=== PATIENT | female | born 1960 | race Caucasian/White ===

== ENCOUNTER → 2025-09-07 | Outpatient (CLI) | payer OTHER, SELFPAY ==
--- OUTSIDE RECORDS SUMMARY | 2025-09-07 07:20 | XMS RPT_ITS | CCD ---
Author Organization [facility] Care Team Providers Care Extrusion Bender Name Role Phone Kory Alejandro Primary Care Provider KARLAAUGUSTINE KORY Tom Primary Care Unavailable Javon Kory Tom Primary Care Provider Karlanathennikos Kory Tom Unavailable [phone] Flip Barbosa Unavailable Javon Kory Tom Unavailable Unavailable Unavailable Unavailable Unavailable Unavailable Primary Care Provider Unavailabl e Javon Kory Tom Primary Care Provider Javon DOLL Kory Tom Primary Care Provider [phone] Flip Barbosa Admitting Unavailable Javon, Dr. Kory Lae Primary Care Debbie vailable Flip Barbosa Referring Unavailable Flip Barbosa Attending Unavailable Dr. Kory Alejandro Primary Care Debbie vailable Flip Barbosa Attending Unavailable Abbas, Dr. Carbajal Attending Unavailable Dr. Kory Alejandro Primary Care Debbie vailable Kory Alejandro DO Primary Care Provider NORMAN DURON Attending Unavailable KORY ALEJANDRO Primary Care Unavailable Javon DOLL Kory Tom Primary Care Provider Dr. Norman Duron Attending Unav ailable Javon, Dr. Kory Lea Primary Care Debbie vailable FLIP BARBOSA Attending Unavailable Dr. Kory Alejandro Referring Debbie vailable Javon, Dr. Kory Lea Primary Care Debbie vailable FLIP BARBOSA Attending Unavailable Javon, Dr. Kory Lea Referring Debbie vailable Javon, Dr. Kory Lea Primary Care Debbie vailable NORMAN DURON Referring Unavailable GENERIC PROVIDER, NO ASSIGNED PCP Primary Care Unavailable NORMAN JUARES Attending Unavailable GENERIC PROVIDER, NO ASSIGNED PCP Primary Care Unavailable NORMAN JUARES Referring Unavailable GENERIC PROVIDER, NO ASSIGNED PCP Primary Care Unavailable NORMAN JUARES Referring Unavailable GENERIC PROVIDER, NO ASSIGNED PCP Primary Care Unavailable OZIEL ROCK, PILO BRAGA Attending Unav ailable RC, [place] Primary Care Unavailable SELF Referring Unavailable OZIEL ROCK, PILO BRAGA Attending Unav ailable LANZINGER PILO ROCK Referring Unav ailable RC, [place] Primary Care Unavailable OZIEL ROCK, PILO BRAGA Admitting Unav ailable LANZINGER , PILO BRAGA Attending Unav ailable RC, [place] Primary Care Unavailable SELF Referring Unavailable OZIEL ROCK, PILO BRAGA Attending Unav ailable RC, [place] Primary Care Unavailable SANCHEZZINGNARAYAN ROCK, PILO BRAGA Attending Unav ailable RC, [place] Primary Care Unavailable SELF Referring Unavailable KORY ALEJANDRO Attending Unavailable KORY ALEJANDRO Primary Care Unavailable JAVON, KORY Attending Unavailable KORY ALEJANDRO Primary Care Unavailable KORY ALEJANDRO Primary Care Unavailable KORY ALEJANDRO Attending Unavailable GABINO LUIS Referring Unavai angel ALEJANDRO, [facility] Primary Care Unavail able GABINO LUIS Referring Unavai labquan ALEJANDRO, [facility] Primary Care Unavail able CLINT BERNSTEIN~[phone], CLINT Bañuelos At tending Unavailable CLINT BERNSTEIN~[phone], CLINT Bañuelos Ad mitting Unavailable AA NO PCP NO PCP, NO PCP~[phone] AA NO PCP Pr imary Care Unavailable RC, ROCKY Primary Care Unavailable CORDELL HERNANDEZ Attending Unavailable RC, ROCKY Primary Care Unavailable SELF Referring Unavailable JEMMA MCKEE Attending Unavailable MIRIAN GARCIA Attending Unavailable KORY ALEJANDRO Primary Care Unavail able FLIP BARBOSA Attending Unavailable KORY ALEJANDRO Primary Care Unavail able FLIP BARBOSA Attending Unavailable GENERIC PROVIDER, NO ASSIGNED PCP Primary Care Unavailable GAURANG GIL Attending Unav ailable [facility] Care Unavail able EDGAR BARBOSAONIS K Attending Unavailable [facility] Primary Care Unavail able MARY LIM Attending Unavailable MIRIAN GARCIA Attending Unavailable GENERIC PROVIDER, NO ASSIGNED PCP Primary Care Unavailable HIGABRIELLA, FLIP K Attending Unavailable GENERIC PROVIDER, NO ASSIGNED PCP Primary Care Unavailable MIRIAN GARCIA Attending Unavailable GENERIC PROVIDER, NO ASSIGNED PCP Primary Care Unavailable DEBJAArabella, FLIP K Attending Unavailable [facility] Primary Care Unavail able HIJAZ, FLIP K Attending Unavailable [facility] Primary Care Unavail able MIRIAN GARCIA Attending Unavailable PETRILL, [facility] Primary Care Unavail able GENERIC PROVIDER, NO ASSIGNED PCP Primary Care Unavailable GENERIC PROVIDER, NO ASSIGNED PCP Primary Care Unavailable GENERIC PROVIDER, NO ASSIGNED PCP Primary Care Unavailable [facility] Primary Care Unavail able PETRILLA, [facility] Primary Care Unavail able NORMAN DURON Referring Unavailable GABINO LUIS Referring Unavai lable PETRILL, [facility] Primary Care Unavail able PETRILL, [facility] Referring Unavail able PETRILLA, [facility] Primary Care Unavail able PETRILLA, [facility] Referring Unavail able PETRILLA, [facility] Primary Care Unavail able HIJAZ, FLIP K Admitting Unavailable HIJAZ, FLIP K Attending Unavailable [facility] Primary Care Unavail able HIJAZ, FLIP K Admitting Unavailable HIJAZ, FLIP K Attending Unavailable [facility] Primary Care Unavail able NORMAN DURON Referring Unavailable NORMAN DURON Referring Unavailable REHAN MCRAE Referring Unavailable REHAN MCRAE Attending Unavailable Care Physician, No Primary Primary Care Unava ilable Allergies Allergy Classification Reported Allergen(s) Allergy Type Date of Onset Reaction(s) Facility Adhesive Tape (8 sources) Adhesive Tape Substance Allergy RI-Bgxzjfi-Ph cullen [facility] [address] Work Phone: Bupivacaine (16 sources) Bupivacaine; Translations: [Marcaine SOLN] Drug Allergy Anaphylaxis [facility] Chlorhexidine (1 source) Chlorhexidine Drug Allergy Rash [facility] Latex (1 source) Latex Substance Allergy Unknown [facility] Comment on above: allergic to powder i n gloves Lidocaine (1 source) Lidocaine Drug Allergy Anaphylaxis [facility] Nuts (not including peanuts) (9 sources) Nuts (not including peanuts) Food Allergy Other, Angioedema, Facial Swelling [facility] Comment on above: SOB Opioid Agonists (9 sources) Meperidine; Translations: [Demerol SOLN] Drug Allergy Unknown [facility] Comment on above: Pt states she was to ldshe was allergic, but does not know reaction Procaine (1 source) Procaine Drug Allergy Anaphylaxis [facility] Sulfonamides (antibiotic) (9 sources) Sulfonamides (Antibiotic); Translations: [sulfa] Drug Allergy Rash [facility] Unclassified (1 source) Tree Resp Distress, Rash [facility] Unclassified (1 source) Tape - Adhesive, Bandaids, Paper Blistering Dis. [facility] Unclassified (6 sources) Soap; Translations: [SOAP] 01-03-20 Rash, Itching [facility] Unclassified (6 sources) Perfume; Translations: [PERFUME] 01-03-20 Resp Distress, Other [facility] Comment on above: CAN'T CATCH MY EDVIN TH Unclassified (1 source) ULTRASOUND GEL- ITCHING RASH Rash, Itching [facility] Comment on above: ULTRASOUND GEL- ITCH ING RASH Unclassified (1 source) BLUE DYE- RASH, ITCHING Rash, Itching [facility] Comment on above: BLUE DYE- RASH, ITCH ING Unclassified (20 sources) Novocain SOLN; Translations: [Novocain SOLN] Allergy to drug (finding) [place]-Duvdwki-Ms [place] [address] Work Phone: Unclassified (20 sources) H-R Ultrasound Jelly GEL; Translations: [H-R Ultrasound Jelly GEL] Allergy to drug (finding) AD-Xdnmchr-Hs [place] [address] Work Phone: Unclassified (20 sources) [place]; Translations: [WALNUT] Allergy to substance (finding) 07-10-20 [facility] Other [place] [facility] Unclassified (20 sources) Latex Exam Gloves MISC; Translations: [Latex Exam Gloves MISC] Allergy to drug (finding) MB-Whmafvq-Kd [facility] [address] Work Phone: Unclassified (20 sources) Chlorhexidine CONC; Translations: [Chlorhexidine CONC] Allergy to drug (finding) JD-Hwzwovr-Wv [facility] [address] Work Phone: Unclassified (20 sources) Adhesive Tape TAPE; Translations: [Adhesive Tape TAPE] Allergy to drug (finding) EX-Dblwptx-Yp [facility] [address] Work Phone: (20 sources) Adhesive Tape Propensity to adverse reactions to drug 10-01-20 15 [place] (20 sources) Meperidine; Translations: [Demerol SOLN] Drug Allergy 10-01-20 15 Unknown [place] (4 sources) Sulfonamides (Antibiotic) Propensity to adverse reactions to drug 10-01-20 15 [place] (20 sources) Other; Translations: [OTHER] Propensity to adverse reactions 12-09-19 16 Anaphylaxis [place] (20 sources) Bupivacaine; Translations: [BUPIVACAINE HCL] Drug Allergy 07-18-20 20 [facility] Work Phone: (20 sources) pine bark extract Drug Allergy 11-01-18 70 Dermatitis, Hives, Itching, Shortness Of Breath [facility] Work Phone: (20 sources) Ultrasound Gel Propensity to adverse reactions to drug 07-02-19 96 Hives, Itching [facility] Work Phone: (20 sources) Bupivacaine; Translations: [Marcaine SOLN] Drug Allergy 07-18-20 20 [facility] (20 sources) Bupivacaine; Translations: [Bupivacaine HCl SOLN] Drug Allergy [facility] Work Phone: (20 sources) Hale nut Allergy to substance (finding) [facility] Work Phone: (20 sources) Sulfamethoxazole; Translations: [sulfa] Drug Allergy [facility] Work Phone: (20 sources) Lidocaine; Translations: [lidocaine] Drug Allergy 11-14-19 16 Anaphylaxis EN-Ummtmsp-Vj [place] [address] Work Phone: (2 sources) Sulphated Oil Drug Allergy 06-30-20 22 Rash [facility] (9 sources) Sucralfate; Translations: [Carafate] Drug Allergy [facility] [address] Work Phone: (20 sources) Chlorhexidine; Translations: [CHLORHEXIDINE] Drug Allergy 07-01-20 [facility] (20 sources) Meperidine Drug Allergy 09-04-20 22 [facility] (20 sources) Procaine; Translations: [PROCAINE] Drug Allergy 07-01-20 [facility] (20 sources) Sucralfate; Translations: [SUCRALFATE] Drug Allergy 07-01-20 [facility] (20 sources) Sulfamethoxazole; Translations: [SULFAMETHOXAZOLE ] Allergy to substance 01-02-20 [facility] (20 sources) Sulfonamides (Antibiotic) Drug Intolerance 10-01-20 15 [facility] (20 sources) Latex; Translations: [LATEX] Propensity to adverse reactions 06-24-20 22 [facility] (18 sources) Wound Dressings Drug Allergy 06-01-20 23 Rash [facility] (20 sources) moxifloxacin; Translations: [Moxifloxacin HCl TABS] Drug Allergy 07-30-20 23 Swelling, Anaphylaxis [facility] [address] Work Phone: (3 sources) Cashew nut Propensity to adverse reactions 10-07-20 23 Shortness of breath [facility] (13 sources) Blue Dyes (Parenteral) Propensity to adverse reactions 01-05-20 24 Hives, Itching [facility] (11 sources) cashew nut allergenic extract Drug Allergy 10-07-20 23 Shortness of breath [facility] (2 sources) Hale nut Propensity to adverse reactions 10-19-20 24 Shortness of breath [facility] (2 sources) Gyne-Moistrin Drug Allergy 10-19-20 24 Hives [facility] (8 sources) Bupivacaine; Translations: [BUPIVACAINE] Drug Allergy 07-01-20 22 [facility] 1 Repository (5 sources) Guamanian walnut allergenic extract; Translations: [ANDORRAN WALNUT] Drug Allergy 01-03-20 24 [facility] 1 Repository (7 sources) Hale nut; Translations: [PINE NUT] Propensity to adverse reactions to food (disorder) 11-01-18 70 [facility] 1 Repository (5 sources) Quinolones (Antibiotic); Translations: [QUINOLONES] Propensity to adverse reactions to drug (disorder) 01-03-20 24 [facility] 1 Repository (7 sources) Sulfonamides (Antibiotic); Translations: [SULFA (SULFONAMIDE ANTIBIOTICS)] Propensity to adverse reactions to drug (disorder) 07-01-20 22 [facility] 1 Repository (5 sources) Tree and shrub pollen; Translations: [TREE AND SHRUB POLLEN] Propensity to adverse reactions to drug (disorder) 01-03-20 24 [facility] 1 Repository (4 sources) AMOXICILLIN-POT CLAVULANATE; Translations: [AMOXICILLIN-POT CLAVULANATE] Propensity to adverse reactions to drug (disorder) 07-20-20 24 [facility] 1 Repository (5 sources) NUT - UNSPECIFIED; Translations: [NUT - UNSPECIFIED] Propensity to adverse reactions to food (disorder) 01-03-20 24 [facility] 1 Repository (5 sources) ADHESIVE TAPE-SILICONES; Translations: [ADHESIVE TAPE-SILICONES] Propensity to adverse reactions to drug (disorder) 01-03-20 24 [facility] 1 Repository (7 sources) BLUE DYE; Translations: [BLUE DYE] Propensity to adverse reactions to drug (disorder) 07-01-20 22 [facility] 1 Repository (2 sources) Adhesive Tape; Translations: [ADHESIVE TAPE (ROSINS)] Propensity to adverse reactions (disorder) 10-01-20 15 [facility] Repository (3 sources) moxifloxacin; Translations: [MOXIFLOXACIN] Drug Allergy 06-18-20 23 [facility] Repository (2 sources) tree nut, unspecified; Translations: [TREE NUTS] Propensity to adverse reactions to drug (disorder) 07-03-20 [facility] Repository (1 source) Adhesive agent; Translations: [Adhesive] Propensity to adverse reactions (disorder) [facility] Repository (1 source) Bupivacaine Drug Allergy [facility] Repository (1 source) Chlorhexidine Drug Allergy [facility] Repository (1 source) Lidocaine Drug Allergy [facility] Repository (1 source) Meperidine Drug Allergy [facility] Repository (1 source) Sucralfate Drug Allergy [facility] Repository (1 source) Sulfonamides (Antibiotic) Drug allergy (disorder) [facility] Repository (1 source) nut Drug allergy (disorder) [facility] Repository (1 source) Novocain Drug allergy (disorder) [facility] Repository (1 source) ultrasound coupling medium Drug allergy (disorder) [facility] Repository (1 source) pine oil; Translations: [pine oil] Food allergy (disorder) [facility] Repository (1 source) fentaNYL; Translations: [FENTANYL] Drug Allergy 09-03-20 [facility] 2 Repository Medications Current Medications Medication Drug Class(es) Dates Sig (Normalized) Sig (Original) acetaminophen 500 mg oral tablet (20 sources) Start: 08-20-2021 acetaminophen (Tylenol) 500 MG tablet Take by mouth. 08/20/2021 Active Start: 08-20-2021 Tylenol Extra Strength 500 MG Oral Tablet Quantity: 0 Refills: 0 Ordered: 20-Aug-2021 DO Start : 20-Aug-2021 Active Start: 03-25-2021 End: 04-03-2021 take 2 tablets by mouth every six hours Tylenol Extra Strength 500 mg oral tablet ; 2 tab(s) orally every 6 hours - do not combine with Tylenol #3 Quantity: 30 Refills: 0 Ordered: 25-Mar-2021 Jacinta Mclaughlin Start: 25-Mar-2021 End: 03-Apr-2021 Generic Substitution Allowed Comments: This product contains acetaminophen. Do not use with any other product containing acetaminophen to prevent possible liver damage. acetaminophen (T ylenol 8 Hour) 650 MG ER tablet Take 650 mg by mouth. 0 Active Comment on above: This product contain s acetaminophen. Do not use with any other product containing acetaminophen to prevent possible liver damage. Take 650 mg by mouth . amoxicillin 500 mg oral capsule (1 source) Penicillin-class Antibacterial Start: 10-29-20 amoxicillin (AMOXIL) 500 MG capsule Four tabs 30-60 minutes before dental procedures 24 capsule 1 10/29/2020 Active Anusol Suppositories 51% rectal suppository (obsolete) (1 source) Anusol Supposito dru 51% rectal suppository (obsolete) ; 1 suppository(ies) rectal 2 times a day, As Needed Quantity: 0 Refills: 0 Ordered: 17-Mar-2021 Josie Álvarez Generic Substitution Allowed ascorbic acid 1000 mg oral tablet (20 sources) Vitamin C take 1 tablet by mouth in the morning Ascorbic Acid (vitamin C) 1000 MG tablet Take 1,000 mg by mouth in the morning and 1,000 mg in the evening. Active V-R Vitamin C 10 00 MG TABS Quantity: 0 Refills: 0 Ordered: 26-Nov-2022 DO Active azithromycin 250 mg oral tablet (1 source) Macrolide Antimicrobial Start: 01-01-2023 End: 01-06-2023 azithromycin (Zithromax) 250 MG tablet Take 2 tabs (500 mg) by mouth today, than 1 daily for 4 days. 6 tablet 0 01/01/2023 01/06/2023 Active baclofen 10 mg oral tablet (2 sources) gamma-Aminobutyric Acid-ergic Agonist Start: 10-19-2024 baclofen (Lioresal) 10 MG tablet 10 mg tab compounded to be taken vaginally q day 30 tablet 2 10/19/2024 Active busPIRone hydrochloride 5 mg oral tablet (12 sources) Start: 05-16-2024 End: 04-23-2025 take 1 tablet by mouth twice daily busPIRone (Buspar) 5 MG tablet Take 1 tablet (5 mg) by mouth 2 times daily for 60 doses. 180 tablet 1 07/27/2024 04/23/2025 Active Calcium (13 sources) Phosphate Binder, Calcium take 1200 mg by mouth once daily CALCIUM PO Take 1,200 mg by mouth daily. Active take 1200 mg by mouth once daily CALCIUM PO Take 1,200 mg by mouth daily. 0 Active Calcium 600-5 MG-MCG tablet (13 sources) Calcium 600-5 MG-MCG tablet Take by mouth. 0 Active cefuroxime 250 mg oral tablet (1 source) Cephalosporin Antibacterial Start: 3 End: 3 take 1 tablet by mouth twice daily cefuroxime (Ceftin) 250 MG tablet Take 1 tablet (250 mg) by mouth 2 times daily for 10 days. 20 tablet 0 11/27/2022 12/07/2022 Active cloNIDine hydrochloride 0.1 mg oral tablet (20 sources) Central alpha-2 Adrenergic Agonist Start: 2 End: 4 take 1 tablet by mouth once daily cloNIDine (Catapres) 0.1 MG tablet TAKE 1 TABLET BY MOUTH EVERY DAY 90 tablet 1 10/09/2024 Active cloNIDine HCl - 0.1 MG Oral Tablet Quantity: 0 Refills: 0 Ordered: 21-Nov-2021 DO Active cloNIDine HCl (C ATAPRES) 0.1 mg tablet Take 0.1 mg by mouth. 0 Active Comment on above: Take 0.1 mg by mouth . Collagen (4 sources) take 1 capsule by mouth once daily collagen ; 1 cap(s) orally once a day Quantity: 0 Refills: 0 Ordered: 17-Mar-2021 Josie Álvarez Generic Substitution Allowed COLLAGEN PO Take by mouth 0 Active cycloSPORINE (Restasis) 0.05 % ophthalmic emulsion (2 sources) Start: 09-25-2024 take 1 drop(s) into the eye(s) every twelve hours cycloSPORINE (Restasis) 0.05 % ophthalmic emulsion Administer 1 drop into both eyes every 12 hours. 09/25/2024 Active d-biotin 2.5 mg oral tablet (1 source) take 1 tablet by mouth once daily biotin 2.5 mg oral tablet ; 1 tab(s) orally once a day Quantity: 0 Refills: 0 Ordered: 17-Mar-2021 Josie Álvarez Generic Substitution Allowed gabapentin 300 mg oral capsule (20 sources) Anti-epilepti c Agent Start: 10-11-2024 take 1 capsule by mouth three times daily gabapentin (Neurontin) 300 MG capsule TAKE 1 CAPSULE BY MOUTH THREE TIMES DAILY 90 capsule 2 10/11/2024 Active Start: 07-07-2024 gabapentin (Ne urontin) 300 MG capsule One tid 90 capsule 2 07/07/2024 Active Start: 03-30-2023 End: 07-07-2024 gabapentin (Neurontin) 300 M G capsule Take one BID 60 capsule 2 01/05/2024 Active Start: 01-01-2023 End: 01-08-2023 gabapentin (Neurontin) 300 M G capsule Take one BID 60 capsule 2 01/08/2023 Active Start: 10-01-2022 End: 01-08-2023 gabapentin (Neurontin) 100 M G capsule One q AM 30 capsule 2 10/01/2022 01/08/2023 Discontinued (Dose adjustment) Start: 10-01-2022 End: 01-01-2023 take 1 capsule by mouth once daily at bedtime gabapentin (Neurontin) 300 MG capsule TAKE 1 CAPSULE BY MOUTH EVERYDAY AT BEDTIME 30 capsule 2 10/01/2022 01/01/2023 Discontinued (Reorder) Start: 07-04-2021 End: 07-04-2022 take 1 capsule by mouth once daily at bedtime Gabapentin 300 MG Oral Capsule TAKE 1 CAPSULE BY MOUTH EVERYDAY AT BEDTIME Quantity: 30 Refills: 2 Ordered: 11-Nov-2021 Vaughn Galvan MD Start : 04-Jul-2021 Active Start: 04-21-2021 End: 12-25-2021 take 1-3 capsules by mouth at bedtime Gabapentin 100 MG Oral Capsule TAKE 1 TO 3 CAPSULES BY MOUTH AT BEDTIME Quantity: 90 Refills: 2 Ordered: 18-Aug-2021 Vaughn Galvan MD Start : 21-Apr-2021 End : 25-Dec-2021 Complete Comment on above: TAKE 1 CAPSULE BY MO UT EVERYDAY AT BEDTIME Handicap Placard MISC (1 source) Start: 08-07-2020 Handicap Placard MISC by Does not apply route DX: Hip and Lumbar Arthritis Duration: 2 years 1 each 0 08/07/2020 Active hydrocortisone acetate 25 mg rectal suppository (20 sources) Corticosteroid Start: 07-23-2020 End: 01-01-2023 hydrocortisone (Anusol-HC) 25 MG suppository Date: 07/23/2020 09:49:00 EDT 07/23/2020 Active Anusol-HC 25 MG Rectal Suppository Quantity: 0 Refills: 0 Ordered: 28-Aug-2020 DO Active hydroxychloroquine sulfate 200 mg oral tablet (9 sources) Antimalarial, Antirheumatic Agent Start: 03-28-2024 hydroxychloroquine (Plaquenil) 200 MG tablet Take 200 mg by mouth Nightly. Takes 100 mg in am 03/28/2024 Active Magnesium (20 sources) take 1 capsule by mouth once daily Magnesium 400 MG capsule Take 400 mg by mouth daily. Active take 1 capsule by mouth once yemi ly Magnesium 400 MG capsule Take 400 mg by mouth daily. 0 Active methylPREDNISolone (1 source) Corticosteroid Start: 11-27-2022 End: 12-04-2022 methylPREDNISolone (Medrol Dospak) 4 MG tablets Take as directed on package. 21 tablet 0 11/27/2022 12/04/2022 Active mometasone furoate 0.001 mg/mg topical ointment (18 sources) Corticosteroid Start: 10-01-2022 End: 10-08-2023 mometasone (Elocon) 0.1 % ointment Apply topically daily. 60 g 1 10/01/2022 10/08/2023 Active Multiple Vitamin (Multi Vitamin) tablet (20 sources) Multiple Vitamin (Multi Vitamin) tablet Every 24 hours. Active Multiple Vitamin (Multi Vitamin) tablet Every 24 hours. 0 Active Multiple Vitamins-Minerals (MULTIVITAL PO) (3 sources) Multiple Vitamins-Minerals (MULTIVITAL PO) Take by mouth 0 Active Multivitamin preparation (1 source) take 1 tablet by mouth once daily Multiple Vitamins oral tablet ; 1 tab(s) orally once a day Quantity: 0 Refills: 0 Ordered: 17-Mar-2021 Josie Álvarez Generic Substitution Allowed ondansetron 8 mg oral tablet (20 sources) Serotonin-3 Receptor Antagonist Start: 021 Ondansetron 8 MG Oral Tablet Disintegrating Quantity: 60 Refills: 0 Ordered: 09-May-2021 DO Start : 09-May-2021 Active Start: 02-12-2021 End: 10-19-2024 take 1 tablet by mouth every eight hours as needed for nausea and vomiting ondansetron (Zofran) 8 MG tablet Take 1 tablet (8 mg) by mouth every 8 hours as needed for nausea or vomiting. 20 tablet 2 10/19/2024 Active Start: 10-11-2020 take 1 tablet by qamar th every eight hours as needed for nausea ondansetron (ZOFRAN) 8 MG tablet Take 1 tablet by mouth every 8 hours as needed for Nausea or Vomiting 30 tablet 0 10/11/2020 Active Ondansetron HCl - 8 MG Oral Tablet Quantity: 0 Refills: 0 Ordered: 21-Apr-2021 DO Active Comment on above: Take 8 mg by mouth. oxyCODONE hydrochloride 5 mg oral tablet (1 source) Opioid Agonist Start: 03-25-20 End: 03-28-20 take 1 tablet by mouth every six hours oxyCODONE 5 mg oral tablet ; 1 tab(s) orally every 6 hours as needed for [id number] Quantity: 15 Refills: 0 Ordered: 25-Mar-2021 Jacinta Mclaughlin Start: 25-Mar-2021 End: 28-Mar-2021 Generic Substitution Allowed Comments: Caution federal law prohibits the transfer of this drug to any person other than the person for whom it was prescribed.It is very important that you take or use this exactly as directed. Do not skip doses or discontinue unless directed by your doctor.May cause drowsiness or dizziness.This prescription cannot be refilled.Using more of this medication than prescribed may cause serious breathing problems. Comment on above: Caution federal law prohibits the transfer of this drug to any person other than the person for whom it was prescribed.It is very important that you take or use this exactly as directed. Do not skip doses or discontinue unless directed by your doctor.May cause drowsiness or dizziness.This prescription cannot be refilled.Using more of this medication than prescribed may cause serious breathing problems. SUMAtriptan 100 mg oral tablet (20 sources) Serotonin-1b and Serotonin-1d Receptor Agonist Start: 07-03-20 End: 08-28-20 24 take 1 tablet by mouth every two hours, then take 4 tablets by mouth every week SUMAtriptan (Imitrex) 100 MG tablet TAKE 1 TABLET BY MOUTH at on set of headache, may repeat in 2 hours if needed. no more than 4 tablets per week 9 tablet 5 08/28/2024 Active Start: 01-09-2022 SUMAtriptan Sanchez ccinate 100 MG Oral Tablet Quantity: 8 Refills: 0 Ordered: 26-Jan-2022 DO Start : 09-Jan-2022 Active Start: 01-09-2022 SUMAtriptan (I MITREX) 100 mg tablet One stat and repeat in 2 hours , no more than 4 per week 0 01/09/2022 Active Start: 08-20-2021 Imitrex 6 MG/0 .5ML SOLN Quantity: 0 Refills: 0 Ordered: 20-Aug-2021 DO Start : 20-Aug-2021 Active Comment on above: One stat and repeat in 2 hours , no more than 4 per week UNABLE TO FIND (18 sources) take 6000 mg by mout h in the morning UNABLE TO FIND Take 6,000 mg by mouth in the morning and 6,000 mg in the evening. Collagen . Active take 6000 mg by mouth in the mor gokul UNABLE TO FIND Take 6,000 mg by mouth in the morning and 6,000 mg in the evening. Collagen . 0 Active vit A,C and M-zrfpzk-qajsusg s (Ocuvite) tablet (13 sources) vit A,C and E-yomaira tein-minerals (Ocuvite) tablet Active vit A,C and E-yomaira tein-minerals (Ocuvite) tablet vitamin b12 0.0667 mg/ml ora l solution (8 sources) Vitamin B12 Cyanocobalamin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 L100.0100, L3200.1100, L500.3400 #### [facility] [address] [place], [address] BUN/CRE Normal 10-20 [facility] Comment on above: Result Comment: @ PA TEINT UOSET AND WITH HOLDING SIMPLE THINGS WITH @REGISTRATION. ALINA HAS MANY NOTES. AFTER WORKING ON @ HER ORDER, MISC TESTS TOO. CALLED HER BACK. SHE WANTED @ TO LEAVE. LATE FOR APPT. I SAID I COULD DRAW. SHE SAT @ SIDEWAYS IN THE CHAIR AND WANTED HAND DRAWN I THINK. I @ ASKED HER TO TURN HER BODY AND LEGS TO BE IN FRONT SO I @ COULD LOOK AT OPTIONS AND DRAW. SHE INSTANTLY SAID GIVE ME @ MY ORDERS, AND LEFT. THAT QUICK. Performed By: #### L 500.2500, L100.0100, L3200.1100, L500.3400 #### [facility] [address] [place], [address] Calcium Normal 7.6-11.0 [facility] Comment on above: Result Comment: @ PA TEINT UOSET AND WITH HOLDING SIMPLE THINGS WITH @REGISTRATION. ALINA HAS MANY NOTES. AFTER WORKING ON @ HER ORDER, MISC TESTS TOO. CALLED HER BACK. SHE WANTED @ TO LEAVE. LATE FOR APPT. I SAID I COULD DRAW. SHE SAT @ SIDEWAYS IN THE CHAIR AND WANTED HAND DRAWN I THINK. I @ ASKED HER TO TURN HER BODY AND LEGS TO BE IN FRONT SO I @ COULD LOOK AT OPTIONS AND DRAW. SHE INSTANTLY SAID GIVE ME @ MY ORDERS, AND LEFT. THAT QUICK. Performed By: #### L 500.2500, L100.0100, L3200.1100, L500.3400 #### [facility] [address] [place], [address] CL Normal 98-108 [facility] Comment on above: Result Comment: @ PA TEINT UOSET AND WITH HOLDING SIMPLE THINGS WITH @REGISTRATION. ALINA HAS MANY NOTES. AFTER WORKING ON @ HER ORDER, MISC TESTS TOO. CALLED HER BACK. SHE WANTED @ TO LEAVE. LATE FOR APPT. I SAID I COULD DRAW. SHE SAT @ SIDEWAYS IN THE CHAIR AND WANTED HAND DRAWN I THINK. I @ ASKED HER TO TURN HER BODY AND LEGS TO BE IN FRONT SO I @ COULD LOOK AT OPTIONS AND DRAW. SHE INSTANTLY SAID GIVE ME @ MY ORDERS, AND LEFT. THAT QUICK. Performed By: #### L 500.2500, L100.0100, L3200.1100, L500.3400 #### [facility] [address] [place], [address] CO2 Normal 21.0-32.0 [facility] Comment on above: Result Comment: @ PA TEINT UOSET AND WITH HOLDING SIMPLE THINGS WITH @REGISTRATION. ALINA HAS MANY NOTES. AFTER WORKING ON @ HER ORDER, MISC TESTS TOO. CALLED HER BACK. SHE WANTED @ TO LEAVE. LATE FOR APPT. I SAID I COULD DRAW. SHE SAT @ SIDEWAYS IN THE CHAIR AND WANTED HAND DRAWN I THINK. I @ ASKED HER TO TURN HER BODY AND LEGS TO BE IN FRONT SO I @ COULD LOOK AT OPTIONS AND DRAW. SHE INSTANTLY SAID GIVE ME @ MY ORDERS, AND LEFT. THAT QUICK. Performed By: #### L 500.2500, L100.0100, L3200.1100, L500.3400 #### [facility] [address] [place], [place], [phone] CREAT,SERUM Normal 0.70-1.20 [facility] Comment on above: Result Comment: @ PA TEINT UOSET AND WITH HOLDING SIMPLE THINGS WITH @REGISTRATION. ALINA HAS MANY NOTES. AFTER WORKING ON @ HER ORDER, MISC TESTS TOO. CALLED HER BACK. SHE WANTED @ TO LEAVE. LATE FOR APPT. I SAID I COULD DRAW. SHE SAT @ SIDEWAYS IN THE CHAIR AND WANTED HAND DRAWN I THINK. I @ ASKED HER TO TURN HER BODY AND LEGS TO BE IN FRONT SO I @ COULD LOOK AT OPTIONS AND DRAW. SHE INSTANTLY SAID GIVE ME @ MY ORDERS, AND LEFT. THAT QUICK. Performed By: #### L 500.2500, L100.0100, L3200.1100, L500.3400 #### [facility] [address] [place], [address] eGFR Normal >60 [facility] Comment on above: Result Comment: @ PA TEINT UOSET AND WITH HOLDING SIMPLE THINGS WITH @REGISTRATION. ALINA HAS MANY NOTES. AFTER WORKING ON @ HER ORDER, MISC TESTS TOO. CALLED HER BACK. SHE WANTED @ TO LEAVE. LATE FOR APPT. I SAID I COULD DRAW. SHE SAT @ SIDEWAYS IN THE CHAIR AND WANTED HAND DRAWN I THINK. I @ ASKED HER TO TURN HER BODY AND LEGS TO BE IN FRONT SO I @ COULD LOOK AT OPTIONS AND DRAW. SHE INSTANTLY SAID GIVE ME @ MY ORDERS, AND LEFT. THAT QUICK. Performed By: #### L 500.2500, L100.0100, L3200.1100, L500.3400 #### [facility] [address] [place], [place], [phone] GAP Normal 5-15 [facility] Comment on above: Result Comment: @ PA TEINT UOSET AND WITH HOLDING SIMPLE THINGS WITH @REGISTRATION. ALINA HAS MANY NOTES. AFTER WORKING ON @ HER ORDER, MISC TESTS TOO. CALLED HER BACK. SHE WANTED @ TO LEAVE. LATE FOR APPT. I SAID I COULD DRAW. SHE SAT @ SIDEWAYS IN THE CHAIR AND WANTED HAND DRAWN I THINK. I @ ASKED HER TO TURN HER BODY AND LEGS TO BE IN FRONT SO I @ COULD LOOK AT OPTIONS AND DRAW. SHE INSTANTLY SAID GIVE ME @ MY ORDERS, AND LEFT. THAT QUICK. Performed By: #### L 500.2500, L100.0100, L3200.1100, L500.3400 #### [facility] [address] [place], [place], [phone] GLU Normal 70-99 [facility] Comment on above: Result Comment: @ PA TEINT UOSET AND WITH HOLDING SIMPLE THINGS WITH @REGISTRATION. ALINA HAS MANY NOTES. AFTER WORKING ON @ HER ORDER, MISC TESTS TOO. CALLED HER BACK. SHE WANTED @ TO LEAVE. LATE FOR APPT. I SAID I COULD DRAW. SHE SAT @ SIDEWAYS IN THE CHAIR AND WANTED HAND DRAWN I THINK. I @ ASKED HER TO TURN HER BODY AND LEGS TO BE IN FRONT SO I @ COULD LOOK AT OPTIONS AND DRAW. SHE INSTANTLY SAID GIVE ME @ MY ORDERS, AND LEFT. THAT QUICK. Performed By: #### L 500.2500, L100.0100, L3200.1100, L500.3400 #### [facility] [address] [place], [address] Potassium Normal 3.3-5.1 [facility] Comment on above: Result Comment: @ PA TEINT UOSET AND WITH HOLDING SIMPLE THINGS WITH @REGISTRATION. ALINA HAS MANY NOTES. AFTER WORKING ON @ HER ORDER, MISC TESTS TOO. CALLED HER BACK. SHE WANTED @ TO LEAVE. LATE FOR APPT. I SAID I COULD DRAW. SHE SAT @ SIDEWAYS IN THE CHAIR AND WANTED HAND DRAWN I THINK. I @ ASKED HER TO TURN HER BODY AND LEGS TO BE IN FRONT SO I @ COULD LOOK AT OPTIONS AND DRAW. SHE INSTANTLY SAID GIVE ME @ MY ORDERS, AND LEFT. THAT QUICK. Performed By: #### L 500.2500, L100.0100, L3200.1100, L500.3400 #### [facility] [address] [place], [address] Basic Metabolic Profile (BMP) Normal 133-145 [facility] Comment on above: Result Comment: @ PA TEINT UOSET AND WITH HOLDING SIMPLE THINGS WITH @REGISTRATION. ALINA HAS MANY NOTES. AFTER WORKING ON @ HER ORDER, MISC TESTS TOO. CALLED HER BACK. SHE WANTED @ TO LEAVE. LATE FOR APPT. I SAID I COULD DRAW. SHE SAT @ SIDEWAYS IN THE CHAIR AND WANTED HAND DRAWN I THINK. I @ ASKED HER TO TURN HER BODY AND LEGS TO BE IN FRONT SO I @ COULD LOOK AT OPTIONS AND DRAW. SHE INSTANTLY SAID GIVE ME @ MY ORDERS, AND LEFT. THAT QUICK. Performed By: #### L 500.2500, L100.0100, L3200.1100, L500.3400 #### [facility] [address] [place], [address] CBC W/Diff, Automatedon 11-0 Absolute Neut Normal 2.0-7.7 [facility] Comment on above: Result Comment: @ PA TEINT UOSET AND WITH HOLDING SIMPLE THINGS WITH @REGISTRATION. ALINA HAS MANY NOTES. AFTER WORKING ON @ HER ORDER, MISC TESTS TOO. CALLED HER BACK. SHE WANTED @ TO LEAVE. LATE FOR APPT. I SAID I COULD DRAW. SHE SAT @ SIDEWAYS IN THE CHAIR AND WANTED HAND DRAWN I THINK. I @ ASKED HER TO TURN HER BODY AND LEGS TO BE IN FRONT SO I @ COULD LOOK AT OPTIONS AND DRAW. SHE INSTANTLY SAID GIVE ME @ MY ORDERS, AND LEFT. THAT QUICK. Performed By: #### L 500.2500, L100.0100, L3200.1100, L500.3400 #### [facility] [address] [place], [address] HCT Normal 37-47 [facility] Comment on above: Result Comment: @ PA TEINT UOSET AND WITH HOLDING SIMPLE THINGS WITH @REGISTRATION. ALINA HAS MANY NOTES. AFTER WORKING ON @ HER ORDER, MISC TESTS TOO. CALLED HER BACK. SHE WANTED @ TO LEAVE. LATE FOR APPT. I SAID I COULD DRAW. SHE SAT @ SIDEWAYS IN THE CHAIR AND WANTED HAND DRAWN I THINK. I @ ASKED HER TO TURN HER BODY AND LEGS TO BE IN FRONT SO I @ COULD LOOK AT OPTIONS AND DRAW. SHE INSTANTLY SAID GIVE ME @ MY ORDERS, AND LEFT. THAT QUICK. Performed By: #### L 500.2500, L100.0100, L3200.1100, L500.3400 #### [facility] [address] [place], [address] HGB Normal 12.0-15.0 [facility] Comment on above: Result Comment: @ PA TEINT UOSET AND WITH HOLDING SIMPLE THINGS WITH @REGISTRATION. ALINA HAS MANY NOTES. AFTER WORKING ON @ HER ORDER, MISC TESTS TOO. CALLED HER BACK. SHE WANTED @ TO LEAVE. LATE FOR APPT. I SAID I COULD DRAW. SHE SAT @ SIDEWAYS IN THE CHAIR AND WANTED HAND DRAWN I THINK. I @ ASKED HER TO TURN HER BODY AND LEGS TO BE IN FRONT SO I @ COULD LOOK AT OPTIONS AND DRAW. SHE INSTANTLY SAID GIVE ME @ MY ORDERS, AND LEFT. THAT QUICK. Performed By: #### L 500.2500, L100.0100, L3200.1100, L500.3400 #### [facility] [address] [place], [address] [phone]) MCH Normal 27.0-32.0 [facility] Comment on above: Result Comment: @ PA TEINT UOSET AND WITH HOLDING SIMPLE THINGS WITH @REGISTRATION. ALINA HAS MANY NOTES. AFTER WORKING ON @ HER ORDER, MISC TESTS TOO. CALLED HER BACK. SHE WANTED @ TO LEAVE. LATE FOR APPT. I SAID I COULD DRAW. SHE SAT @ SIDEWAYS IN THE CHAIR AND WANTED HAND DRAWN I THINK. I @ ASKED HER TO TURN HER BODY AND LEGS TO BE IN FRONT SO I @ COULD LOOK AT OPTIONS AND DRAW. SHE INSTANTLY SAID GIVE ME @ MY ORDERS, AND LEFT. THAT QUICK. Performed By: #### L 500.2500, L100.0100, L3200.1100, L500.3400 #### [facility] [address] [place], [place], [phone] [facility] Normal 32-36 [facility] Comment on above: Result Comment: @ PA TEINT UOSET AND WITH HOLDING SIMPLE THINGS WITH @REGISTRATION. ALINA HAS MANY NOTES. AFTER WORKING ON @ HER ORDER, MISC TESTS TOO. CALLED HER BACK. SHE WANTED @ TO LEAVE. LATE FOR APPT. I SAID I COULD DRAW. SHE SAT @ SIDEWAYS IN THE CHAIR AND WANTED HAND DRAWN I THINK. I @ ASKED HER TO TURN HER BODY AND LEGS TO BE IN FRONT SO I @ COULD LOOK AT OPTIONS AND DRAW. SHE INSTANTLY SAID GIVE ME @ MY ORDERS, AND LEFT. THAT QUICK. Performed By: #### L 500.2500, L100.0100, L3200.1100, L500.3400 #### [facility] [address] [place], [place], [phone] [facility] Normal 81-99 [facility] Comment on above: Result Comment: @ PA TEINT UOSET AND WITH HOLDING SIMPLE THINGS WITH @REGISTRATION. ALINA HAS MANY NOTES. AFTER WORKING ON @ HER ORDER, MISC TESTS TOO. CALLED HER BACK. SHE WANTED @ TO LEAVE. LATE FOR APPT. I SAID I COULD DRAW. SHE SAT @ SIDEWAYS IN THE CHAIR AND WANTED HAND DRAWN I THINK. I @ ASKED HER TO TURN HER BODY AND LEGS TO BE IN FRONT SO I @ COULD LOOK AT OPTIONS AND DRAW. SHE INSTANTLY SAID GIVE ME @ MY ORDERS, AND LEFT. THAT QUICK. Performed By: #### L 500.2500, L100.0100, L3200.1100, L500.3400 #### [facility] [address] [place], [address] ([phone]) NEUT% Normal 47-70 [facility] Comment on above: Result Comment: @ PA TEINT UOSET AND WITH HOLDING SIMPLE THINGS WITH @REGISTRATION. ALINA HAS MANY NOTES. AFTER WORKING ON @ HER ORDER, MISC TESTS TOO. CALLED HER BACK. SHE WANTED @ TO LEAVE. LATE FOR APPT. I SAID I COULD DRAW. SHE SAT @ SIDEWAYS IN THE CHAIR AND WANTED HAND DRAWN I THINK. I @ ASKED HER TO TURN HER BODY AND LEGS TO BE IN FRONT SO I @ COULD LOOK AT OPTIONS AND DRAW. SHE INSTANTLY SAID GIVE ME @ MY ORDERS, AND LEFT. THAT QUICK. Performed By: #### L 500.2500, L100.0100, L3200.1100, L500.3400 #### [facility] [address] [place], [place], [phone] ([phone]) PLT Normal 150-450 [facility] Comment on above: Result Comment: @ PA TEINT UOSET AND WITH HOLDING SIMPLE THINGS WITH @REGISTRATION. ALINA HAS MANY NOTES. AFTER WORKING ON @ HER ORDER, MISC TESTS TOO. CALLED HER BACK. SHE WANTED @ TO LEAVE. LATE FOR APPT. I SAID I COULD DRAW. SHE SAT @ SIDEWAYS IN THE CHAIR AND WANTED HAND DRAWN I THINK. I @ ASKED HER TO TURN HER BODY AND LEGS TO BE IN FRONT SO I @ COULD LOOK AT OPTIONS AND DRAW. SHE INSTANTLY SAID GIVE ME @ MY ORDERS, AND LEFT. THAT QUICK. Performed By: #### L 500.2500, L100.0100, L3200.1100, L500.3400 #### [facility] [address] [place], [address] [phone]) RBC Normal 4.2-5.4 [facility] Comment on above: Result Comment: @ PA TEINT UOSET AND WITH HOLDING SIMPLE THINGS WITH @REGISTRATION. ALINA HAS MANY NOTES. AFTER WORKING ON @ HER ORDER, MISC TESTS TOO. CALLED HER BACK. SHE WANTED @ TO LEAVE. LATE FOR APPT. I SAID I COULD DRAW. SHE SAT @ SIDEWAYS IN THE CHAIR AND WANTED HAND DRAWN I THINK. I @ ASKED HER TO TURN HER BODY AND LEGS TO BE IN FRONT SO I @ COULD LOOK AT OPTIONS AND DRAW. SHE INSTANTLY SAID GIVE ME @ MY ORDERS, AND LEFT. THAT QUICK. Performed By: #### L 500.2500, L100.0100, L3200.1100, L500.3400 #### [facility] [address] [place], [place], [phone] RDW CV Normal 11.6-14.6 [facility] Comment on above: Result Comment: @ PA TEINT UOSET AND WITH HOLDING SIMPLE THINGS WITH @REGISTRATION. ALINA HAS MANY NOTES. AFTER WORKING ON @ HER ORDER, MISC TESTS TOO. CALLED HER BACK. SHE WANTED @ TO LEAVE. LATE FOR APPT. I SAID I COULD DRAW. SHE SAT @ SIDEWAYS IN THE CHAIR AND WANTED HAND DRAWN I THINK. I @ ASKED HER TO TURN HER BODY AND LEGS TO BE IN FRONT SO I @ COULD LOOK AT OPTIONS AND DRAW. SHE INSTANTLY SAID GIVE ME @ MY ORDERS, AND LEFT. THAT QUICK. Performed By: #### L 500.2500, L100.0100, L3200.1100, L500.3400 #### [facility] [address] [place], [place], [phone] RDW SD Normal 35.1-43.9 [facility] Comment on above: Result Comment: @ PA TEINT UOSET AND WITH HOLDING SIMPLE THINGS WITH @REGISTRATION. ALINA HAS MANY NOTES. AFTER WORKING ON @ HER ORDER, MISC TESTS TOO. CALLED HER BACK. SHE WANTED @ TO LEAVE. LATE FOR APPT. I SAID I COULD DRAW. SHE SAT @ SIDEWAYS IN THE CHAIR AND WANTED HAND DRAWN I THINK. I @ ASKED HER TO TURN HER BODY AND LEGS TO BE IN FRONT SO I @ COULD LOOK AT OPTIONS AND DRAW. SHE INSTANTLY SAID GIVE ME @ MY ORDERS, AND LEFT. THAT QUICK. Performed By: #### L 500.2500, L100.0100, L3200.1100, L500.3400 #### [facility] [address] [place], [place], [phone] WBC Normal 4.4-11.0 [facility] Comment on above: Result Comment: @ PA TEINT UOSET AND WITH HOLDING SIMPLE THINGS WITH @REGISTRATION. ALINA HAS MANY NOTES. AFTER WORKING ON @ HER ORDER, MISC TESTS TOO. CALLED HER BACK. SHE WANTED @ TO LEAVE. LATE FOR APPT. I SAID I COULD DRAW. SHE SAT @ SIDEWAYS IN THE CHAIR AND WANTED HAND DRAWN I THINK. I @ ASKED HER TO TURN HER BODY AND LEGS TO BE IN FRONT SO I @ COULD LOOK AT OPTIONS AND DRAW. SHE INSTANTLY SAID GIVE ME @ MY ORDERS, AND LEFT. THAT QUICK. Performed By: #### L 500.2500, L100.0100, L3200.1100, L500.3400 #### [facility] [address] [place], [place], [phone] Immunoglobulins G/A/M/Mann IMMUNOGLOB A QN Normal [facility] Comment on above: Order Comment: N Result Comment: @ PA TEINT UOSET AND WITH HOLDING SIMPLE THINGS WITH @REGISTRATION. ALINA HAS MANY NOTES. AFTER WORKING ON @ HER ORDER, MISC TESTS TOO. CALLED HER BACK. SHE WANTED @ TO LEAVE. LATE FOR APPT. I SAID I COULD DRAW. SHE SAT @ SIDEWAYS IN THE CHAIR AND WANTED HAND DRAWN I THINK. I @ ASKED HER TO TURN HER BODY AND LEGS TO BE IN FRONT SO I @ COULD LOOK AT OPTIONS AND DRAW. SHE INSTANTLY SAID GIVE ME @ MY ORDERS, AND LEFT. THAT QUICK. Performed By: #### L 500.2500, L100.0100, L3200.1100, L500.3400 #### [facility] [address] [place], [address] IMMUNOGLOB E QN Normal [facility] Comment on above: Order Comment: N Result Comment: @ PA TEINT UOSET AND WITH HOLDING SIMPLE THINGS WITH @REGISTRATION. ALINA HAS MANY NOTES. AFTER WORKING ON @ HER ORDER, MISC TESTS TOO. CALLED HER BACK. SHE WANTED @ TO LEAVE. LATE FOR APPT. I SAID I COULD DRAW. SHE SAT @ SIDEWAYS IN THE CHAIR AND WANTED HAND DRAWN I THINK. I @ ASKED HER TO TURN HER BODY AND LEGS TO BE IN FRONT SO I @ COULD LOOK AT OPTIONS AND DRAW. SHE INSTANTLY SAID GIVE ME @ MY ORDERS, AND LEFT. THAT QUICK. Performed By: #### L 500.2500, L100.0100, L3200.1100, L500.3400 #### [facility] [address] [place], [address] IMMUNOGLOB G [facility] Comment on above: Order Comment: N Result Comment: @ PA TEINT UOSET AND WITH HOLDING SIMPLE THINGS WITH @REGISTRATION. ALINA HAS MANY NOTES. AFTER WORKING ON @ HER ORDER, MISC TESTS TOO. CALLED HER BACK. SHE WANTED @ TO LEAVE. LATE FOR APPT. I SAID I COULD DRAW. SHE SAT @ SIDEWAYS IN THE CHAIR AND WANTED HAND DRAWN I THINK. I @ ASKED HER TO TURN HER BODY AND LEGS TO BE IN FRONT SO I @ COULD LOOK AT OPTIONS AND DRAW. SHE INSTANTLY SAID GIVE ME @ MY ORDERS, AND LEFT. THAT QUICK. Performed By: #### L 500.2500, L100.0100, L3200.1100, L500.3400 #### [facility] [address] [place], [place], [phone] IMMUNOGLOB M [facility] Comment on above: Order Comment: N Result Comment: @ PA TEINT UOSET AND WITH HOLDING SIMPLE THINGS WITH @REGISTRATION. ALINA HAS MANY NOTES. AFTER WORKING ON @ HER ORDER, MISC TESTS TOO. CALLED HER BACK. SHE WANTED @ TO LEAVE. LATE FOR APPT. I SAID I COULD DRAW. SHE SAT @ SIDEWAYS IN THE CHAIR AND WANTED HAND DRAWN I THINK. I @ ASKED HER TO TURN HER BODY AND LEGS TO BE IN FRONT SO I @ COULD LOOK AT OPTIONS AND DRAW. SHE INSTANTLY SAID GIVE ME @ MY ORDERS, AND LEFT. THAT QUICK. Performed By: #### L 500.2500, L100.0100, L3200.1100, L500.3400 #### [facility] [address] [place], [address] Liver Profileon 09-04-2025 ALB Normal 3.4-4.8 [facility] Comment on above: Result Comment: @ PA TEINT UOSET AND WITH HOLDING SIMPLE THINGS WITH @REGISTRATION. ALINA HAS MANY NOTES. AFTER WORKING ON @ HER ORDER, MISC TESTS TOO. CALLED HER BACK. SHE WANTED @ TO LEAVE. LATE FOR APPT. I SAID I COULD DRAW. SHE SAT @ SIDEWAYS IN THE CHAIR AND WANTED HAND DRAWN I THINK. I @ ASKED HER TO TURN HER BODY AND LEGS TO BE IN FRONT SO I @ COULD LOOK AT OPTIONS AND DRAW. SHE INSTANTLY SAID GIVE ME @ MY ORDERS, AND LEFT. THAT QUICK. Performed By: #### L 500.2500, L100.0100, L3200.1100, L500.3400 #### [facility] [address] [place], [address] ALK PHOS Normal 35-104 [facility] Comment on above: Result Comment: @ PA TEINT UOSET AND WITH HOLDING SIMPLE THINGS WITH @REGISTRATION. ALINA HAS MANY NOTES. AFTER WORKING ON @ HER ORDER, MISC TESTS TOO. CALLED HER BACK. SHE WANTED @ TO LEAVE. LATE FOR APPT. I SAID I COULD DRAW. SHE SAT @ SIDEWAYS IN THE CHAIR AND WANTED HAND DRAWN I THINK. I @ ASKED HER TO TURN HER BODY AND LEGS TO BE IN FRONT SO I @ COULD LOOK AT OPTIONS AND DRAW. SHE INSTANTLY SAID GIVE ME @ MY ORDERS, AND LEFT. THAT QUICK. Performed By: #### L 500.2500, L100.0100, L3200.1100, L500.3400 #### [facility] [address] [place], [place], [phone] ALT Normal <=34 [facility] Comment on above: Result Comment: @ PA TEINT UOSET AND WITH HOLDING SIMPLE THINGS WITH @REGISTRATION. ALINA HAS MANY NOTES. AFTER WORKING ON @ HER ORDER, MISC TESTS TOO. CALLED HER BACK. SHE WANTED @ TO LEAVE. LATE FOR APPT. I SAID I COULD DRAW. SHE SAT @ SIDEWAYS IN THE CHAIR AND WANTED HAND DRAWN I THINK. I @ ASKED HER TO TURN HER BODY AND LEGS TO BE IN FRONT SO I @ COULD LOOK AT OPTIONS AND DRAW. SHE INSTANTLY SAID GIVE ME @ MY ORDERS, AND LEFT. THAT QUICK. Performed By: #### L 500.2500, L100.0100, L3200.1100, L500.3400 #### [facility] [address] [place], [place], [phone] ([phone]) AST Normal <=31 [facility] Comment on above: Result Comment: @ PA TEINT UOSET AND WITH HOLDING SIMPLE THINGS WITH @REGISTRATION. ALINA HAS MANY NOTES. AFTER WORKING ON @ HER ORDER, MISC TESTS TOO. CALLED HER BACK. SHE WANTED @ TO LEAVE. LATE FOR APPT. I SAID I COULD DRAW. SHE SAT @ SIDEWAYS IN THE CHAIR AND WANTED HAND DRAWN I THINK. I @ ASKED HER TO TURN HER BODY AND LEGS TO BE IN FRONT SO I @ COULD LOOK AT OPTIONS AND DRAW. SHE INSTANTLY SAID GIVE ME @ MY ORDERS, AND LEFT. THAT QUICK. Performed By: #### L 500.2500, L100.0100, L3200.1100, L500.3400 #### [facility] [address] [place], [address] [phone] D BILI Normal 0.00-0.30 [facility] Comment on above: Result Comment: @ PA TEINT UOSET AND WITH HOLDING SIMPLE THINGS WITH @REGISTRATION. ALINA HAS MANY NOTES. AFTER WORKING ON @ HER ORDER, MISC TESTS TOO. CALLED HER BACK. SHE WANTED @ TO LEAVE. LATE FOR APPT. I SAID I COULD DRAW. SHE SAT @ SIDEWAYS IN THE CHAIR AND WANTED HAND DRAWN I THINK. I @ ASKED HER TO TURN HER BODY AND LEGS TO BE IN FRONT SO I @ COULD LOOK AT OPTIONS AND DRAW. SHE INSTANTLY SAID GIVE ME @ MY ORDERS, AND LEFT. THAT QUICK. Performed By: #### L 500.2500, L100.0100, L3200.1100, L500.3400 #### [facility] [address] [place], [address] ([phone] T BILI Normal 0.00-1.30 [facility] Comment on above: Result Comment: @ PA TEINT UOSET AND WITH HOLDING SIMPLE THINGS WITH @REGISTRATION. ALINA HAS MANY NOTES. AFTER WORKING ON @ HER ORDER, MISC TESTS TOO. CALLED HER BACK. SHE WANTED @ TO LEAVE. LATE FOR APPT. I SAID I COULD DRAW. SHE SAT @ SIDEWAYS IN THE CHAIR AND WANTED HAND DRAWN I THINK. I @ ASKED HER TO TURN HER BODY AND LEGS TO BE IN FRONT SO I @ COULD LOOK AT OPTIONS AND DRAW. SHE INSTANTLY SAID GIVE ME @ MY ORDERS, AND LEFT. THAT QUICK. Performed By: #### L 500.2500, L100.0100, L3200.1100, L500.3400 #### [facility] [address] [place], [place], [phone] T PROT Normal 5.9-8.4 [facility] Comment on above: Result Comment: @ PA TEINT UOSET AND WITH HOLDING SIMPLE THINGS WITH @REGISTRATION. ALINA HAS MANY NOTES. AFTER WORKING ON @ HER ORDER, [facility] TESTS TOO. CALLED HER BACK. SHE WANTED @ TO LEAVE. LATE FOR APPT. I SAID I COULD DRAW. SHE SAT @ SIDEWAYS IN THE CHAIR AND WANTED HAND DRAWN I THINK. I @ ASKED HER TO TURN HER BODY AND LEGS TO BE IN FRONT SO I @ COULD LOOK AT OPTIONS AND DRAW. SHE INSTANTLY SAID GIVE ME @ MY ORDERS, AND LEFT. THAT QUICK. Performed By: #### L 500.2500, L100.0100, L3200.1100, L500.3400 #### [facility] [address] [place], [place], [phone] XR HIP RIGHT WITH PELVIS WHE N PERFORMED 2 OR 3 VIEWSon 08-29-2025 XR HIP RIGHT WITH PELVIS WHEN PERFORMED 2 OR 3 VIEWS Interpreted By: Judith Cooley, STUDY: XR HIP RIGHT WITH PELVIS WHEN PERFORMED 2 OR 3 VIEWS INDICATION: Signs/Symptoms:HIP PAIN COMPARISON: XR HIP RIGHT WITH PELVIS WHEN PERFORMED 2 OR 3 VIEWS 10/19/2024. ACCESSION NUMBER(S): [id number] ORDERING CLINICIAN: NORMAN DURON FINDINGS: No acute fracture or malalignment. Patient is status post right total hip arthroplasty. No perihardware fractures or lucencies. Alignment is anatomic. Right hip joint space is well maintained. IMPRESSION: 1. Right total hip arthroplasty without hardware complication. MACRO: None. Signed by: Judith Cooley 08/30/2025 7:26 PM Dictation workstation: [id number] [facility] 2025 CNPN Telephone (OPHTSK) -- ANCA HSU ([id number]) 1960 F Date Time Provider Department 08/24/25 JEMMA MCKEE OPHJULIANK During your visit today, we recorded the following information about you: Herbert Cook 2025 10:48 AM Addendum Requested prior authorization for cyclosporine 0.05% via phone call to [employer]. Reference # [id number] Per rep, turn around time is 24 hours. Herbert Cook 2025 10:46 AM Allergies As of Date: 2025 Noted Allergy Reaction DEMORAL (MEPERIDINE) 10/01/2015 10 - Anaphylaxis PINE NUT 11/01/1969 2 - Rash 4 - Hives 9 - Itching 12 - Shortness of Breath BUPIVACAINE HCL 07/18/2020 10 - Anaphylaxis ADHESIVE TAPE (ROSINS) 10/01/2015 2 - Rash Comments: Rash and blisters, Surgical glue as well BLUE DYE 07/01/2022 4 - Hives Comments: Ultrasound gel CARAFATE (SUCRALFATE) 07/01/2022 14 - Other: See Comments Comments: Oral skin sloughing CHLORHEXIDINE 07/01/2022 14 - Other: See Comments Comments: Petechiae, blisters LATEX 06/24/2022 14 - Other: See Comments Comments: Patient is allergic to the powder in latex gloves; develops blisters LIDOCAINE 08/03/2023 10 - Anaphylaxis MARCAINE (BUPIVACAINE) 07/01/2022 10 - Anaphylaxis MOXIFLOXACIN 06/18/2023 7 - Swelling Comments: Eye drop form, eye, tongue and lips swelling NOVACAINE (PROCAINE) 07/01/2022 10 - Anaphylaxis SULFA (SULFONAMIDE ANTIBIOTICS) 07/01/2022 2 - Rash TREE NUTS 07/03/2022 10 - Anaphylaxis Comments: Walnuts WALNUT 07/10/2022 10 - Anaphylaxis Date Reviewed: 06/15/2025 Reviewed by: Matilda Green LPN - Fully Assessed Reason for Visit: Insurance Authorization [[id number]] Cmt: Restasis/Cyclosporine Prescriptions as of 2025 - cycloSPORINE (RESTASIS) 0.05 % ophthalmic emulsion Use 1 drop in both eyes two times a day. - Olopatadine (PATADAY ONCE DAILY RELIEF) 0.2 % drop Use 1 drop in both eyes once daily. - baclofen 10 mg diazePAM 10 mg lidocaine 2% vaginal suppository (CPD) Use 1 Suppository vaginally daily at bedtime. - cyanocobalamin, vitamin B-12, (VITAMIN B-12 ORAL) Take by mouth. - busPIRone (BUSPAR) 5 mg tablet Take 1 tablet (5 mg) by mouth 2 times daily for 60 doses. - hydrOXYchloroQUINE (PLAQUENIL) 200 mg tablet 200 mg at night, 100 mg in the morning - CALCIUM CARBONATE ORAL Take 1,200 mg by mouth once daily. - nortriptyline (PAMELOR) 10 mg capsule - cetirizine (ZYRTEC) 10 mg tablet Take 10 mg by mouth once daily. - mometasone (ELOCON) 0.1 % ointment APPLY TO AFFECTED AREA TOPICALLY EVERY DAY - hydrocortisone (ANUSOL-HC) 25 mg suppository 25 mg by RECTAL route as needed. - COLLAGEN MISC 6,000 mg two times a day. - folic acid 800 mcg tablet Take 800 mcg by mouth two times a week. Takes twice per day - BIOTIN ORAL Take 1 tablet by mouth once daily. Pt states she takes 5000mg - Multivitamin capsule Take 1 capsule by mouth once daily. - Ascorbic Acid 1,000 mg tablet Take 1,000 mg by mouth twice daily. - Alpha Lipoic Acid 600 mg cap Take 600 mg by mouth twice daily. - cloNIDine HCl (CATAPRES) 0.1 mg tablet Take 0.1 mg by mouth daily at bedtime. - gabapentin (NEURONTIN) 300 mg capsule Take 300 mg by mouth three times a day. - ondansetron (ZOFRAN) 8 mg tablet Take 8 mg by mouth every 8 hours as needed. - SUMAtriptan (IMITREX) 100 mg tablet One stat and repeat in 2 hours , no more than 4 per week Meds Comments as of 06/16/2023: She is using Preservative Free Artificial tears . Problem List As Of Date 2025 Noted Resolved Plantar fascial fibromatosis [M72.2] 12/26/2021 Calcaneal spur of right foot [M77.31] 12/26/2021 Migraine [G43.909] 05/21/2023 Combined forms of age-related cataract of both *06/11/2023 06/11/2023 Reflex sympathetic dystrophy of right leg [G90.*01/25/2024 Preop examination [Z01.818] 04/09/2025 Arthritis of carpometacarpal (CMC) joint of rig*04/09/2025 Carpal tunnel syndrome on right [G56.01] 04/09/2025 Positive RADHA (antinuclear antibody) [R76.89] 04/09/2025 Encounter Status:Closed by HERBERT COOK on 08/24/25 Normal [facility] CULTURE, URINE, ROUTINEon Bacteria identified Cx Nom (U) SEE NOTE Abnormal [facility] Comment on above: Result Comment: CULTURE, URINE, ROUTINE Micro Number: [id number] Test Status: Final Specimen Source: Urine Specimen Quality: Adequate Result: Greater than 100,000 CFU/mL of Escherichia coli E.coli INT ASHLEY AMOX/CLAVULANATE S <=2 AMP/SULBACTAM S <=2 CEFAZOLIN NR <=1 2 CEFEPIME S <=0.12 CEFTAZIDIME S <=0.5 CEFTRIAXONE S <=0.25 CIPROFLOXACIN S <=0.06 GENTAMICIN S <=1 IMIPENEM S <=0.25 LEVOFLOXACIN S <=0.12 MEROPENEM S <=0.25 NITROFURANTOIN S 32 PIP/TAZOBACTAM S <=4 TRIMETHOPRIM/SULFA S <=20 S = Susceptible I = Intermediate R = Resistant NS = Not susceptible SDD = Susceptible Dose Dependent * = Not Tested NR = Not Reported NN = See Therapy Comments THERAPY COMMENTS Note 1: For infections other than uncomplicated UTI caused by E. coli, K. pneumoniae or P. mirabilis: Cefazolin is resistant if ASHLEY > or = 8 mcg/mL. (Distinguishing susceptible versus intermediate for isolates with ASHLEY < or = 4 mcg/mL requires additional testing.) Note 2: For uncomplicated UTI caused by E. coli, K. pneumoniae or P. mirabilis: Cefazolin is susceptible if ASHLEY <32 mcg/mL and predicts susceptible to the oral agents cefaclor, cefdinir, cefpodoxime, cefprozil, cefuroxime, cephalexin and loracarbef. Performed By: #### 3 95, 7909 #### [facility] [place] [address] Assistant Superintendent For Curriculum: Tyler Mcrae MD NOTEon 08-20-2025 NOTE Normal [facility] Comment on above: Result Comment: This urine was analyzed for the presence of WBC, RBC, bacteria, casts, and other formed elements. Only those elements seen were reported. Performed By: #### 3 95, 7909 #### [facility] [place] [address] Assistant Superintendent For Curriculum: Tyler Mcrae MD URINALYSIS REFLEXon 08-20-20 25 Appearance (U) CLEAR Normal CLEAR [facility] Comment on above: Performed By: #### 3 95, 7909 #### [facility] [place] [address] Assistant Superintendent For Cur[employer]: Tyler Mcrae MD BACTERIA MODERATE Abnormal NONE SEEN [facility] Comment on above: Performed By: #### 3 95, 7909 #### [facility] [place] [address] Assistant Superintendent For Cur[employer]: Tyler Mcrae MD Bilirubin Ql (U) Negative Normal NEGATIVE [facility] Comment on above: Performed By: #### 3 95, 7909 #### [facility] [place] [address] Assistant Superintendent For Cur[employer]: Tyler Mcrae MD Color (U) YELLOW Normal YELLOW [facility] Comment on above: Performed By: #### 3 95, 7909 #### [facility] [place] [address] Assistant Superintendent For Cur[employer]: Tyler Mcrae MD Glucose Ql (U) Negative Normal NEGATIVE [facility] Comment on above: Performed By: #### 3 95, 7909 #### [facility] of [place] [address] Assistant Superintendent For Curriculum: Tyler Mcrae MD HYALINE CAST 0-5 Abnormal NONE SEEN [facility] Comment on above: Performed By: #### 3 95, 7909 #### [facility] of [place] [address] Assistant Superintendent For Curriculum: Tyler Mcrae MD Ketones Ql (U) Negative Normal NEGATIVE [facility] Comment on above: Performed By: #### 3 95, 7909 #### [facility] [place] [address] Assistant Superintendent For Cur[employer]ulum: Tyler Mcrae MD Leukocyte esterase Test strip Ql (U) TRACE Abnormal NEGATIVE [facility] Comment on above: Performed By: #### 3 95, 7909 #### [facility] of [place] [address] Assistant Superintendent For Curriculum: Tyler Mcrae MD Nitrite Ql (U) Positive Abnormal NEGATIVE [facility] Comment on above: Performed By: #### 3 95, 7909 #### [facility] [place] [address] Assistant Superintendent For Curriculum: Tyler Mcrae MD OCCULT BLOOD Negative Normal NEGATIVE [facility] Comment on above: Performed By: #### 3 95, 7909 #### [facility] of [place] [address] Assistant Superintendent For Curriculum: Tyler Mcrae MD pH (U) 7.0 [pH] Normal 5.0-8.0 [facility] Comment on above: Performed By: #### 3 95, 7909 #### [facility] of [place] [address] Assistant Superintendent For Curriculum: Tyler Mcrae MD Protein Ql (U) Negative Normal NEGATIVE [facility] Comment on above: Performed By: #### 3 95, 7909 #### [facility] of [address] [place] [address] Assistant Superintendent For Curriculum: Tyler Mcrae MD RBC NONE SEEN Normal < OR = 2 [facility] Comment on above: Performed By: #### 3 95, 7909 #### [facility] of [place] [address] Assistant Superintendent For Curriculum: Tyler Mcrae MD Specific gravity (U) [Rel density] 1.012 Normal 1.001-1.035 [facility] Comment on above: Performed By: #### 3 95, 7909 #### [facility] of [place] [address] Assistant Superintendent For Curriculum: Tyler Mcrae MD SQUAMOUS EPITHELIAL CELLS 0-5 Normal < OR = 5 [facility] Comment on above: Performed By: #### 3 95, 7909 #### [facility] [place] [address] Assistant Superintendent For Cur[employer]: Tyler Mcrae MD WBC 0-5 Normal < OR = 5 [facility] Comment on above: Performed By: #### 3 95, 7909 #### [facility] of [place] [address] Assistant Superintendent For Curriculum: Tyler Mcrae MD CULTURE, URINE, ROUTINEon Bacteria identified Cx Nom (U) SEE NOTE Abnormal [facility] Comment on above: Result Comment: CULTURE, URINE, ROUTINE Micro Number: [id number] Test Status: Final Specimen Source: Urine, clean catch Specimen Quality: Adequate Result: Greater than 100,000 CFU/mL of Escherichia coli E.coli INT ASHLEY AMOX/CLAVULANATE S 4 AMP/SULBACTAM S <=2 CEFAZOLIN NR <=1 2 CEFEPIME S <=0.12 CEFTAZIDIME S <=0.5 CEFTRIAXONE S <=0.25 CIPROFLOXACIN S <=0.06 GENTAMICIN S <=1 IMIPENEM S <=0.25 LEVOFLOXACIN S <=0.12 MEROPENEM S <=0.25 NITROFURANTOIN S <=16 PIP/TAZOBACTAM S <=4 TRIMETHOPRIM/SULFA S <=20 S = Susceptible I = Intermediate R = Resistant NS = Not susceptible SDD = Susceptible Dose Dependent * = Not Tested NR = Not Reported NN = See Therapy Comments THERAPY COMMENTS Note 1: For infections other than uncomplicated UTI caused by E. coli, K. pneumoniae or P. mirabilis: Cefazolin is resistant if ASHLEY > or = 8 mcg/mL. (Distinguishing susceptible versus intermediate for isolates with ASHLEY < or = 4 mcg/mL requires additional testing.) Note 2: For uncomplicated UTI caused by E. coli, K. pneumoniae or P. mirabilis: Cefazolin is susceptible if ASHLEY <32 mcg/mL and predicts susceptible to the oral agents cefaclor, cefdinir, cefpodoxime, cefprozil, cefuroxime, cephalexin and loracarbef. Performed By: #### 3 95, 7909 #### [facility] [place] [address] Assistant Superintendent For Curriculum: Tyler Mcrae MD NOTEon 07-29-2025 NOTE Normal [facility] Comment on above: Result Comment: This urine was analyzed for the presence of WBC, RBC, bacteria, casts, and other formed elements. Only those elements seen were reported. Performed By: #### 3 95, 7909 #### [facility] [place] [address] Assistant Superintendent For Cur[employer]ulum: Tyler Mcrae MD URINALYSIS REFLEXon 07-29-20 25 Appearance (U) CLOUDY Abnormal CLEAR [facility] Comment on above: Performed By: #### 3 95, 7909 #### [facility] [place] [address] Assistant Superintendent For Cur[employer]: Tyler Mcrae MD BACTERIA MANY Abnormal NONE SEEN [facility] Comment on above: Performed By: #### 3 95, 7909 #### [facility] [place] [address] Assistant Superintendent For Cur[employer]ulum: Tyler Mcrae MD Bilirubin Ql (U) Negative Normal NEGATIVE [facility] Comment on above: Performed By: #### 3 95, 7909 #### [facility] [address] Assistant Superintendent For Curriculum: Tyler Mcrae MD Color (U) YELLOW Normal YELLOW [facility] Comment on above: Performed By: #### 3 95, 7909 #### [facility] of [place] [address] Assistant Superintendent For Curriculum: Tyler Mcrae MD Glucose Ql (U) Negative Normal NEGATIVE [facility] Comment on above: Performed By: #### 3 95, 7909 #### [facility] of [place] [address] Assistant Superintendent For Curriculum: Tyler Mcrae MD HYALINE CAST 0-5 Abnormal NONE SEEN [facility] Comment on above: Performed By: #### 3 95, 7909 #### [facility] [place] [address] Assistant Superintendent For Cur[employer]ulum: Tyler Mcrae MD Ketones Ql (U) Negative Normal NEGATIVE [facility] Comment on above: Performed By: #### 3 95, 7909 #### [facility] of [place] [address] Assistant Superintendent For Curriculum: Tyler Mcrae MD Leukocyte esterase Test strip Ql (U) 3+ Abnormal NEGATIVE [facility] Comment on above: Performed By: #### 3 95, 7909 #### [facility] [place] [address] Assistant Superintendent For Curriculum: Tyler Mcrae MD Nitrite Ql (U) Negative Normal NEGATIVE [facility] Comment on above: Performed By: #### 3 95, 7909 #### [facility] of [place] [address] Assistant Superintendent For Cur[employer]ulum: Tyler Mcrae MD OCCULT BLOOD Negative Normal NEGATIVE [facility] Comment on above: Performed By: #### 3 95, 7909 #### [facility] of [place] [address] Assistant Superintendent For Curriculum: Tyler Mcrae MD pH (U) 7.5 [pH] Normal 5.0-8.0 [facility] Comment on above: Performed By: #### 3 95, 7909 #### [facility] of [place] [address] Assistant Superintendent For Curriculum: Tyler Mcrae MD Protein Ql (U) 1+ Abnormal NEGATIVE [facility] Comment on above: Performed By: #### 3 95, 7909 #### [facility] of [place] [address] Assistant Superintendent For Curriculum: Tyler Mcrae MD RBC 0-2 Normal < OR = 2 [facility] Comment on above: Performed By: #### 3 95, 7909 #### [facility] of [place] [address] Assistant Superintendent For Curriculum: Tyler Mcrae MD Specific gravity (U) [Rel density] 1.016 Normal 1.001-1.035 [facility] Comment on above: Performed By: #### 3 95, 7909 #### [facility] of [place] [address] Assistant Superintendent For Curriculum: Tyler Mcrae MD SQUAMOUS EPITHELIAL CELLS 0-5 Normal < OR = 5 [facility] Comment on above: Performed By: #### 3 95, 7909 #### [facility] of [place] [address] Assistant Superintendent For Curriculum: Tyler Mcrae MD TRIPLE PHOSPHATE CRYSTALS MANY Abnormal NONE OR FEW [facility] Comment on above: Performed By: #### 3 95, 7909 #### [facility] of [place] [address] Assistant Superintendent For Curriculum: Tyler Mcrae MD WBC (U) [#/Vol] /uL Abnormal < OR = 5 [facility] Comment on above: Performed By: #### 3 95, 7909 #### [facility] of [place] [address] Assistant Superintendent For Curriculum: Tyler Mcrae MD CULTURE, URINE, ROUTINEon CULTURE, URINE, ROUTINE SEE NOTE Abnormal [facility] Comment on above: Result Comment: CULTURE, URINE, ROUTINE Micro Number: [id number] Test Status: Final Specimen Source: Not given Specimen Quality: Adequate Result: Greater than 100,000 CFU/mL of Escherichia coli E.coli INT ASHLEY AMOX/CLAVULANATE S 4 AMP/SULBACTAM S 4 CEFAZOLIN NR <=1 2 CEFEPIME S <=0.12 CEFTAZIDIME S <=0.5 CEFTRIAXONE S <=0.25 CIPROFLOXACIN S <=0.06 GENTAMICIN S <=1 IMIPENEM S <=0.25 LEVOFLOXACIN S <=0.12 MEROPENEM S <=0.25 NITROFURANTOIN S <=16 PIP/TAZOBACTAM S <=4 TRIMETHOPRIM/SULFA S <=20 S = Susceptible I = Intermediate R = Resistant NS = Not susceptible SDD = Susceptible Dose Dependent * = Not Tested NR = Not Reported NN = See Therapy Comments THERAPY COMMENTS Note 1: For infections other than uncomplicated UTI caused by E. coli, K. pneumoniae or P. mirabilis: Cefazolin is resistant if ASHLEY > or = 8 mcg/mL. (Distinguishing susceptible versus intermediate for isolates with ASHLEY < or = 4 mcg/mL requires additional testing.) Note 2: For uncomplicated UTI caused by E. coli, K. pneumoniae or P. mirabilis: Cefazolin is susceptible if ASHLEY <32 mcg/mL and predicts susceptible to the oral agents cefaclor, cefdinir, cefpodoxime, cefprozil, cefuroxime, cephalexin and loracarbef. Performed By: #### 3 05, 7935 #### [facility] [place] [address] Assistant Superintendent For Curriculum: Tyler Mcrae MD C-REACTIVE PROTEINon 025 CRP [Mass/Vol] mg/L Normal <8.0 [facility] Comment on above: Performed By: #### 9 0741, 399, 6006 #### [facility] [address] Assistant Superintendent For Curriculum: Tyler Mcrae MD CBC (INCLUDES DIFF/PLT)on Basophils (Bld) [#/Vol] 0.049 10*3/uL Normal 0-200 [facility] Comment on above: Performed By: #### 9 4624, 809, 6399 #### [facility] of [address], [address] [place] [address] Assistant Superintendent For Curriculum: Tyler Mcrae MD Basophils/100 WBC (Bld) 0.9 % Normal [facility] Comment on above: Performed By: #### 9 2665, 809, 6399 #### [facility] of [address], [address] [place] [address] Assistant Superintendent For Curriculum: Tyler Mcrae MD Eosinophils (Bld) [#/Vol] 0.103 10*3/uL Normal 15-500 [facility] Comment on above: Performed By: #### 9 2665, 809, 6399 #### [facility] of [address], [address] [place] [address] Assistant Superintendent For Curriculum: Tyler Mcrae MD Eosinophils/100 WBC (Bld) 1.9 % Normal [facility] Comment on above: Performed By: #### 9 2665, 809, 6399 #### [facility] of [place] [address] Assistant Superintendent For Curriculum: Tyler Mcrae MD Erythrocyte distribution width (RBC) [Ratio] 12.1 % Normal 11.0-15.0 [facility] Comment on above: Performed By: #### 9 0365, 809, 6399 #### [facility] of [place] [address] Assistant Superintendent For Curriculum: Tyler Mcrae MD Hematocrit (Bld) [Volume fraction] 34.8 % Low 35.0-45.0 [facility] Comment on above: Performed By: #### 9 2665, 809, 6399 #### [facility] of [place] [address] Assistant Superintendent For Curriculum: Tyler Mcrae MD Hemoglobin (Bld) [Mass/Vol] 11.6 g/dL Low 11.7-15.5 [facility] Comment on above: Performed By: #### 9 5945, 809, 6399 #### [facility] of [address] [place] [address] Assistant Superintendent For Curriculum: Tyler Mcrae MD Lymphocytes (Bld) [#/Vol] 1.723 10*3/uL Normal 850-3900 [facility] Comment on above: Performed By: #### 9 323, 809, 6399 #### [facility] [address], [address] [place] [address] Assistant Superintendent For Curriculum: Tyler Mcrae MD Lymphocytes/100 WBC (Bld) 31.9 % Normal [facility] Comment on above: Performed By: #### 9 164, 809, 6399 #### [facility] [place] [address] Assistant Superintendent For Curriculum: Tyler Mcrae MD MCH (RBC) [Entitic mass] 31.7 pg Normal 27.0-33.0 [facility] Comment on above: Performed By: #### 9 271, 809, 6399 #### [facility] [place] [address] Assistant Superintendent For Curriculum: Tyler Mcrae MD MCHC (RBC) [Mass/Vol] 33.3 g/dL Normal 32.0-36.0 [facility] Comment on above: Result Comment: For adults, a slight decrease in the calculated MCHC value (in the range of 30 to 32 g/dL) is most likely not clinically significant; however, it should be interpreted with caution in correlation with other red cell parameters and the patient's clinical condition. Performed By: #### 9 9385, 809, 6399 #### [facility] [place] [address] Assistant Superintendent For Curriculum: Tyler Mcrae MD MCV (RBC) [Entitic vol] 95.1 fL Normal 80.0-100.0 [facility] Comment on above: Performed By: #### 9 881, 809, 6399 #### [facility] [place] [address] Assistant Superintendent For Curriculum: Tyler Mcrae MD Monocytes (Bld) [#/Vol] 0.551 10*3/uL Normal 200-950 [facility] Comment on above: Performed By: #### 9 2665, 809, 6399 #### [facility] of [place] [address] Assistant Superintendent For Curriculum: Tyler Mcrae MD Monocytes/100 WBC (Bld) 10.2 % Normal [facility] Comment on above: Performed By: #### 9 5, 809, 6399 #### [facility] of [place] [address] Assistant Superintendent For Curriculum: Tyler Mcrae MD Neutrophils (Bld) [#/Vol] 2.975 10*3/uL Normal 1911-0843 [facility] Comment on above: Performed By: #### 9 2665, 809, 6399 #### [facility] of [place] [address] Assistant Superintendent For Curriculum: Tyler Mcrae MD Neutrophils/100 WBC (Bld) 55.1 % Normal [facility] Comment on above: Performed By: #### 9 2665, 809, 6399 #### [facility] [place] [address] Assistant Superintendent For Curriculum: Tyler Mcrae MD Platelet mean volume (Bld) [Entitic vol] 9.8 fL Normal 7.5-12.5 [facility] Comment on above: Performed By: #### 9 2665, 809, 6399 #### [facility] of [place] [address] Assistant Superintendent For Curriculum: Tyler Mcrae MD Platelets (Bld) [#/Vol] 288 10*3/uL Normal 140-400 [facility] Comment on above: Performed By: #### 9 2665, 809, 6399 #### [facility] of [place] [address] Assistant Superintendent For Curriculum: Tyler Mcrae MD RBC (Bld) [#/Vol] 3.66 10*6/uL Low 3.80-5.10 [facility] Comment on above: Performed By: #### 9 2665, 809, 6399 #### [facility] [place] [address] Assistant Superintendent For Curriculum: Tyler Mcrae MD WBC (Bld) [#/Vol] 5.4 10*3/uL Normal 3.8-10.8 [facility] Comment on above: Performed By: #### 9 2665, 809, 6399 #### [facility] of [place] [address] Assistant Superintendent For Curriculum: Tyler Mcrae MD COMPREHENSIVE METABOLIC PANE L W/ANION GAPon 07-03-2025 Albumin [Mass/Vol] 4.5 g/dL Normal 3.6-5.1 [facility] Comment on above: Performed By: #### 9 2665, 809, 6399 #### [facility] of [place] [address] Assistant Superintendent For Curriculum: Tyler Mcrae MD ALP [Catalytic activity/Vol] 67 U/L Normal 37-153 [facility] Comment on above: Performed By: #### 9 2665, 809, 6399 #### [facility] [place] [address] Assistant Superintendent For Curriculum: Tyler Mcrae MD ALT [Catalytic activity/Vol] 38 U/L High 6-29 [facility] Comment on above: Performed By: #### 9 2665, 809, 6399 #### [facility] [place] [address] Assistant Superintendent For Curriculum: Tyler Mcrae MD AST [Catalytic activity/Vol] 37 U/L High 10-35 [facility] Comment on above: Performed By: #### 9 2665, 809, 6399 #### [facility] [place] [address] Assistant Superintendent For Curriculum: Tyler Mcrae MD Bilirubin [Mass/Vol] 0.3 mg/dL Normal 0.2-1.2 [facility] Comment on above: Performed By: #### 9 2665, 809, 6399 #### [facility] of [address], [address] [place] [address] Assistant Superintendent For Curriculum: Tyler Mcrae MD Calcium [Mass/Vol] 9.1 mg/dL Normal 8.6-10.4 [facility] Comment on above: Performed By: #### 9 222, 809, 6399 #### [facility] of [address], [address] [place] [address] Assistant Superintendent For Curriculum: Tyler Mcrae MD Chloride [Moles/Vol] 108 mmol/L Normal 98-110 [facility] Comment on above: Performed By: #### 9 2664, 809, 6399 #### [facility] [place] [address] Assistant Superintendent For Curriculum: Tyler Mcrae MD CO2 [Moles/Vol] 24 mmol/L Normal 20-32 [facility] Comment on above: Performed By: #### 9 515, 809, 6399 #### [facility] [place] [address] Assistant Superintendent For Curriculum: Tyler Mcrae MD Creatinine [Mass/Vol] 0.51 mg/dL Normal 0.50-1.05 [facility] Comment on above: Performed By: #### 9 472, 809, 6399 #### [facility] of [place] [address] Assistant Superintendent For Curriculum: Tyler Mcrae MD ELECTROLYTE BALANCE 12 mmol/L (calc) Normal 7-17 [facility] Comment on above: Performed By: #### 9 763, 809, 6399 #### [facility] of [place] [address] Assistant Superintendent For Curriculum: Tyler Mcrae MD GFR/1.73 sq M.predicted among non-blacks MDRD (S/P/Bld) [Vol rate/Area] 105 mL/min/{1.73_m2} Normal > OR = 60 [facility] Comment on above: Performed By: #### 9 [id number], 809, [id number] #### [facility] of [address] [place] [address] Assistant Superintendent For Curriculum: Tyler Mcrae MD Glucose [Mass/Vol] 75 mg/dL Normal 65-99 [facility] Comment on above: Result Comment: Fasting reference interval Performed By: #### 9 [id number], 809, [id number] #### [facility] of [address], [address] [place] [address] Assistant Superintendent For Curriculum: Tyler Mcrae MD Potassium [Moles/Vol] 4.0 mmol/L Normal 3.5-5.3 [facility] Comment on above: Performed By: #### 9 6225, 809, [id number] #### [facility] of [address], [address] [place] [address] Assistant Superintendent For Curriculum: Tyler Mcrae MD Protein [Mass/Vol] 6.5 g/dL Normal 6.1-8.1 [facility] Comment on above: Performed By: #### 9 3455, 809, [id number] #### [facility] of [address], [address] [place] [address] Assistant Superintendent For Curriculum: Tyler Mcrae MD Sodium [Moles/Vol] 144 mmol/L Normal 135-146 [facility] Comment on above: Performed By: #### 9 6135, 809, [id number] #### [facility] of [address], [address] [place] [address] Assistant Superintendent For Curriculum: Tyler Mcrae MD Urea nitrogen [Mass/Vol] 12 mg/dL Normal 7-25 [facility] Comment on above: Performed By: #### 9 [id number], 809, [id number] #### [facility] of [address], [address] [place] [address] Assistant Superintendent For Curriculum: Tyler Mcrae MD SED RATE BY ADRIANA Sharp 07-03-2025 SED RATE BY ADRIANA HELMS 2 mm/h Normal < OR = 30 [facility] Comment on above: Performed By: #### 9 [id number], 809, [id number] #### [facility] of [address], [address] [place] [address] Assistant Superintendent For Curriculum: Tyler Mcrae MD [place] GI ESOPHAGRAMon [place] GI ESOPHAGRAM Interpreted By: Christo Castaneda, and Marco Solorzano STUDY: [place] MODIFIED BARIUM SWALLOW STUDY; [place] GI ESOPHAGRAM;; 06/22/2025 9:15 am INDICATION: Signs/Symptoms:see dx. ,R13.10 Dysphagia, unspecified,K59.00 Constipation, unspecified,R10.13 Epigastric pain,M62.89 Other specified disorders of muscle COMPARISON: None. ACCESSION NUMBER(S): [id number]; [id number] ORDERING CLINICIAN: GABINO LUIS TECHNIQUE: Modified Barium Swallow Study completed. Informed verbal consent obtained prior to completion of exam. The study was completed per protocol with various liquid barium consistencies, pudding, solids and a 13mm barium tablet. Deviations from the MBS administration protocol were made as needed due to pt condition: pt declined 40ml thin liquid trial and took a cup sip instead. A 1.9 cm or .75 inch (outer diameter) ring was placed on the chin in the lateral view and on the lateral, left side of the neck in the a-p view in order to complete objective measurements during swallowing. The anatomic structures and function of the oropharynx, larynx, hypopharynx and cervical esophagus were evaluated. COMMUNITY INTEGRATION SPECIALIST: Jeanine Lara [facility]-COMMUNITY INTEGRATION SPECIALIST Contact info: Available via secure [employer] SPEECH FINDINGS: Reason for Referral: Pt reports that she has had dysphagia for about 10 years and that she has a history of a diverticulum (approximate level of diverticulum unknown). Pt also has a hx of gastric bypass many years ago. Pt reports that she has had sensation of pills getting stuck in the diverticulum lately, which prompted her provider to order MBS and esophagram for updated imaging. Pt eats small portions consistent with gastric bypass diet. Pt denies significant dysphagia to liquids or solids, but does report occasional coughing with PO intake. Patient Hx: anxiety, depression, complex regional pain syndrome, endometriosis, panic attack, fibromyalgia, arthritis, sinusitis, kidney disease, PTSD, tonsillectomy/adenoidectom y, pelvic floor myalgia Respiratory Status: Room air Current diet: Regular/thin Pain: Pain Scale: 0-10 Rating: did not rate FINAL SPEECH RECOMMENDATIONS DIET: - Regular (IDDSI Level 7) - Thin liquids (IDDSI Level 0) - Medications whole in liquid or puree STRATEGIES: - Upright positioning for all PO intake - Slow rate of intake - Chew food thoroughly prior to swallowing COMMUNITY INTEGRATION SPECIALIST PLAN: Skilled COMMUNITY INTEGRATION SPECIALIST Services: No further skilled COMMUNITY INTEGRATION SPECIALIST intervention is warranted for dysphagia at this time. Education Provided: No Treatment Provided Today: No Additional Medical Consults Suggested: None at this time; defer to esophagram report for any further recommendations Repeat study/ dc plan: No repeat recommended at this time; repeat MBSS as needed if symptoms of oropharyngeal dysphagia worsen. Mechanics of the Swallow Summary: ORAL PHASE: Lip Closure - No labial escape/anterior loss of bolus Tongue Control During Bolus Hold - Cohesive bolus between tongue to palatal seal Bolus prep/mastication - Timely and efficient mastication skills Bolus transport/lingual motion - Slowed Tongue Motion for A-P movement of the bolus Oral residue - Majority of bolus remaining PHARYNGEAL PHASE: Initiation of pharyngeal swallow - Bolus head at vallecular pit Soft palate elevation - No bolus between soft palate/pharyngeal wall Laryngeal elevation - Complete superior movement of thyroid cartilage with contact of arytenoids to epiglottic petiole Anterior hyoid excursion - Partial anterior movement Epiglottic movement - Complete inversion Laryngeal vestibule closure - Complete - no air/contrast in laryngeal vestibule Pharyngeal stripping wave - Complete Pharyngeal contraction (A/P view) - Unable to sufficiently visualize due to pt using natural chin tuck posture Pharyngoesophageal segment opening - Complete distension and complete duration/no obstruction of flow of bolus Tongue base retraction - Trace column of contrast or air between tongue base and pharyngeal wall Pharyngeal residue - Trace residue within or on the pharyngeal structures ESOPHAGEAL PHASE: Esophageal clearance - Esophageal retention COMMUNITY INTEGRATION SPECIALIST Impressions with Severity Rating: Pt presents with functional oropharyngeal swallow upon completion of modified barium swallow study this date. Swallowing physiology is detailed above. Pt used natural chin tuck posture and divided trials into small boluses sizes prior to swallowing (e.g., 20ml bolus was divided into 3 boluses), therefore above measurements are scored with small boluses only. Patient demonstrated penetration of thin liquid during first trial only (note that first trial is proven to be non-medical field representative of true swallow function). Penetrated contrast cleared with a spontaneous re-swallow. No further penetration was observed, and no aspiration was visualized during study. No significant pharyngeal residuals wer (more content not included)... [facility] Comment on above: Order Comment: SCHED ULED WITH PT PREP GIVEN EPIC ORDERS PT REFUSES TO DO PREP STATES THEY ARE LOOKING AT MY THROAT NOT MY STOMACH AND SAYS SHE WILL EAT PRIOR TO ESOPHAGRAM TEST FL MODIFIED BARIUM SWALLOW Librado Lisa 06-22-2025 FL MODIFIED BARIUM SWALLOW STUDY Interpreted By: Christo Leonard and Schmitz Kimberly STUDY: [place] MODIFIED BARIUM SWALLOW STUDY; [place] GI ESOPHAGRAM;; 06/22/2025 9:15 am INDICATION: Signs/Symptoms:see dx. ,R13.10 Dysphagia, unspecified,K59.00 Constipation, unspecified,R10.13 Epigastric pain,M62.89 Other specified disorders of muscle COMPARISON: None. ACCESSION NUMBER(S): [id number]; [id number] ORDERING CLINICIAN: GABINO LUIS TECHNIQUE: Modified Barium Swallow Study completed. Informed verbal consent obtained prior to completion of exam. The study was completed per protocol with various liquid barium consistencies, pudding, solids and a 13mm barium tablet. Deviations from the MBS administration protocol were made as needed due to pt condition: pt declined 40ml thin liquid trial and took a cup sip instead. A 1.9 cm or .75 inch (outer diameter) ring was placed on the chin in the lateral view and on the lateral, left side of the neck in the a-p view in order to complete objective measurements during swallowing. The anatomic structures and function of the oropharynx, larynx, hypopharynx and cervical esophagus were evaluated. COMMUNITY INTEGRATION SPECIALIST: Jeanine Lara, [facility]-COMMUNITY INTEGRATION SPECIALIST Contact info: Available via secure [employer] SPEECH FINDINGS: Reason for Referral: Pt reports that she has had dysphagia for about 10 years and that she has a history of a diverticulum (approximate level of diverticulum unknown). Pt also has a hx of gastric bypass many years ago. Pt reports that she has had sensation of pills getting stuck in the diverticulum lately, which prompted her provider to order MBS and esophagram for updated imaging. Pt eats small portions consistent with gastric bypass diet. Pt denies significant dysphagia to liquids or solids, but does report occasional coughing with PO intake. Patient Hx: anxiety, depression, complex regional pain syndrome, endometriosis, panic attack, fibromyalgia, arthritis, sinusitis, kidney disease, PTSD, tonsillectomy/adenoidectom y, pelvic floor myalgia Respiratory Status: Room air Current diet: Regular/thin Pain: Pain Scale: 0-10 Rating: did not rate FINAL SPEECH RECOMMENDATIONS DIET: - Regular (IDDSI Level 7) - Thin liquids (IDDSI Level 0) - Medications whole in liquid or puree STRATEGIES: - Upright positioning for all PO intake - Slow rate of intake - Chew food thoroughly prior to swallowing COMMUNITY INTEGRATION SPECIALIST PLAN: Skilled COMMUNITY INTEGRATION SPECIALIST Services: No further skilled COMMUNITY INTEGRATION SPECIALIST intervention is warranted for dysphagia at this time. Education Provided: No Treatment Provided Today: No Additional Medical Consults Suggested: None at this time; defer to esophagram report for any further recommendations Repeat study/ dc plan: No repeat recommended at this time; repeat MBSS as needed if symptoms of oropharyngeal dysphagia worsen. Mechanics of the Swallow Summary: ORAL PHASE: Lip Closure - No labial escape/anterior loss of bolus Tongue Control During Bolus Hold - Cohesive bolus between tongue to palatal seal Bolus prep/mastication - Timely and efficient mastication skills Bolus transport/lingual motion - Slowed Tongue Motion for A-P movement of the bolus Oral residue - Majority of bolus remaining PHARYNGEAL PHASE: Initiation of pharyngeal swallow - Bolus head at vallecular pit Soft palate elevation - No bolus between soft palate/pharyngeal wall Laryngeal elevation - Complete superior movement of thyroid cartilage with contact of arytenoids to epiglottic petiole Anterior hyoid excursion - Partial anterior movement Epiglottic movement - Complete inversion Laryngeal vestibule closure - Complete - no air/contrast in laryngeal vestibule Pharyngeal stripping wave - Complete Pharyngeal contraction (A/P view) - Unable to sufficiently visualize due to pt using natural chin tuck posture Pharyngoesophageal segment opening - Complete distension and complete duration/no obstruction of flow of bolus Tongue base retraction - Trace column of contrast or air between tongue base and pharyngeal wall Pharyngeal residue - Trace residue within or on the pharyngeal structures ESOPHAGEAL PHASE: Esophageal clearance - Esophageal retention COMMUNITY INTEGRATION SPECIALIST Impressions with Severity Rating: Pt presents with functional oropharyngeal swallow upon completion of modified barium swallow study this date. Swallowing physiology is detailed above. Pt used natural chin tuck posture and divided trials into small boluses sizes prior to swallowing (e.g., 20ml bolus was divided into 3 boluses), therefore above measurements are scored with small boluses only. Patient demonstrated penetration of thin liquid during first trial only (note that first trial is proven to be non-medical field representative of true swallow function). Penetrated contrast cleared with a spontaneous re-swallow. No further penetration was observed, and no aspiration was visualized during study. No significant pharyngeal residuals wer (more content not included)... Normal [facility] CNCOon 06-20-2025 CNCO Letter Text Normal [facility] 36on 06-15-2025 36 Rx loaded Normal [facility] CNOVon 06-15-2025 CNOV Office Visit (AGPOB3 ) -- ANCA HSU ([id number]) 1960 F Date Time Provider Department 06/15/25 8:00 AM PILO LUDWIG JR AGPOB3 During your visit today, we recorded the following information about you: Respiration Weight Height 18/minute 54.4 kg 1.626 m Pilo Ludwig Jr., MD 06/15/2025 8:24 AM Signed Patient presents with: Right Thumb - Established Patient, Follow Up, Post Op, Pain: Post op 04/09/202501/08 pain-sharp, throbbing PROCEDURE Right thumb carpometacarpal arthroplasty Right carpal tunnel release 04/09/2025 HISTORY OF PRESENT ILLNESS Anca Hsu presents for post operative follow up 9 weeks from surgery. She is doing OK today. She has started strengthening exercises. Current Concerns: Itching of her incision Pain control:Well controlled Currently taking pain medication:No Fever, chills or other signs of infection: none PHYSICAL EXAMINATION No erythema, cellulitis or drainage Incision lines are intact, no drainage noted. Scars are maturing nicely ROM: Still with limited motion of thumb, but improving Sensation:Normal sensation Brisk cap refill IMAGING No new imaging obtained. ASSESSMENT AND PLAN: Arthritis of carpometacarpal (cmc) joint of right thumb (primary encounter diagnosis) Carpal tunnel syndrome of right wrist I want her to continue to work on motion and strengthening. I will see her back as needed. Patient was instructed to call the office with any questions and/or concerns Scribe Attestation: By signing my name below, I, Anai Gary MA, attest that this documentation has been prepared under the direction and in the presence of Pilo Ludwig Jr., MD. Electronically Signed: Anai Gary MA, Scribe. June 15, 2025 8:11 AM. Clinician Attestation Statement: The information in this document, created by the medical coding instructor for me, accurately reflects the services I personally performed and the decisions made by me. I have reviewed and approved this document for accuracy. Pilo Ludwig MD Please note: This note has been produced using speech recognition software and may contain errors related to that system including grammar, punctuation, spelling, gender and words and phrases that may be inappropriate. Referring Provider: SELF [200] Allergies As of Date: 06/15/2025 Noted Allergy Reaction DEMORAL (MEPERIDINE) 10/01/2015 10 - Anaphylaxis PINE NUT 11/01/1969 2 - Rash 4 - Hives 9 - Itching 12 - Shortness of Breath BUPIVACAINE HCL 07/18/2020 10 - Anaphylaxis ADHESIVE TAPE (ROSINS) 10/01/2015 2 - Rash Comments: Rash and blisters, Surgical glue as well BLUE DYE 07/01/2022 4 - Hives Comments: Ultrasound gel CARAFATE (SUCRALFATE) 07/01/2022 14 - Other: See Comments Comments: Oral skin sloughing CHLORHEXIDINE 07/01/2022 14 - Other: See Comments Comments: Petechiae, blisters LATEX 06/24/2022 14 - Other: See Comments Comments: Patient is allergic to the powder in latex gloves; develops blisters LIDOCAINE 08/03/2023 10 - Anaphylaxis MARCAINE (BUPIVACAINE) 07/01/2022 10 - Anaphylaxis MOXIFLOXACIN 06/18/2023 7 - Swelling Comments: Eye drop form, eye, tongue and lips swelling NOVACAINE (PROCAINE) 07/01/2022 10 - Anaphylaxis SULFA (SULFONAMIDE ANTIBIOTICS) 07/01/2022 2 - Rash TREE NUTS 07/03/2022 10 - Anaphylaxis Comments: Walnuts WALNUT 07/10/2022 10 - Anaphylaxis Date Reviewed: 06/15/2025 Reviewed by: Matilda Green LPN - Fully Assessed Reason for Visit: Established Patient [175] Cmt: Post op 04/09/202501/08 pain-sharp, throbbing Follow Up [171] Cmt: Post op 04/09/202501/08 pain-sharp, throbbing Post Op [174] Cmt: Post op 04/09/202501/08 pain-sharp, throbbing Pain [78] Cmt: Post op 04/09/202501/08 pain-sharp, throbbing Primary Visit Diagnosis:Arthritis of carpometacarpal (CMC) joint of right thumb [M18.11] Other Visit Diagnosis:Carpal tunnel syndrome of right wrist [G56.01] Prescriptions as of 06/15/2025 - Olopatadine (PATADAY ONCE DAILY RELIEF) 0.2 % drop Use 1 drop in both eyes once daily. - cycloSPORINE (RESTASIS) 0.05 % ophthalmic emulsion Use 1 Drop in both eyes two times a day. - baclofen 10 mg diazePAM 10 mg lidocaine 2% vaginal suppository (CPD) Use 1 Suppository vaginally daily at bedtime. - cyanocobalamin, vitamin B-12, (VITAMIN B-12 ORAL) Take by mouth. - busPIRone (BUSPAR) 5 mg tablet Take 1 tablet (5 mg) by mouth 2 times daily for 60 doses. - hydrOXYchloroQUINE (PLAQUENIL) 200 mg tablet 200 mg at night, 100 mg in the morning - CALCIUM CARBONATE ORAL Take 1,200 mg by mouth once daily. - nortriptyline (PAMELOR) 10 mg capsule - cetirizine (ZYRTEC) 10 mg tablet Take 10 mg by mouth once daily. - mometasone (ELOCON) 0.1 % ointment APPLY TO AFFECTED AREA TOPICALLY EVERY DAY - hydrocortisone (ANUSOL-HC) 25 mg suppository 25 mg by RECTAL route as need (more content not included)... Normal [facility] CNOVon 06-08-2025 CNOV Office Visit (WALKWA ) -- ANCA HSU ([id number]) 1960 F Date Time Provider Department 06/08/25 2:00 PM CORDELL HERNANDEZ During your visit today, we recorded the following information about you: Temperature Pulse Respiration Blood pressure 98.2 degrees 76/minute 16/minute 106/73 Cordell Hernandez APRN.CNP 06/08/2025 2:52 PM Signed [facility] Subjective Anca Hsu is a 64 year old adult. Patient presents with: Ear Pain: Right ear pain. Started mildly on Wednesday night. Progressively got worse. Head aches. Chills. Body aches. Right side of face pain. HPI Right Ear Pain: - Onset: Wednesday evening. - Initially thought to be due to fluid; increased Zyrtec to BID with no relief. - Pain progressively worsened despite taking Tylenol. - History of recurrent right ear issues over the past 1.5 years. - Not wearing hearing aids today; reports a part of the hearing aid is missing. Review of Systems Ears/Nose/Mouth/Throat: (+) right ear pain Objective BP 106/73 (BP Site: Left Arm, BP Position: Sitting, BP Cuff Size: Regular Adult) Pulse 76 Temp 36.8 ?C (98.2 ?F) (Left Tympanic) Resp 16 SpO2 96% PAST MEDICAL HISTORY Diagnosis Date CRPS (complex regional pain syndrome type I) right hip and leg; RLQ Depression Fibromyalgia Generalized anxiety disorder Kidney stones Migraine headache without aura OAB (overactive bladder) Osteoarthritis of multiple joints Post traumatic stress disorder (PTSD) PAST SURGICAL HISTORY Procedure Laterality Date COLONOSCOPY 2018 Diverticulosis, hemorrhoids and colon polyps DERMABRASION REGIONAL OTHER THAN FACE Right 2019 pt denies this surgery GASTRIC BYPASS HX 2019 L'SCOPE CHOLECYSTECTOMY 2020 L'SCOPE DX W/WO BRUSHINGS/WASHINGS x 3 for endometriosis in the LIGATE FALLOPIAN TUBE 1986 PAST SURGICAL HISTORY OF 1998 Tubal reversal PAST SURGICAL HISTORY OF 2020 Removal of vaginal mesh PAST SURGICAL HISTORY OF Left 2022 ARTHROPLASTY CARPOMETACARPAL JOINTS (Left thumb carpal-metacarpal arthroplasty) (Left) DECOMPRESSION NERVE MEDIAN CARPAL TUNNEL (Left) PAST SURGICAL HISTORY OF Right 04/09/2025 Thumb Repair TOTAL HIP REPLACEMENT Right 12/2019 VAGINAL HYSTERECTOMY 2019 ovaries remain; bladder sling, rectocele repair ALLERGIES Demoral [Meperidine], [place] Nut, Bupivacaine Hcl, Adhesive Tape (Rosins), Blue Dye, Carafate [Sucralfate], Chlorhexidine, Latex, Lidocaine, Marcaine [Bupivacaine], Moxifloxacin, Novacaine [Procaine], Sulfa (Sulfonamide Antibiotics), Tree Nuts, and [place] MEDICATIONS Olopatadine (PATADAY ONCE DAILY RELIEF) 0.2 % drop Use 1 drop in both eyes once daily. cycloSPORINE (RESTASIS) 0.05 % ophthalmic emulsion Use 1 Drop in both eyes two times a day. baclofen 10 mg diazePAM 10 mg lidocaine 2% vaginal suppository (CPD) Use 1 Suppository vaginally daily at bedtime. cyanocobalamin, vitamin B-12, (VITAMIN B-12 ORAL) Take by mouth. busPIRone (BUSPAR) 5 mg tablet Take 1 tablet (5 mg) by mouth 2 times daily for 60 doses. hydrOXYchloroQUINE (PLAQUENIL) 200 mg tablet 200 mg at night, 100 mg in the morning CALCIUM CARBONATE ORAL Take 1,200 mg by mouth once daily. cetirizine (ZYRTEC) 10 mg tablet Take 10 mg by mouth once daily. mometasone (ELOCON) 0.1 % ointment APPLY TO AFFECTED AREA TOPICALLY EVERY DAY hydrocortisone (ANUSOL-HC) 25 mg suppository 25 mg by RECTAL route as needed. COLLAGEN MISC 6,000 mg two times a day. folic acid 800 mcg tablet Take 800 mcg by mouth two times a week. Takes twice per day BIOTIN ORAL Take 1 tablet by mouth once daily. Pt states she takes 5000mg Multivitamin capsule Take 1 capsule by mouth once daily. Ascorbic Acid 1,000 mg tablet Take 1,000 mg by mouth twice daily. Alpha Lipoic Acid 600 mg cap Take 600 mg by mouth twice daily. cloNIDine HCl (CATAPRES) 0.1 mg tablet Take 0.1 mg by mouth daily at bedtime. ondansetron (ZOFRAN) 8 mg tablet Take 8 mg by mouth every 8 hours as needed. SUMAtriptan (IMITREX) 100 mg tablet One stat and repeat in 2 hours , no more than 4 per week mdddpjqw-mgoetddbf-ojgtksc rtisone (CORTISPORIN) 3.5-10,000-1 mg/mL-unit/mL-% otic suspension Use 4 drops in the right ear three times a day for 5 days. nortriptyline (PAMELOR) 10 mg capsule gabapentin (NEURONTIN) 300 mg capsule Take 300 mg by mouth three times a day. FAMILY HISTORY Problem Relation Age of Onset Diabetes Mother Cervical Cancer Mother Colon Polyps Mother other (other) Father Ischemic Heart Disease Father Cervical Cancer Sister other (other) Sister Diabetes Sister Ischemic Heart Disease Sister Colon Polyps Sister Cervical Cancer Sister Diabetes Maternal Grandmother other (HTN) Maternal Grandmother other (CVA) Maternal Grandmother Breast Cancer Maternal Grandmother other (bladder cancer) Maternal Grandmother other (other) Maternal Grandfather Diabetes Maternal (more content not included)... Normal [facility] CNCOon 06-06-2025 CNCO Letter Text Normal [facility] 36on 05-23-2025 36 Attempted to call tabitha rahman. Voicemail is not set up Kory Alejandro DO 05/23/25 12:38 PM Noted concerns and I recommend small frequent carbohydrate meals and drinks. However reviewing her meds I feel we should stop the clonidine to make sure that rx is not contributing to her symptoms as it can drop her blood pressure as well. I feel that would be safe for her to do. Normal [facility] 36on 05-22-2025 36 S: Patient spoke giuseppe oliva [facility] nurse regarding dropping blood sugar B: Onset of symptoms/concern over 10 years but happening more. A: Blood sugar is 55. She is now eating a piece of chicken and drinking pineapple juice. She is only drinking 4 to 6 ounces because she had a bypass and can only take a little at a time. States she feels shaky and sweaty. No visual changes or weakness. At 1400 she had 1/4 cup of noodle with white sauce and green tea. States this is happening a lot more than before. But has never had confusion, seizure or coma. She does find she gets angry. Has appointment in July with securities adviser. Blood sugar is now 101. She is feeling better. R: Advised her to eat small frequent meals that include carbohydrates. Also advised she keep a journal of diet, blood sugars when they drop, what she eats, and when they come back up. Advised her we are here 24/05 and note will be sent to office regarding her symptoms. Patient understands care advice. No further needs at this time. Patient instructed to call back with new or worsening symptoms. Reason for Disposition [1] Blood glucose 70 mg/dL (3.9 mmol/L) or below OR symptomatic, now improved with Care Advice AND [2] cause unknown Protocols used: Diabetes - Low [id number] CNOV Office Visit (AGPOB3 ) -- ANCA HSU ([id number]) 1960 F Date Time Provider Department 05/22/25 8:00 AM PILO LUDWIG JR AGPOB3 During your visit today, we recorded the following information about you: Respiration Weight Height 18/minute 54.4 kg 1.626 m Pilo Ludwig Jr., MD 05/22/2025 8:11 AM Signed Patient presents with: Right Thumb - Post Op PROCEDURE Right thumb carpometacarpal arthroplasty Right carpal tunnel release 04/09/2025 HISTORY OF PRESENT ILLNESS Anca Hsu presents for post operative follow up 6 weeks from surgery. She is doing well. She is wearing her forearm-based splint. Current Concerns: None Pain control: States pain is 3/10 Currently taking pain medication:No Fever, chills or other signs of infection: None PHYSICAL EXAMINATION No erythema, cellulitis or drainage Incision lines are intact, no drainage noted. Scars are maturing nicely ROM: Able to touch thumb tip to other finger tips Sensation: Intact to light touch Thumb CMC joint is stable Brisk cap refill IMAGING None ASSESSMENT AND PLAN: Arthritis of carpometacarpal (cmc) joint of right thumb (primary encounter diagnosis) Carpal tunnel syndrome of right wrist I want her to come out of her splint at this time. This will help her ROM. She can start passive ROM with therapist now and can start strengthening in 2 weeks. I will see her back in 4 weeks. Pt given lifting restrictions while she is out of splint. Patient was instructed to call the office with any questions and/or concerns Clinician Attestation Statement: The information in this document, created by the medical coding instructor for me, accurately reflects the services I personally performed and the decisions made by me. I have reviewed and approved this document for accuracy. iPlo Ludwig MD Please note: This note has been produced using speech recognition software and may contain errors related to that system including grammar, punctuation, spelling, gender and words and phrases that may be inappropriate. Referring Provider: SELF [200] Allergies As of Date: 05/22/2025 Noted Allergy Reaction DEMORAL (MEPERIDINE) 10/01/2015 10 - Anaphylaxis PINE NUT 11/01/1969 2 - Rash 4 - Hives 9 - Itching 12 - Shortness of Breath BUPIVACAINE HCL 07/18/2020 10 - Anaphylaxis ADHESIVE TAPE (ROSINS) 10/01/2015 2 - Rash Comments: Rash and blisters, Surgical glue as well BLUE DYE 07/01/2022 4 - Hives Comments: Ultrasound gel CARAFATE (SUCRALFATE) 07/01/2022 14 - Other: See Comments Comments: Oral skin sloughing CHLORHEXIDINE 07/01/2022 14 - Other: See Comments Comments: Petechiae, blisters LATEX 06/24/2022 14 - Other: See Comments Comments: Patient is allergic to the powder in latex gloves; develops blisters LIDOCAINE 08/03/2023 10 - Anaphylaxis MARCAINE (BUPIVACAINE) 07/01/2022 10 - Anaphylaxis MOXIFLOXACIN 06/18/2023 7 - Swelling Comments: Eye drop form, eye, tongue and lips swelling NOVACAINE (PROCAINE) 07/01/2022 10 - Anaphylaxis SULFA (SULFONAMIDE ANTIBIOTICS) 07/01/2022 2 - Rash TREE NUTS 07/03/2022 10 - Anaphylaxis Comments: Walnuts WALNUT 07/10/2022 10 - Anaphylaxis Date Reviewed: 05/22/2025 Reviewed by: Omar Nye Tech - Fully Assessed Reason for Visit: Post Op [174] Primary Visit Diagnosis:Arthritis of carpometacarpal (CMC) joint of right thumb [M18.11] Other Visit Diagnosis:Carpal tunnel syndrome of right wrist [G56.01] Prescriptions as of 05/22/2025 - cycloSPORINE (RESTASIS) 0.05 % ophthalmic emulsion Use 1 Drop in both eyes two times a day. - baclofen 10 mg diazePAM 10 mg lidocaine 2% vaginal suppository (CPD) Use 1 Suppository vaginally daily at bedtime. - cyanocobalamin, vitamin B-12, (VITAMIN B-12 ORAL) Take by mouth. - busPIRone (BUSPAR) 5 mg tablet Take 1 tablet (5 mg) by mouth 2 times daily for 60 doses. - hydrOXYchloroQUINE (PLAQUENIL) 200 mg tablet 200 mg at night, 100 mg in the morning - CALCIUM CARBONATE ORAL Take 1,200 mg by mouth once daily. - nortriptyline (PAMELOR) 10 mg capsule - cetirizine (ZYRTEC) 10 mg tablet Take 10 mg by mouth once daily. - mometasone (ELOCON) 0.1 % ointment APPLY TO AFFECTED AREA TOPICALLY EVERY DAY - hydrocortisone (ANUSOL-HC) 25 mg suppository 25 mg by RECTAL route as needed. - COLLAGEN MISC 6,000 mg two times a day. - folic acid 800 mcg tablet Take 800 mcg by mouth two times a week. Takes twice per day - BIOTIN ORAL Take 1 tablet by mouth once daily. Pt states she takes 5000mg - Multivitamin capsule Take 1 capsule by mouth once daily. - Ascorbic Acid 1,000 mg tablet Take 1,000 mg by mouth twice daily. - Alpha Lipoic Acid 600 mg cap Take 600 mg by mouth twice daily. - cloNIDine HCl (CATAPRES) 0.1 mg tablet Take 0.1 mg by mouth daily at bedtime. - gabapentin (NEURONTIN) 300 mg capsule Take 300 mg by mouth three times (more content not included)... Normal [facility] CNCOon 05-21-2025 CNCO Letter Text Normal [facility] MUMPS ANTIBODY, IGGon 2024 MUMPS IGG ANTIBODY 2.3 Adriana Normal [facility] Comment on above: Result Comment: RAYMOND R COMMENTS: Interpretive Information: Results of 1.1 Adriana or greater = POSITIVE Results of 0.9 Adriana - 1.0 Adriana = EQUIVOCAL Results of 0.8 Adriana or less = NEGATIVE NOTES: If an equivocal result is interpreted, an antibody status is unable to be determined. Collect new specimen if clinically indicated. This is a qualitative test. The numeric antibody index reported does not correspond to antibody concentrations. Performed By: #### L [id number], [id number] ####Assistant Superintendent For Curriculum: LAINA MIRZA ([id number])[facility] ([facility])[address] [place] [address] RUBELLA ANTIBODY, IGGon RUBELLA IMMUNE STATUS (LIAISON XL) 0.951 Normal >=0.900 [facility] Comment on above: Result Comment: RAYMOND Mcleod COMMENTS: Interpretation Table: <0.900 Antibody NOT Detected >=0.900 AND <1.000 Antibody Equivocal >=1.000 Antibody Detected Performed By: #### L [id number] ####Assistant Superintendent For Curriculum: LAINA MIRZA ([id number])[facility])[address] [place] [address] RUBEOLA ANTIBODY IGGon 05-08 RUBEOLA IGG ANTIBODY 2.8 Adriana Normal [facility] Comment on above: Result Comment: RAYMOND Mcleod COMMENTS: Interpretive Information: Results of 1.1 Adriana or greater = POSITIVE Results of 0.9 Adriana - 1.0 Adriana = EQUIVOCAL Results of 0.8 Adriana or less = NEGATIVE NOTES: If an equivocal result is interpreted, an antibody status is unable to be determined. Collect new specimen if clinically indicated. This is a qualitative test. The numeric antibody index reported does not correspond to antibody concentrations. Performed By: #### L [id number], [id number] ####Assistant Superintendent For Curriculum: LAINA MIRZA ([phone])[facility])[address] [place] [address] 29on 05-07-2025 29 Addended by: JEANINE WAKEFIELD on: 05/08/2025 12:56 PM Modules accepted: Orders [facility]CA [facility]SU ([id number]) 1960 F Date Time Provider Department 04/27/25 PILO LUDWIG JR [id number] During your visit today, we recorded the following information about you: Ebonie Alfonso 04/27/2025 1:42 PM Signed ----- Message from Toyin Pavon sent at 04/27/2025 1:25 PM EDT ----- Regarding: Orthopedics / Pilo Ludwig) Hand: Finger Pain / Post Op Within 90 Day Period Orthopedics / Pilo Ludwig) Hand: Finger Pain / Post Op Within 90 Day Period Patient has been identified by name and Date of (Y/N): Y Patient: Anca Hsu Date of : 1960 Previous Provider Seen: Oziel Body Part(s) Identified: Left Thumb Diagnosis/Reason For Visit: Post Op Reason for the call/escalation: Pt calling to scheduling post op. Pt became upset with this agent because I could not schedule, and said she has already had 1 post op. Explained the process and patient hung up on me. If reason for call/escalation is discharge from ED/ER or Hospital, which facility was the patient seen at: na Was an appointment scheduled (Y/N): n Person calling if other than patient: pt Return call to if other than patient: pt Best contact number: [phone] Thank you, Toyin Houston April 27, 2025 1:26 PM Allergies As of Date: 04/27/2025 Noted Allergy Reaction DEMORAL (MEPERIDINE) 10/01/2015 10 - Anaphylaxis PINE NUT 11/01/1969 2 - Rash 4 - Hives 9 - Itching 12 - Shortness of Breath BUPIVACAINE HCL 07/18/2020 10 - Anaphylaxis ADHESIVE TAPE (ROSINS) 10/01/2015 2 - Rash Comments: Rash and blisters, Surgical glue as well BLUE DYE 07/01/2022 4 - Hives Comments: Ultrasound gel CARAFATE (SUCRALFATE) 07/01/2022 14 - Other: See Comments Comments: Oral skin sloughing CHLORHEXIDINE 07/01/2022 14 - Other: See Comments Comments: Petechiae, blisters LATEX 06/24/2022 14 - Other: See Comments Comments: Patient is allergic to the powder in latex gloves; develops blisters LIDOCAINE 08/03/2023 10 - Anaphylaxis MARCAINE (BUPIVACAINE) 07/01/2022 10 - Anaphylaxis MOXIFLOXACIN 06/18/2023 7 - Swelling Comments: Eye drop form, eye, tongue and lips swelling NOVACAINE (PROCAINE) 07/01/2022 10 - Anaphylaxis SULFA (SULFONAMIDE ANTIBIOTICS) 07/01/2022 2 - Rash TREE NUTS 07/03/2022 10 - Anaphylaxis Comments: Walnuts WALNUT 07/10/2022 10 - Anaphylaxis Date Reviewed: 04/20/2025 Reviewed by: Omar Nye Tech - Fully Assessed Reason for Visit: Post Op [174] Cmt: Follow up/appt. Prescriptions as of 04/27/2025 - cycloSPORINE (RESTASIS) 0.05 % ophthalmic emulsion Use 1 Drop in both eyes two times a day. - baclofen 10 mg diazePAM 10 mg lidocaine 2% vaginal suppository (CPD) Use 1 Suppository vaginally daily at bedtime. - cyanocobalamin, vitamin B-12, (VITAMIN B-12 ORAL) Take by mouth. - busPIRone (BUSPAR) 5 mg tablet Take 1 tablet (5 mg) by mouth 2 times daily for 60 doses. - hydrOXYchloroQUINE (PLAQUENIL) 200 mg tablet 200 mg at night, 100 mg in the morning - CALCIUM CARBONATE ORAL Take 1,200 mg by mouth once daily. - nortriptyline (PAMELOR) 10 mg capsule - cetirizine (ZYRTEC) 10 mg tablet Take 10 mg by mouth once daily. - mometasone (ELOCON) 0.1 % ointment APPLY TO AFFECTED AREA TOPICALLY EVERY DAY - hydrocortisone (ANUSOL-HC) 25 mg suppository 25 mg by RECTAL route as needed. - COLLAGEN MISC 6,000 mg two times a day. - folic acid 800 mcg tablet Take 800 mcg by mouth two times a week. Takes twice per day - BIOTIN ORAL Take 1 tablet by mouth once daily. Pt states she takes 5000mg - Multivitamin capsule Take 1 capsule by mouth once daily. - Ascorbic Acid 1,000 mg tablet Take 1,000 mg by mouth twice daily. - Alpha Lipoic Acid 600 mg cap Take 600 mg by mouth twice daily. - cloNIDine HCl (CATAPRES) 0.1 mg tablet Take 0.1 mg by mouth daily at bedtime. - gabapentin (NEURONTIN) 300 mg capsule Take 300 mg by mouth three times a day. - ondansetron (ZOFRAN) 8 mg tablet Take 8 mg by mouth every 8 hours as needed. - SUMAtriptan (IMITREX) 100 mg tablet One stat and repeat in 2 hours , no more than 4 per week Meds Comments as of 06/16/2023: She is using Preservative Free Artificial tears . Problem List As Of Date 04/27/2025 Noted Resolved Plantar fascial fibromatosis [M72.2] 12/26/2021 Calcaneal spur of right foot [M77.31] 12/26/2021 Migraine [G43.909] 05/21/2023 Combined forms of age-related cataract of both *06/11/2023 06/11/2023 Reflex sympathetic dystrophy of right leg [G90.*01/25/2024 Preop examination [Z01.818] 04/09/2025 Arthritis of carpometacarpal (CMC) joint of rig*04/09/2025 Carpal tunnel syndrome on right [G56.01] 04/09/2025 Positive RADHA (antinuclear antibody) [R76.8] 04/09/2025 Encounter Status:Closed by [facility]ONIE AL[facility]ONSO [facility] (AGPOB3 ) -- ANCA HSU ([id number]) 1960 F Date Time Provider Department 04/20/25 8:15 AM PILO LUDWIG JR During your visit today, we recorded the following information about you: Respiration Weight Height 18/minute 54.4 kg 1.626 m Pilo Ludwig Jr., MD 05/02/2025 3:40 PM Addendum Patient presents with: Right Thumb - Post Op PROCEDURE Right thumb carpometacarpal arthroplasty Right carpal tunnel release 04/09/2025 HISTORY OF PRESENT ILLNESS Anca Hsu presents for post operative follow up 11 days from surgery. She is wearing her brace. Current Concerns: Pain Pain control: Not controlled Currently taking pain medication: No Fever, chills or other signs of infection: None PHYSICAL EXAMINATION No erythema, cellulitis or drainage Incision lines are intact, no drainage noted. Scars are maturing nicely ROM: not tested Sensation:Normal sensation Brisk cap refill IMAGING No new imaging obtained. ASSESSMENT AND PLAN: Arthritis of carpometacarpal (cmc) joint of right thumb (primary encounter diagnosis) Carpal tunnel syndrome of right wrist I will send her to [facility] for a forearm based thumb spica brace. I will see her back in 4 weeks. Pt education provided on lifting restrictions Patient was instructed to call the office with any questions and/or concerns Scribe Attestation: By signing my name below, I, Anai Gary MA, attest that this documentation has been prepared under the direction and in the presence of Pilo Ludwig Jr., MD. Electronically Signed: Anai Gary MA, Scribe. April 20, 2025 8:25 AM. Clinician Attestation Statement: The information in this document, created by the medical coding instructor for me, accurately reflects the services I personally performed and the decisions made by me. I have reviewed and approved this document for accuracy. Pilo Ludwig MD Please note: This note has been produced using speech recognition software and may contain errors related to that system including grammar, punctuation, spelling, gender and words and phrases that may be inappropriate. Referring Provider: PILO LUDWIG JR [[id number]] Allergies As of Date: 04/20/2025 Noted Allergy Reaction DEMORAL (MEPERIDINE) 10/01/2015 10 - Anaphylaxis PINE NUT 11/01/1969 2 - Rash 4 - Hives 9 - Itching 12 - Shortness of Breath BUPIVACAINE HCL 07/18/2020 10 - Anaphylaxis ADHESIVE TAPE (ROSINS) 10/01/2015 2 - Rash Comments: Rash and blisters, Surgical glue as well BLUE DYE 07/01/2022 4 - Hives Comments: Ultrasound gel CARAFATE (SUCRALFATE) 07/01/2022 14 - Other: See Comments Comments: Oral skin sloughing CHLORHEXIDINE 07/01/2022 14 - Other: See Comments Comments: Petechiae, blisters LATEX 06/24/2022 14 - Other: See Comments Comments: Patient is allergic to the powder in latex gloves; develops blisters LIDOCAINE 08/03/2023 10 - Anaphylaxis MARCAINE (BUPIVACAINE) 07/01/2022 10 - Anaphylaxis MOXIFLOXACIN 06/18/2023 7 - Swelling Comments: Eye drop form, eye, tongue and lips swelling NOVACAINE (PROCAINE) 07/01/2022 10 - Anaphylaxis SULFA (SULFONAMIDE ANTIBIOTICS) 07/01/2022 2 - Rash TREE NUTS 07/03/2022 10 - Anaphylaxis Comments: Walnuts WALNUT 07/10/2022 10 - Anaphylaxis Date Reviewed: 04/20/2025 Reviewed by: Omar Nye Tech - Fully Assessed Reason for Visit: Post Op [174] Primary Visit Diagnosis:Arthritis of carpometacarpal (CMC) joint of right thumb [M18.11] Other Visit Diagnosis:Carpal tunnel syndrome of right wrist [G56.01] Order(s):CONSULT TO [facility]NETIC [facility]ALER [19991109] Order #: [id number]: 1 FUTURE Prescriptions as of 05/02/2025 - cycloSPORINE (RESTASIS) 0.05 % ophthalmic emulsion Use 1 Drop in both eyes two times a day. - baclofen 10 mg diazePAM 10 mg lidocaine 2% vaginal suppository (CPD) Use 1 Suppository vaginally daily at bedtime. - cyanocobalamin, vitamin B-12, (VITAMIN B-12 ORAL) Take by mouth. - busPIRone (BUSPAR) 5 mg tablet Take 1 tablet (5 mg) by mouth 2 times daily for 60 doses. - hydrOXYchloroQUINE (PLAQUENIL) 200 mg tablet 200 mg at night, 100 mg in the morning - CALCIUM CARBONATE ORAL Take 1,200 mg by mouth once daily. - nortriptyline (PAMELOR) 10 mg capsule - cetirizine (ZYRTEC) 10 mg tablet Take 10 mg by mouth once daily. - mometasone (ELOCON) 0.1 % ointment APPLY TO AFFECTED AREA TOPICALLY EVERY DAY - hydrocortisone (ANUSOL-HC) 25 mg suppository 25 mg by RECTAL route as needed. - COLLAGEN MISC 6,000 mg two times a day. - folic acid 800 mcg tablet Take 800 mcg by mouth two times a week. Takes twice per day - BIOTIN ORAL Take 1 tablet by mouth once daily. Pt states she takes 5000mg - Multivitamin capsule Take 1 capsule by mouth once daily. - Ascorbic Acid 1,000 mg tablet Take 1,000 mg by mouth twice daily. - Alpha Lipoic Acid 600 mg c (more content not included)... [facility] Tele[facility] (AGPOB3) -- ANCA HSU ([id number]) 1960 F Date Time Provider Department 04/13/25 PILO LUDWIG JR POB3 During your visit today, we recorded the following information about you: Ebonie Alfonso 04/13/2025 11:10 AM Signed S/P Rt thumb arthroplasty 04/09. Complaint of continued pain along with nausea. Patient states Percocet/Zofran does not seem to be helping. She is requesting Tylenol #3 for pain medication. Please advise? Amarilys Alfredo PA-C 04/13/2025 3:56 PM Signed Tylenol 3 prescription signed. Amarilys Alfredo PA-C April 13, 2025 3:56 PM Allergies As of Date: 04/13/2025 Noted Allergy Reaction DEMORAL (MEPERIDINE) 10/01/2015 10 - Anaphylaxis PINE NUT 11/01/1969 2 - Rash 4 - Hives 9 - Itching 12 - Shortness of Breath BUPIVACAINE HCL 07/18/2020 10 - Anaphylaxis ADHESIVE TAPE (ROSINS) 10/01/2015 2 - Rash Comments: Rash and blisters, Surgical glue as well BLUE DYE 07/01/2022 4 - Hives Comments: Ultrasound gel CARAFATE (SUCRALFATE) 07/01/2022 14 - Other: See Comments Comments: Oral skin sloughing CHLORHEXIDINE 07/01/2022 14 - Other: See Comments Comments: Petechiae, blisters LATEX 06/24/2022 14 - Other: See Comments Comments: Patient is allergic to the powder in latex gloves; develops blisters LIDOCAINE 08/03/2023 10 - Anaphylaxis MARCAINE (BUPIVACAINE) 07/01/2022 10 - Anaphylaxis MOXIFLOXACIN 06/18/2023 7 - Swelling Comments: Eye drop form, eye, tongue and lips swelling NOVACAINE (PROCAINE) 07/01/2022 10 - Anaphylaxis SULFA (SULFONAMIDE ANTIBIOTICS) 07/01/2022 2 - Rash TREE NUTS 07/03/2022 10 - Anaphylaxis Comments: Walnuts WALNUT 07/10/2022 10 - Anaphylaxis Date Reviewed: 04/09/2025 Reviewed by: Fabiola Romeo RN - Fully Assessed Reason for Visit: Post Op [174] Cmt: Pain Primary Visit Diagnosis:Arthritis of carpometacarpal (CMC) joint of right thumb [M18.11] Order(s):acetaminophen-cod eine (TYLENOL-COD #3) 300-30 mg per tabletTake 1 tablet by mouth every 6 hours as needed for up to 3 days.Disp: 12 tabletRfl: 0 Prescriptions as of 04/13/2025 - acetaminophen-codeine (TYLENOL-COD #3) 300-30 mg per tablet Take 1 tablet by mouth every 6 hours as needed for up to 3 days. - cycloSPORINE (RESTASIS) 0.05 % ophthalmic emulsion Use 1 Drop in both eyes two times a day. - baclofen 10 mg diazePAM 10 mg lidocaine 2% vaginal suppository (CPD) Use 1 Suppository vaginally daily at bedtime. - cyanocobalamin, vitamin B-12, (VITAMIN B-12 ORAL) Take by mouth. - busPIRone (BUSPAR) 5 mg tablet Take 1 tablet (5 mg) by mouth 2 times daily for 60 doses. - hydrOXYchloroQUINE (PLAQUENIL) 200 mg tablet 200 mg at night, 100 mg in the morning - CALCIUM CARBONATE ORAL Take 1,200 mg by mouth once daily. - nortriptyline (PAMELOR) 10 mg capsule TAKE 1-2 CAPSULE ORALLY AT BEDTIME - cetirizine (ZYRTEC) 10 mg tablet Take 10 mg by mouth once daily. - mometasone (ELOCON) 0.1 % ointment APPLY TO AFFECTED AREA TOPICALLY EVERY DAY - hydrocortisone (ANUSOL-HC) 25 mg suppository 25 mg by RECTAL route as needed. - COLLAGEN MISC 6,000 mg two times a day. - folic acid 800 mcg tablet Take 800 mcg by mouth two times a week. Takes twice per day - BIOTIN ORAL Take 1 tablet by mouth once daily. Pt states she takes 5000mg - Multivitamin capsule Take 1 capsule by mouth once daily. - Ascorbic Acid 1,000 mg tablet Take 1,000 mg by mouth twice daily. - Alpha Lipoic Acid 600 mg cap Take 600 mg by mouth twice daily. - cloNIDine HCl (CATAPRES) 0.1 mg tablet Take 0.1 mg by mouth daily at bedtime. - gabapentin (NEURONTIN) 300 mg capsule Take 300 mg by mouth three times a day. - ondansetron (ZOFRAN) 8 mg tablet Take 8 mg by mouth every 8 hours as needed. - SUMAtriptan (IMITREX) 100 mg tablet One stat and repeat in 2 hours , no more than 4 per week Meds Comments as of 06/16/2023: She is using Preservative Free Artificial tears . Problem List As Of Date 04/13/2025 Noted Resolved Plantar fascial fibromatosis [M72.2] 12/26/2021 Calcaneal spur of right foot [M77.31] 12/26/2021 Migraine [G43.909] 05/21/2023 Combined forms of age-related cataract of both *06/11/2023 06/11/2023 Reflex sympathetic dystrophy of right leg [G90.*01/25/2024 Preop examination [Z01.818] 04/09/2025 Arthritis of carpometacarpal (CMC) joint of rig*04/09/2025 Carpal tunnel syndrome on right [G56.01] 04/09/2025 Positive RADHA (antinuclear antibody) [R76.8] 04/09/2025 Prescriptions ordered this encounter Disp Refills Start End ACETAMINOPHEN 300 MG-CODEINE 30 MG T* 12 t* 0 04/13/2025 04/16/2025 Route: PO Sig: Take 1 tablet by mouth every 6 hours as needed for up to 3 days. Encounter Status:Closed by EBONIE ALFONSO on 04/13/25 [facility] ANES POSTPROC EVALon 025 ANES POSTPROC EVAL HNO ID: [id number] Author: AMILCAR GRACE MD Service: Anesthesiology Author Type: Anesthesiologist Type: Anesthesia Postprocedure Evaluation Filed: 04/09/2025 13:27 Note Text: POST ANESTHESIA EVALUATION NOTE : 1960 Procedure Summary Date: 04/09/25 Room / Location: [address] Anesthesia Start: 829 Anesthesia Stop: 1002 Procedure: ARTHROPLASTY CARPOMETACARPAL JOINTS Left Thumb CMC Arthrop[lasty (Left: Finger thumb) Diagnosis: Arthritis of carpometacarpal (CMC) joint of right thumb Carpal tunnel syndrome on right (Arthritis of carpometacarpal (CMC) joint of right thumb [M18.11]) (Carpal tunnel syndrome on right [G56.01]) Surgeons: Pilo Ludwig Jr., MD Responsible Provider: Amilcar Grace MD Anesthesia Type: general ASA Status: 2 Anesthesia Type: general Airway Type: LMA Last Vitals Vitals Value Taken Time BP 108/77 04/09/25 1210 Temp 36.4 ?C (97.5 ?F) 04/09/25 0958 HR SpO2 70 04/09/25 1150 Resp 16 04/09/25 1210 SpO2 98 % 04/09/25 1210 Post Anesthesia Patient Status Patient Evaluation: PACU. PACU/ICU Patient Condition: stable. Anticipated Disposition: phase 2 then home. Neurological Status: aware and responsive. Pulmonary Status: breathing comfortably on room air Airway Control: returned to baseline unsupported. Cardiovascular Status: stable. Pain Management: clinically adequate Postoperative Hydration: acceptable. Intraoperative Events: no significant anesthesia events Post Operative Nausea/Vomiting Status: no significant post operative nausea or vomiting Recommendation: further care per PACU/ICU/floor team. Anesthesia Observations No Documentation SIGNATURE: Amilcar Grace MD PATIENT NAME: Anca Hsu DATE: April 09, 2025 TIME: 1:27 PM CSN: [id number] Normal [facility] ANES PRE-OPon 04-09-2025 ANES PRE-OP HNO ID: [id number] Author: TERENCE LOMELI MD Service: Anesthesiology Author Type: Anesthesiologist Type: Anesthesia Preprocedure Evaluation Filed: 04/09/2025 07:48 Note Text: ANESTHESIOLOGY DAY OF SURGERY NOTE : 1960 Procedure Information Date/Time: 04/09/25829 Procedure: ARTHROPLASTY CARPOMETACARPAL JOINTS Left Thumb CMC Arthrop[lasty (Left: Finger thumb) Location: [facility] / [facility] Surgeons: Pilo Ludwig Jr., MD Estimated body mass index is 20.6 kg/m? as calculated from the following: Height as of this encounter: 162.6 cm (5' 4). Weight as of this encounter: 54.4 kg (120 lb). Most recent hematocrit and potassium results: Hematocrit 37.4 08/12/2023 Potassium 4.0 08/12/2023 Relevant Problems CARDIO (+) Migraine headache without aura NEURO-PSYCH (+) Migraine headache without aura Patient has local anesthesia allergy. Declines nerve block I - PHYSICAL EVALUATION AIRWAY Patient intubated: No. Tracheostomy tube not present Mallampati: III. TM distance: >3 FB. Neck ROM: full ROM without neurological symptoms. Mouth opening: adequate. Short neck: no. Thick neck: no DENTAL Dental findings: missing tooth/teeth. II - ANESTHESIA PLAN ASA Score: 2 Anesthetic Plan: general Airway type: LMA The patient is not a current smoker. (former) NPO Status: adequate Beta Denisa Monitoring Plan Monitoring plan: standard ASA. Post Procedure Analgesic Plan Postoperative analgesic plan: multimodal analgesia. Informed Consent Anesthetic risks, benefits, alternatives, personnel and consent discussed: yes. Patient / Responsible Alliance Party agrees to proceed: yes Patient / Surrogate agrees to blood products: Yes Potential Anesthesia issues that may suggest increased risk of complications or contraindication to planned procedure: none. Vitals Value Taken Time BP 118/74 04/09/25 0736 Pulse 71 04/09/25 0736 Resp 16 04/09/2536 Temp 37 ?C (98.6 ?F) 04/09/25 07 SpO2 98 % 04/09/25735 No current facility-administered medications on file as of 04/09/2025. Outpatient Medications as of 04/09/2025 Medication Sig baclofen 10 mg diazePAM 10 mg lidocaine 2% vaginal suppository (CPD) Use 1 Suppository vaginally daily at bedtime. cyanocobalamin, vitamin B-12, (VITAMIN B-12 ORAL) Take by mouth. busPIRone (BUSPAR) 5 mg tablet Take 1 tablet (5 mg) by mouth 2 times daily for 60 doses. hydrOXYchloroQUINE (PLAQUENIL) 200 mg tablet 200 mg at night, 100 mg in the morning CALCIUM CARBONATE ORAL Take 1,200 mg by mouth once daily. cetirizine (ZYRTEC) 10 mg tablet Take 10 mg by mouth once daily. mometasone (ELOCON) 0.1 % ointment APPLY TO AFFECTED AREA TOPICALLY EVERY DAY hydrocortisone (ANUSOL-HC) 25 mg suppository 25 mg by RECTAL route as needed. COLLAGEN MISC 6,000 mg two times a day. folic acid 800 mcg tablet Take 800 mcg by mouth two times a week. Takes twice per day BIOTIN ORAL Take 1 tablet by mouth once daily. Pt states she takes 5000mg Multivitamin capsule Take 1 capsule by mouth once daily. Ascorbic Acid 1,000 mg tablet Take 1,000 mg by mouth twice daily. Alpha Lipoic Acid 600 mg cap Take 600 mg by mouth twice daily. cloNIDine HCl (CATAPRES) 0.1 mg tablet Take 0.1 mg by mouth daily at bedtime. gabapentin (NEURONTIN) 300 mg capsule Take 300 mg by mouth three times a day. nortriptyline (PAMELOR) 10 mg capsule TAKE 1-2 CAPSULE ORALLY AT BEDTIME (Patient not taking: Reported on 06/13/2024) ondansetron (ZOFRAN) 8 mg tablet Take 8 mg by mouth every 8 hours as needed. SUMAtriptan (IMITREX) 100 mg tablet One stat and repeat in 2 hours , no more than 4 per week I have interviewed and examined the patient. I have reviewed the medical record and/or the pre-anesthesia evaluation, pertinent labs, and test results. This contains updated information obtained within 48 hours of Surgery/Procedure. SIGNATURE: Treence Lomeli MD PATIENT NAME: Anca Hsu DATE: April 09, 2025 TIME: 7:46 AM CSN: [id number] [facility] HISTORY PHYSICALon HISTORY PHYSICAL HNO ID: [id number] Author: JE RENO APRN.[employer] PROFESSOR Service: ? Author Type: Nurse Practitioner Type: H&P Filed: 04/09/2025 08:05 Note Text: HISTORY AND PHYSICAL EXAMINATION SERVICE DATE: 04/09/2025 SERVICE TIME: 7:23 AM PRIMARY CARE PHYSICIAN: Rocky Tatum DO (Inactive) REASON FOR VISIT: Anca Hsu is a 64 year old adult who is scheduled for Procedure(s): ARTHROPLASTY CARPOMETACARPAL JOINTS Left Thumb CMC Arthrop[lasty (Left) at the request of Dr. Ludwig for routine HANDP. The reason for this visit is to perform a comprehensive review of the patient's past medical history, assess their current health status and obtain any additional testing required based on anesthesia guidelines. We will also identify any potential anesthesia problems or contraindications to the planned procedure. The patient has the following: ACTIVE PROBLEM LIST Plantar Fascial Fibromatosis Calcaneal Spur of Right Foot Migraine Headache Without Aura Reflex Sympathetic Dystrophy of Right Leg Subjective CHIEF COMPLAINT: Arthritis of carpometacarpal (CMC) joint of right thumb [M18.11] Carpal tunnel syndrome on right [G56.01] HPI: Anca Hsu is a 64 year old adult who presents to [facility] for the above procedure. Patient c/o right hand numbness and tingling and pain at right thumb pain for a couple of years. She is s/p left CTR about 2 years ago with good outcome. Patient is agreeable to the procedure. METS: Climb a flight of stairs or walk up a hill (5.50 METs) Patient denies any CP/SOB with above activity. PAST MEDICAL HISTORY Diagnosis Date CRPS (complex regional pain syndrome type I) right hip and leg; RLQ Depression Fibromyalgia Generalized anxiety disorder Kidney stones Migraine headache without aura OAB (overactive bladder) Osteoarthritis of multiple joints Post traumatic stress disorder (PTSD) PAST SURGICAL HISTORY Procedure Laterality Date COLONOSCOPY 2017 Diverticulosis, hemorrhoids and colon polyps DERMABRASION REGIONAL OTHER THAN FACE Right 2019 pt denies this surgery GASTRIC BYPASS HX 2019 L'SCOPE CHOLECYSTECTOMY 2020 L'SCOPE DX W/WO BRUSHINGS/WASHINGS x 3 for endometriosis in the LIGATE FALLOPIAN TUBE 1986 PAST SURGICAL HISTORY OF 1998 Tubal reversal PAST SURGICAL HISTORY OF 2020 Removal of vaginal mesh PAST SURGICAL HISTORY OF Left 2022 ARTHROPLASTY CARPOMETACARPAL JOINTS (Left thumb carpal-metacarpal arthroplasty) (Left) DECOMPRESSION NERVE MEDIAN CARPAL TUNNEL (Left) TOTAL HIP REPLACEMENT Right 12/2019 VAGINAL HYSTERECTOMY 2019 ovaries remain; bladder sling, rectocele repair FAMILY HISTORY Problem Relation Age of Onset Diabetes Mother Cervical Cancer Mother Colon Polyps Mother other (other) Father Ischemic Heart Disease Father Cervical Cancer Sister other (other) Sister Diabetes Sister Ischemic Heart Disease Sister Colon Polyps Sister Cervical Cancer Sister Diabetes Maternal Grandmother other (HTN) Maternal Grandmother other (CVA) Maternal Grandmother Breast Cancer Maternal Grandmother other (bladder cancer) Maternal Grandmother other (other) Maternal Grandfather Diabetes Maternal Grandfather Ischemic Heart Disease Maternal Grandfather Diabetes Paternal Grandmother Diabetes Paternal Grandfather Diabetes Daughter Colon Cancer No Family History SOCIAL HISTORY: Social History Tobacco Use Smoking status: Former Current packs/day: 0.00 Types: Cigarettes Start date: 1971 Quit date: 1991 Years since quittin.4 Smokeless tobacco: Never Vaping Use Vaping status: Never Used Substance Use Topics Alcohol use: Yes Comment: occasional social occasion-rare Drug use: Never Prior to Admission medications as of 01/09/25 0826 Medication Sig Last Dose Taking cycloSPORINE (RESTASIS) 0.05 % ophthalmic emulsion Use 1 Drop in both eyes two times a day. 04/09/2025 at 5:00 AM Yes baclofen 10 mg diazePAM 10 mg lidocaine 2% vaginal suppository (CPD) Use 1 Suppository vaginally daily at bedtime. 04/08/2025 Yes cyanocobalamin, vitamin B-12, (VITAMIN B-12 ORAL) Take by mouth. 04/08/2025 Yes busPIRone (BUSPAR) 5 mg tablet Take 1 tablet (5 mg) by mouth 2 times daily for 60 doses. 04/09/2025 at 5:00 AM Yes hydrOXYchloroQUINE (PLAQUENIL) 200 mg tablet 200 mg at night, 100 mg in the morning 04/09/2025 at 5:00 AM Yes CALCIUM CARBONATE ORAL Take 1,200 mg by mouth once daily. 04/08/2025 Yes cetirizine (ZYRTEC) 10 mg tablet Take 10 mg by mouth once daily. 04/08/2025 Yes mometasone (ELOCON) 0.1 % ointment APPLY TO AFFECTED AREA TOPICALLY EVERY DAY 04/08/2025 Yes hydrocortisone (ANUSOL-HC) 25 mg suppository 25 mg by RECTAL route as needed. Past Week Yes COLLAGEN MISC 6,000 mg two times a day. 04/08/2025 Yes folic acid 800 mcg tablet Take 800 mcg by mouth two times a week. Takes twice per day 04/08/2025 Yes BIOTIN ORAL Take 1 tablet by mouth once daily. Pt states she takes 5000mg 04/08/2025 Yes Multivitamin capsule Ta (more content not included)... [facility] NURSING PROGon 04-09-2025 NURSING PROG HNO ID: [id number] Author: FABIOLA ROMEO RN Service: ? Author Type: Registered Nurse Type: Nursing Progress Note Filed: 04/09/2025 12:36 Note Text: Patient refusing assistance with straight catherizing self She said she will do it at home. Patient became angry verbally lashing out at me. Refusing to sign discharge instructions and refusing to check her belongings. Patient behavior odd and aggressive. Willem aware will let Dr Ludwig know. [facility] OPERATIVE NOon 04-09-2025 OPERATIVE NO HNO ID: [id number] Author: PILO LUDWIG JR, MD Service: Hand Surgery Author Type: Physician Type: Operative Report Filed: 04/09/2025 10:02 Note Text: HAND SURGERY OPERATIVE NOTE LOG ID: [id number] Surgery/Procedure Date: 04/09/2025 Incision/Procedure Start Time: 8:47 AM Incision Close/Procedure End Time: 9:50 AM Surgeon(s)/Proceduralist(s ) and Floatman(s): Surgeons and Role: * Pilo Ludwig Jr., MD - Primary No Additional Staff Procedure(s): Procedure(s) (LRB): Right thumb carpometacarpal arthroplasty Right carpal tunnel release Anesthesia: General Pre-Op/Pre-Procedure Diagnosis: Right thumb CMC arthritis and right carpal tunnel syndrome Post-Op/Post-Procedure Diagnosis: Right thumb CMC arthritis and right carpal tunnel syndrome Implant: * No implants in log * Fluids: Per anesthesia record Estimated Blood Loss: Minimal Specimens: None Findings: See below Complications: None Special medications: 2 g Ancef CLINICAL SCENARIO: This is a 64 year oldqxt-onqk-wzl adult, who presented to my office with signs and symptoms consistent with right thumb CMC arthritis and right carpal tunnel syndrome. She failed conservative measures. I did offer her right thumb carpometacarpal arthroplasty and right carpal tunnel release. I explained the risks, benefits, options, potential complications of surgery. She understood these risks and agreed to proceed. DESCRIPTION OF PROCEDURE: The patient's right thumb was marked with indelible ink in the preoperative holding area. Regional block was performed by the anesthesia staff. A Huddle was performed in the pre-surgical room. She was then brought to the operating room area and placed in supine position. A padded tourniquet was placed in the right upper extremity. Time-out procedure performed, and appropriate preoperative antibiotics were given. After adequate IV sedation was given, we prepped and draped the right upper extremity in sterile fashion. Using an Esmarch bandage to exsanguinate the right upper extremity, insufflated the tourniquet to 250 mmHg. Total tourniquet time was less than 60 minutes. I started by making a longitudinal incision on the radial border of the ring finger just proximal to Villalobos's cardinal line. Dissection was carried down through the subcutaneous tissue and down through the superficial palmar fascia. A self-retaining retractor was placed. I identified and divided the transverse carpal ligament distally into the palmar fat. I used a freer elevator to protect the median nerve and continued division of the transverse carpal ligament proximally to the wrist. I then freed the superficial attachments of the median nerve to the transverse carpal ligament. The wound was copiously irrigated and made hemostatic. I reapproximated the wound with 3 interrupted horizontal mattress sutures of 4-0 chromic. I then made a longitudinal incision on the border of glabrous and nonglabrous skin of the thumb metacarpal and continued this proximally across the volar wrist crease. I dissected down through subcutaneous tissue and identified and protected superficial nerves. I then sharply dissected the thenar musculature off the volar aspect of the CMC capsule. I identified the FCR tendon just proximal to its insertion in the trapezial tunnel. I used a small rongeur to remove the overlying trapezial ridge of the FCR tendon. I then made an L-shaped arthrotomy into the volar capsule of the CMC joint. I dissected circumferentially around the trapezium and removed the trapezium with a large rongeur. I then dissected dorsal to the EPB tendon 1 cm distal to the proximal articular surface of thumb metacarpal. I advanced a 1.45 mm K-wire retrograde and obliquely aiming for the ulnar one-third junction of the proximal articular surface of thumb metacarpal. I placed another hole parallel to this. I placed a JuggerKnot bone anchor in the base of the index metacarpal and brought the Maxbraid suture through the prior drill holes. I then tied the suture over the bone bridge, thus suspending the thumb metacarpal in proper reduction. There was good clinical position of the thumb. I then desufflated the tourniquet. Hemostasis was achieved, and the wound was copiously irrigated. I reapproximated the volar capsule with multiple tkxakk-wi-mpqpa sutures of 3-0 Ethibond. The thenar musculature was repaired with multiple [id number]-jq-[id number] sutures of 4-0 Vicryl. Skin was closed with buried subcutaneous sutures of 4-0 Vicryl and a running subcuticular stitch of 4-0 Monocryl. Steri-Strips and dry sterile dressing were applied. The patient was placed in a thumb spica splint. All sponge and needle counts were correct at the end of the case. DISPOSITION: The patient discharged home. She was given prescription of pain medication and instructions to call my office or return to the emergency room if any increasing pain, questions, or (more content not included)... Normal [facility] Office Visiton 04-02-2025 Follow-up visit [id number] [place] Hsu 1960 [facility] Provider Department [place] 04/02/2025 [id number] ALEJANDRO [facility] Family History Problem Relation Age of Onset Cervical cancer Mother 29 Rheum arthritis Mother Diabetes Mother Comments: diet cont, alive age 84 Heart failure Mother Kidney disease Father Comments: stroke Dementia Father Comments: age 87 in 06/24 Atrial fibrillation Father Melanoma Father Diabetes Sister Comments: oral rx and insulin Multiple sclerosis Sister Cervical cancer Sister COPD Sister Comments: smoker Heart attack Sister Comments: alive age 63 Parkinsonism Sister Comments: alive age 56 Alcohol abuse Sister Comments: not close Cervical cancer Sister No Known Problems Daughter Clotting disorder Son Other Son Comments: POTS Other Cousin Comments: Spinal musc atrophy, age 8 months Pes cavus Other Family Status - Relation Status Age at Mother Alive Father Sister Alive Sister Alive Daughter Son Cousin Other Level of Service:38050 [place] OFFICE/OUTPATIENT ESTABLISHED LOW MDM 20 MIN Reason for Visit and Comments: Follow-up [262728] - Med check pt refused weight Normal [facility] Progress Noteon 04-02-2025 Progress Note [facility] - [address] [facility] [address] Visit type: Established Patient Reason for Visit: Follow-up (Med check pt refused weight) Assessment / Plan: Anca was seen today for follow-up. Diagnoses and all orders for this visit: Other irritable bowel syndrome (Primary) Comments: stable, cont Buspar - Complex regional pain syndrome type 1 of right lower extremity Comments: Stable, continue gabapentin Other migraine without status migrainosus, not intractable Other orders - gabapentin (Neurontin) 300 MG capsule; TAKE 1 CAPSULE BY MOUTH THREE TIMES DAILY - busPIRone (Buspar) 5 MG tablet; Take 1 tablet (5 mg) by mouth 3 times daily. - SUMAtriptan (Imitrex) 100 MG tablet; TAKE 1 TABLET BY MOUTH at on set of headache, may repeat in 2 hours if needed. no more than 4 tablets per week Subjective: Patient ID: Anca Hsu is a 64 y.o. female. HPI patient for gabapentin refills for complex regional pain syndrome. Of note had a muscle spasm of the neck and shoulder and that has resolved. Shoulder x-ray showed no arthritis and had moderate disc disease of her C-spine. She feels no further workup necessary. Review of Systems apparently did see GI this past winter and had an ultrasound of the abdomen that did not show any changes except renal stones. Liver functions are slightly off but I cannot find the results of those. History of abnormal LFTs since 2018. GI not recommending colonoscopy. Patient continued on BuSpar 3 times daily for IBS symptoms. 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 Does have a lot of stress with her who has metastatic cancer as well as a issue with swelling of his 1 arm. Her daughter and sons are well. Allergies[1] Current Medications[2] Problem List[3] Social History Tobacco Use Smoking status: Former Current packs/day: 0.00 Types: Cigarettes Quit date: 09/13/1991 Years since quittin.5 Smokeless tobacco: Never Substance Use Topics Alcohol use: Yes Surgical History[4] Family History[5] Objective: BP 101/67 (BP Location: Left arm, Patient Position: Sitting, BP Cuff Size: Large adult) Pulse 65 Temp 36.9 ?C (98.4 ?F) (Temporal) Ht 5' 3 (1.6 m) SpO2 97% BMI 20.90 kg/m? Physical Exam she appears well. Alert and pleasant. No obvious neck masses. No adenopathy. Heart is regular without gallops or murmurs or ectopy. Lungs are clear. Abdomen not examined because she is would not lie back. No obvious extremity pallor or cyanosis. No lower extremity exam done due to patient sensitivity. [1] Allergies Allergen Reactions Lidocaine Anaphylaxis Other reaction(s): Unknown Moxifloxacin Swelling and Anaphylaxis Lips and tongue swelling and eye lid Hale Hives, Itching, Shortness of breath and Dermatitis Other reaction(s): Dermatitis, shortness of breath Hale Nuts Shortness of breath Bupivacaine Other reaction(s): anaphylaxis Bupivacaine Hcl Other reaction(s): anaphylaxis Chlorhexidine Other reaction(s): petichiae rash Latex Other reaction(s): hives Other reaction(s): hives Meperidine Other reaction(s): Other (See Comments) Mental sx Meperidine Hcl Other reaction(s): ? Procaine Other reaction(s): anaphylaxis Sucralfate Other reaction(s): Other (See Comments) Skin came off in mouth Sulfa Antibiotics Sulfamethoxazole Ultrasound Gel Hives and Itching Blue Dyes (Parenteral) Hives and Itching Wound Dressings Rash [2] Current Outpatient Medications: acetaminophen (Tylenol) 500 MG tablet, Take by mouth., Disp: , Rfl: Alpha-Lipoic Acid 600 MG capsule, Take 600 mg by mouth., Disp: , Rfl: Ascorbic Acid (vitamin C) 1000 MG tablet, Take 1,000 mg by mouth in the morning and 1,000 mg in the evening., Disp: , Rfl: biotin 10 MG capsule, Every 24 hours., Disp: , Rfl: CALCIUM PO, Take 1,200 mg by mouth daily., Disp: , Rfl: cloNIDine (Catapres) 0.1 MG tablet, TAKE 1 TABLET BY MOUTH EVERY DAY, Disp: 90 tablet, Rfl: 1 cycloSPORINE (Restasis) 0.05 % ophthalmic emulsion, Administer 1 drop into both eyes every 12 hours., Disp: , Rfl: estradiol (Estrace) 0.1 MG/GM vaginal cream, Place 1 gm sized amount vaginally nightly for 2 weeks and then 3 times a week thereafter., Disp: , Rfl: hydrocortisone (Anusol-HC) 25 MG suppository, Insert 1 suppository (25 mg) into the rectum 2 times daily., Disp: 12 suppository, Rfl: 1 hydroxychloroquine (Plaquenil) 200 MG tablet, Take 200 mg by mouth Nightly. Takes 100 mg in am, Disp: , Rfl: Magnesium 400 MG capsule, Take 400 mg by mouth daily., Disp: , Rfl: Multiple Vitamin (Multi Vitamin) tablet, Every 24 hours., Disp: , Rfl: ondansetron (Zofran) 4 MG tablet, Take 1 tablet (4 mg) by mouth every 8 hours as needed for nausea or vomiting for up to 7 days., Disp: 20 tablet, Rfl: 0 UNABLE TO FIND, Take 6,000 mg by mouth in the morning and 6,000 mg in the evening. Col (more content not included)... Normal [facility] C-REACTIVE PROTEINon 025 CRP [Mass/Vol] mg/L Normal <8.0 [facility] Comment on above: Performed By: #### 3 95, 7909 #### [facility] [address], [address] [place] [address] Assistant Superintendent For Curriculum: Tyler Mcrae MD CBC (INCLUDES DIFF/PLT)on Basophils (Bld) [#/Vol] 0.053 10*3/uL Normal 0-200 [facility] Comment on above: Performed By: #### 3 95, 7909 #### [facility] [place] [address] Assistant Superintendent For Curriculum: Tyler Mcrae MD Basophils/100 WBC (Bld) 0.8 % Normal [facility] Comment on above: Performed By: #### 3 95, 7909 #### [facility] [place] [address] Assistant Superintendent For Curriculum: Tyler Mcrae MD Eosinophils (Bld) [#/Vol] 0.099 10*3/uL Normal 15-500 [facility] Comment on above: Performed By: #### 3 95, 7909 #### [facility] [place] [address] Assistant Superintendent For Curriculum: Tyler Mcrae MD Eosinophils/100 WBC (Bld) 1.5 % Normal [facility] Comment on above: Performed By: #### 3 95, 7909 #### [facility] of [place] [address] Assistant Superintendent For Curriculum: Tyler Mcrae MD Erythrocyte distribution width (RBC) [Ratio] 12.4 % Normal 11.0-15.0 [facility] Comment on above: Performed By: #### 3 95, 7909 #### [facility] [place] [address] Assistant Superintendent For Curriculum: Tyler Mcrae MD Hematocrit (Bld) [Volume fraction] 39.7 % Normal 35.0-45.0 [facility] Comment on above: Performed By: #### 3 95, 7909 #### [facility] [place] [address] Assistant Superintendent For Curriculum: Tyler Mcrae MD Hemoglobin (Bld) [Mass/Vol] 13.1 g/dL Normal 11.7-15.5 [facility] Comment on above: Performed By: #### 3 95, 7909 #### [facility] [place] [address] Assistant Superintendent For Curriculum: Tyler Mcrae MD Lymphocytes (Bld) [#/Vol] 1.327 10*3/uL Normal 850-3900 [facility] Comment on above: Performed By: #### 3 95, 7909 #### [facility] [place] [address] Assistant Superintendent For Curriculum: Tyler Mcrae MD Lymphocytes/100 WBC (Bld) 20.1 % Normal [facility] Comment on above: Performed By: #### 3 95, 7909 #### [facility] [place] [address] Assistant Superintendent For Curriculum: Tyler Mcrae MD MCH (RBC) [Entitic mass] 32.0 pg Normal 27.0-33.0 [facility] Comment on above: Performed By: #### 3 , 7909 #### [facility] of [place] [address] Assistant Superintendent For Curriculum: Tyler Mcrae MD MCHC (RBC) [Mass/Vol] 33.0 g/dL Normal 32.0-36.0 [facility] Comment on above: Result Comment: For adults, a slight decrease in the calculated MCHC value (in the range of 30 to 32 g/dL) is most likely not clinically significant; however, it should be interpreted with caution in correlation with other red cell parameters and the patient's clinical condition. Performed By: #### 3 , 7909 #### [facility] of [place] [address] Assistant Superintendent For Curriculum: Tyler Mcrae MD MCV (RBC) [Entitic vol] 97.1 fL Normal 80.0-100.0 [facility] Comment on above: Performed By: #### 3 , 7909 #### [facility] [place] [address] Assistant Superintendent For Curriculum: Tyler Mcrae MD Monocytes (Bld) [#/Vol] 0.488 10*3/uL Normal 200-950 [facility] Comment on above: Performed By: #### 3 95, 7909 #### [facility] [place] [address] Assistant Superintendent For Curriculum: Tyler Mcrae MD Monocytes/100 WBC (Bld) 7.4 % Normal [facility] Comment on above: Performed By: #### 3 , 7909 #### [facility] [place] [address] Assistant Superintendent For Curriculum: Tyler Mcrae MD Neutrophils (Bld) [#/Vol] 4.633 10*3/uL Normal 6404-3469 [facility] Comment on above: Performed By: #### 3 , 7909 #### [facility] [place] [address] Assistant Superintendent For Curriculum: Tyler Mcrae MD Neutrophils/100 WBC (Bld) 70.2 % Normal [facility] Comment on above: Performed By: #### 3 95, 7909 #### [facility] [place] [address] Assistant Superintendent For Curriculum: Tyler Mcrae MD Platelet mean volume (Bld) [Entitic vol] 10.3 fL Normal 7.5-12.5 [facility] Comment on above: Performed By: #### 3 95, 7909 #### [facility] [place] [address] Assistant Superintendent For Curriculum: Tyler Mcrae MD Platelets (Bld) [#/Vol] 306 10*3/uL Normal 140-400 [facility] Comment on above: Performed By: #### 3 95, 7909 #### [facility] [place] [address] Assistant Superintendent For Curriculum: Tyler Mcrae MD RBC (Bld) [#/Vol] 4.09 10*6/uL Normal 3.80-5.10 [facility] Comment on above: Performed By: #### 3 95, 7909 #### [facility] [place] [address] Assistant Superintendent For Curriculum: Tyler Mcrae MD WBC (Bld) [#/Vol] 6.6 10*3/uL Normal 3.8-10.8 [facility] Comment on above: Performed By: #### 3 95, 7909 #### [facility] [place] [address] Assistant Superintendent For Curriculum: Tyler Mcrae MD COMPREHENSIVE METABOLIC PANE L W/ANION GAPon 03-29-2025 Albumin [Mass/Vol] 4.6 g/dL Normal 3.6-5.1 [facility] Comment on above: Order Comment: FASTI NG:UNKNOWNFASTING: UNKNOWN Performed By: #### 3 95, 7909 #### [facility] of [place] [address] Assistant Superintendent For Curriculum: Tyler Mcrae MD ALP [Catalytic activity/Vol] 81 U/L Normal 37-153 [facility] Comment on above: Order Comment: FASTI NG:UNKNOWNFASTING: UNKNOWN Performed By: #### 3 95, 7909 #### [facility] [place] [address] Assistant Superintendent For Curriculum: Tyler Mcrae MD ALT [Catalytic activity/Vol] 36 U/L High 6-29 [facility] Comment on above: Order Comment: FASTI NG:UNKNOWNFASTING: UNKNOWN Performed By: #### 3 95, 7909 #### [facility] [place] [address] Assistant Superintendent For Curriculum: Tyler Mcrae MD AST [Catalytic activity/Vol] 34 U/L Normal 10-35 [facility] Comment on above: Order Comment: FASTI NG:UNKNOWNFASTING: UNKNOWN Performed By: #### 3 95, 7909 #### [facility] [place] [address] Assistant Superintendent For Curriculum: Tyler Mcrae MD Bilirubin [Mass/Vol] 0.3 mg/dL Normal 0.2-1.2 [facility] Comment on above: Order Comment: FASTI NG:UNKNOWNFASTING: UNKNOWN Performed By: #### 3 95, 7909 #### [facility] [place] [address] Assistant Superintendent For Curriculum: Tyler Mcrae MD Calcium [Mass/Vol] 9.7 mg/dL Normal 8.6-10.4 [facility] Comment on above: Order Comment: FASTI NG:UNKNOWNFASTING: UNKNOWN Performed By: #### 3 95, 7909 #### [facility] [place] [address] Assistant Superintendent For Curriculum: Tyler Mcrae MD Chloride [Moles/Vol] 106 mmol/L Normal 98-110 [facility] Comment on above: Order Comment: FASTI NG:UNKNOWNFASTING: UNKNOWN Performed By: #### 3 95, 7909 #### [facility] [place] [address] Assistant Superintendent For Curriculum: Tyler Mcrae MD CO2 [Moles/Vol] 24 mmol/L Normal 20-32 [facility] Comment on above: Order Comment: FASTI NG:UNKNOWNFASTING: UNKNOWN Performed By: #### 3 95, 7909 #### [facility] [place] [address] Assistant Superintendent For Curriculum: Tyler Mcrae MD Creatinine [Mass/Vol] 0.56 mg/dL Normal 0.50-1.05 [facility] Comment on above: Order Comment: FASTI NG:UNKNOWNFASTING: UNKNOWN Performed By: #### 3 95, 7909 #### [facility] [place] [address] Assistant Superintendent For Curriculum: Tyler Mcrae MD ELECTROLYTE BALANCE 11 mmol/L (calc) Normal 7-17 [facility] Comment on above: Order Comment: FASTI NG:UNKNOWNFASTING: UNKNOWN Performed By: #### 3 95, 7909 #### [facility] [place] [address] Assistant Superintendent For Curriculum: Tyler Mcrae MD GFR/1.73 sq M.predicted among non-blacks MDRD (S/P/Bld) [Vol rate/Area] 102 mL/min/{1.73_m2} Normal > OR = 60 [facility] Comment on above: Order Comment: FASTI NG:UNKNOWNFASTING: UNKNOWN Performed By: #### 3 95, 7909 #### [facility] [place] [address] Assistant Superintendent For Curriculum: Tyler Mcrae MD Glucose [Mass/Vol] 69 mg/dL Normal 65-99 [facility] Comment on above: Order Comment: FASTI NG:UNKNOWNFASTING: UNKNOWN Result Comment: Fasting reference interval Performed By: #### 3 95, 7909 #### [facility] [place] [address] Assistant Superintendent For Curriculum: Tyler Mcrae MD Potassium [Moles/Vol] 3.8 mmol/L Normal 3.5-5.3 [facility] Comment on above: Order Comment: FASTI NG:UNKNOWNFASTING: UNKNOWN Performed By: #### 3 95, 7909 #### [facility] [place] [address] Assistant Superintendent For Curriculum: Tyler Mcrae MD Protein [Mass/Vol] 7.0 g/dL Normal 6.1-8.1 [facility] Comment on above: Order Comment: FASTI NG:UNKNOWNFASTING: UNKNOWN Performed By: #### 3 95, 7909 #### [facility] [place] [address] Assistant Superintendent For Curriculum: Tyler Mcrae MD Sodium [Moles/Vol] 141 mmol/L Normal 135-146 [facility] Comment on above: Order Comment: FASTI NG:UNKNOWNFASTING: UNKNOWN Performed By: #### 3 95, 7909 #### [facility] [place] [address] Assistant Superintendent For Curriculum: Tyler Mcrae MD Urea nitrogen [Mass/Vol] 11 mg/dL Normal 7-25 [facility] Comment on above: Order Comment: FASTI NG:UNKNOWNFASTING: UNKNOWN Performed By: #### 3 95, 7909 #### [facility] [place] [address] Assistant Superintendent For Curriculum: Tyler Mcrae MD SED RATE BY MODIFIED TIANNA Sharp 03-29-2025 SED RATE BY MODIFIED [facility] Normal [facility] Comment on above: Result Comment: UNAB LE TO REPORT Initial testing necessitated a repeat, but there was insufficient sample to perform. Performed By: #### 3 95, 7909 #### [facility] [place] [address] Assistant Superintendent For Curriculum: Tyler yDe 03-13-2025 CNPN Telephone (AGPOB1) -- ANCA HSU ([id number]) 1960 F Date Time Provider Department 03/13/25 OZIEL ROCK, PILO BRAGA AGPOB1 During your visit today, we recorded the following information about you: Jacque Everett 03/13/2025 11:03 AM Signed Called the patient in regards to her post op therapy appt, when in the office patient stated she did not want to use [facility] OT stated she has a therapist she sees and would like to set up her own appt with them. I was not able to reach the patient or leave a voicemail will try her again. Jacque Cody 03/21/2025 2:07 PM Addendum Spoke to the patient she does want to be scheduled for post op OT at any of our locations. Patient states she will schedule her own post op therapy appointment with a therapist of her choice but was not able to give me that information. Per her surgery sheet Dr Ludwig would like her to be seen 3-5 days with one of our hand specialists after her surgery that is scheduled for 04/03/25. Please advise Thanks! Jacque Everett Allergies As of Date: 03/13/2025 Noted Allergy Reaction DEMORAL (MEPERIDINE) 10/01/2015 10 - Anaphylaxis PINE NUT 11/01/1969 2 - Rash 4 - Hives 9 - Itching 12 - Shortness of Breath BUPIVACAINE HCL 07/18/2020 10 - Anaphylaxis ADHESIVE TAPE (ROSINS) 10/01/2015 2 - Rash Comments: Rash and blisters, Surgical glue as well BLUE DYE 07/01/2022 4 - Hives Comments: Ultrasound gel CARAFATE (SUCRALFATE) 07/01/2022 14 - Other: See Comments Comments: Oral skin sloughing CHLORHEXIDINE 07/01/2022 14 - Other: See Comments Comments: Petechiae, blisters LATEX 06/24/2022 14 - Other: See Comments Comments: Patient is allergic to the powder in latex gloves; develops blisters LIDOCAINE 08/03/2023 10 - Anaphylaxis MARCAINE (BUPIVACAINE) 07/01/2022 10 - Anaphylaxis MOXIFLOXACIN 06/18/2023 7 - Swelling Comments: Eye drop form, eye, tongue and lips swelling NOVACAINE (PROCAINE) 07/01/2022 10 - Anaphylaxis SULFA (SULFONAMIDE ANTIBIOTICS) 07/01/2022 2 - Rash TREE NUTS 07/03/2022 10 - Anaphylaxis Comments: Walnuts WALNUT 07/10/2022 10 - Anaphylaxis Date Reviewed: 01/09/2025 Reviewed by: Mora Sutton Tech - Fully Assessed Reason for Visit: Appointment [186] Cmt: Post Op Therapy Prescriptions as of 03/21/2025 - baclofen 10 mg diazePAM 10 mg lidocaine 2% vaginal suppository (CPD) Use 1 Suppository vaginally daily at bedtime. - cycloSPORINE (RESTASIS) 0.05 % ophthalmic emulsion Use 1 Drop in both eyes two times a day. - cyanocobalamin, vitamin B-12, (VITAMIN B-12 ORAL) Take by mouth. - busPIRone (BUSPAR) 5 mg tablet Take 1 tablet (5 mg) by mouth 2 times daily for 60 doses. - hydrOXYchloroQUINE (PLAQUENIL) 200 mg tablet Take 1.5 tablets (300 mg) by mouth once daily. - CALCIUM CARBONATE ORAL Take 1,200 mg by mouth once daily. - nortriptyline (PAMELOR) 10 mg capsule TAKE 1-2 CAPSULE ORALLY AT BEDTIME - cetirizine (ZYRTEC) 10 mg tablet Take 10 mg by mouth once daily. - mometasone (ELOCON) 0.1 % ointment APPLY TO AFFECTED AREA TOPICALLY EVERY DAY - hydrocortisone (ANUSOL-HC) 25 mg suppository 25 mg by RECTAL route as needed. - COLLAGEN MISC 6,000 mg two times a day. - folic acid 800 mcg tablet Take 800 mcg by mouth two times a week. Takes twice per day - BIOTIN ORAL Take 1 tablet by mouth once daily. Pt states she takes 5000mg - Multivitamin capsule Take 1 capsule by mouth once daily. - Ascorbic Acid 1,000 mg tablet Take 1,000 mg by mouth twice daily. - Alpha Lipoic Acid 600 mg cap Take 600 mg by mouth twice daily. - cloNIDine HCl (CATAPRES) 0.1 mg tablet Take 0.1 mg by mouth daily at bedtime. - gabapentin (NEURONTIN) 300 mg capsule Take 300 mg by mouth three times a day. - ondansetron (ZOFRAN) 8 mg tablet Take 8 mg by mouth every 8 hours as needed. - SUMAtriptan (IMITREX) 100 mg tablet One stat and repeat in 2 hours , no more than 4 per week Meds Comments as of 06/16/2023: She is using Preservative Free Artificial tears . Problem List As Of Date 03/13/2025 Noted Resolved Plantar fascial fibromatosis [M72.2] 12/26/2021 Calcaneal spur of right foot [M77.31] 12/26/2021 Migraine headache without aura [G43.009] 05/21/2023 Combined forms of age-related cataract of both *06/11/2023 06/11/2023 Reflex sympathetic dystrophy of right leg [G90.*01/25/2024 Encounter Status:Closed by JACQUE EVERETT on 03/13/25 [facility] 03-08-2025 36 A letter was mailed to last known address. [facility] 03-07-2025 36 Called patient to ad vise but patients voicemail not set up. Actions message sent to patient. [facility] 03-06-2025 36 S: Patient spoke wit [facility] nurse regarding vomiting. B: Onset of symptoms/concern Patient states that she has trigger point injection and had 300 units botox. Vomiting began after surgery. She is concerned about not being able to take Gabapentin, Buspar, Clonidine and Plaquenil. A: Patient states that she is unable to keep anything down, including fluids. She reports 10at least episodes of emesis within the last 24 hours. R: Patient advised to go to ER for evaluation, she states that she is unable to go as she is unable to get there. She would like to know what symptoms of withdrawal from these medications she should look for. Withdrawal symptoms from these medication reviewed with patient, she verbalize understanding. Patient also advised to contact her surgeon who performed the procedure to let them know about excessive vomiting beginning after surgery. Care advice reviewed with patient. Patient understands care advice. No further needs at this time. Reason for Disposition [1] SEVERE vomiting (e.g., 6 or more times/day) AND [2] present > 8 hours (Exception: Patient sounds well, is drinking liquids, does not sound dehydrated, and vomiting has lasted less than 24 hours.) Protocols used: [id number] 03-[facility]2025 29 Addended by: KIERAN TORREZ on: 03/01/2025 10:16 AM Modules accepted: Orders Normal [facility] 03-01-2025 36 Orders cancelled Normal [facility] 36 Since patient refusi ng to sched MRI can orders be closed [facility] [id number] 36 Name of caller: Jones lucas Contact phone number: [phone] Relationship to Patient: [facility] Radiology Provider: Kory Alejandro DO Practice: [facility] Chief Complaint/Reason for Call: Corina with [facility] reports that pt is no longer wanting to have her MR cervical spine wo contrast (Order [id number]) Done at [facility]. Best time of day caller can be reached: any Patient advised that office/PCP has 24-48 business hours to return their call: n/a Normal [facility] BI MAMMO BILATERAL SCREENING TOMOSYNTHESISon 02-22-2025 BI MAMMO BILATERAL SCREENING TOMOSYNTHESIS Interpreted By: Saba Medina, STUDY: BI MAMMO BILATERAL SCREENING TOMOSYNTHESIS; 02/22/2025 1:50 pm ACCESSION NUMBER(S): [id number] ORDERING CLINICIAN: SELF MAMMOGRAM INDICATION: Screening. Patient asked only minimal touching for positioning during exam. ,Z12.31 Encounter for screening mammogram for malignant neoplasm of breast COMPARISON: There are no studies for comparison. FINDINGS: 2D and tomosynthesis images were reviewed at 1 mm slice thickness. Density: The breasts are heterogeneously dense, which may obscure small masses. Only a left craniocaudal image was obtained. Patient indicated she was finished with the study and left the department. IMPRESSION: Incomplete study. Left craniocaudal image performed. Recommendation is for the patient to complete the study. We are here to help the patient in any way possible. BI-RADS CATEGORY: BI-RADS Category: 0 Incomplete; Need Additional Imaging Evaluation Recommendation: Technical Repeat. Recommended Date: Immediate. Laterality: Bilateral. For any future breast imaging appointments, please call [phone] ([phone]). MACRO: None Signed by: Saba Medina 02/22/2025 2:24 PM Dictation workstation: [id number] [facility] 02-21-2025 36 Faxed orders with au th and clinicals to [facility]'s MRI dept. They will contact pt to sched test. Normal [facility] 36on 02-20-2025 36 Updated orders for MRI-Cervical pended for dx and signature. [facility] and they will contact pt to sched. Sedation MRIs are only done on Wed Normal [facility] [id number] 02-16-2025 [id number] Noted Normal [facility] 36on 02-16-2025 36 noted Normal [facility] 36 Sabrina Last spok e with patient and she says she only uses [facility] and she would like to go there. [facility] [id number] 02-14-2025 [id number] All addressed in ano ther encounter [facility] [id number] Chintan Strong You; [facility] Clinical Support Staff3 weeks ago Can someone call an MRI department and see if there is such a procedure where a patient is given a short term sedative hypnotic like Versed to do a cervical spine MRI. Unaware of what facility does this type of MRI. You will need to contact other facilities to check. [facility] 36on 02-14-2025 36 Chintan Strong; [facility] Clinical Support Staff3 weeks ago Can someone call an MRI department and see if there is such a procedure where a patient is given a short term sedative hypnotic like Versed to do a cervical spine MRI. Unaware of what facility does this type of MRI. You will need to contact other facilities to check. Normal [facility] CULTURE, URINE, ROUTINEon Bacteria identified Cx Nom (U) SEE NOTE Abnormal [facility] Comment on above: Result Comment: CULTURE, URINE, ROUTINE Micro Number: [id number] Test Status: Final Specimen Source: Urine Specimen Quality: Adequate Result: Greater than 100,000 CFU/mL of Escherichia coli E.coli INT ASHLEY AMOX/CLAVULANATE S <=2 AMP/SULBACTAM S <=2 CEFAZOLIN NR <=4 2 CEFEPIME S <=0.12 CEFTAZIDIME S <=1 CEFTRIAXONE S <=0.25 CIPROFLOXACIN S <=0.06 GENTAMICIN S <=1 IMIPENEM S <=0.25 LEVOFLOXACIN S <=0.12 MEROPENEM S <=0.25 NITROFURANTOIN S <=16 PIP/TAZOBACTAM S <=4 TRIMETHOPRIM/SULFA S <=20 S = Susceptible I = Intermediate R = Resistant NS = Not susceptible SDD = Susceptible Dose Dependent * = Not Tested NR = Not Reported NN = See Therapy Comments THERAPY COMMENTS Note 1: For infections other than uncomplicated UTI caused by E. coli, K. pneumoniae or P. mirabilis: Cefazolin is resistant if ASHLEY > or = 8 mcg/mL. (Distinguishing susceptible versus intermediate for isolates with ASHLEY < or = 4 mcg/mL requires additional testing.) Note 2: For uncomplicated UTI caused by E. coli, K. pneumoniae or P. mirabilis: Cefazolin is susceptible if ASHLEY <32 mcg/mL and predicts susceptible to the oral agents cefaclor, cefdinir, cefpodoxime, cefprozil, cefuroxime, cephalexin and loracarbef. Performed By: #### 3 95, 7909 #### [facility] [place] [address] Assistant Superintendent For Curriculum: Tylre Mcrae MD REFLEXIVE URINE CULTUREon REFLEXIVE URINE CULTURE Normal [facility] Comment on above: Result Comment: CULT URE INDICATED - RESULTS TO FOLLOW Performed By: #### 3 , 7909 #### [facility] [place] [address] Assistant Superintendent For Curriculum: Tyler Mcrae MD URINALYSIS, COMPLETE W/REFLE X TO CULTUREon 02-10-2025 Appearance (U) CLEAR Normal CLEAR [facility] Comment on above: Performed By: #### 3 95, 7909 #### [facility] [place] [address] Assistant Superintendent For Curriculum: Tyler Mcrae MD BACTERIA MANY Abnormal NONE SEEN [facility] Comment on above: Performed By: #### 3 95, 7909 #### [facility] [place] [address] Assistant Superintendent For Curriculum: Tyler Mcrae MD Bilirubin Ql (U) Negative Normal NEGATIVE [facility] Comment on above: Performed By: #### 3 95, 7909 #### [facility] [place] [address] Assistant Superintendent For Curriculum: Tyler Mcrae MD Color (U) YELLOW Normal YELLOW [facility] Comment on above: Performed By: #### 3 95, 7909 #### [facility] [place] [address] Assistant Superintendent For Curriculum: Tyler Mcrae MD Glucose Ql (U) Negative Normal NEGATIVE [facility] Comment on above: Performed By: #### 3 95, 7909 #### [facility] [place] [address] Assistant Superintendent For Curriculum: Tyler Mcrae MD HYALINE CAST 6-10 Abnormal NONE SEEN [facility] Comment on above: Performed By: #### 3 95, 7909 #### [facility] [place] [address] Assistant Superintendent For Curriculum: Tyler Mcrae MD Ketones Ql (U) Negative Normal NEGATIVE [facility] Comment on above: Performed By: #### 3 95, 7909 #### [facility] [place] [address] Assistant Superintendent For Curriculum: Tyler Mcrae MD Leukocyte esterase Test strip Ql (U) 2+ Abnormal NEGATIVE [facility] Comment on above: Performed By: #### 3 95, 7909 #### [facility] [place] [address] Assistant Superintendent For Curriculum: Tyler Mcrae MD Nitrite Ql (U) Positive Abnormal NEGATIVE [facility] Comment on above: Performed By: #### 3 95, 7909 #### [facility] [place] [address] Assistant Superintendent For Curriculum: Tyler Mcrae MD NOTE Normal [facility] Comment on above: Result Comment: This urine was analyzed for the presence of WBC, RBC, bacteria, casts, and other formed elements. Only those elements seen were reported. Performed By: #### 3 95, 7909 #### [facility] of [address], [address] [place] [address] Assistant Superintendent For Curriculum: Tyler Mcrae MD OCCULT BLOOD Negative Normal NEGATIVE [facility] Comment on above: Performed By: #### 3 95, 7909 #### [facility] of [address], [address] [place] [address] Assistant Superintendent For Curriculum: Tyler Mcrae MD pH (U) 6.5 [pH] Normal 5.0-8.0 [facility] Comment on above: Performed By: #### 3 95, 7909 #### [facility] of [place] [address] Assistant Superintendent For Curriculum: Tyler Mcrae MD Protein Ql (U) Negative Normal NEGATIVE [facility] Comment on above: Performed By: #### 3 95, 7909 #### [facility] of [place] [address] Assistant Superintendent For Curriculum: Tyler Mcrae MD RBC NONE SEEN Normal < OR = 2 [facility] Comment on above: Performed By: #### 3 95, 7909 #### [facility] of [place] [address] Assistant Superintendent For Curriculum: Tyler Mcrae MD Specific gravity (U) [Rel density] 1.010 Normal 1.001-1.035 [facility] Comment on above: Performed By: #### 3 95, 7909 #### [facility] of [place] [address] Assistant Superintendent For Curriculum: Tyler Mcrae MD SQUAMOUS EPITHELIAL CELLS 0-5 Normal < OR = 5 [facility] Comment on above: Performed By: #### 3 95, 7909 #### [facility] of [place] [address] Assistant Superintendent For Curriculum: Tyler Mcrae MD WBC 10-20 Abnormal < OR = 5 [facility] Comment on above: Performed By: #### 3 95, 7909 #### [facility] of [address] [place] [address] Assistant Superintendent For Curriculum: Tyler Mcrae MD Basic metabolic 2000 panelon 02-08-2025 Anion gap [Moles/Vol] 16 mmol/L Normal 10-20 [facility] Comment on above: Performed By: #### 2 4321-2 #### GABINO Velarde ([id number]) [facility] ([facility]) [address] [place] [address] Calcium [Mass/Vol] 9.8 mg/dL Normal 8.6-10.6 [facility] Comment on above: Performed By: #### 2 4321-2 #### GABINO PETERSON L ([id number]) [facility] ([facility]) [id number] [place] [address] Chloride [Moles/Vol] 102 mmol/L Normal 98-107 [facility] Comment on above: Performed By: #### 2 4321-2 #### GABINO PETERSON L ([id number]) [facility] ([facility]) [address] [place] [address] CO2 [Moles/Vol] 27 mmol/L Normal 21-32 [facility] Comment on above: Performed By: #### 2 4321-2 #### GABINO PETERSON L ([id number]) [facility] ([facility]) [address] [place] [address] Creatinine [Mass/Vol] 0.59 mg/dL Normal 0.50-1.05 [facility] Comment on above: Performed By: #### 2 4321-2 #### GABINO PETERSON L ([id number]) [facility] ([facility]) [address] [place] [address] GFR/1.73 sq M.predicted MDRD (S/P/Bld) [Vol rate/Area] mL/min/{1.73_m2} Normal >60 [facility] Comment on above: Result Comment: Calc ulations of estimated GFR are performed using the 2020 CKD-EPI Study Refit equation without the race variable for the IDMS-Traceable creatinine methods. https://jasn.asnjournals.org/content//ASN.2004626 988 Performed By: #### 2 4321-2 #### GABINO Velarde ([id number]) [facility] ([facility]) [id number] [place] [address] Glucose [Mass/Vol] 98 mg/dL Normal 74-99 [facility] Comment on above: Performed By: #### 2 4321-2 #### GABINO Velarde ([id number]) [facility] ([facility]) [id number] [place] [address] Potassium [Moles/Vol] 3.7 mmol/L Normal 3.5-5.3 [facility] Comment on above: Performed By: #### 2 4321-2 #### GABINO Velarde ([id number]) [facility] ([facility]) [id number] [place] [address] Sodium [Moles/Vol] 141 mmol/L Normal 136-145 [facility] Comment on above: Performed By: #### 2 4321-2 #### GABINO Velarde ([id number]) [facility] ([facility]) [address] [place] [address] Urea nitrogen [Mass/Vol] 13 mg/dL Normal 6-23 [facility] Comment on above: Performed By: #### 2 4321-2 #### GABINO Velarde ([id number]) [facility] ([facility]) [id number] [place] [address] CBC panel Auto (Bld)on 02-08 Erythrocyte distribution width (RBC) [Ratio] 12.7 % Normal 11.5-14.5 [facility] Comment on above: Performed By: #### 5 8410-2 #### GABINO PETERSON L ([id number]) [facility] ([facility]) [id number] [place] [address] Hematocrit (Bld) [Volume fraction] 42.6 % Normal 36.0-46.0 [facility] Comment on above: Performed By: #### 5 8410-2 #### GABINO Velarde ([id number]) [facility] ([facility]) [address] [place] [address] Hemoglobin (Bld) [Mass/Vol] 13.3 g/dL Normal 12.0-16.0 [facility] Comment on above: Performed By: #### 5 8410-2 #### GABINO Velarde ([id number]) [facility] ([facility]) [address] [place] [address] MCH (RBC) [Entitic mass] 31.5 pg Normal 26.0-34.0 [facility] Comment on above: Performed By: #### 5 8410-2 #### GABINO Velarde ([id number]) [facility] ([facility]) [address] [place] [address] 85252 MCHC (RBC) [Mass/Vol] 31.2 g/dL Low 32.0-36.0 [facility] Comment on above: Performed By: #### 5 8410-2 #### GABINO Velarde ([id number]) [facility] ([facility]) [address] [place] [address] MCV (RBC) [Entitic vol] 101 fL High 80-100 [facility] Comment on above: Performed By: #### 5 8410-2 #### GABINO Velarde ([id number]) [facility] ([facility]) [address] [place] [address]52 Nucleated RBC/100 WBC (Bld) [Ratio] 0.0 /100 WBCs Normal 0.0-0.0 [facility] Comment on above: Performed By: #### 5 8410-2 #### GABINO Velarde ([id number]) [facility] ([facility]) [address] [place] [address] Platelets (Bld) [#/Vol] 338 x10*3/uL Normal 150-450 [facility] Comment on above: Performed By: #### 5 8410-2 #### GABINO Velarde ([id number]) [facility] ([facility]) [address] [place] [address] RBC (Bld) [#/Vol] 4.22 x10*6/uL Normal 4.00-5.20 [facility] Comment on above: Performed By: #### 5 8410-2 #### GABINO Velarde ([id number]) [facility] ([facility]) [address] [place] [address] WBC (Bld) [#/Vol] 7.5 x10*3/uL Normal 4.4-11.3 [facility] Comment on above: Performed By: #### 5 8410-2 #### GABINO Velarde ([id number]) [facility] ([facility]) [address] [place] [address] Office Visiton 02-08-2025 Follow-up visit [id number] Jamaica Hsu 1960 F [facility] Provider Department [place] 02/08/2025 [id number] ALEJANDRO [facility] Family History Problem Relation Age of Onset Cervical cancer Mother 29 Rheum arthritis Mother Diabetes Mother Comments: diet cont, alive age 84 Heart failure Mother Kidney disease Father Comments: stroke Dementia Father Comments: age 87 in 06/24 Atrial fibrillation Father Melanoma Father Diabetes Sister Comments: oral rx and insulin Multiple sclerosis Sister Cervical cancer Sister COPD Sister Comments: smoker Heart attack Sister Comments: alive age 63 Parkinsonism Sister Comments: alive age 56 Alcohol abuse Sister Comments: not close Cervical cancer Sister No Known Problems Daughter Clotting disorder Son Other Son Comments: POTS Other Cousin Comments: Spinal musc atrophy, age 8 months Pes cavus Other Family Status - Relation Status Age at Mother Alive Father Sister Alive Sister Alive Daughter Son Cousin Other Level of Service:99811 [place] OFFICE/OUTPATIENT ESTABLISHED LOW MDM 20 MIN Reason for Visit and Comments: Follow-up [965127] - Statement of health verification and health status Normal [facility] Progress Noteon 02-08-2025 Progress Note [facility] [place] [address] [place] [address] Visit type: Established Patient Reason for Visit: Follow-up (Statement of health verification and health status ) Assessment / Plan: Anca was seen today for follow-up. Diagnoses and all orders for this visit: Encounter for physical examination related to employment (Primary) Other migraine without status migrainosus, not intractable MCTD (mixed connective tissue disease) (HCC) Complex regional pain syndrome type 1 of right lower extremity Other irritable bowel syndrome Comments: Worsening, GI recommend trial of increasing BuSpar to 5 mg 3 times a day Other orders - busPIRone (Buspar) 5 MG tablet; Take 1 tablet (5 mg) by mouth 2 times daily for 540 doses. 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 Obtain chest x-ray for tuberculosis screening in late July Subjective: Patient ID: Anca Hsu is a 64 y.o. female. 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 Recently saw GI for follow-up on IBS and they recommend increasing buspirone to 5 mg 3 times daily. Review of Systems no constitutional symptoms. Weight has been stable. No new cardiac or pulmonary concerns. No change in her bowels otherwise. Not due for any endoscopies. Of note she does not get breast cancer screening. 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 Has stable migraine treatment. Issues with chronic right leg pain due to her complex regional pain syndrome but reasonably controlled with gabapentin and clonidine. Allergies Allergen Reactions Lidocaine Anaphylaxis Other reaction(s): Unknown Moxifloxacin Swelling and Anaphylaxis Lips and tongue swelling and eye lid Hale Hives, Itching, Shortness of breath and Dermatitis Other reaction(s): Dermatitis, shortness of breath Hale Nuts Shortness of breath Bupivacaine Other reaction(s): anaphylaxis Bupivacaine Hcl Other reaction(s): anaphylaxis Chlorhexidine Other reaction(s): petichiae rash Latex Other reaction(s): hives Other reaction(s): hives Meperidine Other reaction(s): Other (See Comments) Mental sx Meperidine Hcl Other reaction(s): ? Procaine Other reaction(s): anaphylaxis Sucralfate Other reaction(s): Other (See Comments) Skin came off in mouth Sulfa Antibiotics Sulfamethoxazole Ultrasound Gel Hives and Itching Blue Dyes (Parenteral) Hives and Itching Wound Dressings Rash Current Outpatient Medications on File Prior to Visit Medication Sig Dispense Refill acetaminophen (Tylenol) 500 MG tablet Take by mouth. Alpha-Lipoic Acid 600 MG capsule Take 600 mg by mouth. Ascorbic Acid (vitamin C) 1000 MG tablet Take 1,000 mg by mouth in the morning and 1,000 mg in the evening. biotin 10 MG capsule Every 24 hours. CALCIUM PO Take 1,200 mg by mouth daily. cloNIDine (Catapres) 0.1 MG tablet TAKE 1 TABLET BY MOUTH EVERY DAY 90 tablet 1 cycloSPORINE (Restasis) 0.05 % ophthalmic emulsion Administer 1 drop into both eyes every 12 hours. estradiol (Estrace) 0.1 MG/GM vaginal cream Place 1 gm sized amount vaginally nightly for 2 weeks and then 3 times a week thereafter. gabapentin (Neurontin) 300 MG capsule TAKE 1 CAPSULE BY MOUTH THREE TIMES DAILY 90 capsule 2 hydrocortisone (Anusol-HC) 25 MG suppository Insert 1 suppository (25 mg) into the rectum 2 times daily. 12 suppository 1 hydroxychloroquine (Plaquenil) 200 MG tablet Take 200 mg by mouth Nightly. Takes 100 mg in am Magnesium 400 MG capsule Take 400 mg by mouth daily. Multiple Vitamin (Multi Vitamin) tablet Every 24 hours. ondansetron (Zofran) 8 MG tablet Take 1 tablet (8 mg) by mouth every 8 hours as needed for nausea or vomiting. 20 tablet 2 SUMAtriptan (Imitrex) 100 MG tablet TAKE 1 TABLET BY MOUTH at on set of headache, may repeat in 2 hours if needed. no more than 4 tablets per week 9 tablet 5 UNABLE TO FIND Take 6,000 mg by mouth in the morning and 6,000 mg in the evening. Collagen . vit A,C and B-ytvwuj-bpyvyjun (Ocuvite) tablet [DISCONTINUED] baclofen (Lioresal) 10 MG tablet 10 mg tab compounded to be taken vaginally q day 30 tablet 2 [DISCONTINUED] busPIRone (Buspar) 5 MG tablet Take 1 tablet (5 mg) by mouth 2 times daily for 540 doses. 180 tablet 1 No current facility-administered medications on file prior to visit. Patient Active Problem List Diagnosis Fatty liver Osteoarthritis of right hip Lumbar degenerative disc disease Migraine headache Hearing aid worn Complex regional pain syndrome type 1 of right lower extremity Varicose veins of right lower extremity Lumbar foraminal stenosis History of depression Family history of diabetes mellitus (DM) Ex-smoker Fibromyalgia Osteopen (more content not included)... Normal [facility] AMBEROVdennis 01-09-2025 [facility] Office Visit (AGPOB3 ) -- ANCA HSU ([id number]) 1960 F Date Time Provider Department 01/09/25 8:15 AM PILO LUDWIG JR AGPOB3 During your visit today, we recorded the following information about you: Respiration Weight Height 18/minute 54.4 kg 1.626 m Pilo Ludwig Jr., MD 01/09/2025 8:55 AM Signed 01/09/2025 :1960 Anca Hsu HISTORY OF CHIEF COMPLAINT: The patient complains of pain at the base of the right thumb. There was no recent injury or traumatic event that preceded the symptoms. There is pain with any forceful gripping or grasping motion of the hand. Specifically there is pain when taking lids off a jars or even turning doorknobs. The patient denies any numbness or tingling and otherwise has no complaints today. PAST MEDICAL HISTORY Diagnosis Date CRPS (complex regional pain syndrome type I) right hip and leg; RLQ Depression Fibromyalgia Generalized anxiety disorder Kidney stones Migraine headache without aura OAB (overactive bladder) Osteoarthritis of multiple joints Post traumatic stress disorder (PTSD) PAST SURGICAL HISTORY Procedure Laterality Date COLONOSCOPY 2018 Diverticulosis, hemorrhoids and colon polyps DERMABRASION REGIONAL OTHER THAN FACE Right 2019 GASTRIC BYPASS HX 2019 L'SCOPE CHOLECYSTECTOMY 2020 L'SCOPE DX W/WO BRUSHINGS/WASHINGS x 3 for endometriosis in the LIGATE FALLOPIAN TUBE 1986 PAST SURGICAL HISTORY OF 1998 Tubal reversal PAST SURGICAL HISTORY OF 2020 Removal of vaginal mesh TOTAL HIP REPLACEMENT Right 12/2019 VAGINAL HYSTERECTOMY 2019 ovaries remain; bladder sling, rectocele repair Social History Tobacco Use Smoking status: Former Current packs/day: 0.00 Types: Cigarettes Start date: 1971 Quit date: 1991 Years since quittin.2 Smokeless tobacco: Never Vaping Use Vaping status: Never Used Substance Use Topics Alcohol use: Yes Comment: occasional social occasion-rare Drug use: Never Medications: Current Outpatient Medications Medication Sig Dispense Refill baclofen 10 mg diazePAM 10 mg lidocaine 2% vaginal suppository (CPD) Use 1 Suppository vaginally daily at bedtime. cycloSPORINE (RESTASIS) 0.05 % ophthalmic emulsion Use 1 Drop in both eyes two times a day. 180 Each 0 cyanocobalamin, vitamin B-12, (VITAMIN B-12 ORAL) Take by mouth. busPIRone (BUSPAR) 5 mg tablet Take 1 tablet (5 mg) by mouth 2 times daily for 60 doses. hydrOXYchloroQUINE (PLAQUENIL) 200 mg tablet Take 1.5 tablets (300 mg) by mouth once daily. CALCIUM CARBONATE ORAL Take 1,200 mg by mouth once daily. cetirizine (ZYRTEC) 10 mg tablet Take 10 mg by mouth once daily. mometasone (ELOCON) 0.1 % ointment APPLY TO AFFECTED AREA TOPICALLY EVERY DAY hydrocortisone (ANUSOL-HC) 25 mg suppository 25 mg by RECTAL route as needed. COLLAGEN MISC 6,000 mg two times a day. folic acid 800 mcg tablet Take 800 mcg by mouth two times a week. Takes twice per day BIOTIN ORAL Take 1 tablet by mouth once daily. Pt states she takes 5000mg Multivitamin capsule Take 1 capsule by mouth once daily. Ascorbic Acid 1,000 mg tablet Take 1,000 mg by mouth twice daily. Alpha Lipoic Acid 600 mg cap Take 600 mg by mouth twice daily. cloNIDine HCl (CATAPRES) 0.1 mg tablet Take 0.1 mg by mouth daily at bedtime. ondansetron (ZOFRAN) 8 mg tablet Take 8 mg by mouth every 8 hours as needed. SUMAtriptan (IMITREX) 100 mg tablet One stat and repeat in 2 hours , no more than 4 per week nortriptyline (PAMELOR) 10 mg capsule TAKE 1-2 CAPSULE ORALLY AT BEDTIME (Patient not taking: Reported on 06/13/2024) gabapentin (NEURONTIN) 300 mg capsule Take 300 mg by mouth three times a day. No current facility-administered medications for this visit. ALLERGIES Allergen Reactions Demoral [Meperidine] Anaphylaxis Hale Nut Rash, Hives, Itching, Shortness of Breath Bupivacaine Hcl Anaphylaxis Adhesive Tape (Maura* Rash Rash and blisters, Surgical glue as well Blue Dye Hives Ultrasound gel Carafate [Sucralfat* Other: See Comments Oral skin sloughing Chlorhexidine Other: See Comments Petechiae, blisters Latex Other: See Comments Patient is allergic to the powder in latex gloves; develops blisters Lidocaine Anaphylaxis Marcaine [Bupivacai* Anaphylaxis Moxifloxacin Swelling Eye drop form, eye, tongue and lips swelling Novacaine [Procaine] Anaphylaxis Sulfa (Sulfonamide * Rash Tree Nuts Anaphylaxis Walnuts [place] Anaphylaxis Resp 18 Ht 162.6 cm (5' 4) Wt 54.4 kg (120 lb) BMI 20.60 kg/m? PHYSICAL EXAMINATION: General: Anca is a well developed, well nourished adult Psyche: Anca is alert and oriented and cooperative to our examination Skin: Skin condition is healthy without rashes or erythema. Cadiovascular: There is a palpable radial pulse and brisk cap refill distally. Neck: Supple with no JVD Lymph: There (more content not included)... Normal [facility] US ABDOMEN COMPLETEon 2024 US ABDOMEN COMPLETE Interpreted By: Giuliano Noel, STUDY: US ABDOMEN COMPLETE; 01/01/2025 10:55 am INDICATION: 64 y/o F with Signs/Symptoms:SEE DX. ,K58.9 Irritable bowel syndrome, unspecified,K76.0 Fatty (change of) liver, not elsewhere classified COMPARISON: None. ACCESSION NUMBER(S): [id number] ORDERING CLINICIAN: GABINO LUIS TECHNIQUE: Routine ultrasound of the abdomen was performed. Static images were obtained for remote interpretation. FINDINGS: LIVER: Craniocaudal length: 15.3 cm, Within normal limits of size for age Echogenicity: Normal. Mass: None. BILE DUCTS: Intrahepatic ducts: Non-dilated Common bile duct diameter: 4 mm GALLBLADDER: Surgically absent. PANCREAS: Visualized portions are unremarkable. SPLEEN: Craniocaudal length: 10.2 cm, Within normal limits of size for age. No focal splenic lesion. RIGHT KIDNEY: Craniocaudal length: 10.6 cm, Within normal limits of size for age. No hydronephrosis, hydroureter or focal renal lesion. Multiple hyperechoic foci measuring up to 4 mm. LEFT KIDNEY: Craniocaudal length: 11.8 cm, Within normal limits of size for age. No hydronephrosis, hydroureter or focal renal lesion. Multiple hyperechoic foci measuring up to 4 mm. ABDOMINAL AORTA AND IVC: Visualized portions are unremarkable. PERITONEAL FLUID: None. IMPRESSION: Nonobstructive nephrolithiasis. No hydronephrosis. Status post cholecystectomy. MACRO: None Signed by: Giuliano Calderon 01/01/2025 5:49 PM Dictation workstation: [id number] [facility] XR CERVICAL SPINE COMPLETE 4 -5 VIEWSon 01-01-2025 XR CERVICAL SPINE COMPLETE 4-5 VIEWS Interpreted By: Krishna Byrne, STUDY: XR CERVICAL SPINE COMPLETE 4-5 VIEWS; ; 01/01/2025 11:24 am INDICATION: Signs/Symptoms:PAINFUL RUE. ,M79.601 Pain in right arm,G89.29 Other chronic pain COMPARISON: None. ACCESSION NUMBER(S): [id number] ORDERING CLINICIAN: KORY ALEJANDRO FINDINGS: Cervical spine, four views There is moderate multilevel disc space narrowing with osteophytosis in the mid to lower cervical spine worse at C6-7. There is mild facet disease. There is no fracture. There is no spondylolisthesis. The neural foramina are patent IMPRESSION: Moderate spondylotic changes in the mid to lower cervical spine worse at C6-7. No acute abnormality MACRO: None Signed by: Krishna Byrne 01/01/2025 6:07 PM Dictation workstation: [id number] [facility] XR SHOULDER RIGHT 2+ VIEWSon 01-01-2025 XR SHOULDER RIGHT 2+ VIEWS Interpreted By: Krishna Byrne, STUDY: XR SHOULDER RIGHT 2+ VIEWS; ; 01/01/2025 11:24 am INDICATION: Signs/Symptoms:PAINFUL SHOULDER. ,M25.511 Pain in right shoulder,G89.29 Other chronic pain COMPARISON: None. ACCESSION NUMBER(S): [id number] ORDERING CLINICIAN: KORY ALEJANDRO FINDINGS: Right shoulder, three views There is no fracture. There is no dislocation. There are no degenerative changes. There is no lytic or sclerotic lesion. There is no soft tissue abnormality seen. IMPRESSION: Normal radiographs of the right shoulder MACRO: None Signed by: Krishna Byrne 01/01/2025 5:39 PM Dictation workstation: [id number] [facility] Marnie 12-07-2024 CNPN Telephone (NREUS2) -- ANCA HSU ([id number]) 1960 F Date Time Provider Department 12/07/24 RUFINA MARCOS NREUS2 During your visit today, we recorded the following information about you: Rufina Marcos, Research Coordinator 12/07/2024 1:26 PM Signed Self referred patient interested in research stduy. 12.07.2024: called and spoke with Anca about the research study. Mentioned to patient that the study is currently on an enrollment hold but we would contact her once enrollment is back up and going. Patient agreed to that. Patient also agreed to have informed consent form sent to her via email for her to review while waiting for enrollment to start back up Allergies As of Date: 12/07/2024 Noted Allergy Reaction DEMORAL (MEPERIDINE) 10/01/2015 10 - Anaphylaxis PINE NUT 11/01/1969 2 - Rash 4 - Hives 9 - Itching 12 - Shortness of Breath BUPIVACAINE HCL 07/18/2020 10 - Anaphylaxis ADHESIVE TAPE (ROSINS) 10/01/2015 2 - Rash Comments: Rash and blisters, Surgical glue as well BLUE DYE 07/01/2022 4 - Hives Comments: Ultrasound gel CARAFATE (SUCRALFATE) 07/01/2022 14 - Other: See Comments Comments: Oral skin sloughing CHLORHEXIDINE 07/01/2022 14 - Other: See Comments Comments: Petechiae, blisters LATEX 06/24/2022 14 - Other: See Comments Comments: Patient is allergic to the powder in latex gloves; develops blisters LIDOCAINE 08/03/2023 10 - Anaphylaxis MARCAINE (BUPIVACAINE) 07/01/2022 10 - Anaphylaxis MOXIFLOXACIN 06/18/2023 7 - Swelling Comments: Eye drop form, eye, tongue and lips swelling NOVACAINE (PROCAINE) 07/01/2022 10 - Anaphylaxis SULFA (SULFONAMIDE ANTIBIOTICS) 07/01/2022 2 - Rash TREE NUTS 07/03/2022 10 - Anaphylaxis Comments: Walnuts WALNUT 07/10/2022 10 - Anaphylaxis Date Reviewed: 06/13/2024 Reviewed by: Sabrina Magana MA - Fully Assessed Reason for Visit: Research [[id number]] Cmt: [id number] Effects of Ketamine on Pain Learning Prescriptions as of 12/07/2024 - cycloSPORINE (RESTASIS) 0.05 % ophthalmic emulsion Use 1 Drop in both eyes two times a day. - cyanocobalamin, vitamin B-12, (VITAMIN B-12 ORAL) Take by mouth. - busPIRone (BUSPAR) 5 mg tablet Take 1 tablet (5 mg) by mouth 2 times daily for 60 doses. - hydrOXYchloroQUINE (PLAQUENIL) 200 mg tablet Take 1.5 tablets (300 mg) by mouth once daily. - CALCIUM CARBONATE ORAL Take 1,200 mg by mouth once daily. - nortriptyline (PAMELOR) 10 mg capsule TAKE 1-2 CAPSULE ORALLY AT BEDTIME - cetirizine (ZYRTEC) 10 mg tablet Take 10 mg by mouth once daily. - mometasone (ELOCON) 0.1 % ointment APPLY TO AFFECTED AREA TOPICALLY EVERY DAY - hydrocortisone (ANUSOL-HC) 25 mg suppository 25 mg by RECTAL route as needed. - COLLAGEN MISC 6,000 mg two times a day. - folic acid 800 mcg tablet Take 800 mcg by mouth two times a week. Takes twice per day - BIOTIN ORAL Take 1 tablet by mouth once daily. Pt states she takes 5000mg - Multivitamin capsule Take 1 capsule by mouth once daily. - Ascorbic Acid 1,000 mg tablet Take 1,000 mg by mouth twice daily. - Alpha Lipoic Acid 600 mg cap Take 600 mg by mouth twice daily. - cloNIDine HCl (CATAPRES) 0.1 mg tablet Take 0.1 mg by mouth daily at bedtime. - gabapentin (NEURONTIN) 300 mg capsule Take 300 mg by mouth twice daily. - ondansetron (ZOFRAN) 8 mg tablet Take 8 mg by mouth every 8 hours as needed. - SUMAtriptan (IMITREX) 100 mg tablet One stat and repeat in 2 hours , no more than 4 per week Meds Comments as of 06/16/2023: She is using Preservative Free Artificial tears . Problem List As Of Date 12/07/2024 Noted Resolved Plantar fascial fibromatosis [M72.2] 12/26/2021 Calcaneal spur of right foot [M77.31] 12/26/2021 Migraine headache without aura [G43.009] 05/21/2023 Combined forms of age-related cataract of both *06/11/2023 06/11/2023 Reflex sympathetic dystrophy of right leg [G90.*01/25/2024 Encounter Status:Closed by RUFINA MARCOS on 12/07/24 Normal [facility] Bacteria identifiedon 2023 Bacteria identified Cx Nom (U) Test: Urine Culture Specimen Source: Clean Catch/Voided Specimen Type: Urine Specimen Date: 10/30/2024 1640 Result Date: 11/02/2024 1216 Result Status: Final result Abnormal: Yes Resulting Lab: [facility] [address] [place] [address] CULTURE >=100,000 CFU/mL Escherichia coli (Abnormal) SUSCEPTIBILITY Escherichia coli METHOD MICROSCAN --------- AMPICILLIN <=8.000 ug/ml Susceptible CEFAZOLIN <=2 ug/ml Susceptible CEFAZOLIN (UNCOMPLICATED UTIS ONLY) <=2 ug/ml Susceptible CIPROFLOXACIN <=0.250 ug/ml Susceptible GENTAMICIN <=2.000 ug/ml Susceptible NITROFURANTOIN <=32 ug/ml Susceptible PIPERACILLIN/TAZOBACTAM <=8.000 ug/ml Susceptible TRIMETHOPRIM/SULFAMETHOXAZ OLE <=2/38 ug/ml Susceptible Abnormal [facility] Comment on above: Performed By: #### 6 30-4 #### GABINO Velarde ([id number]) [facility] ([facility]) [address] [place] [address] Bacteria identifiedon 2023 Bacteria identified Cx Nom (U) Test: Urine Culture Specimen Source: Clean Catch/Voided Specimen Type: Urine Specimen Date: 10/26/2024 0900 Result Date: 10/28/2024 145 Result Status: Final result Abnormal: No Resulting Lab: [facility] [address] [place], [place] [id number] CULTURE Growth indicates contamination with mixed bacterial jose. Repeat culture if clinically indicated. Normal [facility] Comment on above: Performed By: #### 6 30-4 #### GABINO Velarde ([id number]) [facility] ([facility]) [address] [place] [address] Basic metabolic 2000 panelon 10-23-2024 Anion gap [Moles/Vol] 15 mmol/L Normal 10-20 [facility] Comment on above: Performed By: #### 2 4321-2 #### GABINO Velarde ([id number]) [facility] ([facility]) [address] [place] [address]344 Calcium [Mass/Vol] 9.5 mg/dL Normal 8.6-10.6 [facility] Comment on above: Performed By: #### 2 4321-2 #### GABINO Velarde ([id number]) [facility] ([facility]) [address] [place] [address]443 Chloride [Moles/Vol] 107 mmol/L Normal 98-107 [facility] Comment on above: Performed By: #### 2 4321-2 #### GABINO Velarde ([id number]) [facility] ([facility]) [address] [place] [address] 27647 CO2 [Moles/Vol] 26 mmol/L Normal 21-32 [facility] Comment on above: Performed By: #### 2 4321-2 #### GABINO Velarde ([id number]) [facility] ([facility]) [address] [place] [address] Creatinine [Mass/Vol] 0.54 mg/dL Normal 0.50-1.05 [facility] Comment on above: Performed By: #### 2 4321-2 #### GABINO Velarde ([id number]) [facility] ([facility]) [id number] [place] [address] GFR/1.73 sq M.predicted MDRD (S/P/Bld) [Vol rate/Area] mL/min/{1.73_m2} Normal >60 [facility] Comment on above: Result Comment: Calc ulations of estimated GFR are performed using the 2020 CKD-EPI Study Refit equation without the race variable for the IDMS-Traceable creatinine methods. https://jasn.asnjournals.org/content/early/ASN.8317089 988 Performed By: #### 2 4321-2 #### GABINO Velarde ([id number]) [facility] ([facility]) [id number] [place] [address]323 Glucose [Mass/Vol] 92 mg/dL Normal 74-99 [facility] Comment on above: Performed By: #### 2 4321-2 #### GABINO Velarde ([id number]) [facility] ([facility]) [id number] [place] [address]29 Potassium [Moles/Vol] 3.7 mmol/L Normal 3.5-5.3 [facility] Comment on above: Performed By: #### 2 4321-2 #### GABINO PETERSON L ([id number]) [facility] ([facility]) [id number] [place] [address] 03745 Sodium [Moles/Vol] 144 mmol/L Normal 136-145 [facility] Comment on above: Performed By: #### 2 4321-2 #### GABINO Velarde ([id number]) [facility] ([facility]) [id number] [place] [address] 62309 Urea nitrogen [Mass/Vol] 12 mg/dL Normal 6-23 [facility] Comment on above: Performed By: #### 2 4321-2 #### GABINO Velarde ([id number]) [facility] ([facility]) [address] [place] [address] C peptideon 10-23-2024 C peptide [Mass/Vol] 1.3 ng/mL Normal 0.7-3.9 [facility] Comment on above: Performed By: #### 1 986-9 #### GABINO Velarde ([id number]) [facility] ([facility]) [id number] [place] [address]046 Insulinon 10-23-2024 Insulin Qn 9 u[IU]/mL Normal 3-25 [facility] Comment on above: Order Comment: Refer ence values apply to fasting specimens. Performed By: #### 2 0448-7 #### GABINO Velarde ([id number]) [facility] [facility] ([facility]) [id number] [place] [address] Proinsulin^post 12H CFston 1 12-24-2023 Proinsulin post 12 Hr fast [Moles/Vol] <2.0 Normal <=7.2 [facility] Comment on above: Result Comment: Perf ormed By: [facility] [address] [place] [address] 22575 Founder And Ceo: Allan Dawson MD, PhD CLIA Number: [id number] Performed By: #### 2 4323-8 #### GABINO Velarde ([id number]) [facility] ([facility]) [id number] [place] [address] 16080 Thyroxine.freeon 10-23-2024 Free T4 [Mass/Vol] 1.13 ng/dL Normal 0.78-1.48 [facility] Comment on above: Order Comment: Thyro xine Free testing is performed using different testing methodology at [facility] than at other [facility]. Direct result comparisons should only be made within the same method. Performed By: #### 3 024-7 #### GABINO Velarde ([id number]) [facility] ([facility]) [address] [place] [address] Triiodothyronineon 4 T3 [Mass/Vol] 83 ng/dL Normal 60-200 [facility] Comment on above: Performed By: #### 3 053-6 #### GABINO Velarde ([id number]) [facility] ([facility]) [address] [place] 1980[address] XR HIP RIGHT WITH PELVIS WHE N PERFORMED 2 OR 3 VIEWSon 10-19-2024 XR HIP RIGHT WITH PELVIS WHEN PERFORMED 2 OR 3 VIEWS Interpreted By: Krishna Byrne, STUDY: XR HIP RIGHT WITH PELVIS WHEN PERFORMED 2 OR 3 VIEWS; ; 10/19/2024 10:27 am INDICATION: Signs/Symptoms:pain. ,Z96.641 Presence of right artificial hip joint COMPARISON: 08/11/2024 ACCESSION NUMBER(S): [id number] ORDERING CLINICIAN: NORMAN JUARES FINDINGS: Right hip, three views Right total hip arthroplasty in place. There is no periprosthetic fracture or lucency. There is no dislocation. Mild osteophytosis in the left hip. IMPRESSION: No hardware failure about the right total hip arthroplasty MACRO: None Signed by: Krishna Byrne 10/20/2024 10:12 PM Dictation workstation: [id number] [facility] XR KNEE RIGHT 3 VIEWSon 10-01 XR KNEE RIGHT 3 VIEWS Interpreted By: Krishna Byrne, STUDY: XR KNEE RIGHT 3 VIEWS; ; 10/19/2024 10:27 am INDICATION: Signs/Symptoms:pain. ,M25.561 Pain in right knee COMPARISON: None. ACCESSION NUMBER(S): [id number] ORDERING CLINICIAN: NORMAN JUARES FINDINGS: Right knee, three views There is mild osteophytosis in the medial compartment. The lateral and patellofemoral compartments are within normal limits. There is no effusion seen. There is no fracture or dislocation seen IMPRESSION: Mild medial compartment osteoarthritis. MACRO: None Signed by: Krishna Byrne 10/20/2024 10:09 PM Dictation workstation: [id number] [facility] Bacteria identifiedon 2023 Bacteria identified Cx Nom (U) Test: Urine Culture Specimen Source: Clean Catch/Voided Specimen Type: Urine Specimen Date: 09/21/2024844 Result Date: 09/24/2024901 Result Status: Final result Abnormal: Yes Resulting Lab: [facility] [address] [place] [address] CULTURE >100,000 Escherichia coli (Abnormal) SUSCEPTIBILITY Escherichia coli METHOD MICROSCAN --------- AMPICILLIN <=8.000 ug/ml Susceptible CEFAZOLIN <=2 ug/ml Susceptible CEFAZOLIN (UNCOMPLICATED UTIS ONLY) <=2 ug/ml Susceptible CIPROFLOXACIN <=0.250 ug/ml Susceptible GENTAMICIN <=2.000 ug/ml Susceptible NITROFURANTOIN <=32 ug/ml Susceptible PIPERACILLIN/TAZOBACTAM <=8.000 ug/ml Susceptible TRIMETHOPRIM/SULFAMETHOXAZ OLE <=2/38 ug/ml Susceptible Abnormal [facility] Comment on above: Performed By: #### 6 30-4 #### GABINO Velarde ([id number]) [facility] ([facility]) [address] [place] [address] C reactive proteinon 024 CRP [Mass/Vol] mg/L Normal <1.00 [facility] Comment on above: Performed By: #### 1 988-5 #### GABINO Velarde ([id number]) [facility] ([facility]) [address] [place], [place] [address] CBC W Auto Differential pane l (Bld)on 09-19-2024 Basophils (Bld) [#/Vol] 0.05 x10*3/uL Normal 0.00-0.10 [facility] Comment on above: Performed By: #### 5 7021-8 #### GABINO Velarde ([id number]) [facility] ([facility]) [address] [place] [address] 00152 Basophils/100 WBC (Bld) 0.9 % Normal 0.0-2.0 [facility] Comment on above: Performed By: #### 5 7021-8 #### GABINO Velarde ([id number]) [facility] ([facility]) [address] [place] [address] 54796 Eosinophils (Bld) [#/Vol] 0.17 x10*3/uL Normal 0.00-0.70 [facility] Comment on above: Performed By: #### 5 7021-8 #### GABINO Velarde ([id number]) [facility] ([facility]) [address] [place] [address] 95119 Eosinophils/100 WBC (Bld) 3.1 % Normal 0.0-6.0 [facility] Comment on above: Performed By: #### 5 7021-8 #### GABINO Velarde ([id number]) [facility] ([facility]) [address] [place] [address] 62568 Erythrocyte distribution width (RBC) [Ratio] 12.6 % Normal 11.5-14.5 [facility] Comment on above: Performed By: #### 5 7021-8 #### GABINO Velarde ([id number]) [facility] ([facility]) [address] [place] [address] 03571 Hematocrit (Bld) [Volume fraction] 35.1 % Low 36.0-46.0 [facility] Comment on above: Performed By: #### 5 7021-8 #### GABINO Velarde ([id number]) [facility] ([facility]) [address] [place] [address] 31876 Hemoglobin (Bld) [Mass/Vol] 11.1 g/dL Low 12.0-16.0 [facility] Comment on above: Performed By: #### 5 7021-8 #### GABINO Velarde ([id number]) [facility] ([facility]) [address] [place] [address] 29218 Immature granulocytes (Bld) [#/Vol] 0.01 x10*3/uL Normal 0.00-0.70 [facility] Comment on above: Performed By: #### 5 7021-8 #### GABINO Velarde ([id number]) [facility] ([facility]) [address] [place] [address] 19925 Immature granulocytes/100 WBC (Bld) 0.2 % Normal 0.0-0.9 [facility] Comment on above: Result Comment: Lizzy ture Granulocyte Count (IG) includes promyelocytes, myelocytes and metamyelocytes but does not include bands. Percent differential counts (%) should be interpreted in the context of the absolute cell counts (cells/UL). Performed By: #### 5 7021-8 #### GABINO Velarde ([id number]) [facility] ([facility]) [address] [place] [address] 90117 Lymphocytes (Bld) [#/Vol] 1.67 x10*3/uL Normal 1.20-4.80 [facility] Comment on above: Performed By: #### 5 7021-8 #### GABINO Velarde ([id number]) [facility] ([facility]) [address] [place] [address] 63664 Lymphocytes/100 WBC (Bld) 30.7 % Normal 13.0-44.0 [facility] Comment on above: Performed By: #### 5 7021-8 #### GABINO Velarde ([id number]) [facility] ([facility]) [address] [place] [address] 00605 MCH (RBC) [Entitic mass] 31.1 pg Normal 26.0-34.0 [facility] Comment on above: Performed By: #### 5 7021-8 #### GABINO Velarde ([id number]) [facility] ([facility]) [address] [place] [address] 18425 MCHC (RBC) [Mass/Vol] 31.6 g/dL Low 32.0-36.0 [facility] Comment on above: Performed By: #### 5 7021-8 #### GABINO Velarde ([id number]) [facility] ([facility]) [address] [place] [address] MCV (RBC) [Entitic vol] 98 fL Normal 80-100 [facility] Comment on above: Performed By: #### 5 7021-8 #### GABINO Velarde ([id number]) [facility] ([facility]) [address] [place] [address] 19363 Monocytes (Bld) [#/Vol] 0.63 x10*3/uL Normal 0.10-1.00 [facility] Comment on above: Performed By: #### 5 7021-8 #### GABINO Velarde ([id number]) [facility] ([facility]) [address] [place] [address] 57145 Monocytes/100 WBC (Bld) 11.6 % Normal 2.0-10.0 [facility] Comment on above: Performed By: #### 5 7021-8 #### GABINO Velarde ([id number]) [facility] ([facility]) [address] [place] [address] 28916 Neutrophils (Bld) [#/Vol] 2.91 x10*3/uL Normal 1.20-7.70 [facility] Comment on above: Result Comment: Perc ent differential counts (%) should be interpreted in the context of the absolute cell counts (cells/uL). Performed By: #### 5 7021-8 #### GABINO Velarde ([id number]) [facility] ([facility]) [address] [place] [address] 62028 Neutrophils/100 WBC (Bld) 53.5 % Normal 40.0-80.0 [facility] Comment on above: Performed By: #### 5 7021-8 #### GABINO Velarde ([id number]) [facility] ([facility]) [address] [place] [address] 51179 Nucleated RBC/100 WBC (Bld) [Ratio] 0.0 /100 WBCs Normal 0.0-0.0 [facility] Comment on above: Performed By: #### 5 7021-8 #### GABINO Velarde ([id number]) [facility] ([facility]) [address] [place] [address] Platelets (Bld) [#/Vol] 257 x10*3/uL Normal 150-450 [facility] Comment on above: Performed By: #### 5 7021-8 #### GABINO Velarde ([id number]) [facility] ([facility]) [address] [place] [address] 60546 RBC (Bld) [#/Vol] 3.57 x10*6/uL Low 4.00-5.20 [facility] Comment on above: Performed By: #### 5 7021-8 #### GABINO Velarde ([id number]) [facility] ([facility]) [address] [place] [address] 49076 WBC (Bld) [#/Vol] 5.4 x10*3/uL Normal 4.4-11.3 [facility] Comment on above: Performed By: #### 5 7021-8 #### GABINO Velarde ([id number]) [facility] ([facility]) [address] [place] [address] 85635 Comprehensive metabolic 2000 panelon 09-19-2024 Albumin BCP dye [Mass/Vol] 4.3 g/dL Normal 3.4-5.0 [facility] Comment on above: Performed By: #### 2 4323-8 #### GABINO Velarde ([id number]) [facility] ([facility]) [id number] [place] [address] 68564 ALP [Catalytic activity/Vol] 72 U/L Normal 33-136 [facility] Comment on above: Performed By: #### 2 4323-8 #### GABINO Velarde ([id number]) [facility] ([facility]) [address] [place] [address] 40043 ALT With P-5'-P [Catalytic activity/Vol] 45 U/L Normal 7-45 [facility] Comment on above: Result Comment: Tiffany ents treated with Sulfasalazine may generate falsely decreased results for ALT. Performed By: #### 2 4323-8 #### GABINO Velarde ([id number]) [facility] ([facility]) [address] [place] [address] Anion gap [Moles/Vol] 10 mmol/L Normal 10-20 [facility] Comment on above: Performed By: #### 2 4323-8 #### GABINO Velarde ([id number]) [facility] ([facility]) [address] [place] [address] 46828 AST With P-5'-P [Catalytic activity/Vol] 39 U/L Normal 9-39 [facility] Comment on above: Performed By: #### 2 4323-8 #### GABINO Velarde ([id number]) [facility] ([facility]) [address] [place] [address] 65713 Bilirubin [Mass/Vol] 0.3 mg/dL Normal 0.0-1.2 [facility] Comment on above: Performed By: #### 2 4323-8 #### GABINO Velarde ([id number]) [facility] ([facility]) [address] [place] [address] Calcium [Mass/Vol] 9.1 mg/dL Normal 8.6-10.6 [facility] Comment on above: Performed By: #### 2 4323-8 #### GABINO Velarde ([id number]) [facility] ([facility]) [address] [place] [address] Chloride [Moles/Vol] 106 mmol/L Normal 98-107 [facility] Comment on above: Performed By: #### 2 4323-8 #### GABINO Velarde ([id number]) [facility] ([facility]) [address] [place] [address] 68941 CO2 [Moles/Vol] 31 mmol/L Normal 21-32 [facility] Comment on above: Performed By: #### 2 4323-8 #### GABINO Velarde ([id number]) [facility] ([facility]) [address] [place] [address] Creatinine [Mass/Vol] 0.49 mg/dL Low 0.50-1.05 [facility] Comment on above: Performed By: #### 2 4323-8 #### GABINO Velarde ([id number]) [facility] ([facility]) [address] [place] [address] 51003 GFR/1.73 sq M.predicted MDRD (S/P/Bld) [Vol rate/Area] mL/min/{1.73_m2} Normal >60 [facility] Comment on above: Result Comment: Calc ulations of estimated GFR are performed using the 2020 CKD-EPI Study Refit equation without the race variable for the IDMS-Traceable creatinine methods. https://jasn.asnjournals.org/content/early/ASN.9692797 988 Performed By: #### 2 4323-8 #### GABINO Velarde ([id number]) [facility] ([facility]) [address] [place] [address] 45766 Glucose [Mass/Vol] 85 mg/dL Normal 74-99 [facility] Comment on above: Performed By: #### 2 4323-8 #### GABINO Velarde ([id number]) [facility] ([facility]) [address] [place] [address] 88473 Potassium [Moles/Vol] 4.1 mmol/L Normal 3.5-5.3 [facility] Comment on above: Performed By: #### 2 4323-8 #### GABINO Velarde ([id number]) [facility] ([facility]) [address] [place] [address] Protein [Mass/Vol] 6.2 g/dL Low 6.4-8.2 [facility] Comment on above: Performed By: #### 2 4323-8 #### GABINO Velarde ([id number]) [facility] ([facility]) [address] [place] [address] 28812 Sodium [Moles/Vol] 143 mmol/L Normal 136-145 [facility] Comment on above: Performed By: #### 2 4323-8 #### GABINO Velarde ([id number]) [facility] ([facility]) [address] [place] [address] 62597 Urea nitrogen [Mass/Vol] 10 mg/dL Normal 6-23 [facility] Comment on above: Performed By: #### 2 4323-8 #### GABINO Velarde ([id number]) [facility] ([facility]) [address] [place] [address] 58434 ESR Westergren method (Bld) [Velocity]on 09-19-2024 ESR (Bld) [Velocity] mm/h Normal 0-30 [facility] Comment on above: Performed By: #### 4 537-7 #### TRISTEN JULIEN ([id number]) [facility] ([facility]) [address] [place] [address] 02913 XR HIP RIGHT WITH PELVIS WHE N PERFORMED 2 OR 3 VIEWSon 08-11-2024 XR HIP RIGHT WITH PELVIS WHEN PERFORMED 2 OR 3 VIEWS Interpreted By: Krishna Byrne, STUDY: XR HIP RIGHT WITH PELVIS WHEN PERFORMED 2 OR 3 VIEWS; ; 08/11/2024 1:48 pm INDICATION: Signs/Symptoms:OSTEOARTHRI TIS. ,M16.11 Unilateral primary osteoarthritis, right hip COMPARISON: 01/20/2023 ACCESSION NUMBER(S): [id number] ORDERING CLINICIAN: NORMAN DURON FINDINGS: Right hip, three views Total hip arthroplasty in place. There is no periprosthetic fracture or lucency. There is no dislocation. Mild degenerative change the left hip IMPRESSION: No hardware failure about the right total hip arthroplasty MACRO: None Signed by: Krishna Byrne 08/12/2024 8:12 AM Dictation workstation: [id number] [facility] ECG 12-LEADon 01-04-2024 ECG 12-LEAD Ventricular Rate 86 Atrial Rate 86 P-R Interval 128 QRS Duration 80 Q-T Interval 358 QTC Calculation(Bazett) 428 P Kunkle 73 R Kunkle 74 T Kunkle 59 QRS Count 14 Q Onset 222 P Onset 158 P Offset 210 T Offset 401 QTC Fredericia 403 Diagnosis Normal sinus rhythm Normal ECG When compared with ECG of 05-JAN-2023 13:43, Nonspecific T wave abnormality no longer evident in Inferior leads Confirmed by Hunter Fontenot ([id number]) on 01/07/2024 2:31:11 PM Normal [facility] XR HIP RIGHT 2-3 VIEW W PELV Janey 09-05-2023 XR HIP RIGHT 2-3 VIEW W PELVIS EXAM DESCRIPTION: One x-ray view of the pelvis into x-ray views of the right hip CLINICAL HISTORY: ARTHRITIS right hip pain Comparison: None Findings: Right total hip replacement is present. Prosthetic components are in satisfactory position with no sign of hardware loosening or malfunction. There is no fracture. Alignment of the right hip is normal. Bones of the pelvis are unremarkable. Left hip is remarkable for bilateral acetabular spur formation. Left hip joint space is maintained. IMPRESSION: Right total hip replacement with no sign of complication. Electronically signed by: Joselo Claudio MD 09/05/2023 08:12 AM EST Technologist: TSR Dictated By: JOSELO CLAUDIO MD Signed By: JOSELO CLAUDIO MD Signed Out: 09/05/23 08:12:40 Normal [facility] CBC AND DIFFERENTIALon 07-30 % AUTOMATED IMMATURE GRAN 0.3 % Normal 0.0 - 0.9 [facility] Comment on above: Result Comment: Lizzy ture Granulocyte Count (IG) includes promyelocytes, myelocytes and metamyelocytes but does not include bands. Percent differential counts (%) should be interpreted in the context of the absolute cell counts (cells/L). Performed By: #### C BCDF #### [facility] [address] [place] [address] Basophils (Bld) [#/Vol] 0.06 10*3/uL Normal 0.00 - 0.10 [facility] Comment on above: Performed By: #### C BCDF #### [facility] [address] [place] [address] Basophils/100 WBC (Bld) 1.6 % Normal 0.0 - 2.0 [facility] Comment on above: Performed By: #### C BCDF #### [facility] [address] [place] [address] Eosinophils (Bld) [#/Vol] 0.10 10*3/uL Normal 0.00 - 0.70 [facility] Comment on above: Performed By: #### C BCDF #### [facility] [address] [place] [address] Eosinophils/100 WBC (Bld) 2.6 % Normal 0.0 - 6.0 [facility] Comment on above: Performed By: #### C BCDF #### [facility] [address] [place] [address] Erythrocyte distribution width (RBC) [Ratio] 13.1 % Normal 11.5 - 14.5 [facility] Comment on above: Performed By: #### C BCDF #### [facility] [address] [place] [address] Hematocrit (Bld) [Volume fraction] 40.4 % Normal 36.0 - 46.0 [facility] Comment on above: Performed By: #### C BCDF #### [facility] [address] [place] [address] Hemoglobin (Bld) [Mass/Vol] 12.6 g/dL Normal 12.0 - 16.0 [facility] Comment on above: Performed By: #### C BCDF #### [facility] [address] [place] [address] Lymphocytes (Bld) [#/Vol] 1.26 10*3/uL Normal 1.20 - 4.80 [facility] Comment on above: Performed By: #### C BCDF #### [facility] [address] [place] [address] Lymphocytes/100 WBC (Bld) 32.6 % Normal 13.0 - 44.0 [facility] Comment on above: Performed By: #### C BCDF #### [facility] [address] [place] [address] MCHC (RBC) [Mass/Vol] 31.2 g/dL Low 32.0 - 36.0 [facility] Comment on above: Performed By: #### C BCDF #### [facility] [address] [place] [address] MCV (RBC) [Entitic vol] 99 fL Normal 80 - 100 [facility] Comment on above: Performed By: #### C BCDF #### [facility] [address] [place] [address] Monocytes (Bld) [#/Vol] 0.48 10*3/uL Normal 0.10 - 1.00 [facility] Comment on above: Performed By: #### C BCDF #### [facility] [address] [place] [address] Monocytes/100 WBC (Bld) 12.4 % Normal 2.0 - 10.0 [facility] Comment on above: Performed By: #### C BCDF #### [facility] [address] [place] [address] Neutrophils (Bld) [#/Vol] 1.96 10*3/uL Normal 1.20 - 7.70 [facility] Comment on above: Performed By: #### C BCDF #### [facility] [address] [place] [address] Neutrophils/100 WBC (Bld) 50.5 % Normal 40.0 - 80.0 [facility] Comment on above: Performed By: #### C BCDF #### [facility] [address] [place] [address] NUCLEATED RBC 0.0 /100 WBC Normal 0.0-0.0 [facility] Comment on above: Performed By: #### C BCDF #### [facility] [address] [place] [address] Platelets (Bld) [#/Vol] 331 10*3/uL Normal 150 - 450 [facility] Comment on above: Performed By: #### C BCDF #### [facility] [address] [place] [address] RBC 4.10 x10E12/L Normal 4.00 - 5.20 [facility] Comment on above: Performed By: #### C BCDF #### [facility] [address] [place] [address] WBC (Bld) [#/Vol] 3.9 10*3/uL Low 4.4 - 11.3 [facility] Comment on above: Performed By: #### C BCDF #### [facility] [address] [place] [address] COMPREHENSIVE PANELon 2022 Albumin [Mass/Vol] 4.5 g/dL Normal 3.4 - 5.0 [facility] Comment on above: Performed By: #### C MP #### [facility] [address] [place] [address] ALP [Catalytic activity/Vol] 86 U/L Normal 33 - 136 [facility] Comment on above: Performed By: #### C MP #### [facility] [address] [place] [address] ALT [Catalytic activity/Vol] 32 U/L Normal 7 - 45 [facility] Comment on above: Result Comment: Tiffany ents treated with Sulfasalazine may generate falsely decreased results for ALT. Performed By: #### C MP #### [facility] [address] [place] [address] Anion gap [Moles/Vol] 12 mmol/L Normal 10 - 20 [facility] Comment on above: Performed By: #### C MP #### [facility] [address] [place] [address] AST [Catalytic activity/Vol] 28 U/L Normal 9 - 39 [facility] Comment on above: Performed By: #### C MP #### [facility] [address] [place] [address] Bilirubin [Mass/Vol] 0.3 mg/dL Normal 0.0 - 1.2 [facility] Comment on above: Performed By: #### C MP #### [facility] [address] [place] [address] Calcium [Mass/Vol] 9.7 mg/dL Normal 8.6 - 10.6 [facility] Comment on above: Performed By: #### C MP #### [facility] [address] [place] [address] Chloride [Moles/Vol] 105 mmol/L Normal 98 - 107 [facility] Comment on above: Performed By: #### C MP #### [facility] [facility] [address] [place] [address] Creatinine [Mass/Vol] 0.53 mg/dL Normal 0.50 - 1.05 [facility] Comment on above: Performed By: #### C MP #### [facility] [address] [place] [address] eGFR FEMALE >90 Normal >90 [facility] Comment on above: Result Comment: CALC ULATIONS OF ESTIMATED GFR ARE PERFORMED USING THE 2020 CKD-EPI STUDY REFIT EQUATION WITHOUT THE RACE VARIABLE FOR THE IDMS-TRACEABLE CREATININE METHODS. https://jasn.asnjournals.org/content/early//ASN.9668583 988 Performed By: #### C MP #### [facility] [address] [place] [address] Glucose [Mass/Vol] 77 mg/dL Normal 74 - 99 [facility] Comment on above: Performed By: #### C MP #### [facility] [address] [place] [address] HCO3 (Bld) [Moles/Vol] 31 mmol/L Normal 21 - 32 [facility] Comment on above: Performed By: #### C MP #### [facility] [address] [place] [address] Potassium [Moles/Vol] 4.0 mmol/L Normal 3.5 - 5.3 [facility] Comment on above: Performed By: #### C MP #### [facility] [address] [place] [address] Protein [Mass/Vol] 7.1 g/dL Normal 6.4 - 8.2 [facility] Comment on above: Performed By: #### C MP #### [facility] [address] [place] [address] Sodium [Moles/Vol] 144 mmol/L Normal 136 - 145 [facility] Comment on above: Performed By: #### C MP #### [facility] [address] [place] [address] Urea nitrogen [Mass/Vol] 14 mg/dL Normal 6 - 23 [facility] Comment on above: Performed By: #### C MP #### [facility] [address] [place] [address] Complete Blood Count + Diffe mateo 07-30-2023 Basophils/100 WBC (Bld) 1.6 % 0.0 - 2.0 WN-Nuosmcc-H [facility]laCor[facility] [employer] [facility] [address] Work Phone: [phone] Erythrocyte distribution width (RBC) [Ratio] 13.1 % See Below OL-Xhonave-S [facility]laCor[facility] [employer] [facility] [address] Work Phone: Comment on above: Reference Range: 11. 5 - 14.5 Hematocrit (Bld) [Volume fraction] 40.4 % See Below MO-Gnykcwz-O [facility]laCor[facility] [employer] [facility] [address] Work Phone: Comment on above: Reference Range: 36. 0 - 46.0 Hemoglobin (Bld) [Mass/Vol] 12.6 g/dL See Below FL-Fugibpy-T [facility]laCor[facility] [employer] [facility] [address] Work Phone: Comment on above: Reference Range: 12. 0 - 16.0 Lymphocytes/100 WBC (Bld) 32.6 % See Below BH-Cvtuetb-T estFunguy [employer] [facility] [address] Work Phone: Comment on above: Reference Range: 13. 0 - 44.0 MCHC (RBC) [Mass/Vol] 31.2 g/dL below low threshold See Below NN-Xmxatzn-V [employer]laCorban [employer] [facility] [address] Work Phone: Comment on above: Reference Range: 32. 0 - 36.0 MCV (RBC) [Entitic vol] 99 fL 80 - 100 KG-Bofmjfg-V [facility]laCorban [employer] [facility] [address] Work Phone: [phone] Monocytes/100 WBC (Bld) 12.4 % 2.0 - 10.0 AD-Ligeipd-T [facility]laCor[facility] [employer] [facility] [address] Work Phone: [phone] Neutrophils/100 WBC (Bld) 50.5 % See Below AR-Opjszzl-D estlabenedicto [facility] [address] Work Phone: [phone] Comment on above: Reference Range: 40. 0 - 80.0 Platelets (Bld) [#/Vol] 331 10*3/uL 150 - 450 QO-Zxtyhcr-P antonia [facility] [address] Work Phone: [phone] RBC (Bld) [#/Vol] 4.10 {x10E12/L} See Below MG -Urology-W antonia [facility] [address] Work Phone: [phone] Comment on above: Reference Range: 4.0 0 - 5.20 WBC (Bld) [#/Vol] 3.9 10*3/uL below low threshold 4.4 - 11.3 PK-Flbahnw-P [place]ia [facility] [address] Work Phone: [phone] Complete Blood Count + Differential 0.06 {x10E9/L} See Below RL-Ldddmny-O ninowibenedicto [facility] [address] Work Phone: [phone] Comment on above: Reference Range: 0.0 0 - 0.10 Complete Blood Count + Differential 0.10 {x10E9/L} See Below YB-Yhtnrgr-C ninowibenedicto [facility] [address] Work Phone: [phone] Comment on above: Reference Range: 0.0 0 - 0.70 Complete Blood Count + Differential 0.48 {x10E9/L} See Below NN-Lecfuqb-R ninowibenedicto [facility] [address] Work Phone: Comment on above: Reference Range: 0.1 0 - 1.00 Complete Blood Count + Differential 1.26 {x10E9/L} See Below LH-Wgdrspn-Z an[place]ia [facility] [address] Work Phone: Comment on above: Reference Range: 1.2 0 - 4.80 Complete Blood Count + Differential 1.96 {x10E9/L} See Below LG-Iqovfoz-O [place] [facility] [address] Work Phone: Comment on above: Reference Range: 1.2 0 - 7.70 Complete Blood Count + Differential 2.6 % 0.0 - 6.0 AC-Fthqxnz-Y [facility] [address] Work Phone: Complete Blood Count + Differential 0.3 % 0.0 - 0.9 TY[facility]vcdk[facility] [address] Work Phone: Comment on above: Immature Granulocyte Count (IG) includes promyelocytes, myelocytes and metamyelocytes but does not include bands. Percent differential counts (%) should be interpreted in the context of the absolute cell counts (cells/L). Complete Blood Count + Differential 0.0 {/100_WBC} 0.0-0.0 HQ[facility]pqvyyn[facility] [address] Work Phone: FOLATE, SERUMon 07-30-2023 Folate [Mass/Vol] ng/mL Normal >5.0 [facility] Comment on above: Result Comment: Low <3.4 Borderline 3.4-5.0 Normal >5.0 . Biotin interference may cause falsely elevated results. Patients taking a Biotin dose of up to 5 mg/day should refrain from taking Biotin for 24 hours before sample collection. Providers may contact their local laboratory for further information. Performed By: #### F OLA2 #### [facility] [address] [place] [address] Folate, Serumon 07-30-2023 Folate [Mass/Vol] ng/mL >5.0 MG[facility]rol ogy[facility] [address] Work Phone: Comment on above: Low <3.4Borderline 3 .4-5.0Normal >5.0. Biotin interference may cause falsely elevated results. Patients taking a Biotin dose of up to 5 mg/day should refrain from taking Biotin for 24 hours before sample collection. Providers may contact their local laboratory for further information. IRON + TIBCon 07-30-2023 % SATURATION 13 % Low 25 - 45 [facility] Comment on above: Performed By: #### I RONT #### [facility] [address] [place] [address] Iron [Mass/Vol] 58 ug/dL Normal 35 - 150 [facility] Comment on above: Performed By: #### I RONT #### [facility] [address] [place] [address] TIBC 437 ug/dL Normal 240 - 445 [facility] Comment on above: Performed By: #### Carlo MCCRACKEN #### [facility] [address] [place] [address] Laboratory - Chemistry and C hemistry - challengeon 07-30-2023 Albumin BCP dye [Mass/Vol] 4.5 g/dL 3.4 - 5.0 DR-Jzoznjn-Y [place] [facility] [address] Work Phone: [phone] ALP [Catalytic activity/Vol] 86 U/L 33 - 136 CZ-Pmazyzw-W [place] [address]15701 Work Phone: [phone] ALT With P-5'-P [Catalytic activity/Vol] 32 U/L 7 - 45 UE-Tbwanhl-E [place] [facility] [address] Work Phone: Comment on above: Patients treated wit h Sulfasalazine may generate falsely decreased results for ALT. Anion gap [Moles/Vol] 12 mmol/L 10 - 20 WM-Qxxkiaz-B [place] [facility] [address] Work Phone: AST With P-5'-P [Catalytic activity/Vol] 28 U/L 9 - 39 TB-Tkkaodo-R [place] [facility] [address] Work Phone: Bilirubin [Mass/Vol] 0.3 mg/dL 0.0 - 1.2 MG-U rology-W [place] [facility] [address] Work Phone: Calcium [Mass/Vol] 9.7 mg/dL 8.6 - 10.6 MG-Uro logy-W [place] [facility] [address] Work Phone: Chloride [Moles/Vol] 105 mmol/L 98 - 107 MG-U rology-W [place] [facility] [address] Work Phone: CO2 [Moles/Vol] 31 mmol/L 21 - 32 [facility] [address] Work Phone: Creatinine [Mass/Vol] 0.53 mg/dL See Below ZD[facility]pbmku[facility] [address] Work Phone: Comment on above: Reference Range: 0.5 0 - 1.05 Glucose [Mass/Vol] 77 mg/dL 74 - 99 MG-Uro logy-W estlabenedicto [facility] [address] Work Phone: Iron [Mass/Vol] 58 ug/dL 35 - 150 MG-Urolog y-[place] 1227201 Work Phone: Iron binding capacity [Mass/Vol] 437 ug/dL 240 - 445 YH-Wdjpbwd-I [place] 1227201 Work Phone: Potassium [Moles/Vol] 4.0 mmol/L 3.5 - 5.3 [place]-Lecnbwe-H [place] [address]01 Work Phone: Protein [Mass/Vol] 7.1 g/dL 6.4 - 8.2 MG-Uro logy-W [place] 7644101 Work Phone: Sodium [Moles/Vol] 144 mmol/L 136 - 145 MG-Uro logy-W [place] 7644101 Work Phone: Urea nitrogen [Mass/Vol] 14 mg/dL 6 - 23 TR-Dtzusda-D [place] 7644101 Work Phone: MAGNESIUMon 07-30-2023 Magnesium [Mass/Vol] 2.55 mg/dL High 1.60 - 2.40 [facility] Comment on above: Performed By: #### M G #### [facility] [address] [place] [address] Magnesium, Serumon 3 Magnesium [Mass/Vol] 2.55 mg/dL above high threshold See Below ZL[facility]icmwsq[facility] [address] Work Phone: Comment on above: Reference Range: 1.6 0 - 2.40 No Panel Informationon 07-30 >90 >90 QU-Zxbtohk-L [place] 1227201 Work Phone: Comment on above: CALCULATIONS OF LEW MATED GFR ARE PERFORMED USING THE 2020 CKD-EPI STUDY REFIT EQUATION WITHOUT THE RACE VARIABLE FOR THE IDMS-TRACEABLE CREATININE METHODS.https://jasn.asnjournals.org/content//ASN .9163738215 13 % below low threshold 25 - 45 SD-Djgaluu-Q [place] [facility] [address] Work Phone: VITAMIN B12on 07-30-2023 Cobalamin (Vitamin B12) [Mass/Vol] 391 pg/mL Normal 211 - 911 [facility] Comment on above: Performed By: #### V TB12 #### [facility] [address] [place] [address] Vitamin B12, Serumon 023 Cobalamin (Vitamin B12) [Mass/Vol] 391 pg/mL 211 - 911 WF-Fkrwdjn-K [place] [facility] [address] Work Phone: IO UA (automated w/o microsc opy)on 07-29-2023 Protein (U) [Mass/Vol] Negative DX-Rgmjlwj-E [place] [facility] [address] Work Phone: IO UA (automated w/o microscopy) Negative GG-Qodxfir-R [place] [facility] [address] Work Phone: IO UA (automated w/o microscopy) Normal (0.2-1.0 mg/dl) MG-Urolog y-W [place] [facility] [address] Work Phone: IO UA (automated w/o microscopy) 6.0 1 BX-Vevdpsc-F [place] [facility] [address] Work Phone: IO UA (automated w/o microscopy) 1.020 1 HY-Qdguger-V [place] [facility] [address] Work Phone: IO UA (automated w/o microscopy) Clear HR-Moxhekh-L [place] [facility] [address] Work Phone: IO UA (automated w/o microscopy) Yellow FJ-Qttoqwa-W [place] [facility] [address] Work Phone: [facility] Visit [facility]o n 07-29-2023 Follow-up visit Diagnoses/Problems Assessed Urinary frequency (788.41) (R35.0) 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 Stage IV prolapse, 1a. POP-Q 07/22/22: Aa: -3. Ba: -3 C: -8 Gh: 1.5. Pb: 3.5 TVL: 9 Ap: -3. Bp: -3. 1b. s/p robotic TLH, BSO sacrocolpopexy, midurethral sling, posterior repair, perineoplasty 06/2020 1c. POP-Q 11/14/20: Aa: -3. Ba: -3 C: -7 Gh: 2. Pb: 4 TVL: 9 Ap: -3. Bp: -3. (mesh erosion noted on this exam) 1d. s/p robotic excision of sacrocolpopexy mesh on 03/25/21 2. UUI confirmed on UDS - refractory to myrbetriq and trospium 20 mg QD 2a. s/p cystoscopy and intradetrusor Botox injections 100 units 01/12/23 2b. s/p cystoscopy and intradetrusor Botox injections 200 units 07/20/23 3. Nephrolithiasis 3a. Bilateral hydronephrosis, no obstructing stones on CTU 02/03/22 and 10/23/21 4. CRPS 5. Iatrophobia 6. Pelvic pain - started PFPT 02/18/22 Today's Visit: Last seen by myself in the OR 07/20/23 for intradetrusor cystoscopic Botox injection 200 units. 62 y/o female presents for follow-up of her symptoms. She reports that she has been doing well since Botox, and she has had 100% improvement in frequency and incontinence. She had some difficulty voiding last week that has now resolved. Prior to Botox injections, her NTF 3-4x. Currently, NTF x0. Her family member near [place] recently . Refer to allergies section of this note for allergies. Patient is a former smoker. Plan: She declined PVR today. I would like her to call us if she has UTI symptoms. We discussed how long Botox may last for her before symptoms regress. She reports that she had trouble getting previously for black discharge, so I would like her to call Janine or Lisbeth if she has any questions or concerns, and she may ask to speak with me if she has difficulty making an appointment. She could also contact us via [employer] after EPIC transition. F/u 6 months. All questions and concerns were addressed. Patient verbalizes understanding and has no other questions at this time. IKelsy, am scribing for and in the presence of Dr. Barbosa. I, Flip Barbosa, agree that all documentation by the scribe, Kelsy Abrams, was under my direction and is an accurate representation of the discussion, physical exam, assessment and plan. Chief Complaint POV History of Present Illness Testing results: PVR results not available and UA results not available. 1. Stage IV prolapse, 1a. POP-Q 07/22/22: Aa: -3. Ba: -3 C: -8 Gh: 1.5. Pb: 3.5 TVL: 9 Ap: -3. Bp: -3. 1b. s/p robotic TLH, BSO sacrocolpopexy, midurethral sling, posterior repair, perineoplasty 06/2020 1c. POP-Q 11/14/20: Aa: -3. Ba: -3 C: -7 Gh: 2. Pb: 4 TVL: 9 Ap: -3. Bp: -3. (mesh erosion noted on this exam) 1d. s/p robotic excision of sacrocolpopexy mesh on 03/25/21 2. UUI confirmed on UDS - refractory to myrbetriq and trospium 20 mg QD 2a. s/p cystoscopy and intradetrusor Botox injections 100 units 01/12/23 2b. s/p cystoscopy and intradetrusor Botox injections 200 units 07/20/23 3. Nephrolithiasis 3a. Bilateral hydronephrosis, no obstructing stones on CTU 02/03/22 and 10/23/21 4. CRPS 5. Iatrophobia 6. Pelvic pain - started PFPT 02/18/22 Today's Visit: Last seen by myself in the OR 07/20/23 for intradetrusor cystoscopic Botox injection 200 units. 62 y/o female presents for follow-up of her symptoms. She reports that she has been doing well since Botox, and she has had 100% improvement in frequency and incontinence. She had some difficulty voiding last week that has now resolved. Prior to Botox injections, her NTF 3-4x. Currently, NTF x0. Her family member near [place] recently . Refer to allergies section of this note for allergies. Patient is a former smoker. Review of Systems Constitutional: No fever, No chills and No fatigue. Eyes: No vision problems and No dryness of the eyes. ENT: No dry mouth, No hearing loss and No nosebleeds. Cardiovascular: No chest pain, No palpitations and No orthopnea. Respiratory: No shortness of breath, No cough and No wheezing. Gastrointestinal: No abdominal pain, No constipation, No nausea, No diarrhea, No vomiting and No melena. Genitourinary: As noted in HPI. Musculoskeletal: No back pain, No myalgias, No muscle weakness, No joint swelling and No leg edema. Integumentary: No rashes, No skin lesion and No itching. Neurological: No headache, No numbness and No dizziness. Psychiatric: No sleep disturbances, No anxiety and No depression. Endocrine: No hot flashes, No loss of hair and No hirsutism. Hematologic/Lymphatic: No swollen glands, No tendency for easy bleeding and No tendency for easy bruising. All other systems have been reviewed and are negative for complaint. Please refer to intake forms, which have been scanned into the chart. Active Problems Problems Abdominal pain, epigastric (789.06) (R10.13) Age-related nuclear cataract of both eyes (366.16) (H25.13) Allergy (995.3) (T78.40XA) Anxiety dis (more content not included)... Normal Touchworks Cult, Urineon 07-07-2023 Bacteria identified Cx Nom (U) PATIENT: ANCA HSU LOCATION: [id number] BILL#: [id number] : 62 AGE: SEX: F ORDERED BY: LFIP BARBOSA SOURCE: URINE Abnormal IS-Paeyzyj-G [place] [address] Work Phone: URINE CULTURE,BACTERIALon URINE CULTURE,BACTERIAL PATIENT: ANCA HSU LOCATION: [facility] BILL#: [id number] : 62 AGE: SEX: F ORDERED BY: FLIP BARBOSA SOURCE: URINE COLLECTED: 07/07/23 07:31 ANTIBIOTICS AT JOSE.: RECEIVED : 07/08/23 01:57 SITE: Clean Catch/Voided R E S U L T S URINE CULTURE,BACTERIAL FINAL 07/12/23 08:58 ISOLATE1 : Aerococcus urinae >100,000 CFU/ML Organism Aero urinae Antibiotic ASHLEY INTRP Penicillin 0.032 S Vancomycin 0.5 S Ciprofloxacin =4.0 R Levofloxacin 2.0 S Ampicillin S S=SUSCEPTIBLE I=INTERMEDIATE R=RESISTANT SDD=SUSCEPTIBLE DOSE DEPENDENT NS=NONSUSCEPTIBLE X=REPORTED IN ERROR Normal [facility] Comment on above: Performed By: #### U [facility] #### [facility] [address] [place] [address] ECG 12 leadon 05-19-2023 [facility] IO UA (automated w/o microsc opy)on 01-28-2023 Protein (U) [Mass/Vol] Negative DJ-Hqwfmny-G [facility]la[facility] [address] Work Phone: IO UA (automated w/o microscopy) Trace LS-Cosihbj-Z estlaCorban [employer] [facility] [address] Work Phone: IO UA (automated w/o microscopy) Negative NP-Vzarujn-I [facility] [facility] [address] Work Phone: IO UA (automated w/o microscopy) Normal (0.2-1.0 mg/dl) MG-Urolog y-W [facility] [address] Work Phone: IO UA (automated w/o microscopy) 6.0 1 NQ-Tszmxgs-M [employer] [facility] [address] Work Phone: IO UA (automated w/o microscopy) 1.025 1 SE-Uboetum-Y [employer]laCor[facility] [employer] [facility] [address] Work Phone: IO UA (automated w/o microscopy) Clear HW-Xccpiog-U [facility] [address] Work Phone: IO UA (automated w/o microscopy) Yellow GH-Ubgysnq-S [employer] [address] Work Phone: IO Ultrasound, measurement p ost-void resid urine and/or bl cap; no imagon 01-28-2023 IO Ultrasound, measurement post-void resid urine and/or bl cap; no imag 225 mL GS-Zjeaeil-J [employer] [address] Work Phone: Office Visit ([facility])o n 01-28-2023 Follow-up visit Diagnoses/Problems Assessed Incomplete emptying of bladder (788.21) (R33.9) Orders Incomplete emptying of bladder IO UA (automated w/o microscopy); Status:Resulted - Requires Verification,Retrospective By Protocol Authorization; Done: 28Jan2023 10:00AM IO Ultrasound, measurement post-void resid urine and/or bl cap; no imag; Status:Resulted - Requires Verification,Retrospective By Protocol Authorization; Done: [id number] 09:50AM Provider Impressions 1. Stage IV prolapse, 1a. POP-Q 07/22/22: Aa: -3. Ba: -3 C: -8 Gh: 1.5. Pb: 3.5 TVL: 9 Ap: -3. Bp: -3. 1b. s/p robotic TLH, BSO sacrocolpopexy, midurethral sling, posterior repair, perineoplasty 06/2020 1c. POP-Q 11/14/20: Aa: -3. Ba: -3 C: -7 Gh: 2. Pb: 4 TVL: 9 Ap: -3. Bp: -3. (mesh erosion noted on this exam) 1d. s/p robotic excision of sacrocolpopexy mesh on 03/25/21 2. UUI confirmed on UDS - refractory to myrbetriq and trospium 20 mg QD 2a. s/p cystoscopy and intradetrusor Botox injections 100 units 01/12/23 3. Nephrolithiasis 3a. Bilateral hydronephrosis, no obstructing stones on CTU 02/03/22 and 10/23/21 4. CRPS 5. Iatrophobia 6. Pelvic pain - started PFPT 02/18/22 Today's Visit: Last seen by myself in the OR 01/12/23. 62 year old female presents for post-operative evaluation s/p cystoscopy and intradetrusor Botox injections 100 units 01/12/23. Her urinary incontinence has improved significantly. She is not waking up at night anymore and she no longer has to wear pull ups. She is very happy with her current symptoms. She is planning an MRI for evaluation of her hip/groin pain and her orthopedist questioned if this may be related to her pelvic organ prolapse repair. She has multiple allergies/adverse reactions, see allergy tab. Denies gross hematuria, dysuria, nocturia, flank pain, and bothersome frequency or urgency. Patient is a former smoker. Plan: PVR today was 225 cc. UA today showed trace leukocytes. We discussed her myofascial pelvic pain. I am doubtful that this is related to her prior pelvic surgery. Her upcoming MRI will help to evaluate if this is related to her hips. I asked her to double void to try to improve bladder emptying. I asked her to call my office if she develops any UTI symptoms. I asked her to follow up with me in 6 months for re-evaluation or sooner as needed. All questions were answered. All questions and concerns were addressed. Patient verbalizes understanding and has no other questions at this time. I, Rafael Sanchez, am scribing for and in the presence of Dr. Barbosa. I, Flip Barbosa, agree that all documentation by the scribe, Rafael Sanchez, was under my direction and is an accurate representation of the discussion, physical exam, assessment and plan. Chief Complaint OAB s/p Botox 01/12/23 History of Present Illness Testing results: PVR results available and reviewed and UA results available and reviewed. 1. Stage IV prolapse, 1a. POP-Q 07/22/22: Aa: -3. Ba: -3 C: -8 Gh: 1.5. Pb: 3.5 TVL: 9 Ap: -3. Bp: -3. 1b. s/p robotic TLH, BSO sacrocolpopexy, midurethral sling, posterior repair, perineoplasty 06/2020 1c. POP-Q 11/14/20: Aa: -3. Ba: -3 C: -7 Gh: 2. Pb: 4 TVL: 9 Ap: -3. Bp: -3. (mesh erosion noted on this exam) 1d. s/p robotic excision of sacrocolpopexy mesh on 03/25/21 2. UUI confirmed on UDS - refractory to myrbetriq and trospium 20 mg QD 2a. s/p cystoscopy and intradetrusor Botox injections 100 units 01/12/23 3. Nephrolithiasis 3a. Bilateral hydronephrosis, no obstructing stones on CTU 02/03/22 and 10/23/21 4. CRPS 5. Iatrophobia 6. Pelvic pain - started PFPT 02/18/22 Today's Visit: Last seen by myself in the OR 01/12/23. 62 year old female presents for post-operative evaluation s/p cystoscopy and intradetrusor Botox injections 100 units 01/12/23. Her urinary incontinence has improved significantly. She is not waking up at night anymore and she no longer has to wear pull ups. She is very happy with her current symptoms. She is planning an MRI for evaluation of her hip/groin pain and her orthopedist questioned if this may be related to her pelvic organ prolapse repair. She has multiple allergies/adverse reactions, see allergy tab. Denies gross hematuria, dysuria, nocturia, flank pain, and bothersome frequency or urgency. Patient is a former smoker. Review of Systems Please refer to intake forms, which have been scanned into the chart. 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 Normal Touchworks HIP, UNILATERAL W/PELVIS WHE N PERFORMED 2-3 VIEWSon 01-20-2023 HIP, UNILATERAL W/PELVIS WHEN PERFORMED 2-3 VIEWS Patient Name: ANCA HSU STUDY: HIP, UNILATERAL W/PELVIS WHEN PERFORMED 2-3 VIEWS; 01/20/2023 10:04 am INDICATION: PRIMARY OSTEOARTHRITIS OF RIGHT HIP. COMPARISON: None. ACCESSION NUMBER(S): [id number] ORDERING CLINICIAN: NORMAN DURON FINDINGS: Four views right hip: Status post right total hip arthroplasty There is good position of the acetabular prosthesis in the chinik acetabulum. There is good position of the femoral head prosthesis in the acetabular prosthesis. There is central position of the femoral stem in the proximal medullary cavity of the right femur. There is no perihardware lucency. There is no fracture or dislocation. There is moderate spurring along the superolateral margin of the left acetabulum with preservation of the joint space. IMPRESSION: Status post right total hip arthroplasty. Electronically signed by: KISHORE MEZA MD Normal [facility] Radiologyon 01-20-2023 XR Pelvis and Hip - left 2 Views Normal LW-Ytfzono-U [place] [address] Work Phone: Order Reconciliationon 01-12 Order Reconciliation Page 1 Discharge Reconciliation Document Reconciliation Type: Discharge requested on behalf of Heather Nunez (Physician) done by Heather Nunez ( (Fellow)) Discharge - Reconciliation: 12-Jan-2023 11:48 by: Heather Nunez ( (Fellow)) Home Medications EnteredHOME MEDICATIONS AT DISCHARGE DateReconciliation Comment/ Additional Information Alpha Lipoic Acid 600 mg oral capsule 1 cap(s) orally 2 times a day 14-Jul-2021 15:23 Alpha Lipoic Acid 600 mg oral capsule 1 cap(s) orally 2 times a day 14-Jul-2021 15:23 Alpha Lipoic Acid 600 mg oral capsule is continued as Alpha Lipoic Acid 600 mg oral capsule Anusol Suppositories 51% rectal suppository (obsolete) 1 suppository(ies) rectal 2 times a day, As Needed 17-Mar-2021 07:49 Anusol Suppositories 51% rectal suppository (obsolete) 1 suppository(ies) rectal 2 times a day, As Needed 17-Mar-2021 07:49 Anusol Suppositories 51% rectal suppository (obsolete) is continued as Anusol Suppositories 51% rectal suppository (obsolete) biotin 49172 microgram(s) orally once a day 04-Jan-2023 15:12 biotin 28137 microgram(s) orally once a day 04-Jan-2023 15:12 biotin is continued as biotin collagen 1 cap(s) orally 2 times a day 05-Jan-2023 13:32 collagen 1 cap(s) orally 2 times a day 05-Jan-2023 13:32 collagen is continued as collagen gabapentin 300 mg oral capsule 1 cap(s) orally 2 times a day 05-Jan-2023 13:33 gabapentin 300 mg oral capsule 1 cap(s) orally 2 times a day 05-Jan-2023 13:33 gabapentin 300 mg oral capsule is continued as gabapentin 300 mg oral capsule Multiple Vitamins oral tablet 1 tab(s) orally once a day 17-Mar-2021 07:47 Multiple Vitamins oral tablet 1 tab(s) orally once a day 17-Mar-2021 07:47 Multiple Vitamins oral tablet is continued as Multiple Vitamins oral tablet ondansetron 8 mg oral tablet orally 3 times a day, As Needed 05-Jan-2023 13:34 ondansetron 8 mg oral tablet orally 3 times a day, As Needed 05-Jan-2023 13:34 ondansetron 8 mg oral tablet is continued as ondansetron 8 mg oral tablet SUMAtriptan 100 mg oral tablet 1 tab(s) orally once, As Needed 04-Jan-2023 15:14 SUMAtriptan 100 mg oral tablet 1 tab(s) orally once, As Needed 04-Jan-2023 15:14 SUMAtriptan 100 mg oral tablet is continued as SUMAtriptan 100 mg oral tablet Tylenol 500 mg oral tablet 2 tab(s) orally every 6 hours, As Needed 04-Jan-2023 15:15 Tylenol 500 mg oral tablet 2 tab(s) orally every 6 hours, As Needed 04-Jan-2023 15:15 Tylenol 500 mg oral tablet is continued as Tylenol 500 mg oral tablet Vitamin C 1000 mg oral tablet 1 tab(s) orally once a day 04-Jan-2023 15:15 Vitamin C 1000 mg oral tablet 1 tab(s) orally once a day 04-Jan-2023 15:15 Vitamin C 1000 mg oral tablet is continued as Vitamin C 1000 mg oral tablet Current OrdersDateHOME MEDICATIONS AT DISCHARGE DateReconciliation Comment/ Additional Information Botulinum Toxin Type A Injectable (BOTOX)DOSE = 100 unit(s) IntraDermal OnceClinician Notes: to O.R. 07-Jan-2023 11:06 Botulinum Toxin Type A Injectable is not required ceFAZolin 2 gram/ D5W 100 mL Premix IVPB (ANCEF)OnceRecommended Infusion Time: 30 minute(s)Clinician Notes: x 1 dose pre-op 07-Jan-2023 11:06 ceFAZolin 2 gram/ D5W 100 mL Premix IVPB is not required fentaNYL Injectable (SUBLIMAZE)DOSE = 25 microgram(s) IntraVenous Push Every 5 Minutes, PRN Pain - Severe (7-10) (PACU) if unable to take oralClinician Notes: Jessica-operative order ONLYMax total of 200 micrograms regardless of dose. 12-Jan-2023 11:20 fentaNYL Injectable is not required fentaNYL Injectable (SUBLIMAZE)DOSE = 50 microgram(s) IntraVenous Push Every 5 Minutes, PRN Pain - Mod (4-6) (PACU) if unable to take oralClinician Notes: Jessica-operative order ONLYMax total of 200 micrograms regardless of dose. 12-Jan-2023 11:20 fentaNYL Injectable is not required HYDROmorphone Injectable (DILAUDID)DOSE = 0.5 mg IntraVenous Push Every 5 Minutes, PRN Pain - Severe (7-10) (PACU)Clinician Notes: Jessica-operative order ONLYMax total of 4 mg regardless of dose. 12-Jan-2023 11:20 HYDROmorphone Injectable is not required Metoclopramide Injectable (REGLAN)DOSE = 10 mg IntraVenous Push Once, PRN PONV, first lineClinician Notes: Jessica-operative order ONLY 12-Jan-2023 11:20 Metoclopramide Injectable is not required oxyCODONE Immediate Release Tablet (OXYIR, ROXICODONE)DOSE = 10 mg Oral Every 4 Hours, PRN Pain - Severe (7-10) (PACU) when able to take oralClinician Notes: Jessica-operative order ONLY 12-Jan-2023 11:20 oxyCODONE Immediate Release is not required oxyCODONE Immediate Release Tablet (OXYIR, ROXICODONE)DOSE = 5 mg Oral Every 4 Hours, PRN Pain - Mod (4-6) (PACU) when able to take OralClinician Notes: Jessica-operative order ONLY 12-Jan-2023 11:20 oxyCODONE Immediate Release is not required Prochlorperazine Injectable (COMPAZINE)DOSE = 5 mg IntraVenous Push Once, PRN persistent post-op nausea/vomitingClinician Notes: Jessica-operat (more content not included)... Normal [facility] Cult, Urineon 01-05-2023 Bacteria identified Cx Nom (U) [facility]bb[facility] [address] Work Phone: Laboratory - Chemistry and C hemistry - challengeon 01-05-2023 Anion gap [Moles/Vol] 11 mmol/L 10 - 20 QM-Accyclt-W [place] [facility] [address] Work Phone: Calcium [Mass/Vol] 9.1 mg/dL 8.6 - 10.3 MG-Uro logy-[place] [id number] Work Phone: Chloride [Moles/Vol] 106 mmol/L 98 - 107 MG-U rology-W an[place] [id number] Work Phone: CO2 [Moles/Vol] 26 mmol/L 21 - 32 MG-Urolog y-W [place] [facility] [address] Work Phone: Creatinine [Mass/Vol] 0.47 mg/dL below low threshold See Below NO-Zppghiv-O ninowike [place] [id number] Work Phone: Comment on above: Reference Range: 0.5 0 - 1.05 Glucose [Mass/Vol] 164 mg/dL above high threshold 74 - 99 FR-Prhkydc-W [place] [id number] Work Phone: Potassium [Moles/Vol] 3.4 mmol/L below low threshold 3.5 - 5.3 AD-Vlfibki-N [place] [id number] Work Phone: Sodium [Moles/Vol] 140 mmol/L 136 - 145 MG-Uro logy-W anton[place] [id number] Work Phone: Urea nitrogen [Mass/Vol] 14 mg/dL 6 - 23 FB-Mzlxade-Q [place] [id number] Work Phone: Laboratory - Hematology and Cell countson 01-05-2023 Erythrocyte distribution width (RBC) [Ratio] 12.6 % See Below QZ-Qszfjpg-Q ninowibenedicto [place] [id number] Work Phone: Comment on above: Reference Range: 11. 5 - 14.5 Hematocrit (Bld) [Volume fraction] 35.4 % below low threshold See Below PG-Tbyvzxy-X estlabenedicto [place] [id number] Work Phone: Comment on above: Reference Range: 36. 0 - 46.0 Hemoglobin (Bld) [Mass/Vol] 11.3 g/dL below low threshold See Below GF-Hooboqo-Y estlabenedicto [place] [id number] Work Phone: Comment on above: Reference Range: 12. 0 - 16.0 MCHC (RBC) [Mass/Vol] 31.9 g/dL below low threshold See Below OM-Ugkxccr-E [place] [id number] Work Phone: Comment on above: Reference Range: 32. 0 - 36.0 MCV (RBC) [Entitic vol] 95 fL 80 - 100 OD-Qnheabk-G estwibenedicto [place] [id number] Work Phone: Platelets (Bld) [#/Vol] 355 10*3/uL 150 - 450 PD-Ritcwxn-S estlabenedicto [place] [id number] Work Phone: RBC (Bld) [#/Vol] 3.73 {x10E12/L} below low threshold See Below SM-Mnmvmtj-Z [place] [id number] Work Phone: Comment on above: Reference Range: 4.0 0 - 5.20 WBC (Bld) [#/Vol] 5.2 10*3/uL 4.4 - 11.3 [facility] [address] Work Phone: No Panel Informationon 01-05 0.0 {/100_WBC} 0.0 - 0.0 MG-Urology -[place] [id number] Work Phone: >90 >90 CF-Wuqyeja-G [place] [id number] Work Phone: Comment on above: CALCULATIONS OF LEW MATED GFR ARE PERFORMED USING THE 2020 CKD-EPI STUDY REFIT EQUATION WITHOUT THE RACE VARIABLE FOR THE IDMS-TRACEABLE CREATININE METHODS.https://jasn.asnjournals.org/content//ASN .0971222647 [email or web address] [email or web address]/jammieweb.[email or web address] ?RetrieveTestByDateTime?Pa bagugOU=[id number]&Date=&Time=13%3a43%3a42% 3a00&TestType=ECG&Site=12& OutputType=PDF&Ext=PDF RV-Zjgtlpi-Q [place] [address] Work Phone: Normal sinus rhythm MG-Ur ology-[place] [address] Work Phone: Abnormal GP-Dgrksjm-A [place] [address] Work Phone: [phone] VI-Cbyzzam-H [place] [address] Work Phone: [phone] JV-Nzwcwkd-S [place] [address] Work Phone: [phone] WE-Gclxcfr-B [place] [address] Work Phone: 158 1 BW-Krnwndr-T [place] [address] Work Phone: [phone] 1 VP-Guxowdp-M [place] [address] Work Phone: 15 1 DW-Xkiisln-E [place] [address] Work Phone: 29 1 JP-Akukwmw-I [place] [address] Work Phone: 67 1 XS-Xzmpomj-W [place] [address] Work Phone: 71 1 VL-Yjyrzay-T [place] [address] Work Phone: [phone] LH-Sfwphmo-X [place] [address] Work Phone: [phone] UC-Jmirunt-S [place] [address] Work Phone: 78 1 RI-Yeojdxb-R [place] [address] Work Phone: 130 1 RQ-Yrmrvhk-C [place] [address] Work Phone: [phone] 1 HB-Tfqdrvm[place] [address] Work Phone: Office Visit ([facility])o n 11-26-2022 Follow-up visit Diagnoses/Problems Assessed Pelvic pain in female (625.9) (R10.2) Detrusor overactivity (596.51) (N32.81) Orders Detrusor overactivity Start: Solifenacin Succinate 10 MG Oral Tablet (VESIcare); TAKE 1 TABLET Bedtime Patient Discussion/Summary 1. Stage IV prolapse, 1a. POP-Q 07/22/22: Aa: -3. Ba: -3 C: -8 Gh: 1.5. Pb: 3.5 TVL: 9 Ap: -3. Bp: -3. 1b. s/p robotic TLH, BSO sacrocolpopexy, midurethral sling, posterior repair, perineoplasty 06/2020 1c. POP-Q 11/14/20: Aa: -3. Ba: -3 C: -7 Gh: 2. Pb: 4 TVL: 9 Ap: -3. Bp: -3. (mesh erosion noted on this exam) 1d. s/p robotic excision of sacrocolpopexy mesh on 03/25/21 2. UUI confirmed on UDS - refractory to myrbetriq 2a. On Trospium 20 mg QD 3. Nephrolithiasis 3a. Bilateral hydronephrosis, no obstructing stones on CTU 02/03/22 and 10/23/21 4. CRPS 5. Iatrophobia 6. Pelvic pain - started PFPT 02/18/22 Today's Visit: Last seen by myself 05/28/22. 62 year old female presents for routine follow up. Unfortunately, she fractured her pelvis and has not been able to participate in PFPT since August 2022. She reports nocturnal enuresis on a frequent basis. She practices timed voiding every 2 hours during the day as to mitigate her urge incontinence but has experienced leakage when getting out of her truck. She is taking trospium without significant benefit. Additionally, she reports vaginal pressure when standing on her feet for long periods of time and suspects her prolapse may have recurred. 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 She has multiple allergies/adverse reactions, see allergy tab. Patient is a former smoker. Plan: On exam, there was no evidence of pelvic organ prolapse, though she could not bear down fully due to discomfort. There was significant tenderness upon palpation of the right sided levator muscles. 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 We discussed nocturnal enuresis. I suspect her symptoms are of an overactive bladder etiology, as seen on UDS 08/28/20. However, trospium is not providing sufficient relief. So, I recommended that she discontinue trospium and try solifenacin 10 mg QD. If her symptoms are refractory to this medication, I would recommend consideration of advanced therapies such as Botox injections or sacral neuromodulation. I asked her to call my nurse Pilar to re-evaluate symptoms in 4-6 weeks. All questions and concerns were addressed. Patient verbalizes understanding and has no other questions at this time. I, Rafael Sanchez, am scribing for and in the presence of Dr. Barbosa. I, Flip Barbosa, agree that all documentation by the scribe, Rafael Sanchez, was under my direction and is an accurate representation of the discussion, physical exam, assessment and plan. Chief Complaint 6 month f/u History of Present Illness Testing results: PVR results not available and UA results not available. 1. Stage IV prolapse, 1a. POP-Q 07/22/22: Aa: -3. Ba: -3 C: -8 Gh: 1.5. Pb: 3.5 TVL: 9 Ap: -3. Bp: -3. 1b. s/p robotic TLH, BSO sacrocolpopexy, midurethral sling, posterior repair, perineoplasty 06/2020 1c. POP-Q 11/14/20: Aa: -3. Ba: -3 C: -7 Gh: 2. Pb: 4 TVL: 9 Ap: -3. Bp: -3. (mesh erosion noted on this exam) 1d. s/p robotic excision of sacrocolpopexy mesh on 03/25/21 2. UUI confirmed on UDS - refractory to myrbetriq 2a. On Trospium 20 mg QD 3. Nephrolithiasis 3a. Bilateral hydronephrosis, no obstructing stones on CTU 02/03/22 and 10/23/21 4. CRPS 5. Iatrophobia 6. Pelvic pain - started PFPT 02/18/22 Today's Visit: Last seen by myself 05/28/22. 62 year old female presents for routine follow up. Unfortunately, she fractured her pelvis and has not been able to participate in PFPT since August 2022. She reports nocturnal enuresis on a frequent basis. She practices timed voiding every 2 hours during the day as to mitigate her urge incontinence but has experienced leakage when getting out of her truck. She is taking trospium without significant benefit. Additionally, she reports vaginal pressure when standing on her feet for long periods of time and suspects her prolapse may have recurred. 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 She has multiple allergies/adverse reactions, see allergy tab. Patient is a former smoker. Review of Systems Constitutional: No fever, No chills and No fatigue. Eyes: No vision problems and No dryness of the eyes. ENT: No dry mouth, No hearing loss and No nosebleeds. Cardiovascular: No chest pain, No palpitations and No orthopnea. Respiratory: No shortness of breath, No cough and No wheezing. Gastrointestinal: No abdominal pain, No constipation, No nausea, No diarrhea, No vomiting and No melena. Genitourinary: As noted in HPI. Musculoskeletal: No back pain, No myalgias, No muscle weakness, No joint swelling and No leg edema. Integumentary: No rashes, No skin lesion and No itching. Neurological: No headache, No numbness and No dizziness. Psychiatric: No sleep disturbances, No anxiety and No depression. (more content not included)... Normal [place] 07-02-2022 [facility] HNO ID: [id number] Author: RT Paola(R) Service: Radiology Author Type: Technologist Type: [facility] Filed: 07/01/2022 11:14 PM Note Text: Radiology Service Progress Note PATIENT NAME: Anca Hsu DATE OF SERVICE: July 01, 2022 TIME: 11:13 PM PATIENT IDENTITY VERIFICATION COMPLETED USING TWO (2) IDENTIFIERS: Name and Date of confirmed by patient verbally and Name and Date of confirmed by identification band. FALL SCREENING: Has the patient had 2 falls in the last year or 1 fall with injury or currently using an Ambulatory Assistive Device (Walker, Cane, Wheelchair, Crutches, etc.)? Emergency Room Patient: Screened in ED PATIENT GENDER DATA: Female. status: : No status: NO. PATIENT RELEVANT IMPLANT DATA REVIEWED: Not Applicable RADIOLOGY DEPARTMENT: General X-ray: Exam(s) Completed: Upper Extremity X-Ray(s): Hand, bilateral PERIPHERAL IV DATA: Not applicable SIGNED BY: RT Paola(R) July 01, 2022 11:13 PM [facility] ED NOTEon 07-02-2022 ED NOTE HNO ID: [id number] Author: Darlyn Peraza RN Service: ? Author Type: Registered Nurse Type: ED Notes Filed: 07/02/2022 1:15 AM Note Text: Discharge to home with family, finger splint applied to right hand,will follow up with PCP and return sooner if condition worsens. No further questions at this time [facility] ED NOTE HNO ID: [id number] Author: Darlyn Peraza RN Service: ? Author Type: Registered Nurse Type: ED Notes Filed: 07/02/2022 12:35 AM Note Text: Cleaned wound and placed bacitracin on and Band-Aids. [facility] ED NOTE HNO ID: [id number] Author: Libby Peterson RN Service: ? Author Type: Registered Nurse Type: ED Notes Filed: 07/01/2022 11:03 PM Note Text: Patient arrived via private car with complaints of dog bite, to left and right hand. Patient own dog bite her when she was attempting to place medicine in dogs ear. [facility] ED PROV NOTEon 07-02-2022 ED PROV NOTE HNO ID: [id number] Author: Patricia Mendiola MD Service: ? Author Type: Physician Type: ED Provider Notes Filed: 07/02/2022 1:57 AM Note Text: ED Provider Note Patient Name: Anca Hsu : 1960 SERVICE DATE: 07/01/22 History Patient presents with: Dog Bite Patient presents with bilateral hand puncture wounds due to her puppy biting her just prior to arrival. Patient is unsure of Td status. She is refusing tdap up date. Her dog is an inside dog. Shots up to date. No past medical history on file. No past surgical history on file. No family history on file. Social History Tobacco Use Smoking status: Former Types: Cigarettes Smokeless tobacco: Never Substance and Sexual Activity Alcohol use: Yes Comment: occ Drug use: Never Sexual activity: Not on file ALLERGIES Allergen Reactions Demoral [Meperidine] Unknown Hale Nut Rash, Hives, Itching, Shortness of Breath Bupivacaine Hcl Other: See Comments Adhesive Tape (Maura* Rash Blue Dye Unknown Ultrasound gel Carafate [Sucralfat* Other: See Comments Chlorhexidine Other: See Comments Petechiae, blisters Marcaine [Bupivacai* Other: See Comments Novacaine [Procaine] Other: See Comments Sulfa (Sulfonamide * Rash Review of Systems Respiratory: Negative for shortness of breath. Cardiovascular: Negative for leg swelling. Gastrointestinal: Negative for abdominal pain. Genitourinary: Negative for difficulty urinating. Skin: Positive for wound. Negative for color change and pallor. Neurological: Negative for weakness. Psychiatric/Behavioral: Negative for agitation and behavioral problems. Physical Exam Vitals [07/01/22 2252] BP Pulse Temp Temp src Resp SpO2 Weight Height 116/71 75 -- -- 18 97 % 54.4 kg (120 lb) -- Physical Exam Vitals and nursing note reviewed. Constitutional: Appearance: Normal appearance. HENT: Head: Normocephalic and atraumatic. Musculoskeletal: Hands: Comments: Multiple puncture wounds to both her hands, right worse then left. Right middle finger with swelling and tenderness diffusely. Pain with range of motion at MIP, PIP, and DIP Skin: General: Skin is warm and dry. Capillary Refill: Capillary refill takes less than 2 seconds. Neurological: Mental Status: She is alert and oriented to person, place, and time. Psychiatric: Attention and Perception: Attention normal. Mood and Affect: Affect is angry. Speech: Speech normal. Behavior: Behavior is agitated. Cognition and Memory: Cognition normal. Diagnostic Testing ED Labs Ordered and Reviewed - No data to display XR HAND GENERAL 3V PA/LAT/OBL RIGHT Final Result IMPRESSION: 1. Right hand: No foreign body or fracture. 2. Left hand: No foreign body or fracture. Manufacturer'S Representative: PSCB Transcribe Date/Time: Jul 02 2022 12:57A Dictated by : CARMENZA WOODWARD MD This examination was interpreted and the report reviewed and electronically signed by: CARMENZA WOODWARD MD on Jul 02 2022 12:59AM EST XR HAND GENERAL 3V PA/LAT/OBL LEFT Final Result IMPRESSION: 1. Right hand: No foreign body or fracture. 2. Left hand: No foreign body or fracture. Manufacturer'S Representative: PSCKeerthi Transcribe Date/Time: Jul 02 2022 12:57A Dictated by : CARMENZA WOODWARD MD This examination was interpreted and the report reviewed and electronically signed by: CARMENZA WOODWARD MD on Jul 02 2022 12:59AM EST Procedures ED Course / Clinical Impression ED Course as of 07/02/22 0150 Others' Documentation WedJul 01, 2022 2303 Pt refused to see a Dr Maury LU aware [SHANNON] ED Course User Index [SHANNON] Karen Krishna PA-C Clinical Impressions as of 07/02/22 0150 Dog bite of right hand, initial encounter Dog bite of left hand, initial encounter MDM / Disposition / Plan Nurses notes and old chart reviewed Patient very agitated and angry. Initially told Paul she would not see her. Once I saw her she was very agitated and angry. I attempted to de escalate but she was very angry about her allergies not being documented. I had brought giovanny to soak her wounds with initially but she was allergic to this. I asked her then if she was allergic to hydrogen peroxide or saline. She stated she allergic to stupidity. Patient here for multiple puncture wounds to her bilateral hands Td status unknown and refusing shot today. Xray bilateral hands were normal Cleaned and soaked in saline/hydrogen peroxide. Bacitracin placed Metal splint placed on right middle finger Rx augmentin empirically. Xrays were taking over 2 hours to be read so I offered to call her at home with results which I did The patient was DISCHARGED: Counseled patient regarding radiology results AND suspected diagnosis AND need for follow-up. Discharged home with verbal and written instructions. They were instructed to return as needed for persistent or worsening symptoms or any new concerns. Condition at time of disposition: stable SIGNATURE: (more content not included)... Normal [facility] XR HAND 3V PA/LAT/OBL LTon 0 07-02-2022 XR HAND 3V PA/LAT/OBL LT * * *Final Report* * * DATE OF EXAM: Jul 01 2022 11:15PM MDX 5345 - XR HAND 3V PA/LAT/OBL LT / PROCEDURE REASON: Abnormal xray - foreign body * * * * Physician Interpretation * * * * EXAM: XR HAND 3V PA/LAT/OBL LT, XR HAND 3V PA/LAT/OBL RT COMPARISON: No relevant prior available PATIENT HISTORY: Abnormal xray - foreign body TECHNIQUE: Bilateral hand PA, oblique, and lateral views FINDINGS: Right hand: No radiopaque foreign body. Joint spacing and alignment are normal. No acute fracture. Left hand: No radiopaque foreign body. Joint spacing and alignment are normal. No acute fracture. IMPRESSION: 1. Right hand: No foreign body or fracture. 2. Left hand: No foreign body or fracture. Manufacturer'S Representative: S[employer] Transcribe Date/Time: Jul 02 2022 12:57A Dictated by : CARMENZA WOODWARD MD This examination was interpreted and the report reviewed and electronically signed by: CARMENZA WOODWARD MD on Jul 02 2022 12:59AM EST [id number] [facility] XR HAND 3V PA/LAT/OBL RTon 0 07-02-2022 XR HAND 3V PA/LAT/OBL RT * * *Final Report* * * DATE OF EXAM: Jul 01 2022 11:15PM MDX 5346 - XR HAND 3V PA/LAT/OBL RT / PROCEDURE REASON: Abnormal xray - foreign body * * * * Physician Interpretation * * * * EXAM: XR HAND 3V PA/LAT/OBL LT, XR HAND 3V PA/LAT/OBL RT COMPARISON: No relevant prior available PATIENT HISTORY: Abnormal xray - foreign body TECHNIQUE: Bilateral hand PA, oblique, and lateral views FINDINGS: Right hand: No radiopaque foreign body. Joint spacing and alignment are normal. No acute fracture. Left hand: No radiopaque foreign body. Joint spacing and alignment are normal. No acute fracture. IMPRESSION: 1. Right hand: No foreign body or fracture. 2. Left hand: No foreign body or fracture. Manufacturer'S Representative: Sionex Transcribe Date/Time: Jul 02 2022 12:57A Dictated by : CARMENZA WOODWARD MD This examination was interpreted and the report reviewed and electronically signed by: CARMENZA WOODWARD MD on Jul 02 2022 12:59AM EST [id number] Normal [facility] IO UA (automated w/o microsc opy)on 05-28-2022 Protein (U) [Mass/Vol] Negative FH-Mnrmesn-J est[place] [employer] [address] Work Phone: IO UA (automated w/o microscopy) Negative [facility] [address] Work Phone: IO UA (automated w/o microscopy) Normal (0.2-1.0 mg/dl) [facility] [address] Work Phone: IO UA (automated w/o microscopy) 5.5 1 CF-Qjkxbrs-J [facility] Direct [facility] [address] Work Phone: IO UA (automated w/o microscopy) 1.030 1 BH[facility]vhlr[facility] [address] Work Phone: IO UA (automated w/o microscopy) Clear IW[facility]jyax[facility] [address] Work Phone: IO UA (automated w/o microscopy) Yellow GL-Xefdnfm-B [employer] [address] Work Phone: Tobacco Screening.on 022 Fall risk assessment b) One or more fall s in the last year MG-Neurology -[facility] Work Phone: Tobacco use status [facility] b) No [facility] Work Phone: Complete Blood Count + Diffe rentialon 04-13-2022 Basophils/100 WBC (Bld) 1.3 % 0.0 - 2.0 LC-Souehge-U estlaConnectToHome [id number] Work Phone: Erythrocyte distribution width (RBC) [Ratio] 12.3 % See Below CG[facility]glbr[facility] [address] Work Phone: Comment on above: Reference Range: 11. 5 - 14.5 Hematocrit (Bld) [Volume fraction] 34.2 % below low threshold See Below HQ[facility]xlfnuz[facility] [address] Work Phone: [phone] Comment on above: Reference Range: 36. 0 - 46.0 Hemoglobin (Bld) [Mass/Vol] 11.4 g/dL below low threshold See Below GM-Nkaivrx-X [facility] [address] Work Phone: [phone] Comment on above: Reference Range: 12. 0 - 16.0 Lymphocytes/100 WBC (Bld) 24.0 % See Below XN-Bsubtgn[facility]B [facility] [address] Work Phone: [phone] Comment on above: Reference Range: 13. 0 - 44.0 MCHC (RBC) [Mass/Vol] 33.3 g/dL See Below NZ-Vkahczw-C [facility] [address] Work Phone: [phone] Comment on above: Reference Range: 32. 0 - 36.0 MCV (RBC) [Entitic vol] 95 fL 80 - 100 KK-Izetkck-B [facility] [address] Work Phone: Monocytes/100 WBC (Bld) 10.3 % 2.0 - 10.0 NF[facility]Alwvefy[facility] Work Phone: Neutrophils/100 WBC (Bld) 62.1 % See Below ME-Iqtqtin-W [facility] [address] Work Phone: Comment on above: Reference Range: 40. 0 - 80.0 Platelets (Bld) [#/Vol] 232 10*3/uL 150 - 450 QL-Swtjaol-G [facility] [address] Work Phone: RBC (Bld) [#/Vol] 3.59 {x10E12/L} below low threshold See Below XA-Pwutjta-R estwibenedicto [facility] [address] Work Phone: Comment on above: Reference Range: 4.0 0 - 5.20 WBC (Bld) [#/Vol] 4.8 10*3/uL 4.4 - 11.3 MG-Uro logy-W [facility] [address] Work Phone: [phone] Complete Blood Count + Differential 0.06 {x10E9/L} See Below MB-Gdtweki-A [facility] [address] Work Phone: Comment on above: Reference Range: 0.0 0 - 0.10 Complete Blood Count + Differential 0.09 {x10E9/L} See Below PY-Wpsyjun-G [facility] [address] Work Phone: Comment on above: Reference Range: 0.0 0 - 0.70 Complete Blood Count + Differential 0.49 {x10E9/L} See Below ED-Vgciucw-B [facility] [address] Work Phone: Comment on above: Reference Range: 0.1 0 - 1.00 Complete Blood Count + Differential 1.14 {x10E9/L} below low threshold See Below NO-Ytmauvm-P [facility] [address] Work Phone: Comment on above: Reference Range: 1.2 0 - 4.80 Complete Blood Count + Differential 2.95 {x10E9/L} See Below CB-Odhxdak-V [facility] [address] Work Phone: Comment on above: Reference Range: 1.2 0 - 7.70 Complete Blood Count + Differential 1.9 % 0.0 - 6.0 PB-Jlatjsu-D [facility] [address] Work Phone: Complete Blood Count + Differential 0.4 % 0.0 - 0.9 EK-Kwbjigp-M [place] [address] Work Phone: Comment on above: Immature Granulocyte Count (IG) includes promyelocytes, myelocytes and metamyelocytes but does not include bands. Percent differential counts (%) should be interpreted in the context of the absolute cell counts (cells/L). Complete Blood Count + Differential 0.0 {/100_WBC} 0.0-0.0 QC-Tfaolrq-Z [facility] [address] Work Phone: Hepatic Function Panelon Albumin BCP dye [Mass/Vol] 4.2 g/dL 3.4 - 5.0 MW-Xgkytcz-D [place] [id number] Work Phone: ALP [Catalytic activity/Vol] 77 U/L 33 - 136 QC-Riwgiih-L [place] [id number] Work Phone: ALT With P-5'-P [Catalytic activity/Vol] 67 U/L above high threshold 7 - 45 XR-Elmssdi-N [place] [id number] Work Phone: Comment on above: Patients treated wit h Sulfasalazine may generate falsely decreased results for ALT. AST With P-5'-P [Catalytic activity/Vol] 50 U/L above high threshold 9 - 39 ED-Qfmcyfc-G [facility] [address] Work Phone: Bilirubin [Mass/Vol] 0.4 mg/dL 0.0 - 1.2 MG-U rology-W [place] [id number] Work Phone: Bilirubin.direct [Mass/Vol] 0.1 mg/dL 0.0 - 0.3 YL-Esdefrn-O [place] 1227201 Work Phone: Protein [Mass/Vol] 6.5 g/dL 6.4 - 8.2 MG-Uro logy-W [place] [id number] Work Phone: Tobacco Screening.on Fall risk assessment a) No falls within the last year OR-Gckvfjc-E arma MAC2 303 Work Phone: Tobacco use status CPHS b) No FB-Gjnunet-O arma MAC2 303 Work Phone: Tobacco Screening.on Fall risk assessment b) One or more fall s in the last year GL-Xhayodn-B arma MAC2 303 Work Phone: Tobacco use status CPHS b) No UJ-Tvceban-O arma MAC2 303 Work Phone: IO UA (automated w/o microsc opy)on 02-19-2022 Protein (U) [Mass/Vol] Negative AS-Natgozw-H [place] [id number] Work Phone: IO UA (automated w/o microscopy) Negative SQ-Midahos-K [place] [id number] Work Phone: IO UA (automated w/o microscopy) Normal (0.2-1.0 mg/dl) MG-Urolog y[facility] [address] Work Phone: IO UA (automated w/o microscopy) 6.0 1 KQ-Ckachgq-U [place] [id number] Work Phone: IO UA (automated w/o microscopy) 1.030 1 KY-Thgrovf-N [facility] [address] Work Phone: IO UA (automated w/o microscopy) (+)small - 15 XH-Ecwpety-L [place] [id number] Work Phone: IO UA (automated w/o microscopy) Clear YF-Itlaqzq-J [place] [address] Work Phone: IO UA (automated w/o microscopy) Yellow OM-Osyciaa-K [place] [id number] Work Phone: No Panel Informationon 02-02 ZJ-Uojzwdz-G arma MAC2 303 Work Phone: [email or web address] provat [email or web address]/Android App Review Sourcekey.aspx?={[email or web address] [id number] CA7} QE-Khgxlor-K arma MAC2 303 Work Phone: FL-Nscwavh-H arma MAC2 303 Work Phone: Coronavirus 2019 RNA by PCR, Screening Asymptomticon 02-01-2022 Coronavirus 2019 RNA by PCR, Screening Asymptomtic Not detected Normal See Below AM-Eyxrinb-C arma MAC2 303 Work Phone: Comment on above: SOURCE: Nasal, Nasop haryngealReference Range: Not Detected.This test has received FDA Emergency Use Authorization (EUA) and has been verified by [facility]. This test is only authorized for the duration of time that circumstances exist to justify the authorization of the emergency use of in vitro diagnostic tests for the detection of SARS-CoV-2 virus and/or diagnosis of COVID-19 infection under section 564(b)(1) of the Act, 21 U.S.C. 360bbb-3(b)(1), unless the authorization is terminated or revoked sooner. [facility] is certified under CLIA-88 as qualified to perform high complexity testing. Testing is performed in the [facility] laboratory located at [address] [place] [address].SARS-CoV-2/Flu/RSV Multiplex Test: Fact sheet for providers: https://www.fda.gov/media/440307/downloadFact sheet for patients: https://www.fda.gov/media/979345/download Tobacco Screening.on 022 Tobacco use status CP b) No CK-Pdtnobd-L arma MAC2 303 Work Phone: Laboratory - Chemistry and C hemistry - challengeon 12-10-2021 Anion gap [Moles/Vol] 14 mmol/L 10 - 20 TZ-Txrthhj-E [employer] [address] Work Phone: Calcium [Mass/Vol] 9.4 mg/dL 8.6 - 10.6 MG-Uro logy-W [employer] [facility] [address] Work Phone: Chloride [Moles/Vol] 107 mmol/L 98 - 107 MG-U rology-W [employer] [facility] [address] Work Phone: CO2 [Moles/Vol] 25 mmol/L 21 - 32 MG-Urolog y-W [employer] [address] Work Phone: Creatinine [Mass/Vol] 0.50 mg/dL See Below AS-Nkniomk-X [employer] [facility] [place] [id number] Work Phone: Comment on above: Reference Range: 0.5 0 - 1.05 Glucose [Mass/Vol] 73 mg/dL below low threshold 74 - 99 FG-Xfzwoef-F [facility] [address] Work Phone: Potassium [Moles/Vol] 4.3 mmol/L 3.5 - 5.3 JN-Efirvev-G [place] [id number] Work Phone: Sodium [Moles/Vol] 142 mmol/L 136 - 145 MG-Uro logy-W [place] [id number] Work Phone: Urea nitrogen [Mass/Vol] 16 mg/dL 6 - 23 UO-Hgvhnhn-S [place] [address] Work Phone: Mumps IgG Antibodyon 022 MuV IgG (S) [Titer] Positive MG-Ur ology-W [place] [address] Work Phone: Comment on above: INTERPRETATIVE COMME NT NEGATIVE: No IgG antibodies specific to Mumps detected. It is likely that the patient has not had a previous exposure to Mumps through infection or vaccination. Alternatively, the patient may have been exposed to Mumps but a failure to respond may indicate immunodeficiency. EQUIVOCAL:Equivocal results; obtain additional sample for retesting. POSITIVE: IgG antibody to Mumps detected. This may indicate that the patient was exposed to Mumps through infection or vaccination.The interpretation of serological tests should take into accountthe immunological status of the patient. Test results forpatients, including immunocompromised patients, neonates, andpediatric patients, reflect their capacity to respondimmunologically to the virus as well as their exposure to thepathogen. Patients treated with IVIG may demonstrate alteredresults in serological assays. No Panel Informationon 12-10 >90 >90 FN-Cvubcto-D [facility] [address] Work Phone: Comment on above: CALCULATIONS OF LEW MATED GFR ARE PERFORMED USING THE 2020 CKD-EPI STUDY REFIT EQUATION WITHOUT THE RACE VARIABLE FOR THE IDMS-TRACEABLE CREATININE METHODS.https://jasn.asnjournals.org/content/early//ASN .6320380498 Please click on the link to view the study images Normal ZM[facility]Twzozih[facility]D [facility] [address] Work Phone: Rubella IgG Antibodyon 12-10 Rubella virus IgG IA Ql Positive IB-Mdjqhrl-O [facility] [address] Work Phone: Comment on above: INTERPRETATIVE COMME NT NEGATIVE: No IgG antibodies specific to Rubella detected. It is likely that the patient has not had a previous exposure to Rubella through infection or vaccination. Alternatively, the patient may have been exposed to Rubella but a failure to respond may indicate immunodeficiency. EQUIVOCAL:Equivocal results; obtain additional sample for retesting. POSITIVE: IgG antibody to Rubella detected. This may indicate that the patient was exposed to Rubella through infection or vaccination.The interpretation of serological tests should take into accountthe immunological status of the patient. Test results forpatients, including immunocompromised patients, neonates, andpediatric patients, reflect their capacity to respondimmunologically to the virus as well as their exposure to thepathogen. Patients treated with IVIG may demonstrate alteredresults in serological assays. Rubeola IgG Antibodyon 12-10 MeV IgG IA Ql (S) Positive MG-Urol ogy-W [facility] [address] Work Phone: Comment on above: INTERPRETATIVE COMME NT NEGATIVE: No IgG antibodies specific to Measles detected. It is likely that the patient has not had a previous exposure to Measles through infection or vaccination. Alternatively, the patient may have been exposed to Measles but a failure to respond may indicate immunodeficiency. EQUIVOCAL:Equivocal results; obtain additional sample for retesting. POSITIVE: IgG antibody to Measles detected. This may indicate that the patient was exposed to Measles through infection or vaccination.The interpretation of serological tests should take into accountthe immunological status of the patient. Test results forpatients, including immunocompromised patients, neonates, andpediatric patients, reflect their capacity to respondimmunologically to the virus as well as their exposure to thepathogen. Patients treated with IVIG may demonstrate alteredresults in serological assays. GI UPPER GI W SBFTon 31-2 022 GI UPPER GI W SBFT Patient Name: ANCA HSU STUDY: Double-contrast upper GI series with small-bowel follow-through dated 12/01/2021. INDICATION: Pain. COMPARISON: None. ACCESSION NUMBER(S): [id number] ORDERING CLINICIAN: SOLOMON WATKINS TECHNIQUE: Intelligence Intern radiograph of the abdomen was obtained. The patient was then asked to drink liquid barium solution while the esophagus stomach and duodenal sweep were assessed under active fluoroscopy. The patient was then given additional and serial radiography of the abdomen was obtained. FINDINGS: The visualized lungs are clear. There is a nonspecific nonobstructive bowel gas pattern. The patient is status post gastric bypass. Contrast readily passes down the esophagus into the stomach pouch and immediately into the efferent limb. The esophageal mucosa is unremarkable. The gastric mucosa is unremarkable. After approximately 1 hour, the contrast head progressed through to the midportion of the small bowel, without evidence of significant mucosal abnormality or dilatation. At this point, the patient refused to continue with the examination and left the department. IMPRESSION: 1. Postoperative changes status post gastric bypass. 2. Contrast seen to readily passed into the stomach pouch and into the small bowel without evidence of obstruction. 3. Incomplete small-bowel follow-through, as above. Electronically signed by: CHRISTO LEONARD MD [facility] No Panel Informationon 12-01 Normal BU-Bbaouhr-R arma MAC2 303 Work Phone: Blood Pressure Cuff Sizeon 0 11-27-2021 Blood Pressure Cuff Size Adult UH-Awegfyl-C arma MAC2 303 Work Phone: Complete Blood Count + Diffe rentialon 11-27-2021 Basophils/100 WBC (Bld) 1.3 % 0.0 - 2.0 HA-Hwfujdd-A arma MAC2 303 Work Phone: Erythrocyte distribution width (RBC) [Ratio] 12.3 % See Below AZ-Ipgsnso-P arma MAC2 303 Work Phone: Comment on above: Reference Range: 11. 5 - 14.5 Hematocrit (Bld) [Volume fraction] 38.7 % See Below YV-Cxkmery-W arma MAC2 303 Work Phone: Comment on above: Reference Range: 36. 0 - 46.0 Hemoglobin (Bld) [Mass/Vol] 12.3 g/dL See Below FY-Nrwudsi-N arma MAC2 303 Work Phone: Comment on above: Reference Range: 12. 0 - 16.0 Lymphocytes/100 WBC (Bld) 23.8 % See Below KH-Cwryzvn-D arma MAC2 303 Work Phone: Comment on above: Reference Range: 13. 0 - 44.0 MCHC (RBC) [Mass/Vol] 31.8 g/dL below low threshold See Below AK-Ycbqiwp-N arma MAC2 303 Work Phone: Comment on above: Reference Range: 32. 0 - 36.0 MCV (RBC) [Entitic vol] 100 fL 80 - 100 QP-Wppwydb-W arma MAC2 303 Work Phone: Monocytes/100 WBC (Bld) 8.9 % 2.0 - 10.0 RR-Gsglryh-H arma MAC2 303 Work Phone: Neutrophils/100 WBC (Bld) 65.4 % See Below MN-Fmhwbta-H arma MAC2 303 Work Phone: Comment on above: Reference Range: 40. 0 - 80.0 Platelets (Bld) [#/Vol] 239 10*3/uL 150 - 450 ON-Wnietdu-T arma MAC2 303 Work Phone: RBC (Bld) [#/Vol] 3.86 {x10E12/L} below low threshold See Below JO-Ypwvekm-L arma MAC2 303 Work Phone: Comment on above: Reference Range: 4.0 0 - 5.20 WBC (Bld) [#/Vol] 4.5 10*3/uL 4.4 - 11.3 MG-Moni shubham-P arma MAC2 303 Work Phone: Complete Blood Count + Differential 0.06 {x10E9/L} See Below LR-Gusqsny-Q arma MAC2 303 Work Phone: Comment on above: Reference Range: 0.0 0 - 0.10 Complete Blood Count + Differential 0.02 {x10E9/L} See Below OY-Blrvjlj-F arma MAC2 303 Work Phone: Comment on above: Reference Range: 0.0 0 - 0.70 Complete Blood Count + Differential 0.40 {x10E9/L} See Below JZ-Ujylpsi-A arma MAC2 303 Work Phone: Comment on above: Reference Range: 0.1 0 - 1.00 Complete Blood Count + Differential 1.07 {x10E9/L} below low threshold See Below YW-Hhbdyiv-W arma MAC2 303 Work Phone: Comment on above: Reference Range: 1.2 0 - 4.80 Complete Blood Count + Differential 2.93 {x10E9/L} See Below CN-Uqxfnyc-T arma MAC2 303 Work Phone: Comment on above: Reference Range: 1.2 0 - 7.70 Complete Blood Count + Differential 0.4 % 0.0 - 6.0 CD-Ezpjsjh-D arma MAC2 303 Work Phone: Complete Blood Count + Differential 0.2 % 0.0 - 0.9 VW-Kzmjymj-L arma MAC2 303 Work Phone: Comment on above: Immature Granulocyte Count (IG) includes promyelocytes, myelocytes and metamyelocytes but does not include bands. Percent differential counts (%) should be interpreted in the context of the absolute cell counts (cells/L). Complete Blood Count + Differential 0.0 {/100_WBC} 0.0-0.0 WV-Lneojrl-H arma MAC2 303 Work Phone: Copper, Serumon 11-27-2021 Copper [Mass/Vol] 88 ug/dL 80-158 MG-Surg preeti-P arma MAC2 303 Work Phone: Comment on above: Detection Limit = 5T est(s) [id number], Serum or Plasma; [id number]-[id number], Plasma or Serumwas developed and its performance characteristics determinedby [facility]. It has not been cleared or approved by the Foodand Drug Administration. Ferritin, Serumon 11-27-2021 Ferritin [Mass/Vol] 48 ug/L 8 - 150 MG-Sanchez rgery-P arma MAC2 303 Work Phone: Folate, Serumon 11-27-2021 Folate [Mass/Vol] ng/mL >5.0 MG-Surg preeti-P arma MAC2 303 Work Phone: Comment on above: Low <3.4Borderline 3 .4-5.0Normal >5.0. Biotin interference may cause falsely elevated results. Patients taking a Biotin dose of up to 5 mg/day should refrain from taking Biotin for 24 hours before sample collection. Providers may contact their local laboratory for further information. Laboratory - Chemistry and C hemistry - challengeon 11-27-2021 Albumin BCP dye [Mass/Vol] 4.6 g/dL 3.4 - 5.0 ZP-Ttvcarh-I arma MAC2 303 Work Phone: ALP [Catalytic activity/Vol] 86 U/L 33 - 136 RH-Ismtqyv-V arma MAC2 303 Work Phone: ALT With P-5'-P [Catalytic activity/Vol] 74 U/L above high threshold 7 - 45 QJ-Oorzpsi-Y arma MAC2 303 Work Phone: Comment on above: Patients treated wit h Sulfasalazine may generate falsely decreased results for ALT. Anion gap [Moles/Vol] 15 mmol/L 10 - 20 JO-Qbobroy-Y arma MAC2 303 Work Phone: AST With P-5'-P [Catalytic activity/Vol] 54 U/L above high threshold 9 - 39 AS-Wzmhggk-O arma MAC2 303 Work Phone: Comment on above: MILD HEMOLYSIS DETEC ORION. The result may be falsely elevated due tohemolysis or other interferents. Clinical correlation is recommended.Repeat testing may be considered. Bilirubin [Mass/Vol] 0.4 mg/dL 0.0 - 1.2 MG-S urgery-P arma MAC2 303 Work Phone: Calcium [Mass/Vol] 9.6 mg/dL 8.6 - 10.6 MG-Moni shubham-P arma MAC2 303 Work Phone: Chloride [Moles/Vol] 105 mmol/L 98 - 107 MG-S urgery-P arma MAC2 303 Work Phone: CO2 [Moles/Vol] 27 mmol/L 21 - 32 MG-Surger y-P arma MAC2 303 Work Phone: Creatinine [Mass/Vol] 0.54 mg/dL See Below FB-Xaipkvx-B arma MAC2 303 Work Phone: Comment on above: Reference Range: 0.5 0 - 1.05 Glucose [Mass/Vol] 117 mg/dL above high threshold 74 - 99 YR-Blvjauj-L arma MAC2 303 Work Phone: Iron [Mass/Vol] 107 ug/dL 35 - 150 MG-Surger y-P arma MAC2 303 Work Phone: Comment on above: MILD HEMOLYSIS DETEC ORION. The result may be falsely elevated due tohemolysis or other interferents. Clinical correlation is recommended.Repeat testing may be considered. Iron binding capacity [Mass/Vol] 366 ug/dL 240 - 445 NB-Ipitadr-E arma MAC2 303 Work Phone: Potassium [Moles/Vol] 4.0 mmol/L 3.5 - 5.3 UL-Iagggxx-C arma MAC2 303 Work Phone: Comment on above: MILD HEMOLYSIS DETEC ORION. The result may be falsely elevated due tohemolysis or other interferents. Clinical correlation is recommended.Repeat testing may be considered. Protein [Mass/Vol] 7.2 g/dL 6.4 - 8.2 MG-Moni shubham-P arma MAC2 303 Work Phone: Sodium [Moles/Vol] 143 mmol/L 136 - 145 MG-Moni shubham-P arma MAC2 303 Work Phone: Thiamine (Bld) [Mass/Vol] 128 nmol/L 70-180 RK-Qqxwdob-J arma MAC2 303 Work Phone: Comment on above: INTERPRETIVE INFORMA TION: Vitamin B1, Whole BloodThis assay measures the concentration of thiamine diphosphate (TDP), the primary active form of vitamin B1. Approximately 90 percent of vitamin B1 present in whole blood is TDP. Thiamine and thiamine monophosphate, which comprise the remaining 10 percent, are not measured.This test was developed and its performance characteristics determined by [facility]. It has not been cleared or approved by the US Food and Drug Administration. This test was performed in a CLIA certified laboratory and is intended for clinical purposes.Performed By: [facility] [place] [address] [id number] Director: Kirsten Rg MD Urea nitrogen [Mass/Vol] 15 mg/dL 6 - 23 MT-Vjygyll-F arma MAC2 303 Work Phone: Lipid Panelon 11-27-2021 Cholesterol [Mass/Vol] Canceled ZJ-Lqpgbkp-R arma MAC2 303 Work Phone: Comment on above: . AGE DESIRABLE BORD PRASANTH HIGH HIGH 0-19 Y 0 - 169 170 - 199 >/= 200 20-24 Y 0 - 189 190 - 224 >/= 225 >24 Y 0 - 199 200 - 239 >/= 240 All ranges are based on fasting samples. Specific therapeutic targets will vary based on patient-specific cardiac risk.. Pediatric guidelines reference:Pediatrics 2011, 128(S5). Adult guidelines reference: NCEP ATPIII Guidelines, PRIMO 2001, 258:2486-97. Venipuncture immediately after or during the administration of Metamizole may lead to falsely low results. Testing should be performed immediately prior to Metamizole dosing. Cholesterol in HDL [Mass/Vol] Canceled PG-Vbwelvk-Q arma MAC2 303 Work Phone: Comment on above: . AGE VERY LOW LOW N ORMAL HIGH 0-19 Y < 35 < 40 40-45 ---- 20- 24 Y ---- < 40 >45 ---- >24 Y ---- < 40 40-60 >60. Cholesterol in LDL [Mass/Vol] Canceled IQ-Vtubwcp-G arma MAC2 303 Work Phone: Comment on above: . NEAR BORD AGE TE RABLE OPTIMAL HIGH HIGH VERY HIGH 0-19 Y 0 - 109 --- 110-129 >/= 130 ---- 20-24 Y 0 - 119 --- 120-159 >/= 160 ---- >24 Y 0 - 99 100-129 130-159 160-189 >/=190. Cholesterol non HDL [Mass/Vol] Canceled HR-Iabvjnb-F arma MAC2 303 Work Phone: Comment on above: AGE DESIRABLE BORDER LINE HIGH HIGH VERY HIGH 0-19 Y 0 - 119 120 - 144 >/= 145 >/= 160 20-24 Y 0 - 149 150 - 189 >/= 190 ---- >24 Y 30 MG/DL ABOVE LDL CHOLESTEROL GOAL. Triglyceride [Mass/Vol] Canceled YG-Rnuyxqg-E arma MAC2 303 Work Phone: Comment on above: . AGE DESIRABLE BORD PRASANTH HIGH HIGH VERY HIGH 0 D-90 D 19 - 174 ---- ---- ----91 D- 9 Y 0 - 74 75 - 99 >/= 100 ---- 10-19 Y 0 - 89 90 - 129 >/= 130 ---- 20-24 Y 0 - 114 115 - 149 >/= 150 ---- >24 Y 0 - 149 150 - 199 200- 499 >/= 500. Venipuncture immediately after or during the administration of Metamizole may lead to falsely low results. Testing should be performed immediately prior to Metamizole dosing. Lipid Panel Canceled EN-Vfoustd-H arma MAC2 303 Work Phone: No Panel Informationon 11-27 >90 >90 ZQ-Nivsvsa-C arma MAC2 303 Work Phone: Comment on above: CALCULATIONS OF LEW MATED GFR ARE PERFORMED USING THE 2020 CKD-EPI STUDY REFIT EQUATION WITHOUT THE RACE VARIABLE FOR THE IDMS-TRACEABLE CREATININE METHODS.https://jasn.asnjournals.org/content//ASN .9406543030 29 % 25 - 45 DV-Tmclfli-P arma MAC2 303 Work Phone: Parathormone Intact, Serumon 11-27-2021 Parathyrin.intact [Mass/Vol] 37.7 pg/mL See Below VO-Chuyvey-X arma MAC2 303 Work Phone: Comment on above: Reference Range: 18. 5 - 88.0 Prealbumin, Serumon 11-27-19 Prealbumin Nephelometry [Mass/Vol] 18.6 mg/dL See Below NF-Masctgl-Q arma MAC2 303 Work Phone: Comment on above: Reference Range: 18. 0 - 40.0 Selenium, Serumon 11-27-2021 Selenium [Mass/Vol] 123.3 ug/L 23.0-190.0 MG-Sanchez rgery-P arma MAC2 303 Work Phone: Comment on above: INTERPRETIVE INFORMA TION: Selenium, Serum or PlasmaElevated results may be due to contamination from skin or other collection-related issues, including the use of a noncertified metal-free collection/transport tube. If contamination concerns exist due to elevated levels of serum/plasma selenium, confirmation with a second specimen collected in a certified metal-free tube is recommended.Serum selenium levels can be used in the determination of deficiency or toxicity. Plasma and serum contains 75 percent of the selenium measured in whole blood and reflects recent dietary intake. Selenium deficiency can occur endemically or as a result of sustained TPN or restricted diets and has been associated with cardiomyopathy and may exacerbate hypothyroidism. Selenium toxicity is relatively rare. Excess intake of selenium can result in symptoms consistent with selenosis and include gastrointestinal upset, hair loss, white blotchy nails, and mild nerve damage. This test was developed and its performance characteristics determined by [facility]. It has not been cleared or approved by the US Food and Drug Administration. This test was performed in a CLIA certified laboratory and is intended for clinical purposes.Performed By: [facility] [place] [address] [id number] Director: Kirsten Rg MD Vitamin A, Serumon 2 Retinol [Mass/Vol] 32.2 ug/dL 22.0-69.5 MG-Moni shubham-P arma MAC2 303 Work Phone: Comment on above: Reference intervals for vitamin A determined from [facility] internalstudies. Individuals with vitamin A less than 20 ug/dL are consideredvitamin A deficient and those with serum concentrations less than10 ug/dL are considered severely deficient.This test was developed and its performance characteristicsdetermined by [facility]. It has not been cleared or approvedby the Food and Drug Administration. Vitamin B12, Serumon 022 Cobalamin (Vitamin B12) [Mass/Vol] pg/mL Abnormal 211 - 911 CP-Iduizzk-U arma MAC2 303 Work Phone: Vitamin B6, Serumon 11-27-19 22 Pyridoxine [Mass/Vol] 160.6 nmol/L above high threshold 20.0-125.0 DC-Xcpupja-K arma MAC2 303 Work Phone: Comment on above: INTERPRETIVE INFORMA TION: Vitamin B6 (Pyridoxal 5-Phosphate)Pyridoxal 5'-phosphate measured in a specimen collected following an 8-hour or overnight fast accurately indicates vitamin B6 nutritional status. Non-fasting specimen concentration reflects recent vitamin intake.This test was developed and its performance characteristics determined by [facility]. It has not been cleared or approved by the [place] Food and Drug Administration. This test was performed in a CLIA certified laboratory and is intended for clinical purposes.Performed By: [facility] [place] [id number] Director: Kirsten Rg MD Vitamin D 25-Hydroxyon 11-27 25-hydroxyvitamin D3 [Mass/Vol] 36 ng/mL HM-Yqxkafc-L arma MAC2 303 Work Phone: Comment on above: .DEFICIENCY: < 20 NG /MLINSUFFICIENCY: 20-29 NG/MLSUFFICIENCY: 30-100 NG/MLTHIS ASSAY ACCURATELY QUANTIFIES THE SUM OFVITAMIN D3, 25-HYDROXY AND VIT D2,25-HYDROXY. Vitamin K, Levelon 2 Phytonadione [Mass/Vol] 0.32 ng/mL 0.10-2.20 US-Mfeqpzx-G arma MAC2 303 Work Phone: Comment on above: Test(s) 654688-Dpjid in K1was developed and its performance characteristics determinedby [employer]. It has not been cleared or approved by the Foodand Drug Administration. Zinc, Serumon 11-27-2021 Zinc [Mass/Vol] 67 ug/dL 44-115 MG-Surger y-P arma MAC2 303 Work Phone: Comment on above: Detection Limit = 5T est(s) 929693-Qevnfc, Serum or Plasma; 174989-Rnhn, Plasma or Serumwas developed and its performance characteristics determinedby [employer]. It has not been cleared or approved by the Foodand Drug Administration. CT Urography with 3D Volume Rendered Imagingon 10-23-2021 CT Urography with 3D Volume Rendered Imaging Normal CX-Yuetcex-R [facility]laCorban [facility] [address] Work Phone: Laboratory - Chemistry and C hemistry - challengeon 10-21-2021 Anion gap [Moles/Vol] 10 mmol/L 10 - 20 RL-Pbvctti-W [facility]laCorban [facility] [address] Work Phone: Calcium [Mass/Vol] 9.2 mg/dL 8.6 - 10.6 MG-Uro logy-W [facility] [place] [id number] Work Phone: Chloride [Moles/Vol] 109 mmol/L above high threshold 98 - 107 HH-Vdjobim-R [facility]laCorban [facility] [place] [id number] Work Phone: CO2 [Moles/Vol] 29 mmol/L 21 - 32 MG-Urolog y-W [facility]laCor[facility] [address] Work Phone: Creatinine [Mass/Vol] 0.50 mg/dL See Below EM-Oxsdckg-G [facility] [place] [id number] Work Phone: Comment on above: Reference Range: 0.5 0 - 1.05 Glucose [Mass/Vol] 138 mg/dL above high threshold 74 - 99 IR-Igvszrb-C [facility]laCor[facility] [address] Work Phone: Potassium [Moles/Vol] 4.3 mmol/L 3.5 - 5.3 GR-Nlvhvgb-W [facility]laCor[facility] [address] Work Phone: Sodium [Moles/Vol] 144 mmol/L 136 - 145 MG-Uro logy-W [employer] [place] [id number] Work Phone: Urea nitrogen [Mass/Vol] 17 mg/dL 6 - 23 WX[facility]xuc[facility] [address] Work Phone: No Panel Informationon 10-21 >60 >60 CB-Znbiaus-N estlabenedicto [facility] [address] Work Phone: Comment on above: CALCULATIONS OF LEW MATED GFR ARE PERFORMED USING THE MDRD STUDY EQUATION FOR THE IDMS-TRACEABLE CREATININE METHODS. CLIN CHEM 2007;53:766-72 IO UA (automated w/o microsc opy)on 10-09-2021 Protein (U) [Mass/Vol] Negative FR-Bhkmnfu-B estlabenedicto [facility] [address] Work Phone: IO UA (automated w/o microscopy) Negative EM-Zydolqk-E estwibenedicto [facility] [address] Work Phone: IO UA (automated w/o microscopy) Normal (0.2-1.0 mg/dl) MG-Urolog y-W estlabenedicto [facility] [address] Work Phone: IO UA (automated w/o microscopy) 6.0 1 HI-Fhohgsf-Y estlabenedicto [facility] [address] Work Phone: IO UA (automated w/o microscopy) 1.030 1 YX-Ndklhhv-C estwibenedicto [facility] [address] Work Phone: IO UA (automated w/o microscopy) Trace TF-Hddshkm-N estlabenedicto [facility] [address] Work Phone: IO UA (automated w/o microscopy) Clear US-Nupulbe-N estlabenedicto [facility] [address] Work Phone: IO UA (automated w/o microscopy) Yellow IU-Emokpec-H estlabenedicto [facility] [address] Work Phone: IO Ultrasound, measurement p ost-void resid urine and/or bl cap; no imagon 10-09-2021 IO Ultrasound, measurement post-void resid urine and/or bl cap; no imag 0 mL MV-Sfcrota-Z [facility]laCor[facility] [address] Work Phone: Tobacco Screening.on 021 Fall risk assessment b) One or more fall s in the last year [facility] Work Phone: Tobacco use status CPHS b) No [facility] Work Phone: Hepatic Function Panelon Albumin BCP dye [Mass/Vol] 4.2 g/dL 3.4 - 5.0 PI-Yisxhci-I [place] [id number] Work Phone: ALP [Catalytic activity/Vol] 89 U/L 33 - 136 KV-Ybbxeci-S [place] [id number] Work Phone: ALT With P-5'-P [Catalytic activity/Vol] 55 U/L above high threshold 7 - 45 NV-Zjfeyhb-S [place] [id number] Work Phone: Comment on above: Patients treated wit h Sulfasalazine may generate falsely decreased results for ALT. AST With P-5'-P [Catalytic activity/Vol] 37 U/L 9 - 39 UD-Tjudftx-L [facility] [address] Work Phone: Bilirubin [Mass/Vol] 0.3 mg/dL 0.0 - 1.2 MG-U rology-W [place] [id number] Work Phone: Bilirubin.direct [Mass/Vol] 0.1 mg/dL 0.0 - 0.3 XE-Fujnwcg-Z [place] [id number] Work Phone: Protein [Mass/Vol] 6.4 g/dL 6.4 - 8.2 MG-Uro logy-W [place] 1227201 Work Phone: Hepatitis B Surface Antibody on 09-16-2021 HBV surface Ag IA Ql 47.1 {mIU/mL} <10 M G-Urology-W [place] [id number] Work Phone: Comment on above: SOURCE: INTERPRETIVE CRITERIA:<10 mIU/mL....NONREACTIVE >=10 mIU/mL...REACTIVE . Biotin interference may cause falsely decreased results. Patients taking a Biotin dose of up to 5 mg/day should refrain from taking Biotin for 24 hours before sample collection. Providers may contact their local laboratory for further information. Hepatitis C Antibody Teston 09-16-2021 Hepatitis C Antibody Test Non-Reactive See Below [facility] [address] Work Phone: Comment on above: SOURCE: Reference Ra nge: NONREACTIVE Results from patients taking biotin supplements or receiving high-dose biotin therapy should be interpreted with caution due to possible interference with this test. Providers may contact their local laboratory for further information. SOURCE: Reference Ra nge: NONREACTIVE Biotin interference may cause falsely decreased results. Patients taking a Biotin dose of up to 5 mg/day should refrain from taking Biotin for 24 hours before sample collection. Providers may contact their local laboratory for further information. No Panel Informationon 09-16 Negative NEGATIVE BR-Beuwzup-D [facility]laCorban [facility] [address] Work Phone: Complete Blood Count + Diffe rentialon 08-28-2021 Basophils/100 WBC (Bld) 0.6 % 0.0 - 2.0 [facility]-Pain Management-[facility] [employer] Work Phone: Erythrocyte distribution width (RBC) [Ratio] 13.0 % See Below MP[facility] [address] Work Phone: Comment on above: Reference Range: 11. 5 - 14.5 Hematocrit (Bld) [Volume fraction] 38.1 % See Below MP-Pain Management[facility] [employer] Work Phone: Comment on above: Reference Range: 36. 0 - 46.0 Hemoglobin (Bld) [Mass/Vol] 12.1 g/dL See Below MP-Pain Management-[facility] [employer] Work Phone: Comment on above: Reference Range: 12. 0 - 16.0 Lymphocytes/100 WBC (Bld) 10.3 % See Below MP-Pain Management-[facility] [employer] Work Phone: Comment on above: Reference Range: 13. 0 - 44.0 MCHC (RBC) [Mass/Vol] 31.8 g/dL below low threshold See Below MP[facility] [facility] [place] Work Phone: Comment on above: Reference Range: 32. 0 - 36.0 MCV (RBC) [Entitic vol] 100 fL 80 - 100 MP-[facility] [place] Work Phone: Monocytes/100 WBC (Bld) 11.6 % 2.0 - 10.0 MP[facility] [place] Work Phone: Neutrophils/100 WBC (Bld) 76.4 % See Below MP[facility] [facility] [place] Work Phone: Comment on above: Reference Range: 40. 0 - 80.0 Platelets (Bld) [#/Vol] 254 10*3/uL 150 - 450 MP-[facility] [place] Work Phone: RBC (Bld) [#/Vol] 3.81 {x10E12/L} below low threshold See Below MP-[facility] [facility] [place] Work Phone: Comment on above: Reference Range: 4.0 0 - 5.20 WBC (Bld) [#/Vol] 6.5 10*3/uL 4.4 - 11.3 MP-Jarad n Management-[facility] [place] Work Phone: Complete Blood Count + Differential 0.04 {x10E9/L} See Below MP-[facility] [facility] [place] Work Phone: Comment on above: Reference Range: 0.0 0 - 0.10 Reference Range: 0.0 0 - 0.70 Complete Blood Count + Differential 0.75 {x10E9/L} See Below MP-Pain Management-[facility] [place] Work Phone: Comment on above: Reference Range: 0.1 0 - 1.00 Complete Blood Count + Differential 0.67 {x10E9/L} below low threshold See Below MP-Pain Management-[facility] [employer] Work Phone: Comment on above: Reference Range: 1.2 0 - 4.80 Complete Blood Count + Differential 4.96 {x10E9/L} See Below MP[facility] [address] Work Phone: Comment on above: Reference Range: 1.2 0 - 7.70 Complete Blood Count + Differential 0.6 % 0.0 - 6.0 MP-Pain Management-[facility] [employer] Work Phone: Complete Blood Count + Differential 0.5 % 0.0 - 0.9 MP-[facility] [address] Work Phone: Comment on above: Immature Granulocyte Count (IG) includes promyelocytes, myelocytes and metamyelocytes but does not include bands. Percent differential counts (%) should be interpreted in the context of the absolute cell counts (cells/L). Complete Blood Count + Differential 0.0 {/100_WBC} 0.0-0.0 MP-[facility] [address] Work Phone: Hepatic Function Panelon Albumin BCP dye [Mass/Vol] 4.3 g/dL 3.4 - 5.0 MP-Pain Management-[facility] [employer] Work Phone: ALP [Catalytic activity/Vol] 91 U/L 33 - 136 MP-Pain Management-[facility] [employer] Work Phone: ALT With P-5'-P [Catalytic activity/Vol] 60 U/L above high threshold 7 - 45 MP-Pain Management[facility] [address] Work Phone: Comment on above: Patients treated wit h Sulfasalazine may generate falsely decreased results for ALT. AST With P-5'-P [Catalytic activity/Vol] 33 U/L 9 - 39 MP-Pain [facility] Work Phone: Bilirubin [Mass/Vol] 0.5 mg/dL 0.0 - 1.2 MP-P ain Management-P [facility] Work Phone: Bilirubin.direct [Mass/Vol] 0.1 mg/dL 0.0 - 0.3 MP-Pain Management-[facility] Work Phone: Protein [Mass/Vol] 6.7 g/dL 6.4 - 8.2 MP-Jarad n Management-[facility] [place] Work Phone: Radiologyon 08-13-2021 XR Chest 2 Views Normal [facility] Work Phone: XR Chest 2 Views Please click on the link to view the study images Normal MG-Ophthalmo logy-[employer] Work Phone: Radiologyon 08-07-2021 US Kidney - bilateral Normal [facility] Work Phone: Complete Blood Count + Diffe rentialon 07-24-2021 Basophils/100 WBC (Bld) 1.2 % 0.0 - 2.0 IW-Vsxwswj-A [facility] [address] Work Phone: Erythrocyte distribution width (RBC) [Ratio] 12.7 % See Below EJ-Nxnhiad-Q [facility] [address] Work Phone: Comment on above: Reference Range: 11. 5 - 14.5 Hematocrit (Bld) [Volume fraction] 38.7 % See Below FW-Wfnttmg-M [facility] [address] Work Phone: Comment on above: Reference Range: 36. 0 - 46.0 Hemoglobin (Bld) [Mass/Vol] 12.5 g/dL See Below XB-Gdvifqj-V [facility] [address] Work Phone: Comment on above: Reference Range: 12. 0 - 16.0 Lymphocytes/100 WBC (Bld) 22.5 % See Below QC-Lclpzcx[facility] [address] Work Phone: [phone] Comment on above: Reference Range: 13. 0 - 44.0 MCHC (RBC) [Mass/Vol] 32.3 g/dL See Below MK-Wkodikh-U [place] [address] Work Phone: [phone] Comment on above: Reference Range: 32. 0 - 36.0 MCV (RBC) [Entitic vol] 99 fL 80 - 100 KW-Butdmeh-R [place] [address] Work Phone: [phone] Monocytes/100 WBC (Bld) 11.3 % 2.0 - 10.0 WX-Rwkawpc-O [place] [address] Work Phone: [phone] Neutrophils/100 WBC (Bld) 63.5 % See Below OC-Zqgjcip-G an[place]ia [facility] [address] Work Phone: Comment on above: Reference Range: 40. 0 - 80.0 Platelets (Bld) [#/Vol] 261 10*3/uL 150 - 450 UJ-Mxzhjez-A [place] [address] Work Phone: [phone] RBC (Bld) [#/Vol] 3.91 {x10E12/L} below low threshold See Below ZY-Vcmxbjr-O [place] [address] Work Phone: [phone] Comment on above: Reference Range: 4.0 0 - 5.20 WBC (Bld) [#/Vol] 3.5 10*3/uL below low threshold 4.4 - 11.3 PF-Rfrxsnd-O [place] [address] Work Phone: [phone] Complete Blood Count + Differential 0.04 {x10E9/L} See Below JO-Ruxvuta-P [place] [address] Work Phone: Comment on above: Reference Range: 0.0 0 - 0.10 Reference Range: 0.0 0 - 0.70 Complete Blood Count + Differential 0.39 {x10E9/L} See Below FF-Uvqnnps-D [place] [address] Work Phone: [phone] Comment on above: Reference Range: 0.1 0 - 1.00 Complete Blood Count + Differential 0.78 {x10E9/L} below low threshold See Below IP-Kyqqjfd-E [facility] [place] [address] Work Phone: Comment on above: Reference Range: 1.2 0 - 4.80 Complete Blood Count + Differential 2.20 {x10E9/L} See Below DI-Zzhtrkp-P [place] [address] Work Phone: Comment on above: Reference Range: 1.2 0 - 7.70 Complete Blood Count + Differential 1.2 % 0.0 - 6.0 KA-Sprakpx-R [place] [address] Work Phone: Complete Blood Count + Differential 0.3 % 0.0 - 0.9 NA-Gacabpo-G [place] [address] Work Phone: Comment on above: Immature Granulocyte Count (IG) includes promyelocytes, myelocytes and metamyelocytes but does not include bands. Percent differential counts (%) should be interpreted in the context of the absolute cell counts (cells/L). Complete Blood Count + Differential 0.0 {/100_WBC} 0.0-0.0 DS-Rhqtubw-Q [place] [address] Work Phone: Ferritin, Serumon 07-24-2021 Ferritin [Mass/Vol] 41 ug/L 8 - 150 MG-Ur ology-W [place] [address] Work Phone: Folate, Serumon 07-24-2021 Folate [Mass/Vol] 13.6 ng/mL >5.0 MG-Urol ogy-W [place] [address] Work Phone: Comment on above: Low <3.4Borderline 3 .4-5.0Normal >5.0. Biotin interference may cause falsely elevated results. Patients taking a Biotin dose of up to 5 mg/day should refrain from taking Biotin for 24 hours before sample collection. Providers may contact their local laboratory for further information. IO UA (automated w/o microsc opy)on 07-24-2021 Protein (U) [Mass/Vol] Negative YN[facility]fpfynd[facility] [address] Work Phone: IO UA (automated w/o microscopy) Negative XY-Ttqoqcs[facility] [address] Work Phone: IO UA (automated w/o microscopy) Normal (0.2-1.0 mg/dl) MG-Urolog y-W [facility] [address] Work Phone: IO UA (automated w/o microscopy) 5.5 1 MK-Ynmcrjo-N [facility] [address] Work Phone: IO UA (automated w/o microscopy) 1.020 1 TT-Pacyxlj-H [facility] [address] Work Phone: IO UA (automated w/o microscopy) Trace JN-Xquurcy-Q [place] [address] Work Phone: IO UA (automated w/o microscopy) Clear QW-Qdowgnm-K [facility] [address] Work Phone: IO UA (automated w/o microscopy) Yellow DS-Zanejqi-B [facility] [address] Work Phone: Laboratory - Chemistry and C hemistry - challengeon 07-24-2021 Albumin BCP dye [Mass/Vol] 4.5 g/dL 3.4 - 5.0 TT-Kknexnj-V [facility] [address] Work Phone: ALP [Catalytic activity/Vol] 98 U/L 33 - 110 SZ-Zdcaipw-Z [facility] [address] Work Phone: ALT With P-5'-P [Catalytic activity/Vol] 83 U/L above high threshold 7 - 45 PB-Izlrycu-Q [place] [id number] Work Phone: Comment on above: Patients treated wit h Sulfasalazine may generate falsely decreased results for ALT. Anion gap [Moles/Vol] 10 mmol/L 10 - 20 [place]uy[facility] Work Phone: AST With P-5'-P [Catalytic activity/Vol] 56 U/L above high threshold 9 - 39 QM-Sxhmgko-R [place] 7644101 Work Phone: Bilirubin [Mass/Vol] 0.4 mg/dL 0.0 - 1.2 MG-U rology-W [place] 7644101 Work Phone: Calcium [Mass/Vol] 9.5 mg/dL 8.6 - 10.6 MG-Uro logy-W [place] 7644101 Work Phone: Chloride [Moles/Vol] 108 mmol/L above high threshold 98 - 107 QA-Ulliemj-R [place] 7644101 Work Phone: CO2 [Moles/Vol] 31 mmol/L 21 - 32 MG-Urolog y-W [place] 7644101 Work Phone: Creatinine [Mass/Vol] 0.55 mg/dL See Below UM-Civoybv-B [place] 7644101 Work Phone: Comment on above: Reference Range: 0.5 0 - 1.05 Glucose [Mass/Vol] 108 mg/dL above high threshold 74 - 99 DP-Ftodhsf-Z [place] 7644101 Work Phone: Potassium [Moles/Vol] 3.9 mmol/L 3.5 - 5.3 XC-Xnbksqb-Z [place] 7644101 Work Phone: Protein [Mass/Vol] 7.0 g/dL 6.4 - 8.2 MG-Uro logy-W [place] 7644101 Work Phone: Sodium [Moles/Vol] 145 mmol/L 136 - 145 MG-Uro logy-W [place] 7644101 Work Phone: Urea nitrogen [Mass/Vol] 13 mg/dL 6 - 23 MO-Utdwgwi-R [place] 7644101 Work Phone: Magnesium, Serumon 09-23-202 1 Magnesium [Mass/Vol] 2.10 mg/dL See Below MG[facility] [address] Work Phone: Comment on above: Reference Range: 1.6 0 - 2.40 No Panel Informationon 07-24 >60 >60 JW-Echhcqr-P ninowibenedicto [facility] [address] Work Phone: Comment on above: CALCULATIONS OF LEW MATED GFR ARE PERFORMED USING THE MDRD STUDY EQUATION FOR THE IDMS-TRACEABLE CREATININE METHODS. CLIN CHEM 2007;53:766-72 TSH - Thyroid Stimulating Ho rmone, Serumon 07-24-2021 TSH Qn 1.79 m[IU]/L See Below TV-Whxoyrw-M ninowibenedicto [facility] [address] Work Phone: Comment on above: Reference Range: 0.4 4 - 3.98 TSH testing is performed using different testing methodology at [facility] than at other [facility]. Direct result comparisons should only be made within the same method. Thyroxine, Serum (T4)on 07-03 T4 [Mass/Vol] 8.6 ug/dL 4.5 - 11.1 [facility] [address] Work Phone: Triiodothyronine, Level (T3) on 07-24-2021 T3 [Mass/Vol] 98 ng/dL 60 - 200 [facility] [address] Work Phone: Vitamin B12, Serumon Cobalamin (Vitamin B12) [Mass/Vol] pg/mL Abnormal 211 - 911 RI[facility]hggfw[facility] [address] Work Phone: Tobacco Screening.on 021 Fall risk assessment a) No falls within the last year [facility] Work Phone: Fall risk assessment b) One or more fall s in the last year KJ[facility]wkuru[facility] [address] Work Phone: Tobacco use status CPHS b) No [facility] Work Phone: Tobacco Screening.on 021 Fall risk assessment b) One or more fall s in the last year [facility] Work Phone: Tobacco use status CP b) No [facility] Work Phone: Tobacco Screening.on 021 Fall risk assessment a) No falls within the last year SR-Iawagug-D [place] [address] Work Phone: Tobacco use status [facility] b) No BS-Nsjdtvf-J [place] [address] Work Phone: Tobacco Screening.on 021 Fall risk assessment a) No falls within the last year WW-Oraktsr-I [place] [address] Work Phone: Tobacco use status [facility] b) No RL-Jucbxgz-J [place] [address] Work Phone: Coronavirus 2019 RNA by PCR, Screening Asymptomticon 03-25-2021 Coronavirus 2019 RNA by PCR, Screening Asymptomtic Not detected Normal See Below ZE-Erpqhyw-M [place] [employer] [address] Work Phone: Comment on above: SOURCE: Nasal, Nasop haryngealReference Range: Not Detected.This assay is designed to detect the RdRp gene of SARS-CoV-2 via nucleic acid amplification. A Not Detected result does not preclude COVID-19 infection since the adequacy of sample collection and/or low viral burden may result in presence of viral nucleic acids below the clinical sensitivity of this test method. Fact sheet for providers: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 height 160 cm Kory Javon DO Work Phone: [facility] 07-07-2024 07:27-0400 Body temperature 97 [degF] Kory Alejandro DO Work Phone: [facility] 07-07-2024 07:27-0400 Diastolic blood pressure 78 mm[Hg] Kory Karlalla DO Work Phone: [facility] 07-07-2024 07:27-0400 Heart rate 72 /min Kory Karlalla DO Work Phone: [facility] 07-07-2024 07:27-0400 SaO2% (BldA) [Mass fraction] 98 % Kory Karlalla DO Work Phone: [facility] 07-07-2024 07:27-0400 Systolic blood pressure 119 mm[Hg] Kory Karlalla DO Work Phone: [facility] 05-16-2024 06:48-0400 Body height 160 cm Kory Tavarezlla DO Work Phone: [facility] 05-16-2024 06:48-0400 Body temperature 97 [degF] Kory Tavarezlla DO Work Phone: [facility] 05-16-2024 06:48-0400 Diastolic blood pressure 70 mm[Hg] Kory Tavarezlla DO Work Phone: [facility] 05-16-2024 06:48-0400 Heart rate 74 /min Kory Tavarezlla DO Work Phone: [facility] 05-16-2024 06:48-0400 SaO2% (BldA) [Mass fraction] 98 % Kory Karlalla DO Work Phone: [facility] 05-16-2024 06:48-0400 Systolic blood pressure 102 mm[Hg] Kory Karlalla DO Work Phone: [facility] 01-05-2024 07:08-0500 Diastolic blood pressure 74 mm[Hg] Kory Karlalla DO Work Phone: [facility] 01-05-2024 07:08-0500 Systolic blood pressure 112 mm[Hg] Kory Tavarezlla DO Work Phone: [facility] 10-08-2023 08:34-0500 Body height 160 cm Kory Tavarezlla DO Work Phone: [facility] 10-08-2023 08:34-0500 Body temperature 97.9 [degF] Kory Tavarezlla DO Work Phone: [facility] 10-08-2023 08:34-0500 Diastolic blood pressure 60 mm[Hg] Kory Tavarezlla DO Work Phone: [facility] 10-08-2023 08:34-0500 Heart rate 86 /min Kory Tavarezlla DO Work Phone: [facility] 10-08-2023 08:34-0500 SaO2% (BldA) [Mass fraction] 98 % Kory Tavarezlla DO Work Phone: [facility] 10-08-2023 08:34-0500 Systolic blood pressure 94 mm[Hg] Kory Tavarezlla DO Work Phone: [facility] 07-30-2023 07:28-0400 Body height 160 cm Kory Smitha DO Work Phone: [facility] 07-30-2023 07:28-0400 Body temperature 98.71 [degF] Kory Smitha DO Work Phone: [facility] 07-30-2023 07:28-0400 Diastolic blood pressure 62 mm[Hg] Kory Smitha DO Work Phone: [facility] 07-30-2023 07:28-0400 Heart rate 69 /min Kory Smitha DO Work Phone: [facility] 07-30-2023 07:28-0400 SaO2% (BldA) [Mass fraction] 99 % Kory Tavarezlla DO Work Phone: [facility] 07-30-2023 07:28-0400 Systolic blood pressure 91 mm[Hg] Kory Tavarezlla DO Work Phone: [facility] 07-29-2023 09:05-0400 Body height 160.02 cm Kory Vaishali Tavarezaugustine Work Phone: CX-Ssxhudx-Bvvbguu monica [facility] [address] Work Phone: 07-29-2023 09:05-0400 Body mass index (BMI) [Ratio] 21.08 kg/m2 Kory Alejandro Work Phone: OK-Ywbhkhd-Oujuwex e [facility] [address] Work Phone: 07-29-2023 09:05-0400 Body surface area Derived from formula 1.55 m2 Kory Alejandro Work Phone: AS-Bkqoikm-Vwiolcx e [facility] [address] Work Phone: 07-29-2023 09:05-0400 Body temperature 96.3 [degF] Kory Alejandro Work Phone: RR-Btpcryq-Xomclba e [facility] [address] Work Phone: 07-29-2023 09:05-0400 Body weight 53.98 kg Kory Alejandro Work Phone: ZI-Credtac-Amyifhb e [facility] [address] Work Phone: 07-29-2023 09:05-0400 Diastolic blood pressure 70 mm[Hg] Kory Alejandro Work Phone: DT-Hrpanog-Irosoeu e [facility] [address] Work Phone: 07-29-2023 09:05-0400 Heart rate 73 /min Kory Alejandro Work Phone: XF-Gyufggi-Jqahedn e [facility] [address] Work Phone: 07-29-2023 09:05-0400 Systolic blood pressure 124 mm[Hg] Kory Alejandro Work Phone: CN-Bnmggkj-Mnqxqes e [employer] [address] Work Phone: 06-02-2023 07:29-0400 Body height 160 cm Kory Alejandro DO Work Phone: [facility] 06-02-2023 07:29-0400 Body temperature 97.7 [degF] Kory Alejandro DO Work Phone: [facility] 06-02-2023 07:29-0400 Diastolic blood pressure 69 mm[Hg] Kory Smitha DO Work Phone: [facility] 06-02-2023 07:29-0400 Heart rate 79 /min Kory Smitha DO Work Phone: [facility] 06-02-2023 07:29-0400 SaO2% (BldA) [Mass fraction] 99 % Kory Alejandro DO Work Phone: [facility] 06-02-2023 07:29-0400 Systolic blood pressure 116 mm[Hg] Kory Alejandro DO Work Phone: [facility] 05-19-2023 06:59-0400 Body height 160 cm Kory Smitha DO Work Phone: [facility] 05-19-2023 06:59-0400 Body temperature 99.1 [degF] Kory Alejandro DO Work Phone: [facility] 05-19-2023 06:59-0400 Diastolic blood pressure 69 mm[Hg] Kory Alejandro DO Work Phone: [facility] 05-19-2023 06:59-0400 Heart rate 72 /min Kory Alejandro DO Work Phone: [facility] 05-19-2023 06:59-0400 SaO2% (BldA) [Mass fraction] 99 % Kory Smitha DO Work Phone: [facility] 05-19-2023 06:59-0400 Systolic blood pressure 105 mm[Hg] Kory Smitha DO Work Phone: [facility] 04-27-2023 07:45-0400 Body height 160 cm Kory Smitha DO Work Phone: [facility] 04-27-2023 07:45-0400 Body temperature 98.6 [degF] Kory Smitha DO Work Phone: [facility] 04-27-2023 07:45-0400 Diastolic blood pressure 63 mm[Hg] Kory Alejandro DO Work Phone: [facility] 04-27-2023 07:45-0400 Heart rate 68 /min Kory Alejandro DO Work Phone: [facility] 04-27-2023 07:45-0400 SaO2% (BldA) [Mass fraction] 100 % Kory Alejandro DO Work Phone: [facility] 04-27-2023 07:45-0400 Systolic blood pressure 93 mm[Hg] Kory Alejandro DO Work Phone: [facility] 01-28-2023 09:40-0400 Body height 160.02 cm Kory Alejandro Work Phone: WG-Hjsvudw-Bpfkdzd e [place] [address] Work Phone: 01-28-2023 09:40-0400 Body mass index (BMI) [Ratio] 21.08 kg/m2 Kory Alejandro Work Phone: XC-Ygsgfcv-Efiinpn e [place] [address] Work Phone: 01-28-2023 09:40-0400 Body surface area Derived from formula 1.55 m2 Kory Alejandro Work Phone: MO-Bolsowz-Hjovnmb e [place] [address] Work Phone: 01-28-2023 09:40-0400 Body temperature 97.9 [degF] Kory Alejandro Work Phone: HW-Ozmfrei-Rbxzuun e [employer] [address] Work Phone: 01-28-2023 09:40-0400 Body weight 53.98 kg Kory Alejandro Work Phone: QX-Akpsbak-Zmfcmzu e [employer] [address] Work Phone: 01-28-2023 09:40-0400 Diastolic blood pressure 80 mm[Hg] Kory Alejandro Work Phone: YC-Oyhofpr-Ywbtcgb e [facility] [address] Work Phone: 01-28-2023 09:40-0400 Systolic blood pressure 113 mm[Hg] Kory Alejandro Work Phone: NR-Pyqmfht-Qbiyixj e [facility] [address] Work Phone: 01-01-2023 07:58-0500 Body height 160 cm Kory Alejandro DO Work Phone: [facility] 01-01-2023 07:58-0500 Body temperature 97.9 [degF] Kory Smitha DO Work Phone: [facility] 01-01-2023 07:58-0500 Diastolic blood pressure 65 mm[Hg] Kory Smitha DO Work Phone: [facility] 01-01-2023 07:58-0500 Heart rate 86 /min Kory Alejandro DO Work Phone: [facility] 01-01-2023 07:58-0500 SaO2% (BldA) [Mass fraction] 99 % Kory Smitha DO Work Phone: [facility] 01-01-2023 07:58-0500 Systolic blood pressure 103 mm[Hg] Kory Smitha DO Work Phone: [facility] 11-27-2022 06:56-0500 Body height 160 cm Kory Smitha DO Work Phone: [employer] [facility] 11-27-2022 06:56-0500 Body temperature 97.81 [degF] Kory Smitha DO Work Phone: [facility] [facility] 11-27-2022 06:56-0500 Diastolic blood pressure 65 mm[Hg] Kory Smitha DO Work Phone: [facility] 11-27-2022 06:56-0500 Heart rate 71 /min Kory Smitha DO Work Phone: [facility] 11-27-2022 06:56-0500 SaO2% (BldA) [Mass fraction] 98 % Kory Alejandro DO Work Phone: [facility] 11-27-2022 06:56-0500 Systolic blood pressure 100 mm[Hg] Kory Alejandro DO Work Phone: [facility] 11-26-2022 08:23-0500 Body height 160.02 cm Kory Alejandro Work Phone: YT-Hvmdgdw-Flqurum e 2206 Work Phone: 11-26-2022 08:23-0500 Body mass index (BMI) [Ratio] 21.08 kg/m2 Kory Alejandro Work Phone: IV-Qobmxas-Ykhsqnx e 2206 Work Phone: 11-26-2022 08:23-0500 Body surface area Derived from formula 1.55 m2 Kory Alejandro Work Phone: SL-Ecvchhj-Hqcsofi e 2206 Work Phone: 11-26-2022 08:23-0500 Body temperature 97.3 [degF] Kory Alejandro Work Phone: KV-Rbpgltm-Yjaqfjx e 2206 Work Phone: 11-26-2022 08:23-0500 Body weight 53.98 kg Kory Alejandro Work Phone: DQ-Vwtjkqz-Wtnpggs e 2206 Work Phone: 11-26-2022 08:23-0500 Diastolic blood pressure 71 mm[Hg] Kory Alejandro Work Phone: YM-Ciowvhb-Inrqopp e 2206 Work Phone: 11-26-2022 08:23-0500 Heart rate 76 /min Kory Alejandro Work Phone: AU-Uwzkwgu-Rmbqmmr e 2206 Work Phone: 11-26-2022 08:23-0500 Systolic blood pressure 107 mm[Hg] Kory Alejandro Work Phone: DY-Nfmlosw-Ydaeyfp e 2207 Work Phone: 06-30-2022 08:17-0400 Body height 161.3 cm Pilo Ludwig Jr., MD Work Phone: [facility] 06-30-2022 08:17-0400 Body weight 54.43 kg Pilo Ludwig Jr., MD Work Phone: [facility] 06-30-2022 08:17-0400 Respiratory rate 18 /min Pilo Ludwig Jr., MD Work Phone: [facility] 05-28-2022 08:48-0400 Body height 160.02 cm Kory Alejandro Work Phone: NO-Lkkbsep-Pdrfy [place] Work Phone: 05-28-2022 08:48-0400 Diastolic blood pressure 69 mm[Hg] Kory Smitha Work Phone: TD-Uvghlzo-Cjuce [place] Work Phone: 05-28-2022 08:48-0400 Heart rate 85 /min Kory Smitha Work Phone: LD-Cyowkuj-Eprqz [place] Work Phone: 05-28-2022 08:48-0400 Systolic blood pressure 105 mm[Hg] Kory Smitha Work Phone: WJ-Autckrn-Jowmk [place] Work Phone: 04-24-2022 09:28-0400 Body height 160.02 cm Kory Smitha Work Phone: ZA-Hatusvgky-Nsxvu ban [facility] Work Phone: 04-24-2022 09:28-0400 Body mass index (BMI) [Ratio] 21.08 kg/m2 Kory Smitha Work Phone: JV-Ygkbitlne-Zjmck ban [facility] Work Phone: 04-24-2022 09:28-0400 Body surface area Derived from formula 1.55 m2 Kory Alejandro Work Phone: DW-Ppchrinqu-Yomch [facility] Work Phone: 04-24-2022 09:28-0400 Body weight 53.98 kg Kory Alejandro Work Phone: NO-Szotlrrpc-Pccxd ban [facility] Work Phone: 04-24-2022 09:28-0400 Diastolic blood pressure 68 mm[Hg] Kory Alejandro Work Phone: IA-Otbqzfmrl-Eckos [facility] Work Phone: 04-24-2022 09:28-0400 Diastolic blood pressure 63 mm[Hg] Kory Alejandro Work Phone: ID-Yagjfmluq-Ttlpl [facility] Work Phone: 04-24-2022 09:28-0400 Diastolic blood pressure 70 mm[Hg] Kory Alejandro Work Phone: YN-Mgmmhmkrz-Iskng [facility] Work Phone: 04-24-2022 09:28-0400 Systolic blood pressure 110 mm[Hg] Kory Alejandro Work Phone: BJ-Wxcpkdieb-Zbfqh [facility] Work Phone: 04-24-2022 09:28-0400 Systolic blood pressure 104 mm[Hg] Kory Alejandro Work Phone: UV-Psrtdxnsw-Xidys [facility] Work Phone: 04-24-2022 09:28-0400 Systolic blood pressure 99 mm[Hg] Kory Alejandro Work Phone: HR-Nekfgibcw-Tphjt [facility] Work Phone: 04-24-2022 09:28-0400 72 1 Kory Alejandro Work Phone: QA-Vymlwlhsu-Agxyy [facility] Work Phone: Comment on above: [employer] 04-24-2022 09:28-0400 69 1 Kory Alejandro Work Phone: WB-Byesmovpi-Arkhy ban [facility] Work Phone: Comment on above: [employer] 04-24-2022 09:28-0400 82 1 Kory Alejandro Work Phone: PN-Yskdsqyum-Qydys ban [facility] Work Phone: Comment on above: [employer] 03-05-2022 08:35-0400 Body height 160.02 cm Kory Alejandro Work Phone: PK-Twgocmb-Rsgrk MAC2 303 Work Phone: 03-05-2022 08:35-0400 Body mass index (BMI) [Ratio] 21.08 kg/m2 Kory Alejandro Work Phone: TP-Utbocof-Bqkct MAC2 303 Work Phone: 03-05-2022 08:35-0400 Body surface area Derived from formula 1.55 m2 Kory Alejandro Work Phone: YV-Ojtqpci-Tiqgt MAC2 303 Work Phone: 03-05-2022 08:35-0400 Body weight 53.98 kg Kory Alejandro Work Phone: FI-Cvavfzw-Stxvk MAC2 303 Work Phone: 03-05-2022 08:35-0400 Diastolic blood pressure 73 mm[Hg] Kory Alejandro Work Phone: ZP-Isginze-Oqzje MAC[address] Work Phone: 03-05-2022 08:35-0400 Heart rate 89 /min Kory Alejandro Work Phone: BP-Jjpvnxf-Ucidy [address] Work Phone: 03-05-2022 08:35-0400 Systolic blood pressure 121 mm[Hg] Kory Alejandro Work Phone: VX-Voqrscg-Jqqgc MAC[address] 303 Work Phone: 03-04-2022 15:27-0400 Diastolic blood pressure 70 mm[Hg] Kory Alejandro Work Phone: RH-Fadeszo-Kqaxl MAC[address] 303 Work Phone: 03-04-2022 15:27-0400 Heart rate 79 /min Kory Alejandro Work Phone: YT-Admciyk-Jaxre MAC[address] 303 Work Phone: 03-04-2022 15:27-0400 SaO2% (BldA) [Mass fraction] 99 % Kory Alejandro Work Phone: RI-Cojuoke-Sjvob MAC[address] 303 Work Phone: 03-04-2022 15:27-0400 Systolic blood pressure 104 mm[Hg] Kory Alejandro Work Phone: WC-Voujazg-Wjjla [facility] 303 Work Phone: 02-19-2022 08:55-0400 Body height 160.02 cm Kory Alejandro Work Phone: PG-Uocvfnd-Iqodyey e [place] [address] Work Phone: 02-19-2022 08:55-0400 Body temperature 97.3 [degF] Kory Alejandro Work Phone: DM-Pzmqpkj-Jomgdav e [employer] [address] Work Phone: 02-19-2022 08:55-0400 Diastolic blood pressure 65 mm[Hg] Kory Alejandro Work Phone: OX-Mmoumuf-Oizdogu e [employer] [address] Work Phone: 02-19-2022 08:55-0400 Heart rate 73 /min Kory Alejandro Work Phone: VN-Rslxuno-Xinsgnp e [facility] [address] Work Phone: 02-19-2022 08:55-0400 Systolic blood pressure 101 mm[Hg] Kory Alejandro Work Phone: VD-Pgpmllb-Hsrepnv e [facility] [address] Work Phone: 12-25-2021 09:53-0500 Body height 161.29 cm Kory Alejandro Work Phone: PH-Ppvqiaj-Fnggc MAC2 303 Work Phone: 12-25-2021 09:53-0500 Body mass index (BMI) [Ratio] 20.75 kg/m2 Kory Alejandro Work Phone: XZ-Bgxkdsr-Unvqg MAC[address] 303 Work Phone: 12-25-2021 09:53-0500 Body surface area Derived from formula 1.56 m2 Kory Alejandro Work Phone: PT-Otuqqbm-Vzsgr [facility] 303 Work Phone: 12-25-2021 09:53-0500 Body weight 53.98 kg Kory Alejandro Work Phone: EH-Zreespv-Qetds MAC[address] 303 Work Phone: 12-25-2021 09:53-0500 Diastolic blood pressure 79 mm[Hg] Kory Alejandro Work Phone: TK-Qkzhamu-Dwpqh MAC[address] 303 Work Phone: 12-25-2021 09:53-0500 Heart rate 85 /min Kory Alejandro Work Phone: KF-Emrkwth-Cspvi [facility] 303 Work Phone: 12-25-2021 09:53-0500 Systolic blood pressure 121 mm[Hg] Kory Alejandro Work Phone: RK-Huqfzyc-Ynjcn [facility] Work Phone: 11-27-2021 10:23-0500 Body height 161.29 cm Kory Alejandro Work Phone: AL-Zzgysmn-Asroq [facility] [address] Work Phone: 11-27-2021 10:23-0500 Body mass index (BMI) [Ratio] 20.75 kg/m2 Kory Alejandro Work Phone: QZ-Nrblyaa-Msraf [facility] [address] Work Phone: 11-27-2021 10:23-0500 Body surface area Derived from formula 1.56 m2 Kory Alejandro Work Phone: CF-Srilldy-Cxsuv [facility] Work Phone: 11-27-2021 10:23-0500 Body weight 53.98 kg Kory Alejandro Work Phone: ZU-Pkgqnbo-Rgusq [facility] Work Phone: 11-27-2021 10:23-0500 Diastolic blood pressure 82 mm[Hg] Kory Alejandro Work Phone: HJ-Pdyatav-Dajmo [facility] Work Phone: 11-27-2021 10:23-0500 Heart rate 77 /min Kory Alejandro Work Phone: MG-Wlrnciv-Wdigf MAC[address] Work Phone: 11-27-2021 10:23-0500 Systolic blood pressure 119 mm[Hg] Kory Alejandro Work Phone: HH-Veiakqx-Uybfv MAC[address] 303 Work Phone: 11-06-2021 09:12-0500 Body height 162.56 cm Kory Alejandro Work Phone: [facility] Work Phone: 11-06-2021 09:12-0500 Body mass index (BMI) [Ratio] 20.25 kg/m2 Kory Alejandro Work Phone: [facility] [address] Work Phone: 11-06-2021 09:12-0500 Body surface area Derived from formula 1.56 m2 Kory Alejandro Work Phone: [facility] [address] Work Phone: 11-06-2021 09:12-0500 Body weight 53.52 kg Kory Alejandro Work Phone: [facility] [address] Work Phone: 11-06-2021 09:12-0500 Diastolic blood pressure 76 mm[Hg] Kory Alejandro Work Phone: [facility] [address] Work Phone: 11-06-2021 09:12-0500 Heart rate 95 /min Kory Alejandro Work Phone: [facility] [address] Work Phone: 11-06-2021 09:12-0500 Respiratory rate 18 /min Kory Alejandro Work Phone: [facility] [address] Work Phone: 11-06-2021 09:12-0500 SaO2% (BldA) [Mass fraction] 97 % Kory Alejandro Work Phone: [facility] [address] Work Phone: 11-06-2021 09:12-0500 Systolic blood pressure 129 mm[Hg] Kory Alejandro Work Phone: [facility] [address] Work Phone: 10-09-2021 08:41-0500 Body height 162.56 cm Kory Alejandro Work Phone: BO-Sjjgrtm-Rcaedif e [employer] [address] Work Phone: 10-09-2021 08:41-0500 Body mass index (BMI) [Ratio] 20.25 kg/m2 Kory Alejandro Work Phone: OB-Anhxfut-Wonlsro e [employer] [address] Work Phone: 10-09-2021 08:41-0500 Body surface area Derived from formula 1.56 m2 Kory Alejandro Work Phone: NL-Aofmabr-Vavqxdo e [employer] [address] Work Phone: 10-09-2021 08:41-0500 Body temperature 98.1 [degF] Kory Alejandro Work Phone: LB-Mtnrrqn-Dfbspkz e [employer] [address] Work Phone: 10-09-2021 08:41-0500 Body weight 53.52 kg Kory Alejandro Work Phone: HI-Uyfvbhj-Rpbozgj e [place] [address] Work Phone: 10-09-2021 08:41-0500 Diastolic blood pressure 75 mm[Hg] Kory Alejandro Work Phone: ZY-Betdzkk-Xdjehdk e [employer] [address] Work Phone: 10-09-2021 08:41-0500 Heart rate 80 /min Kory Alejandro Work Phone: AB-Iabvgsd-Dejvoij e [employer] [address] Work Phone: 10-09-2021 08:41-0500 Systolic blood pressure 116 mm[Hg] Koyr Alejandro Work Phone: HD-Arackrx-Hupwlxm e [employer] [address] Work Phone: 10-02-2021 09:49-0500 8 1 Kory Alejandro Work Phone: [facility] Work Phone: Comment on above: [employer] 08-28-2021 07:38-0400 Diastolic blood pressure 81 mm[Hg] Kory Alejandro Work Phone: [facility] 300 DO Work Phone: 08-28-2021 07:38-0400 Heart rate 101 /min Kory Alejandro Work Phone: [facility] 300 DO Work Phone: 08-28-2021 07:38-0400 Systolic blood pressure 126 mm[Hg] Kory Alejandro Work Phone: [facility] 300 DO Work Phone: 08-28-2021 07:38-0400 Systolic blood pressure pt refused weight so no bmi Kory Alejandro Work Phone: [facility] 300 DO Work Phone: 08-20-2021 12:26-0400 Diastolic blood pressure 68 mm[Hg] Kory Alejandro Work Phone: DD-Uwuzpzdeph-Bzmk na Work Phone: 08-20-2021 12:26-0400 Heart rate 96 /min Kory Alejandro Work Phone: NX-Hegjojcoes-Ebut na Work Phone: 08-20-2021 12:26-0400 SaO2% (BldA) [Mass fraction] 98 % Kory Alejandro Work Phone: WB-Licoekrsdv-Hmcc na Work Phone: 08-20-2021 12:26-0400 Systolic blood pressure 128 mm[Hg] Kory Smitha Work Phone: TU-Ehgtmixbgb-Hwno na Work Phone: 07-24-2021 11:55-0400 Body height 162.56 cm Kory Alejandro Work Phone: DL-Lhmnmnl-Nhmmdyn e [employer] [address] Work Phone: 07-24-2021 11:55-0400 Body mass index (BMI) [Ratio] 20.25 kg/m2 Kory Alejandro Work Phone: ZU-Aiyborb-Kvoewjk e [employer] [address] Work Phone: 07-24-2021 11:55-0400 Body surface area Derived from formula 1.56 m2 Kory Alejandro Work Phone: EB-Lodlejm-Eutjqos e [employer] [address] Work Phone: 07-24-2021 11:55-0400 Body temperature 98.1 [degF] Kory Alejandro Work Phone: WZ-Hkqfinn-Iankatd e [employer] [address] Work Phone: 07-24-2021 11:55-0400 Body weight 53.52 kg Kory Alejandro Work Phone: CN-Afheduf-Yvgmuqx e [employer] [address] Work Phone: 07-24-2021 11:55-0400 Diastolic blood pressure 72 mm[Hg] Kory Alejandro Work Phone: FJ-Nkckxln-Sebytoo e [employer] [address] Work Phone: 07-24-2021 11:55-0400 Heart rate 77 /min Kory Alejandro Work Phone: WW-Eezeaal-Hzsgtuo e [employer] [address] Work Phone: 07-24-2021 11:55-0400 Systolic blood pressure 113 mm[Hg] Kory Alejandro Work Phone: KI-Rdkteat-Srlxrez e [employer] [address] Work Phone: 07-04-2021 14:14-0400 Body height 162.56 cm Kory Alejandro Work Phone: [facility] Work Phone: 07-04-2021 14:14-0400 Body mass index (BMI) [Ratio] 20.25 kg/m2 Kory Alejandro Work Phone: [facility] Work Phone: 07-04-2021 14:14-0400 Body surface area Derived from formula 1.56 m2 Kory Alejandro Work Phone: [facility] Work Phone: 07-04-2021 14:14-0400 Body temperature 98.6 [degF] Kory Alejandro Work Phone: [facility] Work Phone: 07-04-2021 14:14-0400 Body weight 53.52 kg Kory Alejandro Work Phone: [facility] Work Phone: 07-04-2021 14:14-0400 Diastolic blood pressure 72 mm[Hg] Kory Alejandro Work Phone: [facility] Work Phone: 07-04-2021 14:14-0400 Heart rate 71 /min Kory Alejandro Work Phone: [facility] Work Phone: 07-04-2021 14:14-0400 Respiratory rate 18 /min Kory Alejandro Work Phone: [facility] Work Phone: 07-04-2021 14:14-0400 SaO2% (BldA) [Mass fraction] 98 % Kory Alejandro Work Phone: [facility] Work Phone: 07-04-2021 14:14-0400 Systolic blood pressure 117 mm[Hg] Kory Alejandro Work Phone: [facility] Work Phone: 05-21-2021 08:35-0400 Body height 161.29 cm Kory Smitha Work Phone: [facility] Work Phone: 05-21-2021 08:35-0400 Body mass index (BMI) [Ratio] 20.4 kg/m2 Kory Smitha Work Phone: [facility] Work Phone: 05-21-2021 08:35-0400 Body surface area Derived from formula 1.55 m2 Kory Smitha Work Phone: [facility] Work Phone: 05-21-2021 08:35-0400 Body temperature 37.3 [degF] Kory Smitha Work Phone: [facility] Work Phone: 05-21-2021 08:35-0400 Body weight 53.07 kg Kory Smitha Work Phone: [facility] Work Phone: 05-21-2021 08:35-0400 Diastolic blood pressure 59 mm[Hg] Kory Smitha Work Phone: [facility] Work Phone: 05-21-2021 08:35-0400 Heart rate 77 /min Kory Smitha Work Phone: [facility] Work Phone: 05-21-2021 08:35-0400 Respiratory rate 18 /min Kory Tavarezlla Work Phone: [facility] Work Phone: 05-21-2021 08:35-0400 Systolic blood pressure 101 mm[Hg] Kory Tavarezlla Work Phone: [facility] Work Phone: 04-21-2021 08:16-0400 Body height 161.29 cm Kory Alejandro Work Phone: LU-Mgkejhn-Lmsxjts e [employer] [address] Work Phone: 04-21-2021 08:16-0400 Body mass index (BMI) [Ratio] 20.92 kg/m2 Kory Alejandro Work Phone: HS-Pgllrla-Bbgksqq e [employer] [address] Work Phone: 04-21-2021 08:16-0400 Body surface area Derived from formula 1.57 m2 Kory Alejandro Work Phone: XW-Ahfftzb-Kwtwoxo e [employer] [address] Work Phone: 04-21-2021 08:16-0400 Body temperature 36.7 [degF] Kory Alejandro Work Phone: KJ-Ysgxwgz-Gfuaoff e [employer] [address] Work Phone: 04-21-2021 08:16-0400 Body weight 54.43 kg Kory Alejandro Work Phone: JN-Mxaiwul-Lputufh e [employer] [address] Work Phone: 04-21-2021 08:16-0400 Diastolic blood pressure 77 mm[Hg] Kory Alejandro Work Phone: XT-Chziegv-Yadrlsk e [employer] [id number] Work Phone: 04-21-2021 08:16-0400 Heart rate 85 /min Kory Alejandro Work Phone: NW-Habetot-Xmodmaw e [employer] [address] Work Phone: 04-21-2021 08:16-0400 Respiratory rate 18 /min Kory Alejandro Work Phone: MQ-Vxwvfsw-Ppgaehl e [employer] [address] Work Phone: 04-21-2021 08:16-0400 Systolic blood pressure 124 mm[Hg] Kory Alejandro Work Phone: RN-Wihdlrc-Aphjssk e [employer] [id number] Work Phone: 04-10-2021 13:15-0400 Body height 160.02 cm Kory Alejandro Work Phone: GH-Hcltjlr-Tezdhqv e [employer] [id number] Work Phone: 04-10-2021 13:15-0400 Body mass index (BMI) [Ratio] 20.73 kg/m2 Kory Alejandro Work Phone: LV-Lrdejhd-Uhgnuqx e [employer] [id number] Work Phone: 04-10-2021 13:15-0400 Body surface area Derived from formula 1.54 m2 Kory Alejandro Work Phone: LD-Angrgsi-Qlpterl e [employer] [id number] Work Phone: 04-10-2021 13:15-0400 Body temperature 98.6 [degF] Kory Alejandro Work Phone: VG-Iquasey-Tpaotix e [employer] [address] Work Phone: 04-10-2021 13:15-0400 Body weight 53.07 kg Kory Alejandro Work Phone: IN-Nqmdgok-Wdlpywi e [employer] [address] Work Phone: 04-10-2021 13:15-0400 Diastolic blood pressure 68 mm[Hg] Kory Alejandro Work Phone: HI-Iszmyyq-Izozodm e [employer] [id number] Work Phone: 04-10-2021 13:15-0400 Heart rate 76 /min Kory Alejandro Work Phone: NX-Vteyawq-Bvjtxfl e [employer] [address] Work Phone: 04-10-2021 13:15-0400 Systolic blood pressure 105 mm[Hg] Kory Alejandro Work Phone: EX-Cgmdwpg-Bkjhnur e [place] [address] Work Phone: 03-26-2021 09:25-0400 Body temperature 100.22 [degF] Kory Alejandro Other Phone: [facility] 03-26-2021 09:25-0400 Diastolic blood pressure 70 mm[Hg] Kory Alejandro Other Phone: [facility] 03-26-2021 09:25-0400 Heart rate 86 /min Kory Alejandro Other Phone: [facility] 03-26-2021 09:25-0400 Respiratory rate 20 /min Kory Alejandro Other Phone: [facility] 03-26-2021 09:25-0400 SaO2% (BldA) [Mass fraction] 96 % Kory Alejandro Other Phone: [facility] 03-26-2021 09:25-0400 Systolic blood pressure 115 mm[Hg] Kory Alejandro Other Phone: [facility] 01-27-2021 23:40-0400 Body Temperature 97.9 [degF] Dangelo Ring [facility] Work Phone: 01-27-2021 23:40-0400 BP Diastolic 89 mm[Hg] Dangelo Ring [facility] Work Phone: 01-27-2021 23:40-0400 BP Systolic 124 mm[Hg] Dangelo Ring [facility] Work Phone: 01-27-2021 23:40-0400 Pulse (Heart Rate) 88 /min Dangelo Ring [facility] Work Phone: 01-27-2021 23:40-0400 Pulse Oximetry 97 % Dangelo Ring [facility] Work Phone: 01-27-2021 23:40-0400 Respiratory Rate 16 /min Dangelo Ring [facility] Work Phone: 10-05-2019 20:25-0500 Body Temperature 97.59 [degF] Saleem UnderwoodDi[facility] CenterCommunity [facility]els[facility] [place] 10-05-2019 20:25-0500 BP Diastolic 97 mm[Hg] [facility] [place] 10-05-2019 20:25-0500 BP Systolic 143 mm[Hg] Sale[facility] [place] 10-05-2019 20:25-0500 Pulse (Heart Rate) 71 /min [facility] [place] 10-05-2019 20:25-0500 Pulse Oximetry 100 % [facility] [place] 10-05-2019 20:25-0500 Respiratory Rate 18 /min Saleem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 [facility] 06-27-2025 Note HNO ID: [id number] Author: MALIKA WAY MA Service: ? Author Type: Dispatcher [employer]ley Type: Progress Notes Filed: 06/27/2025 13:19 Note Text: POPULATION HEALTH NAVIGATION OUTREACH Action/FYI Patient responded to [employer] message and declines all assistance and would like to not be contacted again. PCP updated to No PCP. Anca Hsu to Me (Selected Message) TM 06/27/25 1:[address], I will never ever come back there. I had one appointment with that doctor and he falsified documentations on my initial visit. He said he was an expert in CRPS and sees thousands of them and CRPS is rare and so he's lying he said also I had no hearing loss. I wear bilateral hearing aids. He totally blew that out of water, i'm on medication that needs to be seen every three months by a physician and a year is not three months. Take me off your email list. I don't want hear anything else about doctors there after that experience. Anca Hsu Reason for Outreach Returned Call/MyChart Patient Contacted: Spoke to patient/parent/or legal guardian Patient identified by name and date of : Yes Returned call/MyChart actions taken: Patient declined: Patient Declines Navigation Scheduling / Outreach PCP field updated Navigation Signature: Malika Way MA June 27, 2025 1:13 PM [facility] 06-18-2025 Note HNO ID: [id number] Author: MALIKA WAY MA Service: ? Author Type: Dispatcher [employer] Trolley Type: Progress Notes Filed: 06/18/2025 15:33 Note Text: POPULATION HEALTH NAVIGATION OUTREACH Action/FYI Attempted to contact patient, no answer, and unable to leave a message requesting a return call to verify/update PCP. MyChart message also sent. Reason for Outreach Attribution: Provider Off-boarding Care Gaps due: Establish Care Appointment Patient Contacted: Unable or unnecessary to reach patient: Unable to leave message MyChart message sent Navigation Signature: Malika Way MA June 18, 2025 3:32 PM [facility] 06-18-2025 Note Patient Outreach (NE TNAV) ANCA HSU ([id number]) 1960 F Date Time Provider Department 06/18/[address] During your visit today, we recorded the following information about you: Malika Way MA 06/18/2025 3:33 PM Signed POPULATION HEALTH NAVIGATION OUTREACH Action/FYI Attempted to contact patient, no answer, and unable to leave a message requesting a return call to verify/update PCP. [employer] message also sent. Reason for Outreach Attribution: Provider Off-boarding Care Gaps due: Establish Care Appointment Patient Contacted: Unable or unnecessary to reach patient: Unable to leave message MyChart message sent Navigation Signature: Maliak Way MA June 18, 2025 3:[address] MA 06/27/2025 1:19 PM Addendum POPULATION HEALTH NAVIGATION OUTREACH Action/FYI Patient responded to Actions message and declines all assistance and would like to not be contacted again. PCP updated to No PCP. Anca Hsu to Me (Selected Message) TM 06/27/25 1:[address], I will never ever come back there. I had one appointment with that doctor and he falsified documentations on my initial visit. He said he was an expert in CRPS and sees thousands of them and CRPS is rare and so he's lying he said also I had no hearing loss. I wear bilateral hearing aids. He totally blew that out of water, i'm on medication that needs to be seen every three months by a physician and a year is not three months. Take me off your email list. I don't want hear anything else about doctors there after that experience. Anca Hsu Reason for Outreach Returned Call/MyChart Patient Contacted: Spoke to patient/parent/or legal guardian Patient identified by name and date of : Yes Returned call/MyChart actions taken: Patient declined: Patient Declines Navigation Scheduling / Outreach PCP field updated Navigation Signature: Malika Way MA June 27, 2025 1:13 PM Allergies As of Date: 06/18/2025 Noted Allergy Reaction DEMORAL (MEPERIDINE) 10/01/2015 10 - Anaphylaxis PINE NUT 11/01/1969 2 - Rash 4 - Hives 9 - Itching 12 - Shortness of Breath BUPIVACAINE HCL 07/18/2020 10 - Anaphylaxis ADHESIVE TAPE (ROSINS) 10/01/2015 2 - Rash Comments: Rash and blisters, Surgical glue as well BLUE DYE 07/01/2022 4 - Hives Comments: Ultrasound gel CARAFATE (SUCRALFATE) 07/01/2022 14 - Other: See Comments Comments: Oral skin sloughing CHLORHEXIDINE 07/01/2022 14 - Other: See Comments Comments: Petechiae, blisters LATEX 06/24/2022 14 - Other: See Comments Comments: Patient is allergic to the powder in latex gloves; develops blisters LIDOCAINE 08/03/2023 10 - Anaphylaxis MARCAINE (BUPIVACAINE) 07/01/2022 10 - Anaphylaxis MOXIFLOXACIN 06/18/2023 7 - Swelling Comments: Eye drop form, eye, tongue and lips swelling NOVACAINE (PROCAINE) 07/01/2022 10 - Anaphylaxis SULFA (SULFONAMIDE ANTIBIOTICS) 07/01/2022 2 - Rash TREE NUTS 07/03/2022 10 - Anaphylaxis Comments: Walnuts WALNUT 07/10/2022 10 - Anaphylaxis Date Reviewed: 06/15/2025 Reviewed by: Matilda Green LPN - Fully Assessed Reason for Visit: Population Health Navigation Outreach [3910] Cmt: PCP Offboarding - Dr. Rocky Tatum Prescriptions as of 06/27/2025 - Olopatadine (PATADAY ONCE DAILY RELIEF) 0.2 % drop Use 1 drop in both eyes once daily. - cycloSPORINE (RESTASIS) 0.05 % ophthalmic emulsion Use 1 Drop in both eyes two times a day. - baclofen 10 mg diazePAM 10 mg lidocaine 2% vaginal suppository (CPD) Use 1 Suppository vaginally daily at bedtime. - cyanocobalamin, vitamin B-12, (VITAMIN B-12 ORAL) Take by mouth. - busPIRone (BUSPAR) 5 mg tablet Take 1 tablet (5 mg) by mouth 2 times daily for 60 doses. - hydrOXYchloroQUINE (PLAQUENIL) 200 mg tablet 200 mg at night, 100 mg in the morning - CALCIUM CARBONATE ORAL Take 1,200 mg by mouth once daily. - nortriptyline (PAMELOR) 10 mg capsule - cetirizine (ZYRTEC) 10 mg tablet Take 10 mg by mouth once daily. - mometasone (ELOCON) 0.1 % ointment APPLY TO AFFECTED AREA TOPICALLY EVERY DAY - hydrocortisone (ANUSOL-HC) 25 mg suppository 25 mg by RECTAL route as needed. - COLLAGEN MISC 6,000 mg two times a day. - folic acid 800 mcg tablet Take 800 mcg by mouth two times a week. Takes twice per day - BIOTIN ORAL Take 1 tablet by mouth once daily. Pt states she takes 5000mg - Multivitamin capsule Take 1 capsule by mouth once daily. - Ascorbic Acid 1,000 mg tablet Take 1,000 mg by mouth twice daily. - Alpha Lipoic Acid 600 mg cap Take 600 mg by mouth twice daily. - cloNIDine HCl (CATAPRES) 0.1 mg tablet Take 0.1 mg by mouth daily at bedtime. - gabapentin (NEURONTIN) 300 mg capsule Take 300 mg by mouth three times a day. - ondansetron (ZOFRAN) 8 mg tablet Take 8 mg by mouth every 8 hours as needed. - SUMAtriptan (more content not included)... [facility] 06-15-2025 Note HNO ID: [id number] Author: PILO LUDWIG JR, MD Service: ? Author Type: Physician Type: Progress Notes Filed: 06/15/2025 08:24 Note Text: Patient presents with: Right Thumb - Established Patient, Follow Up, Post Op, Pain: Post op 04/09/202501/08 pain-sharp, throbbing PROCEDURE Right thumb carpometacarpal arthroplasty Right carpal tunnel release 04/09/2025 HISTORY OF PRESENT ILLNESS Anca Hsu presents for post operative follow up 9 weeks from surgery. She is doing OK today. She has started strengthening exercises. Current Concerns: Itching of her incision Pain control:Well controlled Currently taking pain medication:No Fever, chills or other signs of infection: none PHYSICAL EXAMINATION No erythema, cellulitis or drainage Incision lines are intact, no drainage noted. Scars are maturing nicely ROM: Still with limited motion of thumb, but improving Sensation:Normal sensation Brisk cap refill IMAGING No new imaging obtained. ASSESSMENT AND PLAN: Arthritis of carpometacarpal (cmc) joint of right thumb (primary encounter diagnosis) Carpal tunnel syndrome of right wrist I want her to continue to work on motion and strengthening. I will see her back as needed. Patient was instructed to call the office with any questions and/or concerns Scribe Attestation: By signing my name below, I, Anai Gary MA, attest that this documentation has been prepared under the direction and in the presence of Pilo Ludwig Jr., MD. Electronically Signed: Anai Gary MA, Scribe. June 15, 2025 8:11 AM. Clinician Attestation Statement: The information in this document, created by the medical coding instructor for me, accurately reflects the services I personally performed and the decisions made by me. I have reviewed and approved this document for accuracy. Pilo Ludwig MD Please note: This note has been produced using speech recognition software and may contain errors related to that system including grammar, punctuation, spelling, gender and words and phrases that may be inappropriate. [facility] 06-08-2025 Note HNO ID: [id number] Author: CORDELL HERNANDEZ APRN.[employer] PROFESSOR Service: ? Author Type: Nurse Practitioner Type: Progress Notes Filed: 06/08/2025 14:52 Note Text: [facility] Subjective Anca Hsu is a 64 year old adult. Patient presents with: Ear Pain: Right ear pain. Started mildly on Wednesday night. Progressively got worse. Head aches. Chills. Body aches. Right side of face pain. HPI Right Ear Pain: - Onset: Wednesday evening. - Initially thought to be due to fluid; increased Zyrtec to BID with no relief. - Pain progressively worsened despite taking Tylenol. - History of recurrent right ear issues over the past 1.5 years. - Not wearing hearing aids today; reports a part of the hearing aid is missing. Review of Systems Ears/Nose/Mouth/Throat: (+) right ear pain Objective BP 106/73 (BP Site: Left Arm, BP Position: Sitting, BP Cuff Size: Regular Adult) Pulse 76 Temp 36.8 ?C (98.2 ?F) (Left Tympanic) Resp 16 SpO2 96% PAST MEDICAL HISTORY Diagnosis Date CRPS (complex regional pain syndrome type I) right hip and leg; RLQ Depression Fibromyalgia Generalized anxiety disorder Kidney stones Migraine headache without aura OAB (overactive bladder) Osteoarthritis of multiple joints Post traumatic stress disorder (PTSD) PAST SURGICAL HISTORY Procedure Laterality Date COLONOSCOPY 2018 Diverticulosis, hemorrhoids and colon polyps DERMABRASION REGIONAL OTHER THAN FACE Right 2019 pt denies this surgery GASTRIC BYPASS HX 2019 L'SCOPE CHOLECYSTECTOMY 2020 L'SCOPE DX W/WO BRUSHINGS/WASHINGS x 3 for endometriosis in the LIGATE FALLOPIAN TUBE 1986 PAST SURGICAL HISTORY OF 1998 Tubal reversal PAST SURGICAL HISTORY OF 2020 Removal of vaginal mesh PAST SURGICAL HISTORY OF Left 2022 ARTHROPLASTY CARPOMETACARPAL JOINTS (Left thumb carpal-metacarpal arthroplasty) (Left) DECOMPRESSION NERVE MEDIAN CARPAL TUNNEL (Left) PAST SURGICAL HISTORY OF Right 04/09/2025 Thumb Repair TOTAL HIP REPLACEMENT Right 12/2019 VAGINAL HYSTERECTOMY 2019 ovaries remain; bladder sling, rectocele repair ALLERGIES Demoral [Meperidine], [place] Nut, Bupivacaine Hcl, Adhesive Tape (Rosins), Blue Dye, Carafate [Sucralfate], Chlorhexidine, Latex, Lidocaine, Marcaine [Bupivacaine], Moxifloxacin, Novacaine [Procaine], Sulfa (Sulfonamide Antibiotics), Tree Nuts, and [place] MEDICATIONS Olopatadine (PATADAY ONCE DAILY RELIEF) 0.2 % drop Use 1 drop in both eyes once daily. cycloSPORINE (RESTASIS) 0.05 % ophthalmic emulsion Use 1 Drop in both eyes two times a day. baclofen 10 mg diazePAM 10 mg lidocaine 2% vaginal suppository (CPD) Use 1 Suppository vaginally daily at bedtime. cyanocobalamin, vitamin B-12, (VITAMIN B-12 ORAL) Take by mouth. busPIRone (BUSPAR) 5 mg tablet Take 1 tablet (5 mg) by mouth 2 times daily for 60 doses. hydrOXYchloroQUINE (PLAQUENIL) 200 mg tablet 200 mg at night, 100 mg in the morning CALCIUM CARBONATE ORAL Take 1,200 mg by mouth once daily. cetirizine (ZYRTEC) 10 mg tablet Take 10 mg by mouth once daily. mometasone (ELOCON) 0.1 % ointment APPLY TO AFFECTED AREA TOPICALLY EVERY DAY hydrocortisone (ANUSOL-HC) 25 mg suppository 25 mg by RECTAL route as needed. COLLAGEN MISC 6,000 mg two times a day. folic acid 800 mcg tablet Take 800 mcg by mouth two times a week. Takes twice per day BIOTIN ORAL Take 1 tablet by mouth once daily. Pt states she takes 5000mg Multivitamin capsule Take 1 capsule by mouth once daily. Ascorbic Acid 1,000 mg tablet Take 1,000 mg by mouth twice daily. Alpha Lipoic Acid 600 mg cap Take 600 mg by mouth twice daily. cloNIDine HCl (CATAPRES) 0.1 mg tablet Take 0.1 mg by mouth daily at bedtime. ondansetron (ZOFRAN) 8 mg tablet Take 8 mg by mouth every 8 hours as needed. SUMAtriptan (IMITREX) 100 mg tablet One stat and repeat in 2 hours , no more than 4 per week zpmjthfs-cgkfrbwbf-kteivbrgrgimo e (CORTISPORIN) 3.5-10,000-1 mg/mL-unit/mL-% otic suspension Use 4 drops in the right ear three times a day for 5 days. nortriptyline (PAMELOR) 10 mg capsule gabapentin (NEURONTIN) 300 mg capsule Take 300 mg by mouth three times a day. FAMILY HISTORY Problem Relation Age of Onset Diabetes Mother Cervical Cancer Mother Colon Polyps Mother other (other) Father Ischemic Heart Disease Father Cervical Cancer Sister other (other) Sister Diabetes Sister Ischemic Heart Disease Sister Colon Polyps Sister Cervical Cancer Sister Diabetes Maternal Grandmother other (HTN) Maternal Grandmother other (CVA) Maternal Grandmother Breast Cancer Maternal Grandmother other (bladder cancer) Maternal Grandmother other (other) Maternal Grandfather Diabetes Maternal Grandfather Ischemic Heart Disease Maternal Grandfather Diabetes Paternal Grandmother Diabetes Paternal Grandfather Diabetes Daughter Colon Cancer No Family History Social History Tobacco Use Smoking status: Former Current packs/day: 0.00 Types: (more content not included)... [facility] 05-29-2025 Note HNO ID: [id number] Author: JEMMA MCKEE MD Service: ? Author Type: Physician Type: Progress Notes Filed: 05/29/2025 09:54 Note Text: Assessment and Plan 1. Dry eye syndrome both eyes -Main complaint is scratchy sensation right eye > left eye Dry Eye Treatment: Artificial tears Effective?: Partially 2. Combined forms of age-related cataract of both eyes -reports worsening vision - has changed glasses 3 times this year. They work at the beginning then vision blurry again (sees Dr. Booth) -significant glare at night -s/p TORIC posterior chamber intraocular lens (PCIOL) right eye 06/11/23 -looks good -poor compliance with drops 3. Anxiety -unable to do refraction, dilation, or any testing today -severe - will need general anesthesia -has had many reactions to drugs before 4. Ptosis both eyes -makes it difficult to read at night 5. Hydroxychloroquine use - Indication: mixed connective tissue disease - no signs of toxicity today on exam - OCT: normal - Visual Field 10-2: normal - has been using plaquenil 200 mg daily - The recommended dosage is the lower of 5 mg/kg/day based on real body weight or 6.5 mg/kg/day based on ideal body weight as described in the most recent AAO plaquenil screening guidelines - Risk factors for toxicity include daily dose and duration of use, renal disease, tamoxifen use, history of retinal or macular disease - Anca Hsu has no previous weight in system Plan: -continue Restasis twice a day both eyes -will try pataday both eyes for grittiness and allergies -precautions -seeing Dr. 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 I have seen and examined Anca Hsu. I have discussed the case and the management of this patient's care with the Resident/Fellow, if applicable. I also have reviewed and agree with the assessment and plan as stated above and agree with all of its relevant components. Jemma Mckee MD [facility] 05-22-2025 Note HNO ID: [id number] Author: PILO LUDWIG JR, MD Service: ? Author Type: Physician Type: Progress Notes Filed: 05/22/2025 08:11 Note Text: Patient presents with: Right Thumb - Post Op PROCEDURE Right thumb carpometacarpal arthroplasty Right carpal tunnel release 04/09/2025 HISTORY OF PRESENT ILLNESS Anca Hsu presents for post operative follow up 6 weeks from surgery. She is doing well. She is wearing her forearm-based splint. Current Concerns: None Pain control: States pain is 3/10 Currently taking pain medication:No Fever, chills or other signs of infection: None PHYSICAL EXAMINATION No erythema, cellulitis or drainage Incision lines are intact, no drainage noted. Scars are maturing nicely ROM: Able to touch thumb tip to other finger tips Sensation: Intact to light touch Thumb CMC joint is stable Brisk cap refill IMAGING None ASSESSMENT AND PLAN: Arthritis of carpometacarpal (cmc) joint of right thumb (primary encounter diagnosis) Carpal tunnel syndrome of right wrist I want her to come out of her splint at this time. This will help her ROM. She can start passive ROM with therapist now and can start strengthening in 2 weeks. I will see her back in 4 weeks. Pt given lifting restrictions while she is out of splint. Patient was instructed to call the office with any questions and/or concerns Clinician Attestation Statement: The information in this document, created by the medical coding instructor for me, accurately reflects the services I personally performed and the decisions made by me. I have reviewed and approved this document for accuracy. Pilo Ludwig MD Please note: This note has been produced using speech recognition software and may contain errors related to that system including grammar, punctuation, spelling, gender and words and phrases that may be inappropriate. [facility] 04-20-2025 Note HNO ID: [id number] Author: OMAR NYE Tech Service: ? Author Type: Propagator Type: Progress Notes Filed: 04/20/2025 11:54 Note Text: The patient was very unpleasant and hostile today with myself. She refused to answer several questions asked for charting purpose, for example when going over medications, allergies, and pain, and as well refused a current weight. She was also very condescending, angry, overall not cooperative. When asked, patient refused to remove brace even after assistance was offered. Notified provider of above prior to going into room. Gypsy Virk [facility] 04-20-2025 Note HNO ID: [id number] Author: PILO LUDWIG JR, MD Service: ? Author Type: Physician Type: Progress Notes Filed: 05/19/2025 07:27 Note Text: Patient presents with: Right Thumb - Post Op PROCEDURE Right thumb carpometacarpal arthroplasty Right carpal tunnel release 04/09/2025 HISTORY OF PRESENT ILLNESS Anca Hsu presents for post operative follow up 11 days from surgery. She is wearing her brace. Current Concerns: Pain Pain control: Not controlled Currently taking pain medication: No Fever, chills or other signs of infection: None PHYSICAL EXAMINATION No erythema, cellulitis or drainage Incision lines are intact, no drainage noted. Scars are maturing nicely ROM: not tested Sensation:Normal sensation Brisk cap refill IMAGING No new imaging obtained. ASSESSMENT AND PLAN: Arthritis of carpometacarpal (cmc) joint of right thumb (primary encounter diagnosis) Carpal tunnel syndrome of right wrist I will send her to [facility] for a forearm based thumb spica brace. I will see her back in 4 weeks. Patient was instructed to call the office with any questions and/or concerns Scribe Attestation: By signing my name below, I, Anai Gary MA, attest that this documentation has been prepared under the direction and in the presence of Pilo Ludwig Jr., MD. Electronically Signed: Anai Gary MA, Scribe. April 20, 2025 8:25 AM. Clinician Attestation Statement: The information in this document, created by the medical coding instructor for me, accurately reflects the services I personally performed and the decisions made by me. I have reviewed and approved this document for accuracy. Pilo Ludwig MD Please note: This note has been produced using speech recognition software and may contain errors related to that system including grammar, punctuation, spelling, gender and words and phrases that may be inappropriate. [facility] 04-09-2025 Note HNO ID: [id number] Author: FABIOLA ROMEO RN Service: ? Author Type: Registered Nurse Type: Nursing Progress Note Filed: 04/09/2025 12:12 Note Text: Patient not wanting to use ice [facility] 04-09-2025 Note HNO ID: [id number] Author: FABIOLA ROMEO RN Service: ? Author Type: Registered Nurse Type: Nursing Progress Note Filed: 04/09/2025 12:06 Note Text: Patient into chair without difficulty Hearing aides in patient states she is ready for discharge [facility] 04-09-2025 Note HNO ID: [id number] Author: DENISE TORRES APRN.CHAIN SALES CONSULTANT Service: ? Author Type: Nurse Advertising Coordinator Type: Anesthesia Procedure Notes Filed: 04/09/2025 08:52 Note Text: ANESTHESIOLOGY PROCEDURE NOTE Airway General Information Procedure Start Time/Medication Administration: 04/09/2025 8:35 AM Procedure End Time: 04/09/2025 8:37 AM Patient location during procedure: OR Consent Obtained: Yes Patient identity confirmed: arm band Staffing Anesthesiologist: Terence Lomeli MD CHAIN SALES CONSULTANT: Torres, Denise, HAIR WORKER.CHAIN SALES CONSULTANT Performed by: CHAIN SALES CONSULTANT Indications and Patient Condition Indications for airway management: anesthesia and airway protection Preoxygenated: yes anesthesia circuit Patient position: sniffing Method: asleep Final Airway Details Final airway type: supraglottic airway Number of attempts at approach: 1 Final Supraglottic Airway: i-gel Size 1 Seal Adequate: yes Failed airway: no SIGNATURE: Denise Torres APRN.CRNA PATIENT NAME: Anca Hsu DATE: April 09, 2025 TIME: 8:51 AM CSN: [id number] [facility] 03-19-2025 Note HNO ID: [id number] Author: ALEKSANDR RICHEY APRN.CNP Service: Anesthesiology Author Type: Nurse Practitioner Type: Progress Notes Filed: 03/19/2025 14:07 Note Text: Summary: Anesthseia Reviewed allergy list with Dr. De La Torre. Noted allergy to lidocaine. Unable to have block. Also reviewed case from 07/2022. Patient stated she was in excruciating pain after surgery in 2021- patient discussed with Dr. Ludwig. Per Dr. Gavin patient may have narcotics and tylenol in PACU. [facility] 01-09-2025 Note HNO ID: [id number] Author: PLIO LUDWIG JR, MD Service: ? Author Type: Physician Type: Progress Notes Filed: 01/09/2025 08:55 Note Text: 01/09/2025 :1960 Anca Hsu HISTORY OF CHIEF COMPLAINT: The patient complains of pain at the base of the right thumb. There was no recent injury or traumatic event that preceded the symptoms. There is pain with any forceful gripping or grasping motion of the hand. Specifically there is pain when taking lids off a jars or even turning doorknobs. The patient denies any numbness or tingling and otherwise has no complaints today. PAST MEDICAL HISTORY Diagnosis Date CRPS (complex regional pain syndrome type I) right hip and leg; RLQ Depression Fibromyalgia Generalized anxiety disorder Kidney stones Migraine headache without aura OAB (overactive bladder) Osteoarthritis of multiple joints Post traumatic stress disorder (PTSD) PAST SURGICAL HISTORY Procedure Laterality Date COLONOSCOPY 2018 Diverticulosis, hemorrhoids and colon polyps DERMABRASION REGIONAL OTHER THAN FACE Right 2020 GASTRIC BYPASS HX 2019 L'SCOPE CHOLECYSTECTOMY 2020 L'SCOPE DX W/WO BRUSHINGS/WASHINGS x 3 for endometriosis in the LIGATE FALLOPIAN TUBE 1986 PAST SURGICAL HISTORY OF 1998 Tubal reversal PAST SURGICAL HISTORY OF 2020 Removal of vaginal mesh TOTAL HIP REPLACEMENT Right 12/2019 VAGINAL HYSTERECTOMY 2019 ovaries remain; bladder sling, rectocele repair Social History Tobacco Use Smoking status: Former Current packs/day: 0.00 Types: Cigarettes Start date: 1971 Quit date: 1991 Years since quittin.2 Smokeless tobacco: Never Vaping Use Vaping status: Never Used Substance Use Topics Alcohol use: Yes Comment: occasional social occasion-rare Drug use: Never Medications: Current Outpatient Medications Medication Sig Dispense Refill baclofen 10 mg diazePAM 10 mg lidocaine 2% vaginal suppository (CPD) Use 1 Suppository vaginally daily at bedtime. cycloSPORINE (RESTASIS) 0.05 % ophthalmic emulsion Use 1 Drop in both eyes two times a day. 180 Each 0 cyanocobalamin, vitamin B-12, (VITAMIN B-12 ORAL) Take by mouth. busPIRone (BUSPAR) 5 mg tablet Take 1 tablet (5 mg) by mouth 2 times daily for 60 doses. hydrOXYchloroQUINE (PLAQUENIL) 200 mg tablet Take 1.5 tablets (300 mg) by mouth once daily. CALCIUM CARBONATE ORAL Take 1,200 mg by mouth once daily. cetirizine (ZYRTEC) 10 mg tablet Take 10 mg by mouth once daily. mometasone (ELOCON) 0.1 % ointment APPLY TO AFFECTED AREA TOPICALLY EVERY DAY hydrocortisone (ANUSOL-HC) 25 mg suppository 25 mg by RECTAL route as needed. COLLAGEN MISC 6,000 mg two times a day. folic acid 800 mcg tablet Take 800 mcg by mouth two times a week. Takes twice per day BIOTIN ORAL Take 1 tablet by mouth once daily. Pt states she takes 5000mg Multivitamin capsule Take 1 capsule by mouth once daily. Ascorbic Acid 1,000 mg tablet Take 1,000 mg by mouth twice daily. Alpha Lipoic Acid 600 mg cap Take 600 mg by mouth twice daily. cloNIDine HCl (CATAPRES) 0.1 mg tablet Take 0.1 mg by mouth daily at bedtime. ondansetron (ZOFRAN) 8 mg tablet Take 8 mg by mouth every 8 hours as needed. SUMAtriptan (IMITREX) 100 mg tablet One stat and repeat in 2 hours , no more than 4 per week nortriptyline (PAMELOR) 10 mg capsule TAKE 1-2 CAPSULE ORALLY AT BEDTIME (Patient not taking: Reported on 06/13/2024) gabapentin (NEURONTIN) 300 mg capsule Take 300 mg by mouth three times a day. No current facility-administered medications for this visit. ALLERGIES Allergen Reactions Demoral [Meperidine] Anaphylaxis Hale Nut Rash, Hives, Itching, Shortness of Breath Bupivacaine Hcl Anaphylaxis Adhesive Tape (Maura* Rash Rash and blisters, Surgical glue as well Blue Dye Hives Ultrasound gel Carafate [Sucralfat* Other: See Comments Oral skin sloughing Chlorhexidine Other: See Comments Petechiae, blisters Latex Other: See Comments Patient is allergic to the powder in latex gloves; develops blisters Lidocaine Anaphylaxis Marcaine [Bupivacai* Anaphylaxis Moxifloxacin Swelling Eye drop form, eye, tongue and lips swelling Novacaine [Procaine] Anaphylaxis Sulfa (Sulfonamide * Rash Tree Nuts Anaphylaxis Walnuts [place] Anaphylaxis Resp 18 Ht 162.6 cm (5' 4) Wt 54.4 kg (120 lb) BMI 20.60 kg/m? PHYSICAL EXAMINATION: General: Anca is a well developed, well nourished adult Psyche: Anca is alert and oriented and cooperative to our examination Skin: Skin condition is healthy without rashes or erythema. Cadiovascular: There is a palpable radial pulse and brisk cap refill distally. Neck: Supple with no JVD Lymph: There is no palpable epitrochlear Pulmonary: Anca has non labored breathing. There is no evidence of cyanosis. There is no clubbing of his fingernails. Anca has no pursed lips. Neuro: Anca is alert and oriented x3. There are no focal neurologic deficits. (more content not included)... [facility] 11-13-2024 Telephone encounter Note Referral to Dr Nichols pended for dx and doctor's signature [facility] 11-13-2024 Miscellaneous Notes Referral to Dr Nichols pended for dx and doctor's signature Pt sent message in my chart ----- Message from Kory Alejandro DO sent at 11/04/2024 9:27 AM EST ----- Call patient and tell her recent labs for workup for hypoglycemia are negative. There is no evidence of thyroid issues, renal issues or overactive pancreatic insulin levels that would drive her glucose levels down. So I am unsure of the cause of her recurrent hypoglycemic events, and recommend an Endocrinology consult if she agrees. Get me list of endocrinologists she may see if she agrees to referral. documented in this encounter [facility] 11-06-2024 Telephone encounter Note Pt sent message in my chart [facility] 11-06-2024 Telephone encounter Note ----- Message from Kory Alejandro DO sent at 11/04/2024 9:27 AM EST ----- Call patient and tell her recent labs for workup for hypoglycemia are negative. There is no evidence of thyroid issues, renal issues or overactive pancreatic insulin levels that would drive her glucose levels down. So I am unsure of the cause of her recurrent hypoglycemic events, and recommend an Endocrinology consult if she agrees. Get me list of endocrinologists she may see if she agrees to referral. [facility] 10-26-2024 Note HNO ID: [id number] Author: MARCI WILL PT Service: ? Author Type: Physical Therapist Type: Progress Notes Filed: 10/26/2024 10:12 Note Text: 10/26/2024 [facility] PHYSICAL THERAPY DISCONTINUANCE OF CARE Plan of Care Period: Start of Care Date: 01/25/24 Last Visit Date: 03/20/2024 Therapy Program: The following is a summary of the interventions provided for this episode of care; Therapeutic exercise and Neuromuscular re-education Assessment: The following is the goal status: Goals for Episode of Care: Updated 03/20/24 Porter in home exercise program. NOT MET, program initiated 03/20/24 Patient will decrease pain rating by 2 points to meet minimal clinical important difference for numeric pain rating scale. NOT TESTED Patient will improve 5 time sit to stand to < or = 35 seconds to demonstrate improvement in functional lower extremity strength. NOT TESTED Normal gait. NOT MET Patient Goals: decrease pain - NOT MET Based on the most recent progress report, patient was progressing slower than expected toward functional goals based on pain levels and documented subjective information on progress. Reason for Discontinuation of Care: Patient has not returned to therapy or scheduled additional follow-up appointments. Marci Will, PT [facility] 10-19-2024 History of Present illness Narrative Images from the original note were not included. [facility] - [address] [facility] [id number] Visit type: Established Patient Reason for Visit: Follow-up (3 months ) Assessment / Plan: Anca was seen today for follow-up. Diagnoses and all orders for this visit: Complex regional pain syndrome type 1 of right lower extremity (Primary) Comments: Uncontrolled patient defers alternate referral or med change, continue gabapentin and clonidine MCTD (mixed connective tissue disease) (HCC) Comments: Apparently stable on Plaquenil Hypoglycemia Comments: Unsure of etiology, urged patient for workup for lab. She will think about it Orders: - C-Peptide; Future - Proinsulin; Future - Insulin; Future - T4, free; Future - T3; Future - Basic metabolic panel; Future - C-Peptide - Proinsulin - Insulin - T4, free - T3 - Basic metabolic panel Other migraine without status migrainosus, not intractable Other orders - ondansetron (Zofran) 8 MG tablet; Take 1 tablet (8 mg) by mouth every 8 hours as needed for nausea or vomiting. - baclofen (Lioresal) 10 MG tablet; 10 mg tab compounded to be taken vaginally q day Subjective: Patient ID: Anca Hsu is a 64 y.o. female. HPI patient has chronic right hip and leg pain on gabapentin for complex regional pain syndrome presents for refill on that product. Also taking clonidine. Not really content with quality of pain relief but deferring med changes. Of note she plans to make an appointment for orthopedic surgeon at the recommendations of her previous hip surgeon Dr. Duron. Review of Systems apparently diagnosed with mixed connective tissue disease by at [facility]. Plaquenil 300 mg a day being pretty well-tolerated. 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 Her Lynn is very ill with metastatic cancer. 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 Had profound hypoglycemia at last lab in July. It was at 1:00 in the afternoon she apparently eaten as well and her glucose level was 46. Remaining lab was generally well. History of hypoglycemic reactions through the years. No meds that would cause that. She has gained weight in the last years and eats pretty appropriately. Allergies Allergen Reactions Lidocaine Anaphylaxis Other reaction(s): Unknown Moxifloxacin Swelling and Anaphylaxis Lips and tongue swelling and eye lid Nuts [Cashew Nut Oil] Shortness of breath Other reaction(s): Tongue swelling Walnuts Hale Hives, Itching, Shortness of breath and Dermatitis Other reaction(s): Dermatitis, shortness of breath Hale Nuts Shortness of breath Bupivacaine Other reaction(s): anaphylaxis Bupivacaine Hcl Other reaction(s): anaphylaxis Chlorhexidine Other reaction(s): petichiae rash Gyne-Moistrin Hives Latex Other reaction(s): hives Other reaction(s): hives Meperidine Other reaction(s): Other (See Comments) Mental sx Meperidine Hcl Other reaction(s): ? Procaine Other reaction(s): anaphylaxis Sucralfate Other reaction(s): Other (See Comments) Skin came off in mouth Sulfa Antibiotics Sulfamethoxazole Ultrasound Gel Hives and Itching Blue Dyes (Parenteral) Hives and Itching Wound Dressings Rash Current Outpatient Medications on File Prior to Visit Medication Sig Dispense Refill cycloSPORINE (Restasis) 0.05 % ophthalmic emulsion Administer 1 drop into both eyes every 12 hours. [DISCONTINUED] nortriptyline (Pamelor) 10 MG capsule Take 10 mg by mouth Nightly. [DISCONTINUED] tamsulosin (Flomax) 0.4 MG 24 hr capsule Take 0.4 mg by mouth daily. acetaminophen (Tylenol) 500 MG tablet Take by mouth. Alpha-Lipoic Acid 600 MG capsule Take 600 mg by mouth. Ascorbic Acid (vitamin C) 1000 MG tablet Take 1,000 mg by mouth in the morning and 1,000 mg in the evening. biotin 10 MG capsule Every 24 hours. busPIRone (Buspar) 5 MG tablet Take 1 tablet (5 mg) by mouth 2 times daily for 60 doses. 180 tablet 1 CALCIUM PO Take 1,200 mg by mouth daily. cloNIDine (Catapres) 0.1 MG tablet TAKE 1 TABLET BY MOUTH EVERY DAY 90 tablet 1 gabapentin (Neurontin) 300 MG capsule TAKE 1 CAPSULE BY MOUTH THREE TIMES DAILY 90 capsule 2 hydrocortisone (Anusol-HC) 25 MG suppository Date: 07/23/2020 09:49:00 EDT hydroxychloroquine (Plaquenil) 200 MG tablet Take 200 mg by mouth Nightly. Takes 100 mg in am Magnesium 400 MG capsule Take 400 mg by mouth daily. Multiple Vitamin (Multi Vitamin) tablet Every 24 hours. SUMAtriptan (Imitrex) 100 MG tablet TAKE 1 TABLET BY MOUTH at on set of headache, may repeat in 2 hours if needed. no more than 4 tablets per week 9 tablet 5 UNABLE TO FIND Take 6,000 mg by mouth in the morning and 6,000 mg in the evening. Collagen . vit A,C and B-ovhaut-ywecydkr (Ocuvite) tablet [DISCONTINUED] ondansetron (Zofran) 8 MG tablet Take 1 tablet (8 mg) by mouth every 8 hours as needed for nausea or vomiting. 20 tablet 2 No current facility-administered medications on file prior to visit. Patient Active Problem List Diagnosis Fatty liver Osteoarthritis of right hip Lumbar degenerative disc disease Migraine headache Hearing aid worn Complex regional pain syndrome type 1 of right lower extremity Varicose veins of right lower extremity Lumbar foraminal stenosis History of depression Family history of diabetes mellitus (DM) Ex-smoker Fibromyalgia Osteopenia History of bariatric surgery Gotti's palsy Social History Tobacco Use Smoking status: Former Current packs/day: 0.00 Types: Cigarettes Quit date: 09/13/1991 Years since quittin.1 Smokeless tobacco: Never Substance Use Topics Alcohol use: Yes Past Surgical History: Procedure Laterality Date BLADDER REPAIR 06/2020 [facility] CATARACT EXTRACTION 06/2023 CHOLECYSTECTOMY 03/2021 Dr. Hercules COLONOSCOPY 12/2017 [place] - small polyp - rech due 2022- pt defering CYSTOCELE REPAIR 06/2020 EXPLORATORY LAPAROTOMY 1996 endometriosis GASTRIC BYPASS 2018 in [place] OTHER SURGICAL HISTORY tubal reversal PARTIAL HYSTERECTOMY 06/2020 still has ovaries/ [place]- Dr. Quesada Aposalist PELVIC LAPAROSCOPY 03/[address] Barbosa RECTOCELE REPAIR 06/2020 [facility] SALPINGECTOMY 06/2020 TONSILLECTOMY AND ADENOIDECTOMY (HISTORICAL) TOTAL HIP ARTHROPLASTY Right 09/2020 Dr. Duron TUBAL LIGATION 1987 UPPER GASTROINTESTINAL ENDOSCOPY 11/[address] Mtz UPPER GASTROINTESTINAL ENDOSCOPY 2017 [place]- mild gastritis UPPER GASTROINTESTINAL ENDOSCOPY 01/2022 Dr[facility] Gaxiola, [facility] Family History Problem Relation Name Age of Onset Cervical cancer Mother Felisa Bolanos 29 Rheum arthritis Mother Felisa Bolanos Diabetes Mother Felisa Bolanos diet cont, alive age 84 Heart failure Mother Felisa Bolanos Kidney disease Father Florian Bolanos stroke Dementia Father Florian Bolanos age 87 in 06/24 Atrial fibrillation Father Florian Bolanos Cancer Father Florian Bolanos melanoma Diabetes Sister Aline oral rx and insulin Multiple sclerosis Sister Aline Cervical cancer Sister Aline COPD Sister Aline smoker Heart attack Sister Aline alive age 63 Parkinsonism Sister Kae alive age 56 Alcohol abuse Sister Kae not close Cervical cancer Sister Kae Clotting disorder Son Link Other Son Link POTS Other Cousin Spinal musc atrophy, age 8 months Pes cavus Other Objective: There were no vitals taken for this visit. Physical Exam exam was unchanged. Blood pressure 118/72. Pulse in the 80s. No acute distress. No neck masses or adenopathy. No thyroid lesions. Heart is regular without ectopy or murmurs. Lungs are clear. Abdomen scaphoid without obvious masses hepatosplenomegaly ascites or adenopathy. She has a small small skin breakdown of the umbilicus but not Yennifer. White hip is flexed and painful to move. She has chronic trace edema of that calf and foot on the right side. Unable to do thorough exam of the right leg and foot due to her sensitivity. documented in this encounter [facility] 10-09-2024 Telephone encounter Note Recent Visits Date Type Provider Dept 07/07/24 Office Visit Kory Alejandro DO [facility] 05/16/24 Office Visit Kory Alejandro DO [facility] 01/05/24 Office Visit Kory Alejandro DO [facility] Showing recent visits within past 365 days and meeting all other requirements Future Appointments Date Type Provider Dept 10/19/24 Appointment DO [facility] 01/01/25 Appointment Kory Alejandro DO [facility] Showing future appointments within next 90 days and meeting all other requirements Requested Prescriptions Pending Prescriptions Disp Refills cloNIDine (Catapres) 0.1 MG tablet [Pharmacy Med Name: clonidine HCl 0.1 mg tablet] 30 tablet 5 Sig: TAKE 1 TABLET BY MOUTH EVERY DAY Provider: Kory Alejandro DO Verified pharmacy: yes Verified day(s) supplied: yes Verified refill(s) needed (previous prescription showing no refills in chart): Yes Have you received any controlled medications from any other provider? N/A Overdue for visit: No If yes - patient scheduled? Yes Most recent labs completed in chart? Yes Hypertension: No results found for: NA, K, EGFR, BUN, CREATININE [facility] 10-09-2024 Miscellaneous Notes Recent Visits Date Type Provider Dept 07/07/24 Office Visit Kory Alejandro, DO [facility] 05/16/24 Office Visit Kory Alejandro, DO [facility] 01/05/24 Office Visit Kory Alejandro, DO [facility] Showing recent visits within past 365 days and meeting all other requirements Future Appointments Date Type Provider Dept 10/19/24 Appointment Kory Alejandro, DO [facility] 01/01/25 Appointment Kory Alejandro DO [facility] Showing future appointments within next 90 days and meeting all other requirements Requested Prescriptions Pending Prescriptions Disp Refills cloNIDine (Catapres) 0.1 MG tablet [Pharmacy Med Name: clonidine HCl 0.1 mg tablet] 30 tablet 5 Sig: TAKE 1 TABLET BY MOUTH EVERY DAY Provider: Kory Alejandro DO Verified pharmacy: yes Verified day(s) supplied: yes Verified refill(s) needed (previous prescription showing no refills in chart): Yes Have you received any controlled medications from any other provider? N/A Overdue for visit: No If yes - patient scheduled? Yes Most recent labs completed in chart? Yes Hypertension: No results found for: NA, K, EGFR, BUN, CREATININE documented in this encounter [facility] 08-28-2024 Telephone encounter Note Recent Visits Date Type Provider Dept 07/07/24 Office Visit Kory Alejandro, DO [facility] 05/16/24 Office Visit Kory Alejandro DO [facility] 01/05/24 Office Visit Kory Alejandro DO [facility] 10/08/23 Office Visit Kory Alejandro DO [facility] Showing recent visits within past 365 days and meeting all other requirements Future Appointments Date Type Provider Dept 10/19/24 Appointment Kory AlejandroDO [facility] Showing future appointments within next 90 days and meeting all other requirements Requested Prescriptions Pending Prescriptions Disp Refills SUMAtriptan (Imitrex) 100 MG tablet [Pharmacy Med Name: sumatriptan 100 mg tablet] 9 tablet 2 Sig: TAKE 1 TABLET BY MOUTH at on set of headache, may repeat in 2 hours if needed. no more than 4 tablets per week Provider: Kory Alejandro DO Verified pharmacy: yes Verified day(s) supplied: yes Verified refill(s) needed (previous prescription showing no refills in chart): Yes Have you received any controlled medications from any other provider? N/A Overdue for visit: No If yes - patient scheduled? Yes Most recent labs completed in chart? No None [facility] 08-28-2024 Miscellaneous Notes Recent Visits Date Type Provider Dept 07/07/24 Office Visit Kory Vaishali Javon, DO [facility] 05/16/24 Office Visit Kory Alejandro DO [facility] 01/05/24 Office Visit Kory Alejandro, DO [facility] 10/08/23 Office Visit Kory Alejandro DO [facility] Showing recent visits within past 365 days and meeting all other requirements Future Appointments Date Type Provider Dept 10/19/24 Appointment Kory Alejandro DO [facility] Showing future appointments within next 90 days and meeting all other requirements Requested Prescriptions Pending Prescriptions Disp Refills SUMAtriptan (Imitrex) 100 MG tablet [Pharmacy Med Name: sumatriptan 100 mg tablet] 9 tablet 2 Sig: TAKE 1 TABLET BY MOUTH at on set of headache, may repeat in 2 hours if needed. no more than 4 tablets per week Provider: Kory Alejandro DO Verified pharmacy: yes Verified day(s) supplied: yes Verified refill(s) needed (previous prescription showing no refills in chart): Yes Have you received any controlled medications from any other provider? N/A Overdue for visit: No If yes - patient scheduled? Yes Most recent labs completed in chart? No None documented in this encounter [facility] 07-27-2024 Telephone encounter Note Recent Visits Date Type Provider Dept 07/07/24 Office Visit Kory Alejandro DO [facility] 05/16/24 Office Visit Kory Alejandro DO [facility] 01/05/24 Office Visit Kory Alejandro DO [facility] 10/08/23 Office Visit Kory Alejandro, DO [facility] 07/30/23 Office Visit Kory Alejandro, DO [facility] Showing recent visits within past 365 days and meeting all other requirements Future Appointments Date Type Provider Dept 10/19/24 Appointment Kory Alejandro DO [facility] Showing future appointments within next 90 days and meeting all other requirements Requested Prescriptions Pending Prescriptions Disp Refills busPIRone (Buspar) 5 MG tablet [Pharmacy Med Name: buspirone 5 mg tablet] 180 tablet 1 Sig: Take 1 tablet (5 mg) by mouth 2 times daily for 60 doses. Provider: Kory Alejandro DO Verified pharmacy: yes Verified day(s) supplied: yes Verified refill(s) needed (previous prescription showing no refills in chart): Yes Have you received any controlled medications from any other provider? N/A Overdue for visit: N/A If yes - patient scheduled? N/A Most recent labs completed in chart? [facility] 07-27-[facility] Miscellaneous Notes Recent Visits Date Type Provider Dept 07/07/24 Office Visit Kory Alejandro, DO [facility] 05/16/24 Office Visit Kory Alejandro, DO [facility] 01/05/24 Office Visit Kory Alejandro, DO [facility] 10/08/23 Office Visit Kory Alejandro, DO [facility] 07/30/23 Office Visit Kory Alejandro, DO [facility] Showing recent visits within past 365 days and meeting all other requirements Future Appointments Date Type Provider Dept 10/19/24 Appointment Kory AlejandroDO [facility] Showing future appointments within next 90 days and meeting all other requirements Requested Prescriptions Pending Prescriptions Disp Refills busPIRone (Buspar) 5 MG tablet [Pharmacy Med Name: buspirone 5 mg tablet] 180 tablet 1 Sig: Take 1 tablet (5 mg) by mouth 2 times daily for 60 doses. Provider: Kory Alejandro DO Verified pharmacy: yes Verified day(s) supplied: yes Verified refill(s) needed (previous prescription showing no refills in chart): Yes Have you received any controlled medications from any other provider? N/A Overdue for visit: N/A If yes - patient scheduled? N/A Most recent labs completed in chart? N/A documented in this encounter [facility] 07-13-2024 Telephone encounter Note Noted [facility] 07-13-2024 Miscellaneous Notes Noted Name of caller: Anca Contact phone number: [phone] Relationship to Patient: patient Provider: Javon Practice: [facility] Chief Complaint/Reason for Call: Patient called in to schedule a work physical for a job that begins on 07/19/24. Advised patient PCP had no availability within this time frame but offered to schedule for Ceferino Hanna's next available appointment. Patient was very upset by this and replied you expect me to see an unqualified medical personnel then hung up on me. FYI. Best time of day caller can be reached: n/a Patient advised that office/PCP has 24-48 business hours to return their call: N/A documented in this encounter [facility] 07-12-2024 Telephone encounter Note Name of caller: Anca Contact phone number: [phone] Relationship to Patient: patient Provider: Javon Practice: [facility] Chief Complaint/Reason for Call: Patient called in to schedule a work physical for a job that begins on 07/19/24. Advised patient PCP had no availability within this time frame but offered to schedule for Ceferino Hanna's next available appointment. Patient was very upset by this and replied you expect me to see an unqualified medical personnel then hung up on me. FYI. Best time of day caller can be reached: n/a Patient advised that office/PCP has 24-48 business hours to return their call: N/A [facility] 07-07-2024 Telephone encounter Note Pt did not want to pay co-pay till after visit [facility] 07-07-2024 Miscellaneous Notes Pt did not want to pay co-pay till after visit documented in this encounter [facility] 07-07-2024 History of Present illness Narrative Images from the original note were not included. [facility] [address] [place] [address] [facility] [id number] Visit type: Established Patient Reason for Visit: Follow-up (Med check ) and Surgical Consult (Bladder botox ) Assessment / Plan: Anca was seen today for follow-up and surgical consult. Diagnoses and all orders for this visit: Preoperative clearance (Primary) - ECG 12 lead; Future - ECG 12 lead Complex regional pain syndrome type 1 of right lower extremity Comments: Uncontrolled pain, increase gabapentin 3 times daily continue clonidine Orders: - XR chest 2 views; Future OAB (overactive bladder) History of bariatric surgery Comments: Noted, needs labs done Orders: - CBC auto differential; Future - Comprehensive metabolic panel; Future - TSH; Future - Vitamin B12; Future - Ferritin; Future - Vitamin D Deficiency Screening (Vit D 25); Future - Magnesium; Future - Folate; Future - CBC auto differential - Comprehensive metabolic panel - TSH - Vitamin B12 - Ferritin - Vitamin D Deficiency Screening (Vit D 25) - Magnesium - Folate Screening-pulmonary TB Moderate right ankle sprain, subsequent encounter Comments: Tevin wrap as tolerated. Other orders - gabapentin (Neurontin) 300 MG capsule; One tid Subjective: Patient ID: Anca Hsu is a 63 y.o. female. HPI patient with presents for preop clearance for overactive bladder Botox injections. Apparently has been getting up therapy for a while. Gets Versed for twilight anesthesia. Apparently on Plaquenil for inflammatory arthritis. No details evident. She apparently also sprained her right ankle and had x-rays that were negative. Quite ecchymotic after her daughter's dog leash wrapped around the ankle and foot. Do not have access to the x-ray report. Review of Systems pain in the right leg and foot and ankle was worse. Would like to know pain med options for her regional pain syndrome. Quite debilitated. 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 Of note BuSpar was offered for test anxiety but did help her IBS. No new cardiac or pulmonary concerns. No history of anesthesia reactions. Allergies Allergen Reactions Lidocaine Anaphylaxis Other reaction(s): Unknown Moxifloxacin Swelling and Anaphylaxis Lips and tongue swelling and eye lid Nuts [Cashew Nut Oil] Shortness of breath Other reaction(s): Tongue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 Wound Dressings Rash Current Outpatient Medications on File Prior to Visit Medication Sig Dispense Refill acetaminophen (Tylenol) 500 MG tablet Take by mouth. Alpha-Lipoic Acid 600 MG capsule Take 600 mg by mouth. Ascorbic Acid (vitamin C) 1000 MG tablet Take 1,000 mg by mouth in the morning and 1,000 mg in the evening. biotin 10 MG capsule Every 24 hours. Calcium 600-5 MG-MCG tablet Take by mouth. hydrocortisone (Anusol-HC) 25 MG suppository Date: 07/23/2020 09:49:00 EDT Magnesium 400 MG capsule Take 400 mg by mouth daily. mometasone (Elocon) 0.1 % ointment Apply topically daily. 60 g 1 Multiple Vitamin (Multi Vitamin) tablet Every 24 hours. UNABLE TO FIND Take 6,000 mg by mouth in the morning and 6,000 mg in the evening. Collagen . [DISCONTINUED] cloNIDine (Catapres) 0.1 MG tablet One everyday 30 tablet 5 [DISCONTINUED] gabapentin (Neurontin) 300 MG capsule Take one BID 60 capsule 2 [DISCONTINUED] ondansetron (Zofran) 8 MG tablet Take 1 tablet by mouth every 8 hours as needed. [DISCONTINUED] SUMAtriptan (Imitrex) 100 MG tablet TAKE 1 TABLET BY MOUTH NOW THEN REPEAT IN 2 HOURS. NO MORE THAN 4 TABS PER WEEK No current facility-administered medications on file prior to visit. Patient Active Problem List Diagnosis Fatty liver Osteoarthritis of right hip Lumbar degenerative disc disease Migraine headache Hearing aid worn Complex regional pain syndrome type 1 of right lower extremity Varicose veins of right lower extremity Lumbar foraminal stenosis History of depression Family history of diabetes mellitus (DM) Ex-smoker Fibromyalgia Osteopenia History of bariatric surgery Social History Tobacco Use Smoking status: Former Types: Cigarettes Quit date: 09/13/1991 Years since quittin.0 Smokeless tobacco: Never Substance Use Topics Alcohol use: Yes Past Surgical History: Procedure Laterality Date BLADDER REPAIR 06/18/2020 [facility] CATARACT EXTRACTION 06/2023 CHOLECYSTECTOMY 03/2021 Dr. Hercules COLONOSCOPY 12/2017 [place] - small polyp - rech due 2022 CYSTOCELE REPAIR 06/18/2020 EXPLORATORY LAPAROTOMY 1996 endometriosis GASTRIC BYPASS 11/2018 in [place] OTHER SURGICAL HISTORY tubal reversal PARTIAL HYSTERECTOMY 06/2020 still has ovaries/ [place]- Dr. Quesada Aposalist PELVIC LAPAROSCOPY 03/[address] Barbosa RECTOCELE REPAIR 06/18/2020 [facility] SALPINGECTOMY 06/18/2020 TONSILLECTOMY AND ADENOIDECTOMY (HISTORICAL) TOTAL HIP ARTHROPLASTY Right 09/2020 Dr. Duron TUBAL LIGATION 1987 UPPER GASTROINTESTINAL ENDOSCOPY 11/[address] Mtz UPPER GASTROINTESTINAL ENDOSCOPY 12/2017 [place]- mild gastritis UPPER [facility]TEST[facility] History Problem Relation Name Age of Onset Cervical cancer Mother eFlisa Bolanos 29 Rheum arthritis Mother Felisa Bolanos Diabetes Mother Felisa Bolanos diet cont, alive age 82 Kidney disease Father Florian Bolanos Dementia Father Florian Bolanos alive age 85 Atrial fibrillation Father Florian Morrisoncom Cancer Father Florian Bolanos melanoma Diabetes Sister Aline oral rx and insulin Multiple sclerosis Sister Aline Cervical cancer Sister Aline COPD Sister Aline smoker Heart attack Sister Aline alive age 63 Parkinsonism Sister Kae alive age 56 Alcohol abuse Sister Kae Cervical cancer Sister Kae Pes cavus Other Other Cousin Spinal musc atrophy, age 8 months Objective: BP 94/60 Pulse 86 Temp 36.6 C (97.9 F) (Temporal) Ht 5' 3 (1.6 m) SpO2 98% BMI 20.90 kg/m Physical Exam Exam is unchanged. No acute ENT findings. EACs are clear. Normal eardrums. Clear PND. No neck masses JVD adenopathy or carotid bruits. Heart is rate without gallops or murmurs. No ectopy. Lungs are clear. Abdomen soft scaphoid tender in lower quadrants. No acute findings. No hepatosplenomegaly or obvious masses. Lower extremities are unchanged but exam incomplete due to her sensitivity. Reviewed recent lab. Cannot find recent CT of the head done in 2022.. Apparently was negative. documented in this encounter [facility] 08-02-2023 Telephone encounter Note Referral pended for doctor's signature [facility] 08-02-2023 Miscellaneous Notes Referral pended for doctor's signature Images from the original note were not included. Kory Tom Javon, DO You 30 minutes ago (10:29 AM) EP Please post referral to Dr. Nino, the disc recordist the patient prefers documented in this encounter [facility] 08-02-2023 Telephone encounter Note Images from the original note were not included. Kory Tom Javon, DO You 30 minutes ago (10:29 AM) EP Please post referral to Dr. Nino, the disc recordist the patient prefers [facility] 07-30-2023 History of Present illness Narrative Images from the original note were not included. [facility] [address] [place] [address] [facility] [id number] Visit type: Established Patient Reason for Visit: Follow-up (3 month med check, wants labs) Assessment / Plan: Anca was seen today for follow-up. Diagnoses and all orders for this visit: Complex regional pain syndrome type 1 of right lower extremity (Primary) Comments: Unchanged, continue gabapentin and clonidine History of bariatric surgery Comments: Relatively stable, check lab Orders: - CBC auto differential; Future - Comprehensive metabolic panel; Future - Iron and TIBC; Future - Vitamin B12; Future - Magnesium; Future - Folate RBC; Future - CBC auto differential - Comprehensive metabolic panel - Iron and TIBC - Vitamin B12 - Magnesium - Folate RBC Anxiety and depression Comments: Recurrent, she defers citalopram as it was offered. Sprain of medial collateral ligament of right knee, subsequent encounter Comments: Improving, encouraged sleeve and OTC diclofenac gel Other orders - gabapentin (Neurontin) 300 MG capsule; Take one BID Subjective: Patient ID: Anca Hsu is a 62 y.o. female. HPI patient with history of complex regional pain syndrome affecting the right lower leg and a history of migraines presents for follow-up for gabapentin refill. Recently had consultation with [facility] neurologist for migraines but no change in medicines noted. She was disappointed in that consultation. Apparently fell at work as she slipped on some water and had a valgus stress of the right knee. She also bruised her right hip. X-rays of the right hip and right knee at [place] [facility] apparently were unremarkable. Mild ecchymosis apparently is improving Review of Systems no change in quality of right leg pain. She feels gabapentin is effective but she would like some lab work for follow-up on her gastric bypass years ago. She did place an email few weeks ago for concerns about a mental breakdown. Presently having multiple concerns about her own health and her 's health with metastatic cancer. 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 But today she defers any medicinal intervention. Allergies Allergen Reactions Lidocaine Anaphylaxis Other reaction(s): Unknown Hale Hives, Itching and Shortness of breath Other reaction(s): Dermatitis, shortness of breath Bupivacaine Other reaction(s): anaphylaxis Bupivacaine Hcl Other reaction(s): anaphylaxis Chlorhexidine Other reaction(s): petichiae rash Latex Other reaction(s): hives Meperidine Other reaction(s): Other (See Comments) Mental sx Meperidine Hcl Other reaction(s): ? Moxifloxacin Swelling Lips and tongue swelling and eye lid Procaine Other reaction(s): anaphylaxis Sucralfate Other reaction(s): Other (See Comments) Skin came off in mouth Sulfa Antibiotics Sulfamethoxazole Ultrasound Gel Hives and Itching Wound Dressings Rash Current Outpatient Medications on File Prior to Visit Medication Sig Dispense Refill acetaminophen (Tylenol) 500 MG tablet Take by mouth. Alpha-Lipoic Acid 600 MG capsule Take 600 mg by mouth. Ascorbic Acid (vitamin C) 1000 MG tablet Take 1,000 mg by mouth in the morning and 1,000 mg in the evening. biotin 10 MG capsule Every 24 hours. Calcium 600-5 MG-MCG tablet Take by mouth. cloNIDine (Catapres) 0.1 MG tablet One everyday 30 tablet 5 hydrocortisone (Anusol-HC) 25 MG suppository Date: 07/23/2020 09:49:00 EDT Magnesium 400 MG capsule Take 400 mg by mouth daily. mometasone (Elocon) 0.1 % ointment Apply topically daily. 60 g 1 Multiple Vitamin (Multi Vitamin) tablet Every 24 hours. ondansetron (Zofran) 8 MG tablet Take 1 tablet by mouth every 8 hours as needed. SUMAtriptan (Imitrex) 100 MG tablet TAKE 1 TABLET BY MOUTH NOW THEN REPEAT IN 2 HOURS. NO MORE THAN 4 TABS PER WEEK UNABLE TO FIND Take 6,000 mg by mouth in the morning and 6,000 mg in the evening. Collagen . [DISCONTINUED] gabapentin (Neurontin) 300 MG capsule Take one BID 60 capsule 2 [DISCONTINUED] moxifloxacin (Vigamox) 0.5 % ophthalmic solution USE 1 DROP IN THE RIGHT EYE FOUR TIMES DAILY. PLEASE START 2 DAYS PRIOR TO YOUR SURGICAL DATE No current facility-administered medications on file prior to visit. Patient Active Problem List Diagnosis Fatty liver Osteoarthritis of right hip Lumbar degenerative disc disease Migraine headache Hearing aid worn Complex regional pain syndrome type 1 of right lower extremity Varicose veins of right lower extremity Lumbar foraminal stenosis History of depression Family history of diabetes mellitus (DM) Ex-smoker Fibromyalgia Osteopenia History of bariatric surgery Social History Tobacco Use Smoking status: Former Types: Cigarettes Quit date: 09/13/1991 Years since quittin.8 Smokeless tobacco: Never Substance Use Topics Alcohol use: Yes Past Surgical History: Procedure Laterality Date BLADDER REPAIR 06/18/2020 [facility] CATARACT EXTRACTION 06/2023 CHOLECYSTECTOMY 03/2021 Dr. Hercules COLONOSCOPY 12/2017 [place] - small polyp - rech due 2022 CYSTOCELE REPAIR 06/18/2020 EXPLORATORY LAPAROTOMY 1996 endometriosis GASTRIC BYPASS 11/2018 in [place] OTHER SURGICAL HISTORY tubal reversal PARTIAL HYSTERECTOMY 06/2020 still has ovaries/ [place]- Dr. Quesada Aposalist PELVIC LAPAROSCOPY 03/[address] Barbosa RECTOCELE REPAIR 06/18/2020 [facility] SALPINGECTOMY 06/18/2020 TONSILLECTOMY AND ADENOIDECTOMY (HISTORICAL) TOTAL HIP ARTHROPLASTY Right 09/2020 Dr. Duron TUBAL LIGATION 1987 UPPER GASTROINTESTINAL ENDOSCOPY 11/[address] Mtz UPPER GASTROINTESTINAL ENDOSCOPY 12/2017 [place]- mild gastritis UPPER [facility] Family History Problem Relation Name Age of Onset Cervical cancer Mother Felisa Bolanos 29 Rheum arthritis Mother Felisa Bolanos Diabetes Mother Felisa Bolanos diet cont, alive age 82 Kidney disease Father Florian Bolanos Dementia Father Florian Bolanos alive age 85 Atrial fibrillation Father Florian Bolanos Cancer Father Florian Bolanos melanoma Diabetes Sister Aline oral rx and insulin Multiple sclerosis Sister Aline Cervical cancer Sister Aline COPD Sister Aline smoker Heart attack Sister Aline alive age 63 Parkinsonism Sister Kae alive age 56 Alcohol abuse Sister Kae Cervical cancer Sister Kae Pes cavus Other Other Cousin Spinal musc atrophy, age 8 months Objective: BP 91/62 Pulse 69 Temp 37.1 C (98.7 F) (Temporal) Ht 5' 3 (1.6 m) SpO2 99% BMI 20.90 kg/m Physical Exam blood pressure is noted to be slightly low. She defers stopping clonidine. No neck masses adenopathy thyroid lesions or carotid bruits. Heart is regular without ectopy or murmurs. Lungs are clear. Abdomen sensitive to touch diffusely but without hepatosplenomegaly masses ascites or adenopathy. Attempted treatment exam of the right knee but she cannot pull her pant legs up. She has some MCL laxity bilaterally and a sense of right knee effusion and pain along the medial tibia. Chronic edema of the right leg is unchanged. Did review recent neurology notes and ophthalmology notes. No x-rays of her hip and knee in the record documented in this encounter [facility] 06-02-2023 History of Present illness Narrative Images from the original note were not included. [facility] [address] [facility] [address] Visit type: Established Patient Reason for Visit: Annual Exam Assessment / Plan: Anca was seen today for annual exam. Diagnoses and all orders for this visit: Annual physical exam (Primary) Comments: Stable for clinics. She defers mammogram, breast exam, colonoscopy referral. Osteopenia, unspecified location Comments: Calcium vitamin D, careful with kidney stones. She defers Prolia Other migraine without status migrainosus, not intractable Complex regional pain syndrome type 1 of right lower extremity Comments: Stable, gabapentin Primary osteoarthritis of right hip Comments: Stable, postop seroma, follow-up with orthopedics as recommended History of renal calculi Stable exam, stable for clinic rotations. Recheck 3 months for gabapentin. Recommend to call for mammogram and colonoscopy referral. She defers any other intervention for her osteoporosis Subjective: Patient ID: Anca Hsu is a 62 y.o. female. 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 Review of Systems no changes in her prior history. Had to put off for cataract surgery for various reasons. No changes clinically. Non-smoker. No alcohol abuse. Has a lot of stress with her 's dying of metastatic cancer. No change in family history. No change in ENT. No sore throat cough. Intermittent left-sided neck ache goes away. Not associate with adenopathy or signs of infection. No exertional chest pain cough or wheezing. No heartburn or dysphagia. 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 Not interested in colonoscopy referral. No melena or blood. No vaginal bleeding. No change in right hip and leg pain. not heard back from orthopedic surgery. Allergies Allergen Reactions Lidocaine Anaphylaxis Other reaction(s): Unknown Hale Hives, Itching and Shortness of breath Other reaction(s): Dermatitis, shortness of breath Bupivacaine Other reaction(s): anaphylaxis Bupivacaine Hcl Other reaction(s): anaphylaxis Chlorhexidine Other reaction(s): petichiae rash Latex Other reaction(s): hives Meperidine Other reaction(s): Other (See Comments) Mental sx Meperidine Hcl Other reaction(s): ? Procaine Other reaction(s): anaphylaxis Sucralfate Other reaction(s): Other (See Comments) Skin came off in mouth Sulfa Antibiotics Sulfamethoxazole Ultrasound Gel Hives and Itching Wound Dressings Rash Current Outpatient Medications on File Prior to Visit Medication Sig Dispense Refill acetaminophen (Tylenol) 500 MG tablet Take by mouth. Alpha-Lipoic Acid 600 MG capsule Take 600 mg by mouth. Ascorbic Acid (vitamin C) 1000 MG tablet Take 1,000 mg by mouth in the morning and 1,000 mg in the evening. biotin 10 MG capsule Every 24 hours. Calcium 600-5 MG-MCG tablet Take by mouth. cloNIDine (Catapres) 0.1 MG tablet One everyday 30 tablet 5 gabapentin (Neurontin) 300 MG capsule Take one BID 60 capsule 2 hydrocortisone (Anusol-HC) 25 MG suppository Date: 07/23/2020 09:49:00 EDT Magnesium 400 MG capsule Take 400 mg by mouth daily. mometasone (Elocon) 0.1 % ointment Apply topically daily. 60 g 1 Multiple Vitamin (Multi Vitamin) tablet Every 24 hours. ondansetron (Zofran) 8 MG tablet Take 1 tablet by mouth every 8 hours as needed. SUMAtriptan (Imitrex) 100 MG tablet TAKE 1 TABLET BY MOUTH NOW THEN REPEAT IN 2 HOURS. NO MORE THAN 4 TABS PER WEEK UNABLE TO FIND Take 6,000 mg by mouth in the morning and 6,000 mg in the evening. Collagen . moxifloxacin (Vigamox) 0.5 % ophthalmic solution USE 1 DROP IN THE RIGHT EYE FOUR TIMES DAILY. PLEASE START 2 DAYS PRIOR TO YOUR SURGICAL DATE [DISCONTINUED] Emollient (Collagen) cream Every 24 hours. No current facility-administered medications on file prior to visit. Patient Active Problem List Diagnosis Fatty liver Osteoarthritis of right hip Lumbar degenerative disc disease Migraine headache Hearing aid worn Complex regional pain syndrome type 1 of right lower extremity Varicose veins of right lower extremity Lumbar foraminal stenosis History of depression Family history of diabetes mellitus (DM) Ex-smoker Fibromyalgia Osteopenia Social History Tobacco Use Smoking status: Former Types: Cigarettes Quit date: 09/13/1991 Years since quittin.7 Smokeless tobacco: Never Substance Use Topics Alcohol use: Yes Past Surgical History: Procedure Laterality Date BLADDER REPAIR 06/18/2020 [facility]rology CHOLECYSTECTOMY 03/2021 Dr. Hercules COLONOSCOPY 12/2017 [place] - small polyp - rech due 2022 CYSTOCELE REPAIR 06/18/2020 EXPLORATORY LAPAROTOMY 1996 endometriosis GASTRIC BYPASS 11/2018 in [place] OTHER SURGICAL HISTORY tubal reversal PARTIAL HYSTERECTOMY 06/2020 still has ovaries/ [place]- Dr. Quesada Aposalist PELVIC LAPAROSCOPY 03/[address] Barbosa RECTOCELE REPAIR 06/18/2020 [facility]rology SALPINGECTOMY 06/18/2020 TONSILLECTOMY AND ADENOIDECTOMY (HISTORICAL) TOTAL HIP ARTHROPLASTY Right 09/2020 Dr. Duron TUBAL LIGATION 1987 UPPER GASTROINTESTINAL ENDOSCOPY 11/[address] Mtz UPPER GASTROINTESTINAL ENDOSCOPY 12/2017 Isamar- mild gastritis UPPER GASTROINTESTINAL ENDOSCOPY 01/2022 Dr. Gaxiola [facility] Family History Problem Relation Name Age of Onset Cervical cancer Mother Felisa Bolanos 29 Rheum arthritis Mother Felisa Bolanos Diabetes Mother Felisa Bolanos diet cont, alive age 82 Kidney disease Father Florian Bolanos Dementia Father Florian Bolanos alive age 85 Atrial fibrillation Father Florian Bolanos Cancer Father Florian Bolanos melanoma Diabetes Sister Aline oral rx and insulin Multiple sclerosis Sister Aline Cervical cancer Sister Aline COPD Sister Aline smoker Heart attack Sister Aline alive age 63 Parkinsonism Sister Kae alive age 56 Alcohol abuse Sister Kae Cervical cancer Sister Kae Pes cavus Other Other Cousin Spinal musc atrophy, age 8 months Objective: BP 116/69 Pulse 79 Temp 36.5 C (97.7 F) (Temporal) Ht 5' 3 (1.6 m) SpO2 99% BMI 20.90 kg/m Physical Exam No change in exam. No thyroid or neck masses. No appreciable adenopathy or carotid bruits. Normal eardrums. Oropharynx clear. Heart is rate without gallops or murmurs. Lungs are clear. Abdomen soft tender in lower quadrants but without masses hepatosplenomegaly ascites bruits or adenopathy. Right hip is flexed and internally rotated. Sensitive to touch. Extremities have trace edema bilaterally. No no change in exam. Detailed exam of the foot and leg was not done. Reviewed recent records including back and hip x-rays orthopedic consultation. Recent renal function normal. Mildly chronically anemic all time but no changes in recent lab. She appears well for her clinical rotations documented in this encounter [facility] 05-19-2023 History of Present illness Narrative Images from the original note were not included. [facility] [address] [place] [id number] Visit type: Established Patient Reason for Visit: Surgical Consult Assessment / Plan: Anca was seen today for surgical consult. Diagnoses and all orders for this visit: Cataract of right eye, unspecified cataract type (Primary) Fibromyalgia History of migraine Complex regional pain syndrome type 1 of right lower extremity Preoperative clearance - ECG 12 lead; Future - Basic metabolic panel; Future - Basic metabolic panel Subjective: Patient ID: Anca Hsu is a 62 y.o. female. HPI preop Right Cataract per Reinaldo Granados in June. Symptomatic of decreased visual acuity especially at night. Feeling about the same orthopedic nicole and migraine nicole. Gabapentin and clonidine fairly effective. Review of Systems denies recent earache sore throat fever or purulent rhinorrhea. No cough chest pain or palpitation. Has a sense of mild swelling of the lateral aspect of the left side of the neck underneath the left jaw. No real mass feeling. No dysphagia or emesis. No abdominal pain. No warm or diarrhea. No dysuria. No change in quality of right hip and leg pain. Reviewed past medical and surgical history. Reviewed family history. Non-smoker for many years. No alcohol abuse Allergies Allergen Reactions Lidocaine Anaphylaxis Other reaction(s): Unknown Hale Hives, Itching and Shortness of breath Other reaction(s): Dermatitis, shortness of breath Bupivacaine Other reaction(s): anaphylaxis Bupivacaine Hcl Other reaction(s): anaphylaxis Chlorhexidine Other reaction(s): petichiae rash Meperidine Other reaction(s): Other (See Comments) Mental sx Meperidine Hcl Other reaction(s): ? Procaine Other reaction(s): anaphylaxis Sucralfate Other reaction(s): Other (See Comments) Skin came off in mouth Sulfa Antibiotics Sulfamethoxazole Ultrasound Gel Hives and Itching Current Outpatient Medications on File Prior to Visit Medication Sig Dispense Refill acetaminophen (Tylenol) 500 MG tablet Take by mouth. Alpha-Lipoic Acid 600 MG capsule Take 600 mg by mouth. Ascorbic Acid (vitamin C) 1000 MG tablet Take 1,000 mg by mouth in the morning and 1,000 mg in the evening. biotin 10 MG capsule Every 24 hours. Calcium 600-5 MG-MCG tablet Take by mouth. cloNIDine (Catapres) 0.1 MG tablet One everyday 30 tablet 5 Emollient (Collagen) cream Every 24 hours. gabapentin (Neurontin) 300 MG capsule Take one BID 60 capsule 2 hydrocortisone (Anusol-HC) 25 MG suppository Date: 07/23/2020 09:49:00 EDT Magnesium 400 MG capsule Take 400 mg by mouth daily. mometasone (Elocon) 0.1 % ointment Apply topically daily. 60 g 1 Multiple Vitamin (Multi Vitamin) tablet Every 24 hours. ondansetron (Zofran) 8 MG tablet Take 1 tablet by mouth every 8 hours as needed. SUMAtriptan (Imitrex) 100 MG tablet TAKE 1 TABLET BY MOUTH NOW THEN REPEAT IN 2 HOURS. NO MORE THAN 4 TABS PER WEEK No current facility-administered medications on file prior to visit. Patient Active Problem List Diagnosis Fatty liver Osteoarthritis of right hip Lumbar degenerative disc disease History of migraine Migraine headache Hearing aid worn Complex regional pain syndrome type 1 of right lower extremity Varicose veins of right lower extremity Lumbar foraminal stenosis History of depression Family history of diabetes mellitus (DM) Ex-smoker Fibromyalgia Social History Tobacco Use Smoking status: Former Types: Cigarettes Quit date: 09/13/1991 Years since quittin.7 Smokeless tobacco: Never Substance Use Topics Alcohol use: Yes Past Surgical History: Procedure Laterality Date BLADDER REPAIR 06/18/2020 [facility]rology CHOLECYSTECTOMY 03/2021 Dr. Hercules COLONOSCOPY 12/2017 [place] - small polyp - rech due 2022 CYSTOCELE REPAIR 06/18/2020 EXPLORATORY LAPAROTOMY 1996 endometriosis GASTRIC BYPASS 11/2018 in [place] OTHER SURGICAL HISTORY tubal reversal PARTIAL HYSTERECTOMY 06/2020 still has ovaries/ [place]- Dr. Quesada Aposalist PELVIC LAPAROSCOPY 03/[address] Barbosa RECTOCELE REPAIR 06/18/2020 [facility]rology SALPINGECTOMY 06/18/2020 TONSILLECTOMY AND ADENOIDECTOMY (HISTORICAL) TOTAL HIP ARTHROPLASTY Right 09/2020 Dr. Duron TUBAL LIGATION 1987 UPPER GASTROINTESTINAL ENDOSCOPY 11/[address] Mtz UPPER GASTROINTESTINAL ENDOSCOPY 12/2017 [place]- mild gastritis UPPER GASTR[facility]INTESTINAL END[facility] History Problem Relation Name Age of Onset Cervical cancer Mother Felisa Bolanos Rheum arthritis Mother Felisa Bolanos Diabetes Mother Felisa Bolanos diet cont, alive age 81 Kidney disease Father Florian Bolanos Dementia Father Florian Bolanos alive age 83 Atrial fibrillation Father Florian [place] Cancer Father Florian Bolanos melanoma Diabetes Sister Aline Multiple sclerosis Sister Aline Cervical cancer Sister Aline COPD Sister Aline Parkinsonism Sister Kae Alcohol abuse Sister Kae Cervical cancer Sister Kae Objective: BP 105/69 (BP Location: Left arm, Patient Position: Sitting, BP Cuff Size: Adult long) Pulse 72 Temp 37.3 C (99.1 F) (Temporal) Ht 5' 3 (1.6 m) SpO2 99% BMI 20.90 kg/m Physical Exam Right cataract evident. Extremities. No oral lesions. Some tenderness underneath the angle of the left jaw but no mass lesions. No asymmetric salivary glands adenopathy. No thyroid lesions. Normal eardrums. No skin changes. Heart is regular without gallops or murmurs. Lungs are clear. Abdomen soft scaphoid without pain splenomegaly masses or adenopathy. No extremity exam grossly unchanged, EKG sinus rhythm without acute changes. documented in this encounter [facility] [place] 04-27-2023 History of Present illness Narrative Images from the original note were not included. [facility] [id number] Visit type: Established Patient Reason for Visit: Follow-up (3 month med check) Assessment / Plan: Anca was seen today for follow-up. Diagnoses and all orders for this visit: Complex regional pain syndrome type 1 of right lower extremity (Primary) Comments: Uncontrolled. Patient defers also reaching out to contact her orthopedist for his plans for further intervention. Continue gabapentin. Other orders - cloNIDine (Catapres) 0.1 MG tablet; One everyday - gabapentin (Neurontin) 300 MG capsule; Take one BID Subjective: Patient ID: Anca Hsu is a 62 y.o. female. 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 Apparently saw Dr. Duron orthopedist who did an MRI which showed a possible seroma and/or ganglion of the iliopsoas tendon. Apparently he was to contact her after speaking to interventional radiologist for potential treatment options. She is disappointed she has not heard from that group since April 05. Review of Systems nothing has changed. Her pain is quite intense along the anterior aspect of the thigh especially with lifting her leg. Sense of weakness and tingling and pain to the lower leg and foot. 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 Is under training to get her advanced degree in nursing as well. 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 She does a lot of stuff around the house. Allergies Allergen Reactions Lidocaine Anaphylaxis Other reaction(s): Unknown Hale Hives, Itching and Shortness of breath Other reaction(s): Dermatitis, shortness of breath Bupivacaine Other reaction(s): anaphylaxis Bupivacaine Hcl Other reaction(s): anaphylaxis Chlorhexidine Other reaction(s): petichiae rash Meperidine Other reaction(s): Other (See Comments) Mental sx Meperidine Hcl Other reaction(s): ? Procaine Other reaction(s): anaphylaxis Sucralfate Other reaction(s): Other (See Comments) Skin came off in mouth Sulfa Antibiotics Sulfamethoxazole Ultrasound Gel Hives and Itching Current Outpatient Medications on File Prior to Visit Medication Sig Dispense Refill acetaminophen (Tylenol) 500 MG tablet Take by mouth. Alpha-Lipoic Acid 600 MG capsule Take 600 mg by mouth. Ascorbic Acid (vitamin C) 1000 MG tablet Take 1,000 mg by mouth in the morning and 1,000 mg in the evening. biotin 10 MG capsule Every 24 hours. Calcium 600-5 MG-MCG tablet Take by mouth. Emollient (Collagen) cream Every 24 hours. hydrocortisone (Anusol-HC) 25 MG suppository Date: 07/23/2020 09:49:00 EDT Magnesium 400 MG capsule Take 400 mg by mouth daily. mometasone (Elocon) 0.1 % ointment Apply topically daily. 60 g 1 Multiple Vitamin (Multi Vitamin) tablet Every 24 hours. ondansetron (Zofran) 8 MG tablet Take 1 tablet by mouth every 8 hours as needed. SUMAtriptan (Imitrex) 100 MG tablet TAKE 1 TABLET BY MOUTH NOW THEN REPEAT IN 2 HOURS. NO MORE THAN 4 TABS PER WEEK [DISCONTINUED] cloNIDine (Catapres) 0.1 MG tablet One everyday 30 tablet 5 [DISCONTINUED] gabapentin (Neurontin) 300 MG capsule Take one BID 60 capsule 1 No current facility-administered medications on file prior to visit. Patient Active Problem List Diagnosis Fatty liver Osteoarthritis of right hip Lumbar degenerative disc disease History of migraine Migraine headache Hearing aid worn Complex regional pain syndrome type 1 of right lower extremity Varicose veins of right lower extremity Lumbar foraminal stenosis History of depression Family history of diabetes mellitus (DM) Ex-smoker Fibromyalgia Social History Tobacco Use Smoking status: Former Types: Cigarettes Quit date: 09/13/1991 Years since quittin.6 Smokeless tobacco: Never Substance Use Topics Alcohol use: Yes Past Surgical History: Procedure Laterality Date BLADDER REPAIR 06/18/2020 [facility] CHOLECYSTECTOMY 03/2021 Dr. Hercules COLONOSCOPY 12/2017 [place] - small polyp - rech due 2022 CYSTOCELE REPAIR 06/18/2020 EXPLORATORY LAPAROTOMY 1996 endometriosis GASTRIC BYPASS 11/2018 in [place] OTHER SURGICAL HISTORY tubal reversal PARTIAL HYSTERECTOMY 06/2020 still has ovaries/ [place]- Dr. Quesada Aposalist PELVIC LAPAROSCOPY 03/[address] Barbosa RECTOCELE REPAIR 06/18/2020 [facility] SALPINGECTOMY 06/18/2020 TONSILLECTOMY AND ADENOIDECTOMY (HISTORICAL) TOTAL HIP ARTHROPLASTY Right 09/2020 Dr. Duron TUBAL LIGATION 1987 UPPER GASTROINTESTINAL ENDOSCOPY 11/[address] Mtz UPPER GASTROINTESTINAL ENDOSCOPY 12/2017 [place]- mild gastritis UPPER GASTR[facility]INTESTINAL END[facility]COPY [facility] Family History Problem Relation Name Age of Onset Cervical cancer Mother Felisa Bolanos Rheum arthritis Mother Felisa Bolanos Diabetes Mother Felisa Bolanos diet cont, alive age 81 Kidney disease Father Florian [place] Dementia Father Florian Luis Miguel alive age 83 Atrial fibrillation Father Florian Luis Miguel Cancer Father Florian Morrisoncom melanoma Diabetes Sister Multiple sclerosis Sister Cervical cancer Sister COPD Sister Parkinsonism Sister Alcohol abuse Sister Cervical cancer Sister Objective: BP 93/63 Pulse 68 Temp 37 C (98.6 F) (Temporal) Ht 5' 3 (1.6 m) SpO2 100% BMI 20.90 kg/m Physical Exam her exam appears to be unchanged. Flexion of the right thigh is very painful. Any attempted rotation is very painful. Her right lower leg and foot and toe weakness is still evident. Foot is slightly cooler, but not cyanotic. Time spent reviewing orthopedic consultation notes. Discussed also stress with her 's health. Encouragement given. documented in this encounter [facility] 03-08-2023 Telephone encounter Note Updated orders pended for dx and doctor's signature [facility] 03-08-2023 Miscellaneous Notes Updated orders pended for dx and doctor's signature documented in this encounter [facility] 03-08-2023 Note Addended by: KIERAN TORREZ on: 03/08/2023 08:21 AM Modules accepted: Orders [facility] 03-08-2023 Note Addended by: KIERAN TORREZ on: 03/08/2023 08:21 AM Modules accepted: Orders [facility] 03-08-2023 Miscellaneous Notes Addended by: KIERAN TORREZ on: 03/08/2023 08:21 AM Modules accepted: Orders Addended by: KORY ALEJANDRO on: 02/04/2023 05:31 PM Modules accepted: Orders Addended by: KIERAN TORREZ on: 02/04/2023 05:18 PM Modules accepted: Orders Updated orders pended for signature. Please address the sedation section. Orders pended for dx and doctor's signature documented in this encounter [facility] 02-04-2023 Note Addended by: KORY LEMOS on: 02/04/2023 05:31 PM Modules accepted: Orders [facility] 02-04-2023 Note Addended by: KORY LEMOS on: 02/04/2023 05:31 PM Modules accepted: Orders [facility] 02-04-2023 Note Addended by: KORY LEMOS on: 02/04/2023 05:31 PM Modules accepted: Orders [facility] 02-04-2023 Note Addended by: KORY LEMOS on: 02/04/2023 05:31 PM Modules accepted: Orders [facility] 02-04-2023 Note Addended by: KORY LEMOS on: 02/04/2023 05:31 PM Modules accepted: Orders [facility] 02-04-2023 Miscellaneous Notes Addended by: KORY ALEJANDRO on: 02/04/2023 05:31 PM Modules accepted: Orders Addended by: KIERAN TORREZ on: 02/04/2023 05:18 PM Modules accepted: Orders Updated orders pended for signature. Please address the sedation section. Orders pended for dx and doctor's signature documented in this encounter [facility] 02-04-2023 Note Addended by: KIERAN TORREZ on: 02/04/2023 05:18 PM Modules accepted: Orders [facility] 02-04-2023 Note Addended by: KIERAN TORREZ on: 02/04/2023 05:18 PM Modules accepted: Orders [facility] 02-04-2023 Note Addended by: KIERAN TORREZ on: 02/04/2023 05:18 PM Modules accepted: Orders [facility] 02-04-2023 Note Addended by: KIERAN TORREZ on: 02/04/2023 05:18 PM Modules accepted: Orders [facility] 02-04-2023 Note Addended by: KIERAN TORREZ on: 02/04/2023 05:18 PM Modules accepted: Orders [facility] 02-04-2023 Telephone encounter Note Updated orders pended for signature. Please address the sedation section. [facility] 02-04-2023 Telephone encounter Note Orders pended for dx and doctor's signature T [facility] 01-12-2023 Note Post Operative Note: PreOp Diagnosis: OAB Post-Procedure Diagnosis: same Procedure: 1. intradetrusor botox injection 100 units 2. cystoscopy Surgeon: Carlton Barbosa Resident/Fellow/Other Floatman: Nini Camacho Anesthesia: MAC Estimated Blood Loss (mL): none Blood Replacement: none Specimen: no Complications: none Findings: normal bladder anatomy Patient Returned To/Condition: PACU/stable Operative Report Dictated: Dictation: not applicable - note contains Operative Report Operative Report: PROCEDURE IN DETAIL: The patient was interviewed in the preop holding area by the surgical team, where the risks, benefits, and indication of the procedure were reviewed. She was then transferred to the operating suite where the patient was properly identified and the procedure was confirmed. When adequate anesthesia was obtained, the patient was prepped and draped in a dorsal lithotomy position. A time-out was performed. Preoperative antibiotics were given. A solution of 100 U of Botox in 10 mL of normal saline was created. The cystoscope was then inserted into the bladder and the urine was emptied. The bladder was then filled with approximately 250 mL of normal saline, and the entire 100 U of the botox solution was injected into the bladder muscle in a grid-like pattern under direct visualization. Visible blood vessels were avoided. After hemostasis was confirmed, the bladder was emptied. The cystoscope was removed. The patient was then awakened from anesthesia, having tolerated procedure well, and was taken to the recovery room in stable condition. All sponge, needle, and instrument counts were correct at the end the case. Heather Nunez MD, Fellow Dr. Barbosa was present for all critical portions of the procedure. Attestation: Note Completion: I am a:Resident/Fellow Attending AttestationI was present for the entire procedure Electronic Signatures: Flip Barbosa () (Signed 12-Jan-2023 14:32) Authored: Note Completion Co-Signer: Post Operative Note, Note Completion Heather Nunez (Fellow)) (Signed 12-Jan-2023 11:56) Authored: Post Operative Note, Note Completion Last Updated: 12-Jan-2023 14:32 by Flip Barbosa) [facility] 01-12-2023 Note This report has been cancelled. [facility] 01-12-2023 Note History & Physical R eviewed: I have reviewed the History and Physical dated: 12-Jan-2023 History and Physical reviewed and relevant findings noted. Patient examined to review pertinent physical findings.: No significant changes Home Medications Reviewed: no changes noted Allergies Reviewed: no changes noted ERAS (Enhanced Recovery After Surgery): ERAS Patient: no Consent: COVID-19 Consent: COVID-19 Risk ConsentSurgeon has reviewed lagos risks related to the risk of danitza COVID-19 and if they contract COVID-19 what the risks are. Attestation: Note Completion: I am a: Resident/Fellow Attending AttestationI saw and evaluated the patient. I personally obtained the lagos and critical portions of the history and physical exam or was physically present for lagos and critical portions performed by the resident/fellow. I reviewed the resident/fellows documentation and discussed the patient with the resident/fellow. I agree with the resident/fellows medical decision making as documented in the note. I personally evaluated the patient [id number] Electronic Signatures: Flip Barbosa) (Signed 12-Jan-2023 14:27) Authored: Note Completion Co-Signer: History & Physical Reviewed, ERAS, Consent, Note Completion Jacinta Camacho (Resident)) (Signed 11-Jan-2023 13:01) Authored: History & Physical Reviewed, ERAS, Consent, Note Completion Last Updated: 12-Jan-2023 14:27 by Flip Barbosa) [facility] 01-08-2023 Telephone encounter Note Placed call to patient. Was able to speak to patient. All concerns in message have been addressed. [facility] 01-08-2023 Miscellaneous Notes Placed call to patient. Was able to speak to patient. All concerns in message have been addressed. Call patient to tell her the prescription was completed today. Rx loaded documented in this encounter [facility] 01-08-2023 Telephone encounter Note Call patient to tell her the prescription was completed today. [facility] 01-08-2023 Telephone encounter Note Rx loaded [facility] 01-01-2023 History of Present illness Narrative Images from the original note were not included. [facility] [address] [address] Visit type: Established Patient Reason for Visit: Follow-up (3 month med check) Assessment / Plan: Anca was seen today for follow-up. Diagnoses and all orders for this visit: Pneumonia of right lower lobe due to infectious organism (Primary) Comments: New onset, check x-ray and Zpack Orders: - XR chest 2 views; Future Complex regional pain syndrome type 1 of right lower extremity Comments: Unstable, continue clonidine and increase gabapentin to 300 twice daily, OARRS report done Other orders - gabapentin (Neurontin) 300 MG capsule; Increase to one BID - cloNIDine (Catapres) 0.1 MG tablet; One everyday - azithromycin (Zithromax) 250 MG tablet; Take 2 tabs (500 mg) by mouth today, than 1 daily for 4 days. Subjective: Patient ID: Anca Hsu is a 62 y.o. female. HPI patient presents for refill for gabapentin and clonidine for complex regional pain syndrome which is affected her right hip leg and foot. Of note still waiting for reevaluation by Dr. Duron for chronic hip pain. MRI of the hip apparently has not been authorized by her insurance company. Still quite stable and affecting her gait. Review of Systems does have few day history of cough. Minimally productive of yellow phlegm. No chest pain pleurisy or sense of shortness of breath or fever. No recent nausea vomiting or diarrhea. No recent falls or sense of more weakness in her leg or foot. She does feel gabapentin only partially effective. Allergies Allergen Reactions Lidocaine Anaphylaxis Other reaction(s): Unknown Hale Hives, Itching and Shortness of breath Other reaction(s): Dermatitis, shortness of breath Bupivacaine Other reaction(s): anaphylaxis Bupivacaine Hcl Other reaction(s): anaphylaxis Chlorhexidine Other reaction(s): petichiae rash Meperidine Other reaction(s): Other (See Comments) Mental sx Meperidine Hcl Other reaction(s): ? Procaine Other reaction(s): anaphylaxis Sucralfate Other reaction(s): Other (See Comments) Skin came off in mouth Sulfa Antibiotics Sulfamethoxazole Ultrasound Gel Hives and Itching Current Outpatient Medications on File Prior to Visit Medication Sig Dispense Refill acetaminophen (Tylenol 8 Hour) 650 MG ER tablet Take 650 mg by mouth. acetaminophen (Tylenol) 500 MG tablet Take by mouth. Ascorbic Acid (vitamin C) 1000 MG tablet Take 1,000 mg by mouth in the morning and 1,000 mg in the evening. biotin 10 MG capsule Every 24 hours. gabapentin (Neurontin) 100 MG capsule One q AM 30 capsule 2 hydrocortisone (Anusol-HC) 25 MG suppository Date: 07/23/2020 09:49:00 EDT Magnesium 400 MG capsule Take 400 mg by mouth daily. mometasone (Elocon) 0.1 % ointment Apply topically daily. 60 g 1 Multiple Vitamin (Multi Vitamin) tablet Every 24 hours. ondansetron (Zofran) 8 MG tablet Take 1 tablet by mouth every 8 hours as needed. SUMAtriptan (Imitrex) 100 MG tablet TAKE 1 TABLET BY MOUTH NOW THEN REPEAT IN 2 HOURS. NO MORE THAN 4 TABS PER WEEK [DISCONTINUED] cloNIDine (Catapres) 0.1 MG tablet One q day 30 tablet 5 [DISCONTINUED] gabapentin (Neurontin) 300 MG capsule TAKE 1 CAPSULE BY MOUTH EVERYDAY AT BEDTIME 30 capsule 2 Alpha-Lipoic Acid 600 MG capsule Take 600 mg by mouth. Cyanocobalamin (Vitamin B-12) 1000 MCG/15ML liquid Take by mouth. [DISCONTINUED] Emollient (Collagen) cream Every 24 hours. [DISCONTINUED] Estrogens Conjugated (Premarin) vaginal cream Insert into the vagina. [DISCONTINUED] hydrocortisone (Anusol-HC) 25 MG suppository Insert into the rectum. [DISCONTINUED] solifenacin (VESIcare) 10 MG tablet Take 1 tablet by mouth Nightly. [DISCONTINUED] trospium (Sanctura) 20 MG tablet Every 24 hours. No current facility-administered medications on file prior to visit. Patient Active Problem List Diagnosis Fatty liver Osteoarthritis of right hip Lumbar degenerative disc disease History of migraine Migraine headache Hearing aid worn Complex regional pain syndrome type 1 of right lower extremity Varicose veins of right lower extremity Lumbar foraminal stenosis History of depression Family history of diabetes mellitus (DM) Ex-smoker Fibromyalgia Social History Tobacco Use Smoking status: Former Types: Cigarettes Quit date: 09/13/1991 Years since quittin.3 Smokeless tobacco: Never Substance Use Topics Alcohol use: Yes Past Surgical History: Procedure Laterality Date BLADDER REPAIR 06/18/2020 [facility] CHOLECYSTECTOMY 03/2021 Dr. Hercules COLONOSCOPY 12/2017 [place] - small polyp - rech due 2022 CYSTOCELE REPAIR 06/18/2020 EXPLORATORY LAPAROTOMY 1996 endometriosis GASTRIC BYPASS 11/2018 in [place] OTHER SURGICAL HISTORY tubal reversal PARTIAL HYSTERECTOMY 06/2020 still has ovaries/ [place]- Dr. Quesada Aposalist PELVIC LAPAROSCOPY 03/[address] Barbosa RECTOCELE REPAIR 06/18/2020 [facility] SALPINGECTOMY 06/18/2020 TONSILLECTOMY AND ADENOIDECTOMY (HISTORICAL) TOTAL HIP ARTHROPLASTY Right 09/2020 Dr. Duron TUBAL LIGATION 1987 UPPER GASTROINTESTINAL ENDOSCOPY 11/[address] Mtz UPPER GASTROINTESTINAL ENDOSCOPY 12/2017 [place]- mild gastritis [facility]PPER [facility] Problem Relation Name Age of Onset Cervical cancer Mother Felisa Bolanos Rheum arthritis Mother Felisa Bolanos Diabetes Mother Felisa Bolanos diet cont, alive age 81 Kidney disease Father Florian Morrisoncom Dementia Father Florian Morrisoncom alive age 83 Atrial fibrillation Father Florian Morrisoncom Cancer Father Florian Morrisoncom melanoma Diabetes Sister Multiple sclerosis Sister Cervical cancer Sister COPD Sister Parkinsonism Sister Alcohol abuse Sister Cervical cancer Sister Objective: BP 103/65 Pulse 86 Temp 36.6 C (97.9 F) (Temporal) Ht 5' 3 (1.6 m) SpO2 99% BMI 20.90 kg/m Physical Exam Alert and oriented. Not air hungry. Not acutely ill in appearance. Nonicteric. Clear PND. Normal eardrums. No neck masses or adenopathy. Heart is regular gallops or murmurs or ectopy. Lungs are diminished in the right base with upper rhonchi. Some crackles and mild expiratory wheezes in right base. No retractions. Abdomen soft and nontender good bowel sounds no hepatosplenomegaly or masses. She walks with a painful gait. Her right hip incision is clean and dry without induration or edema. documented in this encounter [facility] 01-01-2023 Instructions Kory Alejandro DO - 01/01/2023 8:00 AM EST Call with worsening symptoms of respiratory infection. Await chest x-ray documented in this encounter [facility] 11-27-2022 History of Present illness Narrative Images from the original note were not included. [facility] [address] [facility] [address] Visit type: Established Patient Reason for Visit: Earache (Pain in right ear but hears crackles in both ears ) Subjective: Patient ID: Anca Hsu is a 62 y.o. female. HPI patient presents a few days of a crackling feeling in her ears that has worsened to having right-sided ear pain. She wears hearing aids. No otorrhea. Some sinus congestion. Has some pain and swelling of the right jaw and angle of the neck a few days ago. History of mild septal deviation. Not a lot of allergies. Taking Zyrtec and Benadryl without relief. Review of Systems had a fever a while back. No chest pain wheezing. No vomiting or diarrhea. Recent labs show chronic mild anemia. Normal B12 and iron levels. Liver functions normal. Having ongoing right hip and pelvis pain. Still has not heard from orthopedist in regards to MRI scheduling. No change in quality of pain. She is rather comfortable on gabapentin. Also is due for colonoscopy for follow-up polyps in December but she is deferring that study. Bowels are unchanged. No melena or blood or mucus. Allergies Allergen Reactions Lidocaine Anaphylaxis Other reaction(s): Unknown Hale Hives, Itching and Shortness of breath Other reaction(s): Dermatitis, shortness of breath Bupivacaine Other reaction(s): anaphylaxis Bupivacaine Hcl Other reaction(s): anaphylaxis Chlorhexidine Other reaction(s): petichiae rash Meperidine Other reaction(s): Other (See Comments) Mental sx Meperidine Hcl Other reaction(s): ? Procaine Other reaction(s): anaphylaxis Sucralfate Other reaction(s): Other (See Comments) Skin came off in mouth Sulfa Antibiotics Ultrasound Gel Hives and Itching Current Outpatient Medications on File Prior to Visit Medication Sig Dispense Refill acetaminophen (Tylenol 8 Hour) 650 MG ER tablet Take 650 mg by mouth. Alpha-Lipoic Acid 600 MG capsule Take 600 mg by mouth. Ascorbic Acid (vitamin C) 1000 MG tablet Take 1,000 mg by mouth in the morning and 1,000 mg in the evening. biotin 10 MG capsule Every 24 hours. cloNIDine (Catapres) 0.1 MG tablet One q day 30 tablet 5 Emollient (Collagen) cream Every 24 hours. gabapentin (Neurontin) 100 MG capsule One q AM 30 capsule 2 gabapentin (Neurontin) 300 MG capsule TAKE 1 CAPSULE BY MOUTH EVERYDAY AT BEDTIME 30 capsule 2 hydrocortisone (Anusol-HC) 25 MG suppository Date: 07/23/2020 09:49:00 EDT Magnesium 400 MG capsule Take 400 mg by mouth daily. mometasone (Elocon) 0.1 % ointment Apply topically daily. 60 g 1 Multiple Vitamin (Multi Vitamin) tablet Every 24 hours. ondansetron (Zofran) 8 MG tablet Take 1 tablet by mouth every 8 hours as needed. SUMAtriptan (Imitrex) 100 MG tablet TAKE 1 TABLET BY MOUTH NOW THEN REPEAT IN 2 HOURS. NO MORE THAN 4 TABS PER WEEK trospium (Sanctura) 20 MG tablet Every 24 hours. No current facility-administered medications on file prior to visit. Patient Active Problem List Diagnosis Fatty liver Osteoarthritis of right hip Lumbar degenerative disc disease History of migraine Migraine headache Hearing aid worn Complex regional pain syndrome type 1 of right lower extremity Varicose veins of right lower extremity Lumbar foraminal stenosis History of depression Family history of diabetes mellitus (DM) Ex-smoker Fibromyalgia Social History Tobacco Use Smoking status: Former Types: Cigarettes Quit date: 09/13/1991 Years since quittin.2 Smokeless tobacco: Never Substance Use Topics Alcohol use: Yes Past Surgical History: Procedure Laterality Date BLADDER REPAIR 06/18/2020 [facility] CHOLECYSTECTOMY 03/2021 Dr. Hercules COLONOSCOPY 12/2017 [place] - small polyp - rech due 2022 CYSTOCELE REPAIR 06/18/2020 EXPLORATORY LAPAROTOMY 1996 endometriosis GASTRIC BYPASS 11/2018 in [place] HYSTERECTOMY 06/18/2020 still has ovaries/ [place]- Dr. Quesada Aposalist OTHER SURGICAL HISTORY tubal reversal PELVIC LAPAROSCOPY 03/[address] Barbosa RECTOCELE REPAIR 06/18/2020 [facility] SALPINGECTOMY 06/18/2020 TONSILLECTOMY AND ADENOIDECTOMY (HISTORICAL) TOTAL HIP ARTHROPLASTY Right 09/2020 Dr. Duron TUBAL LIGATION 1987 UPPER GASTROINTESTINAL ENDOSCOPY 11/[address] Mtz UPPER GASTROINTESTINAL ENDOSCOPY 12/2017 [place]- mild gastritis [facility]PP[facility] Family History Problem Relation Name Age of Onset Diabetes Sister Cervical cancer Mother Luis Miguel Rheum arthritis Mother [place] Kidney disease Father [place] Parkinsonism Sister Diabetes Mother [place] diet cont, alive age 81 Dementia Father [place] alive age 83 Alcohol abuse Sister Cervical cancer Sister Atrial fibrillation Father Luis Miguel Cancer Father [place] melanoma Multiple sclerosis Sister Cervical cancer Sister COPD Sister Objective: BP 100/65 (BP Location: Left arm, Patient Position: Sitting, BP Cuff Size: Large adult) Pulse 71 Temp 36.6 C (97.8 F) (Temporal) Ht 5' 3 (1.6 m) SpO2 98% BMI 20.90 kg/m Physical Exam nontoxic. Well-hydrated. Slight right septal deviation. Clear PND. No oral masses. No adenopathy. Left eardrum and EAC are normal. Right EAC is patent. Has mild dull retraction of the right eardrum. Mild effusion noted. Heart is regular. Lungs are clear. Abdomen soft nontender in the upper abdomen without hepatosplenomegaly or masses. She defers lower abdominal exam. Assessment / Plan: Anca was seen today for earache. Diagnoses and all orders for this visit: Eustachian tube dysfunction, right (Primary) Acute otitis media, unspecified otitis media type Other orders - cefuroxime (Ceftin) 250 MG tablet; Take 1 tablet (250 mg) by mouth 2 times daily for 10 days. - methylPREDNISolone (Medrol Dospak) 4 MG tablets; Take as directed on package. Patient to call for colonoscopy when ready. Obtain reports of orthopedic consultation from last fall. documented in this encounter [facility] 07-22-2022 History of Present illness Narrative Testing results: PVR results not available and UA results not available.1. Stage IV prolapse,1a. POP-Q 07/22/22: Aa: -3. Ba: -3 C: -8 Gh: 1.5. Pb: 3.5 TVL: 9 Ap: -3. Bp: -3.1b. s/p robotic TLH, BSO sacrocolpopexy, midurethral sling, posterior repair, perineoplasty . POP-Q 11/14/20: Aa: -3. Ba: -3 C: -7 Gh: 2. Pb: 4 TVL: 9 Ap: -3. Bp: -3. (mesh erosion noted on this exam)1d. s/p robotic excision of sacrocolpopexy mesh on . UUI confirmed on UDS - refractory to [id number]. On Trospium 20 mg QD3. [id number]. Bilateral hydronephrosis, no obstructing stones on CTU 02/03/22 and . CRPS5. Iatrophobia6. Pelvic pain - started PFPT 02/18/22Today's Visit:Last seen by myself 05/28/22. 62 year old female presents for routine follow up. Unfortunately, she fractured her pelvis and has not been able to participate in PFPT since August 2022. She reports nocturnal enuresis on a frequent basis. She practices timed voiding every 2 hours during the day as to mitigate her urge incontinence but has experienced leakage when getting out of her truck. She is taking trospium without significant benefit. Additionally, she reports vaginal pressure when standing on her feet for long periods of time and suspects her prolapse may have recurred. 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 She has multiple allergies/adverse reactions, see allergy tab. Patient is a former smoker. [id number] Work Phone: 07-22-2022 History of Present illness Narrative Testing results: PVR results not available and UA results not available.1. Stage IV prolapse,1a. POP-Q 07/22/22: Aa: -3. Ba: -3 C: -8 Gh: 1.5. Pb: 3.5 TVL: 9 Ap: -3. Bp: -3.1b. s/p robotic TLH, BSO sacrocolpopexy, midurethral sling, posterior repair, perineoplasty . POP-Q 11/14/20: Aa: -3. Ba: -3 C: -7 Gh: 2. Pb: 4 TVL: 9 Ap: -3. Bp: -3. (mesh erosion noted on this exam)1d. s/p robotic excision of sacrocolpopexy mesh on . UUI confirmed on UDS - refractory to whziofxcr2e. On Trospium 20 mg QD3. Kklhoquejmijmnc5r. Bilateral hydronephrosis, no obstructing stones on CTU 02/03/22 and . CRPS5. Iatrophobia6. Pelvic pain - started PFPT 02/18/22Today's Visit:Last seen by myself 05/28/22. 62 year old female presents for routine follow up. Unfortunately, she fractured her pelvis and has not been able to participate in PFPT since August 2022. She reports nocturnal enuresis on a frequent basis. She practices timed voiding every 2 hours during the day as to mitigate her urge incontinence but has experienced leakage when getting out of her truck. She is taking trospium without significant benefit. Additionally, she reports vaginal pressure when standing on her feet for long periods of time and suspects her prolapse may have recurred. 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 She has multiple allergies/adverse reactions, see allergy tab. Patient is a former smoker. [id number] [id number] Work Phone: 07-22-2022 History of Present illness Narrative Testing results: PVR results available and reviewed and UA results available and reviewed.1. Stage IV prolapse,1a. POP-Q 07/22/22: Aa: -3. Ba: -3 C: -8 Gh: 1.5. Pb: 3.5 TVL: 9 Ap: -3. Bp: -3.1b. s/p robotic TLH, BSO sacrocolpopexy, midurethral sling, posterior repair, perineoplasty . POP-Q 11/14/20: Aa: -3. Ba: -3 C: -7 Gh: 2. Pb: 4 TVL: 9 Ap: -3. Bp: -3. (mesh erosion noted on this exam)1d. s/p robotic excision of sacrocolpopexy mesh on . UUI confirmed on UDS - refractory to myrbetriq and trospium 20 mg QD2a. s/p cystoscopy and intradetrusor Botox injections 100 units . Anqxugsxezjgolj7r. Bilateral hydronephrosis, no obstructing stones on CTU 02/03/22 and . CRPS5. Iatrophobia6. Pelvic pain - started PFPT 02/18/22Today's Visit:Last seen by myself in the OR 01/12/23. 62 year old female presents for post-operative evaluation s/p cystoscopy and intradetrusor Botox injections 100 units 01/12/23. Her urinary incontinence has improved significantly. She is not waking up at night anymore and she no longer has to wear pull ups. She is very happy with her current symptoms. She is planning an MRI for evaluation of her hip/groin pain and her orthopedist questioned if this may be related to her pelvic organ prolapse repair. She has multiple allergies/adverse reactions, see allergy tab. Denies gross hematuria, dysuria, nocturia, flank pain, and bothersome frequency or urgency. Patient is a former smoker. [id number] [id number] Work Phone: 07-22-2022 History of Present illness Narrative Testing results: PVR results available and reviewed and UA results available and reviewed.1. Stage IV prolapse,1a. POP-Q 07/22/22: Aa: -3. Ba: -3 C: -8 Gh: 1.5. Pb: 3.5 TVL: 9 Ap: -3. Bp: -3.1b. s/p robotic TLH, BSO sacrocolpopexy, midurethral sling, posterior repair, perineoplasty . POP-Q 11/14/20: Aa: -3. Ba: -3 C: -7 Gh: 2. Pb: 4 TVL: 9 Ap: -3. Bp: -3. (mesh erosion noted on this exam)1d. s/p robotic excision of sacrocolpopexy mesh on . UUI confirmed on UDS - refractory to myrbetriq and trospium 20 mg QD2a. s/p cystoscopy and intradetrusor Botox injections 100 units . Ntydysnappzqjxx9s. Bilateral hydronephrosis, no obstructing stones on CTU 02/03/22 and . CRPS5. Iatrophobia6. Pelvic pain - started PFPT 02/18/22Today's Visit:Last seen by myself in the OR 01/12/23. 62 year old female presents for post-operative evaluation s/p cystoscopy and intradetrusor Botox injections 100 units 01/12/23. Her urinary incontinence has improved significantly. She is not waking up at night anymore and she no longer has to wear pull ups. She is very happy with her current symptoms. She is planning an MRI for evaluation of her hip/groin pain and her orthopedist questioned if this may be related to her pelvic organ prolapse repair. She has multiple allergies/adverse reactions, see allergy tab. Denies gross hematuria, dysuria, nocturia, flank pain, and bothersome frequency or urgency. Patient is a former smoker. [facility] [id number] Work Phone: 07-22-2022 History of Present illness Narrative Testing results: PVR 0, PVR results available and reviewed and UA results available and reviewed.1. Stage IV prolapse,1a. POP-Q 07/22/22: Aa: -3. Ba: -3 C: -8 Gh: 1.5. Pb: 3.5 TVL: 9 Ap: -3. Bp: -3.1b. s/p robotic TLH, BSO sacrocolpopexy, midurethral sling, posterior repair, perineoplasty . POP-Q 11/14/20: Aa: -3. Ba: -3 C: -7 Gh: 2. Pb: 4 TVL: 9 Ap: -3. Bp: -3. (mesh erosion noted on this exam)1d. s/p robotic excision of sacrocolpopexy mesh on . UUI confirmed on UDS2a. On Trospium 20 mg QD3. Iojuyvmwhinhpok2a. Bilateral hydronephrosis, no obstructing stones on CTU 02/03/22 and . CRPS5. Iatrophobia6. Pelvic pain - started PFPT 02/18/22Today's Visit:Last seen by myself 02/19/22. 61 year old female presents for routine follow up. She was considering a clinical trial involving metabolic evaluation with 24 hour urine collection at [facility], but she did not qualify.. Last visit, she noted sensation of sandpaper in her vagina as well as vaginal pain described as burning with and without urination. Premarin was recommended but she has not used it. Patient is instead interested in hyaluronic acid. She has continued with PFPT at [place] but only once per month since her referred visits were completed. Her bowel movements have improved significantly and she is now regular. Her stress incontinence has also improved significantly and she can now lift groceries without leaking. She continues with pelvic pain described as burning which causes her to stand up. This has not changed, but she is planning to begin biofeedback therapy. Additionally, she passed more kidney stones with minor flank pain and mild gross hematuria. She had been keeping her fluid intake high. [facility] Work Phone: 07-22-2022 History of Present illness Narrative Testing results: PVR results not available and UA results not available.1. Stage IV prolapse,1a. POP-Q 07/22/22: Aa: -3. Ba: -3 C: -8 Gh: 1.5. Pb: 3.5 TVL: 9 Ap: -3. Bp: -3.1b. s/p robotic TLH, BSO sacrocolpopexy, midurethral sling, posterior repair, perineoplasty . POP-Q 11/14/20: Aa: -3. Ba: -3 C: -7 Gh: 2. Pb: 4 TVL: 9 Ap: -3. Bp: -3. (mesh erosion noted on this exam)1d. s/p robotic excision of sacrocolpopexy mesh on . UUI confirmed on UDS - refractory to myrbetriq and trospium 20 mg QD2a. s/p cystoscopy and intradetrusor Botox injections 100 units b. s/p cystoscopy and intradetrusor Botox injections 200 units . Gcgjpgknmrxxlpv6u. Bilateral hydronephrosis, no obstructing stones on CTU 02/03/22 and . CRPS5. Iatrophobia6. Pelvic pain - started PFPT 02/18/22Today's Visit:Last seen by myself in the OR 07/20/23 for intradetrusor cystoscopic Botox injection 200 units. 62 y/o female presents for follow-up of her symptoms. She reports that she has been doing well since Botox, and she has had 100% improvement in frequency and incontinence. She had some difficulty voiding last week that has now resolved. Prior to Botox injections, her NTF 3-4x. Currently, NTF x0. Her family member near [place] recently . Refer to allergies section of this note for allergies. Patient is a former smoker. [facility] [id number] Work Phone: 07-22-2022 History of Present illness Narrative Testing results: PVR results not available and UA results not available.1. Stage IV prolapse,1a. POP-Q 07/22/22: Aa: -3. Ba: -3 C: -8 Gh: 1.5. Pb: 3.5 TVL: 9 Ap: -3. Bp: -3.1b. s/p robotic TLH, BSO sacrocolpopexy, midurethral sling, posterior repair, perineoplasty . POP-Q 11/14/20: Aa: -3. Ba: -3 C: -7 Gh: 2. Pb: 4 TVL: 9 Ap: -3. Bp: -3. (mesh erosion noted on this exam)1d. s/p robotic excision of sacrocolpopexy mesh on . UUI confirmed on UDS - refractory to myrbetriq and trospium 20 mg QD2a. s/p cystoscopy and intradetrusor Botox injections 100 units b. s/p cystoscopy and intradetrusor Botox injections 200 units . Tjidkpdhktuqihn7y. Bilateral hydronephrosis, no obstructing stones on CTU 02/03/22 and . CRPS5. Iatrophobia6. Pelvic pain - started PFPT 02/18/22Today's Visit:Last seen by myself in the OR 07/20/23 for intradetrusor cystoscopic Botox injection 200 units. 62 y/o female presents for follow-up of her symptoms. She reports that she has been doing well since Botox, and she has had 100% improvement in frequency and incontinence. She had some difficulty voiding last week that has now resolved. Prior to Botox injections, her NTF 3-4x. Currently, NTF x0. Her family member near [place] recently . Refer to allergies section of this note for allergies. Patient is a former smoker. [facility] [id number] Work Phone: 06-30-2022 History of Present illness Narrative 06/30/2022 :1960 Anca Castillo Hsu HISTORY OF CHIEF COMPLAINT: The patient complains of pain at the base of the both thumb. There was no recent injury or traumatic event that preceded the symptoms. There is pain with any forceful gripping or grasping motion of the hand. Specifically there is pain when taking lids off a jars or even turning doorknobs. The patient denies any numbness or tingling and otherwise has no complaints today. History reviewed. No pertinent past medical history. History reviewed. No pertinent surgical history. Social History Tobacco Use Smoking status: Former Types: Cigarettes Smokeless tobacco: Never Substance Use Topics Alcohol use: Yes Comment: occ Drug use: Never Medications: Current Outpatient Medications Medication Sig Dispense Refill biotin 100 mg/gram powd Take by mouth. collagen, bovine, 100 % powd Take by mouth. acetaminophen 650 mg CR tablet Take 650 mg by mouth. Alpha Lipoic Acid 600 mg cap Take 600 mg by mouth. cloNIDine HCl (CATAPRES) 0.1 mg tablet Take 0.1 mg by mouth. gabapentin (NEURONTIN) 300 mg capsule TAKE 1 CAPSULE BY MOUTH EVERYDAY AT BEDTIME magnesium oxide,aspartate,citr (TRIPLE MAGNESIUM COMPLEX) 400 mg magnesium cap Take 400 mg by mouth. ondansetron (ZOFRAN) 8 mg tablet Take 8 mg by mouth. SUMAtriptan (IMITREX) 100 mg tablet One stat and repeat in 2 hours , no more than 4 per week trospium (SANCTURA) 20 mg tablet Take 20 mg by mouth twice daily. No current facility-administered medications for this visit. ALLERGIES Allergen Reactions Demoral [Meperidine] Unknown Sulphated Oil Rash Resp 18 Ht 161.3 cm (5' 3.5) Wt 54.4 kg (120 lb) BMI 20.92 kg/m PHYSICAL EXAMINATION: General: she is a well developed, well nourished female Psyche: she is alert and oriented and cooperative to our examination Skin: Skin condition is healthy without rashes or erythema. Cadiovascular: There is a palpable radial pulse and brisk cap refill distally. Neck: Supple with no JVD Lymph: There is no palpable epitrochlear Pulmonary: she has non labored breathing. There is no evidence of cyanosis. There is no clubbing of his fingernails. she has no pursed lips. Neuro: she is alert and oriented x3. There are no focal neurologic deficits. See sensation exam below. Head: Normocephalic and atraumatic Musculoskeletal: There is no swelling or ecchymosis. There are no skin lacerations or abrasions. There are no Heberden's or Patty's nodes. There is no boutonniere or swan-neck deformity of the fingers. There is no ulnar drift of the fingers. There is no intrinsic muscular atrophy. There is a positive shoulder sign over the thumb CMC joint. There is no dorsal subluxation of the ulnar head. There is a positive CMC grind test. There is pain on hyper abduction and hyper opposition of the thumb CMC joint. There is a negative Felicia's maneuver and no active triggering of the thumb. There is full range of motion of the elbow, wrist and fingers. Sensation is intact to light touch distally and vascular exam is normal with brisk cap refill distally. ASSESSMENT: 1. Arthritis of carpometacarpal (CMC) joint of left thumb 2. Arthritis of carpometacarpal (CMC) joint of right thumb PLAN: The patient has severe allergies to local anesthetics and is not a good candidate for a steroid injection. I did offer her a left thumb carpometacarpal arthroplasty. I explained the risks, benefits and potential complications of surgery. She has a history of complex regional pain syndrome from her hip surgery and this is certainly a risk with upper extremity surgery. We had a long discussion about how we would treat CRPS after surgery. She understands these risks and agrees to proceed. She will need a general anesthetic. Please note: This note has been produced using speech recognition software and may contain errors related to that system including grammar, punctuation, spelling, gender and words and phrases that may be inappropriate. documented in this encounter [facility] 02-12-2022 History of Present illness Narrative Episode Visit Count: 6 Therapist That Will Oversee The Plan Of Care: Arely Jeronimo Start of Care Date: 12/26/21 Onset Date: 08/03/20 (recently re-injured in Nov) Patient Identified by Name and Date of : Yes REHABILITATION AND SPORTS THERAPY PHYSICAL THERAPY TREATMENT NOTE ASSESSMENT: Anca Hsu tolerated the session with no issues. She demonstrated no changes in s/s. The patient will continue to benefit from ongoing skilled physical therapy to progress toward set goals. PLAN FOR NEXT VISIT: assess response to nerve glides, joint mobilizations SUBJECTIVE: Pt reports that she was in pain after her last visit. Pain: Pain Pain Level: 6 Pain Location: Ankle - Right OBJECTIVE MEASURES WITH LEVEL OF FUNCTION: TTP R navicular and R tib post LE Strength R Knee Extension (L3): 4-/5 R Knee Flexion: 3-/5 R Ankle Dorsiflexion (L4): 2-/5 R Ankle Plantar Flexion: 3+/5 R Ankle Inversion: 2+/5 R Ankle Eversion: 2+/5 TREATMENT: Therapeutic Exercise: 1: *ankle circles 2: *DF/PF 3: *sidelying nerve glides 4: prone prop x 5 min Skilled Intervention: Patient was educated in proper exercise technique and purpose for exercises. Skilled judgment was provided in selection of appropriate interventions. Manual Therapy: 1: STM R tib post Skilled Intervention: Manual skills to improve joint mobility, ROM, and decrease pain. Utilized anatomy knowledge of the therapist, and assessment of patient's response to intervention. Billing Therapeutic Exercise Treatment Minutes: 20 Manual TherapyTreatment Minutes: 18 Total Treatment Time Minutes (timed/untimed): 40 Arely Jeronimo PT documented in this encounter [facility] 02-03-2022 History of Present illness Narrative Episode Visit Count: 5 Therapist That Will Oversee The Plan Of Care: Mehran Start of Care Date: 12/26/21 Onset Date: 08/03/20 (recently re-injured in Nov) REHABILITATION AND SPORTS THERAPY PHYSICAL THERAPY TREATMENT NOTE ASSESSMENT: Anca Hsu tolerated the session with decreased tolerance due to increased R foot and ankle pain. Session limited due to intolerance to exercises. The patient will continue to benefit from ongoing skilled physical therapy to progress toward set goals. PLAN FOR NEXT VISIT: progress BLE mobility and strength as tolerated SUBJECTIVE: Patient confused why she was scheduled with therapist this date. Patient reports increased pain with HEP and feels like they are a waste of time. Resistant to wanting to warm up on bike. 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 Patient reports falling outside of hospital (passed out) and fell onto left knee. She reports having with her to help. Unclear if she hit her head. She reports scraping her leg. Pain: Pain Pain Level: 3 Pain Location: Foot - Right Pain Level 2: 7 Pain Location 2: Hip - Right OBJECTIVE MEASURES WITH LEVEL OF FUNCTION: Cannot tolerate laying supine and requires pillow to sit on due to sacral pain. TREATMENT: Therapeutic Exercise: 5: LAQ 3' hold 10x 2 7: seated heel/toe december 10 x 2 8: seated hip abd/add 5' 10 x 1 9: R ankle alphabet 10 x 2 10: R ankle cirles 20x each Skilled Intervention: Patient was educated in proper exercise technique and purpose for exercises. Skilled judgment was provided in selection of appropriate interventions. Billing Therapeutic Exercise Treatment Minutes: 40 Total Treatment Time Minutes (timed and untimed codes) : 45 Eliza Perez PT documented in this encounter [facility] 01-27-2022 History of Present illness Narrative Episode Visit Count: 4 Therapist That Will Oversee The Plan Of Care: Mehran Start of Care Date: 12/26/21 Onset Date: 08/03/20 (recently re-injured in Nov) REHABILITATION AND SPORTS THERAPY PHYSICAL THERAPY PROGRESS REPORT PLAN OF CARE UPDATE: Assessment: Anca Hsu demonstrates no improvement in rising from a chair, standing, walking, physical activities and recreational activities. She has made no progress toward PT goals. Patient continues to present with impairments in ADL's, balance, gait, independence in exercise, overall function, range of motion, strength and tissue tenderness that interfere with standing;walking;recreational activities;physical activities;working . Current prognosis is Fair due to: clinical presentation;multiple co- morbidities;advanced age;chronic nature of impairments;limited support system . Little to no progress made since starting PT and feels like her pain is worse . She does not perform HEP due to increased pain with them. She will benefit from continued skilled therapy services to meet the updated goals for this plan of care as noted below. Goals for Episode of Care: created on 12/26/21 through 03/22/22 Porter in home exercise program.- NOT MET Patient will decrease pain rating by 2 points to meet minimal clinical important difference for numeric pain rating scale.- NO CHANGE Patient will increase active ROM of R foot/ankle to 75% WFL to allow pt to to improve performance of ADLs, to improve gait mechanics / gait pattern and to decrease falls risks .-NO CHANGE Patient will demonstrate increase in RLEs strength to 3-/5 during manual muscle testing in order to improve function for basic self-care tasks, home management tasks, leisure / recreation skills, light functional tasks and prior functional tasks.- NO CHANGE Patient will be able to demonstrate improved gait with minimal foot pain for 15-30+ minutes in order to perform occupational duties and/or perform ADLs/FAs with greater ease. - NO CHANGE Patient Goals: decrease pain, improve ankle/foot function Planned Interventions, Frequency, and Duration: 1x/week, 6 weeks Total Number of Visits Planned: 6 Patient to be seen for Therapeutic exercise (43675);Neuromuscular re-education (78782);Manual therapy (58702);Therapeutic activities (79277);Self-detention management (39252);Aquatic PT (86175);Gait Training (71699);Patient/Family/Caregiver Education;Group Therapy (05224) PLAN FOR NEXT VISIT: initiate land PT for general R ankle AROM/strength/pain control SUBJECTIVE: Patient was seen 2x in pool and feels like her pain is worse. She reports that the pool is too cold. Denies working on HEP because they hurt her foot more. Patient was angry because she was sitting in the waiting room 15 min prior to appt time, unaware that her appt time was at 8 am opposed to 7:45. Functional Limitations: standing;walking;recreational activities;physical activities;working Pain: Pain Pain Level: 7 Pain Location: Foot - Right Pain Level 2: 5 Pain Location 2: Hip - Right PROMIS Scales T-scores: mean of general population = 50. 5 points is clinically meaningfully difference Percentiles provide an indication of how the patient's score ranks in relation to the general population. Higher percentile rankings indicate better function/quality of life. 50th percentile is the average of the general population and indicates half of respondents had a worse score. T-scores: mean of general population = 50. 5 points is clinically meaningfully difference Percentiles provide an indication of how the patient's score ranks in relation to the general population. Higher percentile rankings indicate better function/quality of life. 50th percentile is the average of the general population and indicates half of respondents had a worse score. OBJECTIVE MEASURES WITH LEVEL OF FUNCTION: Ankle Observations Ankle Brace/Support: None R Foot Observations: resting ankle inversion LE AROM R Knee Extension: 0 Degrees R Knee Flexion: 130 Degrees R Ankle Dorsiflexion: 5 Degrees R Ankle Plantar Flexion: 50 Degrees R Ankle Inversion: 35 R Ankle Eversion: 5 LE Flexibility R Gastrocnemius Flexibility: significant tightness L Gastrocnemius Flexibility: min LE Strength R Hip Extension: 3/5 R Hip Flexion (L2): 3-/5 R Hip ABduction: 3/5 R Knee Extension (L3): 4-/5 R Knee Flexion: 3-/5 R Ankle Dorsiflexion (L4): 2-/5 R Ankle Plantar Flexion: 3+/5 R Ankle Inversion: 2+/5 R Ankle Eversion: 2+/5 Gait Weight Bearing Status: FWB Gait: Independent Gait Device: None Gait Deviations: Right Lower Extremity;General Deviations Gait Deviations Right Lower Extremity: Heel strike during initial stance decreased;Knee flexion during stance increased;Lacks hip extension beyond mid-stance;Push off during terminal stance decreased;Stance time decreased;Trendelenburg;Weight bearing decreased General Deviations/Observations: Antalgic gait;Maru decreased;Loss of Balance;Step length decreased;Wide base of support TREATMENT: Therapeutic Exercise: 1: AROM R ankle 10 x 2 DF/PF, inversion/eversion 2: standing hip abd 5x 2 3: standing HS curls 5 x 2 4: AROM R ankle circles 10x 2 5: re-assessment 6: marching in place 1 hip at time 5 x 2 7: discussion of importance of performing HEP for progression in therapy Skilled Intervention: Patient was educated in proper exercise technique and purpose for exercises. Reviewed and educated patient on additions/changes for home exercise program similar to todays session. Skilled judgment was provided in selection of appropriate interventions. Discussed with pt the results of the reassessment, goal status, and updated POC. Answered all pt questions and educated pt regarding progress in therapy and updated POC. Pt agreeable to updated plan. Billing Aquatic Therapy Treatment Minutes: 25 Total Treatment Time Minutes (timed and untimed codes) : 30 Eliza Perez, PT documented in this encounter [facility] 01-15-2022 History of Present illness Narrative Episode Visit Count: 3 Therapist That Will Oversee The Plan Of Care: Ana Start of Care Date: 12/26/21 Onset Date: 08/03/20 (recently re-injured in Nov) Patient Identified by Name and Date of : Yes REHABILITATION AND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 Status:Active Family history of malignant neoplasm of urinary bladder: Grandmother(V16.52, Z80.52) Status:Active Family history of cervical c ancer: Mother, Sibling, Aunt(V16.49, Z80.49) Status:Active Blood clot in vein: Father, Grandfather Status:Active Family history of coronary a rtery disease: Father, Grandfather(V17.3, Z82.49) Status:Active Family history of substance abuse: Sibling, Aunt(V17.0, Z81.4) Status:Active Family history of thyroid di sease: Grandmother, Aunt(V18.19, Z83.49) Status:Active Family history of myocardial infarction: Grandfather(V17.3, Z82.49) Status:Active Family history of malignant neoplasm: Uncle(V16.9, Z80.9) Status:Active Unknown Family Member Name Dates Details Family history of migraine h eadaches: Mother, Sibling(V17.2, Z82.0) Status:Active Family history of diabetes m ellitus: Mother, Sibling, Grandmother, Grandfather, Aunt, Uncle(V18.0, Z83.3) Status:Active Family history of glaucoma: Mother(V19.11, Z83.511) Status:Active Family history of hypertensi on: Father, Grandmother, Grandfather(V17.49, Z82.49) Status:Active Family history of hyperlipid emia: Father(V18.19, Z83.438) Status:Active Seizures: Sibling Status:Active Family history of chronic ob structive pulmonary disease: Sibling(V17.6, Z82.5) Status:Active Bowel disease: Sibling Status:Active Family history of kidney dis ease: Sibling(V18.69, Z84.1) Status:Active Family history of cerebrovas cular accident (CVA): Grandmother(V17.1, Z82.3) Status:Active Family history of malignant neoplasm of breast: Grandmother(V16.3, Z80.3) Status:Active Family history of malignant neoplasm of urinary bladder: Grandmother(V16.52, Z80.52) Status:Active Family history of cervical c ancer: Mother, Sibling, Aunt(V16.49, Z80.49) Status:Active Blood clot in vein: Father, Grandfather Status:Active Family history of coronary a rtery disease: Father, Grandfather(V17.3, Z82.49) Status:Active Family history of substance abuse: Sibling, Aunt(V17.0, Z81.4) Status:Active Family history of thyroid di sease: Grandmother, Aunt(V18.19, Z83.49) Status:Active Family history of malignant neoplasm: Uncle(V16.9, Z80.9) Status:Active Family history of myocardial infarction: Grandfather(V17.3, Z82.49) Status:Active Unknown Family Member Name Dates Details Family history of migraine h eadaches: Mother, Sibling(V17.2, Z82.0) Status:Active Family history of diabetes m ellitus: Mother, Sibling, Grandmother, Grandfather, Aunt, Uncle(V18.0, Z83.3) Status:Active Family history of glaucoma: Mother(V19.11, Z83.511) Status:Active Family history of hypertensi on: Father, Grandmother, Grandfather(V17.49, Z82.49) Status:Active Family history of hyperlipid emia: Father(V18.19, Z83.438) Status:Active Seizures: Sibling Status:Active Family history of chronic ob structive pulmonary disease: Sibling(V17.6, Z82.5) Status:Active Bowel disease: Sibling Status:Active Family history of kidney dis ease: Sibling(V18.69, Z84.1) Status:Active Family history of cerebrovas cular accident (CVA): Grandmother(V17.1, Z82.3) Status:Active Family history of malignant neoplasm of breast: Grandmother(V16.3, Z80.3) Status:Active Family history of malignant neoplasm of urinary bladder: Grandmother(V16.52, Z80.52) Status:Active Family history of cervical c ancer: Mother, Sibling, Aunt(V16.49, Z80.49) Status:Active Blood clot in vein: Father, Grandfather Status:Active Family history of coronary a rtery disease: Father, Grandfather(V17.3, Z82.49) Status:Active Family history of substance abuse: Sibling, Aunt(V17.0, Z81.4) Status:Active Family history of thyroid di sease: Grandmother, Aunt(V18.19, Z83.49) Status:Active Family history of malignant neoplasm: Uncle(V16.9, Z80.9) Status:Active Family history of myocardial infarction: Grandfather(V17.3, Z82.49) Status:Active Unknown Family Member Name Dates Details Family history of migraine h eadaches: Mother, Sibling(V17.2, Z82.0) Status:Active Family history of diabetes m ellitus: Mother, Sibling, Grandmother, Grandfather, Aunt, Uncle(V18.0, Z83.3) Status:Active Family history of glaucoma: Mother(V19.11, Z83.511) Status:Active Family history of hypertensi on: Father, Grandmother, Grandfather(V17.49, Z82.49) Status:Active Family history of hyperlipid emia: Father(V18.19, Z83.438) Status:Active Seizures: Sibling Status:Active Family history of chronic ob structive pulmonary disease: Sibling(V17.6, Z82.5) Status:Active Bowel disease: Sibling Status:Active Family history of kidney dis ease: Sibling(V18.69, Z84.1) Status:Active Family history of cerebrovas cular accident (CVA): Grandmother(V17.1, Z82.3) Status:Active Family history of malignant neoplasm of breast: Grandmother(V16.3, Z80.3) Status:Active Family history of malignant neoplasm of urinary bladder: Grandmother(V16.52, Z80.52) Status:Active Family history of cervical c ancer: Mother, Sibling, Aunt(V16.49, Z80.49) Status:Active Blood clot in vein: Father, Grandfather Status:Active Family history of coronary a rtery disease: Father, Grandfather(V17.3, Z82.49) Status:Active Family history of substance abuse: Sibling, Aunt(V17.0, Z81.4) Status:Active Family history of thyroid di sease: Grandmother, Aunt(V18.19, Z83.49) Status:Active Family history of myocardial infarction: Grandfather(V17.3, Z82.49) Status:Active Family history of malignant neoplasm: Uncle(V16.9, Z80.9) Status:Active Unknown Family Member Name Dates Details Family history of migraine h eadaches: Mother, Sibling(V17.2, Z82.0) Status:Active Family history of diabetes m ellitus: Mother, Sibling, Grandmother, Grandfather, Aunt, Uncle(V18.0, Z83.3) Status:Active Family history of glaucoma: Mother(V19.11, Z83.511) Status:Active Family history of hypertensi on: Father, Grandmother, Grandfather(V17.49, Z82.49) Status:Active Family history of hyperlipid emia: Father(V18.19, Z83.438) Status:Active Seizures: Sibling Status:Active Family history of chronic ob structive pulmonary disease: Sibling(V17.6, Z82.5) Status:Active Bowel disease: Sibling Status:Active Family history of kidney dis ease: Sibling(V18.69, Z84.1) Status:Active Family history of cerebrovas cular accident (CVA): Grandmother(V17.1, Z82.3) Status:Active Family history of malignant neoplasm of breast: Grandmother(V16.3, Z80.3) Status:Active Family history of malignant neoplasm of urinary bladder: Grandmother(V16.52, Z80.52) Status:Active Family history of cervical c ancer: Mother, Sibling, Aunt(V16.49, Z80.49) Status:Active Blood clot in vein: Father, Grandfather Status:Active Family history of coronary a rtery disease: Father, Grandfather(V17.3, Z82.49) Status:Active Family history of substance abuse: Sibling, Aunt(V17.0, Z81.4) Status:Active Family history of thyroid di sease: Grandmother, Aunt(V18.19, Z83.49) Status:Active Family history of myocardial infarction: Grandfather(V17.3, Z82.49) Status:Active Family history of malignant neoplasm: Uncle(V16.9, Z80.9) Status:Active Unknown Family Member Name Dates Details Family history of migraine h eadaches: Mother, Sibling(V17.2, Z82.0) Status:Active Family history of diabetes m ellitus: Mother, Sibling, Grandmother, Grandfather, Aunt, Uncle(V18.0, Z83.3) Status:Active Family history of glaucoma: Mother(V19.11, Z83.511) Status:Active Family history of hypertensi on: Father, Grandmother, Grandfather(V17.49, Z82.49) Status:Active Family history of hyperlipid emia: Father(V18.19, Z83.438) Status:Active Seizures: Sibling Status:Active Family history of chronic ob structive pulmonary disease: Sibling(V17.6, Z82.5) Status:Active Bowel disease: Sibling Status:Active Family history of kidney dis ease: Sibling(V18.69, Z84.1) Status:Active Family history of cerebrovas cular accident (CVA): Grandmother(V17.1, Z82.3) Status:Active Family history of malignant neoplasm of breast: Grandmother(V16.3, Z80.3) Status:Active Family history of malignant neoplasm of urinary bladder: Grandmother(V16.52, Z80.52) Status:Active Family history of cervical c ancer: Mother, Sibling, Aunt(V16.49, Z80.49) Status:Active Blood clot in vein: Father, Grandfather Status:Active Family history of coronary a rtery disease: Father, Grandfather(V17.3, Z82.49) Status:Active Family history of substance abuse: Sibling, Aunt(V17.0, Z81.4) Status:Active Family history of thyroid di sease: Grandmother, Aunt(V18.19, Z83.49) Status:Active Family history of myocardial infarction: Grandfather(V17.3, Z82.49) Status:Active Family history of malignant neoplasm: Uncle(V16.9, Z80.9) Status:Active Unknown Family Member Name Dates Details Family history of migraine h eadaches: Mother, Sibling(V17.2, Z82.0) Status:Active Family history of diabetes m ellitus: Mother, Sibling, Grandmother, Grandfather, Aunt, Uncle(V18.0, Z83.3) Status:Active Family history of glaucoma: Mother(V19.11, Z83.511) Status:Active Family history of hypertensi on: Father, Grandmother, Grandfather(V17.49, Z82.49) Status:Active Family history of hyperlipid emia: Father(V18.19, Z83.438) Status:Active Seizures: Sibling Status:Active Family history of chronic ob structive pulmonary disease: Sibling(V17.6, Z82.5) Status:Active Bowel disease: Sibling Status:Active Family history of kidney dis ease: Sibling(V18.69, Z84.1) Status:Active Family history of cerebrovas cular accident (CVA): Grandmother(V17.1, Z82.3) Status:Active Family history of malignant neoplasm of breast: Grandmother(V16.3, Z80.3) Status:Active Family history of malignant neoplasm of urinary bladder: Grandmother(V16.52, Z80.52) Status:Active Family history of cervical c ancer: Mother, Sibling, Aunt(V16.49, Z80.49) Status:Active Blood clot in vein: Father, Grandfather Status:Active Family history of coronary a rtery disease: Father, Grandfather(V17.3, Z82.49) Status:Active Family history of substance abuse: Sibling, Aunt(V17.0, Z81.4) Status:Active Family history of thyroid di sease: Grandmother, Aunt(V18.19, Z83.49) Status:Active Family history of myocardial infarction: Grandfather(V17.3, Z82.49) Status:Active Family history of malignant neoplasm: Uncle(V16.9, Z80.9) Status:Active Unknown Family Member Name Dates Details Family history of migraine h eadaches: Mother, Sibling(V17.2, Z82.0) Status:Active Family history of diabetes m ellitus: Mother, Sibling, Grandmother, Grandfather, Aunt, Uncle(V18.0, Z83.3) Status:Active Family history of glaucoma: Mother(V19.11, Z83.511) Status:Active Family history of hypertensi on: Father, Grandmother, Grandfather(V17.49, Z82.49) Status:Active Family history of hyperlipid emia: Father(V18.19, Z83.438) Status:Active Seizures: Sibling Status:Active Family history of chronic ob structive pulmonary disease: Sibling(V17.6, Z82.5) Status:Active Bowel disease: Sibling Status:Active Family history of kidney dis ease: Sibling(V18.69, Z84.1) Status:Active Family history of cerebrovas cular accident (CVA): Grandmother(V17.1, Z82.3) Status:Active Family history of malignant neoplasm of breast: Grandmother(V16.3, Z80.3) Status:Active Family history of malignant neoplasm of urinary bladder: Grandmother(V16.52, Z80.52) Status:Active Family history of cervical c ancer: Mother, Sibling, Aunt(V16.49, Z80.49) Status:Active Blood clot in vein: Father, Grandfather Status:Active Family history of coronary a rtery disease: Father, Grandfather(V17.3, Z82.49) Status:Active Family history of substance abuse: Sibling, Aunt(V17.0, Z81.4) Status:Active Family history of thyroid di sease: Grandmother, Aunt(V18.19, Z83.49) Status:Active Family history of myocardial infarction: Grandfather(V17.3, Z82.49) Status:Active Family history of malignant neoplasm: Uncle(V16.9, Z80.9) Status:Active Unknown Family Member Name Dates Details Family history of migraine h eadaches: Mother, Sibling(V17.2, Z82.0) Status:Active Family history of diabetes m ellitus: Mother, Sibling, Grandmother, Grandfather, Aunt, Uncle(V18.0, Z83.3) Status:Active Family history of glaucoma: Mother(V19.11, Z83.511) Status:Active Family history of hypertensi on: Father, Grandmother, Grandfather(V17.49, Z82.49) Status:Active Family history of hyperlipid emia: Father(V18.19, Z83.438) Status:Active Seizures: Sibling Status:Active Family history of chronic ob structive pulmonary disease: Sibling(V17.6, Z82.5) Status:Active Bowel disease: Sibling Status:Active Family history of kidney dis ease: Sibling(V18.69, Z84.1) Status:Active Family history of cerebrovas cular accident (CVA): Grandmother(V17.1, Z82.3) Status:Active Family history of malignant neoplasm of breast: Grandmother(V16.3, Z80.3) Status:Active Family history of malignant neoplasm of urinary bladder: Grandmother(V16.52, Z80.52) Status:Active Family history of cervical c ancer: Mother, Sibling, Aunt(V16.49, Z80.49) Status:Active Blood clot in vein: Father, Grandfather Status:Active Family history of coronary a rtery disease: Father, Grandfather(V17.3, Z82.49) Status:Active Family history of substance abuse: Sibling, Aunt(V17.0, Z81.4) Status:Active Family history of thyroid di sease: Grandmother, Aunt(V18.19, Z83.49) Status:Active Family history of myocardial infarction: Grandfather(V17.3, Z82.49) Status:Active Family history of malignant neoplasm: Uncle(V16.9, Z80.9) Status:Active Unknown Family Member Name Dates Details Family history of migraine h eadaches: Mother, Sibling(V17.2, Z82.0) Status:Active Family history of diabetes m ellitus: Mother, Sibling, Grandmother, Grandfather, Aunt, Uncle(V18.0, Z83.3) Status:Active Family history of glaucoma: Mother(V19.11, Z83.511) Status:Active Family history of hypertensi on: Father, Grandmother, Grandfather(V17.49, Z82.49) Status:Active Family history of hyperlipid emia: Father(V18.19, Z83.438) Status:Active Seizures: Sibling Status:Active Family history of chronic ob structive pulmonary disease: Sibling(V17.6, Z82.5) Status:Active Bowel disease: Sibling Status:Active Family history of kidney dis ease: Sibling(V18.69, Z84.1) Status:Active Family history of cerebrovas cular accident (CVA): Grandmother(V17.1, Z82.3) Status:Active Family history of malignant neoplasm of breast: Grandmother(V16.3, Z80.3) Status:Active Family history of malignant neoplasm of urinary bladder: Grandmother(V16.52, Z80.52) Status:Active Family history of cervical c ancer: Mother, Sibling, Aunt(V16.49, Z80.49) Status:Active Blood clot in vein: Father, Grandfather Status:Active Family history of coronary a rtery disease: Father, Grandfather(V17.3, Z82.49) Status:Active Family history of substance abuse: Sibling, Aunt(V17.0, Z81.4) Status:Active Family history of thyroid di sease: Grandmother, Aunt(V18.19, Z83.49) Status:Active Family history of myocardial infarction: Grandfather(V17.3, Z82.49) Status:Active Family history of malignant neoplasm: Uncle(V16.9, Z80.9) Status:Active Unknown Family Member Name Dates Details Family history of migraine h eadaches: Mother, Sibling(V17.2, Z82.0) Status:Active Family history of diabetes m ellitus: Mother, Sibling, Grandmother, Grandfather, Aunt, Uncle(V18.0, Z83.3) Status:Active Family history of glaucoma: Mother(V19.11, Z83.511) Status:Active Family history of hypertensi on: Father, Grandmother, Grandfather(V17.49, Z82.49) Status:Active Family history of hyperlipid emia: Father(V18.19, Z83.438) Status:Active Seizures: Sibling Status:Active Family history of chronic ob structive pulmonary disease: Sibling(V17.6, Z82.5) Status:Active Bowel disease: Sibling Status:Active Family history of kidney dis ease: Sibling(V18.69, Z84.1) Status:Active Family history of cerebrovas cular accident (CVA): Grandmother(V17.1, Z82.3) Status:Active Family history of malignant neoplasm of breast: Grandmother(V16.3, Z80.3) Status:Active Family history of malignant neoplasm of urinary bladder: Grandmother(V16.52, Z80.52) Status:Active Family history of cervical c ancer: Mother, Sibling, Aunt(V16.49, Z80.49) Status:Active Blood clot in vein: Father, Grandfather Status:Active Family history of coronary a rtery disease: Father, Grandfather(V17.3, Z82.49) Status:Active Family history of substance abuse: Sibling, Aunt(V17.0, Z81.4) Status:Active Family history of thyroid di sease: Grandmother, Aunt(V18.19, Z83.49) Status:Active Family history of myocardial infarction: Grandfather(V17.3, Z82.49) Status:Active Family history of malignant neoplasm: Uncle(V16.9, Z80.9) Status:Active Unknown Family Member Name Dates Details Family history of migraine h eadaches: Mother, Sibling(V17.2, Z82.0) Status:Active Family history of diabetes m ellitus: Mother, Sibling, Grandmother, Grandfather, Aunt, Uncle(V18.0, Z83.3) Status:Active Family history of glaucoma: Mother(V19.11, Z83.511) Status:Active Family history of hypertensi on: Father, Grandmother, Grandfather(V17.49, Z82.49) Status:Active Family history of hyperlipid emia: Father(V18.19, Z83.438) Status:Active Seizures: Sibling Status:Active Family history of chronic ob structive pulmonary disease: Sibling(V17.6, Z82.5) Status:Active Bowel disease: Sibling Status:Active Family history of kidney dis ease: Sibling(V18.69, Z84.1) Status:Active Family history of cerebrovas cular accident (CVA): Grandmother(V17.1, Z82.3) Status:Active Family history of malignant neoplasm of breast: Grandmother(V16.3, Z80.3) Status:Active Family history of malignant neoplasm of urinary bladder: Grandmother(V16.52, Z80.52) Status:Active Family history of cervical c ancer: Mother, Sibling, Aunt(V16.49, Z80.49) Status:Active Blood clot in vein: Father, Grandfather Status:Active Family history of coronary a rtery disease: Father, Grandfather(V17.3, Z82.49) Status:Active Family history of substance abuse: Sibling, Aunt(V17.0, Z81.4) Status:Active Family history of thyroid di sease: Grandmother, Aunt(V18.19, Z83.49) Status:Active Family history of myocardial infarction: Grandfather(V17.3, Z82.49) Status:Active Family history of malignant neoplasm: Uncle(V16.9, Z80.9) Status:Active Seasonal allergies: Mother, Father Status:Active Family history of eczema: Fa ther(V19.4, Z84.0) Status:Active Family history of cardiac di sorder: Father(V17.49, Z82.49) Status:Active Sinus problem: Father Status:Active Food allergy: Mother Status:Active Family history of bronchitis : Sister(V17.6, Z83.6) Status:Active Unknown Family Member Name Dates Details Family history of migraine h eadaches: Mother, Sibling(V17.2, Z82.0) Status:Active Family history of diabetes m ellitus: Mother, Sibling, Grandmother, Grandfather, Aunt, Uncle(V18.0, Z83.3) Status:Active Family history of glaucoma: Mother(V19.11, Z83.511) Status:Active Family history of hypertensi on: Father, Grandmother, Grandfather(V17.49, Z82.49) Status:Active Family history of hyperlipid emia: Father(V18.19, Z83.438) Status:Active Seizures: Sibling Status:Active Family history of chronic ob structive pulmonary disease: Sibling(V17.6, Z82.5) Status:Active Bowel disease: Sibling Status:Active Family history of kidney dis ease: Sibling(V18.69, Z84.1) Status:Active Family history of cerebrovas cular accident (CVA): Grandmother(V17.1, Z82.3) Status:Active Family history of malignant neoplasm of breast: Grandmother(V16.3, Z80.3) Status:Active Family history of malignant neoplasm of urinary bladder: Grandmother(V16.52, Z80.52) Status:Active Family history of cervical c ancer: Mother, Sibling, Aunt(V16.49, Z80.49) Status:Active Blood clot in vein: Father, Grandfather Status:Active Family history of coronary a rtery disease: Father, Grandfather(V17.3, Z82.49) Status:Active Family history of substance abuse: Sibling, Aunt(V17.0, Z81.4) Status:Active Family history of thyroid di sease: Grandmother, Aunt(V18.19, Z83.49) Status:Active Family history of myocardial infarction: Grandfather(V17.3, Z82.49) Status:Active Family history of malignant neoplasm: Uncle(V16.9, Z80.9) Status:Active Seasonal allergies: Mother, Father Status:Active Family history of eczema: Fa ther(V19.4, Z84.0) Status:Active Family history of cardiac di sorder: Father(V17.49, Z82.49) Status:Active Sinus problem: Father Status:Active Food allergy: Mother Status:Active Family history of bronchitis : Sister(V17.6, Z83.6) Status:Active Unknown Family Member Name Dates Details Family history of migraine h eadaches: Mother, Sibling(V17.2, Z82.0) Status:Active Family history of diabetes m ellitus: Mother, Sibling, Grandmother, Grandfather, Aunt, Uncle(V18.0, Z83.3) Status:Active Family history of glaucoma: Mother(V19.11, Z83.511) Status:Active Family history of hypertensi on: Father, Grandmother, Grandfather(V17.49, Z82.49) Status:Active Family history of hyperlipid emia: Father(V18.19, Z83.438) Status:Active Seizures: Sibling Status:Active Family history of chronic ob structive pulmonary disease: Sibling(V17.6, Z82.5) Status:Active Bowel disease: Sibling Status:Active Family history of kidney dis ease: Sibling(V18.69, Z84.1) Status:Active Family history of cerebrovas cular accident (CVA): Grandmother(V17.1, Z82.3) Status:Active Family history of malignant neoplasm of breast: Grandmother(V16.3, Z80.3) Status:Active Family history of malignant neoplasm of urinary bladder: Grandmother(V16.52, Z80.52) Status:Active Family history of cervical c ancer: Mother, Sibling, Aunt(V16.49, Z80.49) Status:Active Blood clot in vein: Father, Grandfather Status:Active Family history of coronary a rtery disease: Father, Grandfather(V17.3, Z82.49) Status:Active Family history of substance abuse: Sibling, Aunt(V17.0, Z81.4) Status:Active Family history of thyroid di sease: Grandmother, Aunt(V18.19, Z83.49) Status:Active Family history of myocardial infarction: Grandfather(V17.3, Z82.49) Status:Active Family history of malignant neoplasm: Uncle(V16.9, Z80.9) Status:Active Seasonal allergies: Mother, Father Status:Active Family history of eczema: Fa ther(V19.4, Z84.0) Status:Active Family history of cardiac di sorder: Father(V17.49, Z82.49) Status:Active Sinus problem: Father Status:Active Food allergy: Mother Status:Active Family history of bronchitis : Sister(V17.6, Z83.6) Status:Active Unknown Family Member Name Dates Details Family history of migraine h eadaches: Mother, Sibling(V17.2, Z82.0) Status:Active Family history of diabetes m ellitus: Mother, Sibling, Grandmother, Grandfather, Aunt, Uncle(V18.0, Z83.3) Status:Active Family history of glaucoma: Mother(V19.11, Z83.511) Status:Active Family history of hypertensi on: Father, Grandmother, Grandfather(V17.49, Z82.49) Status:Active Family history of hyperlipid emia: Father(V18.19, Z83.438) Status:Active Seizures: Sibling Status:Active Family history of chronic ob structive pulmonary disease: Sibling(V17.6, Z82.5) Status:Active Bowel disease: Sibling Status:Active Family history of kidney dis ease: Sibling(V18.69, Z84.1) Status:Active Family history of cerebrovas cular accident (CVA): Grandmother(V17.1, Z82.3) Status:Active Family history of malignant neoplasm of breast: Grandmother(V16.3, Z80.3) Status:Active Family history of malignant neoplasm of urinary bladder: Grandmother(V16.52, Z80.52) Status:Active Family history of cervical c ancer: Mother, Sibling, Aunt(V16.49, Z80.49) Status:Active Blood clot in vein: Father, Grandfather Status:Active Family history of coronary a rtery disease: Father, Grandfather(V17.3, Z82.49) Status:Active Family history of substance abuse: Sibling, Aunt(V17.0, Z81.4) Status:Active Family history of thyroid di sease: Grandmother, Aunt(V18.19, Z83.49) Status:Active Family history of myocardial infarction: Grandfather(V17.3, Z82.49) Status:Active Family history of malignant neoplasm: Uncle(V16.9, Z80.9) Status:Active Seasonal allergies: Mother, Father Status:Active Family history of eczema: Fa ther(V19.4, Z84.0) Status:Active Family history of cardiac di sorder: Father(V17.49, Z82.49) Status:Active Sinus problem: Father Status:Active Food allergy: Mother Status:Active Family history of bronchitis : Sister(V17.6, Z83.6) Status:Active Unknown Family Member Name Dates Details Family history of migraine h eadaches: Mother, Sibling(V17.2, Z82.0) Status:Active Family history of diabetes m ellitus: Mother, Sibling, Grandmother, Grandfather, Aunt, Uncle(V18.0, Z83.3) Status:Active Family history of glaucoma: Mother(V19.11, Z83.511) Status:Active Family history of hypertensi on: Father, Grandmother, Grandfather(V17.49, Z82.49) Status:Active Family history of hyperlipid emia: Father(V18.19, Z83.438) Status:Active Seizures: Sibling Status:Active Family history of chronic ob structive pulmonary disease: Sibling(V17.6, Z82.5) Status:Active Bowel disease: Sibling Status:Active Family history of kidney dis ease: Sibling(V18.69, Z84.1) Status:Active Family history of cerebrovas cular accident (CVA): Grandmother(V17.1, Z82.3) Status:Active Family history of malignant neoplasm of breast: Grandmother(V16.3, Z80.3) Status:Active Family history of malignant neoplasm of urinary bladder: Grandmother(V16.52, Z80.52) Status:Active Family history of cervical c ancer: Mother, Sibling, Aunt(V16.49, Z80.49) Status:Active Blood clot in vein: Father, Grandfather Status:Active Family history of coronary a rtery disease: Father, Grandfather(V17.3, Z82.49) Status:Active Family history of substance abuse: Sibling, Aunt(V17.0, Z81.4) Status:Active Family history of thyroid di sease: Grandmother, Aunt(V18.19, Z83.49) Status:Active Family history of myocardial infarction: Grandfather(V17.3, Z82.49) Status:Active Family history of malignant neoplasm: Uncle(V16.9, Z80.9) Status:Active Seasonal allergies: Mother, Father Status:Active Family history of eczema: Fa ther(V19.4, Z84.0) Status:Active Family history of cardiac di sorder: Father(V17.49, Z82.49) Status:Active Sinus problem: Father Status:Active Food allergy: Mother Status:Active Family history of bronchitis : Sister(V17.6, Z83.6) Status:Active Unknown Family Member Name Dates Details Family history of hyperlipid emia: Father(V18.19, Z83.438) Status:Active Seizures: Sibling Status:Active Family history of chronic ob structive pulmonary disease: Sibling(V17.6, Z82.5) Status:Active Bowel disease: Sibling Status:Active Family history of kidney dis ease: Sibling(V18.69, Z84.1) Status:Active Family history of cerebrovas cular accident (CVA): Grandmother(V17.1, Z82.3) Status:Active Family history of malignant neoplasm of breast: Grandmother(V16.3, Z80.3) Status:Active Family history of malignant neoplasm of urinary bladder: Grandmother(V16.52, Z80.52) Status:Active Family history of cervical c ancer: Mother, Sibling, Aunt(V16.49, Z80.49) Status:Active Blood clot in vein: Father, Grandfather Status:Active Family history of coronary a rtery disease: Father, Grandfather(V17.3, Z82.49) Status:Active Family history of substance abuse: Sibling, Aunt(V17.0, Z81.4) Status:Active Family history of thyroid di sease: Grandmother, Aunt(V18.19, Z83.49) Status:Active Family history of myocardial infarction: Grandfather(V17.3, Z82.49) Status:Active Family history of malignant neoplasm: Uncle(V16.9, Z80.9) Status:Active Seasonal allergies: Mother, Father Status:Active Family history of eczema: Fa ther(V19.4, Z84.0) Status:Active Family history of cardiac di sorder: Father(V17.49, Z82.49) Status:Active Sinus problem: Father Status:Active Food allergy: Mother Status:Active Family history of bronchitis : Sister(V17.6, Z83.6) Status:Active Family history of hypertensi on: Father, Grandmother, Grandfather(V17.49, Z82.49) Status:Active Family history of glaucoma: Mother(V19.11, Z83.511) Status:Active Family history of diabetes m ellitus: Mother, Sibling, Grandmother, Grandfather, Aunt, Uncle(V18.0, Z83.3) Status:Active Family history of migraine h eadaches: Mother, Sibling(V17.2, Z82.0) Status:Active Unknown Family Member Name Dates Details Family history of migraine h eadaches: Mother, Sibling(V17.2, Z82.0) Status:Active Family history of diabetes m ellitus: Mother, Sibling, Grandmother, Grandfather, Aunt, Uncle(V18.0, Z83.3) Status:Active Family history of glaucoma: Mother(V19.11, Z83.511) Status:Active Family history of hypertensi on: Father, Grandmother, Grandfather(V17.49, Z82.49) Status:Active Family history of hyperlipid emia: Father(V18.19, Z83.438) Status:Active Seizures: Sibling Status:Active Family history of chronic ob structive pulmonary disease: Sibling(V17.6, Z82.5) Status:Active Bowel disease: Sibling Status:Active Family history of kidney dis ease: Sibling(V18.69, Z84.1) Status:Active Family history of cerebrovas cular accident (CVA): Grandmother(V17.1, Z82.3) Status:Active Family history of malignant neoplasm of breast: Grandmother(V16.3, Z80.3) Status:Active Family history of malignant neoplasm of urinary bladder: Grandmother(V16.52, Z80.52) Status:Active Family history of cervical c ancer: Mother, Sibling, Aunt(V16.49, Z80.49) Status:Active Blood clot in vein: Father, Grandfather Status:Active Family history of coronary a rtery disease: Father, Grandfather(V17.3, Z82.49) Status:Active Family history of substance abuse: Sibling, Aunt(V17.0, Z81.4) Status:Active Family history of thyroid di sease: Grandmother, Aunt(V18.19, Z83.49) Status:Active Family history of myocardial infarction: Grandfather(V17.3, Z82.49) Status:Active Family history of malignant neoplasm: Uncle(V16.9, Z80.9) Status:Active Seasonal allergies: Mother, Father Status:Active Family history of eczema: Fa ther(V19.4, Z84.0) Status:Active Family history of cardiac di sorder: Father(V17.49, Z82.49) Status:Active Sinus problem: Father Status:Active Food allergy: Mother Status:Active Family history of bronchitis : Sister(V17.6, Z83.6) Status:Active Unknown Family Member Name Dates Details Family history of migraine h eadaches: Mother, Sibling(V17.2, Z82.0) Status:Active Family history of diabetes m ellitus: Mother, Sibling, Grandmother, Grandfather, Aunt, Uncle(V18.0, Z83.3) Status:Active Family history of glaucoma: Mother(V19.11, Z83.511) Status:Active Family history of hypertensi on: Father, Grandmother, Grandfather(V17.49, Z82.49) Status:Active Family history of hyperlipid emia: Father(V18.19, Z83.438) Status:Active Seizures: Sibling Status:Active Family history of chronic ob structive pulmonary disease: Sibling(V17.6, Z82.5) Status:Active Bowel disease: Sibling Status:Active Family history of kidney dis ease: Sibling(V18.69, Z84.1) Status:Active Family history of cerebrovas cular accident (CVA): Grandmother(V17.1, Z82.3) Status:Active Family history of malignant neoplasm of breast: Grandmother(V16.3, Z80.3) Status:Active Family history of malignant neoplasm of urinary bladder: Grandmother(V16.52, Z80.52) Status:Active Family history of cervical c ancer: Mother, Sibling, Aunt(V16.49, Z80.49) Status:Active Blood clot in vein: Father, Grandfather Status:Active Family history of coronary a rtery disease: Father, Grandfather(V17.3, Z82.49) Status:Active Family history of substance abuse: Sibling, Aunt(V17.0, Z81.4) Status:Active Family history of thyroid di sease: Grandmother, Aunt(V18.19, Z83.49) Status:Active Family history of myocardial infarction: Grandfather(V17.3, Z82.49) Status:Active Family history of malignant neoplasm: Uncle(V16.9, Z80.9) Status:Active Seasonal allergies: Mother, Father Status:Active Family history of eczema: Fa ther(V19.4, Z84.0) Status:Active Family history of cardiac di sorder: Father(V17.49, Z82.49) Status:Active Sinus problem: Father Status:Active Food allergy: Mother Status:Active Family history of bronchitis : Sister(V17.6, Z83.6) Status:Active Unknown Family Member Name Dates Details Family history of migraine h eadaches: Mother, Sibling(V17.2, Z82.0) Status:Active Family history of diabetes m ellitus: Mother, Sibling, Grandmother, Grandfather, Aunt, Uncle(V18.0, Z83.3) Status:Active Family history of glaucoma: Mother(V19.11, Z83.511) Status:Active Family history of hypertensi on: Father, Grandmother, Grandfather(V17.49, Z82.49) Status:Active Family history of hyperlipid emia: Father(V18.19, Z83.438) Status:Active Seizures: Sibling Status:Active Family history of chronic ob structive pulmonary disease: Sibling(V17.6, Z82.5) Status:Active Bowel disease: Sibling Status:Active Family history of kidney dis ease: Sibling(V18.69, Z84.1) Status:Active Family history of cerebrovas cular accident (CVA): Grandmother(V17.1, Z82.3) Status:Active Family history of malignant neoplasm of breast: Grandmother(V16.3, Z80.3) Status:Active Family history of malignant neoplasm of urinary bladder: Grandmother(V16.52, Z80.52) Status:Active Family history of cervical c ancer: Mother, Sibling, Aunt(V16.49, Z80.49) Status:Active Blood clot in vein: Father, Grandfather Status:Active Family history of coronary a rtery disease: Father, Grandfather(V17.3, Z82.49) Status:Active Family history of substance abuse: Sibling, Aunt(V17.0, Z81.4) Status:Active Family history of thyroid di sease: Grandmother, Aunt(V18.19, Z83.49) Status:Active Family history of myocardial infarction: Grandfather(V17.3, Z82.49) Status:Active Family history of malignant neoplasm: Uncle(V16.9, Z80.9) Status:Active Seasonal allergies: Mother, Father Status:Active Family history of eczema: Fa ther(V19.4, Z84.0) Status:Active Family history of cardiac di sorder: Father(V17.49, Z82.49) Status:Active Sinus problem: Father Status:Active Food allergy: Mother Status:Active Family history of bronchitis : Sister(V17.6, Z83.6) Status:Active Unknown Family Member Name Dates Details Family history of migraine h eadaches: Mother, Sibling(V17.2, Z82.0) Status:Active Family history of diabetes m ellitus: Mother, Sibling, Grandmother, Grandfather, Aunt, Uncle(V18.0, Z83.3) Status:Active Family history of glaucoma: Mother(V19.11, Z83.511) Status:Active Family history of hypertensi on: Father, Grandmother, Grandfather(V17.49, Z82.49) Status:Active Family history of hyperlipid emia: Father(V18.19, Z83.438) Status:Active Seizures: Sibling Status:Active Family history of chronic ob structive pulmonary disease: Sibling(V17.6, Z82.5) Status:Active Bowel disease: Sibling Status:Active Family history of kidney dis ease: Sibling(V18.69, Z84.1) Status:Active Family history of cerebrovas cular accident (CVA): Grandmother(V17.1, Z82.3) Status:Active Family history of malignant neoplasm of breast: Grandmother(V16.3, Z80.3) Status:Active Family history of malignant neoplasm of urinary bladder: Grandmother(V16.52, Z80.52) Status:Active Family history of cervical c ancer: Mother, Sibling, Aunt(V16.49, Z80.49) Status:Active Blood clot in vein: Father, Grandfather Status:Active Family history of coronary a rtery disease: Father, Grandfather(V17.3, Z82.49) Status:Active Family history of substance abuse: Sibling, Aunt(V17.0, Z81.4) Status:Active Family history of thyroid di sease: Grandmother, Aunt(V18.19, Z83.49) Status:Active Family history of myocardial infarction: Grandfather(V17.3, Z82.49) Status:Active Family history of malignant neoplasm: Uncle(V16.9, Z80.9) Status:Active Seasonal allergies: Mother, Father Status:Active Family history of eczema: Fa ther(V19.4, Z84.0) Status:Active Family history of cardiac di sorder: Father(V17.49, Z82.49) Status:Active Sinus problem: Father Status:Active Food allergy: Mother Status:Active Family history of bronchitis : Sister(V17.6, Z83.6) Status:Active Unknown Family Member Name Dates Details Family history of migraine h eadaches: Mother, Sibling(V17.2, Z82.0) Status:Active Family history of diabetes m ellitus: Mother, Sibling, Grandmother, Grandfather, Aunt, Uncle(V18.0, Z83.3) Status:Active Family history of glaucoma: Mother(V19.11, Z83.511) Status:Active Family history of hypertensi on: Father, Grandmother, Grandfather(V17.49, Z82.49) Status:Active Family history of hyperlipid emia: Father(V18.19, Z83.438) Status:Active Seizures: Sibling Status:Active Family history of chronic ob structive pulmonary disease: Sibling(V17.6, Z82.5) Status:Active Bowel disease: Sibling Status:Active Family history of kidney dis ease: Sibling(V18.69, Z84.1) Status:Active Family history of cerebrovas cular accident (CVA): Grandmother(V17.1, Z82.3) Status:Active Family history of malignant neoplasm of breast: Grandmother(V16.3, Z80.3) Status:Active Family history of malignant neoplasm of urinary bladder: Grandmother(V16.52, Z80.52) Status:Active Family history of cervical c ancer: Mother, Sibling, Aunt(V16.49, Z80.49) Status:Active Blood clot in vein: Father, Grandfather Status:Active Family history of coronary a rtery disease: Father, Grandfather(V17.3, Z82.49) Status:Active Family history of substance abuse: Sibling, Aunt(V17.0, Z81.4) Status:Active Family history of thyroid di sease: Grandmother, Aunt(V18.19, Z83.49) Status:Active Family history of myocardial infarction: Grandfather(V17.3, Z82.49) Status:Active Family history of malignant neoplasm: Uncle(V16.9, Z80.9) Status:Active Seasonal allergies: Mother, Father Status:Active Family history of eczema: Fa ther(V19.4, Z84.0) Status:Active Family history of cardiac di sorder: Father(V17.49, Z82.49) Status:Active Sinus problem: Father Status:Active Food allergy: Mother Status:Active Family history of bronchitis : Sister(V17.6, Z83.6) Status:Active Unknown Family Member Name Dates Details Family history of bronchitis : Sister(V17.6, Z83.6) Status:Active Food allergy: Mother Status:Active Sinus problem: Father Status:Active Family history of cardiac di sorder: Father(V17.49, Z82.49) Status:Active Family history of eczema: Fa ther(V19.4, Z84.0) Status:Active Seasonal allergies: Mother, Father Status:Active Family history of thyroid di sease: Grandmother, Aunt(V18.19, Z83.49) Status:Active Family history of substance abuse: Sibling, Aunt(V17.0, Z81.4) Status:Active Family history of malignant neoplasm of urinary bladder: Grandmother(V16.52, Z80.52) Status:Active Family history of malignant neoplasm of breast: Grandmother(V16.3, Z80.3) Status:Active Family history of cerebrovas cular accident (CVA): Grandmother(V17.1, Z82.3) Status:Active Family history of kidney dis ease: Sibling(V18.69, Z84.1) Status:Active Bowel disease: Sibling Status:Active Family history of chronic ob structive pulmonary disease: Sibling(V17.6, Z82.5) Status:Active Seizures: Sibling Status:Active Family history of hyperlipid emia: Father(V18.19, Z83.438) Status:Active Family history of hypertensi on: Father, Grandmother, Grandfather(V17.49, Z82.49) Status:Active Family history of glaucoma: Mother(V19.11, Z83.511) Status:Active Family history of diabetes m ellitus: Mother, Sibling, Grandmother, Grandfather, Aunt, Uncle(V18.0, Z83.3) Status:Active Family history of migraine h eadaches: Mother, Sibling(V17.2, Z82.0) Status:Active Family history of cervical c ancer: Mother, Sibling, Aunt(V16.49, Z80.49) Status:Active Blood clot in vein: Father, Grandfather Status:Active Family history of coronary a rtery disease: Father, Grandfather(V17.3, Z82.49) Status:Active Family history of myocardial infarction: Grandfather(V17.3, Z82.49) Status:Active Family history of malignant neoplasm: Uncle(V16.9, Z80.9) Status:Active Unknown Family Member Name Dates Details Family history of migraine h eadaches: Mother, Sibling(V17.2, Z82.0) Status:Active Family history of diabetes m ellitus: Mother, Sibling, Grandmother, Grandfather, Aunt, Uncle(V18.0, Z83.3) Status:Active Family history of glaucoma: Mother(V19.11, Z83.511) Status:Active Family history of hypertensi on: Father, Grandmother, Grandfather(V17.49, Z82.49) Status:Active Family history of hyperlipid emia: Father(V18.19, Z83.438) Status:Active Seizures: Sibling Status:Active Family history of chronic ob structive pulmonary disease: Sibling(V17.6, Z82.5) Status:Active Bowel disease: Sibling Status:Active Family history of kidney dis ease: Sibling(V18.69, Z84.1) Status:Active Family history of cerebrovas cular accident (CVA): Grandmother(V17.1, Z82.3) Status:Active Family history of malignant neoplasm of breast: Grandmother(V16.3, Z80.3) Status:Active Family history of malignant neoplasm of urinary bladder: Grandmother(V16.52, Z80.52) Status:Active Family history of cervical c ancer: Mother, Sibling, Aunt(V16.49, Z80.49) Status:Active Blood clot in vein: Father, Grandfather Status:Active Family history of coronary a rtery disease: Father, Grandfather(V17.3, Z82.49) Status:Active Family history of substance abuse: Sibling, Aunt(V17.0, Z81.4) Status:Active Family history of thyroid di sease: Grandmother, Aunt(V18.19, Z83.49) Status:Active Family history of myocardial infarction: Grandfather(V17.3, Z82.49) Status:Active Family history of malignant neoplasm: Uncle(V16.9, Z80.9) Status:Active Seasonal allergies: Mother, Father Status:Active Family history of eczema: Fa ther(V19.4, Z84.0) Status:Active Family history of cardiac di sorder: Father(V17.49, Z82.49) Status:Active Sinus problem: Father Status:Active Food allergy: Mother Status:Active Family history of bronchitis : Sister(V17.6, Z83.6) Status:Active Unknown Family Member Name Dates Details Family history of migraine h eadaches: Mother, Sibling(V17.2, Z82.0) Status:Active Family history of diabetes m ellitus: Mother, Sibling, Grandmother, Grandfather, Aunt, Uncle(V18.0, Z83.3) Status:Active Family history of glaucoma: Mother(V19.11, Z83.511) Status:Active Family history of hypertensi on: Father, Grandmother, Grandfather(V17.49, Z82.49) Status:Active Family history of hyperlipid emia: Father(V18.19, Z83.438) Status:Active Seizures: Sibling Status:Active Family history of chronic ob structive pulmonary disease: Sibling(V17.6, Z82.5) Status:Active Bowel disease: Sibling Status:Active Family history of kidney dis ease: Sibling(V18.69, Z84.1) Status:Active Family history of cerebrovas cular accident (CVA): Grandmother(V17.1, Z82.3) Status:Active Family history of malignant neoplasm of breast: Grandmother(V16.3, Z80.3) Status:Active Family history of malignant neoplasm of urinary bladder: Grandmother(V16.52, Z80.52) Status:Active Family history of cervical c ancer: Mother, Sibling, Aunt(V16.49, Z80.49) Status:Active Blood clot in vein: Father, Grandfather Status:Active Family history of coronary a rtery disease: Father, Grandfather(V17.3, Z82.49) Status:Active Family history of substance abuse: Sibling, Aunt(V17.0, Z81.4) Status:Active Family history of thyroid di sease: Grandmother, Aunt(V18.19, Z83.49) Status:Active Family history of myocardial infarction: Grandfather(V17.3, Z82.49) Status:Active Family history of malignant neoplasm: Uncle(V16.9, Z80.9) Status:Active Seasonal allergies: Mother, Father Status:Active Family history of eczema: Fa ther(V19.4, Z84.0) Status:Active Family history of cardiac di sorder: Father(V17.49, Z82.49) Status:Active Sinus problem: Father Status:Active Food allergy: Mother Status:Active Family history of bronchitis : Sister(V17.6, Z83.6) Status:Active Unknown Family Member Name Dates Details Family history of migraine h eadaches: Mother, Sibling(V17.2, Z82.0) Status:Active Family history of diabetes m ellitus: Mother, Sibling, Grandmother, Grandfather, Aunt, Uncle(V18.0, Z83.3) Status:Active Family history of glaucoma: Mother(V19.11, Z83.511) Status:Active Family history of hypertensi on: Father, Grandmother, Grandfather(V17.49, Z82.49) Status:Active Family history of hyperlipid emia: Father(V18.19, Z83.438) Status:Active Seizures: Sibling Status:Active Family history of chronic ob structive pulmonary disease: Sibling(V17.6, Z82.5) Status:Active Bowel disease: Sibling Status:Active Family history of kidney dis ease: Sibling(V18.69, Z84.1) Status:Active Family history of cerebrovas cular accident (CVA): Grandmother(V17.1, Z82.3) Status:Active Family history of malignant neoplasm of breast: Grandmother(V16.3, Z80.3) Status:Active Family history of malignant neoplasm of urinary bladder: Grandmother(V16.52, Z80.52) Status:Active Family history of cervical c ancer: Mother, Sibling, Aunt(V16.49, Z80.49) Status:Active Blood clot in vein: Father, Grandfather Status:Active Family history of coronary a rtery disease: Father, Grandfather(V17.3, Z82.49) Status:Active Family history of substance abuse: Sibling, Aunt(V17.0, Z81.4) Status:Active Family history of thyroid di sease: Grandmother, Aunt(V18.19, Z83.49) Status:Active Family history of myocardial infarction: Grandfather(V17.3, Z82.49) Status:Active Family history of malignant neoplasm: Uncle(V16.9, Z80.9) Status:Active Seasonal allergies: Mother, Father Status:Active Family history of eczema: Fa ther(V19.4, Z84.0) Status:Active Family history of cardiac di sorder: Father(V17.49, Z82.49) Status:Active Sinus problem: Father Status:Active Food allergy: Mother Status:Active Family history of bronchitis : Sister(V17.6, Z83.6) Status:Active Unknown Family Member Name Dates Details Family history of migraine h eadaches: Mother, Sibling(V17.2, Z82.0) Status:Active Family history of diabetes m ellitus: Mother, Sibling, Grandmother, Grandfather, Aunt, Uncle(V18.0, Z83.3) Status:Active Family history of glaucoma: Mother(V19.11, Z83.511) Status:Active Family history of hypertensi on: Father, Grandmother, Grandfather(V17.49, Z82.49) Status:Active Family history of hyperlipid emia: Father(V18.19, Z83.438) Status:Active Seizures: Sibling Status:Active Family history of chronic ob structive pulmonary disease: Sibling(V17.6, Z82.5) Status:Active Bowel disease: Sibling Status:Active Family history of kidney dis ease: Sibling(V18.69, Z84.1) Status:Active Family history of cerebrovas cular accident (CVA): Grandmother(V17.1, Z82.3) Status:Active Family history of malignant neoplasm of breast: Grandmother(V16.3, Z80.3) Status:Active Family history of malignant neoplasm of urinary bladder: Grandmother(V16.52, Z80.52) Status:Active Family history of cervical c ancer: Mother, Sibling, Aunt(V16.49, Z80.49) Status:Active Blood clot in vein: Father, Grandfather Status:Active Family history of coronary a rtery disease: Father, Grandfather(V17.3, Z82.49) Status:Active Family history of substance abuse: Sibling, Aunt(V17.0, Z81.4) Status:Active Family history of thyroid di sease: Grandmother, Aunt(V18.19, Z83.49) Status:Active Family history of myocardial infarction: Grandfather(V17.3, Z82.49) Status:Active Family history of malignant neoplasm: Uncle(V16.9, Z80.9) Status:Active Seasonal allergies: Mother, Father Status:Active Family history of eczema: Fa ther(V19.4, Z84.0) Status:Active Family history of cardiac di sorder: Father(V17.49, Z82.49) Status:Active Sinus problem: Father Status:Active Food allergy: Mother Status:Active Family history of bronchitis : Sister(V17.6, Z83.6) Status:Active Unknown Family Member Name Dates Details Family history of migraine h eadaches: Mother, Sibling(V17.2, Z82.0) Status:Active Family history of diabetes m ellitus: Mother, Sibling, Grandmother, Grandfather, Aunt, Uncle(V18.0, Z83.3) Status:Active Family history of glaucoma: Mother(V19.11, Z83.511) Status:Active Family history of hypertensi on: Father, Grandmother, Grandfather(V17.49, Z82.49) Status:Active Family history of hyperlipid emia: Father(V18.19, Z83.438) Status:Active Seizures: Sibling Status:Active Family history of chronic ob structive pulmonary disease: Sibling(V17.6, Z82.5) Status:Active Bowel disease: Sibling Status:Active Family history of kidney dis ease: Sibling(V18.69, Z84.1) Status:Active Family history of cerebrovas cular accident (CVA): Grandmother(V17.1, Z82.3) Status:Active Family history of malignant neoplasm of breast: Grandmother(V16.3, Z80.3) Status:Active Family history of malignant neoplasm of urinary bladder: Grandmother(V16.52, Z80.52) Status:Active Family history of cervical c ancer: Mother, Sibling, Aunt(V16.49, Z80.49) Status:Active Blood clot in vein: Father, Grandfather Status:Active Family history of coronary a rtery disease: Father, Grandfather(V17.3, Z82.49) Status:Active Family history of substance abuse: Sibling, Aunt(V17.0, Z81.4) Status:Active Family history of thyroid di sease: Grandmother, Aunt(V18.19, Z83.49) Status:Active Family history of myocardial infarction: Grandfather(V17.3, Z82.49) Status:Active Family history of malignant neoplasm: Uncle(V16.9, Z80.9) Status:Active Seasonal allergies: Mother, Father Status:Active Family history of eczema: Fa ther(V19.4, Z84.0) Status:Active Family history of cardiac di sorder: Father(V17.49, Z82.49) Status:Active Sinus problem: Father Status:Active Food allergy: Mother Status:Active Family history of bronchitis : Sister(V17.6, Z83.6) Status:Active Unknown Family Member Name Dates Details Family history of migraine h eadaches: Mother, Sibling(V17.2, Z82.0) Status:Active Family history of diabetes m ellitus: Mother, Sibling, Grandmother, Grandfather, Aunt, Uncle(V18.0, Z83.3) Status:Active Family history of glaucoma: Mother(V19.11, Z83.511) Status:Active Family history of hypertensi on: Father, Grandmother, Grandfather(V17.49, Z82.49) Status:Active Family history of hyperlipid emia: Father(V18.19, Z83.438) Status:Active Seizures: Sibling Status:Active Family history of chronic ob structive pulmonary disease: Sibling(V17.6, Z82.5) Status:Active Bowel disease: Sibling Status:Active Family history of kidney dis ease: Sibling(V18.69, Z84.1) Status:Active Family history of cerebrovas cular accident (CVA): Grandmother(V17.1, Z82.3) Status:Active Family history of malignant neoplasm of breast: Grandmother(V16.3, Z80.3) Status:Active Family history of malignant neoplasm of urinary bladder: Grandmother(V16.52, Z80.52) Status:Active Family history of cervical c ancer: Mother, Sibling, Aunt(V16.49, Z80.49) Status:Active Blood clot in vein: Father, Grandfather Status:Active Family history of coronary a rtery disease: Father, Grandfather(V17.3, Z82.49) Status:Active Family history of substance abuse: Sibling, Aunt(V17.0, Z81.4) Status:Active Family history of thyroid di sease: Grandmother, Aunt(V18.19, Z83.49) Status:Active Family history of myocardial infarction: Grandfather(V17.3, Z82.49) Status:Active Family history of malignant neoplasm: Uncle(V16.9, Z80.9) Status:Active Seasonal allergies: Mother, Father Status:Active Family history of eczema: Fa ther(V19.4, Z84.0) Status:Active Family history of cardiac di sorder: Father(V17.49, Z82.49) Status:Active Sinus problem: Father Status:Active Food allergy: Mother Status:Active Family history of bronchitis : Sister(V17.6, Z83.6) Status:Active Unknown Family Member Name Dates Details Family history of migraine h eadaches: Mother, Sibling(V17.2, Z82.0) Status:Active Family history of diabetes m ellitus: Mother, Sibling, Grandmother, Grandfather, Aunt, Uncle(V18.0, Z83.3) Status:Active Family history of glaucoma: Mother(V19.11, Z83.511) Status:Active Family history of hypertensi on: Father, Grandmother, Grandfather(V17.49, Z82.49) Status:Active Family history of hyperlipid emia: Father(V18.19, Z83.438) Status:Active Seizures: Sibling Status:Active Family history of chronic ob structive pulmonary disease: Sibling(V17.6, Z82.5) Status:Active Bowel disease: Sibling Status:Active Family history of kidney dis ease: Sibling(V18.69, Z84.1) Status:Active Family history of cerebrovas cular accident (CVA): Grandmother(V17.1, Z82.3) Status:Active Family history of malignant neoplasm of breast: Grandmother(V16.3, Z80.3) Status:Active Family history of malignant neoplasm of urinary bladder: Grandmother(V16.52, Z80.52) Status:Active Family history of cervical c ancer: Mother, Sibling, Aunt(V16.49, Z80.49) Status:Active Blood clot in vein: Father, Grandfather Status:Active Family history of coronary a rtery disease: Father, Grandfather(V17.3, Z82.49) Status:Active Family history of substance abuse: Sibling, Aunt(V17.0, Z81.4) Status:Active Family history of thyroid di sease: Grandmother, Aunt(V18.19, Z83.49) Status:Active Family history of myocardial infarction: Grandfather(V17.3, Z82.49) Status:Active Family history of malignant neoplasm: Uncle(V16.9, Z80.9) Status:Active Seasonal allergies: Mother, Father Status:Active Family history of eczema: Fa ther(V19.4, Z84.0) Status:Active Family history of cardiac di sorder: Father(V17.49, Z82.49) Status:Active Sinus problem: Father Status:Active Food allergy: Mother Status:Active Family history of bronchitis : Sister(V17.6, Z83.6) Status:Active Unknown Family Member Name Dates Details Family history of migraine h eadaches: Mother, Sibling(V17.2, Z82.0) Status:Active Family history of diabetes m ellitus: Mother, Sibling, Grandmother, Grandfather, Aunt, Uncle(V18.0, Z83.3) Status:Active Family history of glaucoma: Mother(V19.11, Z83.511) Status:Active Family history of hypertensi on: Father, Grandmother, Grandfather(V17.49, Z82.49) Status:Active Family history of hyperlipid emia: Father(V18.19, Z83.438) Status:Active Seizures: Sibling Status:Active Family history of chronic ob structive pulmonary disease: Sibling(V17.6, Z82.5) Status:Active Bowel disease: Sibling Status:Active Family history of kidney dis ease: Sibling(V18.69, Z84.1) Status:Active Family history of cerebrovas cular accident (CVA): Grandmother(V17.1, Z82.3) Status:Active Family history of malignant neoplasm of breast: Grandmother(V16.3, Z80.3) Status:Active Family history of malignant neoplasm of urinary bladder: Grandmother(V16.52, Z80.52) Status:Active Family history of cervical c ancer: Mother, Sibling, Aunt(V16.49, Z80.49) Status:Active Blood clot in vein: Father, Grandfather Status:Active Family history of coronary a rtery disease: Father, Grandfather(V17.3, Z82.49) Status:Active Family history of substance abuse: Sibling, Aunt(V17.0, Z81.4) Status:Active Family history of thyroid di sease: Grandmother, Aunt(V18.19, Z83.49) Status:Active Family history of myocardial infarction: Grandfather(V17.3, Z82.49) Status:Active Family history of malignant neoplasm: Uncle(V16.9, Z80.9) Status:Active Seasonal allergies: Mother, Father Status:Active Family history of eczema: Fa ther(V19.4, Z84.0) Status:Active Family history of cardiac di sorder: Father(V17.49, Z82.49) Status:Active Sinus problem: Father Status:Active Food allergy: Mother Status:Active Family history of bronchitis : Sister(V17.6, Z83.6) Status:Active Unknown Family Member Name Dates Details Family history of migraine h eadaches: Mother, Sibling(V17.2, Z82.0) Status:Active Family history of diabetes m ellitus: Mother, Sibling, Grandmother, Grandfather, Aunt, Uncle(V18.0, Z83.3) Status:Active Family history of glaucoma: Mother(V19.11, Z83.511) Status:Active Family history of hypertensi on: Father, Grandmother, Grandfather(V17.49, Z82.49) Status:Active Family history of hyperlipid emia: Father(V18.19, Z83.438) Status:Active Seizures: Sibling Status:Active Family history of chronic ob structive pulmonary disease: Sibling(V17.6, Z82.5) Status:Active Bowel disease: Sibling Status:Active Family history of kidney dis ease: Sibling(V18.69, Z84.1) Status:Active Family history of cerebrovas cular accident (CVA): Grandmother(V17.1, Z82.3) Status:Active Family history of malignant neoplasm of breast: Grandmother(V16.3, Z80.3) Status:Active Family history of malignant neoplasm of urinary bladder: Grandmother(V16.52, Z80.52) Status:Active Family history of cervical c ancer: Mother, Sibling, Aunt(V16.49, Z80.49) Status:Active Blood clot in vein: Father, Grandfather Status:Active Family history of coronary a rtery disease: Father, Grandfather(V17.3, Z82.49) Status:Active Family history of substance abuse: Sibling, Aunt(V17.0, Z81.4) Status:Active Family history of thyroid di sease: Grandmother, Aunt(V18.19, Z83.49) Status:Active Family history of myocardial infarction: Grandfather(V17.3, Z82.49) Status:Active Family history of malignant neoplasm: Uncle(V16.9, Z80.9) Status:Active Seasonal allergies: Mother, Father Status:Active Family history of eczema: Fa ther(V19.4, Z84.0) Status:Active Family history of cardiac di sorder: Father(V17.49, Z82.49) Status:Active Sinus problem: Father Status:Active Food allergy: Mother Status:Active Family history of bronchitis : Sister(V17.6, Z83.6) Status:Active Unknown Family Member Name Dates Details Family history of migraine h eadaches: Mother, Sibling(V17.2, Z82.0) Status:Active Family history of diabetes m ellitus: Mother, Sibling, Grandmother, Grandfather, Aunt, Uncle(V18.0, Z83.3) Status:Active Family history of glaucoma: Mother(V19.11, Z83.511) Status:Active Family history of hypertensi on: Father, Grandmother, Grandfather(V17.49, Z82.49) Status:Active Family history of hyperlipid emia: Father(V18.19, Z83.438) Status:Active Seizures: Sibling Status:Active Family history of chronic ob structive pulmonary disease: Sibling(V17.6, Z82.5) Status:Active Bowel disease: Sibling Status:Active Family history of kidney dis ease: Sibling(V18.69, Z84.1) Status:Active Family history of cerebrovas cular accident (CVA): Grandmother(V17.1, Z82.3) Status:Active Family history of malignant neoplasm of breast: Grandmother(V16.3, Z80.3) Status:Active Family history of malignant neoplasm of urinary bladder: Grandmother(V16.52, Z80.52) Status:Active Family history of cervical c ancer: Mother, Sibling, Aunt(V16.49, Z80.49) Status:Active Blood clot in vein: Father, Grandfather Status:Active Family history of coronary a rtery disease: Father, Grandfather(V17.3, Z82.49) Status:Active Family history of substance abuse: Sibling, Aunt(V17.0, Z81.4) Status:Active Family history of thyroid di sease: Grandmother, Aunt(V18.19, Z83.49) Status:Active Family history of myocardial infarction: Grandfather(V17.3, Z82.49) Status:Active Family history of malignant neoplasm: Uncle(V16.9, Z80.9) Status:Active Seasonal allergies: Mother, Father Status:Active Family history of eczema: Fa ther(V19.4, Z84.0) Status:Active Family history of cardiac di sorder: Father(V17.49, Z82.49) Status:Active Sinus problem: Father Status:Active Food allergy: Mother Status:Active Family history of bronchitis : Sister(V17.6, Z83.6) Status:Active Unknown Family Member Name Dates Details Family history of migraine h eadaches: Mother, Sibling(V17.2, Z82.0) Status:Active Family history of diabetes m ellitus: Mother, Sibling, Grandmother, Grandfather, Aunt, Uncle(V18.0, Z83.3) Status:Active Family history of glaucoma: Mother(V19.11, Z83.511) Status:Active Family history of hypertensi on: Father, Grandmother, Grandfather(V17.49, Z82.49) Status:Active Family history of hyperlipid emia: Father(V18.19, Z83.438) Status:Active Seizures: Sibling Status:Active Family history of chronic ob structive pulmonary disease: Sibling(V17.6, Z82.5) Status:Active Bowel disease: Sibling Status:Active Family history of kidney dis ease: Sibling(V18.69, Z84.1) Status:Active Family history of cerebrovas cular accident (CVA): Grandmother(V17.1, Z82.3) Status:Active Family history of malignant neoplasm of breast: Grandmother(V16.3, Z80.3) Status:Active Family history of malignant neoplasm of urinary bladder: Grandmother(V16.52, Z80.52) Status:Active Family history of cervical c ancer: Mother, Sibling, Aunt(V16.49, Z80.49) Status:Active Blood clot in vein: Father, Grandfather Status:Active Family history of coronary a rtery disease: Father, Grandfather(V17.3, Z82.49) Status:Active Family history of substance abuse: Sibling, Aunt(V17.0, Z81.4) Status:Active Family history of thyroid di sease: Grandmother, Aunt(V18.19, Z83.49) Status:Active Family history of myocardial infarction: Grandfather(V17.3, Z82.49) Status:Active Family history of malignant neoplasm: Uncle(V16.9, Z80.9) Status:Active Seasonal allergies: Mother, Father Status:Active Family history of eczema: Fa ther(V19.4, Z84.0) Status:Active Family history of cardiac di sorder: Father(V17.49, Z82.49) Status:Active Sinus problem: Father Status:Active Food allergy: Mother Status:Active Family history of bronchitis : Sister(V17.6, Z83.6) Status:Active Unknown Family Member Name Dates Details Family history of migraine h eadaches: Mother, Sibling(V17.2, Z82.0) Status:Active Family history of diabetes m ellitus: Mother, Sibling, Grandmother, Grandfather, Aunt, Uncle(V18.0, Z83.3) Status:Active Family history of glaucoma: Mother(V19.11, Z83.511) Status:Active Family history of hypertensi on: Father, Grandmother, Grandfather(V17.49, Z82.49) Status:Active Family history of hyperlipid emia: Father(V18.19, Z83.438) Status:Active Seizures: Sibling Status:Active Family history of chronic ob structive pulmonary disease: Sibling(V17.6, Z82.5) Status:Active Bowel disease: Sibling Status:Active Family history of kidney dis ease: Sibling(V18.69, Z84.1) Status:Active Family history of cerebrovas cular accident (CVA): Grandmother(V17.1, Z82.3) Status:Active Family history of malignant neoplasm of breast: Grandmother(V16.3, Z80.3) Status:Active Family history of malignant neoplasm of urinary bladder: Grandmother(V16.52, Z80.52) Status:Active Family history of cervical c ancer: Mother, Sibling, Aunt(V16.49, Z80.49) Status:Active Blood clot in vein: Father, Grandfather Status:Active Family history of coronary a rtery disease: Father, Grandfather(V17.3, Z82.49) Status:Active Family history of substance abuse: Sibling, Aunt(V17.0, Z81.4) Status:Active Family history of thyroid di sease: Grandmother, Aunt(V18.19, Z83.49) Status:Active Family history of myocardial infarction: Grandfather(V17.3, Z82.49) Status:Active Family history of malignant neoplasm: Uncle(V16.9, Z80.9) Status:Active Seasonal allergies: Mother, Father Status:Active Family history of eczema: Fa ther(V19.4, Z84.0) Status:Active Family history of cardiac di sorder: Father(V17.49, Z82.49) Status:Active Sinus problem: Father Status:Active Food allergy: Mother Status:Active Family history of bronchitis : Sister(V17.6, Z83.6) Status:Active Unknown Family Member Name Dates Details Family history of migraine h eadaches: Mother, Sibling(V17.2, Z82.0) Status:Active Family history of diabetes m ellitus: Mother, Sibling, Grandmother, Grandfather, Aunt, Uncle(V18.0, Z83.3) Status:Active Family history of glaucoma: Mother(V19.11, Z83.511) Status:Active Family history of hypertensi on: Father, Grandmother, Grandfather(V17.49, Z82.49) Status:Active Family history of hyperlipid emia: Father(V18.19, Z83.438) Status:Active Seizures: Sibling Status:Active Family history of chronic ob structive pulmonary disease: Sibling(V17.6, Z82.5) Status:Active Bowel disease: Sibling Status:Active Family history of kidney dis ease: Sibling(V18.69, Z84.1) Status:Active Family history of cerebrovas cular accident (CVA): Grandmother(V17.1, Z82.3) Status:Active Family history of malignant neoplasm of breast: Grandmother(V16.3, Z80.3) Status:Active Family history of malignant neoplasm of urinary bladder: Grandmother(V16.52, Z80.52) Status:Active Family history of cervical c ancer: Mother, Sibling, Aunt(V16.49, Z80.49) Status:Active Blood clot in vein: Father, Grandfather Status:Active Family history of coronary a rtery disease: Father, Grandfather(V17.3, Z82.49) Status:Active Family history of substance abuse: Sibling, Aunt(V17.0, Z81.4) Status:Active Family history of thyroid di sease: Grandmother, Aunt(V18.19, Z83.49) Status:Active Family history of myocardial infarction: Grandfather(V17.3, Z82.49) Status:Active Family history of malignant neoplasm: Uncle(V16.9, Z80.9) Status:Active Seasonal allergies: Mother, Father Status:Active Family history of eczema: Fa ther(V19.4, Z84.0) Status:Active Family history of cardiac di sorder: Father(V17.49, Z82.49) Status:Active Sinus problem: Father Status:Active Food allergy: Mother Status:Active Family history of bronchitis : Sister(V17.6, Z83.6) Status:Active Unknown Family Member Name Dates Details Family history of migraine h eadaches: Mother, Sibling(V17.2, Z82.0) Status:Active Family history of diabetes m ellitus: Mother, Sibling, Grandmother, Grandfather, Aunt, Uncle(V18.0, Z83.3) Status:Active Family history of glaucoma: Mother(V19.11, Z83.511) Status:Active Family history of hypertensi on: Father, Grandmother, Grandfather(V17.49, Z82.49) Status:Active Family history of hyperlipid emia: Father(V18.19, Z83.438) Status:Active Seizures: Sibling Status:Active Family history of chronic ob structive pulmonary disease: Sibling(V17.6, Z82.5) Status:Active Bowel disease: Sibling Status:Active Family history of kidney dis ease: Sibling(V18.69, Z84.1) Status:Active Family history of cerebrovas cular accident (CVA): Grandmother(V17.1, Z82.3) Status:Active Family history of malignant neoplasm of breast: Grandmother(V16.3, Z80.3) Status:Active Family history of malignant neoplasm of urinary bladder: Grandmother(V16.52, Z80.52) Status:Active Family history of cervical c ancer: Mother, Sibling, Aunt(V16.49, Z80.49) Status:Active Blood clot in vein: Father, Grandfather Status:Active Family history of coronary a rtery disease: Father, Grandfather(V17.3, Z82.49) Status:Active Family history of substance abuse: Sibling, Aunt(V17.0, Z81.4) Status:Active Family history of thyroid di sease: Grandmother, Aunt(V18.19, Z83.49) Status:Active Family history of myocardial infarction: Grandfather(V17.3, Z82.49) Status:Active Family history of malignant neoplasm: Uncle(V16.9, Z80.9) Status:Active Seasonal allergies: Mother, Father Status:Active Family history of eczema: Fa ther(V19.4, Z84.0) Status:Active Family history of cardiac di sorder: Father(V17.49, Z82.49) Status:Active Sinus problem: Father Status:Active Food allergy: Mother Status:Active Family history of bronchitis : Sister(V17.6, Z83.6) Status:Active Unknown Family Member Name Dates Details Family history of migraine h eadaches: Mother, Sibling(V17.2, Z82.0) Status:Active Family history of diabetes m ellitus: Mother, Sibling, Grandmother, Grandfather, Aunt, Uncle(V18.0, Z83.3) Status:Active Family history of glaucoma: Mother(V19.11, Z83.511) Status:Active Family history of hypertensi on: Father, Grandmother, Grandfather(V17.49, Z82.49) Status:Active Family history of hyperlipid emia: Father(V18.19, Z83.438) Status:Active Seizures: Sibling Status:Active Family history of chronic ob structive pulmonary disease: Sibling(V17.6, Z82.5) Status:Active Bowel disease: Sibling Status:Active Family history of kidney dis ease: Sibling(V18.69, Z84.1) Status:Active Family history of cerebrovas cular accident (CVA): Grandmother(V17.1, Z82.3) Status:Active Family history of malignant neoplasm of breast: Grandmother(V16.3, Z80.3) Status:Active Family history of malignant neoplasm of urinary bladder: Grandmother(V16.52, Z80.52) Status:Active Family history of cervical c ancer: Mother, Sibling, Aunt(V16.49, Z80.49) Status:Active Blood clot in vein: Father, Grandfather Status:Active Family history of coronary a rtery disease: Father, Grandfather(V17.3, Z82.49) Status:Active Family history of substance abuse: Sibling, Aunt(V17.0, Z81.4) Status:Active Family history of thyroid di sease: Grandmother, Aunt(V18.19, Z83.49) Status:Active Family history of myocardial infarction: Grandfather(V17.3, Z82.49) Status:Active Family history of malignant neoplasm: Uncle(V16.9, Z80.9) Status:Active Seasonal allergies: Mother, Father Status:Active Family history of eczema: Fa ther(V19.4, Z84.0) Status:Active Family history of cardiac di sorder: Father(V17.49, Z82.49) Status:Active Sinus problem: Father Status:Active Food allergy: Mother Status:Active Family history of bronchitis : Sister(V17.6, Z83.6) Status:Active Unknown Family Member Name Dates Details Family history of migraine h eadaches: Mother, Sibling(V17.2, Z82.0) Status:Active Family history of diabetes m ellitus: Mother, Sibling, Grandmother, Grandfather, Aunt, Uncle(V18.0, Z83.3) Status:Active Family history of glaucoma: Mother(V19.11, Z83.511) Status:Active Family history of hypertensi on: Father, Grandmother, Grandfather(V17.49, Z82.49) Status:Active Family history of hyperlipid emia: Father(V18.19, Z83.438) Status:Active Seizures: Sibling Status:Active Family history of chronic ob structive pulmonary disease: Sibling(V17.6, Z82.5) Status:Active Bowel disease: Sibling Status:Active Family history of kidney dis ease: Sibling(V18.69, Z84.1) Status:Active Family history of cerebrovas cular accident (CVA): Grandmother(V17.1, Z82.3) Status:Active Family history of malignant neoplasm of breast: Grandmother(V16.3, Z80.3) Status:Active Family history of malignant neoplasm of urinary bladder: Grandmother(V16.52, Z80.52) Status:Active Family history of cervical c ancer: Mother, Sibling, Aunt(V16.49, Z80.49) Status:Active Blood clot in vein: Father, Grandfather Status:Active Family history of coronary a rtery disease: Father, Grandfather(V17.3, Z82.49) Status:Active Family history of substance abuse: Sibling, Aunt(V17.0, Z81.4) Status:Active Family history of thyroid di sease: Grandmother, Aunt(V18.19, Z83.49) Status:Active Family history of myocardial infarction: Grandfather(V17.3, Z82.49) Status:Active Family history of malignant neoplasm: Uncle(V16.9, Z80.9) Status:Active Seasonal allergies: Mother, Father Status:Active Family history of eczema: Fa ther(V19.4, Z84.0) Status:Active Family history of cardiac di sorder: Father(V17.49, Z82.49) Status:Active Sinus problem: Father Status:Active Food allergy: Mother Status:Active Family history of bronchitis : Sister(V17.6, Z83.6) Status:Active Unknown Family Member Name Dates Details Family history of migraine h eadaches: Mother, Sibling(V17.2, Z82.0) Status:Active Family history of diabetes m ellitus: Mother, Sibling, Grandmother, Grandfather, Aunt, Uncle(V18.0, Z83.3) Status:Active Family history of glaucoma: Mother(V19.11, Z83.511) Status:Active Family history of hypertensi on: Father, Grandmother, Grandfather(V17.49, Z82.49) Status:Active Family history of hyperlipid emia: Father(V18.19, Z83.438) Status:Active Seizures: Sibling Status:Active Family history of chronic ob structive pulmonary disease: Sibling(V17.6, Z82.5) Status:Active Bowel disease: Sibling Status:Active Family history of kidney dis ease: Sibling(V18.69, Z84.1) Status:Active Family history of cerebrovas cular accident (CVA): Grandmother(V17.1, Z82.3) Status:Active Family history of malignant neoplasm of breast: Grandmother(V16.3, Z80.3) Status:Active Family history of malignant neoplasm of urinary bladder: Grandmother(V16.52, Z80.52) Status:Active Family history of cervical c ancer: Mother, Sibling, Aunt(V16.49, Z80.49) Status:Active Blood clot in vein: Father, Grandfather Status:Active Family history of coronary a rtery disease: Father, Grandfather(V17.3, Z82.49) Status:Active Family history of substance abuse: Sibling, Aunt(V17.0, Z81.4) Status:Active Family history of thyroid di sease: Grandmother, Aunt(V18.19, Z83.49) Status:Active Family history of myocardial infarction: Grandfather(V17.3, Z82.49) Status:Active Family history of malignant neoplasm: Uncle(V16.9, Z80.9) Status:Active Seasonal allergies: Mother, Father Status:Active Family history of eczema: Fa ther(V19.4, Z84.0) Status:Active Family history of cardiac di sorder: Father(V17.49, Z82.49) Status:Active Sinus problem: Father Status:Active Food allergy: Mother Status:Active Family history of bronchitis : Sister(V17.6, Z83.6) Status:Active Unknown Family Member Name Dates Details Family history of migraine h eadaches: Mother, Sibling(V17.2, Z82.0) Status:Active Family history of diabetes m ellitus: Mother, Sibling, Grandmother, Grandfather, Aunt, Uncle(V18.0, Z83.3) Status:Active Family history of glaucoma: Mother(V19.11, Z83.511) Status:Active Family history of hypertensi on: Father, Grandmother, Grandfather(V17.49, Z82.49) Status:Active Family history of hyperlipid emia: Father(V18.19, Z83.438) Status:Active Seizures: Sibling Status:Active Family history of chronic ob structive pulmonary disease: Sibling(V17.6, Z82.5) Status:Active Bowel disease: Sibling Status:Active Family history of kidney dis ease: Sibling(V18.69, Z84.1) Status:Active Family history of cerebrovas cular accident (CVA): Grandmother(V17.1, Z82.3) Status:Active Family history of malignant neoplasm of breast: Grandmother(V16.3, Z80.3) Status:Active Family history of malignant neoplasm of urinary bladder: Grandmother(V16.52, Z80.52) Status:Active Family history of cervical c ancer: Mother, Sibling, Aunt(V16.49, Z80.49) Status:Active Blood clot in vein: Father, Grandfather Status:Active Family history of coronary a rtery disease: Father, Grandfather(V17.3, Z82.49) Status:Active Family history of substance abuse: Sibling, Aunt(V17.0, Z81.4) Status:Active Family history of thyroid di sease: Grandmother, Aunt(V18.19, Z83.49) Status:Active Family history of myocardial infarction: Grandfather(V17.3, Z82.49) Status:Active Family history of malignant neoplasm: Uncle(V16.9, Z80.9) Status:Active Seasonal allergies: Mother, Father Status:Active Family history of eczema: Fa ther(V19.4, Z84.0) Status:Active Family history of cardiac di sorder: Father(V17.49, Z82.49) Status:Active Sinus problem: Father Status:Active Food allergy: Mother Status:Active Family history of bronchitis : Sister(V17.6, Z83.6) Status:Active Unknown Family Member Name Dates Details Family history of migraine h eadaches: Mother, Sibling(V17.2, Z82.0) Status:Active Family history of diabetes m ellitus: Mother, Sibling, Grandmother, Grandfather, Aunt, Uncle(V18.0, Z83.3) Status:Active Family history of glaucoma: Mother(V19.11, Z83.511) Status:Active Family history of hypertensi on: Father, Grandmother, Grandfather(V17.49, Z82.49) Status:Active Family history of hyperlipid emia: Father(V18.19, Z83.438) Status:Active Seizures: Sibling Status:Active Family history of chronic ob structive pulmonary disease: Sibling(V17.6, Z82.5) Status:Active Bowel disease: Sibling Status:Active Family history of kidney dis ease: Sibling(V18.69, Z84.1) Status:Active Family history of cerebrovas cular accident (CVA): Grandmother(V17.1, Z82.3) Status:Active Family history of malignant neoplasm of breast: Grandmother(V16.3, Z80.3) Status:Active Family history of malignant neoplasm of urinary bladder: Grandmother(V16.52, Z80.52) Status:Active Family history of cervical c ancer: Mother, Sibling, Aunt(V16.49, Z80.49) Status:Active Blood clot in vein: Father, Grandfather Status:Active Family history of coronary a rtery disease: Father, Grandfather(V17.3, Z82.49) Status:Active Family history of substance abuse: Sibling, Aunt(V17.0, Z81.4) Status:Active Family history of thyroid di sease: Grandmother, Aunt(V18.19, Z83.49) Status:Active Family history of myocardial infarction: Grandfather(V17.3, Z82.49) Status:Active Family history of malignant neoplasm: Uncle(V16.9, Z80.9) Status:Active Seasonal allergies: Mother, Father Status:Active Family history of eczema: Fa ther(V19.4, Z84.0) Status:Active Family history of cardiac di sorder: Father(V17.49, Z82.49) Status:Active Sinus problem: Father Status:Active Food allergy: Mother Status:Active Family history of bronchitis : Sister(V17.6, Z83.6) Status:Active Unknown Family Member Name Dates Details Family history of migraine h eadaches: Mother, Sibling(V17.2, Z82.0) Status:Active Family history of diabetes m ellitus: Mother, Sibling, Grandmother, Grandfather, Aunt, Uncle(V18.0, Z83.3) Status:Active Family history of glaucoma: Mother(V19.11, Z83.511) Status:Active Family history of hypertensi on: Father, Grandmother, Grandfather(V17.49, Z82.49) Status:Active Family history of hyperlipid emia: Father(V18.19, Z83.438) Status:Active Seizures: Sibling Status:Active Family history of chronic ob structive pulmonary disease: Sibling(V17.6, Z82.5) Status:Active Bowel disease: Sibling Status:Active Family history of kidney dis ease: Sibling(V18.69, Z84.1) Status:Active Family history of cerebrovas cular accident (CVA): Grandmother(V17.1, Z82.3) Status:Active Family history of malignant neoplasm of breast: Grandmother(V16.3, Z80.3) Status:Active Family history of malignant neoplasm of urinary bladder: Grandmother(V16.52, Z80.52) Status:Active Family history of cervical c ancer: Mother, Sibling, Aunt(V16.49, Z80.49) Status:Active Blood clot in vein: Father, Grandfather Status:Active Family history of coronary a rtery disease: Father, Grandfather(V17.3, Z82.49) Status:Active Family history of substance abuse: Sibling, Aunt(V17.0, Z81.4) Status:Active Family history of thyroid di sease: Grandmother, Aunt(V18.19, Z83.49) Status:Active Family history of myocardial infarction: Grandfather(V17.3, Z82.49) Status:Active Family history of malignant neoplasm: Uncle(V16.9, Z80.9) Status:Active Seasonal allergies: Mother, Father Status:Active Family history of eczema: Fa ther(V19.4, Z84.0) Status:Active Family history of cardiac di sorder: Father(V17.49, Z82.49) Status:Active Sinus problem: Father Status:Active Food allergy: Mother Status:Active Family history of bronchitis : Sister(V17.6, Z83.6) Status:Active Unknown Family Member Name Dates Details Family history of migraine h eadaches: Mother, Sibling(V17.2, Z82.0) Status:Active Family history of diabetes m ellitus: Mother, Sibling, Grandmother, Grandfather, Aunt, Uncle(V18.0, Z83.3) Status:Active Family history of glaucoma: Mother(V19.11, Z83.511) Status:Active Family history of hypertensi on: Father, Grandmother, Grandfather(V17.49, Z82.49) Status:Active Family history of hyperlipid emia: Father(V18.19, Z83.438) Status:Active Seizures: Sibling Status:Active Family history of chronic ob structive pulmonary disease: Sibling(V17.6, Z82.5) Status:Active Bowel disease: Sibling Status:Active Family history of kidney dis ease: Sibling(V18.69, Z84.1) Status:Active Family history of cerebrovas cular accident (CVA): Grandmother(V17.1, Z82.3) Status:Active Family history of malignant neoplasm of breast: Grandmother(V16.3, Z80.3) Status:Active Family history of malignant neoplasm of urinary bladder: Grandmother(V16.52, Z80.52) Status:Active Blood clot in vein: Father, Grandfather Status:Active Family history of coronary a rtery disease: Father, Grandfather(V17.3, Z82.49) Status:Active Family history of cervical c ancer: Mother, Sibling, Aunt(V16.49, Z80.49) Status:Active Family history of thyroid di sease: Grandmother, Aunt(V18.19, Z83.49) Status:Active Family history of substance abuse: Sibling, Aunt(V17.0, Z81.4) Status:Active Family history of myocardial infarction: Grandfather(V17.3, Z82.49) Status:Active Family history of malignant neoplasm: Uncle(V16.9, Z80.9) Status:Active Seasonal allergies: Mother, Father Status:Active Family history of eczema: Fa ther(V19.4, Z84.0) Status:Active Family history of cardiac di sorder: Father(V17.49, Z82.49) Status:Active Sinus problem: Father Status:Active Food allergy: Mother Status:Active Family history of bronchitis : Sister(V17.6, Z83.6) Status:Active Unknown Family Member Name Dates Details Family history of migraine h eadaches: Mother, Sibling(V17.2, Z82.0) Status:Active Family history of diabetes m ellitus: Mother, Sibling, Grandmother, Grandfather, Aunt, Uncle(V18.0, Z83.3) Status:Active Family history of glaucoma: Mother(V19.11, Z83.511) Status:Active Family history of hypertensi on: Father, Grandmother, Grandfather(V17.49, Z82.49) Status:Active Family history of hyperlipid emia: Father(V18.19, Z83.438) Status:Active Seizures: Sibling Status:Active Family history of chronic ob structive pulmonary disease: Sibling(V17.6, Z82.5) Status:Active Bowel disease: Sibling Status:Active Family history of kidney dis ease: Sibling(V18.69, Z84.1) Status:Active Family history of cerebrovas cular accident (CVA): Grandmother(V17.1, Z82.3) Status:Active Family history of malignant neoplasm of breast: Grandmother(V16.3, Z80.3) Status:Active Family history of malignant neoplasm of urinary bladder: Grandmother(V16.52, Z80.52) Status:Active Family history of cervical c ancer: Mother, Sibling, Aunt(V16.49, Z80.49) Status:Active Blood clot in vein: Father, Grandfather Status:Active Family history of coronary a rtery disease: Father, Grandfather(V17.3, Z82.49) Status:Active Family history of substance abuse: Sibling, Aunt(V17.0, Z81.4) Status:Active Family history of thyroid di sease: Grandmother, Aunt(V18.19, Z83.49) Status:Active Family history of myocardial infarction: Grandfather(V17.3, Z82.49) Status:Active Family history of malignant neoplasm: Uncle(V16.9, Z80.9) Status:Active Seasonal allergies: Mother, Father Status:Active Family history of eczema: Fa ther(V19.4, Z84.0) Status:Active Family history of cardiac di sorder: Father(V17.49, Z82.49) Status:Active Sinus problem: Father Status:Active Food allergy: Mother Status:Active Family history of bronchitis : Sister(V17.6, Z83.6) Status:Active Unknown Family Member Name Dates Details Family history of migraine h eadaches: Mother, Sibling(V17.2, Z82.0) Status:Active Family history of diabetes m ellitus: Mother, Sibling, Grandmother, Grandfather, Aunt, Uncle(V18.0, Z83.3) Status:Active Family history of glaucoma: Mother(V19.11, Z83.511) Status:Active Family history of hypertensi on: Father, Grandmother, Grandfather(V17.49, Z82.49) Status:Active Family history of hyperlipid emia: Father(V18.19, Z83.438) Status:Active Seizures: Sibling Status:Active Family history of chronic ob structive pulmonary disease: Sibling(V17.6, Z82.5) Status:Active Bowel disease: Sibling Status:Active Family history of kidney dis ease: Sibling(V18.69, Z84.1) Status:Active Family history of cerebrovas cular accident (CVA): Grandmother(V17.1, Z82.3) Status:Active Family history of malignant neoplasm of breast: Grandmother(V16.3, Z80.3) Status:Active Family history of malignant neoplasm of urinary bladder: Grandmother(V16.52, Z80.52) Status:Active Family history of cervical c ancer: Mother, Sibling, Aunt(V16.49, Z80.49) Status:Active Blood clot in vein: Father, Grandfather Status:Active Family history of coronary a rtery disease: Father, Grandfather(V17.3, Z82.49) Status:Active Family history of substance abuse: Sibling, Aunt(V17.0, Z81.4) Status:Active Family history of thyroid di sease: Grandmother, Aunt(V18.19, Z83.49) Status:Active Family history of myocardial infarction: Grandfather(V17.3, Z82.49) Status:Active Family history of malignant neoplasm: Uncle(V16.9, Z80.9) Status:Active Seasonal allergies: Mother, Father Status:Active Family history of eczema: Fa ther(V19.4, Z84.0) Status:Active Family history of cardiac di sorder: Father(V17.49, Z82.49) Status:Active Sinus problem: Father Status:Active Food allergy: Mother Status:Active Family history of bronchitis : Sister(V17.6, Z83.6) Status:Active Unknown Family Member Name Dates Details Family history of migraine h eadaches: Mother, Sibling(V17.2, Z82.0) Status:Active Family history of diabetes m ellitus: Mother, Sibling, Grandmother, Grandfather, Aunt, Uncle(V18.0, Z83.3) Status:Active Family history of glaucoma: Mother(V19.11, Z83.511) Status:Active Family history of hypertensi on: Father, Grandmother, Grandfather(V17.49, Z82.49) Status:Active Family history of hyperlipid emia: Father(V18.19, Z83.438) Status:Active Seizures: Sibling Status:Active Family history of chronic ob structive pulmonary disease: Sibling(V17.6, Z82.5) Status:Active Bowel disease: Sibling Status:Active Family history of kidney dis ease: Sibling(V18.69, Z84.1) Status:Active Family history of cerebrovas cular accident (CVA): Grandmother(V17.1, Z82.3) Status:Active Family history of malignant neoplasm of breast: Grandmother(V16.3, Z80.3) Status:Active Family history of malignant neoplasm of urinary bladder: Grandmother(V16.52, Z80.52) Status:Active Family history of cervical c ancer: Mother, Sibling, Aunt(V16.49, Z80.49) Status:Active Blood clot in vein: Father, Grandfather Status:Active Family history of coronary a rtery disease: Father, Grandfather(V17.3, Z82.49) Status:Active Family history of substance abuse: Sibling, Aunt(V17.0, Z81.4) Status:Active Family history of thyroid di sease: Grandmother, Aunt(V18.19, Z83.49) Status:Active Family history of myocardial infarction: Grandfather(V17.3, Z82.49) Status:Active Family history of malignant neoplasm: Uncle(V16.9, Z80.9) Status:Active Seasonal allergies: Mother, Father Status:Active Family history of eczema: Fa ther(V19.4, Z84.0) Status:Active Family history of cardiac di sorder: Father(V17.49, Z82.49) Status:Active Sinus problem: Father Status:Active Food allergy: Mother Status:Active Family history of bronchitis : Sister(V17.6, Z83.6) Status:Active Unknown Family Member Name Dates Details Family history of migraine h eadaches: Mother, Sibling(V17.2, Z82.0) Status:Active Family history of diabetes m ellitus: Mother, Sibling, Grandmother, Grandfather, Aunt, Uncle(V18.0, Z83.3) Status:Active Family history of glaucoma: Mother(V19.11, Z83.511) Status:Active Family history of hypertensi on: Father, Grandmother, Grandfather(V17.49, Z82.49) Status:Active Family history of hyperlipid emia: Father(V18.19, Z83.438) Status:Active Seizures: Sibling Status:Active Family history of chronic ob structive pulmonary disease: Sibling(V17.6, Z82.5) Status:Active Bowel disease: Sibling Status:Active Family history of kidney dis ease: Sibling(V18.69, Z84.1) Status:Active Family history of cerebrovas cular accident (CVA): Grandmother(V17.1, Z82.3) Status:Active Family history of malignant neoplasm of breast: Grandmother(V16.3, Z80.3) Status:Active Family history of malignant neoplasm of urinary bladder: Grandmother(V16.52, Z80.52) Status:Active Family history of cervical c ancer: Mother, Sibling, Aunt(V16.49, Z80.49) Status:Active Blood clot in vein: Father, Grandfather Status:Active Family history of coronary a rtery disease: Father, Grandfather(V17.3, Z82.49) Status:Active Family history of substance abuse: Sibling, Aunt(V17.0, Z81.4) Status:Active Family history of thyroid di sease: Grandmother, Aunt(V18.19, Z83.49) Status:Active Family history of myocardial infarction: Grandfather(V17.3, Z82.49) Status:Active Family history of malignant neoplasm: Uncle(V16.9, Z80.9) Status:Active Seasonal allergies: Mother, Father Status:Active Family history of eczema: Fa ther(V19.4, Z84.0) Status:Active Family history of cardiac di sorder: Father(V17.49, Z82.49) Status:Active Sinus problem: Father Status:Active Food allergy: Mother Status:Active Family history of bronchitis : Sister(V17.6, Z83.6) Status:Active Unknown Family Member Name Dates Details Family history of migraine h eadaches: Mother, Sibling(V17.2, Z82.0) Status:Active Family history of diabetes m ellitus: Mother, Sibling, Grandmother, Grandfather, Aunt, Uncle(V18.0, Z83.3) Status:Active Family history of glaucoma: Mother(V19.11, Z83.511) Status:Active Family history of hypertensi on: Father, Grandmother, Grandfather(V17.49, Z82.49) Status:Active Family history of hyperlipid emia: Father(V18.19, Z83.438) Status:Active Seizures: Sibling Status:Active Family history of chronic ob structive pulmonary disease: Sibling(V17.6, Z82.5) Status:Active Bowel disease: Sibling Status:Active Family history of kidney dis ease: Sibling(V18.69, Z84.1) Status:Active Family history of cerebrovas cular accident (CVA): Grandmother(V17.1, Z82.3) Status:Active Family history of malignant neoplasm of breast: Grandmother(V16.3, Z80.3) Status:Active Family history of malignant neoplasm of urinary bladder: Grandmother(V16.52, Z80.52) Status:Active Family history of cervical c ancer: Mother, Sibling, Aunt(V16.49, Z80.49) Status:Active Blood clot in vein: Father, Grandfather Status:Active Family history of coronary a rtery disease: Father, Grandfather(V17.3, Z82.49) Status:Active Family history of substance abuse: Sibling, Aunt(V17.0, Z81.4) Status:Active Family history of thyroid di sease: Grandmother, Aunt(V18.19, Z83.49) Status:Active Family history of myocardial infarction: Grandfather(V17.3, Z82.49) Status:Active Family history of malignant neoplasm: Uncle(V16.9, Z80.9) Status:Active Seasonal allergies: Mother, Father Status:Active Family history of eczema: Fa ther(V19.4, Z84.0) Status:Active Family history of cardiac di sorder: Father(V17.49, Z82.49) Status:Active Sinus problem: Father Status:Active Food allergy: Mother Status:Active Family history of bronchitis : Sister(V17.6, Z83.6) Status:Active Unknown Family Member Name Dates Details Family history of migraine h eadaches: Mother, Sibling(V17.2, Z82.0) Status:Active Family history of diabetes m ellitus: Mother, Sibling, Grandmother, Grandfather, Aunt, Uncle(V18.0, Z83.3) Status:Active Family history of glaucoma: Mother(V19.11, Z83.511) Status:Active Family history of hypertensi on: Father, Grandmother, Grandfather(V17.49, Z82.49) Status:Active Family history of hyperlipid emia: Father(V18.19, Z83.438) Status:Active Seizures: Sibling Status:Active Family history of chronic ob structive pulmonary disease: Sibling(V17.6, Z82.5) Status:Active Bowel disease: Sibling Status:Active Family history of kidney dis ease: Sibling(V18.69, Z84.1) Status:Active Family history of cerebrovas cular accident (CVA): Grandmother(V17.1, Z82.3) Status:Active Family history of malignant neoplasm of breast: Grandmother(V16.3, Z80.3) Status:Active Family history of malignant neoplasm of urinary bladder: Grandmother(V16.52, Z80.52) Status:Active Family history of cervical c ancer: Mother, Sibling, Aunt(V16.49, Z80.49) Status:Active Blood clot in vein: Father, Grandfather Status:Active Family history of coronary a rtery disease: Father, Grandfather(V17.3, Z82.49) Status:Active Family history of substance abuse: Sibling, Aunt(V17.0, Z81.4) Status:Active Family history of thyroid di sease: Grandmother, Aunt(V18.19, Z83.49) Status:Active Family history of myocardial infarction: Grandfather(V17.3, Z82.49) Status:Active Family history of malignant neoplasm: Uncle(V16.9, Z80.9) Status:Active Seasonal allergies: Mother, Father Status:Active Family history of eczema: Fa ther(V19.4, Z84.0) Status:Active Family history of cardiac di sorder: Father(V17.49, Z82.49) Status:Active Sinus problem: Father Status:Active Food allergy: Mother Status:Active Family history of bronchitis : Sister(V17.6, Z83.6) Status:Active Unknown Family Member Name Dates Details Family history of migraine h eadaches: Mother, Sibling(V17.2, Z82.0) Status:Active Family history of diabetes m ellitus: Mother, Sibling, Grandmother, Grandfather, Aunt, Uncle(V18.0, Z83.3) Status:Active Family history of glaucoma: Mother(V19.11, Z83.511) Status:Active Family history of hypertensi on: Father, Grandmother, Grandfather(V17.49, Z82.49) Status:Active Family history of cervical c ancer: Mother, Sibling, Aunt(V16.49, Z80.49) Status:Active Blood clot in vein: Father, Grandfather Status:Active Family history of coronary a rtery disease: Father, Grandfather(V17.3, Z82.49) Status:Active Family history of substance abuse: Sibling, Aunt(V17.0, Z81.4) Status:Active Family history of thyroid di sease: Grandmother, Aunt(V18.19, Z83.49) Status:Active Seasonal allergies: Mother, Father Status:Active Family history of eczema: Fa ther(V19.4, Z84.0) Status:Active Family history of cardiac di sorder: Father(V17.49, Z82.49) Status:Active Sinus problem: Father Status:Active Food allergy: Mother Status:Active Family history of bronchitis : Sister(V17.6, Z83.6) Status:Active Family history of malignant neoplasm: Uncle(V16.9, Z80.9) Status:Active Family history of myocardial infarction: Grandfather(V17.3, Z82.49) Status:Active Family history of malignant neoplasm of urinary bladder: Grandmother(V16.52, Z80.52) Status:Active Family history of malignant neoplasm of breast: Grandmother(V16.3, Z80.3) Status:Active Family history of cerebrovas cular accident (CVA): Grandmother(V17.1, Z82.3) Status:Active Family history of kidney dis ease: Sibling(V18.69, Z84.1) Status:Active Bowel disease: Sibling Status:Active Family history of chronic ob structive pulmonary disease: Sibling(V17.6, Z82.5) Status:Active Seizures: Sibling Status:Active Family history of hyperlipid emia: Father(V18.19, Z83.438) Status:Active Unknown Family Member Name Dates Details Family history of migraine h eadaches: Mother, Sibling(V17.2, Z82.0) Status:Active Family history of diabetes m ellitus: Mother, Sibling, Grandmother, Grandfather, Aunt, Uncle(V18.0, Z83.3) Status:Active Family history of glaucoma: Mother(V19.11, Z83.511) Status:Active Family history of hypertensi on: Father, Grandmother, Grandfather(V17.49, Z82.49) Status:Active Family history of hyperlipid emia: Father(V18.19, Z83.438) Status:Active Seizures: Sibling Status:Active Family history of chronic ob structive pulmonary disease: Sibling(V17.6, Z82.5) Status:Active Bowel disease: Sibling Status:Active Family history of kidney dis ease: Sibling(V18.69, Z84.1) Status:Active Family history of cerebrovas cular accident (CVA): Grandmother(V17.1, Z82.3) Status:Active Family history of malignant neoplasm of breast: Grandmother(V16.3, Z80.3) Status:Active Family history of malignant neoplasm of urinary bladder: Grandmother(V16.52, Z80.52) Status:Active Family history of cervical c ancer: Mother, Sibling, Aunt(V16.49, Z80.49) Status:Active Blood clot in vein: Father, Grandfather Status:Active Family history of coronary a rtery disease: Father, Grandfather(V17.3, Z82.49) Status:Active Family history of substance abuse: Sibling, Aunt(V17.0, Z81.4) Status:Active Family history of thyroid di sease: Grandmother, Aunt(V18.19, Z83.49) Status:Active Family history of myocardial infarction: Grandfather(V17.3, Z82.49) Status:Active Family history of malignant neoplasm: Uncle(V16.9, Z80.9) Status:Active Seasonal allergies: Mother, Father Status:Active Family history of eczema: Fa ther(V19.4, Z84.0) Status:Active Family history of cardiac di sorder: Father(V17.49, Z82.49) Status:Active Sinus problem: Father Status:Active Food allergy: Mother Status:Active Family history of bronchitis : Sister(V17.6, Z83.6) Status:Active Unknown Family Member Name Dates Details Family history of migraine h eadaches: Mother, Sibling(V17.2, Z82.0) Status:Active Family history of diabetes m ellitus: Mother, Sibling, Grandmother, Grandfather, Aunt, Uncle(V18.0, Z83.3) Status:Active Family history of glaucoma: Mother(V19.11, Z83.511) Status:Active Family history of hypertensi on: Father, Grandmother, Grandfather(V17.49, Z82.49) Status:Active Family history of hyperlipid emia: Father(V18.19, Z83.438) Status:Active Seizures: Sibling Status:Active Family history of chronic ob structive pulmonary disease: Sibling(V17.6, Z82.5) Status:Active Bowel disease: Sibling Status:Active Family history of kidney dis ease: Sibling(V18.69, Z84.1) Status:Active Family history of cerebrovas cular accident (CVA): Grandmother(V17.1, Z82.3) Status:Active Family history of malignant neoplasm of breast: Grandmother(V16.3, Z80.3) Status:Active Family history of malignant neoplasm of urinary bladder: Grandmother(V16.52, Z80.52) Status:Active Family history of cervical c ancer: Mother, Sibling, Aunt(V16.49, Z80.49) Status:Active Blood clot in vein: Father, Grandfather Status:Active Family history of coronary a rtery disease: Father, Grandfather(V17.3, Z82.49) Status:Active Family history of substance abuse: Sibling, Aunt(V17.0, Z81.4) Status:Active Family history of thyroid di sease: Grandmother, Aunt(V18.19, Z83.49) Status:Active Family history of myocardial infarction: Grandfather(V17.3, Z82.49) Status:Active Family history of malignant neoplasm: Uncle(V16.9, Z80.9) Status:Active Seasonal allergies: Mother, Father Status:Active Family history of eczema: Fa ther(V19.4, Z84.0) Status:Active Family history of cardiac di sorder: Father(V17.49, Z82.49) Status:Active Sinus problem: Father Status:Active Food allergy: Mother Status:Active Family history of bronchitis : Sister(V17.6, Z83.6) Status:Active Unknown Family Member Name Dates Details Family history of migraine h eadaches: Mother, Sibling(V17.2, Z82.0) Status:Active Family history of diabetes m ellitus: Mother, Sibling, Grandmother, Grandfather, Aunt, Uncle(V18.0, Z83.3) Status:Active Family history of glaucoma: Mother(V19.11, Z83.511) Status:Active Family history of hypertensi on: Father, Grandmother, Grandfather(V17.49, Z82.49) Status:Active Family history of malignant neoplasm of urinary bladder: Grandmother(V16.52, Z80.52) Status:Active Family history of cervical c ancer: Mother, Sibling, Aunt(V16.49, Z80.49) Status:Active Blood clot in vein: Father, Grandfather Status:Active Family history of coronary a rtery disease: Father, Grandfather(V17.3, Z82.49) Status:Active Family history of substance abuse: Sibling, Aunt(V17.0, Z81.4) Status:Active Family history of thyroid di sease: Grandmother, Aunt(V18.19, Z83.49) Status:Active Seasonal allergies: Mother, Father Status:Active Family history of eczema: Fa ther(V19.4, Z84.0) Status:Active Family history of cardiac di sorder: Father(V17.49, Z82.49) Status:Active Sinus problem: Father Status:Active Food allergy: Mother Status:Active Family history of bronchitis : Sister(V17.6, Z83.6) Status:Active Family history of malignant neoplasm: Uncle(V16.9, Z80.9) Status:Active Family history of myocardial infarction: Grandfather(V17.3, Z82.49) Status:Active Family history of malignant neoplasm of breast: Grandmother(V16.3, Z80.3) Status:Active Family history of cerebrovas cular accident (CVA): Grandmother(V17.1, Z82.3) Status:Active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 Extrusion Bender Relationship Specialty Start Date End Date JavonKory, DO [address] [place] [phone] PCP - General 10/02/15 Extrusion Bender Relationship Specialty Start Date End Date JavonKory, DO [address] [place] [address] PCP - General 10/02/15 Extrusion Bender Relationship Specialty Start Date End Date Javon Kory Tom, DO [address] [place] [phone] PCP - General 10/02/15 Extrusion Bender Relationship Specialty Start Date End Date Javon Kory Tom, DO [address] [place] [phone] PCP - General 10/02/15 Extrusion Bender Relationship Specialty Start Date End Date JavonKory, DO [address] [place] [address] PCP - General 10/02/15 Extrusion Bender Relationship Specialty Start Date End Date JavonKory, DO [address] [place] [address] PCP - General 10/02/15 Extrusion Bender Relationship Specialty Start Date End Date Javon Kory Tom, DO [address] [place] [id number] PCP - General 10/02/15 Extrusion Bender Relationship Specialty Start Date End Date Kory Alejandro, DO [address] [place] [address] PCP General 10/02/15 Extrusion Bender Relationship Specialty Start Date End Date Kory Alejandro, DO [address], [place] [id number] [facility] General 10/02/15 Extrusion Bender Relationship Specialty Start Date End Date Kory Alejandro, DO [address], [place] [id number] [facility] 10/02/15 Extrusion Bender Relationship Specialty Start Date End Date Kory Alejandro DO [address] [place] [address] [facility] 10/02/15 Extrusion Bender Relationship Specialty Start Date End Date Kory Alejandro DO [address] [place] [address] [facility] 10/02/15 FOR RECORDS PERTAINING TO PATIENTS WHO ARE OR HAVE BEEN ENROLLED IN A CHEMICAL DEPENDENCY/SUBSTANCEABUSE PROGRAM, SOME INFORMATION MAY BE OMITTED. This clinical summary was aggregated from multiple sources. Caution should be exercised in using it in the provision of clinical care. This summary normalizes information from multiple sources, and as a consequence, information in this document may materially change the coding, format and clinical context of patient data. In addition, data may be omitted in some cases. CLINICAL DECISIONS SHOULD BE BASED ON THE PRIMARY CLINICAL RECORDS. [facility] [facility]. provides no warranty or guarantee of the accuracy or completeness of information in this document.
--- OUTSIDE RECORDS SUMMARY | 2025-09-07 07:22 | XMS RPT_ITS | CCD ---
Author Organization [facility] Care Team Providers Care Director Of Science Name Role Phone Kory Alejandro Primary Care Provider KARLAAUGUSTINE KORY Tom Primary Care Unavailable Javon Kory Tom Primary Care Provider Karlanathennikos Kory Tom Unavailable [phone] Flip Barbosa Unavailable Javon Kory Tom Unavailable [phone] Unavailable Unavailable Unavailable Unavailable Unavailable Primary Care Provider Unavailabl e Javon Kory Tom Primary Care Provider Javon DOLL Kory Tom Primary Care Provider Flip Barbosa Admitting Unavailable Javon, Dr. Kory Lea Primary Care Debbie vailable Flip Barbosa Referring [...] ROCK, PILO BRAGA Attending Unav ailable RC, LORIS Primary Care Unavailable SELF Referring Unavailable OZIEL ROCK, PILO BRAGA Attending Unav ailable LANZINGER PILO ROCK Referring Unav ailable RC, LORIS Primary Care Unavailable OZIEL ROCK, PILO BRAGA Admitting Unav ailable LANZINGER , PILO BRAGA Attending Unav ailable RC, LORIS Primary Care Unavailable SELF Referring Unavailable OZIEL ROCK, PILO BRAGA Attending Unav ailable RC, LORIS Primary Care Unavailable SANCHEZZINGNARAYAN ROCK, PILO BRAGA Attending Unav ailable RC, LORIS Primary Care Unavailable SELF Referring Unavailable KORY ALEJANDRO Attending Unavailable KORY ALEJANDRO Primary Care Unavailable JAVON, KORY Attending Unavailable KORY ALEJANDRO Primary Care Unavailable KORY ALEJANDRO Primary Care Unavailable KORY ALEJANDRO Attending Unavailable GABINO LUIS Referring Unavai angel ALEJANDRO, [facility] Primary Care Unavail able GABINO LUIS Referring Unavai labquan ALEJANDRO, [facility] Primary Care Unavail able CLINT BERNSTEIN~[phone], CLINT Bañuelos At tending Unavailable CLINT BERNSTEIN~[phone], CLINT Bañuelos Ad mitting Unavailable AA NO PCP NO PCP, NO PCP~[phone] AA NO PCP Pr imary Care Unavailable [...] Care Unavailable GAURANG GIL Attending Unav ailable [facility] Primary Care Unavail able EDGAR BARBOSAONIS K Attending Unavailable [facility] Primary Care Unavail able MARY LIM Attending Unavailable MIRIAN GARCIA Attending Unavailable GENERIC PROVIDER, NO ASSIGNED PCP Primary Care Unavailable HIGABRIELLA, FLIP K Attending Unavailable GENERIC PROVIDER, NO ASSIGNED PCP Primary Care Unavailable MIRIAN GARCIA Attending Unavailable GENERIC PROVIDER, NO ASSIGNED PCP Primary Care Unavailable DEBJAArabella, FLIP K Attending Unavailable [facility] Primary Care Unavail able HIJAZ, FLIP K Attending Unavailable [facility] Primary Care Unavail able MIRIAN GARCIA Attending Unavailable PETRILL, [facility] Primary Care Unavail able GENERIC PROVIDER, NO ASSIGNED PCP Primary Care Unavailable GENERIC PROVIDER, NO ASSIGNED PCP Primary Care Unavailable GENERIC PROVIDER, NO ASSIGNED PCP Primary Care Unavailable [facility] Primary Care Unavail able PETRILLA, [facility] Primary Care Unavail able NORMAN DURON Referring Unavailable GABINO LUIS Referring Unavai lable PETRILL, [facility] Primary Care Unavail able PETRILL, [facility] Referring Unavail able PETRILLA, [facility] Primary Care Unavail able PETRILLA, [facility] Referring Unavail able PETRILLA, [facility] Primary Care Unavail able HIJAZ, FLIP K Admitting Unavailable HIJAZ, FLIP K Attending Unavailable [facility] Primary Care Unavail able HIJAZ, FLIP K Admitting Unavailable HIJAZ, FLIP K Attending Unavailable [facility] Primary Care Unavail able NORMAN DURON Referring Unavailable NORMAN DURON Referring Unavailable REHAN MCRAE Referring Unavailable REHAN MCRAE Attending Unavailable Care Physician, No Primary Primary Care Unava ilable Allergies Allergy Classification Reported Allergen(s) Allergy Type Date of Onset Reaction(s) Facility Adhesive Tape (8 sources) Adhesive Tape Substance Allergy JR-Esslprl-Lf cullen [facility] [address] Work Phone: Bupivacaine (16 sources) Bupivacaine; Translations: [Marcaine SOLN] Drug Allergy Anaphylaxis [facility] Chlorhexidine (1 source) Chlorhexidine Drug Allergy Rash [facility] Latex (1 source) Latex Substance Allergy Unknown [facility] Comment on above: allergic to powder i n gloves Lidocaine (1 source) Lidocaine Drug Allergy Anaphylaxis [facility] Nuts (not including peanuts) (9 sources) Nuts (not including peanuts) Food Allergy Other, Angioedema, Facial Swelling [facility] Comment on above: SOB Opioid Agonists (9 sources) Meperidine; Translations: [Demerol SOLN] Drug Allergy Unknown [facility] Comment on above: Pt states she was to ldshe was allergic, but does not know reaction Procaine (1 source) Procaine Drug Allergy Anaphylaxis [facility] Sulfonamides (antibiotic) (9 sources) Sulfonamides (Antibiotic); Translations: [sulfa] Drug Allergy Rash [facility] Unclassified (1 source) Tree Resp Distress, Rash [facility] Unclassified (1 source) Tape - Adhesive, Bandaids, Paper Blistering Dis. [facility] Unclassified (6 sources) Soap; Translations: [SOAP] 01-03-20 Rash, Itching [facility] Unclassified (6 sources) Perfume; Translations: [PERFUME] 01-03-20 Resp Distress, Other [facility] Comment on above: CAN'T CATCH MY EDVIN TH Unclassified (1 source) ULTRASOUND GEL- ITCHING RASH Rash, Itching [facility] Comment on above: ULTRASOUND GEL- ITCH ING RASH Unclassified (1 source) BLUE DYE- RASH, ITCHING Rash, Itching [facility] Comment on above: BLUE DYE- RASH, ITCH ING Unclassified (20 sources) Novocain SOLN; Translations: [Novocain SOLN] Allergy to drug (finding) SY-Rdwkndi-Vw [place] [facility] [address] Work Phone: Unclassified (20 sources) H-R Ultrasound Jelly GEL; Translations: [H-R Ultrasound Jelly GEL] Allergy to drug (finding) QV-Jsekubg-Nj [place] [facility] [address] Work Phone: Unclassified (20 sources) Crandall; Translations: [WALNUT] Allergy to substance (finding) 07-10-20 [facility] Other [place] [facility] Unclassified (20 sources) Latex Exam Gloves MISC; Translations: [Latex Exam Gloves MISC] Allergy to drug (finding) WL-Cvzeoyw-Fs [facility] [address] Work Phone: Unclassified (20 sources) Chlorhexidine CONC; Translations: [Chlorhexidine CONC] Allergy to drug (finding) DW-Khjzxla-Wz [facility] [address] Work Phone: Unclassified (20 sources) Adhesive Tape TAPE; Translations: [Adhesive Tape TAPE] Allergy to drug (finding) OV-Fdotckl-Jm [facility] [address] Work Phone: (20 sources) Adhesive Tape Propensity to adverse reactions to drug 10-01-20 15 [place], [place] (20 sources) Meperidine; Translations: [Demerol SOLN] Drug Allergy 10-01-20 15 Unknown [place] (4 sources) Sulfonamides (Antibiotic) Propensity to adverse reactions to drug 10-01-20 15 [place] (20 sources) Other; Translations: [OTHER] Propensity to adverse reactions 12-09-19 16 Anaphylaxis [place] (20 sources) Bupivacaine; Translations: [BUPIVACAINE HCL] Drug Allergy 07-18-20 20 [facility] Work Phone: (20 sources) pine bark extract Drug Allergy 11-01-18 70 Dermatitis, Hives, Itching, Shortness Of Breath [facility] Work Phone: (20 sources) Ultrasound Gel Propensity to adverse reactions to drug 07-02-19 96 Hives, Itching [facility] Work Phone: (20 sources) Bupivacaine; Translations: [Marcaine SOLN] Drug Allergy 07-18-20 20 [facility] (20 sources) Bupivacaine; Translations: [Bupivacaine HCl SOLN] Drug Allergy [facility] Work Phone: (20 sources) Dyer nut Allergy to substance (finding) [facility] Work Phone: (20 sources) Sulfamethoxazole; Translations: [sulfa] Drug Allergy [facility] Work Phone: (20 sources) Lidocaine; Translations: [lidocaine] Drug Allergy 11-14-19 16 Anaphylaxis GM-Dtbhwzy-Du [place] [facility] [address] Work Phone: (2 sources) Sulphated Oil Drug Allergy 06-30-20 22 Rash [facility] (9 sources) Sucralfate; Translations: [Carafate] Drug Allergy [facility] [address] Work Phone: (20 sources) Chlorhexidine; Translations: [CHLORHEXIDINE] Drug Allergy 07-01-20 [facility] (20 sources) Meperidine Drug Allergy 09-04-20 22 [facility] (20 sources) Procaine; Translations: [PROCAINE] Drug Allergy 07-01-20 [facility] (20 sources) Sucralfate; Translations: [SUCRALFATE] Drug Allergy 07-01-20 [facility] (20 sources) Sulfamethoxazole; Translations: [SULFAMETHOXAZOLE ] Allergy to substance 01-02-20 [facility] (20 sources) Sulfonamides (Antibiotic) Drug Intolerance 10-01-20 15 [facility] (20 sources) Latex; Translations: [LATEX] Propensity to adverse reactions 06-24-20 22 [facility] (18 sources) Wound Dressings Drug Allergy 06-01-20 23 Rash [facility] (20 sources) moxifloxacin; Translations: [Moxifloxacin HCl TABS] Drug Allergy 07-30-20 23 Swelling, Anaphylaxis [facility] [address] Work Phone: (3 sources) Cashew nut Propensity to adverse reactions 10-07-20 23 Shortness of breath [facility] (13 sources) Blue Dyes (Parenteral) Propensity to adverse reactions 01-05-20 24 Hives, Itching [facility] (11 sources) cashew nut allergenic extract Drug Allergy 10-07-[address] [facility] (2 sources) Dyer nut Propensity to adverse reactions 10-19-[address] [facility] (2 sources) Gyne-Moistrin Drug Allergy 10-19-20 24 Hives [facility] (8 sources) Bupivacaine; Translations: [BUPIVACAINE] Drug Allergy 07-01-20 22 [facility] 1 Repository (5 sources) Samoan walnut allergenic extract; Translations: [TAIWANESE WALNUT] Drug Allergy 01-03-20 24 [facility] 1 Repository (7 sources) Dyer nut; Translations: [PINE NUT] Propensity to adverse reactions to food (disorder) 11-01-18 70 [facility] 1 Repository (5 sources) Quinolones (Antibiotic); Translations: [QUINOLONES] Propensity to adverse reactions to drug (disorder) 01-03-20 24 [facility] 1 Repository (7 sources) Sulfonamides (Antibiotic); Translations: [SULFA (SULFONAMIDE ANTIBIOTICS)] Propensity to adverse reactions to drug (disorder) 07-01-20 22 [facility] 1 Repository (5 sources) Tree and shrub pollen; Translations: [TREE AND SHRUB POLLEN] Propensity to adverse reactions to drug (disorder) 01-03-20 24 [facility] 1 Repository (4 sources) AMOXICILLIN-POT CLAVULANATE; Translations: [AMOXICILLIN-POT CLAVULANATE] Propensity to adverse reactions to drug (disorder) 07-20-20 24 [facility] 1 Repository (5 sources) NUT - UNSPECIFIED; Translations: [NUT - UNSPECIFIED] Propensity to adverse reactions to food (disorder) 01-03-20 24 [facility] 1 Repository (5 sources) ADHESIVE TAPE-SILICONES; Translations: [ADHESIVE TAPE-SILICONES] Propensity to adverse reactions to drug (disorder) 01-03-20 24 [facility] 1 Repository (7 sources) BLUE DYE; Translations: [BLUE DYE] Propensity to adverse reactions to drug (disorder) 07-01-20 22 [facility] 1 Repository (2 sources) Adhesive Tape; Translations: [ADHESIVE TAPE (ROSINS)] Propensity to adverse reactions (disorder) 10-01-20 15 [facility] Repository (3 sources) moxifloxacin; Translations: [MOXIFLOXACIN] Drug Allergy 06-18-20 23 [facility] Repository (2 sources) tree nut, unspecified; Translations: [TREE NUTS] Propensity to adverse reactions to drug (disorder) 07-03-20 [facility] Repository (1 source) Adhesive agent; Translations: [Adhesive] Propensity to adverse reactions (disorder) [facility] Repository (1 source) Bupivacaine Drug Allergy [facility] Repository (1 source) Chlorhexidine Drug Allergy [facility] Repository (1 source) Lidocaine Drug Allergy [facility] Repository (1 source) Meperidine Drug Allergy [facility] Repository (1 source) Sucralfate Drug Allergy [facility] Repository (1 source) Sulfonamides (Antibiotic) Drug allergy (disorder) [facility] Repository (1 source) nut Drug allergy (disorder) [facility] Repository (1 source) Novocain Drug allergy (disorder) [facility] Repository (1 source) ultrasound coupling medium Drug allergy (disorder) [facility] Repository (1 source) pine oil; Translations: [pine oil] Food allergy (disorder) [facility] Repository (1 source) fentaNYL; Translations: [FENTANYL] Drug Allergy 09-03-20 [facility] 2 Repository Medications Current Medications Medication [...] Collagen . 0 Active vit A,C and S-iruqqm-fbpfwgf s (Ocuvite) tablet (13 sources) vit A,C [...] oral tablet (20 sources) Start: 04-02-2020 Biotin 51719 M CG Oral Tablet Quantity: 0 Refills: [...] nasal spray 2 spray polyethylene glycol 3350 71174 mg powder for oral solution (1 source) [...] office if not covered by insurance to [phone] tamsulosin hydrochloride 0.4 mg oral capsule (1 [...] OF SACROCOLPOPEXY MESH IN VAGINA T83.711A R10.2 73946 01-02-2021 Comment on above: ROBOTIC ASSISTED REM OVAL OF SACROCOLPOPEXY MESH IN VAGINA T83.711A R10.2 36548 Unclassified (1 source) Tuberculosis screening status Urinary [...] encounter] Episodic Other aftercare (7 sources) Other [facility] (current) drug therapy; Translations: [Other [facility] (current) drug therapy] Onset: 01-05-2023 Episodic Other [...] Profile (BMP )on 09-04-2025 BUN Normal 4-19 [facility] Comment on above: Result Comment: @ TABITHA TEINT UOSET AND WITH HOLDING SIMPLE THINGS WITH @REGISTRATION. ALINA HAS MANY NOTES. AFTER WORKING ON @ HER ORDER, [facility]. CALLED HER BACK. SHE WANTED [...] #### L 500.2500, L100.0100, L3200.1100, L500.3400 #### [facility] [address] [place], [address] BUN/CRE Normal 10-20 [facility] Comment on above: Result Comment: @ PA [...] #### L 500.2500, L100.0100, L3200.1100, L500.3400 #### [facility] [address] [place], [address] Calcium Normal 7.6-11.0 [facility] Comment on above: Result Comment: @ PA [...] #### L 500.2500, L100.0100, L3200.1100, L500.3400 #### [facility] [address] [place], [address] CL Normal 98-108 [facility] Comment on above: Result Comment: @ PA [...] #### L 500.2500, L100.0100, L3200.1100, L500.3400 #### [facility] [address] [place], [address] CO2 Normal 21.0-32.0 [facility] Comment on above: Result Comment: @ PA [...] #### L 500.2500, L100.0100, L3200.1100, L500.3400 #### [facility] [address] [place], [place], [phone] (901) CREAT,SERUM Normal 0.70-1.20 [facility] Comment on above: Result Comment: @ PA [...] #### L 500.2500, L100.0100, L3200.1100, L500.3400 #### [facility] [address] [place], [address] eGFR Normal >60 [facility] Comment on above: Result Comment: @ PA [...] #### L 500.2500, L100.0100, L3200.1100, L500.3400 #### [facility] [address] [place], [place], [id number] GAP Normal 5-15 [facility] Comment on above: Result Comment: @ PA [...] #### L 500.2500, L100.0100, L3200.1100, L500.3400 #### [facility] [address] [place], [place], [id number] GLU Normal 70-99 [facility] Comment on above: Result Comment: @ PA [...] #### L 500.2500, L100.0100, L3200.1100, L500.3400 #### [facility] [address] [place], [address] Potassium Normal 3.3-5.1 [facility] Comment on above: Result Comment: @ PA [...] #### L 500.2500, L100.0100, L3200.1100, L500.3400 #### [facility] [address] [place], [address] Basic Metabolic Profile (BMP) Normal 133-145 [facility] Comment on above: Result Comment: @ PA [...] #### L 500.2500, L100.0100, L3200.1100, L500.3400 #### [facility] [address] [place], [address] CBC W/Diff, Automatedon 11-0 Absolute Neut Normal 2.0-7.7 [facility] Comment on above: Result Comment: @ PA [...] #### L 500.2500, L100.0100, L3200.1100, L500.3400 #### [facility] [address] [place], [address] HCT Normal 37-47 [facility] Comment on above: Result Comment: @ PA [...] #### L 500.2500, L100.0100, L3200.1100, L500.3400 #### [facility] [address] [place], [address] HGB Normal 12.0-15.0 [facility] Comment on above: Result Comment: @ PA [...] #### L 500.2500, L100.0100, L3200.1100, L500.3400 #### [facility] [address] [place], [address] (257) MCH Normal 27.0-32.0 [facility] Comment on above: Result Comment: @ PA [...] #### L 500.2500, L100.0100, L3200.1100, L500.3400 #### [facility] [address] [place], [place], [id number] [facility] Normal 32-36 [facility] Comment on above: Result Comment: @ PA [...] #### L 500.2500, L100.0100, L3200.1100, L500.3400 #### [facility] [address] [place], [place], [address] [facility] Normal 81-99 [facility] Comment on above: Result Comment: @ PA [...] #### L 500.2500, L100.0100, L3200.1100, L500.3400 #### [facility] [address] [place], [address] (731) NEUT% Normal 47-70 [facility] Comment on above: Result Comment: @ PA [...] #### L 500.2500, L100.0100, L3200.1100, L500.3400 #### [facility] [address] [place], [place], [phone] (172) PLT Normal 150-450 [facility] Comment on above: Result Comment: @ PA [...] #### L 500.2500, L100.0100, L3200.1100, L500.3400 #### [facility] [address] [place], [address] (376) RBC Normal 4.2-5.4 [facility] Comment on above: Result Comment: @ PA [...] #### L 500.2500, L100.0100, L3200.1100, L500.3400 #### [facility] [address] [place], [place], [id number] RDW CV Normal 11.6-14.6 [facility] Comment on above: Result Comment: @ PA [...] #### L 500.2500, L100.0100, L3200.1100, L500.3400 #### [facility] [address] [place], [place], [id number] RDW SD Normal 35.1-43.9 [facility] Comment on above: Result Comment: @ PA [...] #### L 500.2500, L100.0100, L3200.1100, L500.3400 #### [facility] [address] [place], [place], [id number] WBC Normal 4.4-11.0 [facility] Comment on above: Result Comment: @ PA [...] #### L 500.2500, L100.0100, L3200.1100, L500.3400 #### [facility] [address] [place], [place], [address] Immunoglobulins G/A/M/Mann IMMUNOGLOB A QN Normal [facility] Comment on above: Order Comment: N Result [...] #### L 500.2500, L100.0100, L3200.1100, L500.3400 #### [facility] [address] [place], [address] IMMUNOGLOB E QN Normal [facility] Comment on above: Order Comment: N Result [...] #### L 500.2500, L100.0100, L3200.1100, L500.3400 #### [facility] [address] [place], [address] IMMUNOGLOB G [facility] Comment on above: Order Comment: N Result [...] #### L 500.2500, L100.0100, L3200.1100, L500.3400 #### [facility] [address] [place], [place], [id number] IMMUNOGLOB M [facility] Comment on above: Order Comment: N Result [...] #### L 500.2500, L100.0100, L3200.1100, L500.3400 #### [facility] [address] [place], [address] Liver Profileon 09-04-2025 ALB Normal 3.4-4.8 [facility] Comment on above: Result Comment: @ PA [...] #### L 500.2500, L100.0100, L3200.1100, L500.3400 #### [facility] [address] [place], [address] ALK PHOS Normal 35-104 [facility] Comment on above: Result Comment: @ PA [...] #### L 500.2500, L100.0100, L3200.1100, L500.3400 #### [facility] [address] [place], [place], [id number] ALT Normal <=34 [facility] Comment on above: Result Comment: @ PA [...] #### L 500.2500, L100.0100, L3200.1100, L500.3400 #### [facility] [address] [place], [place], [phone] (530) AST Normal <=31 [facility] Comment on above: Result Comment: @ PA [...] #### L 500.2500, L100.0100, L3200.1100, L500.3400 #### [facility] [address] [place], [address] (217) D BILI Normal 0.00-0.30 [facility] Comment on above: Result Comment: @ PA [...] #### L 500.2500, L100.0100, L3200.1100, L500.3400 #### [facility] [address] [place], [address] (656) T BILI Normal 0.00-1.30 [facility] Comment on above: Result Comment: @ PA [...] #### L 500.2500, L100.0100, L3200.1100, L500.3400 #### [facility] [address] [place], [place], [id number] T PROT Normal 5.9-8.4 [facility] Comment on above: Result Comment: @ PA TEINT UOSET AND WITH HOLDING SIMPLE THINGS WITH @REGISTRATION. ALINA HAS MANY NOTES. AFTER WORKING ON @ HER ORDER, [facility]. CALLED HER BACK. SHE WANTED [...] #### L 500.2500, L100.0100, L3200.1100, L500.3400 #### [facility] [address] [place], [place], [id number] XR HIP RIGHT WITH PELVIS WHE N PERFORMED 2 OR 3 VIEWSon 08-29-2025 XR HIP RIGHT WITH PELVIS WHEN PERFORMED 2 OR 3 VIEWS Interpreted By: Judith Cooley, STUDY: XR HIP RIGHT WITH PELVIS WHEN PERFORMED 2 OR 3 VIEWS INDICATION: Signs/Symptoms:HIP PAIN COMPARISON: XR HIP RIGHT WITH PELVIS WHEN PERFORMED 2 OR 3 VIEWS 10/19/2024. ACCESSION NUMBER(S): [id number] ORDERING CLINICIAN: NORMAN DURON FINDINGS: No acute fracture or malalignment. Patient is status post right total hip arthroplasty. No perihardware fractures or lucencies. Alignment is anatomic. Right hip joint space is well maintained. IMPRESSION: 1. Right total hip arthroplasty without hardware complication. MACRO: None. Signed by: Judith Cooley 08/30/2025 7:26 PM Dictation workstation: [id number] [facility] 2025 CNPN Telephone (OPHTSK) -- ANCA HSU ([id number]) 1960 F Date Time Provider Department 08/24/25 JEMMA MCKEE OPHJULIANK During your visit today, we recorded the following information about you: Herbetr Cook 2025 10:48 AM Addendum Requested prior authorization for cyclosporine 0.05% via phone call to [employer]. Reference # [id number] Per rep, turn around time is 24 [...] Fully Assessed Reason for Visit: Insurance Authorization [[id number]] Cmt: Restasis/Cyclosporine Prescriptions as of 2025 - [...] Status:Closed by HERBERT COOK on 08/24/25 Normal [facility] CULTURE, URINE, ROUTINEon Bacteria identified Cx Nom (U) SEE NOTE Abnormal [facility] Comment on above: Result Comment: CULTURE, URINE, ROUTINE Micro Number: [id number] Test Status: Final Specimen Source: Urine Specimen [...] #### 3 [phone], [phone] #### [facility] [place] [address] Instructor Warper: Tyler Mcrae MD NOTEon 08-20-2025 NOTE Normal [facility] Comment on above: Result Comment: This urine was analyzed for the presence of WBC, RBC, bacteria, casts, and other formed elements. Only those elements seen were reported. Performed By: #### 3 95, 7909 #### [facility] [place] [address] Instructor Warper: Tyler Mcrae MD URINALYSIS REFLEXon 08-20-20 25 Appearance (U) CLEAR Normal CLEAR [facility] Comment on above: Performed By: #### 3 95, 7909 #### [facility] [place] [address] Instructor Warper: Tyler Mcrae MD BACTERIA MODERATE Abnormal NONE SEEN [facility] Comment on above: Performed By: #### 3 95, 7909 #### [facility] [place] [address] Instructor Warper: Tyler Mcrae MD Bilirubin Ql (U) Negative Normal NEGATIVE [facility] Comment on above: Performed By: #### 3 95, 7909 #### [facility] [place] [address] Instructor Warper: Tyler Mcrae MD Color (U) YELLOW Normal YELLOW [facility] Comment on above: Performed By: #### 3 95, 7909 #### [facility] [place] [address] Instructor Warper: Tyler Mcrae MD Glucose Ql (U) Negative Normal NEGATIVE [facility] Comment on above: Performed By: #### 3 95, 7909 #### [facility] [place] [address] Instructor Warper: Tyler Mcrae MD HYALINE CAST 0-5 Abnormal NONE SEEN [facility] Comment on above: Performed By: #### 3 95, 7909 #### [facility] [place] [address] Instructor Warper: Tyler Mcrae MD Ketones Ql (U) Negative Normal NEGATIVE [facility] Comment on above: Performed By: #### 3 95, 7909 #### [facility] [place] [address] Instructor Warper: Tyler Mcrae MD Leukocyte esterase Test strip Ql (U) TRACE Abnormal NEGATIVE [facility] Comment on above: Performed By: #### 3 95, 7909 #### [facility] [place] [address] Instructor Warper: Tyler Mcrae MD Nitrite Ql (U) Positive Abnormal NEGATIVE [facility] Comment on above: Performed By: #### 3 95, 7909 #### [facility] [place] [address] Instructor Warper: Tyler Mcrae MD OCCULT BLOOD Negative Normal NEGATIVE [facility] Comment on above: Performed By: #### 3 95, 7909 #### [facility] [place] [address] Instructor Warper: Tyler Mcrae MD pH (U) 7.0 [pH] Normal 5.0-8.0 [facility] Comment on above: Performed By: #### 3 95, 7909 #### [facility] [place] [address] Instructor Warper: Tyler Mcrae MD Protein Ql (U) Negative Normal NEGATIVE [facility] Comment on above: Performed By: #### 3 95, 7909 #### [facility] of [address] [place] [address] Instructor Warper: Tyler Mcrae MD RBC NONE SEEN Normal < OR = 2 [facility] Comment on above: Performed By: #### 3 95, 7909 #### [facility] [place] [address] Instructor Warper: Tyler Mcrae MD Specific gravity (U) [Rel density] 1.012 Normal 1.001-1.035 [facility] Comment on above: Performed By: #### 3 95, 7909 #### [facility] [place] [address] Instructor Warper: Tyler Mcrae MD SQUAMOUS EPITHELIAL CELLS 0-5 Normal < OR = 5 [facility] Comment on above: Performed By: #### 3 95, 7909 #### [facility] [place] [address] Instructor Warper: Tyler Mcrae MD WBC 0-5 Normal < OR = 5 [facility] Comment on above: Performed By: #### 3 95, 7909 #### [facility] [place] [address] Instructor Warper: Tyler Mcrae MD CULTURE, URINE, ROUTINEon Bacteria identified Cx Nom (U) SEE NOTE Abnormal [facility] Comment on above: Result Comment: CULTURE, URINE, ROUTINE Micro Number: [id number] Test Status: Final Specimen Source: Urine, clean [...] #### 3 95, 7909 #### [facility] [place] [address] Instructor Warper: Tyler Mcrae MD NOTEon 07-29-2025 NOTE Normal [facility] Comment on above: Result Comment: This urine was analyzed for the presence of WBC, RBC, bacteria, casts, and other formed elements. Only those elements seen were reported. Performed By: #### 3 95, 7909 #### [facility] [place] [address] Instructor Warper: Tyler Mcrae MD URINALYSIS REFLEXon 07-29-20 25 Appearance (U) CLOUDY Abnormal CLEAR [facility] Comment on above: Performed By: #### 3 95, 7909 #### [facility] [place] [address] Instructor Warper: Tyler Mcrae MD BACTERIA MANY Abnormal NONE SEEN [facility] Comment on above: Performed By: #### 3 95, 7909 #### [facility] [place] [address] Instructor Warper: Tyler Mcrae MD Bilirubin Ql (U) Negative Normal NEGATIVE [facility] Comment on above: Performed By: #### 3 95, 7909 #### [facility] [address] Instructor Warper: Tyler Mcrae MD Color (U) YELLOW Normal YELLOW [facility] Comment on above: Performed By: #### 3 95, 7909 #### [facility] [place] [address] Instructor Warper: Tyler Mcrae MD Glucose Ql (U) Negative Normal NEGATIVE [facility] Comment on above: Performed By: #### 3 95, 7909 #### [facility] [place] [address] Instructor Warper: Tyler Mcrae MD HYALINE CAST 0-5 Abnormal NONE SEEN [facility] Comment on above: Performed By: #### 3 95, 7909 #### [facility] [place] [address] Instructor Warper: Tyler Mcrae MD Ketones Ql (U) Negative Normal NEGATIVE [facility] Comment on above: Performed By: #### 3 95, 7909 #### [facility] [place] [address] Instructor Warper: Tyler Mcrae MD Leukocyte esterase Test strip Ql (U) 3+ Abnormal NEGATIVE [facility] Comment on above: Performed By: #### 3 95, 7909 #### [facility] [place] [address] Instructor Warper: Tyler Mcrae MD Nitrite Ql (U) Negative Normal NEGATIVE [facility] Comment on above: Performed By: #### 3 95, 7909 #### [facility] [place] [address] Instructor Warper: Tyler Mcrae MD OCCULT BLOOD Negative Normal NEGATIVE [facility] Comment on above: Performed By: #### 3 95, 7909 #### [facility] [place] [address] Instructor Warper: Tyler Mcrae MD pH (U) 7.5 [pH] Normal 5.0-8.0 [facility] Comment on above: Performed By: #### 3 95, 7909 #### [facility] [place] [address] Instructor Warper: Tyler Mcrae MD Protein Ql (U) 1+ Abnormal NEGATIVE [facility] Comment on above: Performed By: #### 3 95, 7909 #### [facility] [place] [address] Instructor Warper: Tyler Mcrae MD RBC 0-2 Normal < OR = 2 [facility] Comment on above: Performed By: #### 3 95, 7909 #### [facility] [place] [address] Instructor Warper: Tyler Mcrae MD Specific gravity (U) [Rel density] 1.016 Normal 1.001-1.035 [facility] Comment on above: Performed By: #### 3 95, 7909 #### [facility] [place] [address] Instructor Warper: Tyler Mcrae MD SQUAMOUS EPITHELIAL CELLS 0-5 Normal < OR = 5 [facility] Comment on above: Performed By: #### 3 95, 7909 #### [facility] [place] [address] Instructor Warper: Tyler Mcrae MD TRIPLE PHOSPHATE CRYSTALS MANY Abnormal NONE OR FEW [facility] Comment on above: Performed By: #### 3 95, 7909 #### [facility] [place] [address] Instructor Warper: Tyler Mcrae MD WBC (U) [#/Vol] /uL Abnormal < OR = 5 [facility] Comment on above: Performed By: #### 3 95, 7909 #### [facility] [place] [address] Instructor Warper: Tyler Mcrae MD CULTURE, URINE, ROUTINEon CULTURE, URINE, ROUTINE SEE NOTE Abnormal [facility] Comment on above: Result Comment: CULTURE, URINE, ROUTINE Micro Number: [id number] Test Status: Final Specimen Source: Not given [...] cephalexin and loracarbef. Performed By: #### 3 , 7933 #### [facility] [place] [address] Instructor Warper: Tyler Mcrae MD C-REACTIVE PROTEINon 025 CRP [Mass/Vol] mg/L Normal <8.0 [facility] Comment on above: Performed By: #### 9 7859, 983, 2477 #### [facility] [address] Instructor Warper: Tyler Mcrae MD CBC (INCLUDES DIFF/PLT)on Basophils (Bld) [#/Vol] 0.049 10*3/uL Normal 0-200 [facility] Comment on above: Performed By: #### 9 3245, 809, 6399 #### [facility] of [address], [address] [place] [address] Instructor Warper: Tyler Mcrae MD Basophils/100 WBC (Bld) 0.9 % Normal [facility] Comment on above: Performed By: #### 9 2665, 809, 6399 #### [facility] of [address], [address] [place] [address] Instructor Warper: Tyler Mcrae MD Eosinophils (Bld) [#/Vol] 0.103 10*3/uL Normal 15-500 [facility] Comment on above: Performed By: #### 9 2665, 809, 6399 #### [facility] of [address], [address] [place] [address] Instructor Warper: Tyler Mcrae MD Eosinophils/100 WBC (Bld) 1.9 % Normal [facility] Comment on above: Performed By: #### 9 2665, 809, 6399 #### [facility] [place] [address] Instructor Warper: Tyler Mcrae MD Erythrocyte distribution width (RBC) [Ratio] 12.1 % Normal 11.0-15.0 [facility] Comment on above: Performed By: #### 9 6645, 809, 6399 #### [facility] [place] [address] Instructor Warper: Tyler Mcrae MD Hematocrit (Bld) [Volume fraction] 34.8 % Low 35.0-45.0 [facility] Comment on above: Performed By: #### 9 2665, 809, 6399 #### [facility] [place] [address] Instructor Warper: Tyler Mcrae MD Hemoglobin (Bld) [Mass/Vol] 11.6 g/dL Low 11.7-15.5 [facility] Comment on above: Performed By: #### 9 1615, 809, 6399 #### [facility] of [address] [place] [address] Instructor Warper: Tyler Mcrae MD Lymphocytes (Bld) [#/Vol] 1.723 10*3/uL Normal 850-3900 [facility] Comment on above: Performed By: #### 9 007, 809, 6399 #### [facility] [address], [address] [place] [address] Instructor Warper: Tyler Mcrae MD Lymphocytes/100 WBC (Bld) 31.9 % Normal [facility] Comment on above: Performed By: #### 9 855, 809, 6399 #### [facility] [place] [address] Instructor Warper: Tyler Mcrae MD MCH (RBC) [Entitic mass] 31.7 pg Normal 27.0-33.0 [facility] Comment on above: Performed By: #### 9 765, 809, 6399 #### [facility] [place] [address] Instructor Warper: Tyler Mcrae MD MCHC (RBC) [Mass/Vol] 33.3 [...] patient's clinical condition. Performed By: #### 9 1545, 809, 6399 #### [facility] [place] [address] Instructor Warper: Tyler Mcrae MD MCV (RBC) [Entitic vol] 95.1 fL Normal 80.0-100.0 [facility] Comment on above: Performed By: #### 9 530, 809, 6399 #### [facility] [place] [address] Instructor Warper: Tyler Mcrae MD Monocytes (Bld) [#/Vol] 0.551 10*3/uL Normal 200-950 [facility] Comment on above: Performed By: #### 9 2665, 809, 6399 #### [facility] [place] [address] Instructor Warper: Tyler Mcrae MD Monocytes/100 WBC (Bld) 10.2 % Normal [facility] Comment on above: Performed By: #### 9 5, 809, 6399 #### [facility] [place] [address] Instructor Warper: Tyler Mcrae MD Neutrophils (Bld) [#/Vol] 2.975 10*3/uL Normal 4209-9487 [facility] Comment on above: Performed By: #### 9 2665, 809, 6399 #### [facility] [place] [address] Instructor Warper: Tyler Mcrae MD Neutrophils/100 WBC (Bld) 55.1 % Normal [facility] Comment on above: Performed By: #### 9 2665, 809, 6399 #### [facility] [place] [address] Instructor Warper: Tyler Mcrae MD Platelet mean volume (Bld) [Entitic vol] 9.8 fL Normal 7.5-12.5 [facility] Comment on above: Performed By: #### 9 2665, 809, 6399 #### [facility] [place] [address] Instructor Warper: Tyler Mcrae MD Platelets (Bld) [#/Vol] 288 10*3/uL Normal 140-400 [facility] Comment on above: Performed By: #### 9 2665, 809, 6399 #### [facility] [place] [address] Instructor Warper: Tyler Mcrae MD RBC (Bld) [#/Vol] 3.66 10*6/uL Low 3.80-5.10 [facility] Comment on above: Performed By: #### 9 2665, 809, 6399 #### [facility] [place] [address] Instructor Warper: Tyler Mcrae MD WBC (Bld) [#/Vol] 5.4 10*3/uL Normal 3.8-10.8 [facility] Comment on above: Performed By: #### 9 2665, 809, 6399 #### [facility] [place] [address] Instructor Warper: Tyler Mcrae MD COMPREHENSIVE METABOLIC PANE L W/ANION GAPon 07-03-2025 Albumin [Mass/Vol] 4.5 g/dL Normal 3.6-5.1 [facility] Comment on above: Performed By: #### 9 2665, 809, 6399 #### [facility] [place] [address] Instructor Warper: Tyler Mcrae MD ALP [Catalytic activity/Vol] 67 U/L Normal 37-153 [facility] Comment on above: Performed By: #### 9 2665, 809, 6399 #### [facility] [place] [address] Instructor Warper: Tyler Mcrae MD ALT [Catalytic activity/Vol] 38 U/L High 6-29 [facility] Comment on above: Performed By: #### 9 2665, 809, 6399 #### [facility] [place] [address] Instructor Warper: Tyler Mcrae MD AST [Catalytic activity/Vol] 37 U/L High 10-35 [facility] Comment on above: Performed By: #### 9 2665, 809, 6399 #### [facility] [place] [address] Instructor Warper: Tyler Mcrae MD Bilirubin [Mass/Vol] 0.3 mg/dL Normal 0.2-1.2 [facility] Comment on above: Performed By: #### 9 2665, 809, 6399 #### [facility] of [address], [address] [place] [address] Instructor Warper: Tyler Mcare MD Calcium [Mass/Vol] 9.1 mg/dL Normal 8.6-10.4 [facility] Comment on above: Performed By: #### 9 756, 809, 6399 #### [facility] of [address], [address] [place] [address] Instructor Warper: Tyler Mcrae MD Chloride [Moles/Vol] 108 mmol/L Normal 98-110 [facility] Comment on above: Performed By: #### 9 2664, 809, 6399 #### [facility] [place] [address] Instructor Warper: Tyler Mcrae MD CO2 [Moles/Vol] 24 mmol/L Normal 20-32 [facility] Comment on above: Performed By: #### 9 720, 809, 6399 #### [facility] [place] [address] Instructor Warper: Tyler Mcrae MD Creatinine [Mass/Vol] 0.51 mg/dL Normal 0.50-1.05 [facility] Comment on above: Performed By: #### 9 999, 809, 6399 #### [facility] [place] [address] Instructor Warper: Tyler Mcrae MD ELECTROLYTE BALANCE 12 mmol/L (calc) Normal 7-17 [facility] Comment on above: Performed By: #### 9 967, 809, 6399 #### [facility] [place] [address] Instructor Warper: Tyler Mcrae MD GFR/1.73 sq M.predicted among non-blacks MDRD (S/P/Bld) [Vol rate/Area] 105 mL/min/{1.73_m2} Normal > OR = 60 [facility] Comment on above: Performed By: #### 9 706, 809, 6399 #### [facility] of [address] [place] [address] Instructor Warper: Tyler Mcrae MD Glucose [Mass/Vol] 75 mg/dL Normal 65-99 [facility] Comment on above: Result Comment: Fasting reference interval Performed By: #### 9 1385, 809, 6399 #### [facility] of [address], [address] [place] [address] Instructor Warper: Tyler Mcrae MD Potassium [Moles/Vol] 4.0 mmol/L Normal 3.5-5.3 [facility] Comment on above: Performed By: #### 9 2075, 809, 6399 #### [facility] of [address], [address] [place] [address] Instructor Warper: Tyler Mcrae MD Protein [Mass/Vol] 6.5 g/dL Normal 6.1-8.1 [facility] Comment on above: Performed By: #### 9 5935, 809, 6399 #### [facility] of [address], [address] [place] [address] Instructor Warper: Tyler Mcrae MD Sodium [Moles/Vol] 144 mmol/L Normal 135-146 [facility] Comment on above: Performed By: #### 9 0945, 809, 6399 #### [facility] of [address], [address] [place] [address] Instructor Warper: Tyler Mcrae MD Urea nitrogen [Mass/Vol] 12 mg/dL Normal 7-25 [facility] Comment on above: Performed By: #### 9 5205, 809, 6399 #### [facility] of [address], [address] [place] [address] Instructor Warper: Tyler Mcrae MD SED RATE BY ADRIANA Sharp 07-03-2025 SED RATE BY ADRIANA HELMS 2 mm/h Normal < OR = 30 [facility] Comment on above: Performed By: #### 9 3125, 809, 6399 #### [facility] of [address], [address] [place] [address] Instructor Warper: Tyler Mcrae MD [place] GI ESOPHAGRAMon [place] GI ESOPHAGRAM Interpreted By: Christo Castaneda, and Marco Solorzano STUDY: [place] MODIFIED BARIUM SWALLOW STUDY; [place] GI ESOPHAGRAM;; 06/22/2025 9:15 am INDICATION: Signs/Symptoms:see dx. ,R13.10 Dysphagia, unspecified,K59.00 Constipation, unspecified,R10.13 Epigastric pain,M62.89 Other specified disorders of muscle COMPARISON: None. ACCESSION NUMBER(S): [id number]; [id number] ORDERING CLINICIAN: GABINO LUIS TECHNIQUE: Modified Barium [...] larynx, hypopharynx and cervical esophagus were evaluated. CONSTRUCTION INSPECTOR: Jeanine Lara [facility]-CONSTRUCTION INSPECTOR Contact info: Available via secure [employer] SPEECH FINDINGS: Reason for Referral: Pt reports [...] - Chew food thoroughly prior to swallowing CONSTRUCTION INSPECTOR PLAN: Skilled CONSTRUCTION INSPECTOR Services: No further skilled CONSTRUCTION INSPECTOR intervention is warranted for dysphagia at this [...] ESOPHAGEAL PHASE: Esophageal clearance - Esophageal retention CONSTRUCTION INSPECTOR Impressions with Severity Rating: Pt presents with [...] that first trial is proven to be non-videotape sales representative of true swallow function). Penetrated contrast cleared with a spontaneous re-swallow. No further penetration was observed, and no aspiration was visualized during study. No significant pharyngeal residuals wer (more content not included)... [facility] Comment on above: Order Comment: SCHED ULED [...] disorders of muscle COMPARISON: None. ACCESSION NUMBER(S): [id number]; [id number] ORDERING CLINICIAN: GABINO LUIS TECHNIQUE: Modified Barium [...] larynx, hypopharynx and cervical esophagus were evaluated. CONSTRUCTION INSPECTOR: Jeanine Lara, [facility]-CONSTRUCTION INSPECTOR Contact info: Available via secure [employer] SPEECH FINDINGS: Reason for Referral: Pt reports [...] - Chew food thoroughly prior to swallowing CONSTRUCTION INSPECTOR PLAN: Skilled CONSTRUCTION INSPECTOR Services: No further skilled CONSTRUCTION INSPECTOR intervention is warranted for dysphagia at this [...] ESOPHAGEAL PHASE: Esophageal clearance - Esophageal retention CONSTRUCTION INSPECTOR Impressions with Severity Rating: Pt presents with [...] that first trial is proven to be non-videotape sales representative of true swallow function). Penetrated contrast cleared with a spontaneous re-swallow. No further penetration was observed, and no aspiration was visualized during study. No significant pharyngeal residuals wer (more content not included)... Normal [facility] CNCOon 06-20-2025 CNCO Letter Text Normal [facility] 36on 06-15-2025 36 Rx loaded Normal [facility] CNOVon 06-15-2025 CNOV Office Visit (AGPOB3 ) -- ANCA HSU ([id number]) 1960 F Date Time Provider Department 06/15/25 [...] information in this document, created by the biomedical engineering director for me, accurately reflects the services I [...] as need (more content not included)... Normal [facility] CNOVon 06-08-2025 CNOV Office Visit (WALKWA ) -- ANCA HSU ([id number]) 1960 F Date Time Provider Department 06/08/25 2:00 PM CORDELL HERNANDEZ During your visit today, we recorded the following information about you: Temperature Pulse Respiration Blood pressure 98.2 degrees 76/minute 16/minute 106/73 Cordell Hernandez APRN.CNP 06/08/2025 2:52 PM Signed [facility] Subjective Anca Hsu is [...] bladder sling, rectocele repair ALLERGIES Demoral [Meperidine], Dyer Nut, Bupivacaine Hcl, Adhesive Tape (Rosins), Blue Dye, Carafate [Sucralfate], Chlorhexidine, Latex, Lidocaine, Marcaine [Bupivacaine], Moxifloxacin, Novacaine [Procaine], Sulfa (Sulfonamide Antibiotics), Tree Nuts, and [place] MEDICATIONS Olopatadine (PATADAY ONCE DAILY RELIEF) 0.2 [...] , no more than 4 per week vmlfqzez-chigxsrss-opaxkfw rtisone (CORTISPORIN) 3.5-10,000-1 mg/mL-unit/mL-% otic suspension Use [...] Diabetes Maternal (more content not included)... Normal [facility] CNCOon 06-06-2025 CNCO Letter Text Normal [facility] 36on 05-23-2025 36 Attempted to call tabitha [...] be safe for her to do. Normal [facility] 36on 05-22-2025 36 S: Patient spoke giuseppe oliva [facility] nurse regarding dropping blood sugar B: Onset [...] gets angry. Has appointment in July with agricultural specialist. Blood sugar is now 101. She is [...] unknown Protocols used: Diabetes - [facility] 05-22-2025 CNOV Office Visit (AGPOB3 ) -- ANCA HSU ([id number]) 1960 F Date Time Provider Department 05/22/25 [...] information in this document, created by the biomedical engineering director for me, accurately reflects the services I [...] three times (more content not included)... Normal [facility] CNCOon 05-21-2025 CNCO Letter Text Normal [facility] MUMPS ANTIBODY, IGGon 2024 MUMPS IGG ANTIBODY 2.3 Adriana Normal [facility] Comment on above: Result Comment: RAYMOND [...] antibody concentrations. Performed By: #### L [id number], [id number] ####Instructor Warper: LAINA MIRZA ([id number])[facility] ([facility])[address] [place] [address] RUBELLA ANTIBODY, IGGon RUBELLA IMMUNE STATUS (LIAISON XL) 0.951 Normal >=0.900 [facility] Comment on above: Result Comment: RAYMOND Mcleod COMMENTS: Interpretation Table: <0.900 Antibody NOT Detected >=0.900 AND <1.000 Antibody Equivocal >=1.000 Antibody Detected Performed By: #### L AB496 ####Instructor Warper: LAINA MIRZA ([id number])[facility])[address] [place] [address] RUBEOLA ANTIBODY IGGon 05-08 RUBEOLA IGG ANTIBODY 2.8 Adriana Normal [facility] Comment on above: Result Comment: RAYMOND [...] antibody concentrations. Performed By: #### L AB657, [id number] ####Instructor Warper: LAINA MIRZA ([id number])[facility])[address] [place] [address] 29on 05-07-2025 29 Addended by: JEANINE WAKEFIELD on: 05/08/2025 12:56 PM Modules accepted: Orders Normal [facility] 04-27-2025 [facility] Tele[facility] (AGPOB3) -- ANCA HSU ([id number]) 1960 F Date Time Provider Department 04/27/25 [...] other than patient: pt Best contact number: [phone] Thank you, Toyin [place] April 27, 2025 [...] Encounter Status:Closed by EB[facility]B3 ) -- ANCA HSU ([id number]) 1960 F Date Time Provider Department 04/20/25 [...] information in this document, created by the biomedical engineering director for me, accurately reflects the services I [...] be inappropriate. 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 Normal [facility] Telephone (AGPOB3) -- ANCA HSU ([id number]) 1960 F Date Time Provider Department 04/13/25 [...] Encounter Status:Closed by EBONIE ALFONSO on 04/13/25 [facility] ANES POSTPROC EVALon 025 ANES POSTPROC EVAL HNO ID: [id number] Author: AMILCAR GRACE MD Service: Anesthesiology Author Type: Anesthesiologist Type: Anesthesia Postprocedure Evaluation Filed: 04/09/2025 13:27 Note Text: POST ANESTHESIA EVALUATION NOTE : 1960 Procedure Summary Date: 04/09/25 Room / Location: [address] Anesthesia Start: 829 Anesthesia Stop: 1002 [...] April 09, 2025 TIME: 1:27 PM CSN: [id number] Normal [facility] ANES PRE-OPon 04-09-2025 ANES PRE-OP HNO ID: [id number] Author: TERENCE LOMELI MD Service: Anesthesiology Author Type: Anesthesiologist Type: Anesthesia Preprocedure Evaluation Filed: 04/09/2025 07:48 Note Text: ANESTHESIOLOGY DAY OF SURGERY NOTE : 1960 Procedure Information Date/Time: 04/09/25829 Procedure: ARTHROPLASTY CARPOMETACARPAL JOINTS Left Thumb [facility] Arthrop[lasty (Left: Finger thumb) Location: [facility] Surgeons: Pilo Ludwig Jr., MD Estimated body [...] and consent discussed: yes. Patient / Responsible Democrat agrees to proceed: yes Patient / Surrogate [...] obtained within 48 hours of Surgery/Procedure. SIGNATURE: Terence Lomeli MD PATIENT NAME: Anca Hsu DATE: April 09, 2025 TIME: 7:46 AM CSN: [id number] [facility] HISTORY PHYSICALon HISTORY PHYSICAL HNO ID: [id number] Author: JE RENO APRN.MANAGER WILLOW Service: ? Author Type: Nurse Practitioner Type: [...] Multivitamin capsule Ta (more content not included)... [facility] NURSING PROGon 04-09-2025 NURSING PROG HNO ID: [id number] Author: FABIOLA ROMEO RN Service: ? Author [...] Willem aware will let Dr Ludwig know. [facility] OPERATIVE NOon 04-09-2025 OPERATIVE NO HNO ID: [id number] Author: PILO LUDWIG JR, MD Service: Hand Surgery Author Type: Physician Type: Operative Report Filed: 04/09/2025 10:02 Note Text: HAND SURGERY OPERATIVE NOTE LOG ID: [id number] Surgery/Procedure Date: 04/09/2025 Incision/Procedure Start Time: 8:47 AM Incision Close/Procedure End Time: 9:50 AM Surgeon(s)/Proceduralist(s ) and Web Manager(s): Surgeons and Role: * Pilo Ludwig Jr., [...] CLINICAL SCENARIO: This is a 64 year olduhw-uggt-oyl adult, who presented to my office with [...] I reapproximated the volar capsule with multiple bfsujr-qj-hgcxk sutures of 3-0 Ethibond. The thenar musculature was repaired with multiple yfjnmq-er-aaexz sutures of 4-0 Vicryl. Skin was closed [...] questions, or (more content not included)... Normal [facility] Office Visiton 04-02-2025 Follow-up visit [id number] [place] Hsu 1960 [facility] Provider Department Wing 04/02/2025 [id number] ALEJANDRO [facility] Family History Problem Relation Age of [...] Alive Daughter Son Cousin Other Level of Service:76050 MI OFFICE/OUTPATIENT ESTABLISHED LOW MDM 20 MIN Reason for Visit and Comments: Follow-up [353575] - Med check pt refused weight Normal [facility] Progress Noteon 04-02-2025 Progress Note [facility] - [address] [facility] [address] Visit type: Established Patient Reason [...] Lips and tongue swelling and eye lid Dyer Hives, Itching, Shortness of breath and Dermatitis Other reaction(s): Dermatitis, shortness of breath Dyer Nuts Shortness of breath Bupivacaine Other reaction(s): [...] evening. Col (more content not included)... Normal [facility] C-REACTIVE PROTEINon 025 CRP [Mass/Vol] mg/L Normal <8.0 [facility] Comment on above: Performed By: #### 3 95, 7909 #### [facility] [address], [address] [place] [address] Instructor Warper: Tyler Mcrae MD CBC (INCLUDES DIFF/PLT)on Basophils (Bld) [#/Vol] 0.053 10*3/uL Normal 0-200 [facility] Comment on above: Performed By: #### 3 95, 7909 #### [facility] [place] [address] Instructor Warper: Tyler Mcrae MD Basophils/100 WBC (Bld) 0.8 % Normal [facility] Comment on above: Performed By: #### 3 95, 7909 #### [facility] [place] [address] Instructor Warper: Tyler Mcrae MD Eosinophils (Bld) [#/Vol] 0.099 10*3/uL Normal 15-500 [facility] Comment on above: Performed By: #### 3 95, 7909 #### [facility] [place] [address] Instructor Warper: Tyler Mcrae MD Eosinophils/100 WBC (Bld) 1.5 % Normal [facility] Comment on above: Performed By: #### 3 95, 7909 #### [facility] of [place] [address] Instructor Warper: Tyler Mcrae MD Erythrocyte distribution width (RBC) [Ratio] 12.4 % Normal 11.0-15.0 [facility] Comment on above: Performed By: #### 3 95, 7909 #### [facility] of [place] [address] Instructor Warper: Tyler Mcrae MD Hematocrit (Bld) [Volume fraction] 39.7 % Normal 35.0-45.0 [facility] Comment on above: Performed By: #### 3 95, 7909 #### [facility] of [place] [address] Instructor Warper: Tyler Mcrae MD Hemoglobin (Bld) [Mass/Vol] 13.1 g/dL Normal 11.7-15.5 [facility] Comment on above: Performed By: #### 3 95, 7909 #### [facility] of [place] [address] Instructor Warper: Tyler Mcrae MD Lymphocytes (Bld) [#/Vol] 1.327 10*3/uL Normal 850-3900 [facility] Comment on above: Performed By: #### 3 95, 7909 #### [facility] of [place] [address] Instructor Warper: Tyler Mcrae MD Lymphocytes/100 WBC (Bld) 20.1 % Normal [facility] Comment on above: Performed By: #### 3 95, 7909 #### [facility] of [place] [address] Instructor Warper: Tyler Mcrae MD MCH (RBC) [Entitic mass] 32.0 pg Normal 27.0-33.0 [facility] Comment on above: Performed By: #### 3 , 7909 #### [facility] of [place] [address] Instructor Warper: Tyler Mcrae MD MCHC (RBC) [Mass/Vol] 33.0 [...] 3 , 7909 #### [facility] of [place] [address] Instructor Warper: Tyler Mcrae MD MCV (RBC) [Entitic vol] 97.1 fL Normal 80.0-100.0 [facility] Comment on above: Performed By: #### 3 , 7909 #### [facility] of [place] [address] Instructor Warper: Tyler Mcrae MD Monocytes (Bld) [#/Vol] 0.488 10*3/uL Normal 200-950 [facility] Comment on above: Performed By: #### 3 95, 7909 #### [facility] of [place] [address] Instructor Warper: Tyler Mcrae MD Monocytes/100 WBC (Bld) 7.4 % Normal [facility] Comment on above: Performed By: #### 3 , 7909 #### [facility] of [place] [address] Instructor Warper: Tyler Mcrae MD Neutrophils (Bld) [#/Vol] 4.633 10*3/uL Normal 2235-8025 [facility] Comment on above: Performed By: #### 3 , 7909 #### [facility] of [place] [address] Instructor Warper: Tyler Mcrae MD Neutrophils/100 WBC (Bld) 70.2 % Normal [facility] Comment on above: Performed By: #### 3 95, 7909 #### [facility] of [place] [address] Instructor Warper: Tyler Mcrae MD Platelet mean volume (Bld) [Entitic vol] 10.3 fL Normal 7.5-12.5 [facility] Comment on above: Performed By: #### 3 95, 7909 #### [facility] of [place] [address] Instructor Warper: Tyler Mcrae MD Platelets (Bld) [#/Vol] 306 10*3/uL Normal 140-400 [facility] Comment on above: Performed By: #### 3 95, 7909 #### [facility] of [place] [address] Instructor Warper: Tyler Mcrae MD RBC (Bld) [#/Vol] 4.09 10*6/uL Normal 3.80-5.10 [facility] Comment on above: Performed By: #### 3 95, 7909 #### [facility] of [place] [address] Instructor Warper: Tyler Mcrae MD WBC (Bld) [#/Vol] 6.6 10*3/uL Normal 3.8-10.8 [facility] Comment on above: Performed By: #### 3 95, 7909 #### [facility] of [place] [address] Instructor Warper: Tyler Mcrae MD COMPREHENSIVE METABOLIC PANE L W/ANION GAPon 03-29-2025 Albumin [Mass/Vol] 4.6 g/dL Normal 3.6-5.1 [facility] Comment on above: Order Comment: FASTI NG:UNKNOWNFASTING: UNKNOWN Performed By: #### 3 95, 7909 #### [facility] of [place] [address] Instructor Warper: Tyler Mcrae MD ALP [Catalytic activity/Vol] 81 U/L Normal 37-153 [facility] Comment on above: Order Comment: FASTI NG:UNKNOWNFASTING: UNKNOWN Performed By: #### 3 95, 7909 #### [facility] [place] [address] Instructor Warper: Tyler Mcrae MD ALT [Catalytic activity/Vol] 36 U/L High 6-29 [facility] Comment on above: Order Comment: FASTI NG:UNKNOWNFASTING: UNKNOWN Performed By: #### 3 95, 7909 #### [facility] [place] [address] Instructor Warper: Tyler Mcrae MD AST [Catalytic activity/Vol] 34 U/L Normal 10-35 [facility] Comment on above: Order Comment: FASTI NG:UNKNOWNFASTING: UNKNOWN Performed By: #### 3 95, 7909 #### [facility] [place] [address] Instructor Warper: Tyler Mcrae MD Bilirubin [Mass/Vol] 0.3 mg/dL Normal 0.2-1.2 [facility] Comment on above: Order Comment: FASTI NG:UNKNOWNFASTING: UNKNOWN Performed By: #### 3 95, 7909 #### [facility] [place] [address] Instructor Warper: Tyler Mcrae MD Calcium [Mass/Vol] 9.7 mg/dL Normal 8.6-10.4 [facility] Comment on above: Order Comment: FASTI NG:UNKNOWNFASTING: UNKNOWN Performed By: #### 3 95, 7909 #### [facility] [place] [address] Instructor Warper: Tyler Mcrae MD Chloride [Moles/Vol] 106 mmol/L Normal 98-110 [facility] Comment on above: Order Comment: FASTI NG:UNKNOWNFASTING: UNKNOWN Performed By: #### 3 95, 7909 #### [facility] [place] [address] Instructor Warper: Tyler Mcrae MD CO2 [Moles/Vol] 24 mmol/L Normal 20-32 [facility] Comment on above: Order Comment: FASTI NG:UNKNOWNFASTING: UNKNOWN Performed By: #### 3 95, 7909 #### [facility] [place] [address] Instructor Warper: Tyler Mcrae MD Creatinine [Mass/Vol] 0.56 mg/dL Normal 0.50-1.05 [facility] Comment on above: Order Comment: FASTI NG:UNKNOWNFASTING: UNKNOWN Performed By: #### 3 95, 7909 #### [facility] [place] [address] Instructor Warper: Tyler Mcrae MD ELECTROLYTE BALANCE 11 mmol/L (calc) Normal 7-17 [facility] Comment on above: Order Comment: FASTI NG:UNKNOWNFASTING: UNKNOWN Performed By: #### 3 95, 7909 #### [facility] [place] [address] Instructor Warper: Tyler Mcrae MD GFR/1.73 sq M.predicted among non-blacks MDRD (S/P/Bld) [Vol rate/Area] 102 mL/min/{1.73_m2} Normal > OR = 60 [facility] Comment on above: Order Comment: FASTI NG:UNKNOWNFASTING: UNKNOWN Performed By: #### 3 95, 7909 #### [facility] [place] [address] Instructor Warper: Tyler Mcrae MD Glucose [Mass/Vol] 69 mg/dL Normal 65-99 [facility] Comment on above: Order Comment: FASTI NG:UNKNOWNFASTING: UNKNOWN Result Comment: Fasting reference interval Performed By: #### 3 95, 7909 #### [facility] [place] [address] Instructor Warper: Tyler Mcrae MD Potassium [Moles/Vol] 3.8 mmol/L Normal 3.5-5.3 [facility] Comment on above: Order Comment: FASTI NG:UNKNOWNFASTING: UNKNOWN Performed By: #### 3 95, 7909 #### [facility] [place] [address] Instructor Warper: Tyler Mcrae MD Protein [Mass/Vol] 7.0 g/dL Normal 6.1-8.1 [facility] Comment on above: Order Comment: FASTI NG:UNKNOWNFASTING: UNKNOWN Performed By: #### 3 95, 7909 #### [facility] [place] [address] Instructor Warper: Tyler Mcrae MD Sodium [Moles/Vol] 141 mmol/L Normal 135-146 [facility] Comment on above: Order Comment: FASTI NG:UNKNOWNFASTING: UNKNOWN Performed By: #### 3 95, 7909 #### [facility] [place] [address] Instructor Warper: Tyler Mcrae MD Urea nitrogen [Mass/Vol] 11 mg/dL Normal 7-25 [facility] Comment on above: Order Comment: FASTI NG:UNKNOWNFASTING: UNKNOWN Performed By: #### 3 95, 7909 #### [facility] [place] [address] Instructor Warper: Tyler Mcrae MD SED RATE BY MODIFIED TIANNA Sharp 03-29-2025 SED RATE BY MODIFIED [facility] Normal [facility] Comment on above: Result Comment: UNAB LE TO REPORT Initial testing necessitated a repeat, but there was insufficient sample to perform. Performed By: #### 3 95, 7909 #### [facility] [place] [address] Instructor Warper: Tyler Dye 03-13-2025 CNPN Telephone (AGPOB1) -- ANCA HSU ([id number]) 1960 F Date Time Provider Department 03/13/25 [...] Encounter Status:Closed by JACQUE EVERETT on 03/13/25 [facility] 03-08-2025 36 A letter was mailed to last known address. [facility] 03-07-2025 36 Called patient to ad vise but patients voicemail not set up. Snaapiq message sent to patient. [facility] 03-06-2025 36 S: Patient spoke wit [facility] nurse regarding vomiting. B: Onset of symptoms/concern [...] lasted less than 24 hours.) Protocols used: [facility] 03-01-2025 29 Addended by: KIERAN TORREZ on: 03/01/2025 10:16 AM Modules accepted: Orders Normal [facility] 03-01-2025 36 Orders cancelled Normal [facility] 36 Since patient refusi ng to sched MRI can orders be closed [facility] 3602-27-2025 36 Name of caller: Jones lucas Contact phone number: [phone] Relationship to Patient: [facility] Radiology Provider: Kory Alejandro DO Practice: [facility] Chief Complaint/Reason for Call: Corina with [facility] reports that pt is no longer wanting to have her MR cervical spine wo contrast (Order [id number]) Done at [facility]. Best time of day caller can be reached: any Patient advised that office/PCP has 24-48 business hours to return their call: n/a Normal [facility] BI MAMMO BILATERAL SCREENING TOMOSYNTHESISon 02-22-2025 BI MAMMO BILATERAL SCREENING TOMOSYNTHESIS Interpreted By: Saba Medina, STUDY: BI MAMMO BILATERAL SCREENING TOMOSYNTHESIS; 02/22/2025 1:50 pm ACCESSION NUMBER(S): [id number] ORDERING CLINICIAN: SELF MAMMOGRAM INDICATION: Screening. Patient [...] any future breast imaging appointments, please call [phone] ([phone]). MACRO: None Signed by: Saba Medina 02/22/2025 2:24 PM Dictation workstation: [id number] [facility] 02-21-2025 36 Faxed orders with au th and clinicals to [facility]'s MRI dept. They will contact pt to sched test. Normal [facility] 36on 02-20-2025 36 Updated orders for MRI-Cervical pended for dx and signature. [facility] We fax orders and they will contact pt to sched. Sedation MRIs are only done on Wed Normal [facility] [id number] 02-16-2025 [id number] Noted Normal [facility] 36on 02-16-2025 36 noted Normal [facility] 36 Sabrina Last spok e with patient and she says she only uses [facility] and she would like to go there. [facility] [id number] 02-14-2025 [id number] All addressed in ano ther encounter [facility] [id number] Chintan Strong You; [facility] Clinical Support Staff3 weeks ago Can someone call an MRI department and see if there is such a procedure where a patient is given a short term sedative hypnotic like Versed to do a cervical spine MRI. Unaware of what facility does this type of MRI. You will need to contact other facilities to check. [facility] 36on 02-14-2025 36 Chintan Strong; [facility] Clinical Support Staff3 weeks ago Can someone call an MRI department and see if there is such a procedure where a patient is given a short term sedative hypnotic like Versed to do a cervical spine MRI. Unaware of what facility does this type of MRI. You will need to contact other facilities to check. Normal [facility] CULTURE, URINE, ROUTINEon Bacteria identified Cx Nom (U) SEE NOTE Abnormal [facility] Comment on above: Result Comment: CULTURE, URINE, ROUTINE Micro Number: [id number] Test Status: Final Specimen Source: Urine Specimen [...] #### 3 95, 7909 #### [facility] [place] [address] Instructor Warper: Tyler Mcrae MD REFLEXIVE URINE CULTUREon REFLEXIVE URINE CULTURE Normal [facility] Comment on above: Result Comment: CULT URE INDICATED - RESULTS TO FOLLOW Performed By: #### 3 , 7909 #### [facility] [place] [address] Instructor Warper: Tyler Mcrae MD URINALYSIS, COMPLETE W/REFLE X TO CULTUREon 02-10-2025 Appearance (U) CLEAR Normal CLEAR [facility] Comment on above: Performed By: #### 3 95, 7909 #### [facility] [place] [address] Instructor Warper: Tyler Mcrae MD BACTERIA MANY Abnormal NONE SEEN [facility] Comment on above: Performed By: #### 3 95, 7909 #### [facility] [place] [address] Instructor Warper: Tyler Mcrae MD Bilirubin Ql (U) Negative Normal NEGATIVE [facility] Comment on above: Performed By: #### 3 95, 7909 #### [facility] [place] [address] Instructor Warper: Tyler Mcrae MD Color (U) YELLOW Normal YELLOW [facility] Comment on above: Performed By: #### 3 95, 7909 #### [facility] [place] [address] Instructor Warper: Tyler Mcrae MD Glucose Ql (U) Negative Normal NEGATIVE [facility] Comment on above: Performed By: #### 3 95, 7909 #### [facility] [place] [address] Instructor Warper: Tyler Mcrae MD HYALINE CAST 6-10 Abnormal NONE SEEN [facility] Comment on above: Performed By: #### 3 95, 7909 #### [facility] [place] [address] Instructor Warper: Tyler Mcrae MD Ketones Ql (U) Negative Normal NEGATIVE [facility] Comment on above: Performed By: #### 3 95, 7909 #### [facility] [place] [address] Instructor Warper: Tyler Mcrae MD Leukocyte esterase Test strip Ql (U) 2+ Abnormal NEGATIVE [facility] Comment on above: Performed By: #### 3 95, 7909 #### [facility] [place] [address] Instructor Warper: Tyler Mcrae MD Nitrite Ql (U) Positive Abnormal NEGATIVE [facility] Comment on above: Performed By: #### 3 95, 7909 #### [facility] [place] [address] Instructor Warper: Tyler Mcrae MD NOTE Normal [facility] Comment on above: Result Comment: This urine was analyzed for the presence of WBC, RBC, bacteria, casts, and other formed elements. Only those elements seen were reported. Performed By: #### 3 95, 7909 #### [facility] of [address], [address] [place] [address] Instructor Warper: Tyler Mcrae MD OCCULT BLOOD Negative Normal NEGATIVE [facility] Comment on above: Performed By: #### 3 95, 7909 #### [facility] of [address], [address] [place] [address] Instructor Warper: Tyler Mcrae MD pH (U) 6.5 [pH] Normal 5.0-8.0 [facility] Comment on above: Performed By: #### 3 95, 7909 #### [facility] of [place] [address] Instructor Warper: Tyler Mcrae MD Protein Ql (U) Negative Normal NEGATIVE [facility] Comment on above: Performed By: #### 3 95, 7909 #### [facility] [place] [address] Instructor Warper: Tyler Mcrae MD RBC NONE SEEN Normal < OR = 2 [facility] Comment on above: Performed By: #### 3 95, 7909 #### [facility] of [place] [address] Instructor Warper: Tyler Mcrae MD Specific gravity (U) [Rel density] 1.010 Normal 1.001-1.035 [facility] Comment on above: Performed By: #### 3 95, 7909 #### [facility] of [place] [address] Instructor Warper: Tyler Mcrae MD SQUAMOUS EPITHELIAL CELLS 0-5 Normal < OR = 5 [facility] Comment on above: Performed By: #### 3 95, 7909 #### [facility] of [place] [address] Instructor Warper: Tyler Mcrae MD WBC 10-20 Abnormal < OR = 5 [facility] Comment on above: Performed By: #### 3 95, 7909 #### [facility] of [address] [place] [address] Instructor Warper: Tyler Mcrae MD Basic metabolic 2000 panelon 02-08-2025 Anion gap [Moles/Vol] 16 mmol/L Normal 10-20 [facility] Comment on above: Performed By: #### 2 4321-2 #### GABINO Velarde ([id number]) [facility] ([facility]) [address] [place] [address] Calcium [Mass/Vol] 9.8 mg/dL Normal 8.6-10.6 [facility] Comment on above: Performed By: #### 2 4321-2 #### GABINO PETERSON L (92463) [facility] ([facility]) [address] [place] [address] Chloride [Moles/Vol] 102 mmol/L Normal 98-107 [facility] Comment on above: Performed By: #### 2 4321-2 #### GABINO PETERSON L (07686) [facility] ([facility]) [address] [place] [address] CO2 [Moles/Vol] 27 mmol/L Normal 21-32 [facility] Comment on above: Performed By: #### 2 4321-2 #### GABINO PETERSON L ([id number]) [facility] ([facility]) [address] [place] [address] Creatinine [Mass/Vol] 0.59 mg/dL Normal 0.50-1.05 [facility] Comment on above: Performed By: #### 2 4321-2 #### GABINO PETERSON L (67982) [facility] ([facility]) [address] [place] [address] GFR/1.73 sq M.predicted MDRD (S/P/Bld) [Vol rate/Area] mL/min/{1.73_m2} Normal >60 [facility] Comment on above: Result Comment: Calc ulations of estimated GFR are performed using the 2020 CKD-EPI Study Refit equation without the race variable for the IDMS-Traceable creatinine methods. https://jasn.asnjournals.org/content//ASN.1889082 988 Performed By: #### 2 4321-2 #### GABINO Velarde (55053) [facility] ([facility]) [id number] [place] [address] Glucose [Mass/Vol] 98 mg/dL Normal 74-99 [facility] Comment on above: Performed By: #### 2 4321-2 #### GABINO Velarde ([id number]) [facility] ([facility]) [address] [place] [address] Potassium [Moles/Vol] 3.7 mmol/L Normal 3.5-5.3 [facility] Comment on above: Performed By: #### 2 4321-2 #### GABINO Velarde (59911) [facility] ([facility]) [id number] [place] [address] Sodium [Moles/Vol] 141 mmol/L Normal 136-145 [facility] Comment on above: Performed By: #### 2 4321-2 #### GABINO Velarde (40167) [facility] ([facility]) [address] [place] [address] Urea nitrogen [Mass/Vol] 13 mg/dL Normal 6-23 [facility] Comment on above: Performed By: #### 2 4321-2 #### GABINO Velarde (65820) [facility] ([facility]) [address] [place] [address] CBC panel Auto (Bld)on 02-08 Erythrocyte distribution width (RBC) [Ratio] 12.7 % Normal 11.5-14.5 [facility] Comment on above: Performed By: #### 5 8410-2 #### GABINO PETERSON L (18336) [facility] ([facility]) [address] [place] [address] Hematocrit (Bld) [Volume fraction] 42.6 % Normal 36.0-46.0 [facility] Comment on above: Performed By: #### 5 8410-2 #### GABINO Velarde (89330) [facility] ([facility]) [address] [place] [address] Hemoglobin (Bld) [Mass/Vol] 13.3 g/dL Normal 12.0-16.0 [facility] Comment on above: Performed By: #### 5 8410-2 #### GABINO Velarde (90478) [facility] ([facility]) [address] [place] [address] 53329 MCH (RBC) [Entitic mass] 31.5 pg Normal 26.0-34.0 [facility] Comment on above: Performed By: #### 5 8410-2 #### GABINO Velarde (23150) [facility] ([facility]) [address] [place] [address] 495[address] MCHC (RBC) [Mass/Vol] 31.2 g/dL Low 32.0-36.0 [facility] Comment on above: Performed By: #### 5 8410-2 #### GABINO Velarde (79398) [facility] ([facility]) [address] [place] [address]505 MCV (RBC) [Entitic vol] 101 fL High 80-100 [facility] Comment on above: Performed By: #### 5 8410-2 #### GABINO Velarde (93437) [facility] ([facility]) [address] [place] [address] 33188 Nucleated RBC/100 WBC (Bld) [Ratio] 0.0 /100 WBCs Normal 0.0-0.0 [facility] Comment on above: Performed By: #### 5 8410-2 #### GABINO Velarde (42534) [facility] ([facility]) [address] [place] [address] 51059 Platelets (Bld) [#/Vol] 338 x10*3/uL Normal 150-450 [facility] Comment on above: Performed By: #### 5 8410-2 #### GABINO Velarde ([id number]) [facility] ([facility]) [address] [place] [address] RBC (Bld) [#/Vol] 4.22 x10*6/uL Normal 4.00-5.20 [facility] Comment on above: Performed By: #### 5 8410-2 #### GABINO Velarde (42921) [facility] ([facility]) [address] [place] [address] WBC (Bld) [#/Vol] 7.5 x10*3/uL Normal 4.4-11.3 [facility] Comment on above: Performed By: #### 5 8410-2 #### GABINO Velarde ([id number]) [facility] ([facility]) [address] [place] [address] Office Visiton 02-08-2025 Follow-up visit [id number] Jamaica Hsu 1960 F [facility] Provider Department Wing 02/08/2025 [id number] ALEJANDRO [place] [facility] Family History Problem Relation Age of [...] Alive Daughter Son Cousin Other Level of Service:58712 [place] OFFICE/OUTPATIENT ESTABLISHED LOW MDM 20 MIN Reason for Visit and Comments: Follow-up [369970] - Statement of health verification and health status Normal [facility] Progress Noteon 02-08-2025 Progress Note [facility] [place] [address] [place] [address] Visit type: Established Patient Reason for [...] 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 Has stable migraine treatment. Issues with chronic right leg pain due to her complex regional pain syndrome but reasonably controlled with gabapentin and clonidine. Allergies Allergen Reactions Lidocaine Anaphylaxis Other reaction(s): Unknown Moxifloxacin Swelling and Anaphylaxis Lips and tongue swelling and eye lid Dyer Hives, Itching, Shortness of breath and Dermatitis Other reaction(s): Dermatitis, shortness of breath Dyer Nuts Shortness of breath Bupivacaine Other reaction(s): [...] the evening. Collagen . vit A,C and P-mlyzqq-ciqsbbly (Ocuvite) tablet [DISCONTINUED] baclofen (Lioresal) 10 MG [...] Fibromyalgia Osteopen (more content not included)... Normal [facility] AMBEROVdennis 01-09-2025 [facility] Office Visit (AGPOB3 ) -- ANCA HSU ([id number]) 1960 F Date Time Provider Department 01/09/25 [...] visit. ALLERGIES Allergen Reactions Demoral [Meperidine] Anaphylaxis Dyer Nut Rash, Hives, Itching, Shortness of Breath [...] (Sulfonamide * Rash Tree Nuts Anaphylaxis Walnuts Crandall Anaphylaxis Resp 18 Ht 162.6 cm (5' [...] Lymph: There (more content not included)... Normal [facility] US ABDOMEN COMPLETEon 2024 US ABDOMEN COMPLETE Interpreted By: Giuliano Noel, STUDY: US ABDOMEN COMPLETE; 01/01/2025 10:55 am INDICATION: 64 y/o F with Signs/Symptoms:SEE DX. ,K58.9 Irritable bowel syndrome, unspecified,K76.0 Fatty (change of) liver, not elsewhere classified COMPARISON: None. ACCESSION NUMBER(S): [id number] ORDERING CLINICIAN: GABINO LUIS TECHNIQUE: Routine ultrasound [...] Giuliano Calderon 01/01/2025 5:49 PM Dictation workstation: [id number] [facility] XR CERVICAL SPINE COMPLETE 4 -5 VIEWSon 01-01-2025 XR CERVICAL SPINE COMPLETE 4-5 VIEWS Interpreted By: Krishna Byrne, STUDY: XR CERVICAL SPINE COMPLETE 4-5 VIEWS; ; 01/01/2025 11:24 am INDICATION: Signs/Symptoms:PAINFUL RUE. ,M79.601 Pain in right arm,G89.29 Other chronic pain COMPARISON: None. ACCESSION NUMBER(S): [id number] ORDERING CLINICIAN: KORY ALEJANDRO FINDINGS: Cervical spine, [...] acute abnormality MACRO: None Signed by: Krishna Byren 01/01/2025 6:07 PM Dictation workstation: [id number] [facility] XR SHOULDER RIGHT 2+ VIEWSon 01-01-2025 XR SHOULDER RIGHT 2+ VIEWS Interpreted By: Krishna Byrne, STUDY: XR SHOULDER RIGHT 2+ VIEWS; ; 01/01/2025 11:24 am INDICATION: Signs/Symptoms:PAINFUL SHOULDER. ,M25.511 Pain in right shoulder,G89.29 Other chronic pain COMPARISON: None. ACCESSION NUMBER(S): [id number] ORDERING CLINICIAN: KORY ALEJANDRO FINDINGS: Right shoulder, three views There is no fracture. There is no dislocation. There are no degenerative changes. There is no lytic or sclerotic lesion. There is no soft tissue abnormality seen. IMPRESSION: Normal radiographs of the right shoulder MACRO: None Signed by: Krishna Bryne 01/01/2025 5:39 PM Dictation workstation: [id number] [facility] Marnie 12-07-2024 CNPN Telephone (NREUS2) -- ANCA HSU ([id number]) 1960 F Date Time Provider Department 12/07/24 [...] Assessed Reason for Visit: Research [293] Cmt: [id number] Effects of Ketamine on Pain Learning Prescriptions [...] Status:Closed by RUFINA MARCOS on 12/07/24 Normal [facility] Bacteria identifiedon 2023 Bacteria identified Cx Nom (U) Test: Urine Culture Specimen Source: Clean Catch/Voided Specimen Type: Urine Specimen Date: 10/30/2024 1640 Result Date: 11/02/2024 1216 Result Status: Final result Abnormal: Yes Resulting Lab: [facility] [address] [address] CULTURE >=100,000 CFU/mL Escherichia coli (Abnormal) SUSCEPTIBILITY Escherichia coli METHOD MICROSCAN --------- AMPICILLIN <=8.000 ug/ml Susceptible CEFAZOLIN <=2 ug/ml Susceptible CEFAZOLIN (UNCOMPLICATED UTIS ONLY) <=2 ug/ml Susceptible CIPROFLOXACIN <=0.250 ug/ml Susceptible GENTAMICIN <=2.000 ug/ml Susceptible NITROFURANTOIN <=32 ug/ml Susceptible PIPERACILLIN/TAZOBACTAM <=8.000 ug/ml Susceptible TRIMETHOPRIM/SULFAMETHOXAZ OLE <=2/38 ug/ml Susceptible Abnormal [facility] Comment on above: Performed By: #### 6 30-4 #### GABINO Velarde ([id number]) [facility] ([facility]) [address] [place] [address] 75422 Bacteria identifiedon 2023 Bacteria identified Cx Nom (U) Test: Urine Culture Specimen Source: Clean Catch/Voided Specimen Type: Urine Specimen Date: 10/26/2024 0900 Result Date: 10/28/2024 145 Result Status: Final result Abnormal: No Resulting Lab: [facility] [address] [place], [place] [id number] CULTURE Growth indicates contamination with mixed bacterial jose. Repeat culture if clinically indicated. Normal [facility] Comment on above: Performed By: #### 6 30-4 #### GABINO Velarde ([id number]) [facility] ([facility]) [address] [place] [address] 66969 Basic metabolic 2000 panelon 10-23-2024 Anion gap [Moles/Vol] 15 mmol/L Normal 10-20 [facility] Comment on above: Performed By: #### 2 4321-2 #### GABINO Velarde ([id number]) [facility] ([facility]) [address] [place] [address] 40911 Calcium [Mass/Vol] 9.5 mg/dL Normal 8.6-10.6 [facility] Comment on above: Performed By: #### 2 4321-2 #### GABINO Velarde ([id number]) [facility] ([facility]) [address] [place] [address] 49978 Chloride [Moles/Vol] 107 mmol/L Normal 98-107 [facility] Comment on above: Performed By: #### 2 4321-2 #### GABINO Velarde ([id number]) [facility] ([facility]) [address] [place] [address] 40392 CO2 [Moles/Vol] 26 mmol/L Normal 21-32 [facility] Comment on above: Performed By: #### 2 4321-2 #### GABINO Velarde ([id number]) [facility] ([facility]) [address] [place] [address] Creatinine [Mass/Vol] 0.54 mg/dL Normal 0.50-1.05 [facility] Comment on above: Performed By: #### 2 4321-2 #### GABINO Velarde ([id number]) [facility] ([facility]) [address] [place] [address] 40539 GFR/1.73 sq M.predicted MDRD (S/P/Bld) [Vol rate/Area] mL/min/{1.73_m2} Normal >60 [facility] Comment on above: Result Comment: Calc ulations of estimated GFR are performed using the 2020 CKD-EPI Study Refit equation without the race variable for the IDMS-Traceable creatinine methods. https://jasn.asnjournals.org/content/early/ASN.2006877 988 Performed By: #### 2 4321-2 #### GABINO Velarde ([id number]) [facility] ([facility]) [address] [place] [address] 76927 Glucose [Mass/Vol] 92 mg/dL Normal 74-99 [facility] Comment on above: Performed By: #### 2 4321-2 #### GABINO Velarde ([id number]) [facility] ([facility]) [address] [place] [address] 91333 Potassium [Moles/Vol] 3.7 mmol/L Normal 3.5-5.3 [facility] Comment on above: Performed By: #### 2 4321-2 #### GABINO PETERSON L ([id number]) [facility] ([facility]) [address] [place] [address] 81509 Sodium [Moles/Vol] 144 mmol/L Normal 136-145 [facility] Comment on above: Performed By: #### 2 4321-2 #### GABINO Velarde ([id number]) [facility] ([facility]) [address] [place] [address] 78711 Urea nitrogen [Mass/Vol] 12 mg/dL Normal 6-23 [facility] Comment on above: Performed By: #### 2 4321-2 #### GABINO Velarde ([id number]) [facility] ([facility]) [address] [place] [address] C peptideon 10-23-2024 C peptide [Mass/Vol] 1.3 ng/mL Normal 0.7-3.9 [facility] Comment on above: Performed By: #### 1 986-9 #### GABINO Velarde ([id number]) [facility] ([facility]) [address] [place] [address] 30405 Insulinon 10-23-2024 Insulin Qn 9 u[IU]/mL Normal 3-25 [facility] Comment on above: Order Comment: Refer ence values apply to fasting specimens. Performed By: #### 2 0448-7 #### GABINO Velarde ([id number]) [facility] ([facility]) [address] [place] [address] 74093 Proinsulin^post 12H CFston 1 12-24-2023 Proinsulin post 12 Hr fast [Moles/Vol] <2.0 Normal <=7.2 [facility] Comment on above: Result Comment: Perf ormed By: [employer] [address] [place] [address]1702 [employer]ose: Allan Dawson MD, PhD CLIA Number: [id number] Performed By: #### 2 4323-8 #### GABINO Velarde ([id number]) [facility] ([facility]) [address] [place] [address] 74790 Thyroxine.freeon 10-23-2024 Free T4 [Mass/Vol] 1.13 ng/dL Normal 0.78-1.48 [facility] Comment on above: Order Comment: Thyro xine Free testing is performed using different testing methodology at [facility] than at other [facility]. Direct result comparisons should only be made within the same method. Performed By: #### 3 024-7 #### GABINO Velarde ([id number]) [facility] ([facility]) [address] [place] [address] Triiodothyronineon 4 T3 [Mass/Vol] 83 ng/dL Normal 60-200 [facility] Comment on above: Performed By: #### 3 053-6 #### GABINO Velarde ([id number]) [facility] ([facility]) [address] [id number] XR HIP RIGHT WITH PELVIS WHE N PERFORMED 2 OR 3 VIEWSon 10-19-2024 XR HIP RIGHT WITH PELVIS WHEN PERFORMED 2 OR 3 VIEWS Interpreted By: Krishna Byrne, STUDY: XR HIP RIGHT WITH PELVIS WHEN PERFORMED 2 OR 3 VIEWS; ; 10/19/2024 10:27 am INDICATION: Signs/Symptoms:pain. ,Z96.641 Presence of right artificial hip joint COMPARISON: 08/11/2024 ACCESSION NUMBER(S): [id number] ORDERING CLINICIAN: NORMAN JUARES FINDINGS: Right hip, three views Right total hip arthroplasty in place. There is no periprosthetic fracture or lucency. There is no dislocation. Mild osteophytosis in the left hip. IMPRESSION: No hardware failure about the right total hip arthroplasty MACRO: None Signed by: Krishna Byrne 10/20/2024 10:12 PM Dictation workstation: [id number] [facility] XR KNEE RIGHT 3 VIEWSon 10-01 XR KNEE RIGHT 3 VIEWS Interpreted By: Krishna Byrne, STUDY: XR KNEE RIGHT 3 VIEWS; ; 10/19/2024 10:27 am INDICATION: Signs/Symptoms:pain. ,M25.561 Pain in right knee COMPARISON: None. ACCESSION NUMBER(S): [id number] ORDERING CLINICIAN: NORMAN JUARES FINDINGS: Right knee, three views There is mild osteophytosis in the medial compartment. The lateral and patellofemoral compartments are within normal limits. There is no effusion seen. There is no fracture or dislocation seen IMPRESSION: Mild medial compartment osteoarthritis. MACRO: None Signed by: Krishna Byrne 10/20/2024 10:09 PM Dictation workstation: [id number] [facility] Bacteria identifiedon 2023 Bacteria identified Cx Nom (U) Test: Urine Culture Specimen Source: Clean Catch/Voided Specimen Type: Urine Specimen Date: 09/21/2024844 Result Date: 09/24/2024901 Result Status: Final result Abnormal: Yes Resulting Lab: [facility] [address] [place] [address] CULTURE >100,000 Escherichia coli (Abnormal) SUSCEPTIBILITY Escherichia coli METHOD MICROSCAN --------- AMPICILLIN <=8.000 ug/ml Susceptible CEFAZOLIN <=2 ug/ml Susceptible CEFAZOLIN (UNCOMPLICATED UTIS ONLY) <=2 ug/ml Susceptible CIPROFLOXACIN <=0.250 ug/ml Susceptible GENTAMICIN <=2.000 ug/ml Susceptible NITROFURANTOIN <=32 ug/ml Susceptible PIPERACILLIN/TAZOBACTAM <=8.000 ug/ml Susceptible TRIMETHOPRIM/SULFAMETHOXAZ OLE <=2/38 ug/ml Susceptible Abnormal [facility] Comment on above: Performed By: #### 6 30-4 #### GABINO Velarde ([id number]) [facility] ([facility]) [address] [place] [address] C reactive proteinon 024 CRP [Mass/Vol] mg/L Normal <1.00 [facility] Comment on above: Performed By: #### 1 988-5 #### GABINO Velarde ([id number]) [facility] ([facility]) [address] [place], [place] [address] CBC W Auto Differential pane l (Bld)on 09-19-2024 Basophils (Bld) [#/Vol] 0.05 x10*3/uL Normal 0.00-0.10 [facility] Comment on above: Performed By: #### 5 7021-8 #### GABINO Velarde ([id number]) [facility] ([facility]) [address] [place] [address] 88515 Basophils/100 WBC (Bld) 0.9 % Normal 0.0-2.0 [facility] Comment on above: Performed By: #### 5 7021-8 #### GABINO Velarde ([id number]) [facility] ([facility]) [address] [place] [address] 24598 Eosinophils (Bld) [#/Vol] 0.17 x10*3/uL Normal 0.00-0.70 [facility] Comment on above: Performed By: #### 5 7021-8 #### GABINO Velarde ([id number]) [facility] ([facility]) [address] [place] [address] 58160 Eosinophils/100 WBC (Bld) 3.1 % Normal 0.0-6.0 [facility] Comment on above: Performed By: #### 5 7021-8 #### GABINO Velarde ([id number]) [facility] ([facility]) [address] [place] [address] 97796 Erythrocyte distribution width (RBC) [Ratio] 12.6 % Normal 11.5-14.5 [facility] Comment on above: Performed By: #### 5 7021-8 #### GABINO Velarde ([id number]) [facility] ([facility]) [address] [place] [address] 66040 Hematocrit (Bld) [Volume fraction] 35.1 % Low 36.0-46.0 [facility] Comment on above: Performed By: #### 5 7021-8 #### GABINO Velarde ([id number]) [facility] ([facility]) [address] [place] [address] 99831 Hemoglobin (Bld) [Mass/Vol] 11.1 g/dL Low 12.0-16.0 [facility] Comment on above: Performed By: #### 5 7021-8 #### GABINO Velarde ([id number]) [facility] ([facility]) [address] [place] [address] 18564 Immature granulocytes (Bld) [#/Vol] 0.01 x10*3/uL Normal 0.00-0.70 [facility] Comment on above: Performed By: #### 5 7021-8 #### GABINO Velarde (54412) [facility] ([facility]) [address] [place] [address] 34961 Immature granulocytes/100 WBC (Bld) 0.2 % Normal 0.0-0.9 [facility] Comment on above: Result Comment: Lizzy ture Granulocyte Count (IG) includes promyelocytes, myelocytes and metamyelocytes but does not include bands. Percent differential counts (%) should be interpreted in the context of the absolute cell counts (cells/UL). Performed By: #### 5 7021-8 #### GABINO Velarde ([id number]) [facility] ([facility]) [address] [place] [address] 64887 Lymphocytes (Bld) [#/Vol] 1.67 x10*3/uL Normal 1.20-4.80 [facility] Comment on above: Performed By: #### 5 7021-8 #### GABINO Velarde ([id number]) [facility] ([facility]) [address] [place] [address] 12271 Lymphocytes/100 WBC (Bld) 30.7 % Normal 13.0-44.0 [facility] Comment on above: Performed By: #### 5 7021-8 #### GABINO Velarde (44277) [facility] ([facility]) [address] [place] [address] 98703 MCH (RBC) [Entitic mass] 31.1 pg Normal 26.0-34.0 [facility] Comment on above: Performed By: #### 5 7021-8 #### GABINO Velarde ([id number]) [facility] ([facility]) [address] [place] [address] 24601 MCHC (RBC) [Mass/Vol] 31.6 g/dL Low 32.0-36.0 [facility] Comment on above: Performed By: #### 5 7021-8 #### GABINO Velarde ([id number]) [facility] ([facility]) [address] [place] [address] MCV (RBC) [Entitic vol] 98 fL Normal 80-100 [facility] Comment on above: Performed By: #### 5 7021-8 #### GABINO Velarde ([id number]) [facility] ([facility]) [address] [place] [address] 92889 Monocytes (Bld) [#/Vol] 0.63 x10*3/uL Normal 0.10-1.00 [facility] Comment on above: Performed By: #### 5 7021-8 #### GABINO Velarde ([id number]) [facility] ([facility]) [address] [place] [address] 87540 Monocytes/100 WBC (Bld) 11.6 % Normal 2.0-10.0 [facility] Comment on above: Performed By: #### 5 7021-8 #### GABINO Velarde ([id number]) [facility] ([facility]) [address] [place] [address] 35114 Neutrophils (Bld) [#/Vol] 2.91 x10*3/uL Normal 1.20-7.70 [facility] Comment on above: Result Comment: Perc ent differential counts (%) should be interpreted in the context of the absolute cell counts (cells/uL). Performed By: #### 5 7021-8 #### GABINO Velarde ([id number]) [facility] ([facility]) [address] [place] [address] 51770 Neutrophils/100 WBC (Bld) 53.5 % Normal 40.0-80.0 [facility] Comment on above: Performed By: #### 5 7021-8 #### GABINO Velarde ([id number]) [facility] ([facility]) [address] [place] [address] 89010 Nucleated RBC/100 WBC (Bld) [Ratio] 0.0 /100 WBCs Normal 0.0-0.0 [facility] Comment on above: Performed By: #### 5 7021-8 #### GABINO Velarde ([id number]) [facility] ([facility]) [address] [place] [address] Platelets (Bld) [#/Vol] 257 x10*3/uL Normal 150-450 [facility] Comment on above: Performed By: #### 5 7021-8 #### GABINO Velarde ([id number]) [facility] ([facility]) [address] [place] [address] 35336 RBC (Bld) [#/Vol] 3.57 x10*6/uL Low 4.00-5.20 [facility] Comment on above: Performed By: #### 5 7021-8 #### GABINO Velarde ([id number]) [facility] ([facility]) [address] [place] [address] 38105 WBC (Bld) [#/Vol] 5.4 x10*3/uL Normal 4.4-11.3 [facility] Comment on above: Performed By: #### 5 7021-8 #### GABINO Velarde ([id number]) [facility] ([facility]) [address] [place] [address] 68115 Comprehensive metabolic 2000 panelon 09-19-2024 Albumin BCP dye [Mass/Vol] 4.3 g/dL Normal 3.4-5.0 [facility] Comment on above: Performed By: #### 2 4323-8 #### GABINO Velarde ([id number]) [facility] ([facility]) [address] [place] [address] 88397 ALP [Catalytic activity/Vol] 72 U/L Normal 33-136 [facility] Comment on above: Performed By: #### 2 4323-8 #### GABINO Velarde ([id number]) [facility] ([facility]) [address] [place] [address] 00210 ALT With P-5'-P [Catalytic activity/Vol] 45 U/L Normal 7-45 [facility] Comment on above: Result Comment: Tiffany ents treated with Sulfasalazine may generate falsely decreased results for ALT. Performed By: #### 2 4323-8 #### GABINO Velarde ([id number]) [facility] ([facility]) [address] [place] [address] Anion gap [Moles/Vol] 10 mmol/L Normal 10-20 [facility] Comment on above: Performed By: #### 2 4323-8 #### GABINO Velarde ([id number]) [facility] ([facility]) [address] [place] [address] 44078 AST With P-5'-P [Catalytic activity/Vol] 39 U/L Normal 9-39 [facility] Comment on above: Performed By: #### 2 4323-8 #### GABINO Velarde ([id number]) [facility] ([facility]) [address] [place] [address] 90901 Bilirubin [Mass/Vol] 0.3 mg/dL Normal 0.0-1.2 [facility] Comment on above: Performed By: #### 2 4323-8 #### GABINO Velarde (38731) [facility] ([facility]) [address] [place] [address] Calcium [Mass/Vol] 9.1 mg/dL Normal 8.6-10.6 [facility] Comment on above: Performed By: #### 2 4323-8 #### GABINO Velarde (67402) [facility] ([facility]) [address] [place] [address] Chloride [Moles/Vol] 106 mmol/L Normal 98-107 [facility] Comment on above: Performed By: #### 2 4323-8 #### GABINO Velarde ([id number]) [facility] ([facility]) [address] [place] [address] 43580 CO2 [Moles/Vol] 31 mmol/L Normal 21-32 [facility] Comment on above: Performed By: #### 2 4323-8 #### GABINO Velarde (58651) [facility] ([facility]) [address] [place] [address] Creatinine [Mass/Vol] 0.49 mg/dL Low 0.50-1.05 [facility] Comment on above: Performed By: #### 2 4323-8 #### GABINO Velarde (77614) [facility] ([facility]) [address] [place] [address] 86517 GFR/1.73 sq M.predicted MDRD (S/P/Bld) [Vol rate/Area] mL/min/{1.73_m2} Normal >60 [facility] Comment on above: Result Comment: Calc ulations of estimated GFR are performed using the 2020 CKD-EPI Study Refit equation without the race variable for the IDMS-Traceable creatinine methods. https://jasn.asnjournals.org/content/early/ASN.7675036 988 Performed By: #### 2 4323-8 #### GABINO Velarde ([id number]) [facility] ([facility]) [address] [place] [address] 60079 Glucose [Mass/Vol] 85 mg/dL Normal 74-99 [facility] Comment on above: Performed By: #### 2 4323-8 #### GABINO Velarde ([id number]) [facility] ([facility]) [address] [place] [address] 33542 Potassium [Moles/Vol] 4.1 mmol/L Normal 3.5-5.3 [facility] Comment on above: Performed By: #### 2 4323-8 #### GABINO Velarde (50701) [facility] ([facility]) [address] [place] [address] Protein [Mass/Vol] 6.2 g/dL Low 6.4-8.2 [facility] Comment on above: Performed By: #### 2 4323-8 #### GABINO Velarde ([id number]) [facility] ([facility]) [id number] [place] [id number] Sodium [Moles/Vol] 143 mmol/L Normal 136-145 [facility] Comment on above: Performed By: #### 2 4323-8 #### GABINO Velarde ([id number]) [facility] ([facility]) [id number] [place] [id number] Urea nitrogen [Mass/Vol] 10 mg/dL Normal 6-23 [facility] Comment on above: Performed By: #### 2 4323-8 #### GABINO Velarde ([id number]) [facility] ([facility] [facility]) [id number] [place] [address] ESR Westergren method (Bld) [Velocity]on 09-19-2024 ESR (Bld) [Velocity] mm/h Normal 0-30 [facility] Comment on above: Performed By: #### 4 [id number] #### TRISTEN JULIEN ([id number]) [facility] ([facility]) [address] [place] [address] XR HIP RIGHT WITH PELVIS WHE N PERFORMED 2 OR 3 VIEWSon 08-11-2024 XR HIP RIGHT WITH PELVIS WHEN PERFORMED 2 OR 3 VIEWS Interpreted By: Krishna Byrne, STUDY: XR HIP RIGHT WITH PELVIS WHEN PERFORMED 2 OR 3 VIEWS; ; 08/11/2024 1:48 pm INDICATION: Signs/Symptoms:OSTEOARTHRI TIS. ,M16.11 Unilateral primary osteoarthritis, right hip COMPARISON: 01/20/2023 ACCESSION NUMBER(S): [id number] ORDERING CLINICIAN: NORMAN DURON FINDINGS: Right hip, three views Total hip arthroplasty in place. There is no periprosthetic fracture or lucency. There is no dislocation. Mild degenerative change the left hip IMPRESSION: No hardware failure about the right total hip arthroplasty MACRO: None Signed by: Krishna Byrne 08/12/2024 8:12 AM Dictation workstation: [id number] [facility] ECG 12-LEADon 01-04-2024 ECG 12-LEAD Ventricular Rate 86 Atrial Rate 86 P-R Interval 128 QRS Duration 80 Q-T Interval 358 QTC Calculation(Bazett) 428 P [place] 73 R [place] 74 T [place] 59 QRS Count 14 Q Onset 222 P Onset 158 P Offset 210 T Offset 401 QTC Fredericia 403 Diagnosis Normal sinus rhythm Normal ECG When compared with ECG of 05-JAN-2023 13:43, Nonspecific T wave abnormality no longer evident in Inferior leads Confirmed by Hunter Fontenot ([id number]) on 01/07/2024 2:31:[address] [facility] XR HIP RIGHT 2-3 VIEW W PELV [...] CLAUDIO MD Signed Out: 09/05/23 08:12:40 Normal [facility] CBC AND DIFFERENTIALon 07-30 % AUTOMATED IMMATURE GRAN 0.3 % Normal 0.0 - 0.9 [facility] Comment on above: Result Comment: Lzizy ture Granulocyte Count (IG) includes promyelocytes, myelocytes and metamyelocytes but does not include bands. Percent differential counts (%) should be interpreted in the context of the absolute cell counts (cells/L). Performed By: #### C BCDF #### [facility] [address] [place] [address] Basophils (Bld) [#/Vol] 0.06 10*3/uL Normal 0.00 - 0.10 [facility] Comment on above: Performed By: #### C BCDF #### [facility] [address] [place] [address] Basophils/100 WBC (Bld) 1.6 % Normal 0.0 - 2.0 [facility] Comment on above: Performed By: #### C BCDF #### [facility] [address] [place] [address] Eosinophils (Bld) [#/Vol] 0.10 10*3/uL Normal 0.00 - 0.70 [facility] Comment on above: Performed By: #### C BCDF #### [facility] [address] [place] [address] Eosinophils/100 WBC (Bld) 2.6 % Normal 0.0 - 6.0 [facility] Comment on above: Performed By: #### C BCDF #### [facility] [address] [place] [address] Erythrocyte distribution width (RBC) [Ratio] 13.1 % Normal 11.5 - 14.5 [facility] Comment on above: Performed By: #### C BCDF #### [facility] [address] [place] [address] Hematocrit (Bld) [Volume fraction] 40.4 % Normal 36.0 - 46.0 [facility] Comment on above: Performed By: #### C BCDF #### [facility] [address] [place] [address] Hemoglobin (Bld) [Mass/Vol] 12.6 g/dL Normal 12.0 - 16.0 [facility] Comment on above: Performed By: #### C BCDF #### [facility] [address] [place] [address] Lymphocytes (Bld) [#/Vol] 1.26 10*3/uL Normal 1.20 - 4.80 [facility] Comment on above: Performed By: #### C BCDF #### [facility] [address] [place] [address] Lymphocytes/100 WBC (Bld) 32.6 % Normal 13.0 - 44.0 [facility] Comment on above: Performed By: #### C BCDF #### [facility] [address] [place] [address] MCHC (RBC) [Mass/Vol] 31.2 g/dL Low 32.0 - 36.0 [facility] Comment on above: Performed By: #### C BCDF #### [facility] [address] [place] [address] MCV (RBC) [Entitic vol] 99 fL Normal 80 - 100 [facility] Comment on above: Performed By: #### C BCDF #### [facility] [address] [place] [address] Monocytes (Bld) [#/Vol] 0.48 10*3/uL Normal 0.10 - 1.00 [facility] Comment on above: Performed By: #### C BCDF #### [facility] [address] [place] [address] Monocytes/100 WBC (Bld) 12.4 % Normal 2.0 - 10.0 [facility] Comment on above: Performed By: #### C BCDF #### [facility] [address] [place] [address] Neutrophils (Bld) [#/Vol] 1.96 10*3/uL Normal 1.20 - 7.70 [facility] Comment on above: Performed By: #### C BCDF #### [facility] [address] [place] [address] Neutrophils/100 WBC (Bld) 50.5 % Normal 40.0 - 80.0 [facility] Comment on above: Performed By: #### C BCDF #### [facility] [address] [place] [address] NUCLEATED RBC 0.0 /100 WBC Normal 0.0-0.0 [facility] Comment on above: Performed By: #### C BCDF #### [facility] [address] [place] [address] Platelets (Bld) [#/Vol] 331 10*3/uL Normal 150 - 450 [facility] Comment on above: Performed By: #### C BCDF #### [facility] [address] [place] [address] RBC 4.10 x10E12/L Normal 4.00 - 5.20 [facility] Comment on above: Performed By: #### C BCDF #### [facility] [address] [place] [address] WBC (Bld) [#/Vol] 3.9 10*3/uL Low 4.4 - 11.3 [facility] Comment on above: Performed By: #### C BCDF #### [facility] [address] [place] [address] COMPREHENSIVE PANELon 2022 Albumin [Mass/Vol] 4.5 g/dL Normal 3.4 - 5.0 [facility] Comment on above: Performed By: #### C MP #### [facility] [address] [place] [address] ALP [Catalytic activity/Vol] 86 U/L Normal 33 - 136 [facility] Comment on above: Performed By: #### C MP #### [facility] [address] [place] [address] ALT [Catalytic activity/Vol] 32 U/L Normal 7 - 45 [facility] Comment on above: Result Comment: Tiffany ents treated with Sulfasalazine may generate falsely decreased results for ALT. Performed By: #### C MP #### [facility] [address] [place] [address] Anion gap [Moles/Vol] 12 mmol/L Normal 10 - 20 [facility] Comment on above: Performed By: #### C MP #### [facility] [address] [place] [address] AST [Catalytic activity/Vol] 28 U/L Normal 9 - 39 [facility] Comment on above: Performed By: #### C MP #### [facility] [address] [place] [address] Bilirubin [Mass/Vol] 0.3 mg/dL Normal 0.0 - 1.2 [facility] Comment on above: Performed By: #### C MP #### [facility] [address] [place] [address] Calcium [Mass/Vol] 9.7 mg/dL Normal 8.6 - 10.6 [facility] Comment on above: Performed By: #### C MP #### [facility] [address] [place] [address] Chloride [Moles/Vol] 105 mmol/L Normal 98 - 107 [facility] Comment on above: Performed By: #### C MP #### [facility] [address] [place] [address] Creatinine [Mass/Vol] 0.53 mg/dL Normal 0.50 - 1.05 [facility] Comment on above: Performed By: #### C MP #### [facility] [address] [place] [address] eGFR FEMALE >90 Normal >90 [facility] Comment on above: Result Comment: CALC ULATIONS OF ESTIMATED GFR ARE PERFORMED USING THE 2020 CKD-EPI STUDY REFIT EQUATION WITHOUT THE RACE VARIABLE FOR THE IDMS-TRACEABLE CREATININE METHODS. https://jasn.asnjournals.org/content/early//ASN.0382046 988 Performed By: #### C MP #### [facility] [address] [place] [address] Glucose [Mass/Vol] 77 mg/dL Normal 74 - 99 [facility] Comment on above: Performed By: #### C MP #### [facility] [address] [place] [address] HCO3 (Bld) [Moles/Vol] 31 mmol/L Normal 21 - 32 [facility] Comment on above: Performed By: #### C MP #### [facility] [address] [place] [address] Potassium [Moles/Vol] 4.0 mmol/L Normal 3.5 - 5.3 [facility] Comment on above: Performed By: #### C MP #### [facility] [address] [place] [address] Protein [Mass/Vol] 7.1 g/dL Normal 6.4 - 8.2 [facility] Comment on above: Performed By: #### C MP #### [facility] [address] [place] [address] Sodium [Moles/Vol] 144 mmol/L Normal 136 - 145 [facility] Comment on above: Performed By: #### C MP #### [facility] [address] [place] [address] Urea nitrogen [Mass/Vol] 14 mg/dL Normal 6 - 23 [facility] Comment on above: Performed By: #### C MP #### [facility] [address] [place] [address] Complete Blood Count + Diffe mateo 07-30-2023 Basophils/100 WBC (Bld) 1.6 % 0.0 - 2.0 GJ-Udsevsn-O estlaFilement [facility] [address] Work Phone: [phone] Erythrocyte distribution width (RBC) [Ratio] 13.1 % See Below DF-Jijthgg-Y estlaFilement [facility] [address] Work Phone: Comment on above: Reference Range: 11. 5 - 14.5 Hematocrit (Bld) [Volume fraction] 40.4 % See Below AI-Lflqwvt-X estlaFilement [facility] [address] Work Phone: Comment on above: Reference Range: 36. 0 - 46.0 Hemoglobin (Bld) [Mass/Vol] 12.6 g/dL See Below QP-Iubjkdy-J estlaFilement [facility] [address] Work Phone: Comment on above: Reference Range: 12. 0 - 16.0 Lymphocytes/100 WBC (Bld) 32.6 % See Below IE-Rvdojvk-M estConductor [facility] [address] Work Phone: Comment on above: Reference Range: 13. 0 - 44.0 MCHC (RBC) [Mass/Vol] 31.2 g/dL below low threshold See Below RW-Mlytgfz-J estlaFilement [facility] [address] Work Phone: Comment on above: Reference Range: 32. 0 - 36.0 MCV (RBC) [Entitic vol] 99 fL 80 - 100 DA-Mlhbgfk-A estlaFilement [facility] [address] Work Phone: [phone] Monocytes/100 WBC (Bld) 12.4 % 2.0 - 10.0 KG-Wnftlez-B estlaFilement [facility] [address] Work Phone: [phone] Neutrophils/100 WBC (Bld) 50.5 % See Below LN-Pfezoqc-S estlabenedicto [facility] [address] Work Phone: [phone] Comment on above: Reference Range: 40. 0 - 80.0 Platelets (Bld) [#/Vol] 331 10*3/uL 150 - 450 VQ-Nqpueit-U antonia [facility] [address] Work Phone: [phone] RBC (Bld) [#/Vol] 4.10 {x10E12/L} See Below MG -Urology-W antonia [facility] [address] Work Phone: [phone] Comment on above: Reference Range: 4.0 0 - 5.20 WBC (Bld) [#/Vol] 3.9 10*3/uL below low threshold 4.4 - 11.3 LT-Bovxmlo-Y antonia [facility] [address] Work Phone: [phone] Complete Blood Count + Differential 0.06 {x10E9/L} See Below VP-Fmmpavy-H ninosdbenedicto [facility] [address] Work Phone: [phone] Comment on above: Reference Range: 0.0 0 - 0.10 Complete Blood Count + Differential 0.10 {x10E9/L} See Below ZD-Gqmnnlb-M ninosdbenedicto [facility] [address] Work Phone: [phone] Comment on above: Reference Range: 0.0 0 - 0.70 Complete Blood Count + Differential 0.48 {x10E9/L} See Below BO-Ztwicno-M ninosdbenedicto [facility] [address] Work Phone: Comment on above: Reference Range: 0.1 0 - 1.00 Complete Blood Count + Differential 1.26 {x10E9/L} See Below JN-Fmbsmmi-T antonia [facility] [address] Work Phone: Comment on above: Reference Range: 1.2 0 - 4.80 Complete Blood Count + Differential 1.96 {x10E9/L} See Below UY-Yjlagcp-U antonia [facility] [address] Work Phone: Comment on above: Reference Range: 1.2 0 - 7.70 Complete Blood Count + Differential 2.6 % 0.0 - 6.0 WL-Ugyoqqg-I [facility] [address] Work Phone: Complete Blood Count + Differential 0.3 % 0.0 - 0.9 HR[facility]snki[facility] [address] Work Phone: Comment on above: Immature Granulocyte Count (IG) includes promyelocytes, myelocytes and metamyelocytes but does not include bands. Percent differential counts (%) should be interpreted in the context of the absolute cell counts (cells/L). Complete Blood Count + Differential 0.0 {/100_WBC} 0.0-0.0 YX[facility]Iseseae[facility]P [facility] [address] Work Phone: FOLATE, SERUMon 07-30-2023 Folate [Mass/Vol] ng/mL Normal >5.0 [facility] Comment on above: Result Comment: Low <3.4 Borderline 3.4-5.0 Normal >5.0 . Biotin interference may cause falsely elevated results. Patients taking a Biotin dose of up to 5 mg/day should refrain from taking Biotin for 24 hours before sample collection. Providers may contact their local laboratory for further information. Performed By: #### F OLA2 #### [facility] [address] [place] [address] Folate, Serumon 07-30-2023 Folate [Mass/Vol] ng/mL >5.0 MG-Urol ogy-W [facility] [address] Work Phone: Comment on above: Low <3.4Borderline 3 .4-5.0Normal >5.0. Biotin interference may cause falsely elevated results. Patients taking a Biotin dose of up to 5 mg/day should refrain from taking Biotin for 24 hours before sample collection. Providers may contact their local laboratory for further information. IRON + TIBCon 07-30-2023 % SATURATION 13 % Low 25 - 45 [facility] Comment on above: Performed By: #### I RONT #### [facility] [address] [place] [address] Iron [Mass/Vol] 58 ug/dL Normal 35 - 150 [facility] Comment on above: Performed By: #### I RONT #### [facility] [address] [place] [address] TIBC 437 ug/dL Normal 240 - 445 [facility] Comment on above: Performed By: #### Carlo MCCRACKEN #### [facility] [address] [place] [address] Laboratory - Chemistry and C hemistry - challengeon 07-30-2023 Albumin BCP dye [Mass/Vol] 4.5 g/dL 3.4 - 5.0 DC-Vfbmlzh-A [place] [facility] [address] Work Phone: [phone] ALP [Catalytic activity/Vol] 86 U/L 33 - 136 OP-Gebdiuz-F [place] 6144501 Work Phone: [phone] ALT With P-5'-P [Catalytic activity/Vol] 32 U/L 7 - 45 QU-Rtgufry-K [place] [facility] [address] Work Phone: Comment on above: Patients treated wit h Sulfasalazine may generate falsely decreased results for ALT. Anion gap [Moles/Vol] 12 mmol/L 10 - 20 CK-Bqzugws-P [place] [facility] [address] Work Phone: AST With P-5'-P [Catalytic activity/Vol] 28 U/L 9 - 39 YY-Wzpozrs-E [place] [facility] [address] Work Phone: Bilirubin [Mass/Vol] 0.3 mg/dL 0.0 - 1.2 MG-U rology-W [place] [facility] [address] Work Phone: Calcium [Mass/Vol] 9.7 mg/dL 8.6 - 10.6 MG-Uro logy-W [place] [facility] [address] Work Phone: Chloride [Moles/Vol] 105 mmol/L 98 - 107 MG-U rology-W [place] [facility] [address] Work Phone: CO2 [Moles/Vol] 31 mmol/L 21 - 32 [facility] [address] Work Phone: Creatinine [Mass/Vol] 0.53 mg/dL See Below LU-Uvhcxwi-E [facility] [address] Work Phone: Comment on above: Reference Range: 0.5 0 - 1.05 Glucose [Mass/Vol] 77 mg/dL 74 - 99 MG-Uro logy-W estlabenedicto [facility] [address] Work Phone: Iron [Mass/Vol] 58 ug/dL 35 - 150 MG-Urolog y-W [place] 4292701 Work Phone: Iron binding capacity [Mass/Vol] 437 ug/dL 240 - 445 SI-Oabouvt-T [place] 4292701 Work Phone: Potassium [Moles/Vol] 4.0 mmol/L 3.5 - 5.3 BR-Esenlfi-X [place] 2863501 Work Phone: Protein [Mass/Vol] 7.1 g/dL 6.4 - 8.2 MG-Uro logy-W [place] 1048101 Work Phone: Sodium [Moles/Vol] 144 mmol/L 136 - 145 MG-Uro logy-W [place] 1048101 Work Phone: Urea nitrogen [Mass/Vol] 14 mg/dL 6 - 23 XE-Qlwtlyf-H [place] 1048101 Work Phone: MAGNESIUMon 07-30-2023 Magnesium [Mass/Vol] 2.55 mg/dL High 1.60 - 2.40 [facility] Comment on above: Performed By: #### M G #### [facility] [address] [place] [address] Magnesium, Serumon 3 Magnesium [Mass/Vol] 2.55 mg/dL above high threshold See Below BV-[facility]jeoxtv[facility] [address] Work Phone: Comment on above: Reference Range: 1.6 0 - 2.40 No Panel Informationon 07-30 >90 >90 TI-Czasoye-Z [place] [id number] Work Phone: Comment on above: CALCULATIONS OF LEW MATED GFR ARE PERFORMED USING THE 2020 CKD-EPI STUDY REFIT EQUATION WITHOUT THE RACE VARIABLE FOR THE IDMS-TRACEABLE CREATININE METHODS.https://jasn.asnjournals.org/content//ASN .7443740254 13 % below low threshold 25 - 45 LO-Noqijmb-C [place] [facility] [address] Work Phone: VITAMIN B12on 07-30-2023 Cobalamin (Vitamin B12) [Mass/Vol] 391 pg/mL Normal 211 - 911 [facility] Comment on above: Performed By: #### V TB12 #### [facility] [address] [place] [address] Vitamin B12, Serumon 023 Cobalamin (Vitamin B12) [Mass/Vol] 391 pg/mL 211 - 911 OP-Npmvdxk-P [place] [facility] [address] Work Phone: IO UA (automated w/o microsc opy)on 07-29-2023 Protein (U) [Mass/Vol] Negative SZ-Qqnsbpa-S [place] [facility] [address] Work Phone: IO UA (automated w/o microscopy) Negative QG-Phvxrhl-V [place] [facility] [address] Work Phone: IO UA (automated w/o microscopy) Normal (0.2-1.0 mg/dl) MG-Urolog y-W [place] [facility] [address] Work Phone: IO UA (automated w/o microscopy) 6.0 1 WT-Asaxlui-X [place] [facility] [address] Work Phone: IO UA (automated w/o microscopy) 1.020 1 CQ-Hfpyvto-P [place] [facility] [address] Work Phone: IO UA (automated w/o microscopy) Clear PF-Cwtqzzh-W [place] [facility] [address] Work Phone: IO UA (automated w/o microscopy) Yellow HZ-Oyumvrr-F [place] [facility] [address] Work Phone: Office Visit ([facility])o n 07-29-2023 Follow-up visit Diagnoses/Problems [...] Currently, NTF x0. Her family member near [place] recently . Refer to allergies section of [...] appointment. She could also contact us via [employer] after EPIC transition. F/u 6 months. All [...] Currently, NTF x0. Her family member near [place] recently . Refer to allergies section of [...] (U) PATIENT: ANCA HSU LOCATION: C1266 BILL#: [id number] : 62 AGE: SEX: F ORDERED BY: FLIP BARBOSA SOURCE: URINE Abnormal DG-Nuxrqur-I antonia [facility] [address] Work Phone: URINE CULTURE,BACTERIALon URINE CULTURE,BACTERIAL PATIENT: ANCA HSU LOCATION: [facility] BILL#: [id number] : 62 AGE: SEX: F ORDERED BY: [...] DOSE DEPENDENT NS=NONSUSCEPTIBLE X=REPORTED IN ERROR Normal [facility] Comment on above: Performed By: #### U [facility] #### [facility] [address] [place] [address] ECG 12 leadon 05-19-2023 [facility] [employer] IO UA (automated w/o microsc opy)on 01-28-2023 Protein (U) [Mass/Vol] Negative FE-Evvwsww-K estlaStrangeLogic [address] Work Phone: IO UA (automated w/o microscopy) Trace XP-Iegvcix-V estlaFilement [facility] [address] Work Phone: IO UA (automated w/o microscopy) Negative UV-Rqlpdwh-X estlaFilement [facility] [address] Work Phone: IO UA (automated w/o microscopy) Normal (0.2-1.0 mg/dl) MG-Urolog y-W estlaStrangeLogic [address] Work Phone: IO UA (automated w/o microscopy) 6.0 1 UL-Kslgyma-K Phonez[employer] CommunicationslaFilement [facility] [address] Work Phone: IO UA (automated w/o microscopy) 1.025 1 TE-Tgaleju-O estlaFilement [facility] [address] Work Phone: IO UA (automated w/o microscopy) Clear JH-Scuqppl-L estlaStrangeLogic [address] Work Phone: IO UA (automated w/o microscopy) Yellow MW-Pajqixu-K [employer] [address] Work Phone: IO Ultrasound, measurement p ost-void resid urine and/or bl cap; no imagon 01-28-2023 IO Ultrasound, measurement post-void resid urine and/or bl cap; no imag 225 mL UQ-Tohqqzb-B [employer] 256[address] Work Phone: Office Visit ([facility])o n 01-28-2023 Follow-up visit Diagnoses/Problems Assessed Incomplete emptying of bladder (788.21) (R33.9) Orders Incomplete emptying of bladder IO UA (automated w/o microscopy); Status:Resulted - Requires Verification,Retrospective By Protocol Authorization; Done: 28Jan2023 10:00AM IO Ultrasound, measurement post-void resid urine and/or bl cap; no imag; Status:Resulted - Requires Verification,Retrospective By Protocol Authorization; Done: [id number] 09:50AM Provider Impressions 1. Stage IV prolapse, [...] OF RIGHT HIP. COMPARISON: None. ACCESSION NUMBER(S): [id number] ORDERING CLINICIAN: NORMAN DURON FINDINGS: Four views right hip: Status post right total hip arthroplasty There is good position of the acetabular prosthesis in the [place] acetabulum. There is good position of the [...] Electronically signed by: KISHORE MEZA MD Normal [facility] Radiologyon 01-20-2023 XR Pelvis and Hip - left 2 Views Normal TV-Odslfkz-V joke [place] 114[address] Work Phone: Order Reconciliationon 01-12 Order Reconciliation [...] Anusol Suppositories 51% rectal suppository (obsolete) biotin 81442 microgram(s) orally once a day 04-Jan-2023 15:12 biotin 21448 microgram(s) orally once a day 04-Jan-2023 15:12 [...] Urineon 01-05-2023 Bacteria identified Cx Nom (U) [facility] [address] Work Phone: Laboratory - Chemistry and C hemistry - challengeon 01-05-2023 Anion gap [Moles/Vol] 11 mmol/L 10 - 20 LV-Ptadgtl-V [place] [facility] [address] Work Phone: Calcium [Mass/Vol] 9.1 mg/dL 8.6 - 10.3 MG-Uro logy-W [place] 2863501 Work Phone: Chloride [Moles/Vol] 106 mmol/L 98 - 107 MG-U rology-W an[place] 6144501 Work Phone: CO2 [Moles/Vol] 26 mmol/L 21 - 32 MG-Urolog y-W antonia [facility] [address] Work Phone: Creatinine [Mass/Vol] 0.47 mg/dL below low threshold See Below EO-Mknhjik-U ninosdke [place] 6144501 Work Phone: Comment on above: Reference Range: 0.5 0 - 1.05 Glucose [Mass/Vol] 164 mg/dL above high threshold 74 - 99 IE-Vqbiknx-Z [place] 6144501 Work Phone: Potassium [Moles/Vol] 3.4 mmol/L below low threshold 3.5 - 5.3 ZS-Eqigsdx-T [place] 4292701 Work Phone: Sodium [Moles/Vol] 140 mmol/L 136 - 145 MG-Uro logy-W [place] 6144501 Work Phone: Urea nitrogen [Mass/Vol] 14 mg/dL 6 - 23 CT-Yyqwmra-F [place] 6144501 Work Phone: Laboratory - Hematology and Cell countson 01-05-2023 Erythrocyte distribution width (RBC) [Ratio] 12.6 % See Below RP-Rvhnuhn-C ninosdbenedicto [place] [id number] Work Phone: Comment on above: Reference Range: 11. 5 - 14.5 Hematocrit (Bld) [Volume fraction] 35.4 % below low threshold See Below IU-Vqrncvj-M estlabenedicto [place] [id number] Work Phone: Comment on above: Reference Range: 36. 0 - 46.0 Hemoglobin (Bld) [Mass/Vol] 11.3 g/dL below low threshold See Below XK-Qeixrvt-E estlabenedicto [place] [id number] Work Phone: Comment on above: Reference Range: 12. 0 - 16.0 MCHC (RBC) [Mass/Vol] 31.9 g/dL below low threshold See Below KB-Ivsonej-S [place] [id number] Work Phone: Comment on above: Reference Range: 32. 0 - 36.0 MCV (RBC) [Entitic vol] 95 fL 80 - 100 JM-Npzpxgx-I estsdbenedicto [place] [place] [id number] Work Phone: Platelets (Bld) [#/Vol] 355 10*3/uL 150 - 450 KN-Rffivnc-V estlabenedicto [place] 6144501 Work Phone: RBC (Bld) [#/Vol] 3.73 {x10E12/L} below low threshold See Below JI-Rzbaseu-R estlaJasmine [place] [id number] Work Phone: Comment on above: Reference Range: 4.0 0 - 5.20 WBC (Bld) [#/Vol] 5.2 10*3/uL 4.4 - 11.3 [facility] [address] Work Phone: No Panel Informationon 01-05 0.0 {/100_WBC} 0.0 - 0.0 MG-Urology -W [place] [id number] Work Phone: >90 >90 AZ-Lzdjzed-A [place] 6144501 Work Phone: Comment on above: CALCULATIONS OF LEW MATED GFR ARE PERFORMED USING THE 2020 CKD-EPI STUDY REFIT EQUATION WITHOUT THE RACE VARIABLE FOR THE IDMS-TRACEABLE CREATININE METHODS.https://jasn.asnjournals.org/content//ASN .9036792117 https://UHMUSEXPRDWE [email or web address] 80/keo/jammieweb.dll ?RetrieveTestByDateTime?Pa ksbmzAW=[id number]&Date=&Time=13%3a43%3a42% 3a00&TestType=ECG&Site=12& OutputType=PDF&Ext=PDF LR-Iekkevm-B [place] [address] Work Phone: Normal sinus rhythm MG-Ur ology-W [place] [address] Work Phone: Abnormal CJ-Czoaczw-Q [place] [address] Work Phone: 401 1 HV-Wuhbbeo-L [place] [address] Work Phone: [phone] TU-Awlicmu-Z [place] [address] Work Phone: 210 1 EA-Ibhmjyq-J [place] [address] Work Phone: 158 1 WT-Xxymowo-P [place] [address] Work Phone: 223 1 VX-Ubbmsis-Z [place] [address] Work Phone: 15 1 XN-Akytrip-A [place] [address] Work Phone: 29 1 HA-Yaxbuwa-F [place] [address] Work Phone: 67 1 VP-Ninoudq-F [place] [address] Work Phone: 71 1 LU-Ffeuvip-T [place] [address] Work Phone: 430 1 XG-Kotnpps-L [place] [address] Work Phone: 348 1 AA-Lbbvrgo-O [place] [address] Work Phone: 78 1 UK-Vusxpky-J [place] [address] Work Phone: 130 1 YY-Cgivruc[place] [address] Work Phone: [phone] 1 ML-Cmzoqjg[place] [address] Work Phone: Office Visit ([facility])o n 11-26-2022 Follow-up visit Diagnoses/Problems [...] palpation of the right sided levator muscles. HR LEADER was negative with urethral hypermobility. We discussed [...] No depression. (more content not included)... Normal [employer] 07-02-2022 [facility] HNO ID: [id number] Author: RT Paola(R) Service: Radiology Author Type: [...] RT Paola(R) July 01, 2022 11:13 PM [facility] ED NOTEon 07-02-2022 ED NOTE HNO ID: [id number] Author: Darlyn Peraza RN Service: ? Author Type: Registered Nurse Type: ED Notes Filed: 07/02/2022 1:15 AM Note Text: Discharge to home with family, finger splint applied to right hand,will follow up with PCP and return sooner if condition worsens. No further questions at this time [facility] ED NOTE HNO ID: [id number] Author: Darlyn Peraza RN Service: ? Author Type: Registered Nurse Type: ED Notes Filed: 07/02/2022 12:35 AM Note Text: Cleaned wound and placed bacitracin on and Band-Aids. [facility] ED NOTE HNO ID: [id number] Author: Libby Peterson RN Service: ? Author Type: Registered Nurse Type: ED Notes Filed: 07/01/2022 11:03 PM Note Text: Patient arrived via private car with complaints of dog bite, to left and right hand. Patient own dog bite her when she was attempting to place medicine in dogs ear. [facility] ED PROV NOTEon 07-02-2022 ED PROV NOTE HNO ID: [id number] Author: Patricia Mendiola MD Service: ? Author [...] file ALLERGIES Allergen Reactions Demoral [Meperidine] Unknown Dyer Nut Rash, Hives, Itching, Shortness of Breath [...] Left hand: No foreign body or fracture. Metal Cabinet Finisher: PSCB Transcribe Date/Time: Jul 02 2022 12:57A Dictated by : CARMENZA WOODWARD MD This examination was interpreted and the report reviewed and electronically signed by: CARMENZA WOODWARD MD on Jul 02 2022 12:59AM EST XR HAND GENERAL 3V PA/LAT/OBL LEFT Final Result IMPRESSION: 1. Right hand: No foreign body or fracture. 2. Left hand: No foreign body or fracture. Metal Cabinet Finisher: PSCKeerthi Transcribe Date/Time: Jul 02 2022 12:57A [...] stable SIGNATURE: (more content not included)... Normal [facility] XR HAND 3V PA/LAT/OBL LTon 0 07-02-2022 [...] Left hand: No foreign body or fracture. Metal Cabinet Finisher: Recroup Transcribe Date/Time: Jul 02 2022 12:57A Dictated by : CARMENZA WOODWARD MD This examination was interpreted and the report reviewed and electronically signed by: CARMENZA WOODWARD MD on Jul 02 2022 12:59AM EST [id number] [facility] XR HAND 3V PA/LAT/OBL RTon 0 [...] Left hand: No foreign body or fracture. Metal Cabinet Finisher: [employer]roup Transcribe Date/Time: Jul 02 2022 12:57A Dictated by : CARMENZA WOODWARD MD This examination was interpreted and the report reviewed and electronically signed by: CARMENZA WOODWARD MD on Jul 02 2022 12:59AM EST [id number] Normal [facility] IO UA (automated w/o microsc opy)on 05-28-2022 Protein (U) [Mass/Vol] Negative CB-Hojyrcm-A est[place] [employer] [address] Work Phone: IO UA (automated w/o microscopy) Negative YA[facility]vcidy[facility] [address] Work Phone: IO UA (automated w/o microscopy) Normal (0.2-1.0 mg/dl) [facility] [address] Work Phone: IO UA (automated w/o microscopy) 5.5 1 GF-Azoztac-U estsdFilement [facility] [address] Work Phone: IO UA (automated w/o microscopy) 1.030 1 UQ[facility]Orntwsw[facility]O [facility] [address] Work Phone: IO UA (automated w/o microscopy) Clear ZJ-Ruvljml[facility]L [facility] [address] Work Phone: IO UA (automated w/o microscopy) Yellow QV-Lrsgnxl-M [employer] [address] Work Phone: Tobacco Screening.on 022 Fall risk assessment b) One or more fall s in the last year MG-Neurology -[place] [facility] Work Phone: Tobacco use status CPHS b) No MG-Neurology -[place] [facility] Work Phone: Complete Blood Count + Diffe rentialon 04-13-2022 Basophils/100 WBC (Bld) 1.3 % 0.0 - 2.0 LL-Artgokc-F estlaStrangeLogic [address] Work Phone: Erythrocyte distribution width (RBC) [Ratio] 12.3 % See Below FV-Mxnipgk-M [facility] [address] Work Phone: Comment on above: Reference Range: 11. 5 - 14.5 Hematocrit (Bld) [Volume fraction] 34.2 % below low threshold See Below IN-Yysdygh-L [facility]Big [facility] [address] Work Phone: [phone] Comment on above: Reference Range: 36. 0 - 46.0 Hemoglobin (Bld) [Mass/Vol] 11.4 g/dL below low threshold See Below ER-Moipbtw-P Phonez[facility] CommunicationsBig [facility] [address] Work Phone: [phone] Comment on above: Reference Range: 12. 0 - 16.0 Lymphocytes/100 WBC (Bld) 24.0 % See Below EU-Xqhylfz-K [facility]inoBig [facility] [address] Work Phone: [phone] Comment on above: Reference Range: 13. 0 - 44.0 MCHC (RBC) [Mass/Vol] 33.3 g/dL See Below YK-Iqkyyir-F [facility] [address] Work Phone: [phone] Comment on above: Reference Range: 32. 0 - 36.0 MCV (RBC) [Entitic vol] 95 fL 80 - 100 NS-Olqbogf-U Phone[facility] CommunicationsBig [facility] [address] Work Phone: Monocytes/100 WBC (Bld) 10.3 % 2.0 - 10.0 PW-Czfljuf-I [facility] Work Phone: Neutrophils/100 WBC (Bld) 62.1 % See Below ML-Qnhkytq-N Phonez[facility] CommunicationsBig [facility] [address] Work Phone: Comment on above: Reference Range: 40. 0 - 80.0 Platelets (Bld) [#/Vol] 232 10*3/uL 150 - 450 CM-Ebkmdls-C Phone[facility] CommunicationsBig [facility] [address] Work Phone: RBC (Bld) [#/Vol] 3.59 {x10E12/L} below low threshold See Below AG-Euppwoi-C estsdbenedicto [facility] [address] Work Phone: Comment on above: Reference Range: 4.0 0 - 5.20 WBC (Bld) [#/Vol] 4.8 10*3/uL 4.4 - 11.3 MG-Uro logy-W [facility] [address] Work Phone: [phone] Complete Blood Count + Differential 0.06 {x10E9/L} See Below VV-Srkwmea-V [facility] [address] Work Phone: Comment on above: Reference Range: 0.0 0 - 0.10 Complete Blood Count + Differential 0.09 {x10E9/L} See Below DX-Hsteijj-Y [facility] [address] Work Phone: Comment on above: Reference Range: 0.0 0 - 0.70 Complete Blood Count + Differential 0.49 {x10E9/L} See Below FY-Iieymph-S [facility] [address] Work Phone: Comment on above: Reference Range: 0.1 0 - 1.00 Complete Blood Count + Differential 1.14 {x10E9/L} below low threshold See Below YZ-Igcjtzj-D [facility] [address] Work Phone: Comment on above: Reference Range: 1.2 0 - 4.80 Complete Blood Count + Differential 2.95 {x10E9/L} See Below SB-Wcekfun-M [facility] [address] Work Phone: Comment on above: Reference Range: 1.2 0 - 7.70 Complete Blood Count + Differential 1.9 % 0.0 - 6.0 RP-Hqxqtpg-B [facility] [address] Work Phone: Complete Blood Count + Differential 0.4 % 0.0 - 0.9 MU-Iihguji-Z [place] [address] Work Phone: Comment on above: Immature Granulocyte Count (IG) includes promyelocytes, myelocytes and metamyelocytes but does not include bands. Percent differential counts (%) should be interpreted in the context of the absolute cell counts (cells/L). Complete Blood Count + Differential 0.0 {/100_WBC} 0.0-0.0 IA-Fxdsinn-J [facility] [address] Work Phone: Hepatic Function Panelon Albumin BCP dye [Mass/Vol] 4.2 g/dL 3.4 - 5.0 AJ-Ifxosov-I [place] 2863501 Work Phone: ALP [Catalytic activity/Vol] 77 U/L 33 - 136 MY-Eqqogwp-S [place] 1048101 Work Phone: ALT With P-5'-P [Catalytic activity/Vol] 67 U/L above high threshold 7 - 45 EP-Heugogo-E [place]laJ[place] 2863501 Work Phone: Comment on above: Patients treated wit h Sulfasalazine may generate falsely decreased results for ALT. AST With P-5'-P [Catalytic activity/Vol] 50 U/L above high threshold 9 - 39 NZ-Cqdrpgg-Z [facility] [address] Work Phone: Bilirubin [Mass/Vol] 0.4 mg/dL 0.0 - 1.2 MG-U rology-W [place] 1048101 Work Phone: Bilirubin.direct [Mass/Vol] 0.1 mg/dL 0.0 - 0.3 PD-Zntffog-V estAndrea [place] 4292701 Work Phone: Protein [Mass/Vol] 6.5 g/dL 6.4 - 8.2 MG-Uro logy-W [place] 1048101 Work Phone: Tobacco Screening.on Fall risk assessment a) No falls within the last year IA-Ctshhsd-A arma MAC2 303 Work Phone: Tobacco use status CPHS b) No LR-Zmzkuyz-C arma MAC2 303 Work Phone: Tobacco Screening.on Fall risk assessment b) One or more fall s in the last year YQ-Frvgwoh-T arma MAC2 303 Work Phone: Tobacco use status CPHS b) No XB-Xjaoxbu-Q arma MAC2 303 Work Phone: IO UA (automated w/o microsc opy)on 02-19-2022 Protein (U) [Mass/Vol] Negative IE-Mvapqfh-P [place]And[place] 4292701 Work Phone: IO UA (automated w/o microscopy) Negative JX-Xrulboq-L [place] 1048101 Work Phone: IO UA (automated w/o microscopy) Normal (0.2-1.0 mg/dl) MG[facility]rolog y[facility] [address] Work Phone: IO UA (automated w/o microscopy) 6.0 1 TP-Uxtwbbj-P [place] 1048101 Work Phone: IO UA (automated w/o microscopy) 1.030 1 LN-Wgrysax-C [facility] [address] Work Phone: IO UA (automated w/o microscopy) (+)small - 15 QS-Ebluqux-S [place] 1048101 Work Phone: IO UA (automated w/o microscopy) Clear RD-Mykkutu-S [place] [address] Work Phone: IO UA (automated w/o microscopy) Yellow AX-Ifcbpav-A [place] 1048101 Work Phone: No Panel Informationon 02-02 DQ-Sgwnvwc-P arma MAC2 303 Work Phone: [email or web address]?={[email or web address] [id number]} UB-Wwnqhdq-W arma MAC2 303 Work Phone: GW-Ipmkeer-P arma MAC2 303 Work Phone: Coronavirus 2019 RNA by PCR, Screening Asymptomticon 02-01-2022 Coronavirus 2019 RNA by PCR, Screening Asymptomtic Not detected Normal See Below HU-Mrawcuz-E arma MAC2 303 Work Phone: Comment on above: SOURCE: Nasal, Nasop haryngealReference Range: Not Detected.This test has received FDA Emergency Use Authorization (EUA) and has been verified by [facility]. This test is only authorized for the duration of time that circumstances exist to justify the authorization of the emergency use of in vitro diagnostic tests for the detection of SARS-CoV-2 virus and/or diagnosis of COVID-19 infection under section 564(b)(1) of the Act, 21 U.S.C. 360bbb-3(b)(1), unless the authorization is terminated or revoked sooner. [facility] is certified under CLIA-88 as qualified to perform high complexity testing. Testing is performed in the [facility] laboratory located at [address] [place] [address].SARS-CoV-2/Flu/RSV Multiplex Test: Fact sheet for providers: https://www.fda.gov/media/210552/downloadFact sheet for patients: https://www.fda.gov/media/251955/download Tobacco Screening.on 022 Tobacco use status CP b) No US-Eeaimdl-R arma MAC2 303 Work Phone: Laboratory - Chemistry and C hemistry - challengeon 12-10-2021 Anion gap [Moles/Vol] 14 mmol/L 10 - 20 GT-Qrhanlv-W [employer] [address] Work Phone: Calcium [Mass/Vol] 9.4 mg/dL 8.6 - 10.6 MG-Uro logy-W XVionics [facility] [address] Work Phone: Chloride [Moles/Vol] 107 mmol/L 98 - 107 MG-U rology-W [employer] [facility] [address] Work Phone: CO2 [Moles/Vol] 25 mmol/L 21 - 32 MG-Urolog y-W [place] [address] Work Phone: Creatinine [Mass/Vol] 0.50 mg/dL See Below ER-Acjwqxg-R [employer] [place] 6144501 Work Phone: Comment on above: Reference Range: 0.5 0 - 1.05 Glucose [Mass/Vol] 73 mg/dL below low threshold 74 - 99 RI-Nwhjrdk-B [facility] [address] Work Phone: Potassium [Moles/Vol] 4.3 mmol/L 3.5 - 5.3 QY-Fitdfkz-L [place] 1048101 Work Phone: Sodium [Moles/Vol] 142 mmol/L 136 - 145 MG-Uro logy-W [place] 1048101 Work Phone: Urea nitrogen [Mass/Vol] 16 mg/dL 6 - 23 US-Beiuhkz-J [place] [address] Work Phone: Mumps IgG Antibodyon 022 MuV IgG (S) [Titer] Positive MG-Ur ology-W [place] [address] Work Phone: Comment on above: INTERPRETATIVE COMME [...] assays. No Panel Informationon 12-10 >90 >90 WL-Rytxoub-P [facility] [address] Work Phone: Comment on above: CALCULATIONS OF LEW MATED GFR ARE PERFORMED USING THE 2020 CKD-EPI STUDY REFIT EQUATION WITHOUT THE RACE VARIABLE FOR THE IDMS-TRACEABLE CREATININE METHODS.https://jasn.asnjournals.org/content/early//ASN .3256224000 Please click on the link to view the study images Normal HW-Fhgxoyk-W [facility] [address] Work Phone: Rubella IgG Antibodyon 12-10 Rubella virus IgG IA Ql Positive VW-Bwmvewf-Y [facility] [address] Work Phone: Comment on above: INTERPRETATIVE COMME [...] IgG IA Ql (S) Positive MG-Urol ogy-W [facility] [address] Work Phone: Comment on above: INTERPRETATIVE COMME [...] GI UPPER GI W SBFT Patient Name: NACA HSU STUDY: Double-contrast upper GI series with small-bowel follow-through dated 12/01/2021. INDICATION: Pain. COMPARISON: None. ACCESSION NUMBER(S): [id number] ORDERING CLINICIAN: SOLOMON WATKINS TECHNIQUE: Item Repair Manager radiograph of the abdomen was obtained. The [...] above. Electronically signed by: CHRISTO LEONARD MD [facility] No Panel Informationon 12-01 Normal KJ-Mjiajga-F arma MAC2 303 Work Phone: Blood Pressure Cuff Sizeon 0 11-27-2021 Blood Pressure Cuff Size Adult JC-Fedgfpa-T arma MAC2 303 Work Phone: Complete Blood Count + Diffe rentialon 11-27-2021 Basophils/100 WBC (Bld) 1.3 % 0.0 - 2.0 IW-Fgnakei-H arma MAC2 303 Work Phone: Erythrocyte distribution width (RBC) [Ratio] 12.3 % See Below QN-Kjxreqj-G arma MAC2 303 Work Phone: Comment on above: Reference Range: 11. 5 - 14.5 Hematocrit (Bld) [Volume fraction] 38.7 % See Below JC-Ucguknz-U arma MAC2 303 Work Phone: Comment on above: Reference Range: 36. 0 - 46.0 Hemoglobin (Bld) [Mass/Vol] 12.3 g/dL See Below KN-Cfzesvf-L arma MAC2 303 Work Phone: Comment on above: Reference Range: 12. 0 - 16.0 Lymphocytes/100 WBC (Bld) 23.8 % See Below TA-Jgnupst-Z arma MAC2 303 Work Phone: Comment on above: Reference Range: 13. 0 - 44.0 MCHC (RBC) [Mass/Vol] 31.8 g/dL below low threshold See Below GR-Bpgxlxg-M arma MAC2 303 Work Phone: Comment on above: Reference Range: 32. 0 - 36.0 MCV (RBC) [Entitic vol] 100 fL 80 - 100 RE-Cyfihnc-F arma MAC2 303 Work Phone: Monocytes/100 WBC (Bld) 8.9 % 2.0 - 10.0 PC-Ursklsx-S arma MAC2 303 Work Phone: Neutrophils/100 WBC (Bld) 65.4 % See Below PL-Cisyshm-I arma MAC2 303 Work Phone: Comment on above: Reference Range: 40. 0 - 80.0 Platelets (Bld) [#/Vol] 239 10*3/uL 150 - 450 SV-Wmfkvns-O arma MAC2 303 Work Phone: RBC (Bld) [#/Vol] 3.86 {x10E12/L} below low threshold See Below ME-Gncfyoe-J arma MAC2 303 Work Phone: Comment on above: Reference Range: 4.0 0 - 5.20 WBC (Bld) [#/Vol] 4.5 10*3/uL 4.4 - 11.3 MG-Moni shubham-P arma MAC2 303 Work Phone: Complete Blood Count + Differential 0.06 {x10E9/L} See Below DG-Jfpkxkf-F arma MAC2 303 Work Phone: Comment on above: Reference Range: 0.0 0 - 0.10 Complete Blood Count + Differential 0.02 {x10E9/L} See Below YH-Bxmebed-Q arma MAC2 303 Work Phone: Comment on above: Reference Range: 0.0 0 - 0.70 Complete Blood Count + Differential 0.40 {x10E9/L} See Below IG-Rizhtih-P arma MAC2 303 Work Phone: Comment on above: Reference Range: 0.1 0 - 1.00 Complete Blood Count + Differential 1.07 {x10E9/L} below low threshold See Below CN-Dcubqyd-K arma MAC2 303 Work Phone: Comment on above: Reference Range: 1.2 0 - 4.80 Complete Blood Count + Differential 2.93 {x10E9/L} See Below PL-Tohojxi-T arma MAC2 303 Work Phone: Comment on above: Reference Range: 1.2 0 - 7.70 Complete Blood Count + Differential 0.4 % 0.0 - 6.0 ED-Qomlwpp-X arma MAC2 303 Work Phone: Complete Blood Count + Differential 0.2 % 0.0 - 0.9 AB-Yktvfgy-W arma MAC2 303 Work Phone: Comment on above: Immature Granulocyte Count (IG) includes promyelocytes, myelocytes and metamyelocytes but does not include bands. Percent differential counts (%) should be interpreted in the context of the absolute cell counts (cells/L). Complete Blood Count + Differential 0.0 {/100_WBC} 0.0-0.0 EO-Fxuzrig-S arma MAC2 303 Work Phone: Copper, Serumon 11-27-2021 Copper [Mass/Vol] 88 ug/dL 80-158 MG-Surg preeti-P arma MAC2 303 Work Phone: Comment on above: Detection Limit = 5T est(s) 538251-Phofyh, Serum or Plasma; 721753-Ghiu, Plasma or Serumwas developed and its performance [...] dye [Mass/Vol] 4.6 g/dL 3.4 - 5.0 TP-Sfrpznp-E arma MAC2 303 Work Phone: ALP [Catalytic activity/Vol] 86 U/L 33 - 136 OZ-Zounfdl-G arma MAC2 303 Work Phone: ALT With P-5'-P [Catalytic activity/Vol] 74 U/L above high threshold 7 - 45 PU-Stpzebx-G arma MAC2 303 Work Phone: Comment on above: Patients treated wit h Sulfasalazine may generate falsely decreased results for ALT. Anion gap [Moles/Vol] 15 mmol/L 10 - 20 UY-Auccgfa-H arma MAC2 303 Work Phone: AST With P-5'-P [Catalytic activity/Vol] 54 U/L above high threshold 9 - 39 BM-Xedvdjq-Z arma MAC2 303 Work Phone: Comment on above: MILD HEMOLYSIS DETEC ORION. The result may be falsely elevated due tohemolysis or other interferents. Clinical correlation is recommended.Repeat testing may be considered. Bilirubin [Mass/Vol] 0.4 mg/dL 0.0 - 1.2 MG-S urgery-P arma MAC2 303 Work Phone: Calcium [Mass/Vol] 9.6 mg/dL 8.6 - 10.6 MG-Moni suhbham-P arma MAC2 303 Work Phone: Chloride [Moles/Vol] 105 mmol/L 98 - 107 MG-S urgery-P arma MAC2 303 Work Phone: CO2 [Moles/Vol] 27 mmol/L 21 - 32 MG-Surger y-P arma MAC2 303 Work Phone: Creatinine [Mass/Vol] 0.54 mg/dL See Below XM-Rpjyceh-L arma MAC2 303 Work Phone: Comment on above: Reference Range: 0.5 0 - 1.05 Glucose [Mass/Vol] 117 mg/dL above high threshold 74 - 99 LQ-Rvkwpgb-K arma MAC2 303 Work Phone: Iron [Mass/Vol] 107 ug/dL 35 - 150 MG-Surger y-P arma MAC2 303 Work Phone: Comment on above: MILD HEMOLYSIS DETEC ORION. The result may be falsely elevated due tohemolysis or other interferents. Clinical correlation is recommended.Repeat testing may be considered. Iron binding capacity [Mass/Vol] 366 ug/dL 240 - 445 CA-Oninnwq-U arma MAC2 303 Work Phone: Potassium [Moles/Vol] 4.0 mmol/L 3.5 - 5.3 UG-Znpnepb-K arma MAC2 303 Work Phone: Comment on [...] Phone: Thiamine (Bld) [Mass/Vol] 128 nmol/L 70-180 YP-Jnhcuho-P arma MAC2 303 Work Phone: Comment on [...] developed and its performance characteristics determined by [employer]. It has not been cleared or approved by the US Food and Drug Administration. This test was performed in a CLIA certified laboratory and is intended for clinical purposes.Performed By: [facility] [place] [id number] Director: Kirsten Rg MD Urea nitrogen [Mass/Vol] 15 mg/dL 6 - 23 MK-Bhsfyqi-P arma MAC2 303 Work Phone: Lipid Panelon 11-27-2021 Cholesterol [Mass/Vol] Canceled LW-Imbazhd-Y arma MAC2 303 Work Phone: Comment on [...] Metamizole dosing. Cholesterol in HDL [Mass/Vol] Canceled KY-Sfkgyon-N arma MAC2 303 Work Phone: Comment on above: . AGE VERY LOW LOW N ORMAL HIGH 0-19 Y < 35 < 40 40-45 ---- 20- 24 Y ---- < 40 >45 ---- >24 Y ---- < 40 40-60 >60. Cholesterol in LDL [Mass/Vol] Canceled GB-Tanugau-O arma MAC2 303 Work Phone: Comment on above: . NEAR BORD AGE TE RABLE OPTIMAL HIGH HIGH VERY HIGH 0-19 Y 0 - 109 --- 110-129 >/= 130 ---- 20-24 Y 0 - 119 --- 120-159 >/= 160 ---- >24 Y 0 - 99 100-129 130-159 160-189 >/=190. Cholesterol non HDL [Mass/Vol] Canceled PT-Loeuvbp-R arma MAC2 303 Work Phone: Comment on above: AGE DESIRABLE BORDER LINE HIGH HIGH VERY HIGH 0-19 Y 0 - 119 120 - 144 >/= 145 >/= 160 20-24 Y 0 - 149 150 - 189 >/= 190 ---- >24 Y 30 MG/DL ABOVE LDL CHOLESTEROL GOAL. Triglyceride [Mass/Vol] Canceled ZN-Kxzdvzr-U arma MAC2 303 Work Phone: Comment on [...] prior to Metamizole dosing. Lipid Panel Canceled KA-Afcttbe-R arma MAC2 303 Work Phone: No Panel Informationon 11-27 >90 >90 RC-Oeixziv-G arma MAC2 303 Work Phone: Comment on above: CALCULATIONS OF ELW MATED GFR ARE PERFORMED USING THE 2020 CKD-EPI STUDY REFIT EQUATION WITHOUT THE RACE VARIABLE FOR THE IDMS-TRACEABLE CREATININE METHODS.https://jasn.asnjournals.org/content//ASN .3616314723 29 % 25 - 45 ZY-Ztvirhx-H arma MAC2 303 Work Phone: Parathormone Intact, Serumon 11-27-2021 Parathyrin.intact [Mass/Vol] 37.7 pg/mL See Below LD-Giikpmf-V arma MAC2 303 Work Phone: Comment on above: Reference Range: 18. 5 - 88.0 Prealbumin, Serumon 11-27-19 Prealbumin Nephelometry [Mass/Vol] 18.6 mg/dL See Below GN-Yjnpxca-M arma MAC2 303 Work Phone: Comment on [...] developed and its performance characteristics determined by [facility]. It has not been cleared or approved by the US Food and Drug Administration. This test was performed in a CLIA certified laboratory and is intended for clinical purposes.Performed By: [facility] [place] [address] [id number] Director: Kirsten Rg MD Vitamin A, Serumon [...] was developed and its performance characteristicsdetermined by [employer]. It has not been cleared or approvedby the Food and Drug Administration. Vitamin B12, Serumon 022 Cobalamin (Vitamin B12) [Mass/Vol] pg/mL Abnormal 211 - 911 UU-Rcntijw-E arma MAC2 303 Work Phone: Vitamin B6, Serumon 11-27-19 22 Pyridoxine [Mass/Vol] 160.6 nmol/L above high threshold 20.0-125.0 BE-Qawcewl-K arma MAC2 303 Work Phone: Comment on above: INTERPRETIVE INFORMA TION: Vitamin B6 (Pyridoxal 5-Phosphate)Pyridoxal 5'-phosphate measured in a specimen collected following an 8-hour or overnight fast accurately indicates vitamin B6 nutritional status. Non-fasting specimen concentration reflects recent vitamin intake.This test was developed and its performance characteristics determined by [facility]. It has not been cleared or approved by the US Food and Drug Administration. This test was performed in a CLIA certified laboratory and is intended for clinical purposes.Performed By: [facility] [place] [address] [id number] Director: Kirsten Rg MD Vitamin D 25-Hydroxyon 11-27 25-hydroxyvitamin D3 [Mass/Vol] 36 ng/mL ZX-Uzuynvc-Q arma MAC2 303 Work Phone: Comment on above: .DEFICIENCY: < 20 NG /MLINSUFFICIENCY: 20-29 NG/MLSUFFICIENCY: 30-100 NG/MLTHIS ASSAY ACCURATELY QUANTIFIES THE SUM OFVITAMIN D3, 25-HYDROXY AND VIT D2,25-HYDROXY. Vitamin K, Levelon 2 Phytonadione [Mass/Vol] 0.32 ng/mL 0.10-2.20 CC-Mebgbqt-D arma MAC2 303 Work Phone: Comment on above: Test(s) 795486-Rzhgl in K1was developed and its performance characteristics determinedby [employer]. It has not been cleared or approved by the Foodand Drug Administration. Zinc, Serumon 11-27-2021 Zinc [Mass/Vol] 67 ug/dL 44-115 MG-Surger y-P arma MAC2 303 Work Phone: Comment on above: Detection Limit = 5T est(s) 224443-Bqiwcb, Serum or Plasma; 307269-Stvd, Plasma or Serumwas developed and its performance characteristics determinedby [facility]. It has not been cleared or approved by the Foodand Drug Administration. CT Urography with 3D Volume Rendered Imagingon 10-23-2021 CT Urography with 3D Volume Rendered Imaging Normal VX-Nggkgnk-R estlaFilement [facility] [address] Work Phone: Laboratory - Chemistry and C hemistry - challengeon 10-21-2021 Anion gap [Moles/Vol] 10 mmol/L 10 - 20 LG-Wfksdwp-C estlaFilement [facility] [address] Work Phone: Calcium [Mass/Vol] 9.2 mg/dL 8.6 - 10.6 MG-Uro logy-W Phonezoo CommunicationssdFilement [place] [id number] Work Phone: Chloride [Moles/Vol] 109 mmol/L above high threshold 98 - 107 DA-Kshbfpv-K estlaFilement [place] [id number] Work Phone: CO2 [Moles/Vol] 29 mmol/L 21 - 32 MG-Urolog y-W estlaFilement [facility] [address] Work Phone: Creatinine [Mass/Vol] 0.50 mg/dL See Below BT-Qnhxmnr-V Phonezoo Communicationslake [place] [id number] Work Phone: Comment on above: Reference Range: 0.5 0 - 1.05 Glucose [Mass/Vol] 138 mg/dL above high threshold 74 - 99 VM-Sqtfdig-O estlaFilement [facility] [address] Work Phone: Potassium [Moles/Vol] 4.3 mmol/L 3.5 - 5.3 LS-Ugdpqlp-T estlaFilement [facility] [address] Work Phone: Sodium [Moles/Vol] 144 mmol/L 136 - 145 MG-Uro logy-W [employer] [place] [id number] Work Phone: Urea nitrogen [Mass/Vol] 17 mg/dL 6 - 23 Y[facility]kyen[facility] [address] Work Phone: No Panel Informationon 10-21 >60 >60 QG-Ixmflwo-T estlabenedicto [facility] [address] Work Phone: Comment on above: CALCULATIONS OF LEW MATED GFR ARE PERFORMED USING THE MDRD STUDY EQUATION FOR THE IDMS-TRACEABLE CREATININE METHODS. CLIN CHEM 2007;53:766-72 IO UA (automated w/o microsc opy)on 10-09-2021 Protein (U) [Mass/Vol] Negative GV-Xxufgzy-L estlabenedicto [facility] [address] Work Phone: IO UA (automated w/o microscopy) Negative US-Ctbhbkb-L estsdbenedicto [facility] [address] Work Phone: IO UA (automated w/o microscopy) Normal (0.2-1.0 mg/dl) MG-Urolog y-W estlabenedicto [facility] [address] Work Phone: IO UA (automated w/o microscopy) 6.0 1 JZ-Vqrcyqg-H estlabenedicto [facility] [address] Work Phone: IO UA (automated w/o microscopy) 1.030 1 CK-Ameffcm-P estsdbenedicto [facility] [address] Work Phone: IO UA (automated w/o microscopy) Trace SM-Ytgjmcu-I estlabenedicto [facility] [address] Work Phone: IO UA (automated w/o microscopy) Clear IH-Avdjuhg-J estlabenedicto [facility] [address] Work Phone: IO UA (automated w/o microscopy) Yellow UL-Naegpus-S estlabenedicto [facility] [address] Work Phone: IO Ultrasound, measurement p ost-void resid urine and/or bl cap; no imagon 10-09-2021 IO Ultrasound, measurement post-void resid urine and/or bl cap; no imag 0 mL YK-Quwekig-D estlaFilement [facility] [address] Work Phone: Tobacco Screening.on 021 Fall risk assessment b) One or more fall s in the last year [facility] Work Phone: Tobacco use status CPHS b) No [facility] Work Phone: Hepatic Function Panelon Albumin BCP dye [Mass/Vol] 4.2 g/dL 3.4 - 5.0 ES-Sxurkyo-W [place] [id number] Work Phone: ALP [Catalytic activity/Vol] 89 U/L 33 - 136 AF-Reilbgf-A [place] 1048101 Work Phone: ALT With P-5'-P [Catalytic activity/Vol] 55 U/L above high threshold 7 - 45 JE-Nyfbcez-K [place] 1048101 Work Phone: Comment on above: Patients treated wit h Sulfasalazine may generate falsely decreased results for ALT. AST With P-5'-P [Catalytic activity/Vol] 37 U/L 9 - 39 JH-Ctjuafy-Z [facility] [address] Work Phone: Bilirubin [Mass/Vol] 0.3 mg/dL 0.0 - 1.2 MG-U rology-W [place] 1048101 Work Phone: Bilirubin.direct [Mass/Vol] 0.1 mg/dL 0.0 - 0.3 AG-Sukjagz-O [place] [id number] Work Phone: Protein [Mass/Vol] 6.4 g/dL 6.4 - 8.2 MG-Uro logy-W [place] [id number] Work Phone: Hepatitis B Surface Antibody on 09-16-2021 HBV surface Ag IA Ql 47.1 {mIU/mL} <10 M G-Urology-W [place] 2863501 Work Phone: Comment on above: SOURCE: INTERPRETIVE CRITERIA:<10 mIU/mL....NONREACTIVE >=10 mIU/mL...REACTIVE . Biotin interference may cause falsely decreased results. Patients taking a Biotin dose of up to 5 mg/day should refrain from taking Biotin for 24 hours before sample collection. Providers may contact their local laboratory for further information. Hepatitis C Antibody Teston 09-16-2021 Hepatitis C Antibody Test Non-Reactive See Below HT-Fpfmhvp-[facility] [address] Work Phone: Comment on above: SOURCE: Reference [...] information. No Panel Informationon 09-16 Negative NEGATIVE BU-Mtexkee-N estlaFilement [facility] [address] Work Phone: Complete Blood Count + Diffe rentialon 08-28-2021 Basophils/100 WBC (Bld) 0.6 % 0.0 - 2.0 MP-Pain Management-[facility] Work Phone: Erythrocyte distribution width (RBC) [Ratio] 13.0 % See Below [facility] [address] Work Phone: Comment on above: Reference Range: 11. 5 - 14.5 Hematocrit (Bld) [Volume fraction] 38.1 % See Below MP-[facility] Work Phone: Comment on above: Reference Range: 36. 0 - 46.0 Hemoglobin (Bld) [Mass/Vol] 12.1 g/dL See Below MP-Pain Management-[facility] Work Phone: Comment on above: Reference Range: 12. 0 - 16.0 Lymphocytes/100 WBC (Bld) 10.3 % See Below MP-Pain Management-[facility] Work Phone: Comment on above: Reference Range: 13. 0 - 44.0 MCHC (RBC) [Mass/Vol] 31.8 g/dL below low threshold See Below MP-[facility] [place] Work Phone: Comment on above: Reference Range: 32. 0 - 36.0 MCV (RBC) [Entitic vol] 100 fL 80 - 100 MP[facility] [place] Work Phone: Monocytes/100 WBC (Bld) 11.6 % 2.0 - 10.0 MP[facility] [facility] [place] Work Phone: Neutrophils/100 WBC (Bld) 76.4 % See Below MP[facility] [facility] [place] Work Phone: Comment on above: Reference Range: 40. 0 - 80.0 Platelets (Bld) [#/Vol] 254 10*3/uL 150 - 450 MP-[facility] Management[facility] [place] Work Phone: RBC (Bld) [#/Vol] 3.81 {x10E12/L} below low threshold See Below MP-[facility] Work Phone: Comment on above: Reference Range: 4.0 0 - 5.20 WBC (Bld) [#/Vol] 6.5 10*3/uL 4.4 - 11.3 MP-Jarad n Management-P [facility] [facility] [place] Work Phone: Complete Blood Count + Differential 0.04 {x10E9/L} See Below MP-[facility] [facility] [place] Work Phone: Comment on above: Reference Range: 0.0 0 - 0.10 Reference Range: 0.0 0 - 0.70 Complete Blood Count + Differential 0.75 {x10E9/L} See Below MP-Pain Management-[facility] [facility] [place] Work Phone: Comment on above: Reference Range: 0.1 0 - 1.00 Complete Blood Count + Differential 0.67 {x10E9/L} below low threshold See Below MP-Pain Management-[facility] Work Phone: Comment on above: Reference Range: 1.2 0 - 4.80 Complete Blood Count + Differential 4.96 {x10E9/L} See Below MP-[facility] [address] Work Phone: Comment on above: Reference Range: 1.2 0 - 7.70 Complete Blood Count + Differential 0.6 % 0.0 - 6.0 MP-Pain Management-[facility] Work Phone: Complete Blood Count + Differential 0.5 % 0.0 - 0.9 MP[facility] [address] Work Phone: Comment on above: Immature Granulocyte Count (IG) includes promyelocytes, myelocytes and metamyelocytes but does not include bands. Percent differential counts (%) should be interpreted in the context of the absolute cell counts (cells/L). Complete Blood Count + Differential 0.0 {/100_WBC} 0.0-0.0 MP[facility] [address] Work Phone: Hepatic Function Panelon Albumin BCP dye [Mass/Vol] 4.3 g/dL 3.4 - 5.0 MP-Pain Management-[facility] Work Phone: ALP [Catalytic activity/Vol] 91 U/L 33 - 136 MP-Pain Management-[facility] Work Phone: ALT With P-5'-P [Catalytic activity/Vol] 60 U/L above high threshold 7 - 45 MP-Pain Management-[facility] [address] Work Phone: Comment on above: Patients [...] to view the study images Normal MG-Ophthalmo logy-[place] Work Phone: Radiologyon 08-07-2021 US Kidney - bilateral Normal [facility] Work Phone: Complete Blood Count + Diffe rentialon 07-24-2021 Basophils/100 WBC (Bld) 1.2 % 0.0 - 2.0 YM-Gwgplws[facility]O [facility] [address] Work Phone: Erythrocyte distribution width (RBC) [Ratio] 12.7 % See Below FP-Wuaiipd-U [facility]Big [facility] [address] Work Phone: Comment on above: Reference Range: 11. 5 - 14.5 Hematocrit (Bld) [Volume fraction] 38.7 % See Below SQ-Vlezfct-Y [facility]Big [facility] [address] Work Phone: Comment on above: Reference Range: 36. 0 - 46.0 Hemoglobin (Bld) [Mass/Vol] 12.5 g/dL See Below WB-Lgaengk-Q [facility]Big [facility] [address] Work Phone: Comment on above: Reference Range: 12. 0 - 16.0 Lymphocytes/100 WBC (Bld) 22.5 % See Below KR-Iukrxwd-O [facility] [address] Work Phone: [phone] Comment on above: Reference Range: 13. 0 - 44.0 MCHC (RBC) [Mass/Vol] 32.3 g/dL See Below VS-Zniogsi-K [place] [address] Work Phone: [phone] Comment on above: Reference Range: 32. 0 - 36.0 MCV (RBC) [Entitic vol] 99 fL 80 - 100 KD-Ayglekc-Z [place] [address] Work Phone: [phone] Monocytes/100 WBC (Bld) 11.3 % 2.0 - 10.0 BU-Xdhbswo-L [place] [address] Work Phone: [phone] Neutrophils/100 WBC (Bld) 63.5 % See Below PB-Zkijzgl-L [place] [facility] [address] Work Phone: Comment on above: Reference Range: 40. 0 - 80.0 Platelets (Bld) [#/Vol] 261 10*3/uL 150 - 450 IG-Xmigfao-L [place] [address] Work Phone: [phone] RBC (Bld) [#/Vol] 3.91 {x10E12/L} below low threshold See Below LZ-Tuauezi-B [place] [address] Work Phone: [phone] Comment on above: Reference Range: 4.0 0 - 5.20 WBC (Bld) [#/Vol] 3.5 10*3/uL below low threshold 4.4 - 11.3 ED-Gmausyh-M [place] [address] Work Phone: [phone] Complete Blood Count + Differential 0.04 {x10E9/L} See Below ZO-Ofeqzcw-H [place] [address] Work Phone: Comment on above: Reference Range: 0.0 0 - 0.10 Reference Range: 0.0 0 - 0.70 Complete Blood Count + Differential 0.39 {x10E9/L} See Below WU-Ruuouct-M [place] [address] Work Phone: [phone] Comment on above: Reference Range: 0.1 0 - 1.00 Complete Blood Count + Differential 0.78 {x10E9/L} below low threshold See Below PE-Icaprnj-M [place] CommunicationsVan[place] [address] Work Phone: Comment on above: Reference Range: 1.2 0 - 4.80 Complete Blood Count + Differential 2.20 {x10E9/L} See Below MS-Qyolnwf-G [place] [address] Work Phone: Comment on above: Reference Range: 1.2 0 - 7.70 Complete Blood Count + Differential 1.2 % 0.0 - 6.0 GO-Maesdrh-S [place] [address] Work Phone: Complete Blood Count + Differential 0.3 % 0.0 - 0.9 GA-Ygifwsk-X [place] [address] Work Phone: Comment on above: Immature Granulocyte Count (IG) includes promyelocytes, myelocytes and metamyelocytes but does not include bands. Percent differential counts (%) should be interpreted in the context of the absolute cell counts (cells/L). Complete Blood Count + Differential 0.0 {/100_WBC} 0.0-0.0 XE-Rderdii-N [place] [address] Work Phone: Ferritin, Serumon 07-24-2021 Ferritin [Mass/Vol] 41 ug/L 8 - 150 MG-Ur ology-W [place] [address] Work Phone: Folate, Serumon 07-24-2021 Folate [Mass/Vol] 13.6 ng/mL >5.0 MG-Urol ogy-W [place] [address] Work Phone: Comment on above: Low <3.4Borderline 3 .4-5.0Normal >5.0. Biotin interference may cause falsely elevated results. Patients taking a Biotin dose of up to 5 mg/day should refrain from taking Biotin for 24 hours before sample collection. Providers may contact their local laboratory for further information. IO UA (automated w/o microsc opy)on 07-24-2021 Protein (U) [Mass/Vol] Negative ME-Ipgsojx[facility] [address] Work Phone: IO UA (automated w/o microscopy) Negative EK-Qthuwlq-G [facility] [address] Work Phone: IO UA (automated w/o microscopy) Normal (0.2-1.0 mg/dl) MG-Urolog y-W [facility]Big [facility] [address] Work Phone: IO UA (automated w/o microscopy) 5.5 1 NZ-Jvsoxyw-H [facility] [address] Work Phone: IO UA (automated w/o microscopy) 1.020 1 RV-Dixkydr-Z [facility] [address] Work Phone: IO UA (automated w/o microscopy) Trace OD-Vlcmmgj-X [place] [address] Work Phone: IO UA (automated w/o microscopy) Clear LG-Hnhmdza-V [facility]Big [facility] [address] Work Phone: IO UA (automated w/o microscopy) Yellow YS-Kkgbqec-I [facility] [address] Work Phone: Laboratory - Chemistry and C hemistry - challengeon 07-24-2021 Albumin BCP dye [Mass/Vol] 4.5 g/dL 3.4 - 5.0 HI-Girzdhl-M [facility] [address] Work Phone: ALP [Catalytic activity/Vol] 98 U/L 33 - 110 NK-Jqltbrg-Y [facility] [address] Work Phone: ALT With P-5'-P [Catalytic activity/Vol] 83 U/L above high threshold 7 - 45 RL-Jczugfm-Q [place] 1048101 Work Phone: Comment on above: Patients treated wit h Sulfasalazine may generate falsely decreased results for ALT. Anion gap [Moles/Vol] 10 mmol/L 10 - 20 XV-Lqirkvk-M [facility] Work Phone: AST With P-5'-P [Catalytic activity/Vol] 56 U/L above high threshold 9 - 39 HL-Zobeznw-W [place] 1048101 Work Phone: Bilirubin [Mass/Vol] 0.4 mg/dL 0.0 - 1.2 MG-U rology-W [place] 1048101 Work Phone: Calcium [Mass/Vol] 9.5 mg/dL 8.6 - 10.6 MG-Uro logy-W [place] 1048101 Work Phone: Chloride [Moles/Vol] 108 mmol/L above high threshold 98 - 107 JB-Rzgwhhp-H [place] 1048101 Work Phone: CO2 [Moles/Vol] 31 mmol/L 21 - 32 MG-Urolog y-W [place] 1048101 Work Phone: Creatinine [Mass/Vol] 0.55 mg/dL See Below ET-Xpsgtfp-Q [place] 1048101 Work Phone: Comment on above: Reference Range: 0.5 0 - 1.05 Glucose [Mass/Vol] 108 mg/dL above high threshold 74 - 99 WY-Eqzylzt-V [place] 1048101 Work Phone: Potassium [Moles/Vol] 3.9 mmol/L 3.5 - 5.3 YL-Jgxcjtg-V [place] 1048101 Work Phone: Protein [Mass/Vol] 7.0 g/dL 6.4 - 8.2 MG-Uro logy-W [place] 1048101 Work Phone: Sodium [Moles/Vol] 145 mmol/L 136 - 145 MG-Uro logy-W [place] 1048101 Work Phone: Urea nitrogen [Mass/Vol] 13 mg/dL 6 - 23 FF-Dpldzrb-P [place] 1048101 Work Phone: Magnesium, Serumon 09-23-202 1 Magnesium [Mass/Vol] 2.10 mg/dL See Below MG-U rology-W [facility]Big [facility] [address] Work Phone: Comment on above: Reference Range: 1.6 0 - 2.40 No Panel Informationon 07-24 >60 >60 RI-Yxudokv-I ninosdbenedicto [facility] [address] Work Phone: Comment on above: CALCULATIONS OF LEW MATED GFR ARE PERFORMED USING THE MDRD STUDY EQUATION FOR THE IDMS-TRACEABLE CREATININE METHODS. CLIN CHEM 2007;53:766-72 TSH - Thyroid Stimulating Ho rmone, Serumon 07-24-2021 TSH Qn 1.79 m[IU]/L See Below FE-Qcdpmdr-N ninosdbenedicto [facility] [address] Work Phone: Comment on above: Reference Range: 0.4 4 - 3.98 TSH testing is performed using different testing methodology at [facility] than at other [facility]. Direct result comparisons should only be made within the same method. Thyroxine, Serum (T4)on 07-03 T4 [Mass/Vol] 8.6 ug/dL 4.5 - 11.1 MG[facility]rology[facility] W [facility] [address] Work Phone: Triiodothyronine, Level (T3) on 07-24-2021 T3 [Mass/Vol] 98 ng/dL 60 - 200 MG[facility]rology- W [facility] [address] Work Phone: Vitamin B12, Serumon Cobalamin (Vitamin B12) [Mass/Vol] pg/mL Abnormal 211 - 911 LS-Czswfnb-E [facility]Big [facility] [address] Work Phone: Tobacco Screening.on 021 Fall risk assessment a) No falls within the last year [facility] Work Phone: Fall risk assessment b) One or more fall s in the last year QR-Rdxqggx-U [facility]Big [facility] [address] Work Phone: Tobacco use status CPHS b) No [facility] Work Phone: Tobacco Screening.on 021 Fall risk assessment b) One or more fall s in the last year [facility] Work Phone: Tobacco use status CP b) No [facility] Work Phone: Tobacco Screening.on 021 Fall risk assessment a) No falls within the last year BO-Adybazn-[place] [address] Work Phone: Tobacco use status [facility] b) No MD-Abuunug-F [place] [address] Work Phone: Tobacco Screening.on 021 Fall risk assessment a) No falls within the last year GY-Rwusuen-C [place] [address] Work Phone: Tobacco use status [facility] b) No IW-Zczwnji-Y [place] [address] Work Phone: Coronavirus 2019 RNA by PCR, Screening Asymptomticon 03-25-2021 Coronavirus 2019 RNA by PCR, Screening Asymptomtic Not detected Normal See Below OC-Gkxetbg-O [place] [employer] [address] Work Phone: Comment on above: SOURCE: Nasal, [...] this test method. Fact sheet for providers: www.fda.gov/media/077494/downloadFact sheet for patients: www.fda.gov/media/588486/downloadThis test has received FDA Emergency Use Authorization (EUA) and has been verified by [facility]. This test is only authorized for the duration of time that circumstances exist to justify the authorization of the emergency use of in vitro diagnostic tests for the detection of SARS-CoV-2 virus and/or diagnosis of COVID-19 infection under section 564(b)(1) of the Act, 21 U.S.C. 360bbb-3(b)(1), unless the authorization is terminated or revoked sooner. [facility] is certified under CLIA-88 as qualified to perform high complexity testing. Testing is performed in the [facility] laboratory located at [address] [place] [address]. No Panel Informationon 03-25 QT-Ueoagex-Y [place] 4292701 Work Phone: Cult, Urineon 03-17-2021 Bacteria identified Cx Nom (U) DY-Spkvqyx-W [place] 4292701 Work Phone: Laboratory - Chemistry and C hemistry - challengeon 03-17-2021 Anion gap [Moles/Vol] 10 mmol/L 10 - 20 CC-Gffmijp-Z [place] 2863501 Work Phone: Calcium [Mass/Vol] 9.1 mg/dL 8.6 - 10.3 MG-Uro logy-W [place] 1048101 Work Phone: Chloride [Moles/Vol] 106 mmol/L 98 - 107 MG-U rology-W [place] 4292701 Work Phone: CO2 [Moles/Vol] 28 mmol/L 21 - 32 MG-Urolog y-W [place] 4292701 Work Phone: Creatinine [Mass/Vol] 0.47 mg/dL below low threshold See Below BA-Rkstbkk-E [place] [address]4501 Work Phone: Comment on above: Reference Range: 0.5 0 - 1.05 Glucose [Mass/Vol] 98 mg/dL 74 - 99 MG-Uro logy-W [place] 2863501 Work Phone: Potassium [Moles/Vol] 4.0 mmol/L 3.5 - 5.3 NL-Hdtkghp-G [place] 2863501 Work Phone: Sodium [Moles/Vol] 140 mmol/L 136 - 145 MG-Uro logy-W [place] 2863501 Work Phone: Urea nitrogen [Mass/Vol] 18 mg/dL 6 - 23 AW-Pnsyemq-V [facility] [address] Work Phone: Laboratory - Hematology and Cell countson 03-17-2021 Erythrocyte distribution width (RBC) [Ratio] 12.6 % See Below SZ-Ptlhvnj-X ninosdbenedicto [facility] [address] Work Phone: Comment on above: Reference Range: 11. 5 - 14.5 Hematocrit (Bld) [Volume fraction] 38.5 % See Below LK-Sdjbakh-W [facility] [address] Work Phone: Comment on above: Reference Range: 36. 0 - 46.0 Hemoglobin (Bld) [Mass/Vol] 12.6 g/dL See Below HF-Vtcxvhu-K ninosdbenedicto [facility] [address] Work Phone: Comment on above: Reference Range: 12. 0 - 16.0 MCHC (RBC) [Mass/Vol] 32.7 g/dL See Below PV-Luijhdi-Q ninosdbenedicto [facility] [address] Work Phone: Comment on above: Reference Range: 32. 0 - 36.0 MCV (RBC) [Entitic vol] 96 fL 80 - 100 JK-Dwkbvks-H ninosdbenedicto [facility] [address] Work Phone: Platelets (Bld) [#/Vol] 280 10*3/uL 150 - 450 UC-Mumidku-P Phonez[facility] CommunicationsBig [facility] [address] Work Phone: RBC (Bld) [#/Vol] 4.02 {x10E12/L} See Below MG -Urology-W ninosdbenedicto [facility] [address] Work Phone: Comment on above: Reference Range: 4.0 0 - 5.20 WBC (Bld) [#/Vol] 5.6 10*3/uL 4.4 - 11.3 MG-Uro logy-W [facility]Big [facility] [address] Work Phone: No Panel Informationon 03-17 >60 >60 GZ-Vmxuljn-H [place] [address] Work Phone: Comment on above: CALCULATIONS OF LEW MATED GFR ARE PERFORMED USING THE MDRD STUDY EQUATION FOR THE IDMS-TRACEABLE CREATININE METHODS. CLIN CHEM 2007;53:766-72 0.0 {/100_WBC} 0.0 - 0.0 MG-Urology -[place] [address] Work Phone: [email or web address] [email or web address]?Tiffany [id number]&Date=&Time=08%3a13%3a46%3a 00&TestType=ECG&Site=12&Ou tputType=PDF&Ext=PDF NA-Gijkdti-R [place] [address] Work Phone: Normal sinus rhythm MG-Ur ology-[place] [address] Work Phone: Abnormal TB-Yljevks-F [place] [address] Work Phone: [phone] PQ-Kaiepew-Z [place] [address] Work Phone: [phone] FB-Ehfqxjp-B [place] [address] Work Phone: [phone] GC-Pchsvrk-M [place] [address] Work Phone: 161 1 QZ-Gzxeqoo-B [place] [address] Work Phone: [phone] XC-Keyurnb-X [place] [address] Work Phone: 14 1 QQ-Nskrtyn-S [place] [address] Work Phone: 62 1 JT-Yiqzeqo-R [place] [address] Work Phone: 89 1 FO-Nilwdfa-M [place] [address] Work Phone: 78 1 CD-Qndeisa-O [place] [address] Work Phone: [phone] IZ-Lkdgiwu-S [place] [address] Work Phone: 348 1 SX-Lxgekeb-T [place] [address] Work Phone: 84 1 UQ-Udkfzvx-V estlabenedicto [place] [address] Work Phone: [phone] 1 XP-Jxchtvh-D estlabenedicto [place] [address] Work Phone: 85 1 ZR-Cixmxra-Q [place] [address] Work Phone: CR Chest PA/LATon 10-19-2019 CR Chest PA/LAT Patient Name: ANCA HSU Diagnostic Radiology Exam Date/Time 10/19/2019 10:26:54 EST Exam CR Chest PA/LAT Ordering Physician DO ALEJANDRO EUGENE F. Accession Number [id number] CPT4 Codes 17791 () Reason For Exam tb screening Report [...] Transcribed Date and Time: 10/19/2019 10:47 Normal [facility] XR CHEST STANDARD (2 VW)Orde red By: Kory Alejandro on 10-19-2019 Patient Name: ANCA HSU ---Diagnostic Radiology--- Exam Date/Time 10/19/2019 10:26:54 EST Exam CR Chest PA/LAT Ordering Physician DO ALEJANDRO EUGENE F. Accession Number [id number] CPT4 Codes 32656 () Reason For Exam tb screening Report [...] Phone: [place], [facility] Incoming [facility]iology Results From Counts Include [facility] - 10/19/2019 10:47 AM EST Patient Name: ANCA HSU ---Diagnostic Radiology--- Exam Date/Time 10/19/2019 10:26:54 EST Exam CR Chest PA/LAT Ordering Physician DO ALEJANDRO EUGENE F. Accession Number [id number] CPT4 Codes 67081 () Reason For Exam tb screening Report [...] Physician MD HICKS JASON T Accession Number [id number] CPT4 Codes 69531 () Reason For Exam trauma, bleeding s/p [...] Transcribed Date and Time: 10/05/2019 9:10 Normal [facility] XR NASAL BONE (MIN 3 VIEWS ) on 10-05-2019 Patient Name: ANCA HSU ---Diagnostic Radiology--- Exam Date/Time 10/05/2019 20:44:33 EST Exam CR Nasal Bones Complete 3+ Views Ordering Physician MD HICKS JASON T Accession Number [id number] CPT4 Codes 23765 () Reason For Exam trauma, bleeding s/p [...] HARLAN Transcribed Date and Time: 10/05/2019 9:10 [facility]- [place], [place], [facility] Incoming Radiology Results From [employer] - 10/05/2019 9:10 PM EST Patient Name: ANCA HSU ---Diagnostic Radiology--- Exam Date/Time 10/05/2019 20:44:33 EST Exam CR Nasal Bones Complete 3+ Views Ordering Physician MD HICKS JASON T Accession Number [id number] CPT4 Codes 94669 () Reason For Exam trauma, bleeding s/p [...] HARLAN Transcribed Date and Time: 10/05/2019 9:10 [place], [place] CR Hip w/ Pelvis 2 or 3 View s Righton 07-27-2019 CR Hip w/ Pelvis 2 or 3 Views Right Patient Name: ANCA HSU Diagnostic Radiology Exam Date/Time 07/27/2019 13:59:44 EDT Exam CR Hip w/ Pelvis 2 or 3 Views Right n Ordering Physician DO ALEJANDRO EUGENE F. Accession Number [id number] CPT4 Codes 42684 () Reason For Exam primary osteoarthritis of [...] Transcribed Date and Time: 07/27/2019 2:42 Normal [facility] HIV 1,2 Ab; p24 Agon 019 HIV 1,2 Ab; p24 Ag NONREACTIVE Normal Nonreactive [facility] Comment on above: Result Comment: Resu [...] By: #### H BSA, HIV4, HEPC #### [address] [address] [address] [place], [place] #### HEMKAYLYNN CMP3 #### [facility] [address] [place] [address] Hep B Surface Abon 9 Hep B Surface Ab 30.4 m[IU]/mL Normal [facility] Comment on above: Result Comment: Inte rpretation: <8.0 Non-Reactive 8.0-11.9 Equivocal >= 12.0 Ab Detected Performed By: #### H BSA, HIV4, HEPC #### [address] [address] [place], [place] #### HEMKAYLYNN CMP3 #### [facility] [address] [place] [address] Hep C Antibodyon 06-25-2019 Hep C Antibody NOT DETECTED Normal Not-Detected [facility] Comment on above: Result Comment: Tiffany ents with DETECTED Hepatitis C Ab results should have a new specimen submitted for supplemental testing with a Hepatitis C Quantitative RNA assay (viral load), if clinically indicated. Performed By: #### H BSA, HIV4, HEPC #### [address] [address] [address] [place], [place] #### HEMOG CMP3 #### [facility] [address] [place] [address] Comp Metabolic Panelon 06-24 ALT [Catalytic activity/Vol] 65 U/L Normal 13-69 [facility] Comment on above: Performed By: #### H BSA, HIV4, HEPC #### [address] [place], [place] #### HEMOG, CMP3 #### [facility] [address] [place] [address] Calcium [Mass/Vol] 9.2 mg/dL Normal 8.4-10.4 [facility] Comment on above: Performed By: #### H BSA, HIV4, HEPC #### [facility] [address] [place], [place] #### HEMOG, CMP3 #### [facility] [address] [place] [address] Glucose [Mass/Vol] 96 mg/dL Normal 70-100 [facility] Comment on above: Performed By: #### H BSA, HIV4, HEPC #### [address] [address] [address] [place], [place] #### HEMOG, CMP3 #### [facility] [address] [place] [address] Urea nitrogen [Mass/Vol] 21 mg/dL High 7-20 [facility] Comment on above: Performed By: #### H BSA, HIV4, HEPC #### [address] [address] [address] [place], [place] #### HEMOG, CMP3 #### [facility] [address] [place] [address] ALP [Catalytic activity/Vol] 75 U/L Normal 38-126 [facility] Comment on above: Performed By: #### H BSA, HIV4, HEPC #### [address] [address] [address] [place], [place] #### HEMOG, CMP3 #### [facility] [address] [place] [address] Anion gap [Moles/Vol] 9 Normal [facility] Comment on above: Performed By: #### H BSA, HIV4, HEPC #### [address] [address] [address] [place], [place] #### HEMOG, CMP3 #### [facility] [address] [place] [address] AST [Catalytic activity/Vol] 37 U/L Normal 15-46 [facility] Comment on above: Performed By: #### H BSA, HIV4, HEPC #### [address] [address] [address] [place], [place] #### HEMOG, CMP3 #### [facility] [address] [place] [address] Bilirubin [Mass/Vol] 0.3 mg/dL Normal 0.2-1.3 [facility] Comment on above: Performed By: #### H BSA, HIV4, HEPC #### [address] #### HEMOG, CMP3 #### [facility] [address] [place] [address] CO2 [Moles/Vol] 26 mmol/L Normal 22-30 [facility] Comment on above: Performed By: #### H BSA, HIV4, HEPC #### [address] #### HEMOG, CMP3 #### [facility] [address] [place] [address] Creatinine [Mass/Vol] 0.52 mg/dL Normal 0.52-1.25 [facility] Comment on above: Performed By: #### H BSA, HIV4, HEPC #### [address] #### HEMOG, CMP3 #### [facility] [address] [place] [address] GFR/1.73 sq M predicted among blacks MDRD (S/P/Bld) [Vol rate/Area] mL/min/{1.73_m2} Normal >60 [facility] Comment on above: Performed By: #### H BSA, HIV4, HEPC #### [address] #### HEMOG, CMP3 #### [facility] [address] [place] [address] GFR/1.73 sq M predicted among non-blacks MDRD (S/P/Bld) [Vol rate/Area] mL/min/{1.73_m2} Normal >60 [facility] Comment on above: Result Comment: Sour ce- MDRD equation with creatinine calibration to IDMS(NKDEP) eGFR not recommended for drug dose adjustment Performed By: #### H BSA, HIV4, HEPC #### [address] [place], [place] #### HEMOG, CMP3 #### [facility] [address] [place] [address] Protein [Mass/Vol] 7.2 g/dL Normal 6.3-8.2 [facility] Comment on above: Performed By: #### H BSA, HIV4, HEPC #### [address] [address] [address] [place], [place] #### HEMOG, CMP3 #### [facility] [address] [place] [address] Potassium [Moles/Vol] 3.6 mmol/L Normal 3.5-5.1 [facility] Comment on above: Performed By: #### H BSA, HIV4, HEPC #### [address] #### HEMOG, CMP3 #### [facility] [address] [place] [address] Sodium [Moles/Vol] 143 mmol/L Normal 135-145 [facility] Comment on above: Performed By: #### H BSA, HIV4, HEPC #### [address] #### HEMOG, CMP3 #### [address] [place] [address] Albumin [Mass/Vol] 4.3 g/dL Normal 3.5-5.0 [facility] Comment on above: Performed By: #### H BSA, HIV4, HEPC #### [address] [place], [place] #### HEMOG, CMP3 #### [facility] [address] [place] [address] Chloride [Moles/Vol] 107 mmol/L Normal 98-107 [facility] Comment on above: Performed By: #### H BSA, HIV4, HEPC #### [address] [address] [place], [place] #### HEMOG, CMP3 #### [facility] [address] [place] [address] Complete Urinalysison 2018 Bacteria LM.HPF (Urine sed) [#/Area] Moderate (6-50) Normal [facility] Comment on above: Result Comment: Refe rence Range: Negative Performed By: #### C UA2 #### [facility] [address] [place] [address] Mucous Threads Moderate Normal [facility] Comment on above: Result Comment: Refe rence Range: Negative Performed By: #### C UA2 #### [address] [place] [address] RBC LM.HPF (Urine sed) [#/Area] Negative Normal [facility] Comment on above: Result Comment: Refe rence Range: 0-2 Performed By: #### C UA2 #### [address] [place] [address] Squamous Epithelial 6 - 10 Normal [facility] Comment on above: Result Comment: Refe rence Range: 3-5 Performed By: #### C UA2 #### [address] [place] [address] VOLUME, URINE 12 ml Normal [facility] Comment on above: Performed By: #### C UA2 #### [address] [place] [place] [address] WBC LM.HPF (Urine sed) [#/Area] 3 - 5 Normal [facility] Comment on above: Result Comment: Refe rence Range: 0-5 Performed By: #### C UA2 #### [address] [place] [address] Appearance (U) Clear Normal [facility] Comment on above: Result Comment: Refe rence Range: Clear Performed By: #### C UA2 #### [address] [place] [address] Bilirubin,Urine Negative Normal [facility] Comment on above: Result Comment: Refe rence Range: Negative Performed By: #### C UA2 #### [facility] [address] [place] [address] Color (U) YELLOW Normal [facility] Comment on above: Result Comment: Refe rence Range: Lt. Yellow Performed By: #### C UA2 #### [facility] [address] [place] [address] Glucose Ql (U) Normal Normal [facility] Comment on above: Result Comment: Refe rence Range: Normal (<70) Performed By: #### C UA2 #### [facility] [address] [place] [address] Ketone,Urine Negative Normal [facility] Comment on above: Result Comment: Refe rence Range: Negative Performed By: #### C UA2 #### [facility] [address] [place] [address] Leukocytes,Urine 25 Pawan/uL Normal [facility] Comment on above: Result Comment: Refe rence Range: Negative Performed By: #### C UA2 #### [facility] [address] [place] [address] Nitrites,Urine Negative Normal [facility] Comment on above: Result Comment: Refe rence Range: Negative Performed By: #### C UA2 #### [facility] [address] [place] [address] Occult Blood,Urine Negative Normal [facility] Comment on above: Result Comment: Refe rence Range: Negative Performed By: #### C UA2 #### [facility] [address] [place] [address] pH (U) 6.0 Normal 5.0-8.0 [facility] Comment on above: Performed By: #### C UA2 #### [facility] [address] [place] [address] Protein (U) [Mass/Vol] 20 mg/dL Normal [facility] Comment on above: Result Comment: Refe rence Range: Negative Performed By: #### C UA2 #### [facility] [address] [place] [address] Specific [place],Urine > 1.030 Normal 1.005-1.030 [facility] Comment on above: Performed By: #### C UA2 #### [facility] [address] [place] [address] Urobilinogen,Urine Normal Normal [facility] Comment on above: Result Comment: Refe dayron Range: Normal (0-1) Performed By: #### C UA2 #### [facility] [address] [place] [address] Comprehensive Metabolic Pane chrystal 06-24-2019 Albumin [Mass/Vol] 4.3 g/dL 3.5 - 5 g/dL [place], [place] ALP [Catalytic activity/Vol] 75 U/L 38 - 126 U/L [place] ALT [Catalytic activity/Vol] 65 U/L 13 - 69 U/L [place] Anion gap [Moles/Vol] 9 mmol/L [place] AST [Catalytic activity/Vol] 37 U/L 15 - 46 U/L [place] Bilirubin Ql (U) 0.3 mg/dL 0.2 - 1.3 mg/dL [place] Calcium [Mass/Vol] 9.2 mg/dL 8.4 - 10. 4 mg/dL [place] Chloride [Moles/Vol] 107 mmol/L 98 - 10 7 mmol/L [place] CO2 [Moles/Vol] 26 mmol/L 22 - 30 mmol/L [place] Creatinine [Mass/Vol] 0.52 mg/dL 0.52 - 1.25 mg/dL [place] EGFR IF NonAfrican [place] >60.0 >60 mL/min [place] Comment on above: Source- MDRD equatio n with creatinine calibration to IDMS(NKDEP) eGFR not recommended for drug dose adjustment GFR/1.73 sq M predicted among blacks MDRD (S/P/Bld) [Vol rate/Area] mL/min/{1.73_m2} >60 mL/min [place] Glucose [Mass/Vol] 96 mg/dL 70 - 100 mg/dL [place] Interpretation and review of laboratory results Abnormal [place] Potassium [Moles/Vol] 3.6 mmol/L 3.5 - 5.1 mmol/L [place] Protein [Mass/Vol] 7.2 g/dL 6.3 - 8.2 g/dL [place] Sodium [Moles/Vol] 143 mmol/L 135 - 145 mmol/L [place] Urea nitrogen [Mass/Vol] 21 mg/dL High 7 - 20 mg/dL [place] Test Performed by [facility], [address] Hemogramon 06-24-2019 Erythrocyte distribution width (RBC) [Ratio] 14.0 % Normal 11.5-14.5 [facility] Comment on above: Performed By: #### H BSA, HIV4, HEPC #### [address] #### HEMOG, CMP3 #### [facility] [address] [place] [address] Hematocrit (Bld) [Volume fraction] 36.5 % Normal 35.0-47.0 [facility] Comment on above: Performed By: #### H BSA, HIV4, HEPC #### [address] #### HEMOG, CMP3 #### [facility] [address] [place] [address] Hemoglobin (Bld) [Mass/Vol] 12.4 g/dL Normal 11.7-16.0 [facility] Comment on above: Performed By: #### H BSA, HIV4, HEPC #### [address] #### HEMOG, CMP3 #### [facility] [address] [place] [address] MCH (RBC) [Entitic mass] 31.4 pg Normal 26.0-34.0 [facility] Comment on above: Performed By: #### H BSA, HIV4, HEPC #### [address] #### HEMOG, CMP3 #### [facility] [address] [place] [address] MCHC (RBC) [Mass/Vol] 33.9 % Normal 32.0-36.0 [facility] Comment on above: Performed By: #### H BSA, HIV4, HEPC #### [address] [address] [address] [place], [place] #### HEMOG, CMP3 #### [facility] [address] [place] [address] MCV (RBC) [Entitic vol] 92.6 fL Normal 79.0-98.0 [facility] Comment on above: Performed By: #### H BSA, HIV4, HEPC #### [address] [address] [address] [place], [place] #### HEMOG, CMP3 #### [address] [place] [address] Platelet mean volume (Bld) [Entitic vol] 8.4 fL Normal 7.4-10.4 [facility] Comment on above: Performed By: #### H BSA, HIV4, HEPC #### [address] [address] [address] [place], [place] #### HEMOG, CMP3 #### [address] [place] [address] Platelets (Bld) [#/Vol] 301 10*3/uL Normal 140-440 [facility] Comment on above: Performed By: #### H BSA, HIV4, HEPC #### [address] [address] [address] [place], [place] #### HEMOG, CMP3 #### [facility] [address] [place] [address] RBC (Bld) [#/Vol] 3.95 10*6/uL Normal 3.80-5.20 [facility] Comment on above: Performed By: #### H BSA, HIV4, HEPC #### [address] #### HEMOG, CMP3 #### [facility] [address] [place] [address] WBC (Bld) [#/Vol] 6.0 10*3/uL Normal 3.6-10.7 [facility] Comment on above: Performed By: #### H BSA, HIV4, HEPC #### [facility] [address] [place] [address] #### HEMOG, CMP3 #### [facility] [address] [place] [address] Hemogram (CBC)on 06-24-2019 Erythrocyte distribution width (RBC) [Ratio] 14.0 % 11.5 - 14.5 % [place] Hematocrit (Bld) [Volume fraction] 36.5 % 35 - 47 % [place] Hemoglobin (Bld) [Mass/Vol] 12.4 g/dL 11.7 - 16 g/dL [place] MCH (RBC) [Entitic mass] 31.4 pg 26 - 34 pg [place] MCHC (RBC) [Mass/Vol] 33.9 % 32 - 36 % [place] MCV (RBC) [Entitic vol] 92.6 fL 79 - 98 fL [place] Platelet mean volume (Bld) [Entitic vol] 8.4 fL 7.4 - 10.4 fL [place] Platelets (Bld) [#/Vol] 301 10*3/uL 140 - 440 10*3/uL [place] RBC (Bld) [#/Vol] 3.95 10*6/uL 3.8 - 5.2 10*6/uL [place] WBC (Bld) [#/Vol] 6.0 10*3/uL 3.6 - 10.7 10*3/uL [place] Test Performed by [facility], [address] , [address] Urinalysison 06-24-2019 Appearance (U) Clear [place] Comment on above: Reference Range: Ozzy ar Bacteria, UA Moderate (6-50) /[HPF] [place] Comment on above: Reference Range: Neg ative Bilirubin Urine Negative mg/dL [place] Comment on above: Reference Range: Neg ative Color (U) YELLOW [place] Comment on above: Reference Range: Lt. Yellow Glucose, Ur Normal mg/dL [place] Comment on above: Reference Range: Nor mal (<70) Ketones Ql (U) Negative mg/dL [place] Comment on above: Reference Range: Neg ative LEUKOCYTES, UA 25 Pawan/uL [place] Comment on above: Reference Range: Neg ative Mucous Threads Moderate /[LPF] [place] Comment on above: Reference Range: Neg ative Nitrite, Urine Negative [place] Comment on above: Reference Range: Neg ative Occult Blood,Urine Negative mg/dL [place] Comment on above: Reference Range: Neg ative pH (U) 6.0 [pH] [place] Protein (U) [Mass/Vol] 20 mg/dL [place] Comment on above: Reference Range: Neg ative RBC (U) [#/Vol] Negative /[HPF] [place] Comment on above: Reference Range: 0-2 Specific [place], Urine >1.030 [place] Squam Epithel, UA 6-10 /[HPF] [place] Comment on above: Reference Range: 3-5 Urobilinogen, Urine Normal mg/dL [place] Comment on above: Reference Range: Nor mal (0-1) Volume 12 ml [place] WBC, UA 3-5 /[HPF] [place] Comment on above: Reference Range: 0-5 Test Performed by [facility], [facility] [address] , [address] Vital Signs Date Time Vital Sign Value Performing Clinician Facility 07-07-2024 07:27-0400 Body height 160 cm Kory Javon DO Work Phone: [facility] 07-07-2024 07:27-0400 Body temperature 97 [degF] Kory Alejandro DO Work Phone: [facility] 07-07-2024 07:27-0400 Diastolic blood pressure 78 mm[Hg] Kory Karlalla DO Work Phone: [facility] 07-07-2024 07:27-0400 Heart rate 72 /min Kory Karlalla DO Work Phone: [facility] 07-07-2024 07:27-0400 SaO2% (BldA) [Mass fraction] 98 % Kory Karlalla DO Work Phone: [facility] 07-07-2024 07:27-0400 Systolic blood pressure 119 mm[Hg] Kory Karlalla DO Work Phone: [facility] 05-16-2024 06:48-0400 Body height 160 cm Kory Tavarezlla DO Work Phone: [facility] 05-16-2024 06:48-0400 Body temperature 97 [degF] Koyr Tavarezlla DO Work Phone: [facility] 05-16-2024 06:48-0400 Diastolic blood pressure 70 mm[Hg] Kory Tavarezlla DO Work Phone: [facility] 05-16-2024 06:48-0400 Heart rate 74 /min Kory Tavarezlla DO Work Phone: [facility] 05-16-2024 06:48-0400 SaO2% (BldA) [Mass fraction] 98 % Kory Karlalla DO Work Phone: [facility] 05-16-2024 06:48-0400 Systolic blood pressure 102 mm[Hg] Kory Karlalla DO Work Phone: [facility] 01-05-2024 07:08-0500 Diastolic blood pressure 74 mm[Hg] Kory Karlalla DO Work Phone: [facility] 01-05-2024 07:08-0500 Systolic blood pressure 112 mm[Hg] Kory Tavarezlla DO Work Phone: [facility] 10-08-2023 08:34-0500 Body height 160 cm Kory Tavarezlla DO Work Phone: [facility] 10-08-2023 08:34-0500 Body temperature 97.9 [degF] Kory Tavarezlla DO Work Phone: [facility] 10-08-2023 08:34-0500 Diastolic blood pressure 60 mm[Hg] Kory Tavarezlla DO Work Phone: [facility] 10-08-2023 08:34-0500 Heart rate 86 /min Kory Tavarezlla DO Work Phone: [facility] 10-08-2023 08:34-0500 SaO2% (BldA) [Mass fraction] 98 % Kory Tavarezlla DO Work Phone: [facility] 10-08-2023 08:34-0500 Systolic blood pressure 94 mm[Hg] Kory Tavarezlla DO Work Phone: [facility] 07-30-2023 07:28-0400 Body height 160 cm Kory Smitha DO Work Phone: [facility] 07-30-2023 07:28-0400 Body temperature 98.71 [degF] Kory Smitha DO Work Phone: [facility] 07-30-2023 07:28-0400 Diastolic blood pressure 62 mm[Hg] Kory Smitha DO Work Phone: [facility] 07-30-2023 07:28-0400 Heart rate 69 /min Kory Smitha DO Work Phone: [facility] 07-30-2023 07:28-0400 SaO2% (BldA) [Mass fraction] 99 % Kory Tavarezlla DO Work Phone: [facility] 07-30-2023 07:28-0400 Systolic blood pressure 91 mm[Hg] Kory Tavarezlla DO Work Phone: [facility] 07-29-2023 09:05-0400 Body height 160.02 cm Kory Vaishali Tavarezaugustine Work Phone: PE-Viisgoy-Rtyejif monica [facility] [id number] Work Phone: 07-29-2023 09:05-0400 Body mass index (BMI) [Ratio] 21.08 kg/m2 Kory Alejandro Work Phone: MH-Jjajbnh-Audslqw e [facility] [id number] Work Phone: 07-29-2023 09:05-0400 Body surface area Derived from formula 1.55 m2 Kory Alejandro Work Phone: LK-Aiurqng-Qrtlerv e [facility] [id number] Work Phone: 07-29-2023 09:05-0400 Body temperature 96.3 [degF] Kory Alejandro Work Phone: OJ-Waemzzc-Kgjdfhd e [facility] [address] Work Phone: 07-29-2023 09:05-0400 Body weight 53.98 kg Kory Alejandro Work Phone: TE-Nolqema-Qgjubfx e [facility] [id number] Work Phone: 07-29-2023 09:05-0400 Diastolic blood pressure 70 mm[Hg] Kory Alejandro Work Phone: PV-Lzujfut-Manuxou e [facility] [id number] Work Phone: 07-29-2023 09:05-0400 Heart rate 73 /min Kory Alejandro Work Phone: HP-Qmhspsn-Yxvvjqr e [facility] [id number] Work Phone: 07-29-2023 09:05-0400 Systolic blood pressure 124 mm[Hg] Kory Alejandro Work Phone: PX-Okcizoe-Ekpuklt e [employer] [id number] Work Phone: 06-02-2023 07:29-0400 Body height 160 cm Kory Alejandro DO Work Phone: [facility] 06-02-2023 07:29-0400 Body temperature 97.7 [degF] Kory Alejandro DO Work Phone: [facility] 06-02-2023 07:29-0400 Diastolic blood pressure 69 mm[Hg] Kory Smitha DO Work Phone: [facility] 06-02-2023 07:29-0400 Heart rate 79 /min Kory Smitha DO Work Phone: [facility] 06-02-2023 07:29-0400 SaO2% (BldA) [Mass fraction] 99 % Kory Alejandro DO Work Phone: [facility] 06-02-2023 07:29-0400 Systolic blood pressure 116 mm[Hg] Kory Alejandro DO Work Phone: [facility] 05-19-2023 06:59-0400 Body height 160 cm Kory Smitha DO Work Phone: [facility] 05-19-2023 06:59-0400 Body temperature 99.1 [degF] Kory Alejandro DO Work Phone: [facility] 05-19-2023 06:59-0400 Diastolic blood pressure 69 mm[Hg] Kory Alejandro DO Work Phone: [facility] 05-19-2023 06:59-0400 Heart rate 72 /min Kory Alejandro DO Work Phone: [facility] 05-19-2023 06:59-0400 SaO2% (BldA) [Mass fraction] 99 % Kory Smitha DO Work Phone: [facility] 05-19-2023 06:59-0400 Systolic blood pressure 105 mm[Hg] Kory Smitha DO Work Phone: [facility] 04-27-2023 07:45-0400 Body height 160 cm Kory Smitha DO Work Phone: [facility] 04-27-2023 07:45-0400 Body temperature 98.6 [degF] Kory Smitha DO Work Phone: [facility] 04-27-2023 07:45-0400 Diastolic blood pressure 63 mm[Hg] Kory Alejandro DO Work Phone: [facility] 04-27-2023 07:45-0400 Heart rate 68 /min Kory Alejandro DO Work Phone: [facility] 04-27-2023 07:45-0400 SaO2% (BldA) [Mass fraction] 100 % Kory Alejandro DO Work Phone: [facility] 04-27-2023 07:45-0400 Systolic blood pressure 93 mm[Hg] Kory Alejandro DO Work Phone: [facility] 01-28-2023 09:40-0400 Body height 160.02 cm Kory Alejandro Work Phone: AP-Hsynugw-Rlnykbn e [place] [id number] Work Phone: 01-28-2023 09:40-0400 Body mass index (BMI) [Ratio] 21.08 kg/m2 Kory Alejandro Work Phone: AO-Dcagbvs-Heemmbd e [place] [id number] Work Phone: 01-28-2023 09:40-0400 Body surface area Derived from formula 1.55 m2 Kory Alejandro Work Phone: NP-Premixt-Bpiteyc e [place] [address] Work Phone: 01-28-2023 09:40-0400 Body temperature 97.9 [degF] Kory Alejandro Work Phone: ZL-Gfwlzcj-Extfkpa e [employer] [address] Work Phone: 01-28-2023 09:40-0400 Body weight 53.98 kg Kory Alejandro Work Phone: YM-Hukaneo-Eovrwvm [employer] [address] Work Phone: 01-28-2023 09:40-0400 Diastolic blood pressure 80 mm[Hg] Kory Alejandro Work Phone: MQ-Nthanmr-Grrcsrc e [facility] [address] Work Phone: 01-28-2023 09:40-0400 Systolic blood pressure 113 mm[Hg] Kory Alejandro Work Phone: EO-Aeuqwha-Ucrpbib e [facility] [address] Work Phone: 01-01-2023 07:58-0500 Body height 160 cm Kory Alejandro DO Work Phone: [facility] [employer] 01-01-2023 07:58-0500 Body temperature 97.9 [degF] Kory Smitha DO Work Phone: [facility] [employer] 01-01-2023 07:58-0500 Diastolic blood pressure 65 mm[Hg] Kory Smitha DO Work Phone: [facility] [employer] 01-01-2023 07:58-0500 Heart rate 86 /min Kroy Alejandro DO Work Phone: [facility] [employer] 01-01-2023 07:58-0500 SaO2% (BldA) [Mass fraction] 99 % Kory Smitha DO Work Phone: [facility] [employer] 01-01-2023 07:58-0500 Systolic blood pressure 103 mm[Hg] Kory Smitha DO Work Phone: [facility] [employer] 11-27-2022 06:56-0500 Body height 160 cm Kory Smitha DO Work Phone: [employer] 11-27-2022 06:56-0500 Body temperature 97.81 [degF] Kory Smitha DO Work Phone: [employer] 11-27-2022 06:56-0500 Diastolic blood pressure 65 mm[Hg] Kory Smitha DO Work Phone: [employer] 11-27-2022 06:56-0500 Heart rate 71 /min Kory Smitha DO Work Phone: [facility] [employer] 11-27-2022 06:56-0500 SaO2% (BldA) [Mass fraction] 98 % Kory Alejandro DO Work Phone: [facility] [employer] 11-27-2022 06:56-0500 Systolic blood pressure 100 mm[Hg] Kory Alejandro DO Work Phone: [facility] [employer] 11-26-2022 08:23-0500 Body height 160.02 cm Kory Alejandro Work Phone: DD-Ysiyhgl-Kuartvj e 2206 Work Phone: 11-26-2022 08:23-0500 Body mass index (BMI) [Ratio] 21.08 kg/m2 Kory Alejandro Work Phone: LT-Vyopedk-Rjtlatl e 2206 Work Phone: 11-26-2022 08:23-0500 Body surface area Derived from formula 1.55 m2 Kory Alejandro Work Phone: RS-Rhcacdz-Szdpdgr e 2206 Work Phone: 11-26-2022 08:23-0500 Body temperature 97.3 [degF] Kory Alejandro Work Phone: YB-Qensmas-Jfyhibd e 2206 Work Phone: 11-26-2022 08:23-0500 Body weight 53.98 kg Kory Alejandro Work Phone: KG-Xrwadgh-Yfcfatj e 2206 Work Phone: 11-26-2022 08:23-0500 Diastolic blood pressure 71 mm[Hg] Kory Alejandro Work Phone: FL-Rckfmqb-Dubvqon e 2206 Work Phone: 11-26-2022 08:23-0500 Heart rate 76 /min Kory Alejandro Work Phone: ED-Ipsvlme-Mqbhtlb e 2206 Work Phone: 11-26-2022 08:23-0500 Systolic blood pressure 107 mm[Hg] Kory Alejandro Work Phone: XJ-Tlxutyy-Rcvhyaj e 2207 Work Phone: 06-30-2022 08:17-0400 Body height 161.3 cm Pilo Ludwig Jr., MD Work Phone: [facility] 06-30-2022 08:17-0400 Body weight 54.43 kg Pilo Ludwig Jr., MD Work Phone: [facility] 06-30-2022 08:17-0400 Respiratory rate 18 /min Pilo Ludwig Jr., MD Work Phone: [facility] 05-28-2022 08:48-0400 Body height 160.02 cm Kory Alejandro Work Phone: RO-Rctlorg-Aveir [place] Work Phone: 05-28-2022 08:48-0400 Diastolic blood pressure 69 mm[Hg] Kory Smitha Work Phone: FC-Xbwaojn-Vlwdk [place] Work Phone: 05-28-2022 08:48-0400 Heart rate 85 /min Kory Smitha Work Phone: HN-Zxeulyx-Qmswf [place] Work Phone: 05-28-2022 08:48-0400 Systolic blood pressure 105 mm[Hg] Kory Smitha Work Phone: LB-Ngnrxbw-Shkms [place] Work Phone: 04-24-2022 09:28-0400 Body height 160.02 cm Kory Smitha Work Phone: MW-Drjmeyecv-Hgvnq ban [address] [facility] Work Phone: 04-24-2022 09:28-0400 Body mass index (BMI) [Ratio] 21.08 kg/m2 Kory Smitha Work Phone: YG-Xpttpurcs-Haowq ban [facility] Work Phone: 04-24-2022 09:28-0400 Body surface area Derived from formula 1.55 m2 Kory Alejandro Work Phone: PL-Rcnsjbhqr-Uxoup ban [address] [facility] Work Phone: 04-24-2022 09:28-0400 Body weight 53.98 kg Kory Alejandro Work Phone: RN-Gnhbqhsei-Fgubq ban [address] [facility] Work Phone: 04-24-2022 09:28-0400 Diastolic blood pressure 68 mm[Hg] Kory Alejandro Work Phone: TR-Botecwipz-Hnqvp ban [address] [facility] Work Phone: 04-24-2022 09:28-0400 Diastolic blood pressure 63 mm[Hg] Kory Alejandro Work Phone: IV-Tbjthfcae-Ddxnl ban [address] [facility] Work Phone: 04-24-2022 09:28-0400 Diastolic blood pressure 70 mm[Hg] Kory Alejandro Work Phone: YK-Aynpqazsy-Qonmp ban [address] [facility] Work Phone: 04-24-2022 09:28-0400 Systolic blood pressure 110 mm[Hg] Kory Alejandro Work Phone: SV-Dwlumeczo-Gwzhe ban [address] [facility] Work Phone: 04-24-2022 09:28-0400 Systolic blood pressure 104 mm[Hg] Kory Alejandro Work Phone: VD-Styzlaasj-Ywfuh ban 204 [facility] Work Phone: 04-24-2022 09:28-0400 Systolic blood pressure 99 mm[Hg] Kory Alejadnro Work Phone: ET-Pcbpmpqro-Kpxyi ban [address] [facility] Work Phone: 04-24-2022 09:28-0400 72 1 Kory Alejandro Work Phone: RH-Elnedginf-Rocqm ban 204 [facility] Work Phone: Comment on above: PUL[employer]Ly 04-24-2022 09:28-0400 69 1 Kory Alejandro Work Phone: RM-Yjutvafto-Zmvdv ban [address] [facility] Work Phone: Comment on above: PULRateSit 04-24-2022 09:28-0400 82 1 Kory Alejandro Work Phone: RM-Smzfflxhp-Yvskc ban 204 [facility] Work Phone: Comment on above: [employer]UL[employer]St 03-05-2022 08:35-0400 Body height 160.02 cm Kory Alejandro Work Phone: WI-Ktmrpbe-Qkcex MAC2 303 Work Phone: 03-05-2022 08:35-0400 Body mass index (BMI) [Ratio] 21.08 kg/m2 Kory Alejandro Work Phone: KK-Tctsdcx-Kpksx MAC2 303 Work Phone: 03-05-2022 08:35-0400 Body surface area Derived from formula 1.55 m2 Kory Alejandro Work Phone: IR-Vdfzdye-Yrsua MAC2 303 Work Phone: 03-05-2022 08:35-0400 Body weight 53.98 kg Kory Alejandro Work Phone: MV-Ctomtax-Kwfzq MAC2 303 Work Phone: 03-05-2022 08:35-0400 Diastolic blood pressure 73 mm[Hg] Kory Alejandro Work Phone: UW-Yopdjrj-Jbrbe MAC2 303 Work Phone: 03-05-2022 08:35-0400 Heart rate 89 /min Kory Alejandro Work Phone: UI-Lmvtobk-Flsty MAC2 303 Work Phone: 03-05-2022 08:35-0400 Systolic blood pressure 121 mm[Hg] Kory Alejandro Work Phone: MS-Xxeadsa-Ryknd MAC2 303 Work Phone: 03-04-2022 15:27-0400 Diastolic blood pressure 70 mm[Hg] Kory Alejandro Work Phone: EK-Pjjyqqq-Dtadh MAC2 303 Work Phone: 03-04-2022 15:27-0400 Heart rate 79 /min Kory Alejandro Work Phone: YZ-Wiauwzu-Ejqly MAC2 303 Work Phone: 03-04-2022 15:27-0400 SaO2% (BldA) [Mass fraction] 99 % Kory Alejandro Work Phone: WB-Swhwdgk-Rczur MAC2 303 Work Phone: 03-04-2022 15:27-0400 Systolic blood pressure 104 mm[Hg] Kory Alejandro Work Phone: GZ-Lhqsdam-Ujoao MAC2 303 Work Phone: 02-19-2022 08:55-0400 Body height 160.02 cm Kory Alejandro Work Phone: FJ-Hvrzkso-Wuakxot e [place] [address] Work Phone: 02-19-2022 08:55-0400 Body temperature 97.3 [degF] Kory Alejandro Work Phone: LL-Ponirqm-Gkjxlzt e [employer] [address] Work Phone: 02-19-2022 08:55-0400 Diastolic blood pressure 65 mm[Hg] Kory Alejandro Work Phone: MA-Phtzzel-Lrfkgrw e [employer] [address] Work Phone: 02-19-2022 08:55-0400 Heart rate 73 /min Kory Alejandro Work Phone: VK-Ywrlsxg-Bmmcfao e [facility] [address] Work Phone: 02-19-2022 08:55-0400 Systolic blood pressure 101 mm[Hg] Kory Alejandro Work Phone: BJ-Rzqxhdu-Loqcshg e [facility] [address] Work Phone: 12-25-2021 09:53-0500 Body height 161.29 cm Kory Alejandro Work Phone: KY-Bugpyew-Pamfk MAC2 303 Work Phone: 12-25-2021 09:53-0500 Body mass index (BMI) [Ratio] 20.75 kg/m2 Kory Alejandro Work Phone: AJ-Ndleoxs-Klqyy MAC2 303 Work Phone: 12-25-2021 09:53-0500 Body surface area Derived from formula 1.56 m2 Kory Alejandro Work Phone: FI-Xmsrmot-Omhnd MAC2 303 Work Phone: 12-25-2021 09:53-0500 Body weight 53.98 kg Kory Alejandro Work Phone: VY-Bagubwj-Hislk MAC2 303 Work Phone: 12-25-2021 09:53-0500 Diastolic blood pressure 79 mm[Hg] Kory Alejandro Work Phone: JW-Vdbkbqe-Tuowo MAC2 303 Work Phone: 12-25-2021 09:53-0500 Heart rate 85 /min Kory Alejandro Work Phone: HN-Caifgfq-Jjhxg MAC2 303 Work Phone: 12-25-2021 09:53-0500 Systolic blood pressure 121 mm[Hg] Kory Alejandro Work Phone: CE-Sjelzai-Qogrv MAC2 303 Work Phone: 11-27-2021 10:23-0500 Body height 161.29 cm Kory Alejandro Work Phone: WE-Kgikayb-Zutyl MAC2 303 Work Phone: 11-27-2021 10:23-0500 Body mass index (BMI) [Ratio] 20.75 kg/m2 Kory Alejandro Work Phone: DP-Gsvugyt-Rpxco MAC2 303 Work Phone: 11-27-2021 10:23-0500 Body surface area Derived from formula 1.56 m2 Kory Alejandro Work Phone: VG-Qqwapgn-Iwchm MAC2 303 Work Phone: 11-27-2021 10:23-0500 Body weight 53.98 kg Kory Alejandro Work Phone: OA-Ubjogxh-Aptst MAC2 303 Work Phone: 11-27-2021 10:23-0500 Diastolic blood pressure 82 mm[Hg] Kory Alejandro Work Phone: JE-Kjoqsdy-Ytkal MAC2 303 Work Phone: 11-27-2021 10:23-0500 Heart rate 77 /min Kory Alejandro Work Phone: ZN-Qaxdwmr-Kldku MAC2 303 Work Phone: 11-27-2021 10:23-0500 Systolic blood pressure 119 mm[Hg] Kory Alejandro Work Phone: HI-Rnafroy-Ekrlh MAC2 303 Work Phone: 11-06-2021 09:12-0500 Body height 162.56 cm Kory Alejandro Work Phone: [facility] 309 Work Phone: 11-06-2021 09:12-0500 Body mass index (BMI) [Ratio] 20.25 kg/m2 Kory Alejandro Work Phone: [facility] MAC[facility] 309 Work Phone: 11-06-2021 09:12-0500 Body surface area Derived from formula 1.56 m2 Kory Alejandro Work Phone: [facility] MAC2 309 Work Phone: 11-06-2021 09:12-0500 Body weight 53.52 kg Kory Alejandro Work Phone: [facility] MAC[facility] 309 Work Phone: 11-06-2021 09:12-0500 Diastolic blood pressure 76 mm[Hg] Kory Alejandro Work Phone: [facility] MAC[address] 309 Work Phone: 11-06-2021 09:12-0500 Heart rate 95 /min Kory Alejandro Work Phone: [facility] MAC[facility] 309 Work Phone: 11-06-2021 09:12-0500 Respiratory rate 18 /min Kory Alejandro Work Phone: [facility] MAC[address] 309 Work Phone: 11-06-2021 09:12-0500 SaO2% (BldA) [Mass fraction] 97 % Kory Alejandro Work Phone: [facility] MAC[address] 309 Work Phone: 11-06-2021 09:12-0500 Systolic blood pressure 129 mm[Hg] Kory Alejandro Work Phone: [facility] MAC[address] 309 Work Phone: 10-09-2021 08:41-0500 Body height 162.56 cm Kory Alejandro Work Phone: CF-Dinenef-Fkcbbtg e [employer] [address] Work Phone: 10-09-2021 08:41-0500 Body mass index (BMI) [Ratio] 20.25 kg/m2 Kory Alejandro Work Phone: PM-Jytqwlh-Ccujivk e [employer] [address] Work Phone: 10-09-2021 08:41-0500 Body surface area Derived from formula 1.56 m2 Kory Alejandro Work Phone: GM-Wnphozm-Wzyijrc e [employer] [address] Work Phone: 10-09-2021 08:41-0500 Body temperature 98.1 [degF] Kory Alejandro Work Phone: HZ-Ifuigvu-Xghegmm e [employer] [address] Work Phone: 10-09-2021 08:41-0500 Body weight 53.52 kg Kory Alejandro Work Phone: VF-Gusalpq-Eigzxjk e [place] [address] Work Phone: 10-09-2021 08:41-0500 Diastolic blood pressure 75 mm[Hg] Kory Alejandro Work Phone: KN-Kvmtcpn-Mvgonme e [employer] [address] Work Phone: 10-09-2021 08:41-0500 Heart rate 80 /min Kory Alejandro Work Phone: KO-Fqlbsaw-Mncgyye e [employer] [address] Work Phone: 10-09-2021 08:41-0500 Systolic blood pressure 116 mm[Hg] Kory Alejandro Work Phone: OG-Uxfsbdk-Kkjnytw e [employer] [address] Work Phone: 10-02-2021 09:49-0500 8 1 Kory Alejandro Work Phone: [facility] Work Phone: Comment on above: [employer] 08-28-2021 07:38-0400 Diastolic blood pressure 81 mm[Hg] Kory Alejandro Work Phone: [facility] 300 DO Work Phone: 08-28-2021 07:38-0400 Heart rate 101 /min Kory Alejandro Work Phone: [facility] 300 DO Work Phone: 08-28-2021 07:38-0400 Systolic blood pressure 126 mm[Hg] Kory Alejandro Work Phone: [facility] 300 DO Work Phone: 08-28-2021 07:38-0400 Systolic blood pressure pt refused weight so no bmi Kory Alejandro Work Phone: [facility] 300 DO Work Phone: 08-20-2021 12:26-0400 Diastolic blood pressure 68 mm[Hg] Kory Alejandro Work Phone: EE-Xzsqeafcfg-Qgmz na Work Phone: 08-20-2021 12:26-0400 Heart rate 96 /min Kory Alejandro Work Phone: GV-Oxrafdieko-Tfvq na Work Phone: 08-20-2021 12:26-0400 SaO2% (BldA) [Mass fraction] 98 % Kory Alejandro Work Phone: CU-Zslprllvon-Jkyv na Work Phone: 08-20-2021 12:26-0400 Systolic blood pressure 128 mm[Hg] Kory Smitha Work Phone: MO-Zjgrnhxjcm-Cfha na Work Phone: 07-24-2021 11:55-0400 Body height 162.56 cm Kory Alejandro Work Phone: GX-Lkbbvqs-Vdqmdgq e [employer] [address] Work Phone: 07-24-2021 11:55-0400 Body mass index (BMI) [Ratio] 20.25 kg/m2 Kory Alejandro Work Phone: XT-Frtcbvz-Gvsvalq e [employer] [address] Work Phone: 07-24-2021 11:55-0400 Body surface area Derived from formula 1.56 m2 Kory Alejandro Work Phone: QU-Akvnpio-Envrigo e [employer] [address] Work Phone: 07-24-2021 11:55-0400 Body temperature 98.1 [degF] Kory Alejandro Work Phone: ZT-Jnwxlcb-Qbbljmy e [employer] [address] Work Phone: 07-24-2021 11:55-0400 Body weight 53.52 kg Kory Alejandro Work Phone: ZO-Okumbco-Ftcqylh e [employer] [address] Work Phone: 07-24-2021 11:55-0400 Diastolic blood pressure 72 mm[Hg] Kory Alejandro Work Phone: UE-Fttosws-Jfmnnpn e [employer] [address] Work Phone: 07-24-2021 11:55-0400 Heart rate 77 /min Kory Alejandro Work Phone: TE-Ubybjwo-Abmndif e [employer] [address] Work Phone: 07-24-2021 11:55-0400 Systolic blood pressure 113 mm[Hg] Kory Alejandro Work Phone: HU-Ayjdjor-Itwcgtc e [employer] [address] Work Phone: 07-04-2021 14:14-0400 Body height 162.56 [...] height 161.29 cm Kory Alejandro Work Phone: DO-Lvypknp-Zdydlhn e [employer] [address] Work Phone: 04-21-2021 08:16-0400 Body mass index (BMI) [Ratio] 20.92 kg/m2 Kory Alejandro Work Phone: UJ-Eiipeyt-Ykartxy e [employer] [address] Work Phone: 04-21-2021 08:16-0400 Body surface area Derived from formula 1.57 m2 Kory Alejandro Work Phone: BJ-Sugxgaw-Aeahdci e [employer] [address] Work Phone: 04-21-2021 08:16-0400 Body temperature 36.7 [degF] Kory Alejandro Work Phone: BZ-Gcjtmik-Cajkilu e [employer] [address] Work Phone: 04-21-2021 08:16-0400 Body weight 54.43 kg Kory Alejandro Work Phone: KE-Pwvqthy-Rvollgv e [employer] [address] Work Phone: 04-21-2021 08:16-0400 Diastolic blood pressure 77 mm[Hg] Kory Alejandro Work Phone: GP-Sdbplvf-Zcmutch e [employer] [address] Work Phone: 04-21-2021 08:16-0400 Heart rate 85 /min Kory Alejandro Work Phone: PZ-Kcxjynk-Cxnafjd e [employer] [address] Work Phone: 04-21-2021 08:16-0400 Respiratory rate 18 /min Kory Alejandro Work Phone: AB-Nkoyvtu-Stccyzv e [employer] [address] Work Phone: 04-21-2021 08:16-0400 Systolic blood pressure 124 mm[Hg] Kory Alejandro Work Phone: TO-Chotmiv-Tcjzbaj e [employer] [address] Work Phone: 04-10-2021 13:15-0400 Body height 160.02 cm Kory Alejandro Work Phone: VE-Zepzuon-Ihsklmd e [employer] [address] Work Phone: 04-10-2021 13:15-0400 Body mass index (BMI) [Ratio] 20.73 kg/m2 Kory Alejandro Work Phone: LO-Xejlwxx-Efqsxsp e [employer] [address] Work Phone: 04-10-2021 13:15-0400 Body surface area Derived from formula 1.54 m2 Kory Alejandro Work Phone: HB-Rkhygbu-Xvahbyn e [employer] [address] Work Phone: 04-10-2021 13:15-0400 Body temperature 98.6 [degF] Kory Alejandro Work Phone: EZ-Iowopeo-Eqxqhpl e [employer] [address] Work Phone: 04-10-2021 13:15-0400 Body weight 53.07 kg Kory Alejandro Work Phone: VZ-Khszkdq-Hrduqqb e [employer] [address] Work Phone: 04-10-2021 13:15-0400 Diastolic blood pressure 68 mm[Hg] Kory Alejandro Work Phone: HE-Iladpwo-Wqqxplu e [employer] [address] Work Phone: 04-10-2021 13:15-0400 Heart rate 76 /min Kory Alejandro Work Phone: TL-Wlrtqlx-Omlfcql e [employer] [address] Work Phone: 04-10-2021 13:15-0400 Systolic blood pressure 105 mm[Hg] Kory Alejandro Work Phone: LG-Ddfrast-Bffpqex e [facility] [address] Work Phone: 03-26-2021 09:25-0400 Body temperature 100.22 [degF] Kory Alejandro Other Phone: [facility] 03-26-2021 09:25-0400 Diastolic blood pressure 70 mm[Hg] Kory Alejandro Other Phone: [facility] 03-26-2021 09:25-0400 Heart rate 86 /min Kory Alejandro Other Phone: [facility] 03-26-2021 09:25-0400 Respiratory rate 20 /min Kory Alejandro Other Phone: [facility] 03-26-2021 09:25-0400 SaO2% (BldA) [Mass fraction] 96 % Kory Alejandro Other Phone: [facility] 03-26-2021 09:25-0400 Systolic blood pressure 115 mm[Hg] Kory Alejandro Other Phone: [facility] 01-27-2021 23:40-0400 Body Temperature 97.9 [degF] Dangelo [...] 10-05-2019 20:25-0500 Body Temperature 97.59 [degF] Saleem [facility] [place] 10-05-2019 20:25-0500 BP Diastolic 97 mm[Hg] [facility] [place] 10-05-2019 20:25-0500 BP Systolic 143 mm[Hg] [facility] [place] 10-05-2019 20:25-0500 Pulse (Heart Rate) 71 /min [facility] [place] 10-05-2019 20:25-0500 Pulse Oximetry 100 % [facility] [place] 10-05-2019 20:25-0500 Respiratory Rate 18 /min Saleem [facility] [place] 06-24-2019 22:00-0400 BP Diastolic 78 mm[Hg] [facility] [facility] [place] 06-24-2019 22:00-0400 BP Systolic 122 mm[Hg] [facility] [place] 06-24-2019 22:00-0400 Pulse (Heart Rate) 70 /min [facility] [place] 06-24-2019 22:00-0400 Pulse Oximetry 100 % [facility] [place] 06-24-2019 22:00-0400 Respiratory Rate 14 /min [facility] [place] 06-24-2019 21:11-0400 BMI (Body Mass Index) 25.15 kg/m2 [facility] [place] 06-24-2019 21:11-0400 Body Temperature 98.01 [degF] [facility] [place] 06-24-2019 21:11-0400 Body weight 64.41 kg Igor [facility]ins[facility] [place] 06-24-2019 21:11-0400 Height 160 cm Igor [facility] [place] Encounters Encounter Date Encounter Type Care Provider Facility Start: 09-04-2025 ambulatory REHAN MCRAE Facility :[facility] Start: 09-03-2025 End: 09-03-[address] [facility] Start: 08-29-2025 End: 08-29-2025 ambulatory [facility] Start: 08-29-2025 End: 08-29-2025 ambulatory [facility] Ambulatory Start: 08-29-2025 End: 08-29-2025 ambulatory [facility] Start: 08-02-2025 End: 08-02-2025 ambulatory [facility] Ambulatory Start: 07-23-2025 End: 07-23-2025 ambulatory [facility] Ambulatory Start: 07-05-2025 End: 07-05-2025 ambulatory [facility] Ambulatory Start: 07-04-2025 End: 07-04-2025 ambulatory [facility] Ambulatory Start: 06-22-2025 End: 06-22-2025 ambulatory [facility] Start: 06-15-2025 End: 06-15-2025 ambulatory PILO LUDWIG JR Facility:[facility] Start: 06-08-2025 End: 06-08-2025 ambulatory ROCKY TATUM Facility:[facility] Start: 05-29-2025 End: 05-29-2025 ambulatory ROCKY TATUM Facility:[facility] Start: 05-22-2025 End: 05-22-2025 ambulatory PILO LUDWIG JR Facility:[facility] Start: 05-08-2025 End: 05-08-2025 ambulatory [facility] Start: 04-20-2025 End: 04-20-2025 ambulatory PILO LUDWIG JR Facility:[facility] Start: 04-09-2025 End: 04-09-2025 ambulatory PILO LUDWIG JR Facility:[facility] Start: 04-03-2025 End: 04-03-2025 ambulatory [facility] Ambulatory Start: 04-02-2025 End: 04-02-2025 ambulatory [facility] Start: 03-29-2025 End: 03-29-2025 ambulatory [facility] Ambulatory Start: 03-05-2025 End: 03-05-[address] [facility] Start: 02-22-2025 End: 02-22-2025 ambulatory [facility] Start: 02-09-2025 End: 02-09-2025 ambulatory [facility] Start: 02-08-2025 End: 02-08-2025 ambulatory [facility] Start: 01-25-2025 End: 01-25-2025 ambulatory [facility] Ambulatory Start: 01-09-2025 End: 01-09-2025 ambulatory SELF [facility] Start: 01-01-2025 End: 01-01-2025 ambulatory [facility] Start: 01-01-2025 End: 01-01-2025 ambulatory [facility] Amb[facility] Start: 01-01-2025 End: 01-01-2025 ambulatory [facility] Start: 11-06-2024 End: 11-13-2024 Telephone encounter Annetta Bhatia MA [facility] [place] Comment on above: Referral (Joel - Dr Nichols) Start: 10-30-2024 End: 10-30-2024 ambulatory NO ASSIGNED PCP GENERIC PROVIDER [facility] Start: 10-26-2024 End: 10-26-2024 ambulatory [facility] Ambulatory Start: 10-23-2024 End: 10-23-2024 ambulatory NO ASSIGNED PCP GENERIC PROVIDER [facility] Start: 10-19-2024 End: 10-19-2024 [facility]ulatory [facility] Start: 10-19-2024 End: 10-19-2024 Office outpatient visit 15 minutes Kory Alejandro DO Work Phone: [facility] [place] Comment on above: Complex regional jarad n syndrome type 1 of right lower extremity (Primary Dx); MCTD (mixed connective tissue disease) (HCC); Hypoglycemia; Other migraine without status migrainosus, not intractable Start: 10-19-2024 End: 10-19-2024 [facility] Start: 10-08-2024 End: 10-09-2024 Refill Kory Tom Luisnikos DO Work Phone: [facility] [place] Start: 09-25-2024 End: 09-25-2024 ambulatory [facility] Start: 09-21-2024 End: 09-21-2024 ambulatory [facility] Ambulatory Start: 09-19-2024 End: 09-19-2024 ambulatory NO ASSIGNED PCP GENERIC PROVIDER [facility] Start: 08-27-2024 End: 08-28-2024 Refill Kory Vaishali Javon DO Work Phone: [facility] [place] Start: 08-11-2024 End: 08-11-2024 ambulatory [facility] Start: 07-27-2024 End: 07-27-2024 Refill Kory Tom Javon DO Work Phone: [facility] [place] Start: 07-23-2024 End: 07-23-2024 Orders Only Kory Tom Javon DO Work Phone: [facility] [place] Comment on above: Hypoglycemia followi ng gastrointestinal surgery (Primary Dx) Start: 07-12-2024 End: 07-19-2024 Telephone encounter Kory Vaishali Javon DO Work Phone: [facility] [place] Comment on above: Appointment Start: 07-07-2024 End: 07-07-2024 Telephone encounter Kory Vaishali Javon DO Work Phone: [facility] Start: 07-07-2024 End: 07-07-2024 Office outpatient visit 15 minutes Kory Alejandro DO Work Phone: [facility] Comment on above: Preoperative clearan ce (Primary Dx); Complex regional pain syndrome type 1 of right lower extremity; OAB (overactive bladder); History of bariatric surgery; Screening-pulmonary TB; Moderate right ankle sprain, subsequent encounter Start: 07-07-2024 End: 07-07-2024 Preoperative state Kory Tom Javon DO Work Phone: [facility] Start: 06-05-2024 End: 06-06-2024 Refill Kory Tom Javon DO Work Phone: [facility] Start: 05-16-2024 End: 05-16-2024 Office outpatient visit 15 minutes Kory Vaishali Alejandro DO Work Phone: [facility] Comment on above: Test anxiety (Primar y Dx); Complex regional pain syndrome type 1 of right lower extremity Start: 03-29-2024 Telephone encounter Jasper estrada DO Work Phone: [facility] Clinical Communication Comment on above: Appointment Request Start: 01-21-2024 End: 01-22-2024 Emergency department patient visit CLINT JARAMILLO MD~[id number] [facility] Start: 01-05-2024 End: 01-05-2024 Office outpatient visit 15 minutes Kory Vaishali Alejandro DO Work Phone: [facility] Comment on above: Complex regional jarad n syndrome type 1 of right lower extremity (Primary Dx); Hypotension due to medication; Other migraine without status migrainosus, not intractable; Other fatigue Start: 10-08-2023 End: 10-08-2023 Office outpatient visit 15 minutes Kory Tom Javon DO Work Phone: [facility] Comment on above: Hypotension due to m edication (Primary Dx); Ganglion of hip, right; Complex regional pain syndrome type 1 of right lower extremity; Other migraine without status migrainosus, not intractable Start: 09-01-2023 End: 09-02-2023 ambulatory [facility] Facility:[id number] Start: 08-02-2023 Telephone encounter Kory carr DO Work Phone: [facility] Comment on above: Referral (Dr Mtz ) Start: 08-01-2023 Chart Update Kory Tom Karla augustine Work Phone: [facility] [employer] [id number] Work Phone: Start: 07-30-2023 End: 07-30-2023 Office outpatient visit 15 minutes Kory Tom Luisnikos DO Work Phone: [facility] Comment on above: Complex regional jarad n syndrome type 1 of right lower extremity (Primary Dx); History of bariatric surgery; Anxiety and depression; Sprain of medial collateral ligament of right knee, subsequent encounter Start: 07-29-2023 Office outpatient vi sit 15 minutes Kory Tom Luisnikos Work Phone: [place] [id number] Work Phone: Start: 07-29-2023 Patient encounter procedure Kory Tom Luisnikos Work Phone: [facility] [id number] Work Phone: Start: 07-29-2023 ambulatory [facility] Facility:1 [id number] Start: 07-23-2023 Chart Update Kory gustafson Work Phone: [place] [address] Work Phone: Start: 06-29-2023 AUDIT Kory Tom Karla augustine Work Phone: [place] [address] Work Phone: Start: 06-07-2023 Orders Only Kory Tom Karla senanikos DO Work Phone: [facility] Comment on above: Tuberculosis screeni ng (Primary Dx) Start: 06-02-2023 End: 06-02-2023 Patient encounter procedure Kory Tom Javon DO Work Phone: [facility] Start: 06-02-2023 End: 06-02-2023 Periodic preventive med est patient 40-64yrs Kory Alejandro DO Work Phone: [facility] Comment on above: Annual physical exam (Primary Dx); Osteopenia, unspecified location; Other migraine without status migrainosus, not intractable; Complex regional pain syndrome type 1 of right lower extremity; Primary osteoarthritis of right hip; History of renal calculi Start: 05-19-2023 End: 05-19-2023 Office outpatient visit 15 minutes Kory Tom Luisnikos DO Work Phone: [facility] Comment on above: Cataract of right ey e, unspecified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 03/2021 Dr. Hercules COLONOSCOPY 12/2017 [place] - small polyp - rech due 2022- pt defering CYSTOCELE REPAIR 06/2020 EXPLORATORY LAPAROTOMY 1996 endometriosis GASTRIC BYPASS 2018 in [place] OTHER SURGICAL HISTORY tubal reversal PARTIAL HYSTERECTOMY 06/2020 still has ovaries/ [place]- Dr. Quesada Aposalist PELVIC LAPAROSCOPY 03/[address] Barbosa RECTOCELE REPAIR 06/2020 [facility] SALPINGECTOMY 06/2020 TONSILLECTOMY AND ADENOIDECTOMY (HISTORICAL) TOTAL HIP ARTHROPLASTY Right 09/2020 Dr. Duron TUBAL LIGATION 1987 UPPER GASTROINTESTINAL ENDOSCOPY 11/[address] Mtz UPPER GASTROINTESTINAL ENDOSCOPY 2017 [place]- mild gastritis UPPER GASTROINTESTINAL ENDOSCOPY 01/2022 Dr. Gaxiola, [facility] Family History Problem Relation Name Age of [...] to her sensitivity. documented in this encounter [facility] 10-09-2024 Telephone encounter Note Recent Visits Date Type Provider Dept 07/07/24 Office Visit Kory Alejandro DO [facility] 05/16/24 Office Visit Kory Alejandro DO [facility] 01/05/24 Office Visit Kory Alejandro DO [facility] Showing recent visits within past 365 [...] found for: NA, K, EGFR, BUN, CREATININE [facility] 10-09-2024 Miscellaneous Notes Recent Visits Date Type [...] EGFR, BUN, CREATININE documented in this encounter [facility] 08-28-2024 Telephone encounter Note Recent Visits Date [...] recent labs completed in chart? No None [facility] 08-28-2024 Miscellaneous Notes Recent Visits Date Type [...] chart? No None documented in this encounter [facility] 07-27-2024 Telephone encounter Note Recent Visits Date [...] Most recent labs completed in chart? N/A [facility] 07-27-2024 Miscellaneous Notes Recent Visits Date Type [...] in chart? N/A documented in this encounter [facility] 07-13-2024 Telephone encounter Note Noted [facility] 07-13-2024 Miscellaneous Notes Noted Name of caller: Anca Contact phone number: [phone] Relationship to Patient: patient Provider: Javon Practice: [facility] Chief Complaint/Reason for Call: Patient called in [...] their call: N/A documented in this encounter [facility] 07-12-2024 Telephone encounter Note Name of caller: Anca Contact phone number: [phone] Relationship to Patient: patient Provider: Javon Practice: [facility] Chief Complaint/Reason for Call: Patient called in [...] business hours to return their call: N/A [facility] 07-07-2024 Telephone encounter Note Pt did not want to pay co-pay till after visit [facility] 07-07-2024 Miscellaneous Notes Pt did not want to pay co-pay till after visit documented in this encounter [facility] 07-07-2024 History of Present illness Narrative Images from the original note were not included. [facility] [address] [place] [address] [address] [facility] [address] Visit type: Established Patient Reason [...] of breath Other reaction(s): Tongue swelling Walnuts Dyer Hives, Itching and Shortness of breath Other [...] the evening. Collagen . vit A,C and W-mprmlz-rxusljic (Ocuvite) tablet [DISCONTINUED] gabapentin (Neurontin) 300 MG [...] History: Procedure Laterality Date BLADDER REPAIR 06/2020 [facility] CATARACT EXTRACTION 06/2023 CHOLECYSTECTOMY 03/2021 Dr. Hercules COLONOSCOPY 12/2017 [place] - small polyp - rech due 2022- pt defering CYSTOCELE REPAIR 06/2020 EXPLORATORY LAPAROTOMY 1996 endometriosis GASTRIC BYPASS 2019 in [place] OTHER SURGICAL HISTORY tubal reversal PARTIAL HYSTERECTOMY 06/2020 still has ovaries/ [place]- Dr. Quesada Aposalist PELVIC LAPAROSCOPY 03/[address] Barbosa RECTOCELE REPAIR 06/2020 [facility] SALPINGECTOMY 06/2020 TONSILLECTOMY AND ADENOIDECTOMY (HISTORICAL) TOTAL HIP ARTHROPLASTY Right 09/2020 Dr. Duron TUBAL LIGATION 1987 UPPER GASTROINTESTINAL ENDOSCOPY 11/[address] Mtz UPPER GASTROINTESTINAL ENDOSCOPY 2018 [place]- mild gastritis UPPER GASTROINTESTINAL ENDOSCOPY 01/2022 Dr. Gaxiola, [facility] Family History Problem Relation Name Age of [...] available to review documented in this encounter [facility] [employer] 07-07-2024 Instructions Kory Alejandro DO - 07/07/2024 7:30 AM EDT Please have dot compliance specialist send copy of lab work and exam documented in this encounter [facility] [employer] [facility] 06-06-2024 Telephone encounter Note Recent Visits Date [...] controlled medications from any other provider? N/A [facility] 06-06-2024 Miscellaneous Notes Recent Visits Date Type Provider Dept 05/16/24 Office Visit Kory Alejandro, DO [facility] 01/05/24 Office Visit Kory Alejanrdo, DO [facility] 10/08/23 Office Visit [...] other provider? N/A documented in this encounter [facility] 05-16-2024 History of Present illness Narrative Images from the original note were not included. [facility] [address] [place] [address] [address] [facility] [id number] Visit type: Established Patient Reason for Visit: Other (Test anxiety/Pt refused to get weighed) Assessment / Plan: Anac was seen today for other. Diagnoses and [...] of breath Other reaction(s): Tongue swelling Walnuts Dyer Hives, Itching and Shortness of breath Other [...] the evening. Collagen . vit A,C and D-dkqdoy-tblyehir (Ocuvite) tablet No current facility-administered medications on [...] History: Procedure Laterality Date BLADDER REPAIR 06/2020 [facility] CATARACT EXTRACTION 06/2023 CHOLECYSTECTOMY 03/2021 Dr. Hercules COLONOSCOPY 12/2017 [place] - small polyp - rech due 2022- pt defering CYSTOCELE REPAIR 06/2020 EXPLORATORY LAPAROTOMY 1996 endometriosis GASTRIC BYPASS 2019 in [place] OTHER SURGICAL HISTORY tubal reversal PARTIAL HYSTERECTOMY 06/2020 still has ovaries/ [place]- Dr. Quesada Aposalist PELVIC LAPAROSCOPY 03/[address] Barbosa RECTOCELE REPAIR 06/2020 [facility] SALPINGECTOMY 06/2020 TONSILLECTOMY AND ADENOIDECTOMY (HISTORICAL) TOTAL HIP ARTHROPLASTY Right 09/2020 Dr. Duron TUBAL LIGATION 1987 UPPER GASTROINTESTINAL ENDOSCOPY 11/[address] Mtz UPPER GASTROINTESTINAL ENDOSCOPY 2017 [place]- mild gastritis UPPER GASTROINTESTINAL ENDOSCOPY [facility] Relation Name Age [...] hepatosplenomegaly or ascites. documented in this encounter [facility] 03-29-2024 Telephone encounter Note Name of caller: Anca Contact phone number: [phone] Relationship to Patient: patient Provider: Dr. Fields Practice: [facility] Chief Complaint/Reason for Call: Patient called requesting information and possibly scheduling new patient appointment for workers comp. Patient requesting call back from office. Please Advise Best time of day caller can be reached: any Patient advised that office/PCP has 24-48 business hours to return their call: No [facility] 03-29-2024 Miscellaneous Notes Name of caller: Anca Contact phone number: [phone] Relationship to Patient: patient Provider: Dr. Fields Practice: [facility] Chief Complaint/Reason for Call: Patient called requesting information and possibly scheduling new patient appointment for workers comp. Patient requesting call back from office. Please Advise Best time of day caller can be reached: any Patient advised that office/PCP has 24-48 business hours to return their call: No documented in this encounter [facility] 01-05-2024 History of Present illness Narrative Images from the original note were not included. [facility] [address] [place] [address] [address] [facility] [id number] Visit type: Established Patient Reason [...] changes clinically. Of note apparently saw her dot compliance specialist for some type of lab work for [...] of breath Other reaction(s): Tongue swelling Walnuts Dyer Hives, Itching and Shortness of breath Other [...] the evening. Collagen . vit A,C and E-qgsocz-ukkjkcxv (Ocuvite) tablet [DISCONTINUED] cloNIDine (Catapres) 0.1 MG [...] History: Procedure Laterality Date BLADDER REPAIR 06/2020 [facility] CATARACT EXTRACTION 06/2023 CHOLECYSTECTOMY 03/2021 Dr. Hercules COLONOSCOPY 12/2017 [place] - small polyp - rech due 2022- pt defering CYSTOCELE REPAIR 06/2020 EXPLORATORY LAPAROTOMY 1996 endometriosis GASTRIC BYPASS 2018 in [place] OTHER SURGICAL HISTORY tubal reversal PARTIAL HYSTERECTOMY 06/2020 still has ovaries/ [place]- Dr. Quesada Aposalist PELVIC LAPAROSCOPY 03/[address] Barbosa RECTOCELE REPAIR 06/2020 [facility] SALPINGECTOMY 06/2020 TONSILLECTOMY AND ADENOIDECTOMY (HISTORICAL) TOTAL HIP ARTHROPLASTY Right 09/2020 Dr. Duron TUBAL LIGATION 1987 UPPER GASTROINTESTINAL ENDOSCOPY 11/[address] Mtz UPPER GASTROINTESTINAL ENDOSCOPY 2017 [place]- mild gastritis UPPER GASTROINTESTINAL ENDOSCOPY 01/2022 Dr. Gaxiola [facility] Family History Problem Relation Name Age of [...] was not done documented in this encounter [facility] 01-05-2024 Instructions Kory Alejandro DO - 01/05/2024 7:00 AM EST Get us copy of workup and lab from Construction Tech , Dr. Galicia. documented in this encounter [facility] 10-08-2023 History of Present illness Narrative Images from the original note were not included. [facility] [address] [facility] [address] [facility] [phone] Visit type: Established Patient Reason [...] Shortness of breath Other reaction(s): Tongue swelling Dyer Hives, Itching and Shortness of breath Other [...] History: Procedure Laterality Date BLADDER REPAIR 06/18/2020 [facility] CATARACT EXTRACTION 06/2023 CHOLECYSTECTOMY 03/2021 Dr. Hercules COLONOSCOPY 12/2017 [place] - small polyp - rech due 2022 CYSTOCELE REPAIR 06/18/2020 EXPLORATORY LAPAROTOMY 1996 endometriosis GASTRIC BYPASS 11/2018 in [place] OTHER SURGICAL HISTORY tubal reversal PARTIAL HYSTERECTOMY 06/2020 still has ovaries/ [place]- Dr. Quesada Aposalist PELVIC LAPAROSCOPY 03/[address] Barbosa RECTOCELE REPAIR 06/18/2020 [facility] SALPINGECTOMY 06/18/2020 TONSILLECTOMY AND ADENOIDECTOMY (HISTORICAL) TOTAL HIP ARTHROPLASTY Right 09/2020 Dr. Duron TUBAL LIGATION 1987 UPPER GASTROINTESTINAL ENDOSCOPY 11/[address] Mtz UPPER GASTROINTESTINAL ENDOSCOPY 12/2017 [place]- mild gastritis UPPER GASTROINTESTINAL ENDOSCOPY 01[facility] History Problem Relation Name Age [...] Apparently was negative. documented in this encounter [facility] 08-02-2023 Telephone encounter Note Referral pended for doctor's signature [facility] 08-02-2023 Miscellaneous Notes Referral pended for doctor's signature Images from the original note were not included. Kory Tom Javon, DO You 30 minutes ago (10:29 AM) EP Please post referral to Dr. Nino, the lokie engineer the patient prefers documented in this encounter [facility] 08-02-2023 Telephone encounter Note Images from the original note were not included. Kory Tom Javon, DO You 30 minutes ago (10:29 AM) EP Please post referral to Dr. Nino, the lokie engineer the patient prefers [facility] 07-30-2023 History of Present illness Narrative Images from the original note were not included. [facility] [address] [place] [address] [address] [facility] [phone] Visit type: Established Patient Reason [...] for gabapentin refill. Recently had consultation with [facility] neurologist for migraines but no change in medicines noted. She was disappointed in that consultation. Apparently fell at work as she slipped on some water and had a valgus stress of the right knee. She also bruised her right hip. X-rays of the right hip and right knee at [place] [facility] apparently were unremarkable. Mild ecchymosis apparently [...] Allergen Reactions Lidocaine Anaphylaxis Other reaction(s): Unknown Dyer Hives, Itching and Shortness of breath Other [...] History: Procedure Laterality Date BLADDER REPAIR 06/18/2020 [facility] CATARACT EXTRACTION 06/2023 CHOLECYSTECTOMY 03/2021 Dr. Hercules COLONOSCOPY 12/2017 [place] - small polyp - rech due 2022 CYSTOCELE REPAIR 06/18/2020 EXPLORATORY LAPAROTOMY 1996 endometriosis GASTRIC BYPASS 11/2018 in [place] OTHER SURGICAL HISTORY tubal reversal PARTIAL HYSTERECTOMY 06/2020 still has ovaries/ [place]- Dr. Quesada Aposalist PELVIC LAPAROSCOPY 03/[address] Barbosa RECTOCELE REPAIR 06/18/2020 [facility] SALPINGECTOMY 06/18/2020 TONSILLECTOMY AND ADENOIDECTOMY (HISTORICAL) TOTAL HIP ARTHROPLASTY Right 09/2020 Dr. Duron TUBAL LIGATION 1987 UPPER GASTROINTESTINAL ENDOSCOPY 11/[address] Mtz UPPER GASTROINTESTINAL ENDOSCOPY 12/2017 [place]- mild gastritis UPPER GASTROINTESTINAL ENDOSCOPY 01[facility]20[facility] Problem Relation Name Age of Onset Cervical cancer Mother Felisa Bolanos 29 Rheum arthritis Mother Felisa Bolanos Diabetes Mother Felisa Bolanos diet cont, alive age 82 Kidney disease Father Florian Bolanos Dementia Father Florian Bloanos alive age 85 Atrial fibrillation Father Florian [...] in the record documented in this encounter [facility] 06-02-2023 History of Present illness Narrative Images from the original note were not included. [facility] [address] [facility] [address] Visit type: Established Patient Reason for Visit: [...] Bowels are what somewhat irregular since her LACEMAKER surgeries. Not interested in colonoscopy referral. No melena or blood. No vaginal bleeding. No change in right hip and leg pain. not heard back from orthopedic surgery. Allergies Allergen Reactions Lidocaine Anaphylaxis Other reaction(s): Unknown Dyer Hives, Itching and Shortness of breath Other [...] History: Procedure Laterality Date BLADDER REPAIR 06/18/2020 [facility] CHOLECYSTECTOMY 03/2021 Dr. Hercules COLONOSCOPY 12/2017 [place] - small polyp - rech due 2022 CYSTOCELE REPAIR 06/18/2020 EXPLORATORY LAPAROTOMY 1996 endometriosis GASTRIC BYPASS 11/2018 in [place] OTHER SURGICAL HISTORY tubal reversal PARTIAL HYSTERECTOMY 06/2020 still has ovaries/ [place]- Dr. Quesada Aposalist PELVIC LAPAROSCOPY 03/[address] Barbosa RECTOCELE REPAIR 06/18/2020 [facility] SALPINGECTOMY 06/18/2020 TONSILLECTOMY AND ADENOIDECTOMY (HISTORICAL) TOTAL HIP ARTHROPLASTY Right 09/2020 Dr. Duron TUBAL LIGATION 1987 UPPER GASTROINTESTINAL ENDOSCOPY 11/[address] Mtz UPPER GASTROINTESTINAL ENDOSCOPY 12/2017 Isamar- mild gastritis UPPER GASTROINTESTINAL ENDOSCOPY 01/2022 Dr. Gaxiola [facility] Family History Problem Relation Name Age of Onset Cervical cancer Mother Felisa Bolanos 29 Rheum arthritis Mother Felisa Bolanos Diabetes Mother Felisa Bolanos diet cont, alive age 82 Kidney disease Father Florian Bolanos Dementia Father Florian Bolanos alive age 85 Atrial fibrillation Father Florian Bolanos Cancer Father Florian Bolanos melanoma Diabetes Sister Aline oral rx and insulin Multiple sclerosis Sister lAine Cervical cancer Sister Aline COPD Sister Aline [...] her clinical rotations documented in this encounter [facility] 05-19-2023 History of Present illness Narrative Images from the original note were not included. [facility] [address] [place] [id number] Visit type: Established Patient Reason for Visit: [...] Allergen Reactions Lidocaine Anaphylaxis Other reaction(s): Unknown Dyer Hives, Itching and Shortness of breath Other [...] History: Procedure Laterality Date BLADDER REPAIR 06/18/2020 [facility] CHOLECYSTECTOMY 03/2021 Dr. Hercules COLONOSCOPY 12/2017 Geleric - small polyp - rech due 2022 CYSTOCELE REPAIR 06/18/2020 EXPLORATORY LAPAROTOMY 1996 endometriosis GASTRIC BYPASS 11/2018 in [place] OTHER SURGICAL HISTORY tubal reversal PARTIAL HYSTERECTOMY 06/2020 still has ovaries/ [place]- Dr. Quesada Aposalist PELVIC LAPAROSCOPY 03/[address] Barbosa RECTOCELE REPAIR 06/18/2020 [facility] SALPINGECTOMY 06/18/2020 TONSILLECTOMY AND ADENOIDECTOMY (HISTORICAL) TOTAL HIP ARTHROPLASTY Right 09/2020 Dr. Duron TUBAL LIGATION 1987 UPPER GASTROINTESTINAL ENDOSCOPY 11/[address] Mtz UPPER GASTROINTESTINAL ENDOSCOPY 12/2017 Isamar- mild gastritis UPPER GASTROINTESTINAL ENDOSCOPY 01[facility] Problem Relation Name Age [...] without acute changes. documented in this encounter [facility] 04-27-2023 History of Present illness Narrative Images from the original note were not included. 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 Is under training to get her advanced degree in nursing as well. 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 She does a lot of stuff around the house. Allergies Allergen Reactions Lidocaine Anaphylaxis Other reaction(s): Unknown Dyer Hives, Itching and Shortness of breath Other [...] History: Procedure Laterality Date BLADDER REPAIR 06/18/2020 [facility] CHOLECYSTECTOMY 03/2021 Dr. Hercules COLONOSCOPY 12/2017 Gellis - small polyp - rech due 2022 CYSTOCELE REPAIR 06/18/2020 EXPLORATORY LAPAROTOMY 1996 endometriosis GASTRIC BYPASS 11/2018 in [place] OTHER SURGICAL HISTORY tubal reversal PARTIAL HYSTERECTOMY 06/2020 still has ovaries/ [place]- Dr. Quesada Aposalist PELVIC LAPAROSCOPY 03/[address] Barbosa RECTOCELE REPAIR 06/18/2020 [facility] SALPINGECTOMY 06/18/2020 TONSILLECTOMY AND ADENOIDECTOMY (HISTORICAL) TOTAL HIP ARTHROPLASTY Right 09/2020 Dr. Duron TUBAL LIGATION 1987 UPPER GASTROINTESTINAL ENDOSCOPY 11/[address] Mtz UPPER GASTROINTESTINAL ENDOSCOPY 12/2017 Gellis- mild gastritis UPPER GASTROINTESTINAL ENDOSCOPY 01/20[facility] Family History Problem Relation Name Age of Onset Cervical cancer Mother Felisa Bolanos Rheum arthritis Mother Felisa Bolanos Diabetes Mother Felisa Bolanos diet cont, alive age 81 Kidney disease Father Florian [place] Dementia Father Florian Luis Miguel alive age [...] health. Encouragement given. documented in this encounter [facility] 03-08-2023 Telephone encounter Note Updated orders pended for dx and doctor's signature [facility] 03-08-2023 Miscellaneous Notes Updated orders pended for dx and doctor's signature documented in this encounter [facility] 03-08-2023 Note Addended by: KIERAN TORREZ on: 03/08/2023 08:21 AM Modules accepted: Orders [facility] 03-08-2023 Note Addended by: KIERAN TORREZ on: 03/08/2023 08:21 AM Modules accepted: Orders [facility] 03-08-2023 Miscellaneous Notes Addended by: KIERAN TORREZ on: 03/08/2023 08:21 AM Modules accepted: Orders Addended by: KORY ALEJANDRO on: 02/04/2023 05:31 PM Modules accepted: Orders Addended by: KIERAN TORREZ on: 02/04/2023 05:18 PM Modules accepted: Orders Updated orders pended for signature. Please address the sedation section. Orders pended for dx and doctor's signature documented in this encounter [facility] 02-04-2023 Note Addended by: KORY LEMOS on: 02/04/2023 05:31 PM Modules accepted: Orders [facility] 02-04-2023 Note Addended by: KORY LEMOS on: 02/04/2023 05:31 PM Modules accepted: Orders [facility] 02-04-2023 Note Addended by: KORY LEMOS on: 02/04/2023 05:31 PM Modules accepted: Orders [facility] 02-04-2023 Note Addended by: KORY LEMOS on: 02/04/2023 05:31 PM Modules accepted: Orders [facility] 02-04-2023 Note Addended by: KORY LEMOS on: 02/04/2023 05:31 PM Modules accepted: Orders [facility] 02-04-2023 Miscellaneous Notes Addended by: KORY ALEJANDRO on: 02/04/2023 05:31 PM Modules accepted: Orders Addended by: KIERAN TORREZ on: 02/04/2023 05:18 PM Modules accepted: Orders Updated orders pended for signature. Please address the sedation section. Orders pended for dx and doctor's signature documented in this encounter [facility] 02-04-2023 Note Addended by: KIERAN TORREZ on: 02/04/2023 05:18 PM Modules accepted: Orders [facility] 02-04-2023 Note Addended by: KIERAN TORREZ on: 02/04/2023 05:18 PM Modules accepted: Orders [facility] 02-04-2023 Note Addended by: KIERAN TORREZ on: 02/04/2023 05:18 PM Modules accepted: Orders [facility] 02-04-2023 Note Addended by: KIERAN TORREZ on: 02/04/2023 05:18 PM Modules accepted: Orders [facility] 02-04-2023 Note Addended by: KIERAN TORREZ on: 02/04/2023 05:18 PM Modules accepted: Orders [facility] 02-04-2023 Telephone encounter Note Updated orders pended for signature. Please address the sedation section. [facility] 02-04-2023 Telephone encounter Note Orders pended for dx and doctor's signature T [facility] 01-12-2023 Note Post Operative Note: PreOp Diagnosis: OAB Post-Procedure Diagnosis: same Procedure: 1. intradetrusor botox injection 100 units 2. cystoscopy Surgeon: Carlton Barbosa Resident/Fellow/Other Web Manager: Nini Camacho Anesthesia: MAC Estimated Blood Loss [...] the note. I personally evaluated the patient [id number] Electronic Signatures: Flip Barbosa) (Signed 12-Jan-2023 14:27) [...] All concerns in message have been addressed. [facility] 01-08-2023 Miscellaneous Notes Placed call to patient. Was able to speak to patient. All concerns in message have been addressed. Call patient to tell her the prescription was completed today. Rx loaded documented in this encounter [facility] 01-08-2023 Telephone encounter Note Call patient to tell her the prescription was completed today. [facility] [employer] 01-08-2023 Telephone encounter Note Rx loaded [facility] 01-01-2023 History of Present illness Narrative Images from the original note were not included. [facility] [address] [address] Visit type: Established Patient Reason for Visit: [...] Allergen Reactions Lidocaine Anaphylaxis Other reaction(s): Unknown Dyer Hives, Itching and Shortness of breath Other [...] History: Procedure Laterality Date BLADDER REPAIR 06/18/2020 [facility] CHOLECYSTECTOMY 03/2021 Dr. Hercules COLONOSCOPY 12/2017 Gellis - small polyp - rech due 2022 CYSTOCELE REPAIR 06/18/2020 EXPLORATORY LAPAROTOMY 1996 endometriosis GASTRIC BYPASS 11/2018 in [place] OTHER SURGICAL HISTORY tubal reversal PARTIAL HYSTERECTOMY 06/2020 still has ovaries/ [place]- Dr. Quesada Aposalist PELVIC LAPAROSCOPY 03/[address] Barbosa RECTOCELE REPAIR 06/18/2020 [facility] SALPINGECTOMY 06/18/2020 TONSILLECTOMY AND ADENOIDECTOMY (HISTORICAL) TOTAL HIP ARTHROPLASTY Right 09/2020 Dr. Duron TUBAL LIGATION 1987 UPPER GASTROINTESTINAL ENDOSCOPY 11/[address] Mzt UPPER GASTROINTESTINAL ENDOSCOPY 12/2017 Gellis- mild gastritis UPPER GASTROINTESTINAL ENDOSCOPY 01/20[facility] History Problem Relation Name Age [...] induration or edema. documented in this encounter [facility] 01-01-2023 Instructions Kory Alejandro DO - 01/01/2023 8:00 AM EST Call with worsening symptoms of respiratory infection. Await chest x-ray documented in this encounter [facility] 11-27-2022 History of Present illness Narrative Images from the original note were not included. [facility] [address] [facility] [address] Visit type: Established Patient Reason for Visit: [...] Allergen Reactions Lidocaine Anaphylaxis Other reaction(s): Unknown Dyer Hives, Itching and Shortness of breath Other [...] History: Procedure Laterality Date BLADDER REPAIR 06/18/2020 [facility] CHOLECYSTECTOMY 03/2021 Dr. Hercules COLONOSCOPY 12/2017 Gellis - small polyp - rech due 2022 CYSTOCELE REPAIR 06/18/2020 EXPLORATORY LAPAROTOMY 1996 endometriosis GASTRIC BYPASS 11/2018 in [place] HYSTERECTOMY 06/18/2020 still has ovaries/ [place]- Dr. Quesada Aposalist OTHER SURGICAL HISTORY tubal reversal PELVIC LAPAROSCOPY 03/[address] Barbosa RECTOCELE REPAIR 06/18/2020 [facility] SALPINGECTOMY 06/18/2020 TONSILLECTOMY AND ADENOIDECTOMY (HISTORICAL) TOTAL HIP ARTHROPLASTY Right 09/2020 Dr. Duron TUBAL LIGATION 1987 UPPER GASTROINTESTINAL ENDOSCOPY 11/[address] Mtz UPPER GASTROINTESTINAL ENDOSCOPY 12/2017 Gellis- mild gastritis UPPER GASTROINTESTINAL ENDOSCOPY 01/20[facility] Problem Relation Name Age of Onset Diabetes Sister Cervical cancer Mother Luis Miguel Rheum arthritis Mother [place] Kidney disease Father [place] Parkinsonism Sister Diabetes Mother [place] diet cont, alive age 81 Dementia Father [place] alive age 83 Alcohol abuse Sister Cervical cancer Sister Atrial fibrillation Father Luis Miguel Cancer Father [place] melanoma Multiple sclerosis Sister Cervical cancer Sister [...] from last fall. 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 On Trospium 20 mg QD3. Bhdffhcyskfdijv8x. Bilateral hydronephrosis, no obstructing stones on CTU [...] allergy tab. Patient is a former smoker. 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 On Trospium 20 mg QD3. Wevxwvjlpykaxyr8e. Bilateral hydronephrosis, no obstructing stones on CTU [...] allergy tab. Patient is a former smoker. EH-Byurdvk-Xpgbaixm ERROL 77403 Work Phone: 07-22-2022 History of Present illness [...] and intradetrusor Botox injections 100 units . Ehzhmefpqcslfuy1a. Bilateral hydronephrosis, no obstructing stones on CTU [...] or urgency. Patient is a former smoker.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 information to criminally investigate or prosecute any alcohol or drug abuse patient.[facility] the event this information is protected by the Federal Confidentiality of Alcohol and Drug Abuse Patient Records regulations: The Federal rules restrict any use of the information to criminally investigate or prosecute any alcohol or drug abuse patient.[facility] the event this information is protected by the Federal Confidentiality of Alcohol and Drug Abuse Patient Records regulations: The Federal rules restrict any use of the information to criminally investigate or prosecute any alcohol or drug abuse patient.[facility] the event this information is protected by the Federal Confidentiality of Alcohol and Drug Abuse Patient Records regulations: The Federal rules restrict any use of the information to criminally investigate or prosecute any alcohol or drug abuse patient.[facility] the event this information is protected by the Federal Confidentiality of Alcohol and Drug Abuse Patient Records regulations: The Federal rules restrict any use of the information to criminally investigate or prosecute any alcohol or drug abuse patient.[facility] Care Teams (unrecognized sec tion and content) Director Of Science Relationship Specialty Start Date End Date Kory Alejandro, DO [address] [place] [address] PCP - General 10/02/15 Director Of Science Relationship Specialty Start Date End Date Kory Alejandro, DO [address] [place] [address] PCP - General 10/02/15 Director Of Science Relationship Specialty Start Date End Date Kory Alejandro, DO [address] [place], [place] [id number] PCP - General 10/02/15 Director Of Science Relationship Specialty Start Date End Date Kory Alejandro DO [address] [place] [address] PCP - General 10/02/15 Director Of Science Relationship Specialty Start Date End Date Kory Alejandro, [address] [place] [address] PCP - General 10/02/15 Director Of Science Relationship Specialty Start Date End Date Kory Alejandro, [address] [place] [address] PCP - General 10/02/15 Director Of Science Relationship Specialty Start Date End Date Kory Alejandro, DO [address] [place] [address] PCP - General 10/02/15 Director Of Science Relationship Specialty Start Date End Date Kory Alejandro, [address] [place] [address] PCP - General 10/02/15 Director Of Science Relationship Specialty Start Date End Date Kory Alejandro, [address] [place] [address] PCP - General 10/02/15 Director Of Science Relationship Specialty Start Date End Date Kory Alejandro, DO [address] [place] [phone] PCP - General 10/02/15 Director Of Science Relationship Specialty Start Date End Date Kory Alejandro, DO [address] [place] [phone] PCP - General 10/02/15 Director Of Science Relationship Specialty Start Date End Date JavonKory, DO [address] [place] [phone] PCP - General 10/02/15 Director Of Science Relationship Specialty Start Date End Date JavonKory, DO [address] [place] [address] PCP - General 10/02/15 Director Of Science Relationship Specialty Start Date End Date Javon Kory Tom, DO [address] [place] [phone] PCP - General 10/02/15 Director Of Science Relationship Specialty Start Date End Date Javon Kory Tom, DO [address] [place] [phone] PCP - General 10/02/15 Director Of Science Relationship Specialty Start Date End Date JavonKory, DO [address] [place] [address] PCP - General 10/02/15 Director Of Science Relationship Specialty Start Date End Date JavonKory, DO [address] [place] [address] PCP - General 10/02/15 Director Of Science Relationship Specialty Start Date End Date Javon Kory Tom, DO [address] [place] [phone] PCP - General 10/02/15 Director Of Science Relationship Specialty Start Date End Date Kory Alejandro, DO [address] [place] [address] PCP General 10/02/15 Director Of Science Relationship Specialty Start Date End Date Kory Alejandro, DO [address] [place], [place] [phone] [facility] General 10/02/15 Director Of Science Relationship Specialty Start Date End Date Kory Alejandro, DO [address] [place], [place] [phone] [facility] 10/02/15 Director Of Science Relationship Specialty Start Date End Date Kory Alejandro DO [address] [place] [address] [facility] 10/02/15 Director Of Science Relationship Specialty Start Date End Date Kory Alejandro DO [address] [place] [address] [facility] 10/02/15 FOR RECORDS PERTAINING TO PATIENTS WHO [...] BE BASED ON THE PRIMARY CLINICAL RECORDS. [facility] [email or web address] [facility]. provides no warranty or guarantee of the accuracy or completeness of information in this document.
[2025-09-07 08:20] LABS: Hematocrit 38.1 % (37-47); Hemoglobin 12.4 g/dL (12.0-15.0); Immature Granulocytes Count 0.010 X10^3/uL (0.0-0.0); Mean Corp Hgb Conc 32.5 g/dL (32-36); Mean Corpuscular Volume 97.2 fL (81-99); Mean Platelet Vol. 10.0 fl (6.2-12.0); NRBC Flagged by Analyzer 0 % (0-5); Platelet Count 276 K/mm3 (150-450); RBC Distribution Width CV 12.4 % (11.6-14.6); RBC Distribution Width SD 44.9 fl (35.1-43.9); Red Blood Count 3.92 M/mm3 (4.2-5.4); White Blood Count 4.6 K/mm3 (4.4-11.0)
[2025-09-07 08:39] LABS: AST(SGOT) 32 U/L (<=31); Alanine Aminotransfer ALT/SGPT 34 U/L (<=34); Albumin, Serum 4.5 g/dL (3.4-4.8); Alkaline Phosphatase 99 U/L (35-104); Anion Gap 10 (5-15); BUN 9 mg/dL (4-19); BUN/Creat Ratio 15.8 RATIO (10-20); Bilirubin, Direct 0.16 mg/dL (0.00-0.30); Calcium,Total 9.4 mg/dL (7.6-11.0); Carbon Dioxide 27.2 mmol/L (21.0-32.0); Chloride 104 mmol/L (98-108); Globulin 2.5 g/dL (2.2-4.2); Glucose 88 mg/dL (70-99); Potassium 3.7 mmol/L (3.3-5.1)
[2025-09-07 08:40] LABS: CRP < 3.00 mg/L (0.0-3.0)
[2025-09-08 13:08] LABS: Anti-Smooth Muscle ABS 4 Units (0-19); Immunoglobulin A 263 mg/dL (87-352); Immunoglobulin G 785 mg/dL (586-1602); Immunoglobulin M 111 mg/dL (26-217)
== END | disposition home or self-care (01) ==
LOC: MTLAB 09-04 08:14 → LAB.FUTURE 07:00 → LAB 07:44
DX: M35.9 Systemic involvement of connective tissue, unspecified (principal); R76.89 Other specified abnormal immunological findings in serum; M25.50 Pain in unspecified joint; Z79.899 Other long term (current) drug therapy
CPT/HCPCS: 36415; 80053; 82248; 82390; 82784; 83516; 85025; 85652; 86140

== ENCOUNTER → 2025-10-16 | Outpatient (CLI) | payer OTHER, SELFPAY ==
--- NOTE | 2025-10-16 07:25 | US_ITS ---
PROCEDURE: ABD LIMITED W/ ELASTOGRAPHY, 10/16/2025 REASON FOR EXAM: ELEVATED LIVER ENZYMES COMPARISON: None TECHNIQUE: Grayscale and color Doppler imaging of the right upper quadrant was performed. Elastography was performed for non-invasive assessment of liver tissue stiffness utilizing a [employer] S-shear wave imaging unit. FINDINGS: Liver: Grossly unremarkable echotexture. 14.7 cm in length. Focal homogeneously echogenic lesion in the subcapsular LEFT lobe measures 1.7 x 1.7 x 1.0 cm. Gallbladder: Cholecystectomy. Biliary tree: Unremarkable. CBD measures 5 mm. Pancreas: Partially obscured by shadowing bowel gas, grossly unremarkable as visualized. Right kidney: 4 x 6 x 3 mm echogenic shadowing possible nonobstructing renal calculus versus vascular calcification. No hydronephrosis. 9 x 8 x 7 mm cyst. 10.4 cm in length. Other: No visualized free fluid. Hepatic elastography: Number of measurements: 6. US probe: CA1-7A. EQI median: 11.0 kPa EQI median velocity: 1.91 m/s IQR/Med: 23.4% (kPa) and 12.2% (m/s). If the IQR/Med is IQR/median >30% (for kPa) or >15% in m/s, the variance in the measurements is a large and the accuracy of the measurement may be in question. US/ABD Limited w/ Elastography IMPRESSION: 1. Grossly unremarkable hepatic echotexture. 2. Liver stiffness is 11.0 kPa. Per the below 2020 SRU criteria, this is sugges tive of compensated advanced chronic liver disease but requires further testing for confirmation. 3. 1.7 cm LEFT lobe hepatic lesion with sonographic appearance compatible with hemangioma however this is not definitive by ultrasound. Correlate with any available outside imaging to assess stability. If unavailable, recommend either multiphase hepatic protocol MRI/CT with and without IV contrast, or sonographic follow-up to ensure stability. 4. Additional description as above. Assessment is per the Update to the SRU Liver Elastography Consensus Statement (2020) Note that the above assessment of liver fibrosis is vendor-neutral and intended for use in fibrosis related to viral etiologies and non-alcoholic fatty-liver disease (NAFLD); in causes other than viral hepat itis and NAFLD, the cutoff values are currently not well established. In some patients with NAFLD, the cutoff values for cACLD may be lower (7-9 kPa). Note also that in the setting of elevated LFTs, nonfasting or vascular congestion, the stage of lifer fibrosis may be overestimated. Previous SRU reference values: <1.37 m/s (5.7kPa): No to mild fibrosis 1.37 m/s - 2.2 m/s: Moderate to severe fibrosis >2.2 m/s (15kPa): Significant fibrosis / cirrhosis Incidental Finding Alert: As above. Recommend follow-up as above and management of this incidental finding should follow the [employer] (ACR) Incidental Findings Committee recommendatio ns. Reading Location: [id number]
== END | disposition home or self-care (01) ==
PROVIDERS: PCP Family Medicine
DX: R74.8 Abnormal levels of other serum enzymes (principal)
CPT/HCPCS: 76705; 76981